=== PATIENT | male | born 1955 | race Caucasian/White ===

== ENCOUNTER 2019-02-21 11:57 | Outpatient (CLI) | payer MEDICARE, SELFPAY ==
[2019-02-21 13:22] LABS: CREATININE 1.15 mg/dL (0.70-1.30); Cholesterol 219 mg/dL (50-200); Glucose 88 mg/dL (70-100); HDL Cholesterol 48 mg/dL (40-60); LDL CHOLESTEROL 152 mg/dL (<100); Potassium 4.5 mmol/L (3.5-5.1); Triglyceride 75 mg/dL (30-150)
== END 2019-02-21 12:17 ==
PROVIDERS: PCP General Practice; Visit Provider General Practice
DX: I10 Essential (primary) hypertension (principal); E78.89 Other lipoprotein metabolism disorders
CPT/HCPCS: 36415; 80061; 82947; 83721; 82565; 84132

== ENCOUNTER 2019-02-27 14:58 | Inpatient (IN) | payer MEDICARE, BC, SELFPAY ==
[2019-02-27] VITALS (101 sets, daily range): BP systolic 107–176; BP diastolic 67–127; PULSE 86–155; RESP 10–45; TEMP 36.8–37.4; O2SAT 90–100
--- NOTE | 2019-02-27 15:04 | DI.RAD_ITS ---
SYMPTOM/DIAGNOSIS: CHEST PAIN, SOB, S/P CHEST TUBE PORTABLE AP CHEST: Comparison is made with 12/05/17. There is a left sided pneumothorax seen laterally at both upper and lower lobes. The amount of collapse is roughly 30%. There is no mediastinal shift. The heart size is normal. The aorta is mildly tortuous. The right lung appears clear. IMPRESSION: Moderate sized left pneumothorax. PORTABLE AP CHEST at 614 pm: Comparison is made with the exam performed earlier the same day at 347 pm. A left sided chest tube has been inserted with the pigtail projecting in the upper lobe. There has been marked improvement of the pneumothorax which is barely visible at the left apex. There are mildly increased densities at the left lung base. The heart size remains normal. The left lung is clear. IMPRESSION: Re-expansion of left lung status post placement of left chest tube without significant residual pneumothorax.
--- NOTE | 2019-02-27 15:04 | ED.GENADUL_ITS ---
Discharge Plan Disposition Patient Disposition: [facility] INPATIENT Condition: Improving Discharge Details Chief Complaint: SOB Clinical Impression: Spontaneous pneumothorax, Acute exacerbation of chronic obstructive pulmonary disease (COPD) Admit Date/Time: 02/27/19 19:43 Admit Provider: Rosette Dodd Attending Provider: Rosette Dodd Primary Care Provider: Alber Garcia ED Provider: Ashley Bergeron Discharge Data Discharge Date/Time-TO BE ENTERED AT DEPARTURE: 02/27/19 21:05 Medical Decision Making 63-year-old male with history of COPD, hypertension, obstructive sleep apnea was transferred shortness of breath and chest pain since last night. Patient in moderate respiratory distress on arrival, speaking in 2-3 word sentences, diminished breath sounds with wheezing and rhonchi throughout. Will give nebs and steroids, place on bipap. EKG notes a rate of 112, sinus, no acute ST depression or elevation, significant movement. Able to obtain CT chest screening for lung cancer from [facility] on 01/17/2019 which noted moderate central lobar emphysema, bilateral lower lung predominant bronchial wall thickening, mild atelectasis primarily in the left lower lung, severe coronary artery atherosclerotic calcification, very small hiatal hernia and incompletely characterized small hypodense lesions in the right and left liver lobe stable compared to prior CT but no report of PE. 1615 --chest x-ray reviewed and notes a moderate-sized left pneumothorax. Discussed with surgery and will help place pigtail chest tube. Patient removed from BiPAP due to concern for barotrauma and placed on nonrebreather. There are no ICU or telemetry beds available here. 1700 --Discussed with [facility] and no bed availability. Discussed with [facility] and no bed availability on floor but if pt does not improve after chest tube, can call back to discuss whether ICU available. 1800 --pigtail chest tube placed with assistance from surgeon Dr. Dodd at bedside. Patient feels much better. Vitals remained stable. Labs reviewed and note a white blood cell count of 11, ABG noted pH 7.3, PCO2 50, PO2 79 on BiPAP, troponin negative. 1940 --post procedure x-ray notes resolution of pneumothorax. Vitals remained stable and patient feels better. There is now a telemetry bed available here. Dr. Dodd accepts pt here for admission. Medical Records Medical records reviewed: Yes I reviewed the patient's medical records. Imaging Data Radiologic Study: Radiologist's impression: XR Chest, 1 View EXAM DATE/TIME: 02/27/2019 3:57 PM CLINICAL HISTORY: 63 years old, male; Signs and symptoms; Other: Cp/sob TECHNIQUE: Imaging protocol: XR of the chest, 1 view. COMPARISON: CR PORTABLE CHEST ONE VIEW 12/05/2017 3:09 PM FINDINGS: Lungs: Emphysematous changes. Pleural space: Left pneumothorax (30%). No sizable pleural effusion. Heart/Mediastinum: No cardiomegaly. Bones/joints: Unremarkable. IMPRESSION: Left pneumothorax (30%). Radiologic Study #2: Radiologist's impression: XR Chest, 1 View EXAM DATE/TIME: 02/27/2019 6:25 PM CLINICAL HISTORY: 63 years old, male; Signs and symptoms; Other: S/P chest tube; Confirm improvement TECHNIQUE: Imaging protocol: XR of the chest, 1 view. COMPARISON: CR XR PORTABLE CHEST AP 02/27/2019 3:47 PM FINDINGS: Tubes, catheters and devices: Interval placement of a left chest tube. Lungs: Emphysematous changes. Pleural space: No appreciable left pneumothorax. No sizable pleural effusion. Heart/Mediastinum: No cardiomegaly. Bones/joints: Unremarkable. IMPRESSION: Interval placement of a left chest tube. No appreciable left pneumothorax. Lab Data Lab results reviewed: Yes I reviewed the patient's lab results. Laboratory Tests Range/Units 02/27/19 02/27/19 02/27/19 15:25 15:25 16:23 WBC (4.4-10.8) k/cumm 11.30 H RBC (4.50-6.00) m/cumm 5.14 Hgb (13.5-17.5) g/dL 15.2 Hct (40.0-50.0) % 46.4 MCV (80-95) fL 90.3 MCH (27.0-33.0) pg 29.6 MCHC (32.0-36.0) g/dL 32.8 RDW (11.8-14.1) % 13.1 Plt Count (130-400) x1000/uL 249 MPV (8.0-11.0) fL 9.3 Immature Gran % 0.4 Neutrophils % 74.0 Lymphocytes % 13.7 Monocytes % 8.3 Eosinophils % 3.0 Basophils % 0.6 Absolute Neutrophils (1.2-6.7) k/cumm 8.36 H Absolute Lymphocytes (1.2-3.4) k/cumm 1.55 Absolute Monocytes (0.11-0.7) k/cumm 0.94 H Absolute Eosinophils (0.0-0.7) k/cumm 0.34 Absolute Basophils (0.0-0.2) k/cumm 0.07 Sample Site Right radial pCO2 (34-47) mmHg 50 H pO2 (83-108) mmHg 79 L O2 Saturation (94-98) % 95 ABG pH (7.35-7.45) 7.30 L ABG HCO3 (22-28) mmol/L 25 ABG Total CO2 (22-29) mmol/L 22 ABG Base Excess (-3-3) mmol/L -2.0 Oxygen Liter Flow L Bipap FiO2 % 28 Sodium (136-145) mmol/L 136 Potassium (3.5-5.1) mmol/L 4.6 Chloride (98-107) mmol/L 100 Carbon Dioxide (21.0-32.0) mmol/L 27.5 Anion Gap (3-11) mmol/L 8.5 BUN (7-18) mg/dL 16 Creatinine (0.70-1.30) mg/dL 1.17 Estimated GFR/1.73 m2 (mL/min/1.73m2) >= 60.00 Glucose (70-100) mg/dL 109 H Calcium (8.5-10.1) mg/dL 8.8 Magnesium (1.8-2.4) mg/dL 2.3 Total Bilirubin (0.2-1.0) mg/dL 0.4 AST (15-37) U/L 31 ALT (12-78) U/L 32 Alkaline Phosphatase (46-116) U/L 69 Troponin I (0.00-0.06) ng/mL < 0.02 NT-Pro-B Natriuret Pep ( - 299) pg/mL 34 Total Protein (6.4-8.2) g/dL 8.2 Albumin (3.4-5.0) g/dL 3.8 ECG Data Attestation: I personally reviewed and interpreted this ECG (s) as follows: Interpretation: Rate of 112, sinus tachycardia, significant movement, no acute ST elevation or depression. QTc 404. QRS 98. HPI General Mode of arrival: ambulatory . Date/Time Provider Initiated Documentation: 02/27/19 15:04 . Limitations to Documentation: no limitations . Information obtained by: patient . HPI Narrative: Patient is a 63-year-old male with a history of COPD, hypertension, obstructive sleep apnea presents with chest pain and shortness of breath since this morning. He admits to heartburn- like pain in his chest throughout the week. Also admits to cough but denies fever. Patient states he was seen at [facility] recently in which she had a CT chest and was told he possibly has a blood clot in his lung. He denies taking any anticoagulation. Related Data Home Medications Medication Instructions Recorded Confirmed aspirin [Aspir-81] 81 mg PO DAILY tab-cap 06/15/16 02/27/19 lisinopril 5 mg PO DAILY tab-cap 06/15/16 02/27/19 albuterol sulfate [ProAir HFA] 2 inh INHALATION Q6H PRN PRN 11/28/17 02/27/19 Fluticasone/Salmeterol [Advair 1 ea INHALATION BID #1 blst.w.dev 12/05/17 250-50 Diskus] albuterol sulfate 2.5 mg INHALATION Q6H PRN #10 vial 12/05/17 02/27/19 nebulizers [AeroEclipse II #1 ea 12/05/17 Nebulizer] Previous Rx's Medication Instructions Recorded Fluticasone/Salmeterol [Advair 1 ea INHALATION BID #1 blst.w.dev 12/05/17 250-50 Diskus] albuterol sulfate 2.5 mg INHALATION Q6H PRN #10 vial 12/05/17 nebulizers [AeroEclipse II #1 ea 12/05/17 Nebulizer] Allergies Allergy/AdvReac Type Severity Reaction Status Date / Time No Known Allergies Allergy Unverified 02/27/19 15:59 Review of Systems Review of Systems All systems reviewed & are unremarkable except as noted in HPI and below Constitutional Reports as per HPI, Denies chills and Denies fever(s) Eyes Denies blurry vision ENT Denies dizziness, Denies sore throat and Denies throat swelling Cardiovascular Reports chest pain and Reports dyspnea Respiratory Denies cough and Reports dyspnea Gastrointestinal Denies abdominal pain, Denies diarrhea and Denies vomiting Genitourinary Denies hematuria and Denies dysuria Musculoskeletal Denies back pain and Denies numbness Integumentary/Breasts Denies lesions and Denies rash Neurologic Denies dizziness, Denies focal weakness and Denies numbness Allergic/Immunologic Denies throat swelling PFSH Medical History COPD (chronic obstructive pulmonary disease) (Chronic) Emphysematous bleb of lung (Acute) Ruptured emphysematous bleb (Acute) COPD (chronic obstructive pulmonary disease) (Chronic) Surgical History Arthroplasty of knee Colonoscopy - MAC (07/07/16) Social History Smoking/Tobacco Use Status: Former Tobacco Use Drug use: Never Substance use type: does not use Do you feel safe in your relationship?: Yes Exam Const General: cooperative, healthy appearing and no acute distress HENMT Head: normal to inspection Face and sinus: normal facial exam Eyes General: appearance normal, both eyes and all related structures Pupils: PERRL EOM: EOM intact bilaterally Neck Neck: normal visual inspection and No submandibular swelling Lymphatic: no lymphadenopathy noted Chest Chest: normal inspection of the chest and no tenderness Resp Effort & Inspection: normal respiratory effort and able to speak in complete sentences (2-3 word sentences) Auscultation: other (Diminished breath sounds throughout with scattered wheezing and rhonchi.) Cardio Rate: regular rate Rhythm: regular rhythm GI Inspection: normal to inspection Palpation: soft, not firm, not rigid and nontender Auscultation: normal bowel sounds Skin General skin exam: no rashes or lesions noted Neuro General: alert, awake and oriented x3 Cognition: normal cognition Speech: speech normal Motor: muscle tone normal throughout Sensory Exam: no sensory deficits noted Extrem General: normal to inspection and full ROM Other: 2+ pitting edema bilateral lower extremities Psych Appearance: grossly normal Mental Status: mental status grossly normal Speech and Movement: speech and movement normal Affect: normal affect Procedures Chest Tube Chest Tube 1: Chest Tube Location: fifth interspace (Left) Size of [place] Tube (mm): 14 Chest Tube Prep: betadine prep, sterile drapes applied and sterile dressing applied Local Anesthetic: Lidocaine 1% and with Epi Amount of anesthesia used (mL): 20 Incision Made With: #11 blade Post Procedure: sutured to skin and sterile dressing applied Post Procedure CXR?: Yes Patient Tolerated Procedure: Yes Critical Care Time Critical Care Time: Yes Total Critical Care Time: 45 Attestation: Total of 45 minutes including on arrival due to respiratory distress requiring bipap and then with placement of chest tube after determining pneumothorax.
[2019-02-27] MEDS: methylPREDNISolone SUCC 125 MG VIAL IVP (15:30)
[2019-02-27 15:45] LABS: Abs Immature Grans 0.04 k/cumm (0.0-0.09); Absolute Basophil Count 0.07 k/cumm (0.0-0.2); Absolute Eosinophil Count 0.34 k/cumm (0.0-0.7); Absolute Lymphocyte Count 1.55 k/cumm (1.2-3.4); Absolute Monocyte Count 0.94 k/cumm (0.11-0.7); Absolute Neutrophil Count 8.36 k/cumm (1.2-6.7); Basophils % 0.6; HCT 46.4 % (40.0-50.0); HGB 15.2 g/dL (13.5-17.5); Immature Grans % 0.4; Lymphocytes % 13.7; Mean Corp. HGB Concentration 32.8 g/dL (32.0-36.0); Mean Corpuscular Hemoglobin 29.6 pg (27.0-33.0); Mean Corpuscular Volume 90.3 fL (80-95); Mean Platelet Volume 9.3 fL (8.0-11.0); Monocytes % 8.3; Platelet Count 249 x1000/uL (130-400); RBC 5.14 m/cumm (4.50-6.00); RBC Distribution Width 13.1 % (11.8-14.1)
[2019-02-27 16:03] LABS: ALT 32 U/L (12-78); AST 31 U/L (15-37); Albumin 3.8 g/dL (3.4-5.0); Alkaline Phosphatase 69 U/L (46-116); Anion Gap 8.5 mmol/L (3-11); BUN 16 mg/dL (7-18); Bilirubin, Total 0.4 mg/dL (0.2-1.0); CO2 27.5 mmol/L (21.0-32.0); CREATININE 1.17 mg/dL (0.70-1.30); Calcium 8.8 mg/dL (8.5-10.1); Chloride 100 mmol/L (98-107); Glucose 109 mg/dL (70-100); Magnesium 2.3 mg/dL (1.8-2.4); NT-proBNP 34 pg/mL; Potassium 4.6 mmol/L (3.5-5.1); Sodium 136 mmol/L (136-145); Total Protein 8.2 g/dL (6.4-8.2)
[2019-02-27 16:04] LABS: Troponin I < 0.02 ng/mL (0.00-0.06)
[2019-02-27] MEDS: Albuterol 2.5 MG/3 ML INH SOLN VIAL (16:13)
[2019-02-27 16:27] LABS: HCO3 25 mmol/L (22-28); pCO2 50 mmHg (34-47); pO2 79 mmHg (83-108); sO2 95 % (94-98); tCO2 22 mmol/L (22-29)
[2019-02-27 16:29] LABS: FIO2 28 %; FIO2L BIPAP L; Site Right Radial
--- NOTE | 2019-02-27 17:03 | DI.VRAD_ITS ---
EXAM: XR Chest, 1 View EXAM DATE/TIME: 02/27/2019 3:57 PM CLINICAL HISTORY: 63 years old, male; Signs and symptoms; Other: Cp/sob TECHNIQUE: Imaging protocol: XR of the chest, 1 view. COMPARISON: CR PORTABLE CHEST ONE VIEW 12/05/2017 3:09 PM FINDINGS: Lungs: Emphysematous changes. Pleural space: Left pneumothorax (30%). No sizable pleural effusion. Heart/Mediastinum: No cardiomegaly. Bones/joints: Unremarkable. IMPRESSION: Left pneumothorax (30%). THIS REPORT CONTAINS FINDINGS THAT MAY BE CRITICAL TO PATIENT CARE. The findings were verbally communicated via telephone conference with Dr. Sneha Bergeron at 5:00 PM EDT on 02/27/2019. The findings were acknowledged and understood. Dictated and Authenticated by: Puneet Galindo MD. Ordering:MAEVE Ramirez MD
[2019-02-27] MEDS: Normal Saline 1,000 ML 50 ML IV (17:45)
[2019-02-27] MEDS: Midazolam 2 MG/2 ML VIAL (17:50)
[2019-02-27] MEDS: fentaNYL 100 MCG/2 ML VIAL ×2 (17:55→20:57)
--- NOTE | 2019-02-27 18:32 | DI.VRAD_ITS ---
EXAM: XR Chest, 1 View EXAM DATE/TIME: 02/27/2019 6:25 PM CLINICAL HISTORY: 63 years old, male; Signs and symptoms; Other: S/P chest tube; Confirm improvement TECHNIQUE: Imaging protocol: XR of the chest, 1 view. COMPARISON: CR XR PORTABLE CHEST AP 02/27/2019 3:47 PM FINDINGS: Tubes, catheters and devices: Interval placement of a left chest tube. Lungs: Emphysematous changes. Pleural space: No appreciable left pneumothorax. No sizable pleural effusion. Heart/Mediastinum: No cardiomegaly. Bones/joints: Unremarkable. IMPRESSION: Interval placement of a left chest tube. No appreciable left pneumothorax. Dictated and Authenticated by: Puneet Galindo MD. Ordering:MAEVE Ramirez MD
--- NOTE | 2019-02-27 19:52 | W.PM.HP.N ---
Date of service: 02/27/19 Time of Service: 19:52 Assessment and Plan (1) Ruptured emphysematous bleb: Current visit: No Status: Acute ptx catheter placed- left cxr show resolution of PTX O2 pulm toilet repeat cxr in am. try to get off suction in am does have pulmonolgists. Had CT of chest x1 month prior. review CT and if lg amount of blebs considerate elective resection/vats he is currently tobacco free. (2) Emphysematous bleb of lung: Current visit: No Status: Acute (3) COPD (chronic obstructive pulmonary disease): Current visit: No Status: Chronic (4) HTN (hypertension): Current visit: No Status: Chronic History of Present Illness Consults Consult date: 02/27/19 Requesting physician: Ashley Bergeron Narrative: pt came inito ED w/ spontaeous TPX. pt has hx of COPD. recently dg. had CT done at [facility] an dwas suppose to be starting pulm rehab [facility]. Got up at 4am and took shower. Started having severe chest pain and sob. Came into ED at noon. Denies trauma or coughing heavily. No prior PTX. no prior chest Sxs. Did smoke 2ppd for 50 yrs. PTX catheter placed left CXR shows complete resolution of PTX. Pt will be admitted to the floor and obs and suction. Will f/u w/ [facility] as outpt. Review of Systems Review of Systems All systems reviewed & are unremarkable except as noted in HPI and below Constitutional Reports as per HPI, Reports system reviewed and no additional complaints, except as docu, Denies anorexia, Denies chills, Denies difficulty sleeping, Denies fatigue, Denies headache(s), Denies lethargy, Denies malaise, Denies poor appetite, Denies weakness, Denies weight gain and Denies weight loss Eyes Reports as per HPI, Reports system reviewed and no additional complaints, except as docu and Denies change in vision ENT Reports system reviewed and no additional complaints, except as docu, Reports as per HPI, Denies change in voice, Denies dental pain, Denies dysphagia, Denies dizziness, Denies facial pain, Denies headache(s) and Denies odynophagia Cardiovascular Reports as per HPI, Reports system reviewed and no additional complaints, except as docu, Denies chest pain, Denies chest pain with activity, Denies syncope, Denies leg edema and Reports dyspnea Respiratory Reports as per HPI, Reports system reviewed and no additional complaints, except as docu, Denies chest congestion, Reports cough, Reports pain with cough and Reports dyspnea Comments: severe SOB and low sats. Has never had PTX before. denies chest trauma. Had CT f chest 1 month ago- does not have results. Gastrointestinal Reports as per HPI, Reports system reviewed and no additional complaints, except as docu, Denies abdominal pain, Denies bloating, Denies change in bowel habits, Denies change in stool character, Denies constipation, Denies cramping, Denies dysphagia, Denies early satiety, Denies heartburn, Denies diarrhea, Denies nausea, Denies odynophagia and Denies vomiting Genitourinary Reports system reviewed and no additional complaints, except as docu Musculoskeletal Reports system reviewed and no additional complaints, except as docu, Reports as per HPI, Denies abnormal gait, Denies arthralgias and Denies muscle weakness Integumentary/Breasts Reports system reviewed and no additional complaints, except as docu, Reports as per HPI, Denies changing lesions, Denies new lesions and Denies jaundice Neurologic Reports system reviewed and no additional complaints, except as docu, Reports as per HPI, Denies abnormal speech, Denies abnormal gait, Denies dizziness, Denies syncope, Denies headache(s), Denies memory loss and Denies weakness Psychiatric Reports system reviewed and no additional complaints, except as docu, Reports as per HPI, Denies change in appetite and Denies memory loss Endocrine Denies fatigue, Denies polydipsia and Denies polyuria Hematologic/Lymphatic Reports system reviewed and no additional complaints, except as docu, Denies easy bleeding and Denies easy bruising Allergic/Immunologic Denies system reviewed and no additional complaints, except as docu, Reports as per HPI and Denies urticaria PFSH Medical History HTN (hypertension) (Chronic) COPD (chronic obstructive pulmonary disease) (Chronic) Emphysematous bleb of lung (Acute) Ruptured emphysematous bleb (Acute) COPD (chronic obstructive pulmonary disease) (Chronic) Surgical History Arthroplasty of knee Colonoscopy - MAC (09/30/16) Social History Smoking/Tobacco Use Status: Former Tobacco Use Drug use: Never Substance use type: does not use Do you feel safe in your relationship?: Yes Meds Allergies Allergy/AdvReac Type Severity Reaction Status Date / Time No Known Allergies Allergy Verified 03/06/19 14:47 Exam Const General: cooperative, healthy appearing, comfortable, no acute distress, well developed and well groomed Nutritional Appearance: average body habitus and well nourished Orientation: alert, awake and oriented x3 HENMT Head: normal to inspection, normocephalic and atraumatic Ears: hearing grossly normal bilaterally and external ears normal General nose exam: external nose normal Face and sinus: normal facial exam and sinuses nontender Mouth: oral mucosae normal, lip normal, tongue normal and moist mucous membranes Teeth and gingiva: dentition normal Eyes General: appearance normal, both eyes and all related structures Conjunctivae: conjunctivae normal Sclera: sclerae normal Pupils: PERRL Neck Neck: normal visual inspection and full ROM Chest Chest: normal inspection of the chest Resp Effort & Inspection: abnormal respiratory pattern, cough, labored, respiratory distress and tachypneic Auscultation: clear to auscultation bilaterally, no rales, no rhonchi and no wheezes Cardio Jugular venous pressure: no JVD Rate: tachycardic Rhythm: regular rhythm and other (sinus tach) GI Inspection: normal to inspection, no edema and non-distended Palpation: soft, no masses, nontender and No ascites Auscultation: normal bowel sounds Skin General skin exam: no rashes or lesions noted Trauma: no lacerations or abrasions Neuro General: alert, oriented x3, oriented, gait normal, moves all extremities, no focal motor deficits and CN's II-XI intact bilaterally Cognition: normal cognition Speech: speech normal Gait: normal gait Motor: muscle tone normal throughout Extrem General: normal to inspection, full ROM and no clubbing, cyanosis or edema Psych Appearance: grossly normal and well kempt Mental Status: mental status grossly normal Speech and Movement: speech and movement normal Affect: normal affect Results Labs : 02/27/19 15:25 02/27/19 15:25 Laboratory Results - last 24 hr 02/27/19 02/27/19 02/27/19 15:25 15:25 16:23 WBC 11.30 H RBC 5.14 Hgb 15.2 Hct 46.4 MCV 90.3 MCH 29.6 MCHC 32.8 RDW 13.1 Plt Count 249 MPV 9.3 Immature Gran % 0.4 Neutrophils % 74.0 Lymphocytes % 13.7 Monocytes % 8.3 Eosinophils % 3.0 Basophils % 0.6 Absolute Neutrophils 8.36 H Absolute Lymphocytes 1.55 Absolute Monocytes 0.94 H Absolute Eosinophils 0.34 Absolute Basophils 0.07 Sample Site Right radial pCO2 50 H pO2 79 L O2 Saturation 95 ABG pH 7.30 L ABG HCO3 25 ABG Total CO2 22 ABG Base Excess -2.0 Oxygen Liter Flow Bipap FiO2 28 Sodium 136 Potassium 4.6 Chloride 100 Carbon Dioxide 27.5 Anion Gap 8.5 BUN 16 Creatinine 1.17 Estimated GFR/1.73 m2 >= 60.00 Glucose 109 H Calcium 8.8 Magnesium 2.3 Total Bilirubin 0.4 AST 31 ALT 32 Alkaline Phosphatase 69 Troponin I < 0.02 NT-Pro-B Natriuret Pep 34 Total Protein 8.2 Albumin 3.8 Last Vital Signs Temp 36.8 C 02/27/19 15:56 Pulse 98 H 02/27/19 18:41 Resp 25 H 02/27/19 18:41 BP 134/85 02/27/19 18:41 Pulse Ox 95 02/27/19 18:41
--- NOTE | 2019-02-27 21:55 | W.PM.OP ---
Date of service: 02/27/19 Time of Service: 21:55 Operative Note DATE OF PROCEDURE: 02/27/19 PRE-OP DIAGNOSIS: spontaneous PTX/epnysematous blebs POST-OP DIAGNOSIS: same PROCEDURE: instertion tpx caatheter SURGEON: Ashley Saravia ASSISTING SURGEON: Rosette Dodd ANESTHESIA: local and other ESTIMATED BLOOD LOSS: 1 PATHOLOGY: none sent COMPLICATIONS: None Patient was transported to: ICU Patient's condition: stable Indications: ptx Procedure Description: dictation per dr. saravia
[2019-02-27] MEDS: Docusate Sodium 100 MG CAP PO (22:14)
[2019-02-27] MEDS: Normal Saline Flush 10 ML SYR IVP (22:14)
[2019-02-27] MEDS: Lactated Ringers 1,000 ML 30 ML IV (22:39)
[2019-02-27] MEDS: Ketorolac 15 MG/ML VIAL IVP (22:44)
[2019-02-28] VITALS (135 sets, daily range): BP systolic 92–140; BP diastolic 61–90; PULSE 85–114; RESP 4–29; TEMP 36.1–37.6; O2SAT 90–100
[2019-02-28] MEDS: Albuterol 2.5 MG/3 ML INH SOLN VIAL UPD ×2 (02:51→11:58)
[2019-02-28] MEDS: Ketorolac 15 MG/ML VIAL IVP ×3 (03:19→15:27)
[2019-02-28] MEDS: Calcium Carbonate *TUMS* 500 MG CHEW PO ×5 (03:25→19:14)
--- NOTE | 2019-02-28 05:50 | DI.RAD_ITS ---
SYMPTOM/DIAGNOSIS: F/U PNEUMOTHORAX PORTABLE AP CHEST: Comparison is made with the previous day's exams. There has been no change in the position of the left sided chest tube. No left pneumothorax is visible. There is no subcutaneous air. The heart size is normal. There has been some interval clearing of the previously noted left basilar densities. IMPRESSION: Stable appearance of chest tube. No visible pneumothorax.
--- NOTE | 2019-02-28 06:20 | DI.VRAD_ITS ---
EXAM: XR Chest, 1 View EXAM DATE/TIME: 02/28/2019 12:00 AM CLINICAL HISTORY: 63 years old, male; Condition or disease; Other: Pneumothorax; Prior surgery; Surgery date: Post-operative (0-2 days); Surgery type: Chest tube TECHNIQUE: Imaging protocol: XR of the chest, 1 view. COMPARISON: SC XR PORTABLE CHEST AP 02/27/2019 6:14 PM FINDINGS: Tubes, catheters and devices: Left chest tube. Lungs: No acute pulmonary infiltrate. Pleural space: Unremarkable. No pleural effusion. No pneumothorax. Heart/Mediastinum: Unremarkable. No cardiomegaly. Bones/joints: Unremarkable. IMPRESSION: No acute finding. Dictated and Authenticated by: Pablo Munson MD. Ordering:MANISHA Dinero MD
--- NOTE | 2019-02-28 07:35 | PDOC.CMIN ---
- If Service Date Differs Date of service: 02/28/19 Time of Service: 07:35 Care Management Initial Assess REASON FOR HOSPITALIZATION:: Ruptured emphysematous bleb PAST MEDICAL HISTORY/PAST SURGICAL HISTORY:: Medical History: COPD (chronic obstructive pulmonary disease) (Chronic). Surgical History: Arthroplasty of knee. Colonoscopy - MAC (07/07/16) PREVIOUS FUNCTIONAL STATUS/SOCIAL/FAMILY SUPPORTS:: Jeremiah lives in a single family home in [facility]. He has a border who pays rent. Jeremiah retired form [employer] last summer. 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 Jimmy has one daughter and an 8 year old grandson that he is very close to. CURRENT FUNCTIONAL STATUS:: Jimmy was sitting up in bed in the ICU when CM visited. He was pleasant and receptive to answering questions. Jimmy says his pain is well controlled with medication. He said it was about a 2 on a scale of 1-10 at that time. He discussed his past history of smoking and his COPD. He says he uses CPAP and alsohas a nebulizer. He relayed that he hopes to be discharged by Sunday. ADVANCE DIRECTIVES:: None on file at [facility], however he has completed Advanced Directives and they are on file with his PCP and his daughter has a copy. He states that he will have a copy brought to [facility]. Has patient been provided with information about the portal?: Yes Did the patient sign up for the portal?: No CODE STATUS:: Full Code INSURANCE COVERAGE / FINANCIAL ISSUES:: Medicare CURRENT HOME/COMMUNITY SERVICES/EQUIPMENT:: None currently PRIMARY CARE PHYSICIAN:: Jonny Garcia MD POTENTIAL DISCHARGE NEEDS:: None identified at this time. PATIENT/FAMILY EDUCATION NEEDS:: DISCHARGE PLAN, LIMITATIONS, FOLLOW UP PLAN OF CARE, ASK ME THREE. ANTICIPATED BARRIERS TO DISCHARGE:: none identified TRANSPORTATION:: Via private automobile with daughter when ready. PLAN:: Jimmy remains ICU level of care. He is receiving IV fluids and his respiratory status is being monitored closely. He will be discharged home when ready, likely with no services in the home. CM will continure to provide support to patient, family, care team and discharge plan of care.
--- NOTE | 2019-02-28 07:43 | INITIAL_ITS ---
- If Service Date Differs Date of service: 02/28/19 Time of Service: 07:35 Care Management Initial Assess REASON FOR HOSPITALIZATION:: Ruptured emphysematous bleb PAST MEDICAL HISTORY/PAST SURGICAL HISTORY:: Medical History: COPD (chronic obstructive pulmonary disease) (Chronic). Surgical History: Arthroplasty of knee. Colonoscopy - MAC (07/07/16) PREVIOUS FUNCTIONAL STATUS/SOCIAL/FAMILY SUPPORTS:: Jeremiah lives in a single [place] home in [facility]. He has a border who pays rent. Jeremiah retired form [employer] last summer. 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 Jimmy has one daughter and an 8 year old grandson that he is very close to. CURRENT FUNCTIONAL STATUS:: Jimmy was sitting up in bed in the ICU when CM visited. He was pleasant and receptive to answering questions. Jimmy says his pain is well controlled with medication. He said it was about a 2 on a scale of 1- 10 at that time. He discussed his past history of smoking and his COPD. He says he uses CPAP and alsohas a nebulizer. He relayed that he hopes to be discharged by Sunday. ADVANCE DIRECTIVES:: None on file at [facility], however he has completed Advanced Directives and they are on file with his PCP and his daughter has a copy. He states that he will have a copy brought to [facility]. Has patient been provided with information about the portal?: Yes Did the patient sign up for the portal?: No CODE STATUS:: Full Code INSURANCE COVERAGE / FINANCIAL ISSUES:: Medicare CURRENT HOME/COMMUNITY SERVICES/EQUIPMENT:: None currently PRIMARY CARE PHYSICIAN:: Jonny Garcia MD POTENTIAL DISCHARGE NEEDS:: None identified at this time. PATIENT/FAMILY EDUCATION NEEDS:: DISCHARGE PLAN, LIMITATIONS, FOLLOW UP PLAN OF CARE, ASK ME THREE. ANTICIPATED BARRIERS TO DISCHARGE:: none identified TRANSPORTATION:: Via private automobile with daughter when ready. PLAN:: Jimmy remains ICU level of care. He is receiving IV fluids and his respiratory status is being monitored closely. He will be discharged home when ready, likely with no services in the home. CM will continure to provide support to patient, family, care team and discharge plan of care.
[2019-02-28] MEDS: Budesonide/Formoterol 160/4.5 6 GM 60 PUFF INH IH (08:07)
[2019-02-28] MEDS: Lisinopril 5 MG TAB PO (09:03)
[2019-02-28] MEDS: Enoxaparin 40 MG/0.4 ML SYR SC (09:03)
[2019-02-28] MEDS: Docusate Sodium 100 MG CAP PO ×3 (09:04→19:13)
[2019-02-28] MEDS: Normal Saline Flush 10 ML SYR IVP ×2 (09:04→15:30)
--- NOTE | 2019-02-28 09:56 | NUR.NOTE ---
Millicent SUERO from surgery was in to see the patient this morning and was updated on status. Patient's pain is well controlled and usually only hurts when he is coughing or laughing. Millicent gave verbal order for CO2 monitoring to stop. An order came through for patient to be put to Water seal by Dr. Ddod. I called and verified with Millicent that Dr. Dodd wanted the suction turned off and that this could be noted in the order. The patient's suction was turned off and he was placed on water seal at 0950 monitor time. His VS have remained within a very close range from the initial starting water seal reading. Lung sounds were assessed several minutes in and remain with good airflow throughout. The patient has not had any difficulty breathing. Nursing Note:
--- NOTE | 2019-02-28 11:30 | DI.RAD_ITS ---
SYMPTOMS/DIAGNOSIS: PTX PA AND LATERAL CHEST AT 11:23 AM: Comparison is made with portable exam performed at 5:46 a.m. There has been no change in the positioning of the left chest tube. A tiny left pneumothorax is visible near the apex. There are minimal residual linear densities at the left lung base.
--- NOTE | 2019-02-28 18:10 | W.PM.PROGNOT ---
Date of Service Date of service: 02/28/19 Time of Service: 18:10 Assessment and Plan (1) COPD (chronic obstructive pulmonary disease): Current visit: Yes Status: Chronic (2) Emphysematous bleb of lung: Current visit: Yes Status: Acute (3) Ruptured emphysematous bleb: Current visit: Yes Status: Acute no PTX on water seal pulled tube and will check CXXR in 2 hrs and is not PTX can d/c. no lifting over 5#'s x 2 wks no strenuous activity no cp or sob no productive cough cont inhalers f/u pulm f/u w/ myself on for repeat CXR if any severe CP or sob or productive cough or temp- return to ED no straining to move bowels (4) HTN (hypertension): Current visit: Yes Status: Chronic Subjective Interval history since last seen: Pt is doing well. no headaches. No CP or SOB. no productive cough. no dysuria. no leg pain or swelling. + cough. ,10cc serous drainage from catheter. O2 stable on RA. doing IS well CXR shows no recorrent PTX on water seal. will pull catheter and repeat film in 2 hrs jordon po's no n/v. no leg pain or swelling. good urine oupt Exam Const General: cooperative, healthy appearing, comfortable, no acute distress, well developed and well groomed Nutritional Appearance: average body habitus and well nourished Orientation: alert, awake and oriented x3 HENMT Head: normal to inspection, normocephalic and atraumatic Ears: hearing grossly normal bilaterally and external ears normal General nose exam: external nose normal Face and sinus: normal facial exam and sinuses nontender Mouth: oral mucosae normal, lip normal, tongue normal and moist mucous membranes Teeth and gingiva: dentition normal Eyes General: appearance normal, both eyes and all related structures Conjunctivae: conjunctivae normal Sclera: sclerae normal Pupils: PERRL Neck Neck: normal visual inspection and full ROM Chest Chest: normal inspection of the chest Resp Effort & Inspection: normal respiratory effort, able to speak in complete sentences, no cough, no nasal flaring, not tachypneic and no use of accessory muscles Auscultation: clear to auscultation bilaterally, no rales, no rhonchi and no wheezes Other: no air leak. min drainage. on seal. tube site c/d/i. puleed tube and placed compression dressing Cardio Jugular venous pressure: no JVD Rate: regular rate Rhythm: regular rhythm GI Inspection: normal to inspection, no edema and non-distended Palpation: soft, no masses, nontender and No ascites Auscultation: normal bowel sounds Skin General skin exam: no rashes or lesions noted Trauma: no lacerations or abrasions Neuro General: alert, oriented x3, oriented, gait normal, moves all extremities, no focal motor deficits and CN's II-XI intact bilaterally Cognition: normal cognition Speech: speech normal Gait: normal gait Motor: muscle tone normal throughout Extrem General: normal to inspection, full ROM and no clubbing, cyanosis or edema Psych Appearance: grossly normal and well kempt Mental Status: mental status grossly normal Speech and Movement: speech and movement normal Affect: normal affect Objective Objective Clinical Data: Vital Signs Temperature 37.6 C H 02/28/19 16:03 Temperature Source Temporal Artery Scan 02/28/19 16:03 Pulse 102 H 02/28/19 15:01 Pulse 102 H 02/28/19 15:50 Respiratory Rate 23 02/28/19 15:50 Respiratory Effort 02/28/19 16:03 Respiratory Depth Normal 02/28/19 16:03 Respiratory Pattern Normal 02/28/19 16:03 Blood Pressure 124/68 02/28/19 15:01 Blood Pressure Mean 82 02/28/19 15:01 Blood Pressure Position Supine 02/28/19 16:03 Pulse Oximetry 93 L 02/28/19 15:50 Respiratory End-tidal CO2 24 02/28/19 08:50 Oxygen Delivery Method Room Air 02/28/19 16:03 Oxygen Flow Rate 0 02/28/19 16:03 Fraction of Inspired Oxygen (FIO2) 28 02/27/19 16:15 Pain Level 5 02/28/19 15:27 Intake & Output 02/27/19 02/28/19 02/28/19 23:59 11:59 23:59 Intake Total 61.667 / 61.667 368 / 848 480 / 848 Output Total 0 / 0 400 / 650 250 / 650 Balance 61.667 / 61.667 -32 / 198 230 / 198 Weight 98.6 kg 97.5 kg Intake: IV 61.667 / 61.667 Oral 368 / 848 480 / 848 Output: Chest Tube Drainage 0 / 0 0 / 0 Urine 400 / 650 250 / 650 Other: Urine Color Light Joleen Yellow Urine Appearance Clear Clear Urine Odor Normal Comment No void at this time. pt has not voided yet this shift. Voiding Methods Bedside Commode Urinal Laboratory Results WBC 11.30 k/cumm (4.4-10.8) H 02/27/19 15:25 RBC 5.14 m/cumm (4.50-6.00) 02/27/19 15:25 Hgb 15.2 g/dL (13.5-17.5) 02/27/19 15:25 Hct 46.4 % (40.0-50.0) 02/27/19 15:25 MCV 90.3 fL (80-95) 02/27/19 15:25 MCH 29.6 pg (27.0-33.0) 02/27/19 15:25 MCHC 32.8 g/dL (32.0-36.0) 02/27/19 15:25 RDW 13.1 % (11.8-14.1) 02/27/19 15:25 Plt Count 249 x1000/uL (130-400) 02/27/19 15:25 MPV 9.3 fL (8.0-11.0) 02/27/19 15:25 Immature Gran % 0.4 02/27/19 15:25 Neutrophils % 74.0 02/27/19 15:25 Lymphocytes % 13.7 02/27/19 15:25 Monocytes % 8.3 02/27/19 15:25 Eosinophils % 3.0 02/27/19 15:25 Basophils % 0.6 02/27/19 15:25 Absolute Neutrophils 8.36 k/cumm (1.2-6.7) H 02/27/19 15:25 Absolute Lymphocytes 1.55 k/cumm (1.2-3.4) 02/27/19 15:25 Absolute Monocytes 0.94 k/cumm (0.11-0.7) H 02/27/19 15:25 Absolute Eosinophils 0.34 k/cumm (0.0-0.7) 02/27/19 15:25 Absolute Basophils 0.07 k/cumm (0.0-0.2) 02/27/19 15:25 Sample Site Right radial 02/27/19 16:23 pCO2 50 mmHg (34-47) H 02/27/19 16:23 pO2 79 mmHg (83-108) L 02/27/19 16:23 O2 Saturation 95 % (94-98) 02/27/19 16:23 ABG pH 7.30 (7.35-7.45) L 02/27/19 16:23 ABG HCO3 25 mmol/L (22-28) 02/27/19 16:23 ABG Total CO2 22 mmol/L (22-29) 02/27/19 16:23 ABG Base Excess -2.0 mmol/L (-3-3) 02/27/19 16:23 Oxygen Liter Flow Bipap L 02/27/19 16:23 FiO2 28 % 02/27/19 16:23 Sodium 136 mmol/L (136-145) 02/27/19 15:25 Potassium 4.6 mmol/L (3.5-5.1) 02/27/19 15:25 Chloride 100 mmol/L (98-107) 02/27/19 15:25 Carbon Dioxide 27.5 mmol/L (21.0-32.0) 02/27/19 15:25 Anion Gap 8.5 mmol/L (3-11) 02/27/19 15:25 BUN 16 mg/dL (7-18) 02/27/19 15:25 Creatinine 1.17 mg/dL (0.70-1.30) 02/27/19 15:25 Estimated GFR/1.73 m2 >= 60.00 (mL/min/1.73m2) 02/27/19 15:25 Glucose 109 mg/dL (70-100) H 02/27/19 15:25 Calcium 8.8 mg/dL (8.5-10.1) 02/27/19 15:25 Magnesium 2.3 mg/dL (1.8-2.4) 02/27/19 15:25 Total Bilirubin 0.4 mg/dL (0.2-1.0) 02/27/19 15:25 AST 31 U/L (15-37) 02/27/19 15:25 ALT 32 U/L (12-78) 02/27/19 15:25 Alkaline Phosphatase 69 U/L (46-116) 02/27/19 15:25 Troponin I < 0.02 ng/mL (0.00-0.06) 02/27/19 15:25 NT-Pro-B Natriuret Pep 34 pg/mL (-299) 02/27/19 15:25 Total Protein 8.2 g/dL (6.4-8.2) 02/27/19 15:25 Albumin 3.8 g/dL (3.4-5.0) 02/27/19 15:25
--- NOTE | 2019-02-28 18:30 | DI.RAD_ITS ---
SYMPTOMS/DIAGNOSIS: PTX, S/P TUBE REMOVAL CHEST AT 6:35 PM: Comparison with examination from earlier in the day. The left chest tube has been removed. No demonstrable pneumothorax is identified. No effusions are present. Atelectatic changes are seen in the left lung base. The nodular opacity in the left lung base laterally likely reflects a nipple shadow. No nodular density is seen on the examination from earlier in the day. The heart size and pulmonary vasculature are within normal limits. IMPRESSION: Removal of left chest tube. No pneumothorax.
--- NOTE | 2019-02-28 18:54 | DI.VRAD_ITS ---
EXAM: XR Chest, 2 Views EXAM DATE/TIME: 02/28/2019 5:13 PM CLINICAL HISTORY: 63 years old, male; Device placement; Chest tube; Additional info: Chest tube removed TECHNIQUE: Imaging protocol: XR of the chest, 2 views. COMPARISON: CR XR CHEST 2V PA LATERAL 02/28/2019 11:23 AM FINDINGS: Tubes, catheters and devices: Left chest tube removed. Lungs: Patchy alveolar density in the peripheral left lung base consistent with mild atelectasis, not significantly changed. 7 mm nodular density in the peripheral right base is felt to represent a nipple shadow based on comparison to previous chest x-ray 11/16/2017. Pleural space: No pleural effusion. No pneumothorax. Heart/Mediastinum: Heart size normal. Moderate aortic tortuosity. Slightly congested central vasculature. No tracheal shift. Bones/joints: No acute osseous abnormalities are identified. IMPRESSION: 1. Left chest tube removed, no pneumothorax. 2. Left basilar atelectasis unchanged. Dictated and Authenticated by: Fazal Piedra MD. Ordering:MANISHA Dinero MD
--- NOTE | 2019-02-28 18:59 | W.PM.DS.N ---
Date of service: 02/28/19 Time of Service: 19:00 DS: Diagnosis Discharge Diagnosis (1) COPD (chronic obstructive pulmonary disease): Status: Chronic (2) Emphysematous bleb of lung: Status: Acute (3) Ruptured emphysematous bleb: Status: Acute (4) HTN (hypertension): Status: Chronic Discharge Plan Disposition Patient Disposition: HOME Condition: Improving Discharge Details Reason For Visit: SPONTANEOUS PNEUMONIA SECONDARY TO BLEB/COPD Admit Date/Time: 02/27/19 19:43 Admit Provider: Rosette Dodd Attending Provider: Rosette Dodd Primary Care Provider: Alber Garcia Home Meds and New Rx's Prescriptions: New ibuprofen 600 mg tablet 600 mg PO TID-QID PRN (Reason: pain) Qty: 60 RF: 3 Continued aspirin [Aspir-81] 81 MG tablet,delayed release (DR/EC) 81 mg PO DAILY RF: 0 lisinopril 2.5 MG tablet 5 mg PO DAILY RF: 0 albuterol sulfate [ProAir HFA] 8.5 GM HFA aerosol inhaler 2 inh Inhalation Q6H PRN PRNRF: 0 Fluticasone/Salmeterol [Advair 250-50 Diskus] 1 EACH Blst.W.Dev 1 ea Inhalation BID Qty: 1 RF: 0 albuterol sulfate 2.5 MG/3 ML solution for nebulization 2.5 mg Inhalation Q6H PRN (Reason: Wheezing) Qty: 10 RF: 0 nebulizers [AeroEclipse II Nebulizer] 1 EACH misc 1 ea Miscellaneous DIRECTED PRNQty: 1 RF: 0 Discharge Instructions Additional Instructions: Keep an ice bag on the incision. 20 minutes on and 20 minutes off. Ice keeps the swelling down and swelling causes pain. Make sure you wrap the ice pack in a towel and don't apply directly to the skin. -No driving x 24 hrs -Follow-up with Dr. Dodd - call for appt on sunday -regular diet -no straining to move bowels - if you do not move your bowels daily take a dose of OTC milk of magnesia -It is ok to shower. No bathe, soaking, swimming or hot tubs. -cover chest dressing to shower -DO NOT removed chest dressing until Sunday -You may find that your appetite is smaller. Eat 3-6 small meals throughout the day. It is important to drink lots of water after surgery, 6-10 glasses a day. -incentive spirometry: continue to do this 10x/hour while awake. -We do want you up walking, at least 5-6 times per day. This is very important to prevent pneumonia and blood clots. You can climb stairs, take them slowly. -No lifting over 5 pounds. This is very important to avoid developing a hernia in your incision. -You may find that you are very tired after surgery- this is normal. -please do not smoke for a minimum of 72 hours after surgery. Activity:: no lifting over 53. no strenuous acitivty x 2 wks Equipment/Supplies:: incentive spirometry 10x/hour while awake Diet:: As Tolerated Discharge Orders Discharge Orders: Discharge Order (Routine); Ordered 02/28/19 Ordered By: Rosette Dodd Discharge Data Discharge Date/Time-TO BE ENTERED AT DEPARTURE: 02/28/19 20:00 Discharge Comment: brother driving him home to stay with him for now. DS: Summary Status at Discharge Functional status at discharge: independent ambulation Time Spent with Patient Less than 30 minutes Quality: AMI Clinical Trial Participant: No Exam Const General: cooperative, healthy appearing, comfortable, no acute distress, well developed and well groomed Nutritional Appearance: average body habitus and well nourished Orientation: alert, awake and oriented x3 HENMT Head: normal to inspection, normocephalic and atraumatic Ears: hearing grossly normal bilaterally and external ears normal General nose exam: external nose normal Face and sinus: normal facial exam and sinuses nontender Mouth: oral mucosae normal, lip normal, tongue normal and moist mucous membranes Teeth and gingiva: dentition normal Eyes General: appearance normal, both eyes and all related structures Conjunctivae: conjunctivae normal Sclera: sclerae normal Pupils: PERRL Neck Neck: normal visual inspection and full ROM Chest Chest: normal inspection of the chest Other: lung is up on CXR. no ptx. no fluid or infilt or masses Resp Effort & Inspection: normal respiratory effort, able to speak in complete sentences, cough (chronic. non productive. catheter removed- site was C/D/I. dressing in p), no nasal flaring, not tachypneic and no use of accessory muscles Auscultation: clear to auscultation bilaterally, no rales, no rhonchi and no wheezes Cardio Jugular venous pressure: no JVD Rate: regular rate Rhythm: regular rhythm GI Inspection: normal to inspection, no edema and non-distended Palpation: soft, no masses, nontender and No ascites Auscultation: normal bowel sounds Skin General skin exam: no rashes or lesions noted Trauma: no lacerations or abrasions Neuro General: alert, oriented x3, oriented, gait normal, moves all extremities, no focal motor deficits and CN's II-XI intact bilaterally Cognition: normal cognition Speech: speech normal Gait: normal gait Motor: muscle tone normal throughout Extrem General: normal to inspection, full ROM and no clubbing, cyanosis or edema Psych Appearance: grossly normal and well kempt Mental Status: mental status grossly normal Speech and Movement: speech and movement normal Affect: normal affect DS: Data Vitals/I&O Vitals and I&O: Vital Signs Temperature 37.6 C H 02/28/19 16:03 Temperature Source Temporal Artery Scan 02/28/19 16:03 Pulse 102 H 02/28/19 15:01 Pulse 102 H 02/28/19 15:50 Respiratory Rate 23 02/28/19 15:50 Respiratory Effort 02/28/19 16:03 Respiratory Depth Normal 02/28/19 16:03 Respiratory Pattern Normal 02/28/19 16:03 Blood Pressure 124/68 02/28/19 15:01 Blood Pressure Mean 82 02/28/19 15:01 Blood Pressure Position Supine 02/28/19 16:03 Pulse Oximetry 93 L 02/28/19 15:50 Respiratory End-tidal CO2 02/28/19 08:50 Oxygen Delivery Method Room Air 02/28/19 16:03 Oxygen Flow Rate 0 02/28/19 16:03 Fraction of Inspired Oxygen (FIO2) 28 02/27/19 16:15 Pain Level 5 02/28/19 15:27 Intake & Output 02/27/19 02/28/19 02/28/19 23:59 11:59 23:59 Intake Total 61.667 / 61.667 368 / 848 480 / 848 Output Total 0 / 0 400 / 650 250 / 650 Balance 61.667 / 61.667 -32 / 198 230 / 198 Weight 98.6 kg 97.5 kg Intake: IV 61.667 / 61.667 Oral 368 / 848 480 / 848 Output: Chest Tube Drainage 0 / 0 0 / 0 Urine 400 / 650 250 / 650 Other: Urine Color Light Joleen Yellow Urine Appearance Clear Clear Urine Odor Normal Comment No void at this time. pt has not voided yet this shift. Voiding Methods Bedside Commode Urinal PFSH Medical History HTN (hypertension) (Chronic) COPD (chronic obstructive pulmonary disease) (Chronic) Emphysematous bleb of lung (Acute) Ruptured emphysematous bleb (Acute) COPD (chronic obstructive pulmonary disease) (Chronic) Surgical History Arthroplasty of knee Colonoscopy - MAC (07/07/16) Social History Smoking/Tobacco Use Status: Former Tobacco Use Drug use: Never Substance use type: does not use Do you feel safe in your relationship?: Yes
[2019-02-28] MEDS: Milk of Magnesia 30 ML CUP PO (19:13)
== END 2019-02-28 20:00 | disposition home or self-care (01) | DRG 191 ==
LOC: ER 19:14 → ICU 21:25
PROVIDERS: Admitting Provider Surgery; Emergency Provider Physician Assistant; PCP General Practice; Visit Provider Surgery
DX: J44.9 Chronic obstructive pulmonary disease, unspecified (principal); J93.83 Other pneumothorax; J43.8 Other emphysema; Z87.891 Personal history of nicotine dependence; I10 Essential (primary) hypertension; G47.33 Obstructive sleep apnea (adult) (pediatric)
CPT/HCPCS: 32552; 36415; 71045; 80053; 82805; 93005; 94640; 96361; 96374; 96375; 99222; 99223; 99238; 99239; 99285; J1650; NC; 36600; 71046; 83735; 83880; 84484; 85025; 93010; J1885; J2250; J2930; J3010; J7613

== ENCOUNTER → 2019-03-06 14:16 | Outpatient (BNVA) | payer MEDICARE, BC, SELFPAY | PROVIDERS: PCP General Practice; Referring Provider General Practice; Visit Provider Surgery | DX: R69 Illness, unspecified (principal) ==

== ENCOUNTER 2019-03-06 15:46 | Outpatient (CLI) | payer MEDICARE, BC, SELFPAY ==
--- NOTE | 2019-03-06 14:37 | DI.RAD_ITS ---
SYMPTOMS/DIAGNOSIS: COPD, EMPHYSEMATOUS BLEB, J44.9, J43.9, S/P PNEUMOTHORAX PA AND LATERAL CHEST: The left lung remains well expanded. There is no infiltrate or pleural effusion. The cardiovascular structures appear intact. SUMMARY: The left lung remains well expanded. There is no evidence of an infiltrate. The heart is not enlarged.
--- NOTE | 2019-03-16 00:24 | DI.VRAD_ITS ---
EXAM: XR Chest, 1 View EXAM DATE/TIME: 03/16/2019 12:15 AM CLINICAL HISTORY: 63 years old, male; Signs and symptoms; Shortness of breath; Patient HX: SOB, recent chest tube removed TECHNIQUE: Imaging protocol: XR of the chest, 1 view. COMPARISON: CR XR CHEST 2V PA LATERAL 03/06/2019 2:35 PM FINDINGS: Lungs: Lungs are hyperinflated. Small amount of probable scar in the left base. Pleural space: Unremarkable. No evidence of pneumothorax. Heart/Mediastinum: Unremarkable. Heart size within normal limits for technique. Bones/joints: Unremarkable. IMPRESSION: COPD. No acute findings. Dictated and Authenticated by: Kang Pradhan MD. Ordering:EMILY Winchester MD
[2019-03-16 00:45] LABS: BE -2.1 mmol/L (-3-3); HCO3 25 mmol/L (22-28); pCO2 60 mmHg (34-47); pH 7.24 (7.35-7.45); pO2 225 mmHg (83-108)
[2019-03-16 00:47] LABS: FIO2L BiPAP L; Site Right Radial
[2019-03-16 00:48] LABS: FIO2 30 %
== END 2019-03-06 16:06 ==
PROVIDERS: Student in an Organized Health Care Education/Training Program; PCP General Practice; Visit Provider Surgery
DX: J44.9 Chronic obstructive pulmonary disease, unspecified; Z09 Encounter for follow-up examination after completed treatment for conditions other than malignant neoplasm; J93.83 Other pneumothorax; J43.9 Emphysema, unspecified
CPT/HCPCS: 99213; 71046

== ENCOUNTER 2019-03-16 00:02 | Inpatient (IN) | payer MEDICARE, BC, SELFPAY ==
[2019-03-16] VITALS (82 sets, daily range): BP systolic 95–158; BP diastolic 65–96; PULSE 69–123; RESP 1–32; TEMP 36.7–37.4; O2SAT 91–100
--- NOTE | 2019-03-16 00:07 | DI.RAD_ITS ---
SYMPTOM/DIAGNOSIS: SOB, RECENT CHEST TUBE REMOVED PORTABLE AP CHEST: Comparison is made with 03/06/19. Heart size and pulmonary vasculature are within normal limits. No findings of a recurrent or residual pneumothorax or pleural effusion is seen. There is scarring seen in the lung bases. No focal consolidating infiltrate is present. IMPRESSION: No acute pulmonary process. No evidence of a recurrent pneumothorax.
[2019-03-16] MEDS: methylPREDNISolone SUCC 125 MG VIAL (00:20)
[2019-03-16] MEDS: MAGNESIUM SULFATE 2 GM/50 ML BAG 100 GM (00:20)
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
[2019-03-16 00:44] LABS: Abs Immature Grans 0.04 k/cumm (0.0-0.09); Absolute Basophil Count 0.09 k/cumm (0.0-0.2); Absolute Eosinophil Count 0.78 k/cumm (0.0-0.7); Absolute Lymphocyte Count 2.02 k/cumm (1.2-3.4); Absolute Neutrophil Count 5.77 k/cumm (1.2-6.7); Basophils % 0.9; Eosinophils % 8.2; HGB 14.2 g/dL (13.5-17.5); Immature Grans % 0.4; Lymphocytes % 21.3; Mean Corpuscular Volume 90.7 fL (80-95); Mean Platelet Volume 8.4 fL (8.0-11.0); Monocytes % 8.4; Neutrophils % 60.8; Platelet Count 353 x1000/uL (130-400); RBC 4.74 m/cumm (4.50-6.00); RBC Distribution Width 12.7 % (11.8-14.1)
[2019-03-16] MEDS: Albuterol/Ipratropium 3 ML UPD VIAL (00:51)
[2019-03-16] MEDS: Albuterol 2.5 MG/3 ML INH SOLN VIAL ×2 (00:55→01:16)
[2019-03-16 01:03] LABS: ALT 32 U/L (12-78); AST 19 U/L (15-37); Albumin 3.6 g/dL (3.4-5.0); Alkaline Phosphatase 73 U/L (46-116); Anion Gap 6.8 mmol/L (3-11); BUN 14 mg/dL (7-18); Bilirubin, Total 0.1 mg/dL (0.2-1.0); CO2 26.2 mmol/L (21.0-32.0); Calcium 8.8 mg/dL (8.5-10.1); Chloride 99 mmol/L (98-107); Glucose 131 mg/dL (70-100); NT-proBNP 49 pg/mL; Potassium 4.1 mmol/L (3.5-5.1); Sodium 132 mmol/L (136-145); Total Protein 7.8 g/dL (6.4-8.2)
[2019-03-16 01:04] LABS: Troponin I < 0.02 ng/mL (0.00-0.06)
--- NOTE | 2019-03-16 01:08 | NUR.NOTE ---
Nursing Note: patient coughing productively of thick white secretions, lung sounds-improved air movement, patient feels breathing is easier, daughter is with patient.
[2019-03-16] MEDS: Normal Saline 1,000 ML 500 ML IV (01:15)
[2019-03-16] MEDS: cefTRIAXone 2 GM/50 ML BAG IVPB (01:28)
[2019-03-16 01:29] LABS: HCO3 24 mmol/L (22-28); pCO2 49 mmHg (34-47); pH 7.29 (7.35-7.45); pO2 112 mmHg (83-108); sO2 98 % (94-98); tCO2 22 mmol/L (22-29)
[2019-03-16 01:30] LABS: FIO2L BiPAP L; Site Right Radial
[2019-03-16 01:31] LABS: FIO2 25 %
[2019-03-16] MEDS: DOXYCYCLINE 100 MG in Normal Saline 100 ML IVPB ×2 (01:57→14:28)
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
[2019-03-16] MEDS: FAMOTIDINE 20 MG/50 ML BAG 200 MG IVPB ×2 (03:06→14:00)
[2019-03-16] MEDS: Albuterol/Ipratropium 3 ML UPD VIAL UPD ×4 (04:07→23:49)
[2019-03-16] MEDS: Enoxaparin 40 MG/0.4 ML SYR SC (04:07)
[2019-03-16 07:04] LABS: Abs Immature Grans 0.03 k/cumm (0.0-0.09); Absolute Basophil Count 0.02 k/cumm (0.0-0.2); Absolute Eosinophil Count 0.01 k/cumm (0.0-0.7); Absolute Lymphocyte Count 0.46 k/cumm (1.2-3.4); Absolute Monocyte Count 0.05 k/cumm (0.11-0.7); Absolute Neutrophil Count 7.42 k/cumm (1.2-6.7); Basophils % 0.3; Eosinophils % 0.1; HCT 39.6 % (40.0-50.0); HGB 12.8 g/dL (13.5-17.5); Immature Grans % 0.4; Lymphocytes % 5.8; Mean Corp. HGB Concentration 32.3 g/dL (32.0-36.0); Mean Corpuscular Hemoglobin 29.4 pg (27.0-33.0); Mean Platelet Volume 8.4 fL (8.0-11.0); Monocytes % 0.6; Neutrophils % 92.8; Platelet Count 307 x1000/uL (130-400); RBC 4.35 m/cumm (4.50-6.00); RBC Distribution Width 12.7 % (11.8-14.1); White Blood Cell Count 7.99 k/cumm (4.4-10.8)
[2019-03-16 07:28] LABS: ALT 28 U/L (12-78); AST 19 U/L (15-37); Albumin 3.2 g/dL (3.4-5.0); Alkaline Phosphatase 68 U/L (46-116); Anion Gap 10.3 mmol/L (3-11); BUN 13 mg/dL (7-18); Bilirubin, Total 0.2 mg/dL (0.2-1.0); CO2 23.7 mmol/L (21.0-32.0); CREATININE 1.27 mg/dL (0.70-1.30); Calcium 8.2 mg/dL (8.5-10.1); Chloride 101 mmol/L (98-107); Estimated GFR 56.92 (mL/min/1.73m2); Glucose 156 mg/dL (70-100); Potassium 4.6 mmol/L (3.5-5.1); Sodium 135 mmol/L (136-145); TSH 0.72 uIU/mL (0.358-3.74); Total Protein 7.1 g/dL (6.4-8.2)
[2019-03-16 07:30] LABS: Troponin I < 0.02 ng/mL (0.00-0.06)
[2019-03-16 07:43] LABS: Procalcitonin < 0.1 ng/mL
[2019-03-16 08:09] LABS: BE -3.6 mmol/L (-3-3); HCO3 22 mmol/L (22-28); pCO2 38 mmHg (34-47); pH 7.36 (7.35-7.45); pO2 73 mmHg (83-108); sO2 95 % (94-98); tCO2 20 mmol/L (22-29)
[2019-03-16 08:10] LABS: FIO2 0.21 %; FIO2L Room Air L; Site Right Radial
[2019-03-16] MEDS: Aspirin E.C. 81 MG TABEC PO (08:10)
[2019-03-16] MEDS: Lisinopril 5 MG TAB PO (08:10)
[2019-03-16] MEDS: methylPREDNISolone SUCC 125 MG VIAL 80 MG IVP ×3 (08:10→23:49)
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
[2019-03-16] MEDS: Albuterol 2.5 MG/3 ML INH SOLN VIAL UPD (09:44)
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
[2019-03-16] MEDS: Normal Saline Flush 10 ML SYR IVP ×3 (14:02→23:50)
[2019-03-16] MEDS: Normal Saline 500 ML 30 ML IVPB (14:14)
--- NOTE | 2019-03-16 14:34 | NUR.NOTE ---
Nursing Note: Pt transferred from ICU TO ROOM 214. A&)x3. HR tachy 120. CC Opal Marcelino notified. LS diminished throughout, increased WOB noted @ rest. SOB w/exertion. HR reg. reports BM today. denies pain. IV in Right AC infiltrated, removed @ this time. Pt oriented to room. Set up w/hygiene supplies in BR.
[2019-03-17 00:04] VITALS: BP 119/76; PULSE 92; RESP 17; TEMP 36.7; O2SAT 93
[2019-03-17] MEDS: FAMOTIDINE 20 MG/50 ML BAG 200 MG IVPB (02:15)
[2019-03-17] MEDS: Normal Saline Flush 10 ML SYR IVP ×2 (02:15→07:36)
[2019-03-17] MEDS: DOXYCYCLINE 100 MG in Normal Saline 100 ML IVPB (02:35)
[2019-03-17] MEDS: Enoxaparin 40 MG/0.4 ML SYR SC (05:56)
[2019-03-17] MEDS: Albuterol/Ipratropium 3 ML UPD VIAL UPD ×2 (05:57→11:31)
[2019-03-17 06:27] VITALS: RESP 1; RESP 8
[2019-03-17 07:05] VITALS: BP 117/81; PULSE 97; RESP 18; TEMP 37.2; O2SAT 92
[2019-03-17] MEDS: methylPREDNISolone SUCC 125 MG VIAL 80 MG IVP (07:35)
[2019-03-17] MEDS: Lisinopril 5 MG TAB PO (07:36)
[2019-03-17] MEDS: Aspirin E.C. 81 MG TABEC PO (07:36)
[2019-03-17] MEDS: Docusate Sodium 100 MG CAP PO (10:23)
[2019-03-17] MEDS: Mometasone 220 MCG 14 DOSE INHALER 1 PUFF IH (11:00)
[2019-03-17 11:31] VITALS: PULSE 102; RESP 20; RESP 4; O2SAT 93
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
--- NOTE | 2019-03-17 12:46 | PDOC.CMDIS ---
- If Service Date Differs Date of service: 03/17/19 Time of Service: 12:46 LACE Index Scoring Tool - Questions: Length of Stay (in days): 1 Acuity (Admit via E.D.?): Yes Comorbidities: Chronic Pulmonary Disease E.D. Visits: 2 - Answers: Total Score: 8 Risk of Readmission: Low Risk Care Management Discharge Reason for Hospitalization: COPD Exacerbation Discharge Plan: Jimmy will be discharged home to his daughter's house without services this afternoon. He will follow up with his PCP and discharge plan of care. He also hopes to attend Pulmonary Rehab. Jimmy's daughter Luciana will transport him home via private automobile. Patient/Family Education Needs: Discharge plan, limitations, follow up plan of care and Ask Me Three.
== END 2019-03-17 12:52 | disposition home or self-care (01) | DRG 192 ==
LOC: ER 01:48 → ICU 02:02 → MS 03-17 09:54 → ICU 03-18 13:39 → MS 03-18 13:39
PROVIDERS: Admitting Provider Internal Medicine; Emergency Provider Student in an Organized Health Care Education/Training Program; PCP General Practice; Visit Provider Family Medicine
DX: J44.0 Chronic obstructive pulmonary disease with (acute) lower respiratory infection (principal); J20.9 Acute bronchitis, unspecified; J44.1 Chronic obstructive pulmonary disease with (acute) exacerbation; I10 Essential (primary) hypertension; K59.00 Constipation, unspecified; G47.33 Obstructive sleep apnea (adult) (pediatric); Z87.891 Personal history of nicotine dependence; Y26.XXXA Exposure to smoke, fire and flames, undetermined intent, initial encounter
CPT/HCPCS: 36415; 80053; 82805; 84145; 93005; 94640; 94644; 96360; 96365; 99223; 99232; 99239; 99285; J1650; 36600; 71045; 83880; 84443; 84484; 85025; 93010; 94660; J2930; J7613; J7620

== ENCOUNTER 2019-03-28 15:05 | Outpatient (RCR) | payer MEDICARE, BC, SELFPAY | END 2019-04-06 23:59 | disposition home or self-care (01) | LOC: PRC 15:05 | PROVIDERS: PCP General Practice; Visit Provider Family Medicine | DX: J44.9 Chronic obstructive pulmonary disease, unspecified (principal); Z51.89 Encounter for other specified aftercare ==

== ENCOUNTER 2019-06-02 07:00 | Outpatient (RCR) | payer MEDICARE, BC, SELFPAY | END 2019-06-07 23:59 | disposition home or self-care (01) | LOC: PRC 07:00 | PROVIDERS: PCP General Practice; Visit Provider Family Medicine | DX: J44.9 Chronic obstructive pulmonary disease, unspecified (principal); Z51.89 Encounter for other specified aftercare | CPT/HCPCS: G0424 ==

== ENCOUNTER 2019-06-23 15:29 | Emergency (ER) | payer MEDICARE, BC, SELFPAY ==
[2019-06-23] VITALS (39 sets, daily range): BP systolic 107–130; BP diastolic 70–95; PULSE 81–110; RESP 8–34; TEMP 36.6; O2SAT 91–98
--- NOTE | 2019-06-23 16:03 | DI.CT_ITS ---
EXAM: CT CHEST PE CTA CLINICAL HISTORY: Tachycardia, sob, lt pain, H/O PNEUMOTHORAX TECHNIQUE: CT angiography was performed with multi slice acquisition and multi planar and 3D reconst ruction. COMPARISON: No exams were available for comparison FINDINGS: CT angiography of the chest is performed with intravenous infusion of 100 cc of Omnipaque 350. Image s obtained through the upper abdomen show indeterminate low-attenuation hepatic lesions, likely cysts but other etiologies not excluded. Ultrasound recommended for further evaluation. Multiple small s plenic granulomata noted. Pancreas unremarkable. Adrenals and kidneys unremarkable. Thoracic aorta is of normal diameter and there is no evidence of dissection. There are numerous bila teral pulmonary emboli involving all pulmonary nodes predominantly and segmental vessels but also in the right upper lobe pulmonary artery. No central pulmonary embolus identified. There is flattening of the interventricular septum suggestive of early right heart strain. Marked pulmonary emphysematous changes bilaterally. No gross mediastinal or hilar adenopathy. Trac heobronchial tree appears intact. No pleural effusion. IMPRESSION: Widespread pulmonary embolic disease with large clot burden. Findings suggesting early right heart s train with flattening of the interventricular septum
--- NOTE | 2019-06-23 16:04 | ED.GENADUL_ITS ---
Discharge Plan Disposition Patient Disposition: [facility] Condition: Improving Discharge Details Chief Complaint: SOB Clinical Impression: Bilateral pulmonary embolism Primary Care Provider: Alber Garcia ED Provider: Fantasma De Santiago Home Meds and New Rx's Prescriptions: No Action pantoprazole [Protonix] 40 mg tablet,delayed release (DR/EC) 40 mg PO DAILY Qty: 30 RF: 12 albuterol sulfate [Ventolin HFA] 90 mcg/actuation HFA aerosol inhaler 2 puff IH Q6H PRNRF: 0 Anoro Ellipta 62.5-25 mcg/actuation blister with device 1 inh IH Q24H RF: 0 aspirin [Aspir-81] 81 MG tablet,delayed release (DR/EC) 81 mg PO DAILY RF: 0 lisinopril 2.5 mg tablet 5 mg PO DAILY RF: 0 ibuprofen 600 mg tablet 600 mg PO TID-QID PRN (Reason: pain) Qty: 60 RF: 3 albuterol sulfate 1.25 mg/3 mL Solution For Nebulization 1.25 mg inhalation PRN PRNRF: 0 polyethylene glycol 3350 17 gram Powder In Packet 17 g PO DAILY PRN PRN (Reason: Constipation) Qty: 1 RF: 2 Flovent HFA 220 mcg/actuation HFA aerosol inhaler 1 puff IH BID Qty: 1 RF: 3 Discharge Data Discharge Date/Time-TO BE ENTERED AT DEPARTURE: 06/23/19 20:22 Medical Decision Making 64-year-old male with known COPD presents with 1 day of worsening shortness of breath. He is mildly tachycardic upon presentation with diminished breath sounds throughout. Does have a history of pneumothorax and describes some aching left-sided discomfort. His vital signs are otherwise stable. His differential diagnosis would include ACS, PE, COPD exacerbation, pneumonitis. He has a history of blebs as well. IV placed, patient given parenteral steroids, inhaled DuoNeb, referred for CT scan of the chest. His EKG does reveal precordial T wave inversions that are new. There is no ST segment elevation. Labs reveal d-dimer of >7000 with slightly elevated troponin of 0.4. CBC shows white count 8.9, hematocrit 45, platelets 300. Sodium 140, potassium 4.2 BUN 17, creatinine 1.18. Unremarkable LFTs. CT scan of the chest with bilateral pulmonary emboli with evidence of right heart strain including engorgement of the right ventricle. Patient placed on heparin bolus and drip. Case discussed with on-call PE team at [facility]. Patient to be accepted by Dr. Portillo. ECG Data Attestation: I personally reviewed and interpreted this ECG (s) as follows: Interpretation: Sinus tachycardia with a rate of 107, the QRS is narrow there is nonspecific T wave changes present in the precordium. There is T wave inversions in leads V2, V3, V4. There is no ST segment elevation present HPI General Mode of arrival: ambulatory . Date/Time Provider Initiated Documentation: 06/23/19 15:37 . Limitations to Documentation: no limitations . Information obtained by: patient . History of Present Illness 64 year old M presents to the emergency department with the chief complaint of History COPD, history pneumothorax, shortness of breath primarily today, described as mo derate, Quality is described as constant, and is localized to the chest. Patient reports no radiation. Patient started experiencing this hour(s) and it has been constant. No relieving factors improve symptom(s), No exacerbating factors reported . Patient notes cough and other (Describes minimal left lower aching discomfort worse with coughing). Related Data Home Medications Medication Instructions Recorded Confirmed aspirin [Aspir-81] 81 mg PO DAILY tab-cap 06/15/16 06/23/19 ibuprofen 600 mg PO TID-QID PRN #60 tab 02/28/19 03/16/19 albuterol sulfate 90 mcg/actuation 2 puff IH Q6H PRN 03/06/19 06/23/19 aerosol inhaler lisinopril 2.5 mg tablet 5 mg PO DAILY tab-cap 03/06/19 06/23/19 pantoprazole 40 mg tablet,delayed 40 mg PO DAILY #30 tab 03/06/19 03/16/19 release umeclidinium 62.5 mcg-vilanterol 1 inh IH Q24H 03/06/19 03/16/19 25 mcg/actuation powdr for inhalation fluticasone propionate [Flovent 1 puff IH BID #1 inh 03/17/19 06/23/19 HFA] polyethylene glycol 3350 17 g PO DAILY PRN PRN #1 ea 03/17/19 albuterol sulfate 1.25 mg INHALATION PRN PRN 06/23/19 06/23/19 Previous Rx's Medication Instructions Recorded ibuprofen 600 mg PO TID-QID PRN #60 tab 02/28/19 pantoprazole 40 mg tablet,delayed 40 mg PO DAILY #30 tab 03/06/19 release fluticasone propionate [Flovent 1 puff IH BID #1 inh 03/17/19 HFA] polyethylene glycol 3350 17 g PO DAILY PRN PRN #1 ea 03/17/19 Allergies Allergy/AdvReac Type Severity Reaction Status Date / Time No Known Allergies Allergy Verified 06/23/19 15:37 General Stated Complaint: SOB JUANA: 2 Review of Systems Review of Systems Narrative: Not smoking. Production of clear sputum. Aching left-sided chest pain with coughing. No recent travel or lower extremity pain or swelling. 8 systems reviewed and otherwise negative. FOR[facility], LAT[facility] Medical History COPD (chronic obstructive pulmonary disease) (Chronic) COPD (chronic obstructive pulmonary disease) (Chronic) Emphysematous bleb of lung (Acute) repeat cxr shows no signs of recurrence of PTX does have spinner tender he follows up with. I did find an old CT chest and reviewed w/ him. Does show signif changes from COPD. signif blebs throughout entire lung. pt is not surgical candidate. cont pulm toilet no restrictions on activity at this time can use oil to remove tape residue. f/u w/ pulm to see if can find a better combo of inhalers to improve breathing HTN (hypertension) (Chronic) Ruptured emphysematous bleb (Acute) on left lung Spontaneous pneumothorax (Resolved) Surgical History Arthroplasty of knee Colonoscopy - MAC (07/07/16) Social History Smoking/Tobacco Use Status: Former Tobacco Use Pack-years: 51 Tobacco: How many years used: 51 Alcohol Intake: current Alcohol Intake frequency: a few times a week Alcohol type: hard liquor Drug use: Never Substance use type: does not use Household members: other Details: has a boarder to whom he rents a room Housing: house Do you feel safe at home: Yes Do you feel safe in your relationship?: Yes Additional Social history: 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 Pleasant, well groomed, interactive. HEAD: Normocephalic, atraumatic ENT: Mucous membranes moist, oropharynx unremarkable, External ear exam unremarkable EYES: PERRL, EOMI NECK: Full ROM, no ELBA, no menigismus CHEST/RESP: Nontender, diminished bilaterally with scant end expiratory wheeze present CARDIOVASCULAR: Regular, tachycardic, no murmur, rub demetria. 2+ Rad pulse bilateral ABDOMEN: Soft, nontender, no mass. +Bowel sounds EXT: Full ROM, no edema, no rash Neuro: Grossly normal neurologic exam, conversant, interactive. Psych: Speech fluent, thoughts congruent, affect normal Course Vital Signs Vital signs: Vital Signs Temperature 36.6 C 06/23/19 15:34 Pulse 110 H 06/23/19 15:34 Respiratory Rate 22 06/23/19 15:34 Blood Pressure 115/78 06/23/19 15:34 Pulse Oximetry 95 06/23/19 15:34 Temperature 36.6 C 06/23/19 15:34 Temperature Source Temporal Artery Scan 06/23/19 15:34 Pulse 110 H 06/23/19 15:34 Respiratory Rate 22 06/23/19 15:34 Respiratory Effort 06/23/19 15:57 Respiratory Depth Normal 06/23/19 15:57 Blood Pressure 115/78 06/23/19 15:34 Blood Pressure Position Sitting 06/23/19 15:34 Pulse Oximetry 95 06/23/19 15:34 Oxygen Delivery Method Room Air 06/23/19 15:34 Oxygen Flow Rate 0 06/23/19 15:34 Pain Level 0 06/23/19 15:34
[2019-06-23 16:18] LABS: Abs Immature Grans 0.02 k/cumm (0.0-0.09); Absolute Basophil Count 0.06 k/cumm (0.0-0.2); Absolute Eosinophil Count 0.13 k/cumm (0.0-0.7); Absolute Lymphocyte Count 1.41 k/cumm (1.2-3.4); Absolute Monocyte Count 0.87 k/cumm (0.11-0.7); Absolute Neutrophil Count 6.43 k/cumm (1.2-6.7); Basophils % 0.7; Eosinophils % 1.5; HGB 14.7 g/dL (13.5-17.5); Immature Grans % 0.2; Lymphocytes % 15.8; Mean Corp. HGB Concentration 32.7 g/dL (32.0-36.0); Mean Corpuscular Hemoglobin 29.1 pg (27.0-33.0); Mean Corpuscular Volume 89.1 fL (80-95); Mean Platelet Volume 8.9 fL (8.0-11.0); Monocytes % 9.8; Platelet Count 300 x1000/uL (130-400); RBC 5.05 m/cumm (4.50-6.00); RBC Distribution Width 13.1 % (11.8-14.1); White Blood Cell Count 8.92 k/cumm (4.4-10.8)
[2019-06-23] MEDS: Albuterol/Ipratropium 3 ML UPD VIAL UPD (16:20)
[2019-06-23] MEDS: methylPREDNISolone SUCC 125 MG VIAL IVP (16:22)
[2019-06-23 16:36] LABS: ALT 32 U/L (16-63); AST 21 U/L (15-37); Albumin 3.7 g/dL (3.4-5.0); Alkaline Phosphatase 65 U/L (46-116); Anion Gap 10.9 mmol/L (3-11); BUN 17 mg/dL (7-18); Bilirubin, Total 0.3 mg/dL (0.2-1.0); CO2 27.1 mmol/L (21.0-32.0); CREATININE 1.18 mg/dL (0.70-1.30); Calcium 9.1 mg/dL (8.5-10.1); Chloride 102 mmol/L (98-107); Glucose 122 mg/dL (70-100); Magnesium 2.3 mg/dL (1.8-2.4); Potassium 4.2 mmol/L (3.5-5.1); Sodium 140 mmol/L (136-145); Total Protein 8.3 g/dL (6.4-8.2)
[2019-06-23 16:37] LABS: Troponin I 0.44 ng/mL (0.00-0.06)
[2019-06-23 16:45] LABS: D-Dimer 7060 ng/mlFEU (<500)
[2019-06-23] MEDS: Omnipaque 350 MG/ML 100 ML BTL IJ (17:19)
--- NOTE | 2019-06-23 17:54 | DI.VRAD_ITS ---
EXAM: CT Angiography Chest With Contrast EXAM DATE/TIME: 06/23/2019 4:04 PM CLINICAL HISTORY: 64 years old, male; Left-sided chest pain; Patient HX: Tachycardia, SOB, L pain; Additional info: HX of ptx TECHNIQUE: Imaging protocol: Computed tomographic angiography of the chest with intravenous contrast. 3D rendering: MIP reconstructed images were created and reviewed. COMPARISON: CT CHEST FOR PULMONARY EMBOLUS 11/28/2017 6:16 PM FINDINGS: Pulmonary arteries: Bilateral extensive pulmonary emboli are appreciated. For example, extensive emboli are seen throughout the proximal and distal segments of the right upper lobe pulmonary arteries, right interlobar artery, right lower lobe proximal and distal segmental arteries, left upper lobe proximal and distal segmental arteries, and left lower lobe proximal and distal segmental arteries. Aorta: Mild ectasia of the mid descending thoracic aorta measuring up to 3.7 cm in greatest diameter. No acute aortic pathology. Lungs: Diffuse centrilobular emphysema is appreciated. Mild scarring and atelectasis is also noted throughout the lungs. There is chronic reticulation noted to the pulmonary periphery, compatible with chronic pulmonary changes. No significant interstitial or airspace disease is appreciated. Pleural space: Unremarkable. No pneumothorax. No pleural effusion. Heart: The heart is not enlarged. There is flattening of the interventricular septum, highly concerning for early changes of right heart strain. No pericardial thickening or effusion. There is mild atherosclerotic calcification of the coronary arteries. Liver: Scattered hypodense liver lesions are nonspecific, however stable and most likely benign her presenting cysts. Spleen: The spleen demonstrates punctate calcifications, consistent with remote granulomatous organism exposure. Lymph nodes: Unremarkable. No enlarged lymph nodes. Bones/joints: No acute abnormality or aggressive osseous lesion. Soft tissues: Unremarkable. Other findings: No acute findings in the visualized upper abdominal organs otherwise appreciated. IMPRESSION: 1. Bilateral diffuse/multifocal pulmonary emboli with high concern for early right heart strain. 2. Chronic sinus incidental findings as detailed above. THIS REPORT CONTAINS FINDINGS THAT MAY BE CRITICAL TO PATIENT CARE. The findings were verbally communicated via telephone conference with ENEDINA LANDAVERDE at 5:53 PM EDT on 06/23/2019. The findings were acknowledged and understood. Dictated and Authenticated by: Stanislav Timmons MD. Ordering:MACARENA Meek MD
[2019-06-23 20:03] LABS: Troponin I 0.38 ng/mL (0.00-0.06)
== END 2019-06-23 20:22 | disposition short-term general hospital (02) ==
PROVIDERS: Emergency Provider Emergency Medicine; PCP General Practice
DX: I26.09 Other pulmonary embolism with acute cor pulmonale (principal); R07.9 Chest pain, unspecified; I10 Essential (primary) hypertension; J44.9 Chronic obstructive pulmonary disease, unspecified; Z87.891 Personal history of nicotine dependence
CPT/HCPCS: 36415; 71275; 80053; 93005; 94640; 96365; 96366; 96375; 96376; 99285; 83735; 84484; 85025; 85379; 93010; J2930; J3490; J7620

== ENCOUNTER 2019-07-04 14:00 | Outpatient (RCR) | payer MEDICARE, BC, SELFPAY | END 2019-07-07 23:59 | disposition home or self-care (01) | LOC: PRC 14:00 | PROVIDERS: PCP General Practice; Visit Provider Family Medicine | DX: J44.9 Chronic obstructive pulmonary disease, unspecified (principal); Z51.89 Encounter for other specified aftercare | CPT/HCPCS: G0424 ==

== ENCOUNTER → 2019-07-30 10:45 | Outpatient (BNVA) | payer MEDICARE, BC, SELFPAY | PROVIDERS: PCP General Practice; Referring Provider General Practice; Visit Provider Orthopaedic Surgery | DX: M72.0 Palmar fascial fibromatosis [Dupuytren] (principal) | CPT/HCPCS: 99201; 99213 ==

== ENCOUNTER 2019-08-06 14:00 | Outpatient (RCR) | payer MEDICARE, BC, SELFPAY | END 2019-08-07 23:59 | disposition home or self-care (01) | LOC: PRC 14:00 | PROVIDERS: PCP General Practice; Visit Provider Family Medicine | DX: J44.9 Chronic obstructive pulmonary disease, unspecified (principal); Z51.89 Encounter for other specified aftercare | CPT/HCPCS: G0424 ==

== ENCOUNTER 2019-09-01 14:00 | Outpatient (RCR) | payer MEDICARE, BC, SELFPAY | END 2019-09-06 23:59 | disposition home or self-care (01) | LOC: PRC 14:00 | PROVIDERS: PCP General Practice; Visit Provider Family Medicine | DX: J44.9 Chronic obstructive pulmonary disease, unspecified (principal); Z51.89 Encounter for other specified aftercare | CPT/HCPCS: G0424 ==

== ENCOUNTER 2019-09-22 14:00 | Outpatient (RCR) | payer MEDICARE, BC, SELFPAY | END 2019-10-07 23:59 | disposition home or self-care (01) | LOC: PRC 14:00 | PROVIDERS: PCP General Practice; Visit Provider Family Medicine | DX: J44.9 Chronic obstructive pulmonary disease, unspecified (principal); Z51.89 Encounter for other specified aftercare | CPT/HCPCS: G0424 ==

== ENCOUNTER 2019-09-23 09:40 | Outpatient (REF) | payer MEDICARE, BC, SELFPAY ==
[2019-09-23 12:10] LABS: HCT 44.1 % (40.0-50.0); HGB 13.8 g/dL (13.5-17.5)
[2019-09-23 12:30] LABS: Anion Gap 9.9 mmol/L (3-11); BUN 16 mg/dL (7-18); CO2 28.1 mmol/L (21.0-32.0); CREATININE 1.23 mg/dL (0.70-1.30); Calcium 9.4 mg/dL (8.5-10.1); Chloride 102 mmol/L (98-107); Estimated GFR 58.87 (mL/min/1.73m2); Glucose 93 mg/dL (74-106); Potassium 4.9 mmol/L (3.5-5.1); Sodium 140 mmol/L (136-145)
== END 2019-09-23 10:00 ==
LOC: NCHCN 09:40
PROVIDERS: PCP General Practice; Visit Provider Specialist/Technologist Athletic Trainer
DX: I10 Essential (primary) hypertension (principal); E78.5 Hyperlipidemia, unspecified; R35.0 Frequency of micturition
CPT/HCPCS: 80048; 87077; 85014; 85018; 87086; 87186

== ENCOUNTER 2020-04-15 00:20 | Outpatient (CLI) | payer MEDICARE, BC, SELFPAY ==
--- NOTE | 2020-04-15 | DI.CT_ITS ---
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 COMPARISON: CT CT CHEST PE CTA from 06/23/2019 FINDINGS: Thyroid: Normal. Heart: Normal size. Coronary artery calcifications. Aorta: Normal diameter. Mild calcification. Lymph nodes: No adenopathy. Lungs: Moderate underlying emphysematous changes. Chronic interstitial changes in the left lower lobe and lingula. No infiltrate or effusion. There is now a mass in the right upper lobe above the major fissure. It is located around vessels and bronchi but no obstruction is seen. It appears new since t he previous exam. It measures 1.7 x 1.4 by 1.7 cm. Bones: No suspicious lesions. Degenerative changes in the spine. Upper abdomen: Stable liver cysts. S mall hiatal hernia. IMPRESSION: 1.7 centimeter mass in the right upper lobe, new since the previous CT. Findings are suspicious for l long carcinoma. No findings to suggest metastatic disease. RADIATION DOSE DELIVERED: 733.02mGy.cm Total DLP DATA REPOSITORY: All CT scans at this facility are submitted to the National Radiology Data Registry (NRDR) Dose Index Registry (DIR) with the [employer] (ACR). RADIATION OPTIMIZATION: All CT scans at this facility use at least one of these dose optimization te chniques: automated exposure control; mA and/or kV adjustment per patient size (includes targeted exa ms where dose is matched to clinical indication); or iterative reconstruction.
[2020-04-15] MEDS: Omnipaque 350 MG/ML 100 ML BTL 85 ML IJ (14:34)
== END 2020-04-15 00:40 ==
PROVIDERS: PCP Family Medicine; Visit Provider Family Medicine
DX: R04.2 Hemoptysis (principal); F17.210 Nicotine dependence, cigarettes, uncomplicated; R91.8 Other nonspecific abnormal finding of lung field; J43.8 Other emphysema
CPT/HCPCS: 71260; 82565; J3490

== ENCOUNTER → 2020-04-28 11:09 | Outpatient (BNVA) | payer MEDICARE, BC, SELFPAY | PROVIDERS: PCP Family Medicine; Referring Provider General Practice; Visit Provider Orthopaedic Surgery | DX: M65.30 Trigger finger, unspecified finger (principal); M72.0 Palmar fascial fibromatosis [Dupuytren]; M72.4 Pseudosarcomatous fibromatosis | CPT/HCPCS: 99213 ==

== ENCOUNTER 2020-05-07 07:21 | Outpatient (CLI) | payer MEDICARE, BC, SELFPAY ==
[2020-05-09 00:16] LABS: COVID-19 RT-PCR Result NEGATIVE (Negative)
== END 2020-05-07 07:41 ==
PROVIDERS: PCP Family Medicine; Visit Provider Orthopaedic Surgery
DX: M72.4 Pseudosarcomatous fibromatosis (principal)
CPT/HCPCS: U0003

== ENCOUNTER 2020-05-20 08:48 | Outpatient (REF) | payer MEDICARE, BC, SELFPAY ==
[2020-05-20 21:08] LABS: ALT 28 U/L (16-63); AST 24 U/L (15-37); Albumin 3.6 g/dL (3.4-5.0); Alkaline Phosphatase 45 U/L (46-116); Anion Gap 11.2 mmol/L (3-11); BUN 15 mg/dL (7-18); Bilirubin, Total 0.4 mg/dL (0.2-1.0); CO2 22.8 mmol/L (21.0-32.0); CREATININE 1.08 mg/dL (0.70-1.30); Calcium 8.4 mg/dL (8.5-10.1); Calculated LDL 122 mg/dL (<100); Chloride 104 mmol/L (98-107); Cholesterol 179 mg/dL (<200); Glucose 100 mg/dL (74-106); HDL Cholesterol 41 mg/dL (40-60); Potassium 4.3 mmol/L (3.5-5.1); Sodium 138 mmol/L (136-145); Total Protein 6.6 g/dL (6.4-8.2); Triglyceride 83 mg/dL (<150)
[2020-05-24 09:07] LABS: PSA, Screening 4.8 ng/mL (0.0-4.5)
== END 2020-05-20 09:08 ==
LOC: NCHCN 08:48
PROVIDERS: PCP Family Medicine; Visit Provider Family Medicine
DX: I10 Essential (primary) hypertension (principal); E78.5 Hyperlipidemia, unspecified; Z12.5 Encounter for screening for malignant neoplasm of prostate
CPT/HCPCS: 80053; 80061; 84153; 85027

== ENCOUNTER 2020-05-21 08:50 | Outpatient (CLI) | payer MEDICARE, BC, SELFPAY ==
[2020-05-22 17:53] LABS: COVID-19 RT-PCR Result NEGATIVE (Negative)
== END 2020-05-21 09:10 ==
PROVIDERS: PCP Family Medicine; Visit Provider Orthopaedic Surgery
DX: M72.0 Palmar fascial fibromatosis [Dupuytren] (principal); M72.4 Pseudosarcomatous fibromatosis
CPT/HCPCS: U0003

== ENCOUNTER 2020-05-24 08:40 | Day surgery (SDC) | payer MEDICARE, BC, SELFPAY ==
[2020-05-24 08:50] VITALS: BP 121/85; PULSE 76; RESP 16; TEMP 36.5; O2SAT 96
[2020-05-24] MEDS: Lactated Ringers 1,000 ML 80 ML IV (10:52)
--- NOTE | 2020-05-24 14:28 | W.PM.DSUDISC ---
Discharge Plan Disposition Patient Disposition: HOME Condition: Good Discharge Details Attending Provider: Fantasma Jason Primary Care Provider: Susannah Malhotra Home Meds and New Rx's Prescriptions: New hydrocodone-acetaminophen 5-325 mg tablet 1 tab PO Q6H PRN (Reason: pain) Qty: 10 RF: 0 Continued albuterol sulfate [Ventolin HFA] 90 mcg/actuation HFA aerosol inhaler 2 puff IH Q6H PRNRF: 0 Anoro Ellipta 62.5-25 mcg/actuation blister with device 1 inh IH Q24H RF: 0 Eliquis 5 mg tablet 5 mg PO BID RF: 0 aspirin [Aspir-81] 81 MG tablet,delayed release (DR/EC) 81 mg PO DAILY RF: 0 lisinopril 2.5 mg tablet 5 mg PO DAILY RF: 0 ibuprofen 600 mg tablet 600 mg PO TID-QID PRN (Reason: pain) Qty: 60 RF: 3 albuterol sulfate 1.25 mg/3 mL Solution For Nebulization 1.25 mg inhalation PRN PRNRF: 0 polyethylene glycol 3350 17 gram Powder In Packet 17 g PO DAILY PRN PRN (Reason: Constipation) Qty: 1 RF: 2 Flovent HFA 220 mcg/actuation HFA aerosol inhaler 1 puff IH BID Qty: 1 RF: 3 Discharge Instructions Additional Instructions: Try to elevate R hand above heart level as much as possible for next 48 hours. You may resume Eliquis tomorrow. Keep dressings AND splint dry and in place until return. Cover splint and dressings with plastic bag sealed with large rubber band below elbow to shower. Follow up with in 2 weeks. Wiggle fingers R hand 10 times/hour, when awake, to decrease swelling. Take ibuprofen or tylenol for mild pain. Take hydrocodone for breakthru pain, if needed. Referrals: Fantasma Jason MD [ [facility] STAFF PHYSICIAN] - (f/u in 2 weeks.) Equipment/Supplies: Splint Activity:: Activity as Tolerated Remove Dressings/Wound Care:: Do Not Remove Shower/Bathe:: Cover Diet:: As Tolerated Discharge Orders Discharge Orders: Discharge Order (Routine); Ordered 05/24/20 Ordered By: Fantasma Jason DS: Diagnosis Discharge Diagnosis (1) Dupuytren's contracture of right hand: Status: Acute
[2020-05-24] MEDS: oxyCODONE-CR 10 MG TABCR PO (15:18)
--- NOTE | 2020-05-24 15:22 | W.PM.OP ---
Date of service: 05/24/20 Time of Service: 13:28 Operative Note Operative Note DATE OF PROCEDURE: 05/24/20 PRE-OP DIAGNOSIS: Dupuytren's contracture right hand POST-OP DIAGNOSIS: same PROCEDURE: Partial palmar fasciectomy extending across the MP joint of the right little finger. Application of short arm splint. SURGEON: Fantasma Jason STATION INSPECTOR: Diana Mackey ANESTHESIA: regional PATHOLOGY: none sent COMPLICATIONS: None Patient was transported to: same day Patient's condition: stable Indications: This is a 65-year-old white male who has noticed a gradual contracture of his right little finger over the last 4 months. 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 Once he developed a contracture of the MP joint he had great difficulty using his right hand because his little finger kept getting in the way. Partial palmar fasciectomy was recommended to correct the flexion contracture of the MP joint and provide better active extension of his little finger. I thought he could get complete extension back at the MP joint. I felt that I could get improvement in extension at the PIP joint with manipulation. I did not feel I could correct the hyperextension of the DIP joint. Mr. Savage felt that if I could get his extension back to where he was 4 months ago he would be satisfied. I also felt her to make it much more difficult to correct if he developed a further flexion contracture of the MP joint. Risk and complication procedure explained patient detail preop. Findings: I was able to correct the flexion contracture of the MP joint of the right little finger completely with a partial palmar fasciectomy. I was able to improve the extension of the PIP joint with manipulation. But the joint was very contracted and I could not to get the last 20 degrees of extension back. The DIP joint was fixed in place in hyperextension and I could not free it up or move it at all. Procedure Description: Patient was taken the operating room on 05/24/2020. Space upon operative table. IV regional anesthetic was administered to the right upper extremity. The right hand wrist and forearm were prepped and draped free in the usual sterile fashion. The aluminum hand and finger retractor was then applied to the right hand. I outlined a Adina type of zigzag incision beginning at the middle flexion crease of the right little finger and extending proximally to the distal edge of the volar carpal ligament sharp dissection was used to free up the skin from the underlying diseased palmar fascia. During dissection a couple of minor perforations of the skin occurred. I then incised the palmar fascia at the distal edge of all carpal ligament and carried dissection from proximal to distal. Preserved and protected the digital nerves and vessels on either side of the little finger. The disease fascia was excised up to the PIP joint. The flexor sheath was preserved. I did incised the proximal wm of the flexor sheath. At this point it was noted that the flexion contracture of the MP joint of the little finger was completely corrected. The PIP joint still has a flexion contracture of some 50 degrees. I manipulated the joint and was able to get extension passively up to -20 degrees. I attempted to manipulate the DIP joint but it was fixed in hyperextension and could not be moved. Wound was irrigated with saline solution. The wound margins were infiltrated with 0.5% Marcaine with epinephrine solution. I performed digital nerve blocks to the right little and ring fingers at the level of the distal volar carpal ligament. The skin edges were loosely approximated with interrupted 4 nylon sutures. Skin perforations during dissection were not close to allow blood to drain. Incision was dressed with Xeroform gauze. Fluff gauze 4 x 4's were placed in the palm and then placed between the fingers. This was wrapped with a 4 inch Kerlix bandage. I then applied a volar fiberglass splint with a 4 inch Greg bandage. The splint was extended up to the DIP joint of the little finger to maintain the finger in as much extension as possible. Patient's IV regional anesthesia was reversed without complications. He was discharged to day surgery unit in good condition. He was discharged home from day surgery unit when fully recovered from his IV regional anesthesia. He is given instructions to try to elevate his right hand above heart level as much as possible over the next 48 hours. He is to keep his dressings and splint dry and intact until he follows up with Dr. Jason on 06/02/2020. He is encouraged to wiggle his fingers 10 times an hour while awake to prevent swelling. He can cover the splint and dressings with a plastic bag sealed with a large rubber band below the elbow he will take Tylenol or ibuprofen for mild pain. He is given a prescription for hydrocodone with APAP 02/07/2025 1 tablet every 6 hours as needed for breakthrough pain. He is instructed to restart his Eliquis tomorrow.
[2020-05-24 15:29] VITALS: BP 98/74; PULSE 74; RESP 16; TEMP 36.2; O2SAT 94
== END 2020-05-24 16:20 | disposition home or self-care (01) ==
PROVIDERS: PCP Family Medicine; Visit Provider Orthopaedic Surgery
PROC: (CPT 26123; principal; 2020-05-24 10:45)
DX: M72.0 Palmar fascial fibromatosis [Dupuytren] (principal)
CPT/HCPCS: 26123; J0690; J2250

== ENCOUNTER → 2020-06-01 11:28 | Outpatient (BNVA) | payer MEDICARE, BC, SELFPAY | PROVIDERS: PCP Family Medicine; Referring Provider Family Medicine; Visit Provider Orthopaedic Surgery | DX: Z47.89 Encounter for other orthopedic aftercare (principal); M72.0 Palmar fascial fibromatosis [Dupuytren]; J44.9 Chronic obstructive pulmonary disease, unspecified; I10 Essential (primary) hypertension; Z87.891 Personal history of nicotine dependence | CPT/HCPCS: 29125 ==

== ENCOUNTER → 2020-06-09 10:06 | Outpatient (BNVA) | payer MEDICARE, BC, SELFPAY | PROVIDERS: PCP Family Medicine; Referring Provider Family Medicine; Visit Provider Orthopaedic Surgery | DX: Z47.89 Encounter for other orthopedic aftercare (principal); M72.0 Palmar fascial fibromatosis [Dupuytren]; J44.9 Chronic obstructive pulmonary disease, unspecified; I10 Essential (primary) hypertension ==

== ENCOUNTER → 2020-06-23 10:01 | Outpatient (BNVA) | payer MEDICARE, BC, SELFPAY | PROVIDERS: PCP Family Medicine; Referring Provider Family Medicine; Visit Provider Orthopaedic Surgery | DX: Z47.89 Encounter for other orthopedic aftercare (principal); M72.0 Palmar fascial fibromatosis [Dupuytren]; J44.9 Chronic obstructive pulmonary disease, unspecified; I10 Essential (primary) hypertension ==

== ENCOUNTER 2020-08-11 01:15 | Outpatient (CLI) | payer MEDICARE, BC, SELFPAY ==
--- NOTE | 2020-08-11 | DI.US_ITS ---
EXAM: US ABDOMEN CLINICAL HISTORY: GB DISEASE, K82.9 TECHNIQUE: Ultrasound abdomen performed using standard protocol. COMPARISON: US ABDOMEN ULTRASOUND (P) from 01/17/[address] CHEST PE CTA from 06/23/2019 FINDINGS: ABDOMINAL AORTA AND IVC: Visualized portions normal caliber. PANCREAS: Normal where visualized. LIVER: Diffuse increased echogenicity consistent with fatty infiltration. Hepatopedal flow in the Po rtal Vein. 1.5 x 2 x 1.3 cm simple cyst. The liver measures 14.3 cm in length. GALLBLADDER: No evidence of cholelithiasis. No evidence of wall thickening. No pericholecystic fluid identified. BILIARY SYSTEM: Common bile duct measures < 7 mm. No intrahepatic biliary ductal dilation. DOWNING'S SIGN: Negative. KIDNEYS: Kidneys are symmetric in size. No evidence of renal calculi. No evidence of hydronephrosis. No renal mass or cyst identified. SPLEEN: Not enlarged. Calcified granuloma are again seen. ASCITES: None seen. IMPRESSION: 1. No evidence of cholelithiasis or biliary ductal dilatation. 2. Hepatic steatosis. DATA REPOSITORY:
== END 2020-08-11 01:35 ==
PROVIDERS: PCP Family Medicine; Visit Provider Family Medicine
DX: K76.0 Fatty (change of) liver, not elsewhere classified (principal); K82.8 Other specified diseases of gallbladder
CPT/HCPCS: 76700

== ENCOUNTER 2020-10-03 04:16 | Inpatient (IN) | payer MEDICARE, BC, SELFPAY ==
[2020-10-03] VITALS (28 sets, daily range): BP systolic 98–159; BP diastolic 60–99; PULSE 85–134; RESP 16–30; TEMP 36–37.7; O2SAT 91–100
--- NOTE | 2020-10-03 04:15 | DI.RAD_ITS ---
EXAM: XR PORTABLE CHEST AP CLINICAL HISTORY: sob, concern for pneumothorax, right? TECHNIQUE: 2D digital imaging was performed. COMPARISON: CR XR PORTABLE CHEST AP from 03/16/[address] CHEST W from 04/15/[address] CHEST W from 04/15/2020 FINDINGS: Heart size is normal. The aorta is mildly tortuous. There are increased interstitial markings bilat erally. Mild superimposed infiltrates are not excluded. No gross consolidation or effusion is seen. Degenerative changes are noted in the spine and shoulders. No pneumothorax is seen. IMPRESSION: Chronic interstitial changes with question of mild bilateral superimposed infiltrates. DATA REPOSITORY: RADIATION DOSE DELIVERED:
--- NOTE | 2020-10-03 04:15 | RT.EKG_ITS ---
APPROVED REPORT Exam: Resting ECG Patient Location: E HR:124 bpm ECG Measurements Heart Rate 124 AXIS ME 167 P 86 QRSd 89 QRS 90 QT 289 T 32 QTc 414 Conclusion Sinus tachycardia...rate> 99 Atrial premature complex...SV complex w/ short R-R interval Nonspecific repol abnormality, lateral leads...ST dep, T neg, I aVL V5 V6 Physician: Rate 124, sinus tachycardia, intervals normal, no significant ST elevations or depression, no large Q waves. No evidence of STEMI.
--- NOTE | 2020-10-03 04:28 | W.ED.GENAD ---
Discharge Plan Disposition Patient Disposition: [facility] INPATIENT Condition: Improving Discharge Details Chief Complaint: SOB Clinical Impression: COPD exacerbation, Pneumonia, Breath shortness Primary Care Provider: Susannah Malhotra ED Provider: Ranulfo Ly Home Meds and New Rx's Prescriptions: No Action albuterol sulfate [Ventolin HFA] 90 mcg/actuation HFA aerosol inhaler 2 puff IH Q6H PRNRF: 0 Anoro Ellipta 62.5-25 mcg/actuation blister with device 1 inh IH Q24H RF: 0 Eliquis 5 mg tablet 5 mg PO BID RF: 0 aspirin [Aspir-81] 81 MG tablet,delayed release (DR/EC) 81 mg PO DAILY RF: 0 lisinopril 2.5 mg tablet 5 mg PO DAILY RF: 0 ibuprofen 600 mg tablet 600 mg PO TID-QID PRN (Reason: pain) Qty: 60 RF: 3 albuterol sulfate 1.25 mg/3 mL Solution For Nebulization 1.25 mg inhalation PRN PRNRF: 0 polyethylene glycol 3350 17 gram Powder In Packet 17 g PO DAILY PRN PRN (Reason: Constipation) Qty: 1 RF: 2 Flovent HFA 220 mcg/actuation HFA aerosol inhaler 1 puff IH BID Qty: 1 RF: 3 hydrocodone-acetaminophen 5-325 mg tablet 1 tab PO Q6H PRN (Reason: pain) Qty: 10 RF: 0 Medical Decision Making 65-year-old male with a past medical history of left-sided pneumothorax, bilateral pulmonary emboli on Eliquis, previous COPD, presents today for evaluation of shortness of breath. Patient states 2 hours prior to arrival in the woke from sleep and was notably short of breath. He states he feels like he cannot get a deep breath at all. He denies any chest pain, he denies any history of cardiac disease. He states the pain feels similar to when he had his previous pneumothorax. He denies any falls traumas or changes in habits. He has not smoked since 2018. No other complaints at this time. No other modifying factors. Physical exam demonstrates diminished breath sounds throughout, bedside ultrasound shows decreased lung movement on the right in comparison to the left however he has a notable history of blebs. Portable chest x-ray was ordered immediately, and I cannot see any evidence of pneumothorax on that. Pending final read. Patient's does appear febrile, oxygenation at 91% on room air. Differential is broad but includes pneumonia, Covid, COPD exacerbation, or return of his pulmonary emboli which I feel less likely. We will give supplemental oxygen, breathing treatments, magnesium for this acute component, Solu-Medrol, and CTA, monitor closely and reassess. 7:24 AM On reassessment the patient is feeling much better, oxygenation has improved to the mid 90s, work of breathing is significantly improved, he is no longer short of breath, heart rates come down to 113. Venous blood gas is notably benign, no evidence of significant retention or acid-base abnormality. Renal function good. Troponin normal, EKG shows no signs of STEMI. Urine negative for evidence of infection, rapid Covid and flu are both negative. CT angiogram demonstrated. There is no evidence of pulmonary embolism, there is severe emphysema with superimposed groundglass densities, concerning for infectious/inflammatory also of concern for COVID-19 picture. At this time will treat for bacterial source with vancomycin, Zosyn and doxycycline. He already got Solu-Medrol. I contacted his daughter as well and discussed the case with the patient as well, they agree with the plan, patient would benefit from admission at this time. His notable improved stability compared to his initial presentation, patient appears stable at this time for admission to [facility] with telemetry. Contacted the hospitalist Dr. Rubio, he agrees with the assessment and plan. I will place bridging orders. I have extensively reviewed the treatment plan with the patient. I have addressed all patient concerns at this time. I have also discussed the plan with the admitting physician and they agree with the current assessment and plan and have agreed to assume responsibility for the patient. All parties demonstrate verbal understanding and agreement with our assessment and plan at this time. EKG 4: 25 Rate 124, sinus tachycardia, intervals normal, no significant ST elevations or depression, no large Q waves. No evidence of STEMI. FINDINGS: Lungs: Minimal nonspecific bilateral interstitial prominence , possibly chronic in nature with acute process not excluded. Pleural space: Unremarkable. No pleural effusion. No pneumothorax. Heart/Mediastinum: Unremarkable. No cardiomegaly. Bones/joints: Unremarkable. IMPRESSION: Minimal nonspecific bilateral interstitial prominence , possibly chronic in nature with acute process not excluded. Thank you for allowing us to participate in the care of your patient. Dictated and Authenticated by: Pablo Munson MD 10/03/2020 4:53 AM Eastern Time ([place] & [place]) FINDINGS: Pulmonary arteries: No pulmonary emboli. Aorta: No aortic aneurysm. No aortic dissection. Lungs: Moderate to severe emphysema with superimposed mild reticular/ground-glass densities bilaterally and mild subsegmental atelectasis Pleural space: No pneumothorax. No pleural effusion. Heart: No cardiomegaly. Coronary calcifications No pericardial effusion. Lymph nodes: Unremarkable. No enlarged lymph nodes. Bones/joints: Unremarkable. No acute fracture. Soft tissues: Unremarkable. Question mild esophageal thickening Fatty infiltration of the liver and simple cysts noted IMPRESSION: No pulmonary emboli observed Moderate to severe emphysema and superimposed mild reticular/ground-glass densities which may be infectious/inflammatory. Correlate for COVID-19 as clinically indicated Coronary artery disease Question mild esophagitis Thank you for allowing us to participate in the care of your patient. Dictated and Authenticated by: Gen Mclean MD 10/03/2020 6:47 AM Eastern Time ([place] & [place]) HPI General Date/Time Provider Initiated Documentation: 10/03/20 04:18. HPI Narrative: 65-year-old male with a past medical history of left-sided pneumothorax, bilateral pulmonary emboli on Eliquis, previous COPD, presents today for evaluation of shortness of breath. Patient states 2 hours prior to arrival in the woke from sleep and was notably short of breath. He states he feels like he cannot get a deep breath at all. He denies any chest pain, he denies any history of cardiac disease. He states the pain feels similar to when he had his previous pneumothorax. He denies any falls traumas or changes in habits. He has not smoked since 2018. No other complaints at this time. No other modifying factors. Related Data Home Medications Medication Instructions Recorded Confirmed aspirin [Aspir-81] 81 mg PO DAILY tab-cap 06/15/16 10/03/20 ibuprofen 600 mg PO TID-QID PRN #60 tab 02/28/19 10/03/20 albuterol sulfate 90 mcg/actuation 2 puff IH Q6H PRN 03/06/19 10/03/20 aerosol inhaler lisinopril 2.5 mg tablet 5 mg PO DAILY tab-cap 03/06/19 10/03/20 umeclidinium 62.5 mcg-vilanterol 1 inh IH Q24H 03/06/19 10/03/20 25 mcg/actuation powdr for inhalation Flovent HFA 1 puff IH BID #1 inh 03/17/19 10/03/20 polyethylene glycol 3350 17 g PO DAILY PRN PRN #1 ea 03/17/19 10/03/20 albuterol sulfate 1.25 mg INHALATION PRN PRN 06/23/19 10/03/20 apixaban 5 mg tablet 5 mg PO BID 07/30/19 10/03/20 hydrocodone-acetaminophen 1 tab PO Q6H PRN #10 tab 05/24/20 10/03/20 Previous Rx's Medication Instructions Recorded ibuprofen 600 mg PO TID-QID PRN #60 tab 02/28/19 Flovent HFA 1 puff IH BID #1 inh 03/17/19 polyethylene glycol 3350 17 g PO DAILY PRN PRN #1 ea 03/17/19 hydrocodone-acetaminophen 1 tab PO Q6H PRN #10 tab 05/24/20 Allergies Allergy/AdvReac Type Severity Reaction Status Date / Time No Known Allergies Allergy Verified 06/23/20 10:05 General JUANA: 2 Review of Systems All systems reviewed & are unremarkable except as noted in HPI and below PFSH Medical History (Updated 10/03/20 @ 07:27 by Ranulfo Ly DO) COPD (chronic obstructive pulmonary disease) COPD (chronic obstructive pulmonary disease) Emphysematous bleb of lung repeat cxr shows no signs of recurrence of PTX does have public safety teacher he follows up with. I did find an old CT chest and reviewed w/ him. Does show signif changes from COPD. signif blebs throughout entire lung. pt is not surgical candidate. cont pulm toilet no restrictions on activity at this time can use oil to remove tape residue. f/u w/ pulm to see if can find a better combo of inhalers to improve breathing HTN (hypertension) Ruptured emphysematous bleb on left lung Spontaneous pneumothorax Surgical History Arthroplasty of knee Colonoscopy - MAC (07/07/16) Social History Smoking/Tobacco Use Status: Former Tobacco Use Pack-years: 51 Tobacco: How many years used: 51 Smoking risk assessment performed?: Yes Alcohol Intake: current Alcohol Intake frequency: a few times a week Alcohol type: beer and hard liquor Drug use: Never Substance use type: does not use Household members: other Details: has a boarder to whom he rents a room Housing: house Current gender identity: male Do you feel safe at home: Yes Do you feel safe in your relationship?: Yes Additional Social history: 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 3.ENT: Atraumatic external nose and ears. Moist MM. Neck: Symmetric, trachea midline, No thyromegaly. 4.CVS: +S1/S2, No murmurs or gallops. Peripheral pulses 2+ and equal in all extremities. Brisk capillary refill in all extremities. 5.RESP: Tachypnea, labored breathing, decreased breath sounds throughout, no wheezes or rhonchi though. Bedside ultrasound demonstrates good lung movement on the left, diminished lung movement on the right, however it is difficult to evaluate for the difference between the lab versus pneumothorax. No clinical evidence of a tension pneumothorax though. No tracheal deviation. 6.GI: Soft, Nontender/Nondistended, No hepatosplenomegaly. No guarding or rebound. 7.MSK: Normocephalic/Atraumatic, Extremities w/o deformity or ttp No cyanosis or clubbing, Normal movement of all extremities 8.Skin: Warm, Dry. No rashes or lesions. 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 Sensation grossly intact, no focal neurologic deficits. 10.Psych: (AAO) x3. Appropriate mood and affect
--- NOTE | 2020-10-03 04:30 | DI.CT_ITS ---
EXAM: CT CHEST PE CTA CLINICAL HISTORY: sob, hx of pneumothorax, PE's, and COPD. TECHNIQUE: Imaging Protocol: Axial CT angiography was performed with multi-slice acquisition and mu lti-planar and/or 3D reconstructions. CONTRAST MATERIAL: Intravenous: Omnipaque 350 Contrast volume:structured data in ml COMPARISON: CT CT CHEST PE CTA from 06/23/2019 FINDINGS: Pulmonary Arteries: No evidence of filling defect to suggest pulmonary emboli. Tracheobronchial tree: Patent where visualized. Mediastinum and Bere: No dominant adenopathy or fluid collection. Pulmonary parenchyma: Underlying emphysematous and fibrotic changes. Superimposed bilateral ground-g lass infiltrates. No consolidation. Pleura: No effusion or pneumothorax. Heart: The heart is not dilated. coronary artery calcifications are seen. Aorta: Thoracic aorta non-dilated. No evidence of dissection. Upper abdomen: The liver is enlarged and shows fatty infiltration. Liver cysts are also seen. Ther e is a question of thickening of the of the wall of the distal esophagus. Bones: Endplate osteophytes in the spine. Compression fracture. IMPRESSION: No evidence of pulmonary embolism. Underlying emphysematous changes. Superimposed bilateral infectio us or inflammatory infiltrates. RADIATION DOSE DELIVERED: 454.04mGy.cm Total DLP DATA REPOSITORY: All CT scans at this facility are submitted to the National Radiology Data Registry (NRDR) Dose Index Registry (DIR) with the [employer] (ACR). RADIATION OPTIMIZATION: All CT scans at this facility use at least one of these dose optimization te chniques: automated exposure control; mA and/or kV adjustment per patient size (includes targeted exa ms where dose is matched to clinical indication); or iterative reconstruction.
[2020-10-03] MEDS: Albuterol/Ipratropium 3 ML UPD VIAL UPD (04:42)
[2020-10-03] MEDS: Albuterol/Ipratropium 3 ML UPD VIAL 6 ML UPD (04:49)
[2020-10-03] MEDS: methylPREDNISolone SUCC 125 MG VIAL IVP (04:50)
[2020-10-03] MEDS: MAGNESIUM SULFATE 2 GM/50 ML BAG IVPB (04:50)
--- NOTE | 2020-10-03 04:53 | DI.VRAD_ITS ---
PROCEDURE INFORMATION: Exam: XR Chest, 1 View Exam date and time: 10/03/2020 4:40 AM Age: 65 years old Clinical indication: Shortness of breath; Patient HX: SOB, concern for pneumothorax, right? TECHNIQUE: Imaging protocol: XR of the chest Views: 1 view. COMPARISON: CT CHEST W LEB 07/29/2020 10:36 AM FINDINGS: Lungs: Minimal nonspecific bilateral interstitial prominence , possibly chronic in nature with acute process not excluded. Pleural space: Unremarkable. No pleural effusion. No pneumothorax. Heart/Mediastinum: Unremarkable. No cardiomegaly. Bones/joints: Unremarkable. IMPRESSION: Minimal nonspecific bilateral interstitial prominence , possibly chronic in nature with acute process not excluded. Dictated and Authenticated by: Pablo Munson MD. Ordering:EMILY Winchester MD
[2020-10-03 04:58] LABS: Abs Immature Grans 0.06 10^3/uL (0.0-0.06); Absolute Basophil Count 0.06 10^3/uL (0.0-0.2); Absolute Lymphocyte Count 1.18 10^3/uL (1.2-3.4); Absolute Monocyte Count 0.87 10^3/uL (0.1-0.8); Absolute Neutrophil Count 11.92 10^3/uL (1.2-6.7); BE (Venous) 1 mmol/L (-2-3); Basophils % 0.4; Eosinophils % 1.1; HCO3 (Venous) 26 mmol/L (23-28); HCT 44.9 % (40.0-50.0); HGB 14.4 g/dL (13.5-17.5); Immature Grans % 0.4; Lymphocytes % 8.3; MCH 28.7 pg (27.0-33.0); MCHC 32.1 % (32.0-36.0); MCV 89.4 fL (80-95); Monocytes % 6.1; Neutrophils % 83.7; Nucleated RBC 0 %; O2 Sat (Venous) 70 %; Platelet Count 286 10^3/uL (130-400); RBC 5.02 10^6/uL (4.36-5.78); RDW 12.5 % (11.8-14.1); RDW-SD 40.8 fL; TCO2 (Venous) 24 mmol/L (24-29); WBC 14.24 10^3/uL (4.4-10.8); pCO2 (Venous) 49 mmHg (41-51); pH (Venous) 7.34 (7.31-7.41); pO2 (Venous) 37 mmHg
[2020-10-03 05:06] LABS: Absolute Eosinophil Count 0.16 10^3/uL (0.0-0.7)
[2020-10-03 05:12] LABS: Source Nasopharynx
[2020-10-03 05:23] LABS: ALT 31 U/L (16-63); AST 20 U/L (15-37); Albumin 3.7 g/dL (3.4-5.0); Alkaline Phosphatase 60 U/L (46-116); Anion Gap 9.9 mmol/L (3-11); BUN 19 mg/dL (7-18); Bilirubin, Total 0.4 mg/dL (0.2-1.0); CO2 26.1 mmol/L (21.0-32.0); Calcium 8.6 mg/dL (8.5-10.1); Chloride 103 mmol/L (98-107); Estimated GFR 55.06 (mL/min/1.73m2); Glucose 118 mg/dL (74-106); NT-proBNP 51 pg/mL (<300); Potassium 4.2 mmol/L (3.5-5.1); Sodium 139 mmol/L (136-145); Total Protein 7.9 g/dL (6.4-8.2); Troponin I < 0.05 ng/mL (<0.06)
[2020-10-03 05:29] LABS: PTT Activated 24.4 sec (21.0-27.5); Prothrombin Time 10.1 sec (9.3-11.0)
[2020-10-03 05:40] LABS: Bilirubin Negative (Negative); Blood Negative (Negative); Clarity Clear (Clear); Glucose Negative (Negative); Ketones Trace mg/dL (Negative); Leukocyte Esterase Negative (Negative); Nitrite Negative (Negative); Specific Gravity >= 1.030 (1.005-1.025); Urobilinogen 0.2 EU/dL (Up TO 0.2); pH 5.5 (5-8)
[2020-10-03 05:53] LABS: Influenza A PCR Negative (Negative); Influenza B PCR Negative (Negative); RSV PCR Negative (Negative)
[2020-10-03 05:59] LABS: COVID-19 PCR Negative (Negative)
[2020-10-03] MEDS: Omnipaque 350 MG/ML 100 ML BTL IJ (06:06)
[2020-10-03] MEDS: Normal Saline - Diluent 50 ML VIAL IV (06:06)
--- NOTE | 2020-10-03 06:47 | DI.VRAD_ITS ---
PROCEDURE INFORMATION: Exam: CT Angiography Chest With Contrast Exam date and time: 10/03/2020 4:46 AM Age: 65 years old Clinical indication: Shortness of breath; Patient HX: SOB, HX of pneumothorax, HX pe's, copd TECHNIQUE: Imaging protocol: Computed tomographic angiography of the chest with intravenous contrast. 3D rendering (Not supervised by radiologist): MIP and/or 3D reconstructed images were created by the technologist. COMPARISON: CT CHEST PE CTA 06/23/2019 4:59 PM FINDINGS: Pulmonary arteries: No pulmonary emboli. Aorta: No aortic aneurysm. No aortic dissection. Lungs: Moderate to severe emphysema with superimposed mild reticular/ground-glass densities bilaterally and mild subsegmental atelectasis Pleural space: No pneumothorax. No pleural effusion. Heart: No cardiomegaly. Coronary calcifications No pericardial effusion. Lymph nodes: Unremarkable. No enlarged lymph nodes. Bones/joints: Unremarkable. No acute fracture. Soft tissues: Unremarkable. Question mild esophageal thickening Fatty infiltration of the liver and simple cysts noted IMPRESSION: No pulmonary emboli observed Moderate to severe emphysema and superimposed mild reticular/ground-glass densities which may be infectious/inflammatory. Correlate for COVID-19 as clinically indicated Coronary artery disease Question mild esophagitis Dictated and Authenticated by: Gen Mclean MD. Ordering:EMILY Winchester MD
[2020-10-03] MEDS: DOXYCYCLINE 100 MG in Normal Saline 100 ML IVPB ×2 (07:10→17:14)
[2020-10-03] MEDS: PIPERACILLIN/TAZO 3.375 GM in Normal Saline 50 ML IVPB (07:15)
[2020-10-03] MEDS: VANCOMYCIN/WATER (PEG) 2 GM/400 ML BAG IVPB (08:00)
--- NOTE | 2020-10-03 08:28 | W.PM.HP.N ---
Date of service: 10/03/20 Time of Service: 08:28 Assessment and Plan Assessment and plan (1) Pneumonia: Status: Acute Assessment and plan: Continue Zosyn and doxycycline. Check urine for strep antigen. Check mycoplasma Legionella studies. Continue ipratropium with albuterol MDIs every 6 hours along with as needed albuterol. Continue IV Solu-Medrol for the next 24 hours then switch to prednisone. Check repeat Covid testing in the morning. Continue supportive care with supplemental oxygenation. Qualifiers: Laterality: bilateral Lung location: lower lobe of lung Pneumonia type: due to unspecified organism Qualified Code(s): J18.9 - Pneumonia, unspecified organism (2) COPD exacerbation: Status: Acute Assessment and plan: Treatment as above History of Present Illness History of Present Illness Chief Complaint: dyspnea, cough, chills Narrative: 65-year-old male former smoker with history of COPD not oxygen dependent who has a history of pulmonary embolus diagnosed couple years ago has been on apixaban ever since then, prior pneumothorax due to a ruptured bleb now presents emergency department with acute onset of fever and rigors and dyspnea. 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 Patient had been feeling fine yesterday but this morning set the alarm at 1:00 got up did not feel too well felt little short of breath but went out to [place] and by 3 AM was having severe rigors and dyspnea. His brother insisted on him presenting to the emergency department where he was evaluated by Dr. Ly including routine labs EKG and CT scan of his chest. CTA of his chest showed no pulmonary emboli but moderate to severe emphysema with superimposed mild reticular groundglass densities bilaterally and subsegmental atelectasis. No pneumothorax no pleural effusion. Laboratory work-up includes CBC demonstrated a leukocytosis of 14,000, CMP was unremarkable. Troponin levels were less than 0.05x2 sets. proBNP was normal at 51. CRP is elevated at 3.4 and procalcitonin level is 0.4, rapid nasopharynx PCR testing for SARS-CoV-2 was negative and his influenza screen and RSV was also negative. Upon arrival to emergency department he was noted to be tachypneic and tachycardic and was given multiple DuoNeb updrafts along with a bolus of magnesium sulfate 2 g and methylprednisolone 125 mg. He was started on broad-spectrum antibiotics including Zosyn doxycycline and vancomycin. After the above treatment his respiratory status improved and after Tylenol his fever defervesced. His tachypnea and tachycardia have settled down and he is oxygenating on 2 L nasal cannula and able to speak in complete paragraphs. Patient is now admitted for treatment of community-acquired pneumonia and COPD exacerbation but is still a person of interest regarding Covid because of the rapidity with which his symptoms initiated. To the best of his knowledge has not been around anybody who is Covid positive although he does visit with his daughter who is a schoolteacher in [place]. He also meets up with his brother once a week on Fridays although he and his brother have not gotten together for about 3 weeks. Patient lives with his [id number] who does not leave the house. No one around him has been ill with fevers or respiratory symptoms. Review of Systems All systems reviewed & are unremarkable except as noted in HPI and below Cardiovascular Cardiovascular: Reports as per HPI Respiratory Respiratory: Reports as per HPI Gastrointestinal Gastrointestinal: Reports system reviewed and no additional complaints, except as documented [facility] Medical History (Updated 10/03/20 @ 11:12 by Jermain Puri) COPD (chronic obstructive pulmonary disease) COPD (chronic obstructive pulmonary disease) Emphysematous bleb of lung repeat cxr shows no signs of recurrence of PTX does have treasury analyst he follows up with. I did find an old CT chest and reviewed w/ him. Does show signif changes from COPD. signif blebs throughout entire lung. pt is not surgical candidate. cont pulm toilet no restrictions on activity at this time can use oil to remove tape residue. f/u w/ pulm to see if can find a better combo of inhalers to improve breathing HTN (hypertension) Ruptured emphysematous bleb on left lung Spontaneous pneumothorax Surgical History Arthroplasty of knee Colonoscopy - MAC (07/07/16) Social History Smoking/Tobacco Use Status: Former Tobacco Use Pack-years: 51 Tobacco: How many years used: 51 Smoking risk assessment performed?: Yes Alcohol Intake: current Alcohol Intake frequency: a few times a week Alcohol type: beer and hard liquor Drug use: Never Substance use type: does not use Household members: other Details: has a boarder to whom he rents a room Housing: house Current gender identity: male Do you feel safe at home: Yes Do you feel safe in your relationship?: Yes Additional Social history: 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 [email or web address]; 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 Meds Home Medications and Allergies Home Medications Medication Instructions Recorded Confirmed Type aspirin [Aspir-81] 81 mg PO DAILY tab-cap 06/15/16 10/03/20 History ibuprofen 600 mg PO TID-QID PRN #60 tab 02/28/19 10/03/20 Rx albuterol sulfate 90 mcg/actuation 2 puff IH Q6H PRN 03/06/19 10/03/20 History aerosol inhaler lisinopril 2.5 mg tablet 5 mg PO DAILY tab-cap 03/06/19 10/03/20 History umeclidinium 62.5 mcg-vilanterol 1 inh IH Q24H 03/06/19 10/03/20 History 25 mcg/actuation powdr for inhalation Flovent HFA 1 puff IH BID #1 inh 03/17/19 10/03/20 Rx polyethylene glycol 3350 17 g PO DAILY PRN PRN #1 ea 03/17/19 10/03/20 Rx albuterol sulfate 1.25 mg INHALATION PRN PRN 06/23/19 10/03/20 History apixaban 5 mg tablet 5 mg PO BID 07/30/19 10/03/20 History Allergies Allergy/AdvReac Type Severity Reaction Status Date / Time No Known Allergies Allergy Verified 06/23/20 10:05 Exam Narrative Exam Narrative: Middle-age male lying in bed in semifowler position in no acute respiratory distress. Patient is able to talk to me in complete sentences. He is not using accessory respiratory muscles. Lungs with diffusely diminished breath sounds without wheezing rhonchi or rales. Heart regular rate and rhythm no appreciable murmur rub or gallop. Abdomen soft nontender no palpable masses no bruits no organomegaly. Extremities without peripheral cyanosis or edema. Neuro exam grossly intact nonfocal. Genitalia rectal exam deferred. Skin without any rashes or bruising Results Labs Result diagrams: 10/03/20 04:45 10/03/20 04:45 Labs: Laboratory Results - last 24 hr 10/03/20 10/03/2010/03/20 04:45 04:45 04:45 WBC 14.24 H RBC 5.02 Hgb 14.4 Hct 44.9 MCV 89.4 MCH 28.7 MCHC 32.1 RDW 12.5 Plt Count 286 MPV 9.0 Immature Gran % 0.4 Neutrophils % 83.7 Lymphocytes % 8.3 Monocytes % 6.1 Eosinophils % 1.1 Basophils % 0.4 Nucleated RBC % 0 Absolute Neutrophils 11.92 H Absolute Lymphocytes 1.18 L Absolute Monocytes 0.87 H Absolute Eosinophils 0.16 Absolute Basophils 0.06 PT INR APTT VBG pH 7.34 VBG pCO2 49 VBG pO2 37 VBG HCO3 26 VBG Total CO2 24 VBG O2 Saturation 70 VBG Base Excess 1 Sodium 139 Potassium 4.2 Chloride 103 Carbon Dioxide 26.1 Anion Gap 9.9 BUN 19 H Creatinine 1.30 Estimated GFR/1.73 m2 55.06 Glucose 118 H Calcium 8.6 Total Bilirubin 0.4 AST 20 ALT 31 Alkaline Phosphatase 60 Troponin I < 0.05 NT-Pro-B Natriuret Pep 51 Total Protein 7.9 Albumin 3.7 Urine Color Urine Clarity Urine pH Ur Specific Carter Urine Protein Urine Ketones Urine Blood Urine Nitrite Urine Bilirubin Urine Urobilinogen Ur Leukocyte Esterase Urine Glucose COVID-19 Source SARS-CoV-2 (PCR) Influenza Type A (PCR) Influenza Type B (PCR) RSV (PCR) 10/03/20 10/03/20 10/03/20 04:45 05:00 05:20 WBC RBC Hgb Hct MCV MCH MCHC RDW Plt Count MPV Immature Gran % Neutrophils % Lymphocytes % Monocytes % Eosinophils % Basophils % Nucleated RBC % Absolute Neutrophils Absolute Lymphocytes Absolute Monocytes Absolute Eosinophils Absolute Basophils PT 10.1 INR 1.0 APTT 24.4 VBG pH VBG pCO2 VBG pO2 VBG HCO3 VBG Total CO2 VBG O2 Saturation VBG Base Excess Sodium Potassium Chloride Carbon Dioxide Anion Gap BUN Creatinine Estimated GFR/1.73 m2 Glucose Calcium Total Bilirubin AST ALT Alkaline Phosphatase Troponin I NT-Pro-B Natriuret Pep Total Protein Albumin Urine Color Yellow Urine Clarity Clear Urine pH 5.5 Ur Specific Carter >= 1.030 H Urine Protein Negative Urine Ketones Trace H Urine Blood Negative Urine Nitrite Negative Urine Bilirubin Negative Urine Urobilinogen 0.2 Ur Leukocyte Esterase Negative Urine Glucose Negative COVID-19 Source Nasopharynx SARS-CoV-2 (PCR) Negative Influenza Type A (PCR) Negative Influenza Type B (PCR) Negative RSV (PCR) Negative Last Vital Signs Temp 37.7 C H 10/03/20 04:22 Pulse 106 H 10/03/20 07:30 Resp 24 10/03/20 07:53 BP 120/78 10/03/20 07:30 Pulse Ox 96 10/03/20 07:53 COVID-19 Screening Have you, or household traveled for leisure in last 14 days?: No Had IN PERSON contact w/suspected or confirmed C-19 person: No
--- NOTE | 2020-10-03 08:34 | INITIAL_ITS ---
- If Service Date Differs Date of service: 10/03/20 Time of Service: 08:34 Care Management Initial Assess REASON FOR HOSPITALIZATION:: SOB PAST MEDICAL HISTORY/PAST SURGICAL HISTORY:: COPD (chronic obstructive pulmonary disease). COPD (chronic obstructive pulmonary disease). Emphysematous bleb of lung. repeat cxr shows no signs of recurrence of PTX. does have video rental clerk he follows up with. I did find an old CT chest and reviewed w/ him. Does show signif changes from COPD. signif blebs throughout entire lung. pt is not surgical candidate. cont pulm toilet. no restrictions on activity at this time. can use oil to remove tape residue. f/u w/ pulm to see if can find a better combo of inhalers to improve breathing. HTN (hypertension). Ruptured emphysematous bleb. on left lung. Spontaneous pneumothorax. Surgical History . Arthroplasty of knee. Colonoscopy - MAC (07/07/16) PREVIOUS FUNCTIONAL STATUS/SOCIAL/FAMILY SUPPORTS:: Jimmy lives in [place], [place] in a single family home owned by his daughter . 's grandmother also lives in the house but they live on separate sides. 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 He is independent at baseline and receives no community services. CURRENT FUNCTIONAL STATUS:: CM was unable to meet with Jimmy in person as he remains a PUI even though his initial Covid test came back negative. A phone conversation was held and Jimmy was pleasant and agreeable, answering all questions readily. CM will continue to follow. ADVANCE DIRECTIVES:: On file at [facility]. Daughter Heidi Rowland [facility] Has patient been provided with info about the portal/API?: Yes Did the patient sign up for the portal?: No CODE STATUS:: Full Code INSURANCE COVERAGE / FINANCIAL ISSUES:: Medicare. BC BS CURRENT HOME/COMMUNITY SERVICES/EQUIPMENT:: none PRIMARY CARE PHYSICIAN:: Susannah Malhotra POTENTIAL DISCHARGE NEEDS:: Follow up with PCP and discharge plan of care PATIENT/FAMILY EDUCATION NEEDS:: Discharge plan, limitations, follow up plan, Ask Me Three ANTICIPATED BARRIERS TO DISCHARGE:: none identified TRANSPORTATION:: via private vehicle with family/friend PLAN:: Jimmy will likely be discharged home with no new services. He will follow u p with his PCP and discharge plan and transport with his daughter. CM will continue to support Jimmy and his family and assess for and coordinate discharge planning needs.
[2020-10-03 08:46] LABS: C-Reactive Protein 3.49 mg/dL (0.0-0.3)
[2020-10-03 08:53] LABS: Troponin I < 0.05 ng/mL (<0.06)
[2020-10-03 09:00] LABS: Procalcitonin 0.4 ng/mL
[2020-10-03] MEDS: Aspirin E.C. 81 MG TABEC PO (09:05)
[2020-10-03] MEDS: Apixaban 5 MG TAB PO ×2 (09:05→19:53)
[2020-10-03 09:08] LABS: D-Dimer 438 ng/mlFEU (<500)
[2020-10-03] MEDS: Lisinopril 5 MG TAB PO (09:14)
[2020-10-03] MEDS: Normal Saline Flush 10 ML SYR IVP ×6 (09:56→20:02)
[2020-10-03] MEDS: Mometasone 220 MCG 14 DOSE INHALER 2 PUFF IH ×2 (11:27→20:01)
[2020-10-03] MEDS: Ipratropium/Albuterol 4 GM 120 PUFF INH IH ×3 (11:27→20:01)
[2020-10-03] MEDS: methylPREDNISolone SUCC 125 MG VIAL 60 MG IVP ×2 (12:10→19:55)
[2020-10-03] MEDS: Pantoprazole 40 MG TABCR PO (12:11)
[2020-10-03 12:41] LABS: Troponin I < 0.05 ng/mL (<0.06)
[2020-10-03] MEDS: PIPERACILLIN/TAZO 4.5 GM in Normal Saline 100 ML IVPB ×2 (15:01→19:57)
[2020-10-03] MEDS: Normal Saline 500 ML 100 ML IV (15:01)
[2020-10-04] VITALS (9 sets, daily range): BP systolic 103–135; BP diastolic 70–85; PULSE 78–107; RESP 16–22; TEMP 36.3–37.3; O2SAT 93–98
[2020-10-04] MEDS: Normal Saline Flush 10 ML SYR IVP ×3 (02:14→20:03)
[2020-10-04] MEDS: PIPERACILLIN/TAZO 4.5 GM in Normal Saline 100 ML IVPB ×4 (02:14→19:59)
[2020-10-04] MEDS: Mylanta Suspension 30 ML CUP PO (02:16)
[2020-10-04] MEDS: DOXYCYCLINE 100 MG in Normal Saline 100 ML IVPB ×2 (06:03→17:19)
[2020-10-04 07:12] LABS: Abs Immature Grans 0.22 10^3/uL (0.0-0.06); Absolute Basophil Count 0.02 10^3/uL (0.0-0.2); Absolute Monocyte Count 0.65 10^3/uL (0.1-0.8); Basophils % 0.1; HCT 38.3 % (40.0-50.0); HGB 12.6 g/dL (13.5-17.5); Immature Grans % 1.2; Lymphocytes % 5.6; MCH 28.6 pg (27.0-33.0); MCHC 32.9 % (32.0-36.0); MPV 9.3 fL (8.0-11.0); Monocytes % 3.5; Neutrophils % 89.6; Nucleated RBC 0 %; Platelet Count 273 10^3/uL (130-400); RDW 12.8 % (11.8-14.1); RDW-SD 40.8 fL; WBC 18.68 10^3/uL (4.4-10.8)
[2020-10-04 07:13] LABS: Absolute Lymphocyte Count 1.05 10^3/uL (1.2-3.4); Absolute Neutrophil Count 16.74 10^3/uL (1.2-6.7)
[2020-10-04 07:24] LABS: C-Reactive Protein 8.83 mg/dL (0.0-0.3); Magnesium 2.2 mg/dL (1.8-2.4)
[2020-10-04 07:26] LABS: ALT 27 U/L (16-63); AST 16 U/L (15-37); Albumin 3.1 g/dL (3.4-5.0); Alkaline Phosphatase 49 U/L (46-116); BUN 22 mg/dL (7-18); Bilirubin, Total 0.4 mg/dL (0.2-1.0); CREATININE 1.43 mg/dL (0.70-1.30); Calcium 8.8 mg/dL (8.5-10.1); Chloride 104 mmol/L (98-107); Estimated GFR 49.33 (mL/min/1.73m2); Glucose 163 mg/dL (74-106); Potassium 4.3 mmol/L (3.5-5.1); Sodium 136 mmol/L (136-145)
[2020-10-04] MEDS: Ipratropium/Albuterol 4 GM 120 PUFF INH IH ×4 (07:46→20:03)
[2020-10-04] MEDS: Mometasone 220 MCG 14 DOSE INHALER 2 PUFF IH ×2 (07:46→20:04)
[2020-10-04] MEDS: Apixaban 5 MG TAB PO ×2 (08:04→20:03)
[2020-10-04] MEDS: Pantoprazole 40 MG TABCR PO (08:05)
[2020-10-04] MEDS: Lisinopril 5 MG TAB PO (08:05)
[2020-10-04] MEDS: predniSONE 20 MG TAB 60 MG PO (08:05)
[2020-10-04] MEDS: Aspirin E.C. 81 MG TABEC PO (08:06)
--- NOTE | 2020-10-04 11:03 | PHA.REVIEW ---
Pharmacy Admission Review - Admission Clinical Review (Last Reviewed 10/03/20 @ 11:08 by Jermain Puri) COPD exacerbation (Acute) Pneumonia (Acute) Breath shortness (Acute) No Known Allergies Allergy (Verified 06/23/20 10:05) Height 5 ft 11 in Weight 102.058 kg - Renal Dosing Renal Dosing: BUN 22 mg/dL (7-18) H 10/04/20 06:35 Creatinine 1.43 mg/dL (0.70-1.30) H 10/04/20 06:35 Medications needing adjustments: Reviewed (Crcl ~61 mL/min using adjusted body weight, current meds okay.) - Anticoagulation Anticoagulation: Hgb 12.6 g/dL (13.5-17.5) L 10/04/20 06:35 Hct 38.3 % (40.0-50.0) L 10/04/20 06:35 Plt Count 273 10^3/uL (130-400) 10/04/20 06:35 INR 1.0 (0.9-1.1) 10/03/20 04:45 Creatinine 1.43 mg/dL (0.70-1.30) H 10/04/20 06:35 DVT Prohphylaxis: N/A Therapeutic Anticoagulation: Reviewed Medications: Apixaban - Opiate Usage Evaluate Pain Scale/Pains Meds: N/A - Relevant Labs Sodium 136 mmol/L (136-145) 10/04/20 06:35 Potassium 4.3 mmol/L (3.5-5.1) 10/04/20 06:35 Chloride 104 mmol/L (98-107) 10/04/20 06:35 Magnesium 2.2 mg/dL (1.8-2.4) 10/04/20 06:35 C-Reactive Protein 8.83 mg/dL (0.0-0.3) H 10/04/20 06:35 Electrolytes, C-Reactive P, ESR: Reviewed - DM Control DM Control: Glucose 163 mg/dL (74-106) H 10/04/20 06:35 Insulin Dosing: Intervened (BG elevated so far this admission, no A1c on file. Will mention to provider) - Heart Failure/AZ Heart Failure/AZ: Troponin I < 0.05 ng/mL (<0.06) 10/03/20 12:05 NT-Pro-B Natriuret Pep 51 pg/mL (<300) 10/03/20 04:45 EF%, DAVID's, B-Blockers, Diuretics: Reviewed - BP Control BP Control: Blood Pressure 120/78 Blood Pressure 103/70 If elevated: N/A - Qtc Review If Elevated: N/A (Qtc 414 on admission) - IV to PO Switch IV Medications: Reviewed - Home Meds Home Med List reviewed: Intervened (Aspirin and ibuprofen may enhance the bleed risk of apixaban. Hydrocodone/APAP on home med list but was one time Rx from a few months ago, made provider aware.) Relevent Home Meds Not ordered & why?: fluticasone (has mometasone subbed for this), ibuprofen (PRN), umeclidinium and vilanterol - Current meds Current Medication Order Review: Intervened (Discontinued DI meds (already given).) - Comments Comments/Follow Ups: Watch VS, BG, labs, for culture results and for med changes (renal dose adjustments, home meds) Antibiotic Activity - Pharmacy Antibiotic Review Pharmacy Antibiotic Activity: C/S review (Blood cultures no growth @24 hours, sputum culture growing normal do.) - Antibiotic Information Antibiotic Review Info: Zosyn and doxycycline continue (day 2). Try to keep admin of these two meds 2+ hours apart.
--- NOTE | 2020-10-04 12:43 | W.NUTRFU ---
Date of service: 10/04/20 Time of Service: 12:44 Nutritional Follow up NOTE: 65 year old male admitted with PNA with COPD. BMI indicates class 1 obesity. Following regular meal plan with excellent intake (>75%). Not at nutritional risk at this time. Will continue to follow. Time Spent in Nutritional Counseling and Treatment: 0
--- NOTE | 2020-10-04 13:09 | W.PM.PROGNOT ---
Date of Service Date of service: 10/04/20 Time of Service: 13:10 Assessment and Plan Assessment and plan (1) Pneumonia: Status: Acute Assessment and plan: Continue Zosyn and doxycycline. Check urine for strep antigen. Check mycoplasma Legionella studies. Continue ipratropium with albuterol MDIs every 6 hours along with as needed albuterol. Solumedrol changed to prednisone. Repeat COVID testing pending and was just sent out this afternoon. At present time he is not needing supplemental oxygen. I anticipate discharge home in the next day. Qualifiers: Pneumonia type: due to unspecified organism Laterality: bilateral Lung location: lower lobe of lung Qualified Code(s): J18.9 - Pneumonia, unspecified organism (2) COPD exacerbation: Status: Acute Assessment and plan: Treatment as above Subjective Subjective Interval history since last seen: Patient states that his breathing is much. Cough has become more productive w/ some blood tinge. He denies dyspnea and he has remained afebrile. He remains on room air w/ good oxygenation. His repeat COVID-19 testing is pending. He remains on Zosyn and corticosteroids along w/ Combivent MDI and prn albuterol. Exam Narrative Exam Narrative: Male who is alert and oriented x 3, sitting up in bed in no respiratory distress. He is tearful and concerned about his COVID-19 test d/t his daughter having to remain at home from her teaching position He is not using any accessory respiratory muscles and is able to converse in paragraphs. No couging during our conversation Lungs are clear but diminished, no rhonchi or wheezing. Heart is regular Abdomen soft and nontender Objective Last Vital Signs Temp 37.3 C 10/04/20 12:04 Pulse 97 H 10/04/20 12:04 Resp 18 10/04/20 12:04 BP 124/85 10/04/20 12:04 Pulse Ox 95 10/04/20 12:04 Laboratory Results - last 24 hr 10/04/20 10/04/20 10/04/20 06:35 06:35 06:35 WBC 18.68 H D RBC 4.40 Hgb 12.6 L Hct 38.3 L MCV 87.0 MCH 28.6 MCHC 32.9 RDW 12.8 Plt Count 273 MPV 9.3 Immature Gran % 1.2 Neutrophils % 89.6 Lymphocytes % 5.6 Monocytes % 3.5 Eosinophils % 0.0 Basophils % 0.1 Nucleated RBC % 0 Absolute Neutrophils 16.74 H Absolute Lymphocytes 1.05 L Absolute Monocytes 0.65 Absolute Eosinophils 0.00 Absolute Basophils 0.02 Sodium 136 Potassium 4.3 Chloride 104 Carbon Dioxide 23.0 Anion Gap 9.0 BUN 22 H Creatinine 1.43 H Estimated GFR/1.73 m2 49.33 Glucose 163 H Calcium 8.8 Magnesium 2.2 Total Bilirubin 0.4 AST 16 ALT 27 Alkaline Phosphatase 49 C-Reactive Protein 8.83 H Total Protein 7.0 Albumin 3.1 L
--- NOTE | 2020-10-04 15:19 | PDOC.CMPRO ---
- If Service Date Differs Date of service: 10/04/20 Time of Service: 15:19 Care Management Progress Note S/O:Jimmy remains a PUI so CM was unable to meet with him in person again. When CM called Jimmy on his phone he was busy and unable to talk for long. He stated that he is feeling better and that he has no concerns or identified needs at this time. A: Jimmy is a 65 year old man admitted on 10/03/20 with COPD Exacerbation P:Jimmy will likely be discharged home with no new services. He will follow up with his PCP and discharge plan and transport with his daughter. CM will continue to support Jimmy and his family and assess for and coordinate discharge planning needs.
[2020-10-04] MEDS: Normal Saline 500 ML 30 ML IV ×2 (17:19→20:04)
[2020-10-04 20:03] LABS: Legionella Ag Detection Urine Negative (Negative)
[2020-10-05] VITALS (8 sets, daily range): BP systolic 109–129; BP diastolic 69–89; PULSE 66–108; RESP 16–20; TEMP 36.3–36.8; O2SAT 92–97
[2020-10-05 00:38] LABS: COVID-19 RT-PCR UVMMC Result Negative (Negative)
[2020-10-05] MEDS: Normal Saline Flush 10 ML SYR IVP ×2 (02:07→13:40)
[2020-10-05] MEDS: PIPERACILLIN/TAZO 4.5 GM in Normal Saline 100 ML IVPB ×3 (02:08→13:40)
[2020-10-05] MEDS: DOXYCYCLINE 100 MG in Normal Saline 100 ML IVPB (06:05)
[2020-10-05 06:52] LABS: Absolute Basophil Count 0.02 10^3/uL (0.0-0.2); Absolute Lymphocyte Count 1.87 10^3/uL (1.2-3.4); Absolute Monocyte Count 1.41 10^3/uL (0.1-0.8); Basophils % 0.1; Eosinophils % 0.1; HCT 36.6 % (40.0-50.0); HGB 12.1 g/dL (13.5-17.5); Immature Grans % 0.6; Lymphocytes % 11.3; MCH 29.2 pg (27.0-33.0); MCHC 33.1 % (32.0-36.0); MCV 88.2 fL (80-95); MPV 9.1 fL (8.0-11.0); Monocytes % 8.5; Neutrophils % 79.4; Nucleated RBC 0 %; Platelet Count 273 10^3/uL (130-400); RBC 4.15 10^6/uL (4.36-5.78); RDW 13.1 % (11.8-14.1); RDW-SD 41.8 fL; WBC 16.58 10^3/uL (4.4-10.8)
[2020-10-05 06:57] LABS: Absolute Eosinophil Count 0.02 10^3/uL (0.0-0.7); Absolute Neutrophil Count 13.16 10^3/uL (1.2-6.7)
[2020-10-05 07:02] LABS: Anion Gap 7.4 mmol/L (3-11); BUN 22 mg/dL (7-18); CO2 24.6 mmol/L (21.0-32.0); CREATININE 1.29 mg/dL (0.70-1.30); Calcium 8.2 mg/dL (8.5-10.1); Chloride 107 mmol/L (98-107); Estimated GFR 55.56 (mL/min/1.73m2); Glucose 143 mg/dL (74-106); Sodium 139 mmol/L (136-145)
[2020-10-05] MEDS: Ipratropium/Albuterol 4 GM 120 PUFF INH IH ×2 (08:34→12:29)
[2020-10-05] MEDS: Mometasone 220 MCG 14 DOSE INHALER 2 PUFF IH (08:34)
[2020-10-05] MEDS: predniSONE 20 MG TAB 60 MG PO (08:39)
[2020-10-05] MEDS: Apixaban 5 MG TAB PO (08:40)
[2020-10-05] MEDS: Lisinopril 5 MG TAB PO (08:40)
[2020-10-05] MEDS: Aspirin E.C. 81 MG TABEC PO (08:40)
[2020-10-05] MEDS: Pantoprazole 40 MG TABCR PO (08:40)
--- NOTE | 2020-10-05 11:54 | W.PM.DS.N ---
Date of service: 10/05/20 Time of Service: 11:54 DS: Diagnosis Discharge Diagnosis (1) Pneumonia: Status: Acute Asessment and Plan: Patient has been clinically improving and has dyspnea has markedly better. He was able to ambulate without significant dyspnea and had no hypoxemia during ambulatory pulse oximetry testing. He has remained afebrile and his leukocytosis is declining. Present time he can be discharged home with continued antibiotic treatment. Patient be placed on Levaquin 750 mg p.o. daily for 5 more days along with prednisone 40 mg daily for 5 days. He should use his albuterol inhaler 2 puffs every 4-6 hours as needed for dyspnea or wheezing. (2) COPD exacerbation: Status: Acute Asessment and Plan: As above Discharge Plan Disposition Patient Disposition: HOME Condition: Improving Discharge Details Reason For Visit: COPD EXACERBATION, PNEUMONIA, SOB Admit Date/Time: 10/03/20 07:20 Admit Provider: Jermain Puri Attending Provider: Jermain Puri Primary Care Provider: Susannah Malhotra Hospital Course Hospital Course: 65-year-old male former smoker with history of COPD not oxygen dependent who has a history of pulmonary embolus diagnosed couple years ago has been on apixaban ever since then, prior pneumothorax due to a ruptured bleb now presents emergency department with acute onset of fever and rigors and dyspnea. Patient was found to have on CTA: No evidence of pulmonary embolism. Underlying emphysematous changes. Superimposed bilateral infectious or inflammatory infiltrates. Patient was given multiple DuoNeb treatments, iv fluids and started on Zosyn and doxycycline. He underwent THERAPEUTIC CASE MANAGER swab for Covid-19 using the rapid in-house PCR which was negative (also negative for influenza and RSV), however, due to concerns from the ER that due to the rapid onset of his symptoms (within a few hours) they requested that he be admitted as a PUI in respiratory isolation. Repeat COVID-19 PCR swab was obtained the next day on 10/04 and was negative. On the day of discharge, he was afebrile and his WBC which had peaked at 18,000 had come down to 16,000 however he had also received iv solumedrol. He had an ambulatory pulse oximetry on room air on the day of discharge and he walked 650 ft in 3 monutes and his resting oxygen saturation of 97% dropped to 92% but quickly recovered to 95% upon rest. Patient is sufficiently improving that he can return home to complete another 5 days of oral antibiotics. He will be discharged on Levaquin 750 mg po daily x 5 days along w/ prednisone 20 mg two tabs daily x 5 days. He received Prevnar 13 at discharge. Patient reportedly previously had his annual influenza vaccine and in prior years had his pneumovax. Home Meds and New Rx's Prescriptions: New levofloxacin 750 mg tablet 750 mg PO DAILY 5 Days Qty: 5 RF: 0 prednisone 20 mg tablet 40 mg PO DAILY Qty: 10 RF: 0 Continued Anoro Ellipta 62.5-25 mcg/actuation blister with device 1 inh IH Q24H RF: 0 Eliquis 5 mg tablet 5 mg PO BID RF: 0 aspirin [Aspir-81] 81 MG tablet,delayed release (DR/EC) 81 mg PO DAILY RF: 0 lisinopril 2.5 mg tablet 5 mg PO DAILY RF: 0 ibuprofen 600 mg tablet 600 mg PO TID-QID PRN (Reason: pain) Qty: 60 RF: 3 albuterol sulfate 1.25 mg/3 mL Solution For Nebulization 1.25 mg inhalation PRN PRNRF: 0 polyethylene glycol 3350 17 gram Powder In Packet 17 g PO DAILY PRN PRN (Reason: Constipation) Qty: 1 RF: 2 Flovent HFA 220 mcg/actuation HFA aerosol inhaler 1 puff IH BID Qty: 1 RF: 3 albuterol sulfate [Ventolin HFA] 90 mcg/actuation HFA aerosol inhaler 2 puff IH Q6H PRNQty: 1 RF: 0 Discharge Instructions Instructions: COPD (Chronic Obstructive Pulmonary Disease) (DC), Bacterial Pneumonia (DC) Additional Instructions: You should plan to be off work for the next week. Be sure to get adequate rest and drink plenty of fluids. You can take Tylenol as needed for aches or pains. Report any fevers or worsening shortness of breath. Stand Alone Forms: Nursing Discharge Form Referrals: Susannah Malhotra [Primary Care Provider] - 10/15/20 9:50 am Activity:: Activity as Tolerated Equipment/Supplies:: No Equipment Needed Diet:: Normal Diet Discharge Orders Discharge Orders: Discharge Order (Routine); Ordered 10/05/20 Ordered By: Jermain Puri Other Ambulatory Orders: XR chest 2V PA & lateral (Routine) Timeframe: 2 Weeks Facility: [facility] - Location: DIAGNOSTIC IMAGING DEPT Ordered By: Jermain Puri DS: Summary Status at Discharge Functional status at discharge: independent ambulation Overall status at discharge: patient is progressing back to baseline Mental Status: mental status grossly normal Speech and Movement: speech and movement normal Mood: congruent mood Affect: normal affect Time Spent with Patient providing and/or coordinating discharge services: Less than 30 minutes Exam Psych Mental Status: mental status grossly normal Speech and Movement: speech and movement normal Mood: congruent mood Affect: normal affect DS: Data Vitals/I&O Vitals and I&O: Vital Signs Temperature 36.5 C 10/05/20 10:56 Temperature Source Temporal Artery Scan 10/05/20 10:56 Pulse 74 10/05/20 10:56 Pulse Rhythm Regular 10/05/20 08:40 Pulse 105 H 10/03/20 07:53 Respiratory Rate 18 10/05/20 10:56 Respiratory Effort Non-Labored 10/05/20 08:40 Respiratory Depth Normal 10/05/20 08:40 Respiratory Pattern Normal 10/05/20 08:40 Blood Pressure 121/89 10/05/20 10:56 Blood Pressure Mean 87 10/03/20 07:30 Blood Pressure Position Sitting 10/03/20 04:22 Pulse Oximetry 95 10/05/20 10:56 Oxygen Delivery Method Room Air 10/05/20 10:56 Oxygen Flow Rate 0 10/05/20 10:56 Fraction of Inspired Oxygen (FIO2) 21 10/04/20 19:40 Pain Level 0 10/05/20 10:56 Comment 10/04/20 14:41 Intake & Output 10/04/20 10/04/20 10/05/20 11:59 23:59 11:59 Intake Total 851.5 / 3012.5 2161.0 / 3012.5 460 / 460 Output Total 1150 / 3750 2600 / 3750 1475 / 1475 Balance -298.5 / -737.5 -439.0 / -737.5 -1015 / -1015 Intake: IV 371.5 / 852.5 481.0 / 852.5 100 / 100 Oral 480 / 2160 1680 / 2160 360 / 360 Output: Urine 1150 / 3750 2600 / 3750 1475 / 1475 Other: Urine Color Pale Pale Yellow Yellow Yellow Urine Appearance Clear Clear Clear Urine Odor Normal None Normal Comment Void x1 in the urinal. Void x1 in the urinal. Stool Size Moderate Stool Characteristics Soft Formed Brown Voiding Methods Urinal Urinal Toilet Data Completed and Pending Labs on day of discharge: Labs from last 24 hours 10/05/20 10/05/20 10/04/20 06:40 06:40 08:15 WBC 16.58 H RBC 4.15 L Hgb 12.1 L Hct 36.6 L MCV 88.2 MCH 29.2 MCHC 33.1 RDW 13.1 Plt Count 273 MPV 9.1 Immature Gran % 0.6 Neutrophils % 79.4 Lymphocytes % 11.3 Monocytes % 8.5 Eosinophils % 0.1 Basophils % 0.1 Nucleated RBC % 0 Absolute Neutrophils 13.16 H Absolute Lymphocytes 1.87 Absolute Monocytes 1.41 H Absolute Eosinophils 0.02 Absolute Basophils 0.02 Sodium 139 Potassium 4.0 Chloride 107 Carbon Dioxide 24.6 Anion Gap 7.4 BUN 22 H Creatinine 1.29 Estimated GFR/1.73 m2 55.56 Glucose 143 H Calcium 8.2 L SARS-CoV-2 (PCR) Negative Nasopharyn COVID-19 PCR Not Applicable Urine Legionella Ag Ref Test Perform Site [facility] 10/03/20 09:15 WBC RBC Hgb Hct MCV MCH MCHC RDW Plt Count MPV Immature Gran % Neutrophils % Lymphocytes % Monocytes % Eosinophils % Basophils % Nucleated RBC % Absolute Neutrophils Absolute Lymphocytes Absolute Monocytes Absolute Eosinophils Absolute Basophils Sodium Potassium Chloride Carbon Dioxide Anion Gap BUN Creatinine Estimated GFR/1.73 m2 Glucose Calcium SARS-CoV-2 (PCR) Nasopharyn COVID-19 PCR Urine Legionella Ag Negative Ref Test Perform Site Preliminary micro results at discharge 10/03/20 12:00 Sputum Culture - Preliminary Sputum Normal Kristie 10/03/20 05:06 Blood Culture - Preliminary Blood NO GROWTH 48 HOURS 10/03/20 04:45 Blood Culture - Preliminary Blood NO GROWTH 48 HOURS [facility] [place] Medical History (Updated 10/03/20 @ 11:12 by Jermain Puri) COPD (chronic obstructive pulmonary disease) COPD (chronic obstructive pulmonary disease) Emphysematous bleb of lung repeat cxr shows no signs of recurrence of PTX does have press assistant and feeder he follows up with. I did find an old CT chest and reviewed w/ him. Does show signif changes from COPD. signif blebs throughout entire lung. pt is not surgical candidate. cont pulm toilet no restrictions on activity at this time can use oil to remove tape residue. f/u w/ pulm to see if can find a better combo of inhalers to improve breathing HTN (hypertension) Ruptured emphysematous bleb on left lung Spontaneous pneumothorax Surgical History Arthroplasty of knee Colonoscopy - MAC (07/07/16) Social History Smoking/Tobacco Use Status: Former Tobacco Use Pack-years: 51 Tobacco: How many years used: 51 Smoking risk assessment performed?: Yes Alcohol Intake: current Alcohol Intake frequency: a few times a week Alcohol type: beer and hard liquor Drug use: Never Substance use type: does not use Household members: other Details: has a boarder to whom he rents a room Housing: house Current gender identity: male Do you feel safe at home: Yes Do you feel safe in your relationship?: Yes Additional Social history: 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
[2020-10-05 12:53] LABS: Streptococcus Pneumoniae Ag, U Negative (Negative)
--- NOTE | 2020-10-05 15:28 | PDOC.CMDIS ---
- If Service Date Differs Date of service: 10/05/20 Time of Service: 15:28 LACE Index Scoring Tool - Questions: Length of Stay (in days): 3 Acuity (Admit via E.D.?): Yes Comorbidities: Chronic Pulmonary Disease E.D. Visits: 1 - Answers: Total Score: 9 Risk of Readmission: Low Risk Care Management Discharge Reason for Hospitalization: SOB Discharge Plan: Jeremiah will return home with no addtional services at this time. He will transport home via private vehicle. He will follow up with his PCP and discharge plan of care. He is happy to be going home, and he is very happy to know that his Covid test result was negative. Patient/Family Education Needs: Review discharge instructions regarding activity levels and medications, discussion of self care needs including ask me three.
[2020-10-06 01:43] LABS: Mycoplasma Pneumoniae PCR Negative; Specimen source NASOPHARYNGEAL
== END 2020-10-05 14:56 | disposition home or self-care (01) | DRG 190 ==
LOC: ER 07:44 → MS 08:17
PROVIDERS: Admitting Provider Internal Medicine; Emergency Provider Student in an Organized Health Care Education/Training Program; PCP Family Medicine; Visit Provider Internal Medicine
DX: J44.0 Chronic obstructive pulmonary disease with (acute) lower respiratory infection (principal); J18.9 Pneumonia, unspecified organism; I10 Essential (primary) hypertension; J44.1 Chronic obstructive pulmonary disease with (acute) exacerbation; Z87.891 Personal history of nicotine dependence; Z86.711 Personal history of pulmonary embolism; Z79.01 Long term (current) use of anticoagulants
CPT/HCPCS: 36415; 71275; 80048; 80053; 82805; 84145; 87040; 87449; 87637; 93005; 94640; 96365; 96367; 96375; 99223; 99232; 99238; 99285; U0003; 71045; 81003; 83735; 83880; 84484; 85025; 85379; 85610; 85730; 86140; 87070; 87205; 87450; 87581; 93010; 94660; J2543; J2930; J3490; J7512; J7620

== ENCOUNTER 2020-10-19 01:18 | Outpatient (CLI) | payer MEDICARE, BC, SELFPAY ==
--- NOTE | 2020-10-19 08:52 | DI.RAD_ITS ---
EXAM: XR CHEST 2V PA LATERAL CLINICAL HISTORY: Follow-up of pneumonia,J18.9,J44.1,COPD TECHNIQUE: 2D digital imaging was performed. COMPARISON: CR,XR XR PORTABLE CHEST AP from 10/03/2020 FINDINGS: Heart size is normal. The lungs show fibrotic changes. No superimposed infiltrate, effusion or pulm onary edema is seen. IMPRESSION: . No acute abnormality.
== END 2020-10-19 01:38 ==
PROVIDERS: PCP Family Medicine; Visit Provider Internal Medicine
DX: J18.9 Pneumonia, unspecified organism (principal); J44.1 Chronic obstructive pulmonary disease with (acute) exacerbation
CPT/HCPCS: 71046

== ENCOUNTER 2020-11-19 14:39 | Outpatient (REF) | payer MEDICARE, BC, SELFPAY ==
[2020-11-21 15:24] LABS: COVID-19 RT-PCR UVMMC Result Negative (Negative)
== END 2020-11-19 14:40 | disposition home or self-care (01) ==
LOC: NCHCN 14:39
PROVIDERS: PCP Family Medicine; Visit Provider Family Medicine
DX: R05 Cough (principal)
CPT/HCPCS: U0003

== ENCOUNTER 2020-11-21 21:19 | Inpatient (IN) | payer MEDICARE, BC, SELFPAY ==
--- NOTE | 2020-11-21 21:00 | RT.EKG_ITS ---
APPROVED REPORT Exam: Resting ECG Patient Location: E HR:106 bpm ECG Measurements Heart Rate 106 AXIS WI 142 P 48 QRSd 97 QRS 90 QT 338 T 30 QTc 448 Conclusion Sinus tachycardia...rate> 99 motion artifact but no apparent st t wave ischemic changes
[2020-11-21 21:20] VITALS: BP 118/83; PULSE 119; RESP 24; TEMP 36.2; O2SAT 85
--- NOTE | 2020-11-21 21:30 | DI.CT_ITS ---
EXAM: CT CHEST PE CTA CLINICAL HISTORY: shortness of breath, hx of PE. TECHNIQUE: Imaging Protocol: CT angiography of the chest was performed using pulmonary embolus robin col. Multi planar reconstructions were performed. CONTRAST MATERIAL: Intravenous: Omnipaque 350 Contrast volume: 85 cc COMPARISON: CT CT CHEST PE CTA from 10/03/2020 FINDINGS: CHEST: PULMONARY ARTERIES: There is subtle pulmonary emboli evident in the right lower lobe segmental branch es and subsegmental branches. Also intraluminal filling defects seen in the left lung lower lobe seg ment. No emboli seen in the main central pulmonary arteries. LUNGS: Severe emphysematous changes again noted but there is now significant infiltrate evident throu ghout most lobes but all lobes of the right lung, both interstitial and confluent and there is small amount of right pleural fluid now evident posteriorly over the right upper lobe which was not evident previously. The left lung is relatively clear and there is no pleural fluid on the left side. MEDIASTINUM: There is no hilar nor mediastinal adenopathy. Small subcarinal lymph nodes are noted. N o axillary adenopathy. Visualized thyroid unremarkable. CARDIAC: Heart size is normal. There is no pericardial effusion.Caliber of the thoracic aorta is wit hin normal limits. There is slight shift of the interventricular septum indicating element of right heart strain. Coronary artery calcification is noted. PARTIALLY VISUALIZED UPPERMOST ABDOMEN: No adrenal masses. Hepatic cysts again noted. Tiny calcific ation in the gallbladder fundus noted. OSSEOUS: No significant osseous lesions.. IMPRESSION: 1. Bilateral segmental and subsegmental pulmonary emboli. No obvious pulmonary infarction.Mild promi nence of the right ventricle indicating an element of right heart strain. 2. Severe COPD-emphysematous changes and there is extensive new infiltrate throughout the right lung with relative sparing of the opposite-left lung. There is a small right pleural effusion. No left p leural effusion. Covid-19 testing recommended. 3. Tiny calcification noted in the gallbladder fundus. Hepatic cysts again noted. RADIATION DOSE DELIVERED: LINK-TO-SR Total DLP DATA REPOSITORY: All CT scans at this facility are submitted to the National Radiology Data Registry (NRDR) Dose Index Registry (DIR) with the [employer] (ACR). RADIATION OPTIMIZATION: All CT scans at this facility use at least one of these dose optimization te chniques: automated exposure control; mA and/or kV adjustment per patient size (includes targeted exa ms where dose is matched to clinical indication); or iterative reconstruction.
--- NOTE | 2020-11-21 21:31 | ED.GENADUL_ITS ---
Discharge Plan Disposition Patient Disposition: [facility] INPATIENT Condition: Improving Discharge Details Chief Complaint: SOB Clinical Impression: COPD exacerbation, Pneumonia, Pulmonary embolism Primary Care Provider: Susannah Malhotra ED Provider: Pablo Cameron Home Meds and New Rx's Prescriptions: No Action Anoro Ellipta 62.5-25 mcg/actuation blister with device 1 inh IH Q24H RF: 0 Eliquis 5 mg tablet 5 mg PO BID RF: 0 aspirin [Aspir-81] 81 MG tablet,delayed release (DR/EC) 81 mg PO DAILY RF: 0 lisinopril 2.5 mg tablet 5 mg PO DAILY RF: 0 ibuprofen 600 mg tablet 600 mg PO TID-QID PRN (Reason: pain) Qty: 60 RF: 3 albuterol sulfate 1.25 mg/3 mL Solution For Nebulization 1.25 mg inhalation PRN PRNRF: 0 polyethylene glycol 3350 17 gram Powder In Packet 17 g PO DAILY PRN PRN (Reason: Constipation) Qty: 1 RF: 2 Flovent HFA 220 mcg/actuation HFA aerosol inhaler 1 puff IH BID Qty: 1 RF: 3 albuterol sulfate [Ventolin HFA] 90 mcg/actuation HFA aerosol inhaler 2 puff IH Q6H PRNQty: 1 RF: 0 Eliquis 5 mg tablet 5 mg PO ONCE RF: 0 amoxicillin-pot clavulanate 875-125 mg tablet 1 tab PO BID RF: 0 Medical Decision Making 65 yo male with hx of copd and is a former smoker who quit over 2 years ago, prior PE, htn, who comes in with chief complaint of worsening shortness of breath over several days. He was admitted for copd exacerbation and pneumonia in September and had been doing well until last week and started to have slowly worsening dyspnea. SAw pcp and on Sunday was started on augmentin for pneumonia per patient and despite this has been having worsening dyspnea and decided to call ems. He denies chest pain/pressure, fevers, chills, abdominal pain, leg swelling. He arrives tachypneic speaking in 3-4 word sentences. Has wheezing throughout both lungs in all reid on exam. No leg tenderness or calf tenderness. He states he has only been taking eliquis 1 time a day instead of 2 since Sunday based on recs from his pcp. I suspect he is having a copd exacerbation and will treat with steroids and duonebs. Given his history will obtain CTA to evaluate for PE and pneumonia. No chest pain or pressure so doubt acs no apparent st t wave changes on ecg, will obtain troponin. pt's labs unremarkable, he does feel improved with treatments remains hemodynamically stable. CTA shows small PE's and also recurrent right sided infiltrate. Discussed with Dr. Garcia and will initiate zosyn and doxycycline for the pneumonia, and Dr. Garcia is going to admit and decide on treatment of the PE with either apixaban (patient had been on once a day dosing) vs lovenox Differential Diagnosis Differential Diagnosis: pe, pna, copd Medical Records Medical records reviewed: Yes I reviewed the patient's medical records. Imaging Data Radiologic Study: Attestation: I personally reviewed and interpreted this imaging study as follows: Imaging: CT Scan Radiologist's impression: IMPRESSION: 1. New segmental and subsegmental basilar lower lobe pulmonary emboli as described above. 2. Findings of right heart strain, which were present on prior study as well. 3. Increased multifocal patchy and nodular airspace opacities within the right lung with surrounding ground-glass opacities suggesting pneumonia. Imaging features can be seen with COVID-19 pneumonia, though are nonspecific and can occur with a variety of infectious and noninfectious processes. (Reference: [place]) 4. New small freely layering right pleural effusion. 5. Moderate emphysema. Lab Data Lab results reviewed: Yes I reviewed the patient's lab results. ECG Data Attestation: I personally reviewed and interpreted this ECG (s) as follows: Prior ECG tracings: available for review Interpretation: sinus tachycardia, rate of 106, pr 142, motion artifact but no apparent acute st t wave ischemic findings HPI General Mode of arrival: EMS . Date/Time Provider Initiated Documentation: 11/21/20 21:29 . Limitations to Documentation: no limitations . Information obtained by: patient . History of Present Illness 65 year old M presents to the emergency department with the chief complaint of shortness of breath, described as moderate, Patient started experiencing this day(s) (4) and it has been constant. Rest improves symptom(s), Movement worsens symptoms . Patient notes denies chest pain and fever/chills. Related Data Home Medications Medication Instructions Recorded Confirmed aspirin [Aspir-81] 81 mg PO DAILY tab-cap 06/15/16 11/21/20 ibuprofen 600 mg PO TID-QID PRN #60 tab 02/28/19 11/21/20 lisinopril 2.5 mg tablet 5 mg PO DAILY tab-cap 03/06/19 11/21/20 umeclidinium 62.5 mcg-vilanterol 1 inh IH Q24H 03/06/19 11/21/20 25 mcg/actuation powdr for inhalation Flovent HFA 1 puff IH BID #1 inh 03/17/19 10/03/20 polyethylene glycol 3350 17 g PO DAILY PRN PRN #1 ea 03/17/19 11/21/20 albuterol sulfate 1.25 mg INHALATION PRN PRN 06/23/19 11/21/20 apixaban 5 mg tablet 5 mg PO BID 07/30/19 11/21/20 albuterol sulfate [Ventolin HFA] 2 puff IH Q6H PRN #1 inh 10/05/20 11/21/20 amoxicillin-pot clavulanate 1 tab PO BID 11/21/20 11/21/20 apixaban [Eliquis] 5 mg PO ONCE 11/21/20 11/21/20 Previous Rx's Medication Instructions Recorded ibuprofen 600 mg PO TID-QID PRN #60 tab 02/28/19 Flovent HFA 1 puff IH BID #1 inh 03/17/19 polyethylene glycol 3350 17 g PO DAILY PRN PRN #1 ea 03/17/19 albuterol sulfate [Ventolin HFA] 2 puff IH Q6H PRN #1 inh 10/05/20 Allergies Allergy/AdvReac Type Severity Reaction Status Date / Time No Known Allergies Allergy Verified 06/23/20 10:05 General Stated Complaint: SOB JUANA: 2 Review of Systems All systems reviewed & are unremarkable except as noted in HPI and below Constitutional Constitutional: Denies chills and Denies fever(s) Cardiovascular Cardiovascular: Denies chest pain Gastrointestinal Gastrointestinal: Denies abdominal pain, Denies nausea and Denies vomiting [facility] Medical History (Updated 11/21/20 @ 22:54 by Pablo Cameron MD) COPD (chronic obstructive pulmonary disease) COPD (chronic obstructive pulmonary disease) Emphysematous bleb of lung repeat cxr shows no signs of recurrence of PTX does have vehicle technician he follows up with. I did find an old CT chest and reviewed w/ him. Does show signif changes from COPD. signif blebs throughout entire lung. pt is not surgical candidate. cont pulm toilet no restrictions on activity at this time can use oil to remove tape residue. f/u w/ pulm to see if can find a better combo of inhalers to improve breathi ng HTN (hypertension) Ruptured emphysematous bleb on left lung Spontaneous pneumothorax Surgical History Arthroplasty of knee Colonoscopy - MAC (07/07/16) Social History Smoking/Tobacco Use Status: Former Tobacco Use Pack-years: 51 Tobacco: How many years used: 51 Smoking risk assessment performed?: Yes Alcohol Intake: current Alcohol Intake frequency: a few times a week Alcohol type: beer and hard liquor Drug use: Never Substance use type: does not use Household members: other Details: has a boarder to whom he rents a room Housing: house Current gender identity: male Do you feel safe at home: Yes Do you feel safe in your relationship?: Yes Additional Social history: 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[employer]; 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 Exam Const General: ill appearing Orientation: alert HENMT Head: normal to inspection Ears: external ears normal General nose exam: external nose normal Mouth: moist mucous membranes Eyes General: appearance normal, both eyes and all related structures Neck Neck: normal visual inspection Resp Effort & Inspection: audible wheezes Cardio Rate: regular rate Skin General skin exam: no rashes or lesions noted Neuro General: patient alert and patient oriented x3 Extrem General: normal to inspection Psych Mental Status: mental status grossly normal Course Vital Signs Vital signs: Vital Signs Temperature 36.2 C L 11/21/20 21:20 Pulse 119 H 11/21/20 21:20 Respiratory Rate 24 11/21/20 21:20 Blood Pressure 118/83 11/21/20 21:20 Pulse Oximetry 85 L 11/21/20 21:20 Temperature 36.2 C L 11/21/20 21:20 Temperature Source Tympanic 11/21/20 21:20 Pulse 119 H 11/21/20 21:20 Respiratory Rate 24 11/21/20 21:20 Respiratory Effort 11/21/20 21:20 Blood Pressure 118/83 11/21/20 21:20 Blood Pressure Position Sitting 11/21/20 21:20 Pulse Oximetry 85 L 11/21/20 21:20 Oxygen Delivery Method Room Air 11/21/20 21:20 Oxygen Flow Rate 0 11/21/20 21:20
[2020-11-21 21:36] LABS: BE (Venous) 0 mmol/L (-2-3); HCO3 (Venous) 24 mmol/L (23-28); O2 Sat (Venous) 92 %; TCO2 (Venous) 21 mmol/L (24-29); pCO2 (Venous) 33 mmHg (41-51); pH (Venous) 7.47 (7.31-7.41); pO2 (Venous) 60 mmHg
[2020-11-21 21:37] LABS: Abs Immature Grans 0.06 10^3/uL (0.0-0.06); Absolute Eosinophil Count 0.46 10^3/uL (0.0-0.7); Basophils % 0.7; Eosinophils % 3.4; HCT 40.4 % (40.0-50.0); HGB 13.4 g/dL (13.5-17.5); Immature Grans % 0.4; Lymphocytes % 13.6; MCH 28.6 pg (27.0-33.0); MCHC 33.2 % (32.0-36.0); MCV 86.1 fL (80-95); MPV 8.5 fL (8.0-11.0); Monocytes % 11.9; Nucleated RBC 0 %; Platelet Count 218 10^3/uL (130-400); RBC 4.69 10^6/uL (4.36-5.78); RDW 12.3 % (11.8-14.1); RDW-SD 38.9 fL; WBC 13.48 10^3/uL (4.4-10.8)
[2020-11-21 21:40] VITALS: O2SAT 94
[2020-11-21 21:41] LABS: Absolute Basophil Count 0.09 10^3/uL (0.0-0.2); Absolute Lymphocyte Count 1.83 10^3/uL (1.2-3.4); Absolute Neutrophil Count 9.44 10^3/uL (1.2-6.7)
[2020-11-21] MEDS: Omnipaque 350 MG/ML 100 ML BTL IJ (21:45)
[2020-11-21] MEDS: methylPREDNISolone SUCC 125 MG VIAL IVP (21:47)
--- NOTE | 2020-11-21 21:48 | NUR.NOTE ---
Nursing Note: pt brought to CT, to give neb treatment when return to ED. pt remains on 1 L NC per MD
[2020-11-21 21:50] LABS: Diff Comment Agrees w/ Instrument; INR 1.5 (0.9-1.1); PTT Activated 28.6 sec (21.0-27.5); Prothrombin Time 14.5 sec (9.3-11.0); RBC Morphology Normal
[2020-11-21 21:54] LABS: ALT 17 U/L (16-63); AST 15 U/L (15-37); Albumin 2.9 g/dL (3.4-5.0); Alkaline Phosphatase 75 U/L (46-116); Anion Gap 12.6 mmol/L (3-11); BUN 13 mg/dL (7-18); Bilirubin, Total 0.6 mg/dL (0.2-1.0); CO2 22.4 mmol/L (21.0-32.0); CREATININE 1.2 mg/dL (0.70-1.30); Calcium 8.8 mg/dL (8.5-10.1); Chloride 99 mmol/L (98-107); Glucose 114 mg/dL (74-106); Magnesium 1.8 mg/dL (1.8-2.4); Potassium 3.7 mmol/L (3.5-5.1); Sodium 134 mmol/L (136-145); Total Protein 7.7 g/dL (6.4-8.2)
[2020-11-21 21:55] LABS: Troponin I < 0.05 ng/mL (<0.06)
[2020-11-21] MEDS: Normal Saline - Diluent 50 ML VIAL IV (21:55)
[2020-11-21] MEDS: Normal Saline Flush 10 ML SYR IVP (22:00)
[2020-11-21 22:03] VITALS: RESP 7
[2020-11-21] MEDS: Albuterol/Ipratropium 3 ML UPD VIAL UPD (22:03)
[2020-11-21 22:05] VITALS: BP 119/81; PULSE 98; O2SAT 94
[2020-11-21 22:17] LABS: Source Nasopharynx
--- NOTE | 2020-11-21 22:39 | DI.VRAD_ITS ---
PROCEDURE INFORMATION: Exam: CT Angiography Chest With Contrast Exam date and time: 11/21/2020 9:53 PM Age: 65 years old Clinical indication: Patient HX: Shortness of breath, HX of pe TECHNIQUE: Imaging protocol: Computed tomographic angiography of the chest with contrast. 3D rendering (Not supervised by radiologist): MIP and/or 3D reconstructed images were created by the technologist. Radiation optimization: All CT scans at this facility use at least one of these dose optimization techniques: automated exposure control; mA and/or kV adjustment per patient size (includes targeted exams where dose is matched to clinical indication); or iterative reconstruction. Contrast material: OMNIPAQUE 350; Contrast volume: 85 ml; Contrast route: INTRAVENOUS (IV); COMPARISON: CT CHEST PE CTA 10/03/2020 5:41 AM FINDINGS: Pulmonary arteries: There is a new segmental pulmonary embolism within the origin of the posterolateral basilar segmental right lower lobe pulmonary arterial branch on image 365, series 5. There is a new subsegmental acute pulmonary embolism within the posteromedial basilar segment of the right lower lobe, as seen on image 377, series 5. There are new subsegmental pulmonary emboli within the anterolateral basilar segment of the left lower lobe around axial image 391, series 5. The pulmonary arteries are not dilated. Aorta: Unremarkable. No aortic aneurysm. No aortic dissection. Lungs: Again noted are changes of moderate centrilobular emphysema. There are increased irregular patchy and nodular branching consolidative opacities within the right lung, most marked within the posterior base of the right lower lobe and along the lateral segment of the right middle lobe, suggesting bronchopneumonia. There is surrounding ground-glass and reticular opacity as well, new since prior study, consistent with pneumonitis. Pleural spaces: There is a small free layering right pleural effusion which is new since prior study. No left pleural effusion is identified. Heart: The right ventricular to left ventricular ratio is 1.30, which is elevated, but is similar to prior study. Heart size is within normal limits. There is no pericardial effusion. Mediastinal space: There is a small sliding hiatal hernia, as on prior study. Lymph nodes: Again noted are scattered prominent subcentimeter mediastinal lymph nodes, likely reactive. Liver: Again noted are a few small liver cysts. Gallbladder and bile ducts: There is focal calcification of the gallbladder fundus, which may be sequela of prior inflammation. Spleen: There are a few tiny splenic calcifications, as on prior study, suggesting old granulomatous disease. Bones/joints: Again noted is multilevel moderate spondylosis of the lower thoracic spine. No acute fractures identified. Soft tissues: Unremarkable. IMPRESSION: 1. New segmental and subsegmental basilar lower lobe pulmonary emboli as described above. 2. Findings of right heart strain, which were present on prior study as well. 3. Increased multifocal patchy and nodular airspace opacities within the right lung with surrounding ground-glass opacities suggesting pneumonia. Imaging features can be seen with COVID-19 pneumonia, though are nonspecific and can occur with a variety of infectious and noninfectious processes. (Reference: Toro) 4. New small freely layering right pleural effusion. 5. Moderate emphysema. COMMENTS: THIS REPORT CONTAINS FINDINGS THAT MAY BE CRITICAL TO PATIENT CARE. The exam findings were verbally communicated by me to Pablo Cameron via telephone conference at 10:36 PM EST on 11/21/2020. The findings were acknowledged and understood. REFERENCES: Toro Dietz, et al., Radiological Society of [place] Expert Consensus Statement on Reporting Chest CT Findings Related to COVID-19. Endorsed by the Society of Thoracic Radiology, the [place] [employer], and RSNA. Published December 31, 2019. Dictated and Authenticated by: Fazal Gallardo MD. Ordering:CARON Shah MD
--- NOTE | 2020-11-21 22:47 | W.PM.HP.N ---
Date of service: 11/21/20 Time of Service: 22:47 Assessment and Plan Assessment and plan (1) Pneumonia: Status: Acute Assessment and plan: Pneumonia. Given recent hospitalization will treat with Zosyn, along with atypical coverage; doubt Staph pneumonia so I don't see that Vanco is required at present. Probably element of COPD as well so will continue bronchodilators and steroids. Will await Covid, but states he uses good precautions. As to new emboli, unclear whether the reduced dose of DOAC is to be considered at fault or if this is to be considered outright treatment failure. In any case given that this would apparently constitute second episode will warrant rodent exterminator prophylaxis.. Given uncertainty around dosing I think for now will simply resume normal full dose (5 bid Eliquis), but probably doesn't call for full re-loading given that there is some drug on board.. History of Present Illness History of Present Illness Chief Complaint: cough, SOB Narrative: 65 male with h/o COPD, here in September with pneumonia. Also has h/o PE in 2018, apparently dose of DOAC was reduced sometime last week. Comes in with 4-5 days of productive cough, blood tinged, and SOB. Started on Augmentin days MOCCASIN SEWER but here with persistent symptoms. In ER findings of note for absence of fever, wheezing, white count of 13 and CTA showing consolidation and ground glass opacities on right, as well as multiple new emboli on right. Has received duoneb, solumedrol and is ordered for Zosyn and Doxy. Covid is pending. Is admitted for further management. Review of Systems All systems reviewed & are unremarkable except as noted in HPI and below PFSH Medical History (Updated 11/21/20 @ 22:56 by Alber Garcia MD) COPD (chronic obstructive pulmonary disease) COPD (chronic obstructive pulmonary disease) Emphysematous bleb of lung repeat cxr shows no signs of recurrence of PTX does have cardiac/vascular sonographer he follows up with. I did find an old CT chest and reviewed w/ him. Does show signif changes from COPD. signif blebs throughout entire lung. pt is not surgical candidate. cont pulm toilet no restrictions on activity at this time can use oil to remove tape residue. f/u w/ pulm to see if can find a better combo of inhalers to improve breathing HTN (hypertension) Ruptured emphysematous bleb on left lung Spontaneous pneumothorax Surgical History Arthroplasty of knee Colonoscopy - MAC (07/07/16) Social History Smoking/Tobacco Use Status: Former Tobacco Use Pack-years: 51 Tobacco: How many years used: 51 Smoking risk assessment performed?: Yes Alcohol Intake: current Alcohol Intake frequency: a few times a week Alcohol type: beer and hard liquor Drug use: Never Substance use type: does not use Household members: other Details: has a boarder to whom he rents a room Housing: house Current gender identity: male Do you feel safe at home: Yes Do you feel safe in your relationship?: Yes 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[employer]; 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 Meds Home Medications and Allergies Home Medications Medication Instructions Recorded Confirmed Type aspirin [Aspir-81] 81 mg PO DAILY tab-cap 06/15/16 11/21/20 History ibuprofen 600 mg PO TID-QID PRN #60 tab 02/28/19 11/21/20 Rx lisinopril 2.5 mg tablet 5 mg PO DAILY tab-cap 03/06/19 11/21/20 History umeclidinium 62.5 mcg-vilanterol 1 inh IH Q24H 03/06/19 11/21/20 History 25 mcg/actuation powdr for inhalation Flovent HFA 1 puff IH BID #1 inh 03/17/19 10/03/20 Rx polyethylene glycol 3350 17 g PO DAILY PRN PRN #1 ea 03/17/19 11/21/20 Rx albuterol sulfate 1.25 mg INHALATION PRN PRN 06/23/19 11/21/20 History apixaban 5 mg tablet 5 mg PO BID 07/30/19 11/21/20 History albuterol sulfate [Ventolin HFA] 2 puff IH Q6H PRN #1 inh 10/05/20 11/21/20 Rx amoxicillin-pot clavulanate 1 tab PO BID 11/21/20 11/21/20 History apixaban [Eliquis] 5 mg PO ONCE 11/21/20 11/21/20 History Allergies Allergy/AdvReac Type Severity Reaction Status Date / Time No Known Allergies Allergy Verified 06/23/20 10:05 Exam Narrative Exam Narrative: 119/81, 98, 36.2, 18, 94%. HEENT atraumatic; neck supple; lungs fine rales right base, with egophany and increased tactile fremitus; heart distant but RRR; abdomen soft and NT; extremities trace pedal edema; neuro Ox3, moves all 4s. Results Labs Result diagrams: 11/21/20 21:30 11/21/20 21:30 Labs: Laboratory Results - last 24 hr 11/21/20 11/21/20 11/21/20 21:30 21:30 21:30 WBC 13.48 H RBC 4.69 Hgb 13.4 L Hct 40.4 MCV 86.1 MCH 28.6 MCHC 33.2 RDW 12.3 Plt Count 218 MPV 8.5 Immature Gran % 0.4 Neutrophils % 70.0 Lymphocytes % 13.6 Monocytes % 11.9 Eosinophils % 3.4 Basophils % 0.7 Nucleated RBC % 0 Absolute Neutrophils 9.44 H Absolute Lymphocytes 1.83 Absolute Monocytes 1.60 H Absolute Eosinophils 0.46 Absolute Basophils 0.09 RBC Morphology Normal PT 14.5 H INR 1.5 H APTT 28.6 H VBG pH VBG pCO2 VBG pO2 VBG HCO3 VBG Total CO2 VBG O2 Saturation VBG Base Excess Sodium 134 L Potassium 3.7 Chloride 99 Carbon Dioxide 22.4 Anion Gap 12.6 H BUN 13 Creatinine 1.2 Estimated GFR/1.73 m2 >= 60.00 Glucose 114 H Calcium 8.8 Magnesium 1.8 Total Bilirubin 0.6 AST 15 ALT 17 Alkaline Phosphatase 75 Troponin I < 0.05 Total Protein 7.7 Albumin 2.9 L 11/21/20 21:30 WBC RBC Hgb Hct MCV MCH MCHC RDW Plt Count MPV Immature Gran % Neutrophils % Lymphocytes % Monocytes % Eosinophils % Basophils % Nucleated RBC % Absolute Neutrophils Absolute Lymphocytes Absolute Monocytes Absolute Eosinophils Absolute Basophils RBC Morphology PT INR APTT VBG pH 7.47 H VBG pCO2 33 L VBG pO2 60 VBG HCO3 24 VBG Total CO2 21 L VBG O2 Saturation 92 VBG Base Excess 0 Sodium Potassium Chloride Carbon Dioxide Anion Gap BUN Creatinine Estimated GFR/1.73 m2 Glucose Calcium Magnesium Total Bilirubin AST ALT Alkaline Phosphatase Troponin I Total Protein Albumin Last Vital Signs Temp 36.2 C L 11/21/20 21:20 Pulse 98 H 11/21/20 22:05 Resp 24 11/21/20 21:20 BP 119/81 11/21/20 22:05 Pulse Ox 94 11/21/20 22:05 COVID-19 Screening Have you, or household traveled for leisure in last 14 days?: No Had IN PERSON contact w/suspected or confirmed C-19 person: No
[2020-11-21 22:54] LABS: COVID-19 PCR Negative (Negative); Influenza A PCR Negative (Negative); Influenza B PCR Negative (Negative); RSV PCR Negative (Negative)
[2020-11-21] MEDS: PIPERACILLIN/TAZO 4.5 GM in Normal Saline 100 ML IVPB (22:55)
[2020-11-21] MEDS: Doxycycline Hyclate 100 MG CAP PO (22:55)
[2020-11-22 00:46] LABS: Troponin I < 0.05 ng/mL (<0.06)
[2020-11-22 00:55] VITALS: BP 130/88; PULSE 95; RESP 18; TEMP 36.6; O2SAT 90
[2020-11-22] MEDS: Apixaban 5 MG TAB PO (01:19)
[2020-11-22] MEDS: Normal Saline Flush 10 ML SYR IVP ×7 (04:01→21:53)
[2020-11-22] MEDS: PIPERACILLIN/TAZO 3.375 GM in Normal Saline 50 ML IVPB ×4 (04:01→21:53)
[2020-11-22] MEDS: methylPREDNISolone SUCC 40 MG VIAL IVP ×3 (06:21→21:53)
[2020-11-22 07:58] VITALS: BP 128/79; PULSE 71; RESP 18; TEMP 35.8; O2SAT 92
[2020-11-22] MEDS: Apixaban 5 MG TAB 10 MG PO ×2 (08:50→20:14)
[2020-11-22] MEDS: Lisinopril 5 MG TAB PO (08:51)
[2020-11-22] MEDS: Aspirin E.C. 81 MG TABEC PO (08:51)
--- NOTE | 2020-11-22 09:49 | W.PM.PROGNOT ---
Date of Service Date of service: 11/22/20 Time of Service: 11:22 Assessment and Plan Assessment and plan (1) Pneumonia: Status: Acute Assessment and plan: CT chest shows: Severe COPD-emphysematous changes and there is extensive new infiltrate throughout the right lung with relative sparing of the opposite-left lung. He has SOB with activity and intermittent SOB at rest. + Productive cough, no wheezing. COVID-19 negative. Leukocytosis to 13.48. He is on Zosyn and Doxy, day #1. Continue IV methylprednisone and PRN nebs. Monitor blood cultures, repeat CBC tomorrow. 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 He has been on Apixiban, recently decreased from 5 mg BID to [address] shows bilateral segmental and subsegmental pulmonary emboli without obvious infarction. Mild prominence of the right ventricle indicating an element of right heart strain. Apixiban dose increased to 10 mg BID x7 days, then resume 5 mg BID. (3) COPD exacerbation: Status: Acute Assessment and plan: As above. (4) HTN (hypertension): Status: Chronic Assessment and plan: Blood pressure well controlled. Continue lisinopril 5 mg daily. Monitor renal function. (5) DVT prophylaxis: Status: Acute Assessment and plan: Continue Apixiban. (6) Discharge planning issues: Status: Acute Assessment and plan: CODE status addressed, he remains a FULL code. His daughter is his health care agent. Subjective Subjective Interval history since last seen: Jeremiah reports feeling fatigued today, he did not sleep well last night. He saw his PCP last Sunday, 3 days ago. He reported to her that he was coughing up blood and having difficulty breathing. At that time, she started him on Augmentin and decreased his Apixiban to once daily. His COVID-19 testing was negative. He reports that his breathing is getting better today. He continues to have SOB with activity, none at rest. Ambulating to the BR fatigues him, this is not his baseline. He reports blood tinged sputum with coughing. He does not have oxygen at home. He denies wheezing. No CP/pressure or palpitations. His appetite is improving, he is eating and drinking and tolerating his diet. He denies nausea, vomiting or diarrhea. His bowels are moving normally. CODE status addressed, he is a FULL code. Exam Narrative Exam Narrative: General: 65 year old man, sitting up in bed, appears fatigued. Pleasant and talkative, answers questions appropriately. HEENT: normocephalic, atraumatic, pupils equal and round, mucous membranes moist. Neck: supple, no JVD. Cardiovascular: heart sounds regular, nontachycardic. Respiratory: wearing oxygen, appears to have mildly increased work of breathing at rest, lung sounds diminished throughout with rales to the right base. No wheezing. GI: round, soft, nontender on palpation, non distended, +BS. Extremities: no edema, moves all extremities freely. Objective Last Vital Signs Temp 35.8 C L 11/22/20 07:58 Pulse 71 11/22/20 07:58 Resp 18 11/22/20 07:58 BP 128/79 11/22/20 07:58 Pulse Ox 92 11/22/20 07:58 Laboratory Results - last 24 hr 11/21/20 11/21/20 11/21/20 21:30 21:30 21:30 WBC 13.48 H RBC 4.69 Hgb 13.4 L Hct 40.4 MCV 86.1 MCH 28.6 MCHC 33.2 RDW 12.3 Plt Count 218 MPV 8.5 Immature Gran % 0.4 Neutrophils % 70.0 Lymphocytes % 13.6 Monocytes % 11.9 Eosinophils % 3.4 Basophils % 0.7 Nucleated RBC % 0 Absolute Neutrophils 9.44 H Absolute Lymphocytes 1.83 Absolute Monocytes 1.60 H Absolute Eosinophils 0.46 Absolute Basophils 0.09 RBC Morphology Normal PT 14.5 H INR 1.5 H APTT 28.6 H VBG pH VBG pCO2 VBG pO2 VBG HCO3 VBG Total CO2 VBG O2 Saturation VBG Base Excess Sodium 134 L Potassium 3.7 Chloride 99 Carbon Dioxide 22.4 Anion Gap 12.6 H BUN 13 Creatinine 1.2 Estimated GFR/1.73 m2 >= 60.00 Glucose 114 H Calcium 8.8 Magnesium 1.8 Total Bilirubin 0.6 AST 15 ALT 17 Alkaline Phosphatase 75 Troponin I < 0.05 Total Protein 7.7 Albumin 2.9 L COVID-19 Source SARS-CoV-2 (PCR) Influenza Type A (PCR) Influenza Type B (PCR) RSV (PCR) 0211/21/20 11/22/20 21:30 21:40 00:25 WBC RBC Hgb Hct MCV MCH MCHC RDW Plt Count MPV Immature Gran % Neutrophils % Lymphocytes % Monocytes % Eosinophils % Basophils % Nucleated RBC % Absolute Neutrophils Absolute Lymphocytes Absolute Monocytes Absolute Eosinophils Absolute Basophils RBC Morphology PT INR APTT VBG pH 7.47 H VBG pCO2 33 L VBG pO2 60 VBG HCO3 24 VBG Total CO2 21 L VBG O2 Saturation 92 VBG Base Excess 0 Sodium Potassium Chloride Carbon Dioxide Anion Gap BUN Creatinine Estimated GFR/1.73 m2 Glucose Calcium Magnesium Total Bilirubin AST ALT Alkaline Phosphatase Troponin I < 0.05 Total Protein Albumin COVID-19 Source Nasopharynx SARS-CoV-2 (PCR) Negative Influenza Type A (PCR) Negative Influenza Type B (PCR) Negative RSV (PCR) Negative
--- NOTE | 2020-11-22 11:12 | RESPIRATORY ---
Pt uses own CPAP machine at home, which he owns out-right and gets supplies through [employer]. Machine is currently not here at the hospital with him. Moni reported that his unit is a Respironics System One, set to Auto-titrate CPAP Min 6 / Max 16 cmH2O, no O2 bleed in, Medium face mask. Pt reported this morning that he has not used his machine for about a week because the tubing needs to be replaced. RT called [employer], the company stated that the patient needs a new prescription for supplies as his is . Moni stated that the prescription can be from either the discharging hospitalist or the patient's primary care provider.
--- NOTE | 2020-11-22 12:58 | W.NUTRFU ---
Date of service: 11/22/20 Time of Service: 12:58 Nutritional Follow up NOTE: 65 year old male admitted with PNA with hx of COPD with elevated BMI. Following Regular diet with excellent intake. Not considered at nutritional risk. Will continue to follow. Time Spent in Nutritional Counseling and Treatment: 0
[2020-11-22] MEDS: DOXYCYCLINE 100 MG in Normal Saline 100 ML IVPB ×2 (13:11→23:27)
[2020-11-22 15:29] VITALS: BP 100/64; PULSE 77; RESP 22; TEMP 36.3; O2SAT 91
--- NOTE | 2020-11-22 19:32 | INITIAL_ITS ---
- If Service Date Differs Date of service: 11/22/20 Time of Service: 19:32 Care Management Initial Assess REASON FOR HOSPITALIZATION:: PNA, PE PAST MEDICAL HISTORY/PAST SURGICAL HISTORY:: Medical History. COPD (chronic obstructive pulmonary disease). COPD (chronic obstructive pulmonary disease). Emphysematous bleb of lung. repeat cxr shows no signs of recurrence of PTX. 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 I did find an old CT chest and revi ewed w/ him. Does show signif changes from COPD. signif blebs throughout entire lung. pt is not surgical candidate. cont pulm toilet. no restrictions on activity at this time. can use oil to remove tape residue. f/u w/ pulm to see if can find a better combo of inhalers to improve breathing. HTN (hypertension). Ruptured emphysematous bleb. on left lung. Spontaneous pneumothorax. Surgical History. Arthroplasty of knee. Colonoscopy - [facility] [place] (07/07/16) PREVIOUS FUNCTIONAL STATUS/SOCIAL/FAMILY SUPPORTS:: Jeremiah is currently living with his daughter, , in [place]. He reported that he has lived with her since shortly after his COPD diagnosis. He is planning on [facility] after this admission. He has already signed the lease and is ready to live on his own again. He has a good relationship with his daughter, who is his only child. 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 He is independent with his ADL's. CURRENT FUNCTIONAL STATUS:: Jeremiah was lying in bed when CM met with him. He reported that he was very tired and not feeling the best. He reported that he was hospitalized in September, and he felt that he rushed his way home. He plans to stay as long as medically necessary this admission. He feels that his functioning has declined since being diagnosed with COPD, but he is still independent. CM will continue to follow. ADVANCE DIRECTIVES:: On file, listed as agent. Has patient been provided with info about the portal/API?: Yes Did the patient sign up for the portal?: No CODE STATUS:: Full Code INSURANCE COVERAGE / FINANCIAL ISSUES:: MCR/ BCBS CURRENT HOME/COMMUNITY SERVICES/EQUIPMENT:: No current services. Will be establishing with [facility] once moved into his new apartment. He has a CPAP, but no other equipment. PRIMARY CARE PHYSICIAN:: Susannah Malhotra POTENTIAL DISCHARGE NEEDS:: Evaluations for further needs, follow up appoint ments. PATIENT/FAMILY EDUCATION NEEDS:: Review discharge instructions regarding activity levels and medications, discussion of self care needs including ask me three. ANTICIPATED BARRIERS TO DISCHARGE:: None identified. TRANSPORTATION:: Private vehicle, by family vs RCT. PLAN:: Anticipate Jimmy will return home when medically cleared by MD. He will be driven home via private vehilce by family when ready. He will follow up with his PCP and discharge plan of care. CM will continue to follow.
[2020-11-22 20:09] VITALS: BP 102/69; PULSE 89; RESP 22; TEMP 37; O2SAT 93
[2020-11-22 23:57] VITALS: BP 106/70; PULSE 85; RESP 18; TEMP 37.1; O2SAT 94
--- NOTE | 2020-11-23 | DI.US_ITS ---
EXAM: US EXTREMITY VENOUS BI CLINICAL HISTORY: PE, low 02 sats, hx of DVT, r/o dvt. TECHNIQUE: Ultrasound performed using standard protocol. COMPARISON: US US ABDOMEN from 08/11/2020 FINDINGS: Duplex venous ultrasound was performed according to the usual protocol. The deep veins are freely com pressible throughout and there is normal flow augmentation with manual calf compression. 2D and Doppl er evaluation are unremarkable. IMPRESSION: No evidence of deep venous thrombosis of the right or left lower extremity. DATA REPOSITORY:
[2020-11-23] MEDS: PIPERACILLIN/TAZO 3.375 GM in Normal Saline 50 ML IVPB ×4 (03:33→21:26)
[2020-11-23] MEDS: methylPREDNISolone SUCC 40 MG VIAL IVP ×3 (06:30→21:26)
[2020-11-23] MEDS: Normal Saline Flush 10 ML SYR IVP ×3 (06:30→20:47)
[2020-11-23 07:22] LABS: HCT 35.7 % (40.0-50.0); HGB 11.6 g/dL (13.5-17.5); MCH 28.4 pg (27.0-33.0); MCHC 32.5 % (32.0-36.0); MCV 87.3 fL (80-95); MPV 8.8 fL (8.0-11.0); Platelet Count 220 10^3/uL (130-400); RBC 4.09 10^6/uL (4.36-5.78); RDW 12.1 % (11.8-14.1); RDW-SD 39.1 fL; WBC 16.55 10^3/uL (4.4-10.8)
[2020-11-23 07:36] LABS: Anion Gap 8.6 mmol/L (3-11); BUN 17 mg/dL (7-18); CO2 25.4 mmol/L (21.0-32.0); CREATININE 1.1 mg/dL (0.70-1.30); Calcium 8.9 mg/dL (8.5-10.1); Chloride 105 mmol/L (98-107); Glucose 149 mg/dL (74-106); Magnesium 2.1 mg/dL (1.8-2.4); Potassium 4.4 mmol/L (3.5-5.1); Sodium 139 mmol/L (136-145)
[2020-11-23 07:40] VITALS: BP 107/68; PULSE 79; RESP 19; TEMP 36.7; O2SAT 92
[2020-11-23] MEDS: Aspirin E.C. 81 MG TABEC PO (09:31)
[2020-11-23] MEDS: Apixaban 5 MG TAB 10 MG PO ×2 (09:31→20:46)
[2020-11-23] MEDS: Lisinopril 5 MG TAB PO (09:31)
[2020-11-23] MEDS: Normal Saline 500 ML 30 ML IV (09:32)
[2020-11-23 09:48] LABS: Iron 54 ug/dL (65-175); Total Iron Binding Capacity 198 ug/dL (250-450); Transferrin Sat 27 % (20-55)
[2020-11-23 10:14] LABS: Ferritin 172 ng/mL (26-388); Folate 5.4 ng/mL (8.6-20.0); Vitamin B12 341 pg/mL (193-986)
[2020-11-23 10:16] LABS: Troponin I < 0.05 ng/mL (<0.06)
[2020-11-23] MEDS: VANCOMYCIN/WATER (PEG) 1.5 GM/300 ML BAG IVPB (10:34)
[2020-11-23] MEDS: Folic Acid 1 MG TAB PO (11:09)
[2020-11-23] MEDS: Tiotropium/Olodaterol 10 PUFF INHALER 2 PUFF IH (11:23)
--- NOTE | 2020-11-23 14:12 | CHAPLAIN ---
Jeremiah was resting in bed when I visited. He was friendly and easily engaged in conversation. He said his pneumonia had really knocked him out, and he's not sure the ever fully recovered from having pneumonia back in September. According to Care Management notes, he lives with his daughter in [place], and is in the process of moving to the [facility]. I explained my role and offered support.
[2020-11-23] MEDS: guaiFENesin 600 MG TABCR PO ×2 (14:17→20:47)
[2020-11-23 14:30] VITALS: RESP 2; O2SAT 92
[2020-11-23] MEDS: Albuterol/Ipratropium 3 ML UPD VIAL UPD ×2 (14:30→20:47)
[2020-11-23 14:37] VITALS: RESP 2
[2020-11-23] MEDS: Acetylcysteine 20% *ORAL/INHALED* 6000 MG/30 ML VIAL 600 MG PO ×2 (14:40→20:47)
[2020-11-23 15:43] VITALS: BP 112/75; PULSE 100; RESP 18; TEMP 36.6; O2SAT 90
--- NOTE | 2020-11-23 15:52 | PGE_ITS ---
Date of Service Date of service: 11/23/20 Time of Service: 15:52 Assessment and Plan Assessment and plan (1) Pneumonia: Start date: 11/23/20 Start time: 15:57 Status: Acute Assessment and plan: CT chest shows: Severe COPD-emphysematous changes and there is extensive new infiltrate throughout the right lung with relative sparing of the opposite-left lung. He has SOB with activity and intermittent SOB at rest. + Productive cough, no wheezing. COVID-19 negative. Leukocytosis to 13.48. He is on Zosyn, day 2, he was recently admitted, will vanco for HCAP, MRSA swap done, will d/c vanco if negative. Continue IV methylprednisone and PRN nebs, will change methylpredinsone to 40 mg q 12 h in am as wheezing improving . Blood culture NGTD repeat CBC tomorrow. Placed on protonix BID for both protection of predinisone and eliquis. Due to hard secretions will add acytelcystine for 24-48 hours to help with secretions along with acapella, IS, humidified oxgyen through CPAP, mucinex. 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 He has been on Apixiban, recently decreased from 5 mg BID to [address] shows bilateral segmental and subsegmental pulmonary emboli without obvious infarction. Mild prominence of the right ventricle indicating an element of right heart strain. Apixiban dose increased to 10 mg BID x7 days, then resume 5 mg BID. U/s of bilateral lower extremities negative for DVT (3) COPD exacerbation: Start date: 11/23/20 Start time: 16:00 Status: Acute Assessment and plan: As above. (4) HTN (hypertension): Start date: 11/23/20 Start time: 16:01 Status: Chronic Assessment and plan: Blood pressure well controlled. Continue lisinopril 5 mg daily. Monitor renal function. (5) DVT prophylaxis: Start date: 11/23/20 Start time: 16:01 Status: Acute Assessment and plan: Continue Apixiban. (6) Discharge planning issues: Start date: 11/23/20 Start time: 16:01 Status: Acute Assessment and plan: CODE status addressed, he remains a FULL code. His daughter is his health care agent. above case discussed with Dr Puri. Subjective Subjective Patient reports: other Interval history since last seen: Patient sitting up in chair. Harsh cough with blood tinged sputum. He states he is having a hard time getting the sputum up as it is hard. He has humdified oxygen through CPAP. Will add acytelcystine for 24- 48 hours and mucinex. No contraindication with PE. Otherwise he states he is doing ok. He denies CP, N/V/D. Exam Narrative Exam Narrative: General: 65 year old man, sitting up in chair, appears older than stated age he does become SOB easily. Pleasant and talkative, answers questions appropriately. HEENT: normocephalic, atraumatic, pupils equal and round, mucous membranes moist. Neck: supple, no JVD. Cardiovascular: heart sounds regular, nontachycardic. Respiratory: wearing oxygen, appears to have mildly increased work of breathing at rest, lung sounds with rales to the right base. wheezing left upper lung, harsh cough with yellow blood tinged sputum. GI: round, soft, nontender on palpation, non distended, +BS. Extremities: no edema, moves all extremities freely. Objective Last Vital Signs Temp 36.6 C 11/23/20 15:43 Pulse 100 H 11/23/20 15:43 Resp 18 11/23/20 15:43 BP 112/75 11/23/20 15:43 Pulse Ox 90 L 11/23/20 15:43 Laboratory Results - last 24 hr 11/23/20 11/23/20 11/23/20 06:28 06:28 06:28 WBC 16.55 H RBC 4.09 L Hgb 11.6 L Hct 35.7 L MCV 87.3 MCH 28.4 MCHC 32.5 RDW 12.1 Plt Count 220 MPV 8.8 Sodium 139 Potassium 4.4 Chloride 105 Carbon Dioxide 25.4 Anion Gap 8.6 BUN 17 Creatinine 1.1 Estimated GFR/1.73 m2 >= 60.00 Glucose 149 H Calcium 8.9 Magnesium 2.1 Iron TIBC Transferrin % Sat Ferritin 172 Troponin I < 0.05 Vitamin B12 341 Folate 5.4 L 11/23/20 06:28 WBC RBC Hgb Hct MCV MCH MCHC RDW Plt Count MPV Sodium Potassium Chloride Carbon Dioxide Anion Gap BUN Creatinine Estimated GFR/1.73 m2 Glucose Calcium Magnesium Iron 54 L TIBC 198 L Transferrin % Sat 27 Ferritin Troponin I Vitamin B12 Folate
--- NOTE | 2020-11-23 17:09 | PHA.REVIEW ---
Pharmacy Admission Review - Admission Clinical Review (Last Reviewed 11/21/20 @ 22:53 by Alber Garcia MD) Discharge planning issues (Acute) DVT prophylaxis (Acute) Pneumonia (Acute) COPD exacerbation (Acute) Pneumonia (Acute) No Known Allergies Allergy (Verified 06/23/20 10:05) Height 5 ft 11 in Weight 99 kg PNEUMONIA, PE - Comments Comments/Follow Ups: Solu-medrol being tapered, watch for switch to oral. Acetylcysteine inhaled is being trialed to help with secretions in addition to Mucinex. Home med Anoro Ellipta substituted with Stoiolto Respimat. Zosyn and Vanco day#2 for HCAP. MRSA swab pending...if negative, february d/c Vanco. Doxycycline was stopped. Eliquis dose increased to 10mg po BID, as he developed a PE on lower dose, does have blood tinged secretions, so follow. Eliquis dose will be reduced again after 7 days. H/H is down 11.6/35.7. Micro blood and sputum no growth, Ultrasound of lower extremity's ruled out, as he also has a DVT history. Does have CPAP at home that needed settings adjusted - Renal Dosing Renal Dosing: BUN 17 mg/dL (7-18) 11/23/20 06:28 Creatinine 1.1 mg/dL (0.70-1.30) 11/23/20 06:28 Medications needing adjustments: Reviewed (CrCl~69ml/min) - Anticoagulation Anticoagulation: Hgb 11.6 g/dL (13.5-17.5) L 11/23/20 06:28 Hct 35.7 % (40.0-50.0) L 11/23/20 06:28 Plt Count 220 10^3/uL (130-400) 11/23/20 06:28 INR 1.5 (0.9-1.1) H 11/21/20 21:30 Creatinine 1.1 mg/dL (0.70-1.30) 11/23/20 06:28 Therapeutic Anticoagulation: Reviewed (Eliquis increased to 10mg po BID....had PE with lower dose) Medications: Apixaban - Relevant Labs Sodium 139 mmol/L (136-145) 11/23/20 06:28 Potassium 4.4 mmol/L (3.5-5.1) 11/23/20 06:28 Chloride 105 mmol/L (98-107) 11/23/20 06:28 Magnesium 2.1 mg/dL (1.8-2.4) 11/23/20 06:28 WBC up 16.55 (0n IV steroids), Iron is low - DM Control DM Control: Glucose 149 mg/dL (74-106) H 11/23/20 06:28 Insulin Dosing: N/A - Heart Failure/DE Heart Failure/DE: Troponin I < 0.05 ng/mL (<0.06) 11/23/20 06:28 EF%, DAVID's, B-Blockers, Diuretics: Reviewed (Lisinopril) - BP Control BP Control: Blood Pressure 112/75 Blood Pressure 107/68 If elevated: Reviewed - Qtc Review If Elevated: Reviewed (QTC 448, Sinus Tachy on admission) - IV to PO Switch IV Medications: Reviewed (IV steroids, IV antibiotics) - Home Meds Home Med List reviewed: Reviewed (Was on Augmentin as outpatient, Eliquis was 5mg po DAILY prior to new PE) Antibiotic Activity - Pharmacy Antibiotic Review Pharmacy Antibiotic Activity: C/S review - Antibiotic Information Antibiotic Review Info: Tieno/Ashley for HCAP
--- NOTE | 2020-11-23 18:21 | CMPROGNOTE_ITS ---
- If Service Date Differs Date of service: 11/23/20 Time of Service: 18:21 Care Management Progress Note S/O: Jeremiah was sitting up in his chair when CM met with him. He stated that he is tired, as he has been kept very busy all day. He asked CM for information regarding his Covid 19 Vaccine, which was scheduled for this , 11/25/20, but he cancelled it due to this admission. He inquired about having the vaccine while he is on abx. CM asked the provider, who reported that he can schedule his vaccine for any time after his discharge from the hospital, and to her knowledge there are no contraindications. CM will contact Broderick Siddiqi [facility], to relay this information. CM will continue to follow. A: Jeremiah is a 65 year old male admitted to [facility] on 11/21/20 with PNA, PE. P: Anticipate Jimmy will return home when medically cleared by . He will have out patient follow up by [facility]. He will be driven home via private vehicle by family when ready. He will follow up with his PCP and discharge plan of care. CM will continue to follow.
[2020-11-23] MEDS: Pantoprazole 40 MG TABCR PO (20:47)
[2020-11-23 20:51] VITALS: BP 93/57; PULSE 81; RESP 18; TEMP 36.8; O2SAT 93
[2020-11-23 21:17] VITALS: RESP 2; RESP 8
[2020-11-23] MEDS: VANCOMYCIN/WATER (PEG) 1.25 GM/250 ML BAG IV (22:43)
[2020-11-24] VITALS (7 sets, daily range): BP systolic 119–131; BP diastolic 72–89; PULSE 71–93; RESP 1–20; TEMP 35.9–36.7; O2SAT 91–94
[2020-11-24] MEDS: PIPERACILLIN/TAZO 3.375 GM in Normal Saline 50 ML IVPB ×4 (03:48→21:31)
[2020-11-24] MEDS: Normal Saline Flush 10 ML SYR IVP ×4 (06:03→20:27)
[2020-11-24] MEDS: methylPREDNISolone SUCC 40 MG VIAL IVP (06:03)
[2020-11-24] MEDS: Albuterol 2.5 MG/3 ML INH SOLN VIAL (08:06)
[2020-11-24] MEDS: Pantoprazole 40 MG TABCR PO ×2 (08:29→20:27)
[2020-11-24] MEDS: guaiFENesin 600 MG TABCR PO ×2 (08:42→20:27)
[2020-11-24] MEDS: Folic Acid 1 MG TAB PO (08:42)
[2020-11-24] MEDS: Aspirin E.C. 81 MG TABEC PO (08:43)
[2020-11-24] MEDS: Apixaban 5 MG TAB 10 MG PO ×2 (08:43→20:27)
[2020-11-24] MEDS: Lisinopril 5 MG TAB PO (08:43)
--- NOTE | 2020-11-24 09:04 | RESPIRATORY ---
Pt told me this AM the neb Muco is making him sick, and he threw up after taking it and he was unable to use his cpap after doing neb. Pt sounds cl and has a good strong productive cough w/out neb. Will talk to MD about DC'ing muco, and continuing albuterol only PRN.
--- NOTE | 2020-11-24 09:24 | RESPIRATORY ---
Prescription for home CPAP unit mask and tubing, along with updated demographics sent to [facility].
[2020-11-24] MEDS: Tiotropium/Olodaterol 10 PUFF INHALER 2 PUFF IH (09:28)
[2020-11-24] MEDS: Normal Saline 500 ML 30 ML IV (10:16)
[2020-11-24] MEDS: VANCOMYCIN/WATER (PEG) 1.25 GM/250 ML BAG IV (11:12)
--- NOTE | 2020-11-24 12:07 | W.PM.PROGNOT ---
Date of Service Date of service: 11/24/20 Time of Service: 12:07 Assessment and Plan Assessment and plan (1) Pneumonia: Status: Acute Assessment and plan: clinically improving, weaning off oxygen CT chest shows: Severe COPD-emphysematous changes and there is extensive new infiltrate throughout the right lung with relative sparing of the opposite-left lung. He has SOB with activity and intermittent SOB at rest which is improving. + Productive cough, no wheezing. COVID-19 negative. Leukocytosis to 16.55 from 13.48 yesterday, no labs today, likely d/t steroids. He is on Zosyn, day 3 and vanco for HCAP, MRSA swap pending wean IV steroids to burst of prednisone. Blood culture NGTD repeat CBC tomorrow. Placed on protonix BID for both protection of prednisone and eliquis. continue acapella, IS, humidified oxygen through CPAP, mucinex. 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 He has been on Apixiban, recently decreased from 5 mg BID to [address] shows bilateral segmental and subsegmental pulmonary emboli without obvious infarction. Mild prominence of the right ventricle indicating an element of right heart strain. Apixiban dose increased to 10 mg BID x7 days, then resume 5 mg BID. U/s of bilateral lower extremities negative for DVT (3) COPD exacerbation: Status: Acute Assessment and plan: As above. (4) HTN (hypertension): Status: Chronic Assessment and plan: Blood pressure well controlled. Continue lisinopril 5 mg daily. Monitor renal function. (5) DVT prophylaxis: Status: Acute Assessment and plan: Continue Apixiban. (6) Discharge planning issues: Status: Acute Assessment and plan: CODE status addressed, he remains a FULL code. His daughter is his health care agent. patient should be stable for discharge to home in 1-2 days, no services anticipated above case discussed with Dr Puri. Subjective Subjective Patient reports: no new complaints, feels better, tolerating liquids well, tolerating a regular diet, voiding w/o difficulty, bowel movement and afebrile Interval history since last seen: weaned off oxygen at rest. productive cough raising thick sputum. Exam Const General: cooperative, comfortable, no acute distress and ill appearing (older appearing than stated age) chronically Nutritional Appearance: overweight Orientation: alert, awake and oriented x3 HENNC Head: normal to inspection, normocephalic and atraumatic Mouth: oral mucosae normal Chest Chest: normal inspection of the chest Resp Effort & Inspection: normal respiratory effort and cough Quality of cough: productive Auscultation: rhonchi left lower (coarse) and right lower (dull) and no wheezes Cardio Rate: regular rate Rhythm: regular rhythm GI Inspection: normal to inspection, distended and obesity Palpation: soft Auscultation: normal bowel sounds Skin General skin exam: no rashes or lesions noted Neuro General: patient alert, patient awake, patient oriented x3 and moves all extremities Extrem General: normal to inspection and full ROM Objective Last Vital Signs Temp 35.9 C L 11/24/20 07:17 Pulse 82 11/24/20 07:17 Resp 18 11/24/20 07:17 BP 129/87 11/24/20 07:17 Pulse Ox 92 11/24/20 10:42
--- NOTE | 2020-11-24 17:12 | CMPROGNOTE_ITS ---
- If Service Date Differs Date of service: 11/24/20 Time of Service: 17:12 Care Management Progress Note S/O: Jimmy was sitting up in bed when CM met with him. He stated that the provider told him he may be ready for discharge tomorrow, and he was hesitant because he doesn't want to leave too early. CM discussed this with him, stating that it is important that people are home as soon as they are medically cleared, especially during Covid, which he was in agreement with. Jimmy called Broderick Siddiqi ([phone]) while DELMAR was in the room to inform her that he would like to wait until after his abx treatment is complete to reschedule his Covid vaccine. CM will call Broderick upon his discharge in order for her to complete his enrollment in [facility]. CM will continue to follow. A: Jeremiah is a 65 year old male admitted to [facility] on 11/21/20 with PNA, PE. P: Anticipate Jimmy will return home when medically cleared by . He will have out patient follow up by [facility]. He will be driven home via private vehicle by family when ready. He will follow up with his PCP and discharge plan of care. CM will continue to follow.
[2020-11-25] VITALS (11 sets, daily range): BP systolic 98–148; BP diastolic 70–89; PULSE 67–82; RESP 16–20; TEMP 35.9–37; O2SAT 87–96
[2020-11-25] MEDS: PIPERACILLIN/TAZO 3.375 GM in Normal Saline 50 ML IVPB ×2 (04:12→10:36)
[2020-11-25] MEDS: Normal Saline Flush 10 ML SYR IVP ×3 (04:13→19:58)
[2020-11-25 06:58] LABS: Abs Immature Grans 0.09 10^3/uL (0.0-0.06); Absolute Eosinophil Count 0.15 10^3/uL (0.0-0.7); Absolute Neutrophil Count 9.52 10^3/uL (1.2-6.7); Basophils % 0.1; Eosinophils % 1.1; HCT 36.2 % (40.0-50.0); HGB 11.6 g/dL (13.5-17.5); Immature Grans % 0.7; Lymphocytes % 20.4; MCH 28.2 pg (27.0-33.0); MCV 88.1 fL (80-95); MPV 9.1 fL (8.0-11.0); Monocytes % 8.4; Neutrophils % 69.3; Nucleated RBC 0 %; Platelet Count 264 10^3/uL (130-400); RBC 4.11 10^6/uL (4.36-5.78); RDW 12.6 % (11.8-14.1); RDW-SD 40.7 fL; WBC 13.74 10^3/uL (4.4-10.8)
[2020-11-25 07:01] LABS: Absolute Basophil Count 0.01 10^3/uL (0.0-0.2); Absolute Monocyte Count 1.15 10^3/uL (0.1-0.8)
[2020-11-25 07:05] LABS: Anion Gap 9.7 mmol/L (3-11); BUN 23 mg/dL (7-18); CO2 25.3 mmol/L (21.0-32.0); CREATININE 1.2 mg/dL (0.70-1.30); Calcium 8.3 mg/dL (8.5-10.1); Chloride 107 mmol/L (98-107); Glucose 91 mg/dL (74-106); Potassium 3.8 mmol/L (3.5-5.1); Sodium 142 mmol/L (136-145)
[2020-11-25] MEDS: Folic Acid 1 MG TAB PO (08:00)
[2020-11-25] MEDS: Apixaban 5 MG TAB 10 MG PO ×2 (08:01→19:30)
[2020-11-25] MEDS: Aspirin E.C. 81 MG TABEC PO (08:01)
[2020-11-25] MEDS: guaiFENesin 600 MG TABCR PO ×2 (08:01→19:30)
[2020-11-25] MEDS: Lisinopril 5 MG TAB PO (08:01)
[2020-11-25] MEDS: predniSONE 20 MG TAB 40 MG PO (08:01)
[2020-11-25] MEDS: Pantoprazole 40 MG TABCR PO ×2 (08:01→19:29)
[2020-11-25] MEDS: Tiotropium/Olodaterol 10 PUFF INHALER 2 PUFF IH (08:17)
--- NOTE | 2020-11-25 14:41 | RESPIRATORY ---
RT spoke with patient concerning bring in his home unit, patient stated at first that he had no one to do so. Later in afternoon, when RT changed setting patient, stated his DME was called and he's able to get his new supplies. He stated his home unit is not longer broken and that he's able to get a new mask and hose. Depending on how long patient is going to be here, RT asked if he may want to have someone bring in his home unit. Pt said he will just use the hospital unit.
--- NOTE | 2020-11-25 15:28 | W.PM.PROGNOT ---
Date of Service Date of service: 11/25/20 Time of Service: 15:28 Assessment and Plan Assessment and plan (1) Pneumonia: Status: Acute Assessment and plan: back on low level oxygen COVID-19 negative. Leukocytosis to 16.55 from 13.48 yesterday, no labs today, likely d/t steroids. He is on Zosyn, day 4 MRSA swab negative complete burst of prednisone. Blood culture NGTD repeat CBC tomorrow. Placed on protonix BID for both protection of prednisone and eliquis. continue acapella, IS, humidified oxygen through CPAP, mucinex. CT chest shows: Severe COPD-emphysematous changes and there is extensive new infiltrate throughout the right lung with relative sparing of the opposite-left lung. 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 He has been on Apixiban, recently decreased from 5 mg BID to [address] shows bilateral segmental and subsegmental pulmonary emboli without obvious infarction. Mild prominence of the right ventricle indicating an element of right heart strain. Apixiban dose increased to 10 mg BID x7 days, then resume 5 mg BID. U/s of bilateral lower extremities negative for DVT (3) COPD exacerbation: Status: Acute Assessment and plan: As above. (4) HTN (hypertension): Status: Chronic Assessment and plan: Blood pressure well controlled. Continue lisinopril 5 mg daily. Monitor renal function. (5) DVT prophylaxis: Status: Acute Assessment and plan: Continue Apixiban. (6) Discharge planning issues: Status: Acute Assessment and plan: CODE status addressed, he remains a FULL code. His daughter is his health care agent. patient should be stable for discharge to home in 1-2 days, no services anticipated above case discussed with Dr Puri. Subjective Subjective Patient reports: no new complaints, feels better, tolerating liquids well, tolerating a regular diet and afebrile Interval history since last seen: having oxygen requirements today. no new c/o, still having productive cough Exam Const General: cooperative, comfortable, no acute distress and ill appearing (older appearing than stated age) chronically Nutritional Appearance: overweight Orientation: alert, awake and oriented x3 HENMT Head: normal to inspection, normocephalic and atraumatic Mouth: oral mucosae normal Chest Chest: normal inspection of the chest Resp Effort & Inspection: normal respiratory effort and cough Quality of cough: productive Auscultation: rhonchi left lower (coarse) and right lower (dull) and no wheezes Cardio Rate: regular rate Rhythm: regular rhythm GI Inspection: normal to inspection, distended and obesity Palpation: soft Auscultation: normal bowel sounds Skin General skin exam: no rashes or lesions noted Neuro General: patient alert, patient awake, patient oriented x3 and moves all extremities Extrem General: normal to inspection and full ROM Objective Last Vital Signs Temp 36.7 C 11/25/20 07:28 Pulse 81 11/25/20 14:36 Resp 20 11/25/20 14:36 BP 148/87 H 11/25/20 07:28 Pulse Ox 96 11/25/20 14:36 Laboratory Results - last 24 hr 11/25/20 11/25/20 11/25/20 06:30 06:30 09:00 WBC 13.74 H RBC 4.11 L Hgb 11.6 L Hct 36.2 L MCV 88.1 MCH 28.2 MCHC 32.0 RDW 12.6 Plt Count 264 MPV 9.1 Immature Gran % 0.7 Neutrophils % 69.3 Lymphocytes % 20.4 Monocytes % 8.4 Eosinophils % 1.1 Basophils % 0.1 Nucleated RBC % 0 Absolute Neutrophils 9.52 H Absolute Lymphocytes 2.80 Absolute Monocytes 1.15 H Absolute Eosinophils 0.15 Absolute Basophils 0.01 Sodium 142 Potassium 3.8 Chloride 107 Carbon Dioxide 25.3 Anion Gap 9.7 BUN 23 H Creatinine 1.2 Estimated GFR/1.73 m2 >= 60.00 Glucose 91 D Calcium 8.3 L Vancomycin Trough Cancelled
--- NOTE | 2020-11-25 18:44 | PDOC.CMPRO ---
- If Service Date Differs Date of service: 11/25/20 Time of Service: 18:44 Care Management Progress Note S/O: Jimmy had a difficult night, stating that he didn't sleep. He reported that it was noisy, and that his CPAP settings here are not correct. He is now requiring oxygen, which he did not yesterday. Per provider, he will be monitored overnight to determine if he will require home O2. He is happy to remain at [facility] as he does not feel he is ready for discharge today. CM will continue to follow. A: Jeremiah is a 65 year old male admitted to [facility] on 11/21/20 with PNA, PE. P: Anticipate Jimmy will return home when medically cleared by . He will have out patient follow up by [facility]. He will be driven home via private vehicle by family when ready. He will follow up with his PCP and discharge plan of care. CM will continue to follow.
[2020-11-25] MEDS: Amoxicillin 875/Clav. 125 TAB PO (19:30)
[2020-11-26] MEDS: Tiotropium/Olodaterol 10 PUFF INHALER 2 PUFF IH (07:37)
[2020-11-26 07:41] VITALS: O2SAT 88
[2020-11-26 07:46] VITALS: BP 111/82; PULSE 83; RESP 17; TEMP 36.5; O2SAT 88
[2020-11-26] MEDS: predniSONE 20 MG TAB 40 MG PO (07:49)
[2020-11-26] MEDS: Apixaban 5 MG TAB 10 MG PO ×2 (07:49→19:51)
[2020-11-26] MEDS: Lisinopril 5 MG TAB PO (07:49)
[2020-11-26] MEDS: Folic Acid 1 MG TAB PO (07:49)
[2020-11-26] MEDS: Aspirin E.C. 81 MG TABEC PO (07:50)
[2020-11-26] MEDS: guaiFENesin 600 MG TABCR PO ×2 (07:50→19:52)
[2020-11-26] MEDS: Amoxicillin 875/Clav. 125 TAB PO ×2 (07:50→19:53)
[2020-11-26] MEDS: Pantoprazole 40 MG TABCR PO ×2 (07:50→19:52)
[2020-11-26 07:55] VITALS: O2SAT 95
--- NOTE | 2020-11-26 09:13 | W.PM.PROGNOT ---
Date of Service Date of service: 11/26/20 Time of Service: 09:13 Assessment and Plan Assessment and plan (1) Pneumonia: Status: Acute Assessment and plan: back on low level oxygen, 1 liter NC with sats in mid 90's so will try to wean today COVID-19 negative. Leukocytosis back down yesterday, no labs today, likely d/t steroids. He was downstepped to augmentin yesterday MRSA swab negative to complete burst of prednisone. Blood culture NGTD Placed on protonix BID for both protection of prednisone and eliquis. continue acapella, IS, humidified oxygen through CPAP, mucinex, wean oxygen CT chest shows: Severe COPD-emphysematous changes and there is extensive new infiltrate throughout the right lung with relative sparing of the opposite-left lung. 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 He has been on Apixiban, recently decreased from 5 mg BID to [address] shows bilateral segmental and subsegmental pulmonary emboli without obvious infarction. Mild prominence of the right ventricle indicating an element of right heart strain. Apixiban dose increased to 10 mg BID x7 days, then resume 5 mg BID. U/s of bilateral lower extremities negative for DVT (3) COPD exacerbation: Status: Acute Assessment and plan: As above. (4) HTN (hypertension): Status: Chronic Assessment and plan: Blood pressure well controlled. Continue lisinopril 5 mg daily. Monitor renal function. (5) DVT prophylaxis: Status: Acute Assessment and plan: Continue Apixiban. (6) Discharge planning issues: Status: Acute Assessment and plan: CODE status addressed, he remains a FULL code. His daughter is his health care agent. patient should be stable for discharge to home in 1-2 days, no services anticipated above case discussed with Dr Puri. Subjective Subjective Patient reports: no new complaints, tolerating liquids well, tolerating a regular diet, voiding w/o difficulty, bowel movement and afebrile Interval history since last seen: white count was trending down yesterday, continues to have a productive cough, oxygenating in mid 90's on 1 liter by nasal cannula. ambulating in the hurley and feeling much better today Exam Const General: cooperative, comfortable, no acute distress and ill appearing (older appearing than stated age) chronically Nutritional Appearance: overweight Orientation: alert, awake and oriented x3 HENMT Head: normal to inspection, normocephalic and atraumatic Mouth: oral mucosae normal Chest Chest: normal inspection of the chest Resp Effort & Inspection: normal respiratory effort and cough Quality of cough: productive Auscultation: rhonchi left lower (coarse) and right lower (dull) and no wheezes Cardio Rate: regular rate Rhythm: regular rhythm GI Inspection: normal to inspection, distended and obesity Palpation: soft Auscultation: normal bowel sounds Skin General skin exam: no rashes or lesions noted Neuro General: patient alert, patient awake, patient oriented x3 and moves all extremities Extrem General: normal to inspection and full ROM Objective Last Vital Signs Temp 36.5 C 11/26/20 07:46 Pulse 83 11/26/20 07:46 Resp 17 11/26/20 07:46 BP 111/82 11/26/20 07:46 Pulse Ox 95 11/26/20 07:55
[2020-11-26] MEDS: Nystatin 500000 UNITS/5 ML SUSP 5ML CUP PO ×3 (09:45→19:53)
[2020-11-26 15:43] VITALS: BP 109/75; PULSE 91; RESP 19; TEMP 36.6; O2SAT 97
--- NOTE | 2020-11-26 15:48 | CHAPLAIN ---
Jimmy said he is felling better today, and maybe discharged tomorrow or the day after. He is using oxygen today. He was very pleased with the care he received from respiratory therapists, and credits them with getting him well. He was scheduled to move last weekend, so his brother has organized a group of friends to help and move all his stuff for him. His nine year old grandson has offered to help him get settled in and Jimmy is looking forward to that.
[2020-11-26 19:10] VITALS: O2SAT 95
--- NOTE | 2020-11-26 19:37 | CMPROGNOTE_ITS ---
- If Service Date Differs Date of service: 11/26/20 Time of Service: 19:37 Care Management Progress Note S/O: Jimmy was sitting up in his chair when CM met with him. He stated that he was doing much better today than yesterday, but he is still on O2. Per report, RT is exploring whether or not he will qualify for home O2, as this is an acute process, but he does have COPD. He is agreeable to having home O2. CM discussed his potential discharge tomorrow, if medically ready. He stated that he has family ready and willing to pick him up. He is excited to move into his new apt at the [facility], soon. He has been connected with [facility] and reported that he will have a administrative supervisor him weekly once he moves into his new apt. CM will continue to follow. A: Jeremiah is a 65 year old male admitted to [facility] on 11/21/20 with PNA, PE. P: Anticipate Jimmy will return home when medically cleared by . He will have out patient follow up by [facility]. He will be driven home via private vehicle by family when ready. He will follow up with his PCP and discharge plan of care. CM will continue to follow.
[2020-11-27 03:46] VITALS: BP 112/75; PULSE 72; RESP 20; TEMP 36.5; O2SAT 95
[2020-11-27 03:48] VITALS: O2SAT 97
[2020-11-27 06:54] LABS: Abs Immature Grans 0.32 10^3/uL (0.0-0.06); Absolute Monocyte Count 1.02 10^3/uL (0.1-0.8); Absolute Neutrophil Count 9.02 10^3/uL (1.2-6.7); Basophils % 0.3; Eosinophils % 4.5; HCT 39.4 % (40.0-50.0); HGB 12.8 g/dL (13.5-17.5); Immature Grans % 2.2; Lymphocytes % 24.2; MCH 28.6 pg (27.0-33.0); MCHC 32.5 % (32.0-36.0); MCV 88.1 fL (80-95); MPV 8.8 fL (8.0-11.0); Neutrophils % 61.8; Nucleated RBC 0 %; Platelet Count 336 10^3/uL (130-400); RBC 4.47 10^6/uL (4.36-5.78); RDW 12.6 % (11.8-14.1); RDW-SD 41.1 fL
[2020-11-27 07:00] LABS: Absolute Basophil Count 0.04 10^3/uL (0.0-0.2); Absolute Eosinophil Count 0.66 10^3/uL (0.0-0.7); Absolute Lymphocyte Count 3.53 10^3/uL (1.2-3.4)
[2020-11-27 07:04] LABS: Anion Gap 9.2 mmol/L (3-11); BUN 24 mg/dL (7-18); CO2 28.8 mmol/L (21.0-32.0); CREATININE 1.2 mg/dL (0.70-1.30); Calcium 8.4 mg/dL (8.5-10.1); Chloride 104 mmol/L (98-107); Glucose 91 mg/dL (74-106); Potassium 4.1 mmol/L (3.5-5.1); Sodium 142 mmol/L (136-145)
[2020-11-27] MEDS: Tiotropium/Olodaterol 10 PUFF INHALER 2 PUFF IH (07:53)
[2020-11-27 07:57] VITALS: BP 134/88; PULSE 75; RESP 19; TEMP 36.7; O2SAT 95
[2020-11-27] MEDS: Nystatin 500000 UNITS/5 ML SUSP 5ML CUP PO (08:04)
[2020-11-27] MEDS: Pantoprazole 40 MG TABCR PO (08:04)
[2020-11-27] MEDS: Aspirin E.C. 81 MG TABEC PO (08:04)
[2020-11-27] MEDS: Amoxicillin 875/Clav. 125 TAB PO (08:04)
[2020-11-27] MEDS: Lisinopril 5 MG TAB PO (08:05)
[2020-11-27] MEDS: Apixaban 5 MG TAB 10 MG PO (08:05)
[2020-11-27] MEDS: Folic Acid 1 MG TAB PO (08:05)
[2020-11-27] MEDS: guaiFENesin 600 MG TABCR PO (08:05)
[2020-11-27] MEDS: predniSONE 20 MG TAB 40 MG PO (08:06)
[2020-11-27 09:57] VITALS: PULSE 105; PULSE 85; PULSE 90; PULSE 98; RESP 18; RESP 20; O2SAT 84; O2SAT 89; O2SAT 91; O2SAT 92
--- NOTE | 2020-11-27 10:03 | DSE_ITS ---
Date of service: 11/27/20 Time of Service: 10:03 DS: Diagnosis Discharge Diagnosis (1) Pneumonia: Start date: 11/27/20 Start time: 10:03 Status: Acute Asessment and Plan: CT chest on admission revealed Severe COPD- emphysematous changes and there is extensive new infiltrate throughout the right lung with relative sparing of the opposite-left lung. He has SOB with activity and intermittent SOB at rest. + Productive cough, no wheezing. He was initiated on zosyn transitioned to augementin for discharge. He will will finish another 5 days of augmentin Steroid taper Leukocytosis on admission 14.24, has not resolved, but in setting of steroids not surprising, however symptoms have improved, lung sounds clear diminished. Blood cultures no growth Sputum cx with millie albicans. Exercise oximetry revealing that he is requiring 2 Liters of oxygen on ambulation. His oxygen saturation level desats to 84% on RA, with with recovery to 91%. lowest saturation was only 89 on 2 L while ambulatory (2) Pulmonary embolism: Start date: 11/27/20 Start time: 10:10 Status: Chronic Asessment and Plan: He has a Hx of PE from lower extremity DVT (2019). He has been on Apixiban, recently decreased from 5 mg BID to [address] shows bilateral segmental and subsegmental pulmonary emboli without obvious infarction. Mild prominence of the right ventricle indicating an element of right heart strain. Apixiban dose increased to 10 mg BID x7 days, then resume 5 mg BID. He will need follow up with Hemetology bilateral u/s negative for DVT. (3) COPD exacerbation: Start date: 11/27/20 Start time: 10:11 Status: Acute Asessment and Plan: as above (4) HTN (hypertension): Start date: 11/27/20 Start time: 10:14 Status: Chronic Asessment and Plan: continue HTN medication Discharge Plan Disposition Patient Disposition: HOME Condition: Good Discharge Details Reason For Visit: PNEUMONIA, PE Admit Date/Time: 11/21/20 23:04 Admit Provider: Alber Garcia Attending Provider: Alber Garcia Primary Care Provider: Susannah Malhotra Hospital Course Hospital Course: 65 male with h/o COPD, here in September with pneumonia. Also has h/o PE in 2018, apparently dose of DOAC was reduced sometime last week. Comes in with 4-5 days of productive cough, blood tinged, and SOB. 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 In ER findings of note for absence of fever, wheezing, white count of 13 and CTA showing consolidation and ground glass opacities on right, as well as multiple new emboli on right. Admitted for further management. Initiated on zosyn and doxy on admission then transitioned to vanco due to HCAP. Producing harsh sputum bloody tinged sputum acetylcystine trialed, with humdified oxygen, acapella, cpap and mucinex. Blood cultures negative, MRSA negative, vanco dcd. Received total 5 days zosyn then down stepped to augmentin. He will complete course of augmentin with steroid burst. Sputum culture with normal do. Exercise oximetry on day of discharge revealing patient requiring 2l oxygen when ambulatory. Non ambulatory does not require however when ambulatory he does desat to 84% without oxygen. He is being discharged home. He will need a total of 7 days fo apixaban 10 mg bid then down grade to 5 mg BID he should follow up with hematology given recurrent PE. Follow up with PCP in 1 week. Repeat CXR/CT in 6 weeks. He is feeling much better, denies CP, SOB, N/V/D Home Meds and New Rx's Prescriptions: New prednisone 20 mg Tablet 40 mg PO DAILY Qty: 6 RF: 0 folic acid 1 mg Tablet 1 mg PO DAILY Qty: 30 RF: 0 amoxicillin-pot clavulanate 875-125 mg Tablet 1 tab PO BID Qty: 16 RF: 0 Continued Anoro Ellipta 62.5-25 mcg/actuation blister with device 1 inh IH Q24H RF: 0 Eliquis 5 mg tablet 5 mg PO BID RF: 0 aspirin [Aspir-81] 81 MG tablet,delayed release (DR/EC) 81 mg PO DAILY RF: 0 lisinopril 2.5 mg tablet 5 mg PO DAILY RF: 0 ibuprofen 600 mg tablet 600 mg PO TID-QID PRN (Reason: pain) Qty: 60 RF: 3 albuterol sulfate 1.25 mg/3 mL Solution For Nebulization 1.25 mg inhalation PRN PRNRF: 0 polyethylene glycol 3350 17 gram Powder In Packet 17 g PO DAILY PRN PRN (Reason: Constipation) Qty: 1 RF: 2 Flovent HFA 220 mcg/actuation HFA aerosol inhaler 1 puff IH BID Qty: 1 RF: 3 albuterol sulfate [Ventolin HFA] 90 mcg/actuation HFA aerosol inhaler 2 puff IH Q6H PRNQty: 1 RF: 0 Discontinued Eliquis 5 mg tablet 5 mg PO ONCE RF: 0 amoxicillin-pot clavulanate 875-125 mg tablet 1 tab PO BID RF: 0 Discharge Instructions Instructions: Pulmonary Embolism (DC), Pneumonia (DC) Additional Instructions: Follow up with Dr. Malhotra in 1 week Follow up with Hematology Repeat CXR/CT in 6 weeks Take 10 mg eliquis twice a day until 11/29 then on 11/30 start taking eliquis 5 mg twice a day Take augmentin twice daily as directed Take prednisone daily for the next 3 days If you start to feel Shortness of breath, have Chest pain, fevers, cough with blood, go to the emergency room right away Stand Alone Forms: Nursing Discharge Form Activity:: Activity as Tolerated Equipment/Supplies:: No Equipment Needed Diet:: As Tolerated Discharge Orders Discharge Orders: Discharge Order (Routine); Ordered 11/27/20 Ordered By: Nini Pelaez DS: Summary Time Spent with Patient providing and/or coordinating discharge services: Greater than 30 minutes (a pprox 45 mins) Status at Discharge Functional status at discharge: independent ambulation Overall status at discharge: patient is back to baseline Mental Status: mental status grossly normal Speech and Movement: speech and movement normal Mood: congruent mood Affect: normal affect Exam Const General: cooperative, comfortable, no acute distress and ill appearing (older appearing than stated age) chronically Nutritional Appearance: overweight Orientation: alert, awake and oriented x3 HENMT Head: normal to inspection, normocephalic and atraumatic Mouth: oral mucosae normal Chest Chest: normal inspection of the chest Resp Effort & Inspection: normal respiratory effort and able to speak in complete sentences Auscultation: clear to auscultation bilaterally and diminished lung sounds bilaterally in the lower lung reid Cardio Rate: regular rate Rhythm: regular rhythm GI Inspection: normal to inspection, distended and obesity Palpation: soft Auscultation: normal bowel sounds Skin General skin exam: no rashes or lesions noted Neuro General: patient alert, patient awake, patient oriented x3 and moves all extremities Extrem General: normal to inspection and full ROM Psych Mental Status: mental status grossly normal Speech and Movement: speech and movement normal Mood: congruent mood Affect: normal affect DS: Data Vitals/I&O Vitals and I&O: Vital Signs Temperature 36.7 C 11/27/20 07:57 Temperature Source Temporal Artery Scan 11/27/20 07:57 Pulse 75 11/27/20 07:57 Pulse Rhythm Regular 11/27/20 03:48 Respiratory Rate 19 11/27/20 07:57 Respiratory Effort Non-Labored 11/27/20 03:48 Respiratory Depth Normal 11/27/20 03:48 Respiratory Pattern Normal 11/27/20 03:48 Blood Pressure 134/88 11/27/20 07:57 Blood Pressure Position Sitting 11/21/20 21:20 Pulse Oximetry 95 11/27/20 07:57 Oxygen Delivery Method Nasal Cannula 11/27/20 07:57 Oxygen Flow Rate 1 11/27/20 07:57 Fraction of Inspired Oxygen (FIO2) 11/25/20 08:26 Pain Level 0 11/27/20 07:57 Comment 11/22/20 00:55 Intake & Output 11/26/20 11/26/20 11/27/20 11:59 23:59 11:59 Intake Total 725 / 1445 720 / 1445 360 / 360 Output Total 200 / 200 Balance 525 / 1245 720 / 1245 360 / 360 Intake: Oral 725 / 1445 720 / 1445 360 / 360 Output: Urine 200 / 200 Other: Urine Color Yellow Yellow Urine Appearance Clear Cloudy Urine Odor Normal Normal Voiding Methods Toilet Toilet Data Completed and Pending Completed studies during hospitalization [Text1]: Exam(s) a US:US extremity venous BI EXAM: US EXTREMITY VENOUS BI CLINICAL HISTORY: PE, low 02 sats, hx of DVT, r/o dvt. TECHNIQUE: Ultrasound performed using standard protocol. COMPARISON: US US ABDOMEN from 08/11/2020 FINDINGS: Duplex venous ultrasound was performed according to the usual protocol. The deep veins are freely compressible throughout and there is normal flow augmentation with manual calf compression. 2D and Doppler evaluation are unremarkable. IMPRESSION: No evidence of deep venous thrombosis of the right or left lower extremity. Exam(s) PROCEDURE INFORMATION: Exam: CT Angiography Chest With Contrast Exam date and time: 11/21/2020 9:53 PM Age: 65 years old Clinical indication: Patient HX: Shortness of breath, HX of pe TECHNIQUE: Imaging protocol: Computed tomographic angiography of the chest with contrast. 3D rendering (Not supervised by radiologist): MIP and/or 3D reconstructed images were created by the technologist. Radiation optimization: All CT scans at this facility use at least one of these dose optimization techniques: automated exposure control; mA and/or kV adjustment per patient size (includes targeted exams where dose is matched to clinical indication); or iterative reconstruction. Contrast material: OMNIPAQUE 350; Contrast volume: 85 ml; Contrast route: INTRAVENOUS (IV); COMPARISON: CT CHEST PE CTA 10/03/2020 5:41 AM FINDINGS: Pulmonary arteries: There is a new segmental pulmonary embolism within the origin of the posterolateral basilar segmental right lower lobe pulmonary arterial branch on image 365, series 5. There is a new subsegmental acute pulmonary embolism within the posteromedial basilar segment of the right lower lobe, as seen on image 377, series 5. There are new subsegmental pulmonary emboli within the anterolateral basilar segment of the left lower lobe around axial image 391, series 5. The pulmonary arteries are not dilated. Aorta: Unremarkable. No aortic aneurysm. No aortic dissection. Lungs: Again noted are changes of moderate centrilobular emphysema. There are increased irregular patchy and nodular branching consolidative opacities within the right lung, most marked within the posterior base of the right lower lobe and along the lateral segment of the right middle lobe, suggesting bronchopneumonia. There is surrounding ground-glass and reticular opacity as well, new since prior study, consistent with pneumonitis. Pleural spaces: There is a small free layering right pleural effusion which is new since prior study. No left pleural effusion is identified. Heart: The right ventricular to left ventricular ratio is 1.30, which is elevated, but is similar to prior study. Heart size is within normal limits. There is no pericardial effusion. Mediastinal space: There is a small sliding hiatal hernia, as on prior study. Lymph nodes: Again noted are scattered prominent subcentimeter mediastinal lymph nodes, likely reactive. Liver: Again noted are a few small liver cysts. Gallbladder and bile ducts: There is focal calcification of the gallbladder fundus, which may be sequela of prior inflammation. Spleen: There are a few tiny splenic calcifications, as on prior study, suggesting old granulomatous disease. Bones/joints: Again noted is multilevel moderate spondylosis of the lower thoracic spine. No acute fractures identified. Soft tissues: Unremarkable. IMPRESSION: 1. New segmental and subsegmental basilar lower lobe pulmonary emboli as described above. 2. Findings of right heart strain, which were present on prior study as well. 3. Increased multifocal patchy and nodular airspace opacities within the right lung with surrounding ground-glass opacities suggesting pneumonia. Imaging features can be seen with COVID-19 pneumonia, though are nonspecific and can occur with a variety of infectious and noninfectious processes. (Reference: [place]) 4. New small freely layering right pleural effusion. 5. Moderate emphysema. CHEST: PULMONARY ARTERIES: There is subtle pulmonary emboli evident in the right lower lobe segmental branches and subsegmental branches. Also intraluminal filling defects seen in the left lung lower lobe segment. No emboli seen in the main central pulmonary arteries. LUNGS: Severe emphysematous changes again noted but there is now significant infiltrate evident throughout most lobes but all lobes of the right lung, both interstitial and confluent and there is small amount of right pleural fluid now evident posteriorly over the right upper lobe which was not evident previously. The left lung is relatively clear and there is no pleural fluid on the left side. MEDIASTINUM: There is no hilar nor mediastinal adenopathy. Small subcarinal lymph nodes are noted. No axillary adenopathy. Visualized thyroid unremarkable. CARDIAC: Heart size is normal. There is no pericardial effusion.Caliber of the thoracic aorta is within normal limits. There is slight shift of the interventricular septum indicating element of right heart strain. Coronary artery calcification is noted. PARTIALLY VISUALIZED UPPERMOST ABDOMEN: No adrenal masses. Hepatic cysts again noted. Tiny calcification in the gallbladder fundus noted. OSSEOUS: No significant osseous lesions.. IMPRESSION: 1. Bilateral segmental and subsegmental pulmonary emboli. No obvious pulmonary infarction.Mild prominence of the right ventricle indicating an element of right heart strain. 2. Severe COPD-emphysematous changes and there is extensive new infiltrate throughout the right lung with relative sparing of the opposite-left lung. There is a small right pleural effusion. No left pleural effusion. Covid-19 testing recommended. 3. Tiny calcification noted in the gallbladder fundus. Hepatic cysts again noted. Labs on day of discharge: Labs from last 24 hours 11/27/20 11/27/20 06:30 06:30 WBC 14.60 H RBC 4.47 Hgb 12.8 L Hct 39.4 L MCV 88.1 MCH 28.6 MCHC 32.5 RDW 12.6 Plt Count 336 MPV 8.8 Immature Gran % 2.2 Neutrophils % 61.8 Lymphocytes % 24.2 Monocytes % 7.0 Eosinophils % 4.5 Basophils % 0.3 Nucleated RBC % 0 Absolute Neutrophils 9.02 H Absolute Lymphocytes 3.53 H Absolute Monocytes 1.02 H Absolute Eosinophils 0.66 Absolute Basophils 0.04 Sodium 142 Potassium 4.1 Chloride 104 Carbon Dioxide 28.8 Anion Gap 9.2 BUN 24 H Creatinine 1.2 Estimated GFR/1.73 m2 >= 60.00 Glucose 91 Calcium 8.4 L [facility] Medical History (Updated 11/22/20 @ 10:04 by Sheryl Palacios NP) COPD (chronic obstructive pulmonary disease) COPD (chronic obstructive pulmonary disease) Emphysematous bleb of lung repeat cxr shows no signs of recurrence of PTX does have associate research scientist he follows up with. I did find an old CT chest and reviewed w/ him. Does show signif changes from COPD. signif blebs throughout entire lung. pt is not surgical candidate. cont pulm toilet no restrictions on activity at this time can use oil to remove tape residue. f/u w/ pulm to see if can find a better combo of inhalers to improve breathing HTN (hypertension) Ruptured emphysematous bleb on left lung Spontaneous pneumothorax Surgical History Arthroplasty of knee Colonoscopy - MAC (07/07/16) Social History Smoking/Tobacco Use Status: Former Tobacco Use Pack-years: 51 Tobacco: How many years used: 51 Smoking risk assessment performed?: Yes Alcohol Intake: current Alcohol Intake frequency: a few times a week Alcohol type: beer and hard liquor Drug use: Never Substance use type: does not use Household members: other Details: has a boarder to whom he rents a room Housing: house Current gender identity: male Do you feel safe at home: Yes Do you feel safe in your relationship?: Yes Additional Social history: 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
--- NOTE | 2020-11-27 13:02 | RESPIRATORY ---
Pt qualified for 2L o2 w/ ambulation and was set up with [facility]. Pt says he owns his Cpap and would prefer that his future Respiratory needs go thru [facility] as he finds [facility] too hard to get a hold of.
--- NOTE | 2020-11-27 19:21 | PDOC.CMDIS ---
- If Service Date Differs Date of service: 11/27/20 Time of Service: 19:21 LACE Index Scoring Tool - Questions: Length of Stay (in days): 4 - 6 Acuity (Admit via E.D.?): Yes Comorbidities: Chronic Pulmonary Disease E.D. Visits: 2 - Answers: Total Score: 11 Risk of Readmission: High Risk Care Management Discharge Reason for Hospitalization: PNA, PE Discharge Plan: Jimmy will return home and will have out patient follow up by [facility]. He will be driven home via private vehicle by family and will follow up with his PCP and discharge plan of care. Patient/Family Education Needs: Review discharge instructions regarding activity levels and medications, discussion of self care needs including ask me three.
== END 2020-11-27 13:45 | disposition home or self-care (01) | DRG 175 ==
LOC: ER 11-22 00:34 → MS 11-22 00:36
PROVIDERS: Nurse Practitioner; Nurse Practitioner Acute Care; Admitting Provider General Practice; Emergency Provider Emergency Medicine; PCP Family Medicine; Visit Provider General Practice
DX: I26.99 Other pulmonary embolism without acute cor pulmonale (principal); J18.9 Pneumonia, unspecified organism; J44.1 Chronic obstructive pulmonary disease with (acute) exacerbation; J44.0 Chronic obstructive pulmonary disease with (acute) lower respiratory infection; I10 Essential (primary) hypertension; Z87.891 Personal history of nicotine dependence; Z86.718 Personal history of other venous thrombosis and embolism
CPT/HCPCS: 36415; 71275; 80048; 80053; 82805; 85027; 87040; 87081; 87637; 93005; 94618; 94640; 96365; 96375; 99222; 99232; 99233; 99239; 99285; 80202; 82607; 82728; 82746; 83540; 83550; 83735; 84484; 85025; 85610; 85730; 87070; 87205; 93010; 93970; 94660; 94667; 94668; J2543; J2930; J3490; J7512; J7608; J7613; J7620

== ENCOUNTER 2021-01-06 14:31 | Outpatient (REF) | payer MEDICARE, BC, SELFPAY ==
[2021-01-06 20:21] LABS: BUN 14 mg/dL (7-18); CREATININE 1.1 mg/dL (0.70-1.30)
== END 2021-01-06 14:32 | disposition home or self-care (01) ==
LOC: NCHCN 14:31
PROVIDERS: PCP Family Medicine; Visit Provider Family Medicine
DX: J18.9 Pneumonia, unspecified organism (principal); I10 Essential (primary) hypertension
CPT/HCPCS: 84520; 82565

== ENCOUNTER 2021-01-10 02:18 | Outpatient (CLI) | payer MEDICARE, BC, SELFPAY ==
--- NOTE | 2021-01-10 12:37 | DI.RAD_ITS ---
EXAM: XR CHEST 2V PA LATERAL CLINICAL HISTORY: PE,I26.99,LT PNEUMOTHORAX,J93.9 TECHNIQUE: 2D digital imaging was performed. COMPARISON: CR XR CHEST 2V PA LATERAL from 10/19/2020 FINDINGS: MEDIASTINUM: Normal. HEART: Normal. PULMONARY VASCULATURE: Normal. LUNGS: There are infiltrates seen in the periphery of the left lung base and the right lower lobe. PLEURAL SPACE: No pleural effusion or pneumothorax. BONE:Within normal limits for the patient's age. OTHER FINDINGS:Normal. IMPRESSION: Bilateral basilar infiltrates. This may represent atelectasis or pneumonia. DATA REPOSITORY: RADIATION DOSE DELIVERED:
--- NOTE | 2021-01-10 13:05 | DI.CT_ITS ---
EXAM: CT CHEST PE CTA CLINICAL HISTORY: F/U PE,126.99,F/U LT PNEUMOTHORAX,J93.9. TECHNIQUE: Imaging Protocol: Axial CT angiography was performed with multi-slice acquisition and mu lti-planar and/or 3D reconstructions. CONTRAST MATERIAL: Intravenous: Omnipaque 350 Contrast volume:100 mL COMPARISON: CT CT CHEST PE CTA from 11/21/2020 FINDINGS: Tracheobronchial tree: Patent where visualized. Pulmonary parenchyma: There is an infiltrate in the right lower lobe with associated ground-glass opa cities. There is pulmonary scarring. Moderate centrilobular and paraseptal emphysema. Pulmonary Arteries: No evidence of filling defect to suggest pulmonary emboli. Mediastinum and Bere: No dominant adenopathy or fluid collection. Small hiatal hernia. Visualized thyroid gland: Unremarkable. Pleura: Small right pleural effusion versus pleural scarring. No pneumothorax. Heart: The heart is not dilated. Mild coronary artery calcification. No pericardial effusion. Aorta: Thoracic aorta non-dilated. Mild atherosclerosis. No dissection. Upper abdomen: Unremarkable. Soft tissues: Unremarkable. Bones: Within normal limits for the patient's age. IMPRESSION: 1. No evidence of pulmonary embolism, thoracic aortic dissection or aneurysm. 2. Centrilobular and paraseptal emphysema. 3. Right lower lobe infiltrate with associated ground-glass opacities. This may represent pneumonia. Please correlate clinically. RADIATION DOSE DELIVERED: 460.26mGy.cm Total DLP DATA REPOSITORY: All CT scans at this facility are submitted to the National Radiology Data Registry (NRDR) Dose Index Registry (DIR) with the [employer] (ACR). RADIATION OPTIMIZATION: All CT scans at this facility use at least one of these dose optimization te chniques: automated exposure control; mA and/or kV adjustment per patient size (includes targeted exa ms where dose is matched to clinical indication); or iterative reconstruction.
[2021-01-10] MEDS: Normal Saline - Diluent 50 ML VIAL IV (13:11)
[2021-01-10] MEDS: Omnipaque 350 MG/ML 100 ML BTL IJ (13:12)
[2021-01-10] MEDS: Normal Saline Flush 10 ML SYR IVP (13:13)
== END 2021-01-10 02:38 ==
PROVIDERS: PCP Family Medicine; Visit Provider Family Medicine
DX: I26.99 Other pulmonary embolism without acute cor pulmonale (principal); J93.83 Other pneumothorax; J43.2 Centrilobular emphysema; J98.4 Other disorders of lung
CPT/HCPCS: 71275; 71046; J3490

== ENCOUNTER 2021-03-24 13:35 | Outpatient (REF) | payer MEDICARE, BC, SELFPAY ==
[2021-03-24 15:32] LABS: HCT 41.2 % (40.0-50.0); HGB 13.3 g/dL (13.5-17.5); MCH 28.2 pg (27.0-33.0); MCHC 32.3 % (32.0-36.0); MCV 87.5 fL (80-95); MPV 9.3 fL (8.0-11.0); Platelet Count 317 10^3/uL (130-400); RBC 4.71 10^6/uL (4.36-5.78); RDW 12.9 % (11.8-14.1); RDW-SD 41.4 fL
[2021-03-24 15:50] LABS: ALT 31 U/L (16-63); AST 27 U/L (15-37); Albumin 3.5 g/dL (3.4-5.0); Alkaline Phosphatase 59 U/L (46-116); Anion Gap 9.5 mmol/L (3-11); BUN 11 mg/dL (7-18); Bilirubin, Total 0.4 mg/dL (0.2-1.0); CO2 26.5 mmol/L (21.0-32.0); CREATININE 1.1 mg/dL (0.70-1.30); Calcium 8.6 mg/dL (8.5-10.1); Calculated LDL 173 mg/dL (<100); Chloride 107 mmol/L (98-107); Cholesterol 227 mg/dL (<200); Glucose 96 mg/dL (74-106); HDL Cholesterol 41 mg/dL (40-60); Potassium 4.2 mmol/L (3.5-5.1); Sodium 143 mmol/L (136-145); Total Protein 6.9 g/dL (6.4-8.2); Triglyceride 67 mg/dL (<150)
== END 2021-03-24 13:36 | disposition home or self-care (01) ==
LOC: NCHCN 13:35
PROVIDERS: PCP Family Medicine; Visit Provider Family Medicine
DX: I26.99 Other pulmonary embolism without acute cor pulmonale (principal); E78.5 Hyperlipidemia, unspecified; I25.10 Atherosclerotic heart disease of native coronary artery without angina pectoris
CPT/HCPCS: 80053; 80061; 85027

== ENCOUNTER 2021-05-19 10:00 | Outpatient (RCR) | payer SELFPAY ==
[2021-05-08 00:15] VITALS: BP 134/88; PULSE 76
[2021-05-12 09:58] VITALS: BP 134/93; PULSE 73
[2021-05-17 10:29] VITALS: BP 158/93; PULSE 61
[2021-05-17 11:09] VITALS: BP 134/91; PULSE 77; O2SAT 94
[2021-05-19 10:15] VITALS: BP 151/90; PULSE 90; O2SAT 91
[2021-05-19 10:59] VITALS: BP 134/85; PULSE 101; O2SAT 94
== END 2021-06-07 23:59 | disposition home or self-care (01) ==
LOC: CR 10:00
PROVIDERS: PCP Family Medicine; Visit Provider Family Medicine

== ENCOUNTER → 2023-01-08 08:25 | Outpatient (BNVA) | payer MEDICARE, BC, SELFPAY | PROVIDERS: PCP Family Medicine; Referring Provider Family Medicine; Visit Provider Student in an Organized Health Care Education/Training Program | DX: M72.0 Palmar fascial fibromatosis [Dupuytren] (principal); M65.351 Trigger finger, right little finger | CPT/HCPCS: 99213 ==

== ENCOUNTER 2023-01-17 14:14 | Outpatient (CLI) | payer MEDICARE, BC, SELFPAY ==
--- NOTE | 2023-01-17 | DI.US_ITS ---
Exam(s) US LOWER EXTREMITY VENOUS RT EXAM: US LOWER EXTREMITY VENOUS RT CLINICAL HISTORY: SWELLING RT LEG, M79.89, REDNESS, WARMTH, SWELLING, ? BLOOD CLOT TECHNIQUE: Grayscale, color, and doppler imaging of the deep venous system of the right lower extrem ity was performed. COMPARISON: US US EXTREMITY VENOUS BI from 11/23/2020 FINDINGS: There is no evidence of intraluminal thrombus and there is normal compression and augmentation demons trated within the common femoral vein, femoral vein, and popliteal vein. In the ipsilateral calf the interrogated veins also exhibit normal compression/ augmentation properti es. The ipsilateral saphenofemoral junction is patent. IMPRESSION: 1. No evidence of DVT in the right lower extremity. DATA REPOSITORY:
== END 2023-01-17 14:34 ==
LOC: DI 14:14
PROVIDERS: PCP Family Medicine; Visit Provider Physician Assistant Medical
DX: M79.89 Other specified soft tissue disorders (principal); L53.8 Other specified erythematous conditions; R22.41 Localized swelling, mass and lump, right lower limb
CPT/HCPCS: 93971

== ENCOUNTER 2023-02-02 10:48 | Outpatient (REF) | payer MEDICARE, BC, SELFPAY ==
[2023-02-02 14:15] LABS: ALT 31 U/L (16-63); AST 21 U/L (15-37); Albumin 3.8 g/dL (3.4-5.0); Alkaline Phosphatase 71 U/L (46-116); Anion Gap 7.8 mmol/L (3-11); BUN 13 mg/dL (7-18); Bilirubin, Total 0.4 mg/dL (0.2-1.0); CO2 30.2 mmol/L (21.0-32.0); CREATININE 1.2 mg/dL (0.70-1.30); Calcium 9.2 mg/dL (8.5-10.1); Calculated LDL 169 mg/dL (<100); Chloride 102 mmol/L (98-107); Cholesterol 225 mg/dL (<200); Estimated GFR 65.46 (mL/min/1.73m2); Glucose 105 mg/dL (74-106); HDL Cholesterol 46 mg/dL (40-60); Potassium 4.5 mmol/L (3.5-5.1); Sodium 140 mmol/L (136-145); Total Protein 7.9 g/dL (6.4-8.2); Triglyceride 52 mg/dL (<150)
[2023-02-02 14:25] LABS: Vitamin D 25 Total 18.3 ng/mL (30-100)
== END 2023-02-02 10:49 | disposition home or self-care (01) ==
LOC: NCHCN 10:48
PROVIDERS: PCP Family Medicine; Visit Provider Family Medicine
DX: I10 Essential (primary) hypertension (principal); E78.5 Hyperlipidemia, unspecified; E55.9 Vitamin D deficiency, unspecified
CPT/HCPCS: 80053; 80061; 82306

== ENCOUNTER 2023-06-04 17:17 | Inpatient (IN) | payer MEDICARE, BC, SELFPAY ==
[2023-06-04] VITALS (7 sets, daily range): BP systolic 111–143; BP diastolic 78–95; PULSE 86–107; RESP 16–26; TEMP 36.9–38.1; O2SAT 89–94
--- NOTE | 2023-06-04 17:30 | RT.EKG_ITS ---
APPROVED REPORT Exam: Resting ECG Reason for Exam: sob Patient Location: E HR:94 bpm ECG Measurements Heart Rate 94 AXIS KS 149 P 72 QRSd 101 QRS 76 QT 350 T -1 QTc 439 Conclusion Sinus rhythm...normal P axis, V-rate 60- 99 sinus rhythm, normal axis, normal intervals, nonischemic
--- NOTE | 2023-06-04 17:44 | W.ED.GENAD ---
Discharge Plan Disposition Patient Disposition: Admit to [facility] Condition: Poor Discharge Details Clinical Impression: Pneumonia, COPD exacerbation Admit Date/Time: 06/04/23 22:46 Admit Provider: Alber Garcia Attending Provider: Alber Garcia Primary Care Provider: Susannah Malhotra ED Provider: Jenna Leblanc Discharge Data Discharge Date/Time-TO BE ENTERED AT DEPARTURE: 06/04/23 23:41 Medical Decision Making Patient is a pleasant 68-year-old male with past medical history significant for PE, COPD, multiple episodes of pneumonia, hypertension, ruptured emphysematous blebs who has not been on this medication secondary to insurance issues x3 weeks, presenting today with chief complaint of shortness of breath and cough. He reports a cough began about 2 weeks ago. Endorses increased sputum production. States that he has had a fever at home Tmax 102. Denies any chest pain. States that symptoms have progressively worsening. He does have a CPAP at home and is able to connect oxygen to this. No known sick contacts. He did have COVID in March or April of this year. Denies any sore throat, congestion, GI upset, rash or other associated symptoms. Had Tylenol just prior to arrival. On exam, patient appears slightly diaphoretic. He is coughing frequently and bringing up large amount of sputum. Does have crackles in the right lower lobe. No lower extremity edema or calf tenderness. He is currently on 2 L nasal cannula. We will begin patient on antibiotics. Presumed pneumonia based on history and exam. We will give nebulizer to help with the shortness of breath. Possible admission given his need for O2. We will also obtain chest x-ray CXR reviewed by radiologist: MEDIASTINUM: Normal.? HEART: Normal. PULMONARY VASCULATURE: Normal. LUNGS: There is bilateral interstitial fibrosis.? There are mild increased lung markings particularly in the right upper lobe in the left lower lobe compared to the prior examination.? A superimposed pneumonia cannot be excluded. PLEURAL SPACE: No pleural effusion or pneumothorax. BONE:Within normal limits for the patient's age.? OTHER FINDINGS:Normal.? IMPRESSION: Question of increased lung markings in the right upper lobe in the left lower lobe since the prior examination from 01/10/2021.? Superimposed pneumonia or interstitial edema cannot be excluded.? Please correlate clinically.? Pneumonia certainly most concerning. However, with him missing his Eliquis x3 weeks as well as elevated dimer, plan to move forward with a CTA as a muscle concern for potential PE. Discussed this plan with the patient who is in agreement. FINDINGS: Pulmonary arteries: The pulmonary arteries are normal in caliber. No evidence of acute pulmonary embolism. Aorta: The aorta is normal without evidence of aneurysmal dilatation, dissection or occlusive disease. Lungs: Chronic honeycombing and scarring present within the lung bases greater on the right than the left. Severe centrilobular emphysematous changes are present. There are diffuse interstitial infiltrates present. This may represent cardiogenic versus noncardiogenic edema. An acute inflammatory process and/or infectious process/pneumonia are not excluded. Pleural spaces: There is no evidence of pneumothorax. There are no pleural effusions present. Left lower lobe pleural based 2.1 x 1.5 cm mass best seen on image 38 series 4. For both low risk and high risk patients, consider CT Chest at 3 months, PET/CT, or biopsy. (Reference: Dorian). Heart: The cardiac structures are normal. The right ventricular to left ventricular ratio is abnormal measuring approximately 1.1. Consider pulmonary hypertension. Coronary arteries: There is mild atherosclerotic calcification of the coronary arteries. Mediastinal space: Thickening of the distal esophageal wall inflammation versus infiltrative process. Lymph nodes: There is mild mediastinal adenopathy present. There is no evidence of lymphadenopathy. Diaphragm: A small hiatal hernia is present. Spleen: Calcifications within the splenic parenchyma consistent with old granulomatous exposure. The spleen is otherwise normal. Bones/joints: The spine, sternum, ribs, and pectoral girdles show no evidence of acute abnormality. Soft tissues: There are no soft tissue masses or fluid collections. Upper abdominal viscera otherwise unremarkable. Other findings: The mediastinal structures are normal. IMPRESSION: 1. ? No evidence of acute pulmonary embolism. 2. ? The right ventricular to left ventricular ratio is abnormal measuring approximately 1.1. Consider pulmonary hypertension. 3. ? Severe centrilobular emphysematous changes are present. There are diffuse interstitial infiltrates present. This may represent cardiogenic versus noncardiogenic edema. An acute inflammatory process and/or infectious process/pneumonia are not excluded. 4. ? Left lower lobe pleural based 2.1 x 1.5 cm mass best seen on image 38 series 4. For both low risk and high risk patients, consider CT Chest at 3 months, PET/CT, or biopsy. (Reference: Dorian). Discussed with patient. He has received IV abx. He feels improved after the nebulizer. His SO obtained his meds and he took his typical anticoagulant. He agrees to admission for pneumonia, COPD exacerbation and O2 demand. Consulted with hopsitalist who agrees to admission. [facility] General Date/Time Provider Initiated Documentation: 06/04/23 17:31. Limitations to Documentation: no limitations. Information obtained by: patient, RN notes reviewed and old records reviewed. History of Present Illness 68 year old M presents to the emergency department with the chief complaint of SOB, cough, sputum production, described as moderate and similar to prior episodes, Quality is described as other (SOB), and is localized to the chest. Patient started experiencing this week(s) (2) and it has been constant. No relieving factors improve symptom(s), No exacerbating factors reported . Patient notes cough, fever/chills, malaise, rash and shortness of breath; denies chest pain, headaches, nausea/vomiting and syncope. Patient did receive the following treatments prior to arrival, none (has been off of medications for the past few weeks associated with insurance issue) Related Data Home Medications Medication Instructions Recorded Confirmed aspirin 81 mg tablet,delayed 81 mg PO UNKNOWN 06/15/16 06/04/23 release (Aspir-) ibuprofen 600 mg tablet 600 mg PO TID-QID PRN pain #60 tabs 02/28/19 06/04/23 lisinopril 2.5 mg tablet 5 mg PO DAILY 03/06/19 06/04/23 umeclidinium 62.5 mcg-vilanterol 1 inh inhalation Q24H 03/06/19 06/10/23 25 mcg/actuation powdr for inhalation (Anoro Ellipta) fluticasone propionate 220 1 puff inhalation BID #1 inh 03/17/19 06/04/23 mcg/actuation HFA aerosol inhaler (Flovent HFA) polyethylene glycol 3350 17 gram 17 g PO DAILY PRN PRN Constipation 03/17/19 01/08/23 oral powder packet #1 ea albuterol sulfate 1.25 mg/3 mL 1.25 mg inhalation PRN PRN 06/23/19 06/04/23 solution for nebulization apixaban 5 mg tablet (Eliquis) 5 mg PO BID 07/30/19 06/04/23 albuterol sulfate 90 mcg/actuation 2 puff inhalation Q6H PRN #1 inh 10/05/20 06/04/23 aerosol inhaler (Ventolin HFA) folic acid 1 mg tablet 1 mg PO DAILY #30 tabs 11/27/20 06/04/23 omeprazole 20 mg capsule,delayed 20 mg PO DAILY 12/11/22 06/04/23 release benzonatate 200 mg capsule 200 mg PO TID #30 caps 06/10/23 codeine 10 mg-guaifenesin 100 mg/5 5 ml PO Q12H PRN PRN #120 mL 06/10/23 mL oral liquid prednisone 20 mg tablet 40 mg PO DAILY #2 tabs 06/10/23 Previous Rx's Medication Instructions Recorded ibuprofen 600 mg tablet 600 mg PO TID-QID PRN pain #60 tabs 02/28/19 fluticasone propionate 220 1 puff inhalation BID #1 inh 03/17/19 mcg/actuation HFA aerosol inhaler (Flovent HFA) polyethylene glycol 3350 17 gram 17 g PO DAILY PRN PRN Constipation 03/17/19 oral powder packet #1 ea albuterol sulfate 90 mcg/actuation 2 puff inhalation Q6H PRN #1 inh 10/05/20 aerosol inhaler (Ventolin HFA) folic acid 1 mg tablet 1 mg PO DAILY #30 tabs 11/27/20 benzonatate 200 mg capsule 200 mg PO TID #30 caps 06/10/23 codeine 10 mg-guaifenesin 100 mg/5 5 ml PO Q12H PRN PRN #120 mL 06/10/23 mL oral liquid prednisone 20 mg tablet 40 mg PO DAILY #2 tabs 06/10/23 Allergies Allergy/AdvReac Type Severity Reaction Status Date / Time No Known Allergies Allergy Verified 06/04/23 18:21 General JUANA: 2 Review of Systems Constitutional Constitutional: Reports as per HPI, Denies chills, Denies headache(s) and Denies poor appetite ENT Ears, Nose, Mouth, and Throat: Denies dizziness and Denies headache(s) Cardiovascular Cardiovascular: Reports as per HPI Respiratory Respiratory: Reports as per HPI, Denies pain on inspiration and Denies pain with cough Gastrointestinal Gastrointestinal: Reports as per HPI, Denies abdominal pain, Denies diarrhea, Denies nausea and Denies vomiting Musculoskeletal Musculoskeletal: Reports as per HPI and Denies back pain Integumentary/Breasts Skin/Breast: Reports as per HPI and Denies rash Neurologic Neurologic: Reports as per HPI, Denies dizziness and Denies headache(s) PFSH All Active Problems (Updated 06/11/23 @ 18:32 by NIMO Rodríguez) Dupuytren's contracture of left hand (Acute) Pulmonary embolism (Chronic) COPD exacerbation (Acute) Pneumonia (Acute) Breath shortness (Acute) Dupuytren's contracture of right hand (Acute) s/p partial release Nodular fasciitis (Acute) At risk for stress ulcer (Acute) DVT prophylaxis (Acute) COPD with exacerbation (Acute) HTN (hypertension) (Chronic) COPD (chronic obstructive pulmonary disease) (Chronic) Emphysematous bleb of lung (Acute) repeat cxr shows no signs of recurrence of PTX does have peer health promoter he follows up with. I did find an old CT chest and reviewed w/ him. Does show signif changes from COPD. signif blebs throughout entire lung. pt is not surgical candidate. cont pulm toilet no restrictions on activity at this time can use oil to remove tape residue. f/u w/ pulm to see if can find a better combo of inhalers to improve breathing Ruptured emphysematous bleb (Acute) on left lung Medical History (Updated 06/11/23 @ 18:32 by NIMO Rodríguez) COPD (chronic obstructive pulmonary disease) Spontaneous pneumothorax Surgical History Arthroplasty of knee Colonoscopy - MAC (07/07/16) Social History Smoking/Tobacco Use Status: Former Tobacco Use Pack-years: 51 Tobacco: How many years used: 51 Smoking risk assessment performed?: Yes Alcohol Intake: current Alcohol Intake frequency: a few times a week Alcohol type: beer and hard liquor Drug use: Never Substance use type: does not use Household members: other Details: has a boarder to whom he rents a room Housing: apartment Current gender identity: male Do you feel safe at home: Yes Do you feel safe in your relationship?: Yes Additional Social history: 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 [employer]; 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 Exam Const General: cooperative, comfortable, no acute distress, well developed and ill appearing acutely and chronically Nutritional Appearance: well nourished and overweight Orientation: alert, awake and oriented x3 [facility] Head: normal to inspection Ears: hearing grossly normal bilaterally Mouth: moist mucous membranes Chest Chest: normal inspection of the chest, normal palpation of entire chest wall and no crepitus Resp Effort & Inspection: normal respiratory effort (on 2L NC), able to speak in complete sentences and no respiratory distress Auscultation: crackles on the right in the lower lung reid, no rales, no rhonchi and wheezes expiratory wheezes (scattered) Cardio Rate: regular rate Rhythm: regular rhythm Heart Sounds: S1 normal and S2 normal GI Inspection: normal to inspection, no edema and non-distended Palpation: soft, no hepatosplenomegaly, not firm, no guarding, not rigid and nontender Auscultation: normal bowel sounds Skin General skin exam: no rashes or lesions noted Trauma: no lacerations or abrasions Neuro General: patient alert, patient awake and patient oriented x3 Cognition: normal cognition Speech: speech normal Gait: normal gait Extrem General: normal to inspection, capillary refill normal, no pedal edema, no calf tenderness and normal gait
--- NOTE | 2023-06-04 18:15 | DI.RAD_ITS ---
Exam(s) XR CHEST 2V PA LATERAL EXAM: XR CHEST 2V PA LATERAL CLINICAL HISTORY: cough TECHNIQUE: 2D digital imaging was performed of the chest. Two images were obtained. PA and lateral views were obtained. COMPARISON: CR XR CHEST 2V PA LATERAL from 01/10/2021 FINDINGS: MEDIASTINUM: Normal. HEART: Normal. PULMONARY VASCULATURE: Normal. LUNGS: There is bilateral interstitial fibrosis. There are mild increased lung markings particularly in the right upper lobe in the left lower lobe compared to the prior examination. A superimposed pn eumonia cannot be excluded. PLEURAL SPACE: No pleural effusion or pneumothorax. BONE:Within normal limits for the patient's age. OTHER FINDINGS:Normal. IMPRESSION: Question of increased lung markings in the right upper lobe in the left lower lobe since the prior ex amination from 01/10/2021. Superimposed pneumonia or interstitial edema cannot be excluded. Please co rrelate clinically. DATA REPOSITORY: RADIATION DOSE DELIVERED:
[2023-06-04 18:26] LABS: Abs Immature Grans 0.05 10^3/uL (0.0-0.06); Absolute Basophil Count 0.08 10^3/uL (0.0-0.2); Absolute Eosinophil Count 0.13 10^3/uL (0.0-0.7); Absolute Neutrophil Count 6.97 10^3/uL (1.2-6.7); Basophils % 0.8; Eosinophils % 1.3; Immature Grans % 0.5; Lymphocytes % 12.3; MCH 29.6 pg (27.0-33.0); MCHC 33.3 % (32.0-36.0); MCV 89 fL (80-95); Monocytes % 13.4; Neutrophils % 71.7; Platelet Count 255 10^3/uL (130-400); RBC 4.06 10^6/uL (4.36-5.78); RDW 12.9 % (11.8-14.1); RDW-SD 42.3 fL; WBC 9.73 10^3/uL (4.4-10.8)
[2023-06-04 18:50] LABS: ALT 26 U/L (16-63); AST 21 U/L (15-37); Alkaline Phosphatase 57 U/L (46-116); Anion Gap 9.9 mmol/L (3-11); BUN 16 mg/dL (7-18); Bilirubin, Total 0.8 mg/dL (0.2-1.0); CO2 26.1 mmol/L (21.0-32.0); CREATININE 1.2 mg/dL (0.70-1.30); Calcium 8.5 mg/dL (8.5-10.1); Chloride 99 mmol/L (98-107); Estimated GFR 65.06 (mL/min/1.73m2); Glucose 127 mg/dL (74-106); Magnesium 1.7 mg/dL (1.8-2.4); Potassium 3.6 mmol/L (3.5-5.1); Sodium 135 mmol/L (136-145); Total Protein 7.7 g/dL (6.4-8.2); Troponin I < 50 ng/L (<or=60)
[2023-06-04] MEDS: Albuterol/Ipratropium 3 ML UPD VIAL UPD (18:56)
[2023-06-04 18:59] LABS: D-Dimer 1994 ng/mlFEU (<500)
[2023-06-04] MEDS: DOXYCYCLINE 100 MG in Normal Saline 100 ML IVPB (19:00)
[2023-06-04] MEDS: cefTRIAXone 1 GM/50 ML BAG IVPB (19:00)
[2023-06-04 19:32] LABS: COVID-19 PCR Negative (Negative); Influenza A PCR Negative (Negative); Influenza B PCR Negative (Negative); RSV PCR Negative (Negative)
[2023-06-04 19:35] LABS: Source Nasopharynx
--- NOTE | 2023-06-04 20:00 | DI.CT_ITS ---
Exam(s) CT CHEST PE CTA EXAM: CT CHEST PE CTA CLINICAL HISTORY: SOB, cough, elevated d-dimer, hx of PE and missed. TECHNIQUE: Imaging Protocol: Axial CT angiography was performed with multi-slice acquisition and mu lti-planar and/or 3D reconstructions. CONTRAST MATERIAL: Intravenous: Omnipaque 350 contrast volume:100 mL COMPARISON: CT CHEST FOR PULMONARY EMBOLUS from 11/28/[address] CHEST PE CTA from 01/10/[address] CHEST WO from 12/28/2021 FINDINGS: Tracheobronchial tree: Patent where visualized. Pulmonary parenchyma: There is diffuse pulmonary fibrosis. Centrilobular emphysematous changes are pr esent. There are diffuse interstitial infiltrates present. Particularly in the posterior aspect of th e right upper lobe and the left lower lobe. There is a nodular area in the posterior aspect of the le ft lower lobe. It measures 2.1 x 1.5 cm. Pulmonary Arteries: No evidence of filling defect to suggest pulmonary emboli. Mediastinum and Bere: Mildly enlarged lymph nodes are seen in the mediastinum. Esophagus is grossly u nremarkable. Visualized thyroid gland: Unremarkable. Pleura: No effusion or pneumothorax. Heart: The heart is not dilated. [id number] coronary artery calcification is present. No peric ardial effusion. The RV to LV ratio is greater than 1. Findings raise a question of pulmonary hypert ension. Aorta: Thoracic aorta non-dilated. No evidence of dissection. Atherosclerosis. Upper abdomen: There again seen hypodensities in the liver. Calcified granuloma are seen in the spl een. Soft tissues: Unremarkable. Bones: Within normal limits for the patient's age. IMPRESSION: 1. No evidence of pulmonary embolism, thoracic aortic dissection or aneurysm. 2. Findings raising question of pulmonary hypertension. 3. Left lower lobe 2.1 x 1.5 cm mass. For both low risk and high-risk patients, CT scan at 3 months o r PET-CT or biopsy is recommended. (Taryn et al, 2017). 4. Diffuse interstitial infiltrates which may be cardiogenic versus noncardiogenic edema. Inflammator y infectious process cannot be excluded. Unexpected findings RADIATION DOSE DELIVERED: 525.07mGy.cm Total DLP DATA REPOSITORY: All CT scans at this facility are submitted to the National Radiology Data Registry (NRDR) Dose Index Registry (DIR) with the [employer] (ACR). RADIATION OPTIMIZATION: All CT scans at this facility use at least one of these dose optimization te chniques: automated exposure control; mA and/or kV adjustment per patient size (includes targeted exa ms where dose is matched to clinical indication); or iterative reconstruction.
[2023-06-04] MEDS: Omnipaque 350 MG/ML 100 ML BTL IJ (20:58)
[2023-06-04] MEDS: Normal Saline - Diluent 50 ML VIAL IV (21:33)
--- NOTE | 2023-06-04 22:08 | DI.VRAD_ITS ---
PROCEDURE INFORMATION: Exam: CTA Chest With Contrast Exam date and time: 06/04/2023 9:27 PM Age: 68 years old Clinical indication: Cough and shortness of breath; Patient HX: SOB, cough, elevated d-dimer, HX of pe and missed TECHNIQUE: Imaging protocol: Computed tomographic angiography of the chest with contrast. Exam focused on the arteries. 3D rendering (Not supervised by radiologist): MIP and/or 3D reconstructed images were created by the technologist. Radiation optimization: All CT scans at this facility use at least one of these dose optimization techniques: automated exposure control; mA and/or kV adjustment per patient size (includes targeted exams where dose is matched to clinical indication); or iterative reconstruction. Contrast material: OMNIPAQUE 350; Contrast volume: 100 ml; Contrast route: INTRAVENOUS (IV); COMPARISON: CT CHEST PE CTA 01/10/2021 12:59 PM FINDINGS: Pulmonary arteries: The pulmonary arteries are normal in caliber. No evidence of acute pulmonary embolism. Aorta: The aorta is normal without evidence of aneurysmal dilatation, dissection or occlusive disease. Lungs: Chronic honeycombing and scarring present within the lung bases greater on the right than the left. Severe centrilobular emphysematous changes are present. There are diffuse interstitial infiltrates present. This may represent cardiogenic versus noncardiogenic edema. An acute inflammatory process and/or infectious process/pneumonia are not excluded. Pleural spaces: There is no evidence of pneumothorax. There are no pleural effusions present. Left lower lobe pleural based 2.1 x 1.5 cm mass best seen on image 38 series 4. For both low risk and high risk patients, consider CT Chest at 3 months, PET/CT, or biopsy. (Reference: Dorian). Heart: The cardiac structures are normal. The right ventricular to left ventricular ratio is abnormal measuring approximately 1.1. Consider pulmonary hypertension. Coronary arteries: There is mild atherosclerotic calcification of the coronary arteries. Mediastinal space: Thickening of the distal esophageal wall inflammation versus infiltrative process. Lymph nodes: There is mild mediastinal adenopathy present. There is no evidence of lymphadenopathy. Diaphragm: A small hiatal hernia is present. Spleen: Calcifications within the splenic parenchyma consistent with old granulomatous exposure. The spleen is otherwise normal. Bones/joints: The spine, sternum, ribs, and pectoral girdles show no evidence of acute abnormality. Soft tissues: There are no soft tissue masses or fluid collections. Upper abdominal viscera otherwise unremarkable. Other findings: The mediastinal structures are normal. IMPRESSION: 1. No evidence of acute pulmonary embolism. 2. The right ventricular to left ventricular ratio is abnormal measuring approximately 1.1. Consider pulmonary hypertension. 3. Severe centrilobular emphysematous changes are present. There are diffuse interstitial infiltrates present. This may represent cardiogenic versus noncardiogenic edema. An acute inflammatory process and/or infectious process/pneumonia are not excluded. 4. Left lower lobe pleural based 2.1 x 1.5 cm mass best seen on image 38 series 4. For both low risk and high risk patients, consider CT Chest at 3 months, PET/CT, or biopsy. (Reference: Dorian). REFERENCES: Luciehocheri H, et al. Guidelines for Management of Incidental Pulmonary Nodules Detected on CT Images: From the Fleischner Society 2017. Radiology. 2017;284(1):228-243. Dictated and Authenticated by: Ambrosio Wallis MD. Ordering:CHAIM West MD
--- NOTE | 2023-06-04 22:33 | W.PM.HP.N ---
Date of service: 06/04/23 Time of Service: 22:33 Assessment and Plan Assessment and plan (1) Pneumonia: Status: Acute Assessment and plan: Pneumonia, perhaps atypical given imaging. Will continue Rocephin, switch out Doxy to Zithro, check Legionella antigen. COPD: scheduled updrafts, hold steroids for now Recurrent PE: resume DOAC (had been out for several weeks) ADs: requests Full Code History of Present Illness History of Present Illness Chief Complaint: cough, SOB Narrative: 68 male with h/o COPD, prior pneumonia, PE -- here with two weeks of increasing cough (green/brown sputum), SOB and febrile at home. No CP. Here in ER findings of note for absence of fever, initial RA sats in 80s and diffuse wheeze. Normal white count, CXR with question RUL infiltrate along with diffuse interstitial pattern, and CT negative for PE with diffuse interstitial infiltrates. Viral swab triple negative. Received Duoneb, and then Rocephin and Doxy and placed on 2L NC with sats to low 90s. I was asked to evaluate for admission. States he feels somewhat better. Review of Systems Narrative: per HPI PFSH All Active Problems Dupuytren's contracture of left hand (Acute) Discharge planning issues (Acute) DVT prophylaxis (Acute) Pneumonia (Acute) Pulmonary embolism (Chronic) COPD exacerbation (Acute) Pneumonia (Acute) Breath shortness (Acute) Dupuytren's contracture of right hand (Acute) s/p partial release Nodular fasciitis (Acute) At risk for stress ulcer (Acute) DVT prophylaxis (Acute) COPD with exacerbation (Acute) HTN (hypertension) (Chronic) COPD (chronic obstructive pulmonary disease) (Chronic) Emphysematous bleb of lung (Acute) repeat cxr shows no signs of recurrence of PTX does have produce team member he follows up with. I did find an old CT chest and reviewed w/ him. Does show signif changes from COPD. signif blebs throughout entire lung. pt is not surgical candidate. cont pulm toilet no restrictions on activity at this time can use oil to remove tape residue. f/u w/ pulm to see if can find a better combo of inhalers to improve breathing Ruptured emphysematous bleb (Acute) on left lung Medical History COPD (chronic obstructive pulmonary disease) Spontaneous pneumothorax Surgical History Arthroplasty of knee Colonoscopy - MAC (07/07/16) Social History Smoking/Tobacco Use Status: Former Tobacco Use Pack-years: 51 Tobacco: How many years used: 51 Smoking risk assessment performed?: Yes Alcohol Intake: current Alcohol Intake frequency: a few times a week Alcohol type: beer and hard liquor Drug use: Never Substance use type: does not use Household members: other Details: has a boarder to whom he rents a room Housing: house Current gender identity: male Do you feel safe at home: Yes Do you feel safe in your relationship?: Yes Additional Social history: 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[employer]; 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 Meds Allergies and Home Medications Allergies Allergy/AdvReac Type Severity Reaction Status Date / Time No Known Allergies Allergy Verified 06/04/23 18:21 Home Medications Medication Instructions Recorded Confirmed Type aspirin 81 mg tablet,delayed 81 mg PO UNKNOWN 06/15/16 06/04/23 History release (Aspir-) ibuprofen 600 mg tablet 600 mg PO TID-QID PRN pain #60 tabs 02/28/19 06/04/23 Rx lisinopril 2.5 mg tablet 5 mg PO DAILY 03/06/19 06/04/23 History umeclidinium 62.5 mcg-vilanterol 1 inh inhalation Q24H 03/06/19 06/04/23 History 25 mcg/actuation powdr for inhalation (Anoro Ellipta) fluticasone propionate 220 1 puff inhalation BID #1 inh 03/17/19 06/04/23 Rx mcg/actuation HFA aerosol inhaler (Flovent HFA) polyethylene glycol 3350 17 gram 17 g PO DAILY PRN PRN Constipation 03/17/19 01/08/23 Rx oral powder packet #1 ea albuterol sulfate 1.25 mg/3 mL 1.25 mg inhalation PRN PRN 06/23/19 06/04/23 History solution for nebulization apixaban 5 mg tablet (Eliquis) 5 mg PO BID 07/30/19 06/04/23 History albuterol sulfate 90 mcg/actuation 2 puff inhalation Q6H PRN #1 inh 10/05/20 06/04/23 Rx aerosol inhaler (Ventolin HFA) folic acid 1 mg tablet 1 mg PO DAILY #30 tabs 11/27/20 06/04/23 Rx metformin 500 mg tablet 500 mg PO BID 12/11/22 06/04/23 History omeprazole 20 mg capsule,delayed 20 mg PO DAILY 12/11/22 06/04/23 History release nirmatrelvir 300 mg (150 mg See Rx Instructions PO .COMPLEX 04/01/23 Rx x2)-ritonavir 100 mg tablet,dose #30 dose pk pack (Paxlovid) Exam Narrative Exam Narrative: 114/78, 90, 36.9, 16, 94% 2L. HEENT atraumatic; neck supple; lungs diminished, heart distant/RRR; abdomen soft and NT; extremities w/o edema; neuro Ox3, lucid, moves all 4s Results Labs 06/04/23 18:11 06/04/23 18:11 Labs: Laboratory Results - last 24 hr 06/04/23 06/04/23 06/04/23 18:11 18:11 18:11 WBC 9.73 RBC 4.06 L Hgb 12.0 L Hct 36.0 L MCV 89 MCH 29.6 MCHC 33.3 RDW 12.9 Plt Count 255 MPV 9.0 Immature Gran % 0.5 Neutrophils % 71.7 Lymphocytes % 12.3 Monocytes % 13.4 Eosinophils % 1.3 Basophils % 0.8 Nucleated RBC % 0.0 Absolute Neutrophils 6.97 H Absolute Lymphocytes 1.20 Absolute Monocytes 1.30 H Absolute Eosinophils 0.13 Absolute Basophils 0.08 D-Dimer 1994 H Sodium 135 L Potassium 3.6 Chloride 99 Carbon Dioxide 26.1 Anion Gap 9.9 BUN 16 Creatinine 1.2 Est GFR (CKD-EPI 2020) 65.06 Glucose 127 H Calcium 8.5 Magnesium 1.7 L Total Bilirubin 0.8 AST 21 ALT 26 Alkaline Phosphatase 57 Troponin I < 50 Total Protein 7.7 Albumin 3.0 L COVID-19 Source SARS-CoV-2 (PCR) Influenza Type A (PCR) Influenza Type B (PCR) RSV (PCR) 06/04/23 18:47 WBC RBC Hgb Hct MCV MCH MCHC RDW Plt Count MPV Immature Gran % Neutrophils % Lymphocytes % Monocytes % Eosinophils % Basophils % Nucleated RBC % Absolute Neutrophils Absolute Lymphocytes Absolute Monocytes Absolute Eosinophils Absolute Basophils D-Dimer Sodium Potassium Chloride Carbon Dioxide Anion Gap BUN Creatinine Est GFR (CKD-EPI 2020) Glucose Calcium Magnesium Total Bilirubin AST ALT Alkaline Phosphatase Troponin I Total Protein Albumin COVID-19 Source Nasopharynx SARS-CoV-2 (PCR) Negative Influenza Type A (PCR) Negative Influenza Type B (PCR) Negative RSV (PCR) Negative Last Vital Signs Temp 36.9 C 06/04/23 17:32 Pulse 90 06/04/23 20:20 Resp 16 06/04/23 20:20 BP 114/78 06/04/23 20:20 Pulse Ox 94 06/04/23 20:20 Time Spent Time spent with Patient: 40-54 minutes Time was spent: preparing to see the patient(eg.review tests), obtaining and/or reviewing separately otained hiistory, ordering medications,tests, procedures, referring, communicating with other health healthcare educator and indepentently interpreting results
[2023-06-05] VITALS (10 sets, daily range): BP systolic 95–122; BP diastolic 68–76; PULSE 63–101; RESP 1–22; TEMP 37–38.3; O2SAT 93–97
[2023-06-05] MEDS: Aspirin E.C. 81 MG TABEC PO (00:10)
[2023-06-05] MEDS: Albuterol 2.5 MG/3 ML INH SOLN VIAL UPD (00:14)
[2023-06-05] MEDS: AZITHROMYCIN 500 MG in Normal Saline 250 ML 250 MG IVPB (00:14)
[2023-06-05] MEDS: Acetaminophen 325 MG TAB 650 MG PO ×4 (00:14→20:42)
[2023-06-05] MEDS: Water,Injection,Sterile 10 ML VIAL (00:49)
[2023-06-05] MEDS: Albuterol/Ipratropium 3 ML UPD VIAL UPD ×3 (07:55→20:44)
[2023-06-05] MEDS: Apixaban 5 MG TAB PO ×2 (08:04→20:43)
[2023-06-05] MEDS: Folic Acid 1 MG TAB PO (08:04)
[2023-06-05] MEDS: Omeprazole 20 MG CAPCR PO (08:04)
[2023-06-05] MEDS: Lisinopril 2.5 MG TAB 5 MG PO (08:04)
[2023-06-05] MEDS: Mometasone 220 MCG 14 DOSE INHALER 1 PUFF IH ×2 (08:52→20:44)
--- NOTE | 2023-06-05 10:57 | RESPIRATORY ---
RT spoke with patient concerning the use of home oxygen. Patient states his baseline is 2L at home PRN, the DME is [facility].
[2023-06-05] MEDS: Normal Saline Flush 10 ML SYR IVP (11:36)
[2023-06-05] MEDS: Furosemide 20 MG/2 ML VIAL IVP (11:37)
[2023-06-05] MEDS: Polyethylene Glycol 3350 17 GM PACKET PO ×2 (11:37→20:42)
--- NOTE | 2023-06-05 15:03 | W.PM.PROGNOT ---
Date of Service Date of service: 06/05/23 Time of Service: 15:03 Assessment and Plan Assessment and plan (1) Pneumonia: Status: Acute Assessment and plan: Continue azithromycin, ceftriaxone Check urine for strep antigen. Check mycoplasma Legionella studies. Continue ipratropium with albuterol MDIs every 6 hours along with as needed albuterol. IS acapella Qualifiers: Laterality: bilateral Lung location: lower lobe of lung Pneumonia type: due to unspecified organism Qualified Code(s): J18.9 - Pneumonia, unspecified organism (2) COPD exacerbation: Status: Acute Assessment and plan: Treatment as above Subjective Subjective Patient reports: no new complaints, tolerating a regular diet, bowel movement and fever; denies diarrhea or vomiting Exam Const General: cooperative, comfortable, no acute distress and ill appearing (older appearing than stated age) chronically Nutritional Appearance: overweight Orientation: alert, awake and oriented x3 HENMT Head: normal to inspection, normocephalic and atraumatic Mouth: oral mucosae normal Chest Chest: normal inspection of the chest Resp Effort & Inspection: normal respiratory effort Auscultation: no wheezes Cardio Rate: regular rate Rhythm: regular rhythm GI Inspection: normal to inspection, distended and obesity Palpation: soft Auscultation: normal bowel sounds Skin General skin exam: no rashes or lesions noted Neuro General: patient alert, patient awake, patient oriented x3 and moves all extremities Extrem General: normal to inspection and full ROM Objective Last Vital Signs Temp 37.0 C 06/05/23 07:01 Pulse 90 06/05/23 13:59 Resp 18 06/05/23 13:59 BP 110/76 06/05/23 07:01 Pulse Ox 96 06/05/23 13:59 Laboratory Results - last 24 hr 06/04/23 06/04/23 06/04/23 18:11 18:11 18:11 WBC 9.73 RBC 4.06 L Hgb 12.0 L Hct 36.0 L MCV 89 MCH 29.6 MCHC 33.3 RDW 12.9 Plt Count 255 MPV 9.0 Immature Gran % 0.5 Neutrophils % 71.7 Lymphocytes % 12.3 Monocytes % 13.4 Eosinophils % 1.3 Basophils % 0.8 Nucleated RBC % 0.0 Absolute Neutrophils 6.97 H Absolute Lymphocytes 1.20 Absolute Monocytes 1.30 H Absolute Eosinophils 0.13 Absolute Basophils 0.08 D-Dimer 1993 H Sodium 135 L Potassium 3.6 Chloride 99 Carbon Dioxide 26.1 Anion Gap 9.9 BUN 16 Creatinine 1.2 Est GFR (CKD-EPI 2020) 65.06 Glucose 127 H Calcium 8.5 Magnesium 1.7 L Total Bilirubin 0.8 AST 21 ALT 26 Alkaline Phosphatase 57 Troponin I < 50 Total Protein 7.7 Albumin 3.0 L COVID-19 Source SARS-CoV-2 (PCR) Influenza Type A (PCR) Influenza Type B (PCR) RSV (PCR) 06/04/23 18:47 WBC RBC Hgb Hct MCV MCH MCHC RDW Plt Count MPV Immature Gran % Neutrophils % Lymphocytes % Monocytes % Eosinophils % Basophils % Nucleated RBC % Absolute Neutrophils Absolute Lymphocytes Absolute Monocytes Absolute Eosinophils Absolute Basophils D-Dimer Sodium Potassium Chloride Carbon Dioxide Anion Gap BUN Creatinine Est GFR (CKD-EPI 2020) Glucose Calcium Magnesium Total Bilirubin AST ALT Alkaline Phosphatase Troponin I Total Protein Albumin COVID-19 Source Nasopharynx SARS-CoV-2 (PCR) Negative Influenza Type A (PCR) Negative Influenza Type B (PCR) Negative RSV (PCR) Negative Time Spent with Patient Time Spent with Patient: 35-49 minutes Time was spent: preparing to see the patient(eg.review tests), ordering medications,tests, procedures, referring, communicating with other health human services care specialist, indepentently interpreting results, counseling the patient and care coordination
--- NOTE | 2023-06-05 15:16 | INITIAL_ITS ---
Date of service: 06/05/23 Time of Service: 15:16 Care Management Initial Assmt Initial Assessment REASON FOR HOSPITALIZATION:: Pneumonia PREVIOUS FUNCTIONAL STATUS/SOCIAL/FAMILY SUPPORTS:: Jeremiah lives in [facility] at the [facility]. He is independent with his ADL's and LILLIAN's at baseline and drives. He has a daughter who lives in [place] and is a teacher. He has a brother that lives locally and will transport him home. 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 CURRENT FUNCTIONAL STATUS:: Jeremiah was lying in bed when CM met with him. He is awake and easily engages in conversation for the purpose of this initial assessment. Jeremiah shares that he has [employer] and rarely has to cook. ADVANCE DIRECTIVES:: On file Has patient been provided with info about the portal/API?: Yes Did the patient sign up for the portal?: No CODE STATUS:: Full Code INSURANCE COVERAGE / FINANCIAL ISSUES:: [place] of [place] Medicare CURRENT HOME/COMMUNITY SERVICES/EQUIPMENT:: Home O2 through [place]: concentrator and portable tank PRIMARY CARE PHYSICIAN:: Susannah Malhotra POTENTIAL DISCHARGE NEEDS:: Evaluations for further needs, follow up appointments. PATIENT/FAMILY EDUCATION NEEDS:: Review discharge instructions, limitations, medications and plan to follow up with community providers. Discuss ask me three. ANTICIPATED BARRIERS TO DISCHARGE:: None identified TRANSPORTATION:: Via private vehicle with brother PLAN:: Anticipate Jimmy will return home when medically cleared by MD. He will be driven home via private vehicle with brother when ready. He will find someone to bring his portable O2, prior to discharge. He will follow up with his PCP and discharge plan of care. CM will continue to follow. PFSH All Active Problems Dupuytren's contracture of left hand (Acute) Discharge planning issues (Acute) DVT prophylaxis (Acute) Pneumonia (Acute) Pulmonary embolism (Chronic) COPD exacerbation (Acute) Pneumonia (Acute) Breath shortness (Acute) Dupuytren's contracture of right hand (Acute) s/p partial release Nodular fasciitis (Acute) At risk for stress ulcer (Acute) DVT prophylaxis (Acute) COPD with exacerbation (Acute) HTN (hypertension) (Chronic) COPD (chronic obstructive pulmonary disease) (Chronic) Emphysematous bleb of lung (Acute) repeat cxr shows no signs of recurrence of PTX does have general manager [employer] he follows up with. I did find an old CT chest and reviewed w/ him. Does show signif changes from COPD. signif blebs throughout entire lung. pt is not surgical candidate. cont pulm toilet no restrictions on activity at this time can use oil to remove tape residue. f/u w/ pulm to see if can find a better combo of inhalers to improve breathing Ruptured emphysematous bleb (Acute) on left lung Medical History COPD (chronic obstructive pulmonary disease) Spontaneous pneumothorax Surgical History Arthroplasty of knee Colonoscopy - MAC (07/07/16) Social History Smoking/Tobacco Use Status: Former Tobacco Use Pack-years: 51 Tobacco: How many years used: 51 Smoking risk assessment performed?: Yes Alcohol Intake: current Alcohol Intake frequency: a few times a week Alcohol type: beer and hard liquor Drug use: Never Substance use type: does not use Household members: other Details: has a boarder to whom he rents a room Housing: apartment Current gender identity: male Do you feel safe at home: Yes Do you feel safe in your relationship?: Yes 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
[2023-06-05] MEDS: guaiFENesin 600 MG TABCR PO (17:01)
[2023-06-05] MEDS: Benzonatate 200 MG CAP PO ×2 (17:02→20:44)
[2023-06-05 17:18] LABS: Source Nasal/Nares
[2023-06-05 17:58] LABS: COVID-19 PCR Negative (Negative)
[2023-06-05] MEDS: cefTRIAXone 1 GM/50 ML BAG IVPB (20:48)
[2023-06-05] MEDS: AZITHROMYCIN 250 MG in Normal Saline 250 ML IVPB (21:37)
[2023-06-05 23:05] LABS: Legionella Ag Detection Urine Negative (Negative)
[2023-06-06] VITALS (7 sets, daily range): BP systolic 107–123; BP diastolic 72–85; PULSE 80–97; RESP 2–24; TEMP 37–37.2; O2SAT 92–95
[2023-06-06] MEDS: Omeprazole 20 MG CAPCR PO (07:53)
[2023-06-06] MEDS: Apixaban 5 MG TAB PO ×2 (07:53→20:54)
[2023-06-06] MEDS: Folic Acid 1 MG TAB PO (07:54)
[2023-06-06] MEDS: Benzonatate 200 MG CAP PO ×3 (07:54→20:55)
[2023-06-06] MEDS: guaiFENesin 600 MG TABCR PO ×2 (07:54→20:55)
[2023-06-06] MEDS: Lisinopril 2.5 MG TAB 5 MG PO (07:54)
[2023-06-06] MEDS: Acetaminophen 325 MG TAB 650 MG PO ×2 (07:59→20:53)
[2023-06-06] MEDS: Albuterol/Ipratropium 3 ML UPD VIAL UPD ×3 (08:31→19:10)
[2023-06-06] MEDS: Mometasone 220 MCG 14 DOSE INHALER 1 PUFF IH ×2 (08:34→21:08)
[2023-06-06 11:47] LABS: Abs Immature Grans 0.06 10^3/uL (0.0-0.06); Absolute Basophil Count 0.09 10^3/uL (0.0-0.2); Absolute Eosinophil Count 0.54 10^3/uL (0.0-0.7); Absolute Monocyte Count 1.24 10^3/uL (0.1-0.8); Absolute Neutrophil Count 7.05 10^3/uL (1.2-6.7); Basophils % 0.9; Eosinophils % 5.1; HCT 37.8 % (40.0-50.0); HGB 12.5 g/dL (13.5-17.5); Immature Grans % 0.6; Lymphocytes % 15.1; MCH 29.3 pg (27.0-33.0); MCHC 33.1 % (32.0-36.0); MCV 89 fL (80-95); MPV 8.8 fL (8.0-11.0); Monocytes % 11.7; Neutrophils % 66.6; Platelet Count 287 10^3/uL (130-400); RBC 4.27 10^6/uL (4.36-5.78); RDW 12.9 % (11.8-14.1); RDW-SD 41.5 fL; WBC 10.58 10^3/uL (4.4-10.8)
[2023-06-06 12:02] LABS: Anion Gap 8.1 mmol/L (3-11); BUN 16 mg/dL (7-18); CO2 27.9 mmol/L (21.0-32.0); CREATININE 1.1 mg/dL (0.70-1.30); Calcium 9.2 mg/dL (8.5-10.1); Chloride 99 mmol/L (98-107); Estimated GFR 72.22 (mL/min/1.73m2); Glucose 133 mg/dL (74-106); Potassium 3.8 mmol/L (3.5-5.1); Sodium 135 mmol/L (136-145)
--- NOTE | 2023-06-06 13:00 | W.PM.PROGNOT ---
Date of Service Date of service: 06/06/23 Time of Service: 13:00 Assessment and Plan Assessment and plan (1) Pneumonia: Status: Acute Assessment and plan: Continue azithromycin, ceftriaxone day 2? pending urine for strep antigen and mycoplasma Legionella studies.? continue acapella and updrafts blood cultures negative so far, wean oxygen as able. Qualifiers: Pneumonia type: due to unspecified organism Laterality: bilateral Lung location: lower lobe of lung Qualified Code(s): J18.9 - Pneumonia, unspecified organism (2) COPD exacerbation: Status: Acute Assessment and plan: Continue nebs, consider steroids Benzonatate and guaifenen PRN Wean oxygen discussed with Dr Blackwell Subjective Subjective Patient reports: no new complaints, tolerating a regular diet, voiding w/o difficulty, bowel movement and afebrile; denies diarrhea, nausea or vomiting Interval history since last seen: Jeremiah is awake and alert, sitting in the chair. He is eating well, had a full breakfast and lunch. He feels like his breathing is better. He is able to speak in full sentences, he denies CP, abd pain. Exam Const General: cooperative, comfortable, no acute distress and ill appearing (older appearing than stated age) chronically Orientation: alert, awake and oriented x3 HENMT Head: normal to inspection and normocephalic Mouth: oral mucosae normal Chest Chest: normal inspection of the chest Resp Effort & Inspection: normal respiratory effort Auscultation: no wheezes Cardio Rate: regular rate Rhythm: regular rhythm GI Inspection: normal to inspection Palpation: soft Auscultation: normal bowel sounds Skin General skin exam: no rashes or lesions noted Neuro General: patient alert, patient awake, patient oriented x3 and moves all extremities Extrem General: normal to inspection and full ROM Objective Last Vital Signs Temp 37 C 06/08/23 15:17 Pulse 98 H 06/08/23 19:29 Resp 20 06/08/23 19:29 BP 111/73 06/08/23 15:17 Pulse Ox 98 06/08/23 19:29 Laboratory Results - last 24 hr 06/08/23 06/08/23 06:02 06:02 WBC 8.52 RBC 4.10 L Hgb 12.1 L Hct 36.5 L MCV 89 MCH 29.5 MCHC 33.2 RDW 13.0 Plt Count 362 MPV 9.0 Immature Gran % 1.3 Neutrophils % 51.9 Lymphocytes % 26.9 Monocytes % 9.7 Eosinophils % 9.0 Basophils % 1.2 Nucleated RBC % 0.0 Absolute Neutrophils 4.42 Absolute Lymphocytes 2.29 Absolute Monocytes 0.83 H Absolute Eosinophils 0.77 H Absolute Basophils 0.10 Sodium 137 Potassium 3.9 Chloride 101 Carbon Dioxide 28.7 Anion Gap 7.3 BUN 15 Creatinine 1.0 Est GFR (CKD-EPI 2020) 80.97 Glucose 104 Calcium 8.7 Time Spent with Patient Time Spent with Patient: 35-49 minutes Time was spent: preparing to see the patient(eg.review tests), ordering medications,tests, procedures, referring, communicating with other health healthcare network pricing consultant, indepentently interpreting results, counseling the patient and care coordination
--- NOTE | 2023-06-06 15:24 | CMPROGNOTE_ITS ---
Date of service: 06/06/23 Time of Service: 15:24 Care Management Progress Note Progress Note Text Progress Note Text: S/O: Jeremiah is awake and sitting in his chair when CM met with him. He states that although he's really not feeling well he is very happy with the care he is receiving. He c/o aches and pains especially in his sides which he relates to coughing frequently and hard. Jeremiah has home O2 through [facility] and will have his brother bring his portable O2 to the hospital prior to discharge. Blood cultures are pending. CM will follow. A: 68 year old male admitted to [facility] on 06/04/23 for pneumonia P:Anticipate Jimmy will return home when medically cleared by . He will be driven home via private vehicle with brother when ready. He will find someone to bring his portable O2, prior to discharge. He will follow up with his PCP and discharge plan of care. CM will continue to follow.
[2023-06-06] MEDS: AZITHROMYCIN 250 MG in Normal Saline 250 ML IVPB (20:54)
[2023-06-06] MEDS: cefTRIAXone 1 GM/50 ML BAG IVPB (20:55)
[2023-06-06] MEDS: metFORMIN 500 MG TAB PO (20:56)
[2023-06-06] MEDS: Aspirin E.C. 81 MG TABEC PO (21:07)
[2023-06-07] VITALS (11 sets, daily range): BP systolic 100–118; BP diastolic 72–82; PULSE 55–100; RESP 4–20; TEMP 36.1–37.3; O2SAT 93–98
[2023-06-07] MEDS: Albuterol/Ipratropium 3 ML UPD VIAL UPD ×4 (01:33→19:11)
[2023-06-07 07:19] LABS: HCT 35.4 % (40.0-50.0); HGB 11.8 g/dL (13.5-17.5); MCH 29.5 pg (27.0-33.0); MCHC 33.3 % (32.0-36.0); MCV 89 fL (80-95); Platelet Count 315 10^3/uL (130-400); RDW-SD 42.2 fL; WBC 8.63 10^3/uL (4.4-10.8)
[2023-06-07] MEDS: Mometasone 220 MCG 14 DOSE INHALER 1 PUFF IH ×2 (07:57→20:29)
[2023-06-07 08:07] LABS: Absolute Eosinophil Count 0.43 10^3/uL (0.0-0.7); Absolute Lymphocyte Count 2.16 10^3/uL (1.2-3.4); Absolute Monocyte Count 1.29 10^3/uL (0.1-0.8); Absolute Neutrophil Count 4.75 10^3/uL (1.2-6.7); Diff Comment Manual Differential; RBC Morphology Normal
[2023-06-07 09:22] LABS: Anion Gap 10.9 mmol/L (3-11); BUN 15 mg/dL (7-18); CO2 26.1 mmol/L (21.0-32.0); CREATININE 1.1 mg/dL (0.70-1.30); Calcium 8.7 mg/dL (8.5-10.1); Chloride 100 mmol/L (98-107); Estimated GFR 72.22 (mL/min/1.73m2); Glucose 112 mg/dL (74-106); Potassium 3.7 mmol/L (3.5-5.1); Sodium 137 mmol/L (136-145)
[2023-06-07] MEDS: metFORMIN 500 MG TAB PO ×2 (09:25→17:41)
[2023-06-07] MEDS: Apixaban 5 MG TAB PO ×2 (09:25→20:36)
[2023-06-07] MEDS: Lisinopril 2.5 MG TAB 5 MG PO (09:26)
[2023-06-07] MEDS: Omeprazole 20 MG CAPCR PO (09:27)
[2023-06-07] MEDS: Benzonatate 200 MG CAP PO ×3 (09:27→20:27)
[2023-06-07] MEDS: Folic Acid 1 MG TAB PO (09:27)
[2023-06-07] MEDS: guaiFENesin 600 MG TABCR PO ×2 (09:27→20:28)
[2023-06-07] MEDS: Normal Saline Flush 10 ML SYR IVP (11:09)
--- NOTE | 2023-06-07 12:00 | CMPROGNOTE_ITS ---
Date of service: 06/07/23 Time of Service: 12:00 Care Management Progress Note Progress Note Text Progress Note Text: S/O: Jimmy is sitting in a chair watching television when CM comes to meet with him. He is pleasant and talkative. He states he is feeling a bit better but continues to cough up blood tinged sputum. He worked with physical therapy this morning and jokes that he scared the physical therapist because his O2 sats dropped with ambulation. He hopes to be able to return home soon. Blood cultures are still pending. CM will continue to follow. A: Jimmy is a 68 year old male admitted to [facility] on 06/04/2023 for pneumonia. P: Plan remains for Jimmy to return home when medically cleared by provider. He will follow up with his PCP, [facility] (Dr. Younger), and plan of care as instructed. He will be transported home by his brother via private vehicle when ready. CM will continue to follow.
--- NOTE | 2023-06-07 13:05 | W.PULMCON ---
General Date Of Service Date of service: 06/07/23 Time of Service: 13:07 Reason for Consult: Pneumonia/COPD exacerbation Assessment and Plan Assessment and plan (1) Hemoptysis: Status: Acute (2) Respiratory failure with hypoxia: Status: Acute (3) Pneumonia: Status: Acute (4) COPD exacerbation: Status: Acute Assessment and plan: This is a 68 yo admitted to the hospital for a COPD exacerbation in the setting of a pneumonia. He was not receiving any prednisone for his exacerbation, so will start a burst. His nebs can be made QID. I will start Stiolto in place of his home Anoro. The mass mentioned in the CT scan is likely infectious and related to his pneumonia. He sees [facility] pulmonary (Dr. Younger) and I will be sure to send along my notes to him for follow up. I do recommend he obtain a repeat chest CT in around 2 months time to ensure resolution of the pneumonia and to be sure the LLL infiltrate is not or malignant potential. He did develop hemoptysis today, which he tells me is not atypical and has occurred previously. The hemoptysis is scant and I suspect this is due to cough irritation as well as his pneumonia. We should keep a close eye on this and if there is worsening his A/C should be held and we should also hold his VibraPEP. COPD Exacerbation - would give prednisone 40mg for 5 days - Stiolto started (in place of home Anoro) - continue Asmanex in place of Flovent - Duonebs from q6h to QID Pneumonia - agree with ceftriaxone and azithromycin - can transition to Keflex and azithro on D/C to complete a 5 day total course - recommend CT scan in 2 months time for resolution of infiltrates - will send my documentation as well as push our images to Dr. Younger at [facility] in order to coordinate follow up/repeat chest CT scan Hemoptysis - scant and likely due to airways inflammation from cough/infection - monitor for worsening - if increasing recommend holding A/C and holding VibraPEP - no current indication for bronchoscopy Acute on Chronic hypoxic respiratory failure - at home he uses 2LPM with exertion and as needed - can work on weaning O2 for sats 88-92% History of Present Illness Narrative: This is a 68 yo admitted on 06/04/23 for a COPD exacerbation in the setting of pneumonia. He had 2 weeks ofproductive cough and dyspnea with fevers. In the ED he was found to be hypoxic to the 80's and was admitted to Med-Surg. He does not have a white count, nor does he have an elevated neutrophil:lymphocyte ratio. He has a negative COVID. Antigens for legionella and mycoplasma were sent. His chest CT is significant for emphysema and multilobar infiltrates consistent with pneumonia as well as some mediastinal LAD. There is concern on the radiology read of the LLL infiltrate being potentially malignant. A chest CT from 12/28/21 does not show any nodules in the LLL. He holds a diagnosis of COPD, although I see now PFT's. As an outpatient he is on Anoro and Flovent. As an inpatient he was been started on ceftriaxone, azithromycin, Duonebs q6h, Asmanex. Today, he is feeling improved. He does cough up a fair amount of mucus with aid from the VibraPEP. He did develop hemoptysis today, which I would classify as scant. He tells me this has occurred in the past and has typically self resolved. He quit smoking in 2018 and has received yearly chest CT's. Review of Systems All systems reviewed & are unremarkable except as noted in HPI and below PFSH All Active Problems (Updated 06/07/23 @ 18:58 by Barb Head MD) Respiratory failure with hypoxia (Acute) Hemoptysis (Acute) Dupuytren's contracture of left hand (Acute) Discharge planning issues (Acute) DVT prophylaxis (Acute) Pneumonia (Acute) Pulmonary embolism (Chronic) COPD exacerbation (Acute) Pneumonia (Acute) Breath shortness (Acute) Dupuytren's contracture of right hand (Acute) s/p partial release Nodular fasciitis (Acute) At risk for stress ulcer (Acute) DVT prophylaxis (Acute) COPD with exacerbation (Acute) HTN (hypertension) (Chronic) COPD (chronic obstructive pulmonary disease) (Chronic) Emphysematous bleb of lung (Acute) repeat cxr shows no signs of recurrence of PTX does have security services specialist he follows up with. I did find an old CT chest and reviewed w/ him. Does show signif changes from COPD. signif blebs throughout entire lung. pt is not surgical candidate. cont pulm toilet no restrictions on activity at this time can use oil to remove tape residue. f/u w/ pulm to see if can find a better combo of inhalers to improve breathing Ruptured emphysematous bleb (Acute) on left lung Medical History (Updated 06/07/23 @ 18:58 by Barb Head MD) COPD (chronic obstructive pulmonary disease) Spontaneous pneumothorax Surgical History Arthroplasty of knee Colonoscopy - MAC (07/07/16) Social History Smoking/Tobacco Use Status: Former Tobacco Use Pack-years: 51 Tobacco: How many years used: 51 Smoking risk assessment performed?: Yes Alcohol Intake: current Alcohol Intake frequency: a few times a week Alcohol type: beer and hard liquor Drug use: Never Substance use type: does not use Household members: other Details: has a boarder to whom he rents a room Housing: apartment Current gender identity: male Do you feel safe at home: Yes Do you feel safe in your relationship?: Yes Additional Social history: 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 [employer]; 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 Visit Medication and Allergies Active Medications Generic Name Dose Route Start Last Admin Trade Name Freq PRN Reason Stop Dose Admin Acetaminophen 650 mg 06/04/23 22:53 06/06/23 20:53 Acetaminophen 325 Mg Tab PO 650 mg Q4H PRN PRN Administration Albuterol Sulfate 2.5 mg 06/04/23 22:46 06/05/23 00:14 Albuterol 2.5 Mg/3 Ml Inh Soln Vial UPD 2.5 mg Q4H PRN PRN Administration Albuterol/Ipratropium 3 ml 06/05/23 02:00 06/07/23 07:53 Albuterol/Ipratropium 3 Ml Upd Vial UPD 3 ml Q6H ROS Administration Apixaban 5 mg 06/05/23 08:30 06/07/23 09:25 Apixaban 5 Mg Tab PO 5 mg BID ROS Administration Aspirin 81 mg 06/06/23 22:00 06/06/23 21:07 Aspirin E.C. 81 Mg Tabec PO 81 mg Q48H ROS Administration Benzonatate 200 mg 06/05/23 17:00 06/07/23 09:27 Benzonatate 200 Mg Cap PO 200 mg TID ROS Administration Folic Acid 1 mg 06/05/23 08:30 06/07/23 09:27 Folic Acid 1 Mg Tab PO 1 mg DAILY ROS Administration Guaifenesin 600 mg 06/05/23 17:00 06/07/23 09:27 Guaifenesin 600 Mg Tabcr PO 600 mg BID ROS Administration Ceftriaxone Sodium/Dextrose 1 gm in 50 mls @ 100 mls/hr 06/05/23 20:00 06/06/23 22:47 Rocephin IVPB Infused Q24H ROS Infusion Azithromycin 250 mg/ Sodium 250 mls @ 250 mls/hr 06/05/23 22:00 06/06/23 22:47 Chloride IVPB Infused Q24H ROS Infusion Sodium Chloride 500 mls @ 0 mls/hr 06/06/23 15:17 Saline 500ml Bag IV PRN PRN As Directed IV Miscellaneous Supplies 1 each 06/06/23 15:30 Iv Access IV DIRECTED [facility] Ibuprofen 600 mg 06/04/23 22:49 Ibuprofen 600 Mg Tab PO QID PRN PRN pain Lisinopril 5 mg 06/05/23 08:30 06/07/23 09:26 Lisinopril 2.5 Mg Tab PO 5 mg DAILY ROS Administration Metformin HCl 500 mg 06/07/23 17:00 Metformin 500 Mg Tab PO BID@0800,1700 ROS Mometasone Furoate 1 puff 06/05/23 08:30 06/07/23 07:57 Mometasone 220 Mcg 14 Dose Inhaler IH 1 puff BID ROS Administration Omeprazole 20 mg 06/05/23 07:30 06/07/23 09:27 Omeprazole 20 Mg Capcr PO 20 mg 0730 [facility] Administration Polyethylene Glycol 17 gm 06/05/23 11:20 06/07/23 09:28 Polyethylene Glycol 3350 17 Gm Packet PO Not Given BID ROS Sodium Chloride 0 ml 06/06/23 15:30 06/07/23 11:09 Normal Saline Flush 10 Ml Syr IVP 10 ml PRN PRN Administration Allergies No Known Allergies Allergy (Verified 06/04/23 18:21) Exam Narrative Exam Narrative: Gen: NAD, normal respiratory effort, well-nourished HENT: PERRL, nasal turbinates normal without erythema or inflammation, moist oral mucosa, Mallampati 2, No LAD or JVD Chest: No respiratory distress, normal appearance of chest, bilateral expiratory wheeze with some scattered coarse crackles Heart: regular rate and rhythym, no murmurs, rubs or gallops Abdomen: Non-distended, soft, non tender Extremities: No clubbing, edema, cyanosis, rashes Neuro: AAOx3 , non focal Psych: cooperative, appropriate mental affect Results Last Vital Signs Temp 36.1 C L 06/07/23 07:50 Pulse 90 06/07/23 08:02 Resp 16 06/07/23 07:53 BP 118/82 06/07/23 07:50 Pulse Ox 94 06/07/23 07:57 Labs 06/07/23 06:46 06/07/23 06:46 Labs: Laboratory Results - last 24 hr 06/07/23 06/07/23 06:46 06:46 WBC 8.63 RBC 4.00 L Hgb 11.8 L Hct 35.4 L MCV 89 MCH 29.5 MCHC 33.3 RDW 13.0 Plt Count 315 MPV 9.0 Immature Gran % 0.0 Neutrophils % 55.0 Lymphocytes % 25.0 Monocytes % 15.0 Eosinophils % 5.0 Basophils % 0.0 Nucleated RBC % 0.0 Absolute Neutrophils 4.75 Absolute Lymphocytes 2.16 Absolute Monocytes 1.29 H Absolute Eosinophils 0.43 Absolute Basophils 0.00 RBC Morphology Normal Sodium 137 Potassium 3.7 Chloride 100 Carbon Dioxide 26.1 Anion Gap 10.9 BUN 15 Creatinine 1.1 Est GFR (CKD-EPI 2020) 72.22 Glucose 112 H Calcium 8.7 Magnesium 2.0
--- NOTE | 2023-06-07 18:13 | W.PM.PROGNOT ---
Date of Service Date of service: 06/07/23 Time of Service: 18:13 Assessment and Plan Assessment and plan (1) Pneumonia: Status: Acute Assessment and plan: Continue azithromycin, ceftriaxone day 3? pending urine for strep antigen and mycoplasma Legionella studies.? continue acapella and updrafts if continues to have hemoptysis, hold off on acapella. blood cultures negative, wean oxygen as able. Qualifiers: Pneumonia type: due to unspecified organism Laterality: bilateral Lung location: lower lobe of lung Qualified Code(s): J18.9 - Pneumonia, unspecified organism (2) COPD exacerbation: Status: Acute Assessment and plan: pulmonary evaluation steroids added, duonebs scheduled, started on stiolto. will follow up outpatient with his [facility] team. discussed with Dr Blackwell Subjective Subjective Patient reports: no new complaints, tolerating liquids well, tolerating a regular diet, no bowel movement and afebrile; denies shortness of breath Exam Const General: cooperative, comfortable, no acute distress and ill appearing (older appearing than stated age) chronically Orientation: alert, awake and oriented x3 HENMT Head: normal to inspection and normocephalic Mouth: oral mucosae normal Chest Chest: normal inspection of the chest Resp Effort & Inspection: normal respiratory effort Auscultation: no wheezes Cardio Rate: regular rate Rhythm: regular rhythm GI Inspection: normal to inspection Palpation: soft Auscultation: normal bowel sounds Skin General skin exam: no rashes or lesions noted Neuro General: patient alert, patient awake, patient oriented x3 and moves all extremities Extrem General: normal to inspection and full ROM Objective Last Vital Signs Temp 37.3 C 06/07/23 15:40 Pulse 100 H 06/07/23 15:40 Resp 20 06/07/23 15:40 BP 100/72 06/07/23 15:40 Pulse Ox 96 06/07/23 15:40 Laboratory Results - last 24 hr 06/07/23 06/07/23 06:46 06:46 WBC 8.63 RBC 4.00 L Hgb 11.8 L Hct 35.4 L MCV 89 MCH 29.5 MCHC 33.3 RDW 13.0 Plt Count 315 MPV 9.0 Immature Gran % 0.0 Neutrophils % 55.0 Lymphocytes % 25.0 Monocytes % 15.0 Eosinophils % 5.0 Basophils % 0.0 Nucleated RBC % 0.0 Absolute Neutrophils 4.75 Absolute Lymphocytes 2.16 Absolute Monocytes 1.29 H Absolute Eosinophils 0.43 Absolute Basophils 0.00 RBC Morphology Normal Sodium 137 Potassium 3.7 Chloride 100 Carbon Dioxide 26.1 Anion Gap 10.9 BUN 15 Creatinine 1.1 Est GFR (CKD-EPI 2020) 72.22 Glucose 112 H Calcium 8.7 Magnesium 2.0 Time Spent with Patient Time Spent with Patient: 25-34 minutes Time was spent: preparing to see the patient(eg.review tests), ordering medications,tests, procedures, referring, communicating with other health team primary care physician and counseling the patient
[2023-06-07] MEDS: cefTRIAXone 1 GM/50 ML BAG IVPB (20:28)
[2023-06-07] MEDS: Acetaminophen 325 MG TAB 650 MG PO (20:36)
[2023-06-07] MEDS: AZITHROMYCIN 250 MG in Normal Saline 250 ML IVPB (22:42)
[2023-06-08] VITALS (12 sets, daily range): BP systolic 111–122; BP diastolic 73–79; PULSE 70–119; RESP 1–25; TEMP 36.5–37.3; O2SAT 86–98
[2023-06-08] MEDS: Ibuprofen 600 MG TAB PO (06:05)
[2023-06-08 06:53] LABS: Abs Immature Grans 0.11 10^3/uL (0.0-0.06); Absolute Eosinophil Count 0.77 10^3/uL (0.0-0.7); Absolute Lymphocyte Count 2.29 10^3/uL (1.2-3.4); Absolute Monocyte Count 0.83 10^3/uL (0.1-0.8); Absolute Neutrophil Count 4.42 10^3/uL (1.2-6.7); Basophils % 1.2; HCT 36.5 % (40.0-50.0); HGB 12.1 g/dL (13.5-17.5); Immature Grans % 1.3; Lymphocytes % 26.9; MCH 29.5 pg (27.0-33.0); MCHC 33.2 % (32.0-36.0); MCV 89 fL (80-95); Monocytes % 9.7; Neutrophils % 51.9; Platelet Count 362 10^3/uL (130-400); RDW-SD 42.4 fL; WBC 8.52 10^3/uL (4.4-10.8)
--- NOTE | 2023-06-08 06:56 | PGE_ITS ---
Assessment and Plan Assessment and plan (1) Hemoptysis: Status: Acute (2) Respiratory failure with hypoxia: Status: Acute (3) Pneumonia: Status: Acute (4) COPD exacerbation: Status: Acute Assessment and plan: This is a 68 yo admitted to the hospital for a COPD exacerbation in the setting of a pneumonia. The mass mentioned in the CT scan is likely infectious and related to his pneumonia. [place] [facility] [place] and I will be sure to send along my notes to him for follow up. I do recommend he obtain a repeat chest CT in around 2 months time to ensure resolution of the pneumonia and to be sure the LLL infiltrate is not or malignant potential. He continues to have scant hemoptysis. I suspect this is due to cough irritation as well as his pneumonia. We should keep a close eye on this and if there is worsening his A/C should be held and we should also hold his VibraPEP. COPD Exacerbation - would give prednisone 40mg for 5 days - continue Stiolto - continue Asmanex in place of Flovent - Duonebs from QID Pneumonia - agree with ceftriaxone and azithromycin - can transition to Keflex and azithro on D/C to complete a 5 day total course - recommend CT scan in 2 months time for resolution of infiltrates - will send my documentation as well as push our images to [place]ounger [place] [facility] [place] to coordinate follow up/repeat chest CT scan Hemoptysis - scant and likely due to airways inflammation from cough/infection - monitor for worsening - if increasing recommend holding A/C and holding VibraPEP - no current indication for bronchoscopy Acute on Chronic hypoxic respiratory failure - at home he uses 2LPM with exertion and as needed - can work on weaning O2 for sats 88-92% General Date Of Service Date of service: 06/08/23 Time of Service: 06:56 Reason for Consult: Pneumonia/COPD exacerbation Subjective Note Note: He is feeltired today. He states he was up all night coughing but was able to clear out a significant amount of sputum. He does still have hemoptysis that is mixed with sputum and scant. Exam Narrative Exam Narrative: Gen:?NAD, normal respiratory effort, well-nourished HENT:?PERRL, nasal turbinates normal without erythema or inflammation, moist oral? mucosa, Mallampati 2, No LAD or JVD Chest:?No respiratory distress, normal appearance of chest, clear to ausc ultation bilaterally Heart:?regular rate and rhythym, no murmurs, rubs or gallops Abdomen:?Non-distended, soft, non tender Extremities:?No clubbing, edema, cyanosis, rashes Neuro:?AAOx3 , non focal Psych:?cooperative, appropriate mental affect Objective Last Vital Signs Temp 37.3 C 06/08/23 01:15 Pulse 93 H 06/08/23 01:15 Resp 22 06/08/23 01:15 BP 122/79 06/08/23 01:15 Pulse Ox 92 06/08/23 01:15 Laboratory Results - last 24 hr 06/07/23 06/07/23 06:46 06:46 WBC 8.63 RBC 4.00 L Hgb 11.8 L Hct 35.4 L MCV 89 MCH 29.5 MCHC 33.3 RDW 13.0 Plt Count 315 MPV 9.0 Immature Gran % 0.0 Neutrophils % 55.0 Lymphocytes % 25.0 Monocytes % 15.0 Eosinophils % 5.0 Basophils % 0.0 Nucleated RBC % 0.0 Absolute Neutrophils 4.75 Absolute Lymphocytes 2.16 Absolute Monocytes 1.29 H Absolute Eosinophils 0.43 Absolute Basophils 0.00 RBC Morphology Normal Sodium 137 Potassium 3.7 Chloride 100 Carbon Dioxide 26.1 Anion Gap 10.9 BUN 15 Creatinine 1.1 Est GFR (CKD-EPI 2020) 72.22 Glucose 112 H Calcium 8.7 Magnesium 2.0 Results Medications Medications: Active Medications Generic Name Dose Route Start Last Admin Trade Name Freq PRN Reason Stop Dose Admin Acetaminophen 650 mg 06/04/23 22:53 06/07/23 20:36 Acetaminophen 325 Mg Tab PO 650 mg Q4H PRN PRN Administration Albuterol Sulfate 2.5 mg 06/04/23 22:46 06/05/23 00:14 Albuterol 2.5 Mg/3 Ml Inh Soln Vial UPD 2.5 mg Q4H PRN PRN Administration Albuterol/Ipratropium 3 ml 06/07/23 20:00 06/07/23 19:11 Albuterol/Ipratropium 3 Ml Upd Vial UPD 3 ml QID ROS Administration Apixaban 5 mg 06/05/23 08:30 06/07/23 20:36 Apixaban 5 Mg Tab PO 5 mg BID ROS Administration Aspirin 81 mg 06/06/23 22:00 06/06/23 21:07 Aspirin E.C. 81 Mg Tabec PO 81 mg Q48H ROS Administration Benzonatate 200 mg 06/05/23 17:00 06/07/23 20:27 Benzonatate 200 Mg Cap PO 200 mg TID ROS Administration Device 1 each 06/07/23 17:00 Inhaler, Assist Device MC DIRECTED ROS Folic Acid 1 mg 06/05/23 08:30 06/07/23 09:27 Folic Acid 1 Mg Tab PO 1 mg DAILY ROS Administration Guaifenesin 600 mg 06/05/23 17:00 06/07/23 20:28 Guaifenesin 600 Mg Tabcr PO 600 mg BID [facility] Administration Ceftriaxone Sodium/Dextrose 1 gm in 50 mls @ 100 mls/hr 06/05/23 20:00 06/08/23 00:10 Rocephin IVPB Infused Q24H ROS Infusion Azithromycin 250 mg/ Sodium 250 mls @ 250 mls/hr 06/05/23 22:00 06/08/23 00:10 Chloride IVPB Infused Q24H [facility] Infusion Sodium Chloride 500 mls @ 0 mls/hr 06/06/23 15:17 Saline 500ml Bag IV PRN PRN As Directed IV Miscellaneous Supplies 1 each 06/06/23 15:30 Iv Access IV DIRECTED [facility] Ibuprofen 600 mg 06/04/23 22:49 06/08/23 06:05 Ibuprofen 600 Mg Tab PO 600 mg QID PRN PRN Administration pain Lisinopril 5 mg 06/05/23 08:30 06/07/23 09:26 Lisinopril 2.5 Mg Tab PO 5 mg DAILY [facility] Administration Metformin HCl 500 mg 06/07/23 17:00 06/07/23 17:41 Metformin 500 Mg Tab PO 500 mg BID@0800,1700 ROS Administration Mometasone Furoate 1 puff 06/05/23 08:30 06/07/23 20:29 Mometasone 220 Mcg 14 Dose Inhaler IH 1 puff BID ROS Administration Omeprazole 20 mg 06/05/23 07:30 06/07/23 09:27 Omeprazole 20 Mg Capcr PO 20 mg 0730 ROS Administration Polyethylene Glycol 17 gm 06/05/23 11:20 06/07/23 20:30 Polyethylene Glycol 3350 17 Gm Packet PO Not Given BID ROS Prednisone 40 mg 06/08/23 08:30 Prednisone 20 Mg Tab PO DAILY ROS Sodium Chloride 0 ml 06/06/23 15:30 06/07/23 11:09 Normal Saline Flush 10 Ml Syr IVP 10 ml PRN PRN Administration Tiotropium [place]/Olodaterol 2 puff 06/08/23 08:30 Tiotropium/Olodaterol 10 Puff Inhaler IH DAILY ROS Allergies No Known Allergies Allergy (Verified 06/04/23 18:21) Labs 06/08/23 06:02 06/08/23 06:02 Labs: 06/05/23 00:15 Sputum Sputum Culture - Preliminary Normal Kristie 06/05/23 00:15 Sputum Gram Stain - Final 06/06/23 11:20 Blood Blood Culture - Preliminary NO GROWTH 24 HOURS 06/06/23 11:30 Blood Blood Culture - Preliminary NO GROWTH 24 HOURS Laboratory Tests Range/Units 06/04/23 06/04/23 06/04/23 18:11 18:11 18:11 WBC (4.4-10.8) 10^3/uL 9.73 RBC (4.36-5.78) 10^6/uL 4.06 L Hgb (13.5-17.5) g/dL 12.0 L Hct (40.0-50.0) % 36.0 L MCV (80-95) fL 89 MCH (27.0-33.0) pg 29.6 MCHC (32.0-36.0) % 33.3 RDW (11.8-14.1) % 12.9 Plt Count (130-400) 10^3/uL 255 MPV (8.0-11.0) fL 9.0 Immature Gran % 0.5 Neutrophils % 71.7 Band Neutrophils % Lymphocytes % 12.3 Atypical Lymphs % Monocytes % 13.4 Eosinophils % 1.3 Basophils % 0.8 Metamyelocytes % Myelocytes % Promyelocytes % Other Cells % Nucleated RBC % (0.0-0.3) % 0.0 Absolute Neutrophils (1.2-6.7) 10^3/uL 6.97 H Absolute Lymphocytes (1.2-3.4) 10^3/uL 1.20 Absolute Monocytes (0.1-0.8) 10^3/uL 1.30 H Absolute Eosinophils (0.0-0.7) 10^3/uL 0.13 Absolute Basophils (0.0-0.2) 10^3/uL 0.08 RBC Morphology Polychromasia Hypochromasia Poikilocytosis Basophilic Stippling Anisocytosis Microcytosis Macrocytosis Spherocytes Tear Drop Cells Ovalocytes Stomatocytes [place] Bodies Jesus Cells/Echinocytes Acanthocytes (Spur) Schistocytes D-Dimer (<500) ng/mlFEU 1994 H Sodium (136-145) mmol/L 135 L Potassium (3.5-5.1) mmol/L 3.6 Chloride (98-107) mmol/L 99 Carbon Dioxide (21.0-32.0) mmol/L 26.1 Anion Gap (3-11) mmol/L 9.9 BUN (7-18) mg/dL 16 Creatinine (0.70-1.30) mg/dL 1.2 Est GFR (CKD-EPI 2020) (mL/min/1.73m2) 65.06 Glucose (74-106) mg/dL 127 H Calcium (8.5-10.1) mg/dL 8.5 Magnesium (1.8-2.4) mg/dL 1.7 L Total Bilirubin (0.2-1.0) mg/dL 0.8 AST (15-37) U/L 21 ALT (16-63) U/L 26 Alkaline Phosphatase (46-116) U/L 57 Troponin I (<or=60) ng/L < 50 Total Protein (6.4-8.2) g/dL 7.7 Albumin (3.4-5.0) g/dL 3.0 L COVID-19 Source SARS-CoV-2 (PCR) (Negative) Influenza Type A (PCR) (Negative) Influenza Type B (PCR) (Negative) Urine Legionella Ag (Negative) RSV (PCR) (Negative) Range/Units 06/04/23 06/05/23 06/05/23 18:47 11:41 16:10 WBC (4.4-10.8) 10^3/uL RBC (4.36-5.78) 10^6/uL Hgb (13.5-17.5) g/dL Hct (40.0-50.0) % MCV (80-95) fL MCH (27.0-33.0) pg MCHC (32.0-36.0) % RDW (11.8-14.1) % Plt Count (130-400) 10^3/uL MPV (8.0-11.0) fL Immature Gran % Neutrophils % Band Neutrophils % Lymphocytes % Atypical Lymphs % Monocytes % Eosinophils % Basophils % Metamyelocytes % Myelocytes % Promyelocytes % Other Cells % Nucleated RBC % (0.0-0.3) % Absolute Neutrophils (1.2-6.7) 10^3/uL Absolute Lymphocytes (1.2-3.4) 10^3/uL Absolute Monocytes (0.1-0.8) 10^3/uL Absolute Eosinophils (0.0-0.7) 10^3/uL Absolute Basophils (0.0-0.2) 10^3/uL RBC Morphology Polychromasia Hypochromasia Poikilocytosis Basophilic Stippling Anisocytosis Microcytosis Macrocytosis Spherocytes Tear Drop Cells Ovalocytes Stomatocytes [place] Bodies Alpine Cells/Echinocytes Acanthocytes (Spur) Schistocytes D-Dimer (<500) ng/mlFEU Sodium (136-145) mmol/L Potassium (3.5-5.1) mmol/L Chloride (98-107) mmol/L Carbon Dioxide (21.0-32.0) mmol/L Anion Gap (3-11) mmol/L BUN (7-18) mg/dL Creatinine (0.70-1.30) mg/dL Est GFR (CKD-EPI 2020) (mL/min/1.73m2) Glucose (74-106) mg/dL Calcium (8.5-10.1) mg/dL Magnesium (1.8-2.4) mg/dL Total Bilirubin (0.2-1.0) mg/dL AST (15-37) U/L ALT (16-63) U/L Alkaline Phosphatase (46-116) U/L Troponin I (<or=60) ng/L Total Protein (6.4-8.2) g/dL Albumin (3.4-5.0) g/dL COVID-19 Source Nasopharynx Nasal/Nares SARS-CoV-2 (PCR) (Negative) Negative Negative Influenza Type A (PCR) (Negative) Negative Influenza Type B (PCR) (Negative) Negative Urine Legionella Ag (Negative) Negative RSV (PCR) (Negative) Negative Range/Units 06/06/23 06/06/23 06/06/23 09:40 09:40 11:30 WBC (4.4-10.8) 10^3/uL Cancelled RBC (4.36-5.78) 10^6/uL Cancelled Hgb (13.5-17.5) g/dL Cancelled Hct (40.0-50.0) % Cancelled MCV (80-95) fL Cancelled MCH (27.0-33.0) pg Cancelled MCHC (32.0-36.0) % Cancelled RDW (11.8-14.1) % Cancelled Plt Count (130-400) 10^3/uL Cancelled MPV (8.0-11.0) fL Cancelled Immature Gran % Cancelled Neutrophils % Cancelled Band Neutrophils % Cancelled Lymphocytes % Cancelled Atypical Lymphs % Cancelled Monocytes % Cancelled Eosinophils % Cancelled Basophils % Cancelled Metamyelocytes % Cancelled Myelocytes % Cancelled Promyelocytes % Cancelled Other Cells % Cancelled Nucleated RBC % (0.0-0.3) % Cancelled Absolute Neutrophils (1.2-6.7) 10^3/uL Cancelled Absolute Lymphocytes (1.2-3.4) 10^3/uL Cancelled Absolute Monocytes (0.1-0.8) 10^3/uL Cancelled Absolute Eosinophils (0.0-0.7) 10^3/uL Cancelled Absolute Basophils (0.0-0.2) 10^3/uL Cancelled RBC Morphology Cancelled Polychromasia Cancelled Hypochromasia Cancelled Poikilocytosis Cancelled Basophilic Stippling Cancelled Anisocytosis Cancelled Microcytosis Cancelled Macrocytosis Cancelled Spherocytes Cancelled Tear Drop Cells Cancelled Ovalocytes Cancelled Stomatocytes Cancelled [place] Bodies Cancelled Alpine Cells/Echinocytes Cancelled Acanthocytes (Spur) Cancelled Schistocytes Cancelled D-Dimer (<500) ng/mlFEU Sodium (136-145) mmol/L Cancelled 135 L Potassium (3.5-5.1) mmol/L Cancelled 3.8 Chloride (98-107) mmol/L Cancelled 99 Carbon Dioxide (21.0-32.0) mmol/L Cancelled 27.9 Anion Gap (3-11) mmol/L Cancelled 8.1 BUN (7-18) mg/dL Cancelled 16 Creatinine (0.70-1.30) mg/dL Cancelled 1.1 Est GFR (CKD-EPI 2020) (mL/min/1.73m2) Cancelled 72.22 Glucose (74-106) mg/dL Cancelled 133 H Calcium (8.5-10.1) mg/dL Cancelled 9.2 Magnesium (1.8-2.4) mg/dL Cancelled 2.0 Total Bilirubin (0.2-1.0) mg/dL AST (15-37) U/L ALT (16-63) U/L Alkaline Phosphatase (46-116) U/L Troponin I (<or=60) ng/L Total Protein (6.4-8.2) g/dL Albumin (3.4-5.0) g/dL COVID-19 Source SARS-CoV-2 (PCR) (Negative) Influenza Type A (PCR) (Negative) Influenza Type B (PCR) (Negative) Urine Legionella Ag (Negative) RSV (PCR) (Negative) Range/Units 06/06/23 06/07/23 06/07/23 11:30 06:46 06:46 WBC (4.4-10.8) 10^3/uL 10.58 8.63 RBC (4.36-5.78) 10^6/uL 4.27 L 4.00 L Hgb (13.5-17.5) g/dL 12.5 L 11.8 L Hct (40.0-50.0) % 37.8 L 35.4 L MCV (80-95) fL 89 89 MCH (27.0-33.0) pg 29.3 29.5 MCHC (32.0-36.0) % 33.1 33.3 RDW (11.8-14.1) % 12.9 13.0 Plt Count (130-400) 10^3/uL 287 315 MPV (8.0-11.0) fL 8.8 9.0 Immature Gran % 0.6 0.0 Neutrophils % 66.6 55.0 Band Neutrophils % Lymphocytes % 15.1 25.0 Atypical Lymphs % Monocytes % 11.7 15.0 Eosinophils % 5.1 5.0 Basophils % 0.9 0.0 Metamyelocytes % Myelocytes % Promyelocytes % Other Cells % Nucleated RBC % (0.0-0.3) % 0.0 0.0 Absolute Neutrophils (1.2-6.7) 10^3/uL 7.05 H 4.75 Absolute Lymphocytes (1.2-3.4) 10^3/uL 1.60 2.16 Absolute Monocytes (0.1-0.8) 10^3/uL 1.24 H 1.29 H Absolute Eosinophils (0.0-0.7) 10^3/uL 0.54 0.43 Absolute Basophils (0.0-0.2) 10^3/uL 0.09 0.00 RBC Morphology Normal Polychromasia Hypochromasia Poikilocytosis Basophilic Stippling Anisocytosis Microcytosis Macrocytosis Spherocytes Tear Drop Cells Ovalocytes Stomatocytes [place] Bodies Jesus Cells/Echinocytes Acanthocytes (Spur) Schistocytes D-Dimer (<500) ng/mlFEU Sodium (136-145) mmol/L 137 Potassium (3.5-5.1) mmol/L 3.7 Chloride (98-107) mmol/L 100 Carbon Dioxide (21.0-32.0) mmol/L 26.1 Anion Gap (3-11) mmol/L 10.9 BUN (7-18) mg/dL 15 Creatinine (0.70-1.30) mg/dL 1.1 Est GFR (CKD-EPI 2020) (mL/min/1.73m2) 72.22 Glucose (74-106) mg/dL 112 H Calcium (8.5-10.1) mg/dL 8.7 Magnesium (1.8-2.4) mg/dL 2.0 Total Bilirubin (0.2-1.0) mg/dL AST (15-37) U/L ALT (16-63) U/L Alkaline Phosphatase (46-116) U/L Troponin I (<or=60) ng/L Total Protein (6.4-8.2) g/dL Albumin (3.4-5.0) g/dL COVID-19 Source SARS-CoV-2 (PCR) (Negative) Influenza Type A (PCR) (Negative) Influenza Type B (PCR) (Negative) Urine Legionella Ag (Negative) RSV (PCR) (Negative)
[2023-06-08 07:15] LABS: Anion Gap 7.3 mmol/L (3-11); BUN 15 mg/dL (7-18); CO2 28.7 mmol/L (21.0-32.0); Calcium 8.7 mg/dL (8.5-10.1); Chloride 101 mmol/L (98-107); Estimated GFR 80.97 (mL/min/1.73m2); Glucose 104 mg/dL (74-106); Potassium 3.9 mmol/L (3.5-5.1); Sodium 137 mmol/L (136-145)
[2023-06-08] MEDS: Omeprazole 20 MG CAPCR PO (07:16)
[2023-06-08] MEDS: Lisinopril 2.5 MG TAB 5 MG PO (08:12)
[2023-06-08] MEDS: metFORMIN 500 MG TAB PO ×2 (08:12→17:01)
[2023-06-08] MEDS: Folic Acid 1 MG TAB PO (08:13)
[2023-06-08] MEDS: Apixaban 5 MG TAB PO ×2 (08:13→20:54)
[2023-06-08] MEDS: Benzonatate 200 MG CAP PO ×3 (08:13→20:54)
[2023-06-08] MEDS: predniSONE 20 MG TAB 40 MG PO (08:14)
[2023-06-08] MEDS: guaiFENesin 600 MG TABCR PO (08:15)
[2023-06-08] MEDS: Tiotropium/Olodaterol 10 PUFF INHALER 2 PUFF IH (08:18)
[2023-06-08] MEDS: Albuterol/Ipratropium 3 ML UPD VIAL UPD ×4 (08:19→19:29)
[2023-06-08] MEDS: Mometasone 220 MCG 14 DOSE INHALER 1 PUFF IH ×2 (08:28→19:31)
[2023-06-08] MEDS: Normal Saline Flush 10 ML SYR IVP (11:53)
--- NOTE | 2023-06-08 14:50 | RESPIRATORY ---
Oxygen revision request submitted through [facility] to update patient's O2 requirement from 2L to 3L with ambulation.
--- NOTE | 2023-06-08 18:08 | CMPROGNOTE_ITS ---
Date of service: 06/08/23 Time of Service: 18:08 Care Management Progress Note Progress Note Text Progress Note Text: S/O:? Jeremiah was lying in bed getting ready to take a nap when CM met with him.? He is pleasant and talkative.? He states he is feeling a bit better, although his sides are still sore from coughing through the night. [facility] pulmonology is following and provided recommendations. He hopes to be able to return home soon. CM will continue to follow. A:? Jimmy is a 68 year old male admitted to [facility] on 06/04/2023 for pneumonia. P:? Plan remains for Jimmy to return home when medically cleared by provider.? He will follow up with his PCP, [facility] Technician (Dr. Younger), and plan of care as instructed.? He will be transported home by his brother via private vehicle when ready.? CM will continue to follow.
[2023-06-08] MEDS: guaiFENesin/CODEINE PHOSPHATE 10 ML CUP 5 ML PO (20:53)
[2023-06-08] MEDS: Acetaminophen 325 MG TAB 650 MG PO (20:53)
[2023-06-08] MEDS: cefTRIAXone 1 GM/50 ML BAG IVPB (20:54)
--- NOTE | 2023-06-08 21:40 | W.PM.PROGNOT ---
Date of Service Date of service: 06/08/23 Time of Service: 21:41 Assessment and Plan Assessment and plan (1) Pneumonia: Status: Acute Assessment and plan: Present on admission. Improving. Continue azithromycin, ceftriaxone Await pneumonia studies. I have added guaifenesin + codeine to help the patient sleep. Continue systemic and inhaled corticosteroids, nebs. Qualifiers: Pneumonia type: due to unspecified organism Laterality: bilateral Lung location: lower lobe of lung Qualified Code(s): J18.9 - Pneumonia, unspecified organism (2) COPD exacerbation: Status: Acute Assessment and plan: As above (3) Respiratory failure with hypoxia: Status: Acute Assessment and plan: The patient required 3L on ambulation this am. He is on room air at the time of my visit with him. I am awaiting paperwork for new oxygen orders. (4) Hemoptysis: Status: Acute Assessment and plan: I have discontinued ibuprofen. The patient is on aspirin and apixaban still. D/c vibrapep. (5) DVT prophylaxis: Status: Acute Assessment and plan: On therapeutic apixaban (6) Discharge planning issues: Status: Acute Assessment and plan: Full code Continues to require hospitalization. Discussed with Dr Head. Subjective Subjective Interval history since last seen: Mr Savage states he is feeling better. He is on RA right now and is not short of breath. He denies dizziness, CP, SOB, n/v. His cough is still productive of blood-tinged sputum and it has made it really hard for him to sleep. Exam Narrative Exam Narrative: General: Pleasant male who is coughing quite a bit with me in the room; sputum mildly blood-tinged, A&Ox3, NAD HEENT: EOMI, MMM Heart: RRR, no m/r/g Lungs: wheezing on expiration B (triggering coughing) Abdomen: soft, nontender, nondistended Extremities: no edema BLEs Objective Last Vital Signs Temp 37 C 06/08/23 15:17 Pulse 98 H 06/08/23 19:29 Resp 20 06/08/23 19:29 BP 111/73 06/08/23 15:17 Pulse Ox 98 06/08/23 19:29 Laboratory Results - last 24 hr 06/08/23 06/08/23 06:02 06:02 WBC 8.52 RBC 4.10 L Hgb 12.1 L Hct 36.5 L MCV 89 MCH 29.5 MCHC 33.2 RDW 13.0 Plt Count 362 MPV 9.0 Immature Gran % 1.3 Neutrophils % 51.9 Lymphocytes % 26.9 Monocytes % 9.7 Eosinophils % 9.0 Basophils % 1.2 Nucleated RBC % 0.0 Absolute Neutrophils 4.42 Absolute Lymphocytes 2.29 Absolute Monocytes 0.83 H Absolute Eosinophils 0.77 H Absolute Basophils 0.10 Sodium 137 Potassium 3.9 Chloride 101 Carbon Dioxide 28.7 Anion Gap 7.3 BUN 15 Creatinine 1.0 Est GFR (CKD-EPI 2020) 80.97 Glucose 104 Calcium 8.7 Time Spent with Patient Time Spent with Patient: 25-34 minutes Time was spent: preparing to see the patient(eg.review tests), obtaining and/or reviewing separately otained hiistory, ordering medications,tests, procedures, referring, communicating with other health respiratory care instructor, indepentently interpreting results, counseling the patient and care coordination
[2023-06-08] MEDS: AZITHROMYCIN 250 MG in Normal Saline 250 ML IVPB (22:25)
[2023-06-08] MEDS: Aspirin E.C. 81 MG TABEC PO (22:27)
[2023-06-09] VITALS (9 sets, daily range): BP systolic 110–123; BP diastolic 70–81; PULSE 87–106; RESP 1–20; TEMP 36.5–37; O2SAT 89–97
[2023-06-09] MEDS: Albuterol/Ipratropium 3 ML UPD VIAL UPD ×4 (07:41→20:24)
[2023-06-09] MEDS: Tiotropium/Olodaterol 10 PUFF INHALER 2 PUFF IH (07:41)
[2023-06-09] MEDS: Mometasone 220 MCG 14 DOSE INHALER 1 PUFF IH ×2 (07:41→20:25)
[2023-06-09 07:58] LABS: Abs Immature Grans 0.22 10^3/uL (0.0-0.06); Absolute Basophil Count 0.08 10^3/uL (0.0-0.2); Absolute Lymphocyte Count 2.45 10^3/uL (1.2-3.4); Absolute Monocyte Count 0.92 10^3/uL (0.1-0.8); Absolute Neutrophil Count 8.07 10^3/uL (1.2-6.7); Basophils % 0.7; Eosinophils % 1.7; HCT 35.8 % (40.0-50.0); HGB 11.8 g/dL (13.5-17.5); Immature Grans % 1.8; Lymphocytes % 20.5; MCH 29.1 pg (27.0-33.0); MCV 88 fL (80-95); MPV 8.6 fL (8.0-11.0); Monocytes % 7.7; Neutrophils % 67.6; Platelet Count 382 10^3/uL (130-400); RBC 4.05 10^6/uL (4.36-5.78); RDW 12.9 % (11.8-14.1); RDW-SD 41.7 fL; WBC 11.94 10^3/uL (4.4-10.8)
[2023-06-09 08:15] LABS: Anion Gap 9.1 mmol/L (3-11); BUN 20 mg/dL (7-18); CO2 26.9 mmol/L (21.0-32.0); CREATININE 1.1 mg/dL (0.70-1.30); Calcium 9.2 mg/dL (8.5-10.1); Chloride 101 mmol/L (98-107); Estimated GFR 72.22 (mL/min/1.73m2); Glucose 101 mg/dL (74-106); Magnesium 1.8 mg/dL (1.8-2.4); Potassium 3.8 mmol/L (3.5-5.1); Sodium 137 mmol/L (136-145)
[2023-06-09 08:35] LABS: Procalcitonin < 0.1 ng/mL
[2023-06-09] MEDS: guaiFENesin 600 MG TABCR 1200 MG PO ×2 (08:53→20:25)
[2023-06-09] MEDS: Omeprazole 20 MG CAPCR PO (08:53)
[2023-06-09] MEDS: Lisinopril 2.5 MG TAB 5 MG PO (08:54)
[2023-06-09] MEDS: metFORMIN 500 MG TAB PO ×2 (08:54→16:35)
[2023-06-09] MEDS: Benzonatate 200 MG CAP PO ×3 (08:55→20:24)
[2023-06-09] MEDS: predniSONE 20 MG TAB 40 MG PO (08:55)
[2023-06-09] MEDS: Normal Saline Flush 10 ML SYR IVP ×3 (08:56→22:06)
[2023-06-09] MEDS: Apixaban 5 MG TAB PO ×2 (09:00→20:25)
[2023-06-09] MEDS: Folic Acid 1 MG TAB PO (09:00)
[2023-06-09] MEDS: guaiFENesin/CODEINE PHOSPHATE 10 ML CUP 5 ML PO (13:56)
--- NOTE | 2023-06-09 14:35 | W.PM.PROGNOT ---
Date of Service Date of service: 06/09/23 Time of Service: 14:36 Assessment and Plan Assessment and plan (1) Pneumonia: Status: Acute Assessment and plan: Present on admission. Improving. Continue azithromycin, ceftriaxone Await pneumonia studies. Continue systemic and inhaled corticosteroids, nebs. Continue cough med w codeine, helped him sleep, he stated he slept for 8h! Qualifiers: Pneumonia type: due to unspecified organism Laterality: bilateral Lung location: lower lobe of lung Qualified Code(s): J18.9 - Pneumonia, unspecified organism (2) COPD exacerbation: Status: Acute Assessment and plan: As above (3) Respiratory failure with hypoxia: Status: Acute Assessment and plan: Home oxygen updated orders signed (4) Hemoptysis: Status: Acute Assessment and plan: The patient is on aspirin and apixaban Patient has been using vibrapep - advised he should stop using it per recommendations of pulmonology. It was removed from the room. (5) DVT prophylaxis: Status: Acute Assessment and plan: On therapeutic apixaban (6) Discharge planning issues: Status: Acute Assessment and plan: Full code Continues to require hospitalization. Discussed with Dr Blackwell Subjective Subjective Patient reports: no new complaints, pain is less, tolerating a regular diet, voiding w/o difficulty, bowel movement and afebrile; denies diarrhea or vomiting Interval history since last seen: Continues to complain of cough, however states it is much better today after having cough med w codeine at HS yesterday, pleasant, conversant, able to speak in full sentences Exam Narrative Exam Narrative: General: Pleasant male, conversant, no coughing while I was present about 40 min total HEENT: EOMI, MMM Heart: RRR, no m/r/g Lungs: distant bilat, otherwise remarkably clear at time of exam Abdomen: soft, nontender, nondistended Extremities: no edema BLEs Objective Last Vital Signs Temp 36.6 C 06/09/23 08:34 Pulse 98 H 06/09/23 08:34 Resp 20 06/09/23 08:34 BP 123/81 06/09/23 08:34 Pulse Ox 94 06/09/23 12:51 Laboratory Results - last 24 hr 06/09/23 06/09/23 06/09/23 07:40 07:40 07:40 WBC 11.94 H RBC 4.05 L Hgb 11.8 L Hct 35.8 L MCV 88 MCH 29.1 MCHC 33.0 RDW 12.9 Plt Count 382 MPV 8.6 Immature Gran % 1.8 Neutrophils % 67.6 Lymphocytes % 20.5 Monocytes % 7.7 Eosinophils % 1.7 Basophils % 0.7 Nucleated RBC % 0.0 Absolute Neutrophils 8.07 H Absolute Lymphocytes 2.45 Absolute Monocytes 0.92 H Absolute Eosinophils 0.20 Absolute Basophils 0.08 Sodium 137 Potassium 3.8 Chloride 101 Carbon Dioxide 26.9 Anion Gap 9.1 BUN 20 H Creatinine 1.1 Est GFR (CKD-EPI 2020) 72.22 Glucose 101 Calcium 9.2 Magnesium 1.8 Procalcitonin < 0.1 Time Spent with Patient Time Spent with Patient: 35-49 minutes Time was spent: preparing to see the patient(eg.review tests), ordering medications,tests, procedures, referring, communicating with other health long term care social worker, indepentently interpreting results, counseling the patient and care coordination
[2023-06-09 15:42] LABS: Mycoplasma Pneumoniae PCR Negative; Specimen source NASAL
[2023-06-09] MEDS: cefTRIAXone 1 GM/50 ML BAG IVPB (20:22)
[2023-06-09] MEDS: AZITHROMYCIN 250 MG in Normal Saline 250 ML IVPB (22:07)
[2023-06-10 00:03] VITALS: BP 108/74; PULSE 94; RESP 18; TEMP 36.3; O2SAT 94
[2023-06-10 07:16] LABS: Abs Immature Grans 0.23 10^3/uL (0.0-0.06); Absolute Basophil Count 0.12 10^3/uL (0.0-0.2); Absolute Eosinophil Count 0.17 10^3/uL (0.0-0.7); Absolute Lymphocyte Count 2.83 10^3/uL (1.2-3.4); Absolute Monocyte Count 0.76 10^3/uL (0.1-0.8); Basophils % 1.1; Eosinophils % 1.5; HCT 36.7 % (40.0-50.0); HGB 12.2 g/dL (13.5-17.5); Immature Grans % 2.1; Lymphocytes % 25.3; MCH 29.4 pg (27.0-33.0); MCHC 33.2 % (32.0-36.0); MCV 88 fL (80-95); MPV 8.5 fL (8.0-11.0); Monocytes % 6.8; Neutrophils % 63.2; Platelet Count 441 10^3/uL (130-400); RBC 4.15 10^6/uL (4.36-5.78); RDW 13.1 % (11.8-14.1); RDW-SD 42.5 fL; WBC 11.19 10^3/uL (4.4-10.8)
[2023-06-10 07:20] LABS: Absolute Neutrophil Count 7.07 10^3/uL (1.2-6.7)
[2023-06-10 07:28] LABS: Anion Gap 7.1 mmol/L (3-11); BUN 20 mg/dL (7-18); C-Reactive Protein 2.71 mg/dL (0.0-0.3); CO2 29.9 mmol/L (21.0-32.0); CREATININE 1.2 mg/dL (0.70-1.30); Chloride 102 mmol/L (98-107); Estimated GFR 65.06 (mL/min/1.73m2); Glucose 103 mg/dL (74-106); Potassium 3.7 mmol/L (3.5-5.1); Sodium 139 mmol/L (136-145)
[2023-06-10 07:29] VITALS: O2SAT 93
[2023-06-10] MEDS: Tiotropium/Olodaterol 10 PUFF INHALER 2 PUFF IH (07:37)
[2023-06-10] MEDS: Mometasone 220 MCG 14 DOSE INHALER 1 PUFF IH (07:37)
[2023-06-10 07:38] VITALS: PULSE 69; RESP 5; O2SAT 92
[2023-06-10] MEDS: Albuterol/Ipratropium 3 ML UPD VIAL UPD ×2 (07:38→12:37)
[2023-06-10 07:41] VITALS: O2SAT 92
[2023-06-10 07:43] LABS: Lab Add On Test COMPLETED
[2023-06-10 07:57] LABS: Hemoglobin A1C 6.2 % (<5.7)
[2023-06-10] MEDS: guaiFENesin 600 MG TABCR 1200 MG PO (08:07)
[2023-06-10] MEDS: Lisinopril 2.5 MG TAB 5 MG PO (08:08)
[2023-06-10] MEDS: Apixaban 5 MG TAB PO (08:08)
[2023-06-10] MEDS: Omeprazole 20 MG CAPCR PO (08:08)
[2023-06-10] MEDS: Benzonatate 200 MG CAP PO ×2 (08:09→14:26)
[2023-06-10] MEDS: Folic Acid 1 MG TAB PO (08:09)
[2023-06-10] MEDS: predniSONE 20 MG TAB 40 MG PO (08:09)
[2023-06-10] MEDS: Normal Saline Flush 10 ML SYR IVP (08:10)
[2023-06-10 08:33] VITALS: BP 127/88; PULSE 79; RESP 22; TEMP 36.3; O2SAT 92
[2023-06-10 12:37] VITALS: RESP 8
--- NOTE | 2023-06-10 13:41 | W.PM.DS.N ---
Date of service: 06/10/23 Time of Service: 19:15 DS: Diagnosis Discharge Diagnosis (1) Pneumonia: Status: Acute (2) COPD exacerbation: Status: Acute (3) Respiratory failure with hypoxia: Status: Acute (4) Hemoptysis: Status: Acute (5) DVT prophylaxis: Status: Acute (6) Discharge planning issues: Status: Acute Discharge Plan Disposition Patient Disposition: Home Condition: Improving Discharge Details Reason For Visit: Pneumonia Admit Date/Time: 06/04/23 22:46 Admit Provider: Alber Garcia Attending Provider: Alber Garcia Primary Care Provider: Susannah Malhotra Hospital Course Hospital Course: This is a 68 year old male patient with past medical history of COPD, prior pneumonia, PE, who presented to the [facility] ED for evaluation of increased productive cough with shortness of breath and fever ~ 39c at home. He denied CP. He is on 2 LPM oxygen at home, in ED he arrived with oxygen saturations in the 80's with diffuse wheezes. His chest xray showed RUL infiltrate with diffuse interstitial pattern and CTA negative for PE. Viral swab negative x 3. Labs in the ED WBC 9.73, hemoglobin and hematocrit 12/36, procalcitonin negative. Patient was started on IV antibiotics and duonebs, and admitted to the hospital for further testing and treatment. Blood cultures negative. He was seen by pulmonology and started on prednisone 40 mg for 5 days, stiolto, asmanex in place of flovent and duonebs. He had a full course of azithromycin and ceftriaxone. He should follow up with his general technician, Dr Younger, at [facility] in 2 months and have a repeat CT scan to check for resolution of infiltrates. He should continue his home care regime and oxygen as needed. Home Meds and New Rx's Prescriptions: New benzonatate 200 mg Capsule 200 mg PO TID Qty: 30 0RF codeine-guaifenesin 10-100 mg/5 mL Liquid 5 ml PO Q12H PRN PRNQty: 120 0RF prednisone 20 mg Tablet 40 mg PO DAILY Qty: 2 0RF Continued Anoro Ellipta 62.5-25 mcg/actuation blister with device 1 inh IH Q24H Hold Instructions: Pt weaned himself off; Pulm aware Eliquis 5 mg tablet 5 mg PO BID aspirin [Aspir-81] 81 MG tablet,delayed release (DR/EC) 81 mg PO UNKNOWN Rx Instructions: Takes it every other day- last taken 06/02/23 CT lisinopril 2.5 mg tablet 5 mg PO DAILY omeprazole 20 mg capsule,delayed release(DR/EC) 20 mg PO DAILY ibuprofen 600 mg tablet 600 mg PO TID-QID PRN (Reason: pain) Qty: 60 3RF Rx Instructions: take w/ food albuterol sulfate 1.25 mg/3 mL Solution For Nebulization 1.25 mg inhalation PRN PRN polyethylene glycol 3350 17 gram Powder In Packet 17 g PO DAILY PRN PRN (Reason: Constipation) Qty: 1 2RF Patient Comments: no longer takes 06/04/23 CT fluticasone propionate [Flovent HFA] 220 mcg/actuation HFA aerosol inhaler 1 puff IH BID Qty: 1 3RF Hold Instructions: Pt weaned himself off; Pulm aware Rx Instructions: administer with spacer, use with Annora. May substitute 250mcg Diskus inhaled one puff BID if better covered. albuterol sulfate [Ventolin HFA] 90 mcg/actuation HFA aerosol inhaler 2 puff IH Q6H PRNQty: 1 0RF folic acid 1 mg Tablet 1 mg PO DAILY Qty: 30 0RF Discontinued metformin 500 mg tablet 500 mg PO BID Paxlovid 300 mg (150 mg x 2)-100 mg tablets,dose pack See Rx Instructions PO .COMPLEX Qty: 30 0RF Patient Comments: RX complete 06/04/23 CT Rx Instructions: REDUCE ELIQUIS BY 1/2 - take TWO 150 mg tablets of nirmatrelvir with ONE 100 mg tablet of ritonavir twice daily for 5 days PO Discharge Instructions Instructions: Prednisone (By mouth), COPD (Chronic Obstructive Pulmonary Disease) (DC), Pneumonia (DC) Additional Instructions: Patient has been prescribed Metformin, never filled it and is not and does not want to, take it. It has been discontinued in his home med list. Stand Alone Forms: Nursing Discharge Form Referrals: Russel Younger MD [ NON-[facility] STAFF PHYSICIAN] - (Please call Sunday for Appointment in 2-4 weeks Recommend he obtain a repeat chest CT in around 2 months time to ensure resolution of the pneumonia and to be sure the LLL infiltrate is not or malignant potential.) Susannah Malhotra [Primary Care Provider] - (Please call Sunday to make appointment for 1-2 weeks. Patient has been prescribed Metformin, never filled it and is not and does not want to, take it. It has been discontinued from his home med list. ) Activity:: Activity as Tolerated Equipment/Supplies:: Oxygen (L/min Below) Diet:: As Tolerated Discharge Orders Discharge Orders: Discharge Order (Routine); Ordered 06/10/23 Ordered By: Brooklynn Jordan Discharge Data Discharge Date/Time-TO BE ENTERED AT DEPARTURE: 06/10/23 15:06 DS: Summary Time Spent with Patient providing and/or coordinating discharge services: Greater than 30 minutes Status at Discharge Functional status at discharge: independent ambulation Overall status at discharge: patient is back to baseline Mental Status: mental status grossly normal Speech and Movement: speech and movement normal Mood: congruent mood Affect: normal affect Exam Narrative Exam Narrative: General: Pleasant male, conversant, no coughing while I was present about 40 min total HEENT: EOMI, MMM Heart: RRR, no m/r/g Lungs: distant bilat, otherwise remarkably clear at time of exam Abdomen: soft, nontender, nondistended Extremities: no edema BLEs Psych Mental Status: mental status grossly normal Speech and Movement: speech and movement normal Mood: congruent mood Affect: normal affect DS: Data Vitals/I&O Vitals and I&O: Vital Signs Temperature 36.3 C L 06/10/23 08:33 Temperature Source Tympanic 06/10/23 08:33 Pulse 79 06/10/23 08:33 Pulse Rhythm Irregular 06/10/23 08:13 Respiratory Rate 22 06/10/23 08:33 Respiratory Effort Normal 06/10/23 08:21 Respiratory Depth Normal 06/10/23 08:13 Respiratory Pattern Irregular 06/10/23 08:21 Blood Pressure 127/88 06/10/23 08:33 Blood Pressure Position Sitting 06/04/23 17:32 Pulse Oximetry 92 06/10/23 08:33 Oxygen Delivery Method Room Air 06/10/23 12:37 Oxygen Flow Rate 0 06/10/23 12:37 Pain Level 0 06/10/23 08:33 Comment pt is copd and o2 sat base is in 80s 06/09/23 06:38 Intake & Output 0906/10/23 06/10/23 23:59 11:59 23:59 Intake Total 310 / 310 Output Total 925 / 925 200 / 200 Balance -615 / -615 -200 / -200 Intake: IV 310 / 310 Output: Urine 925 / 925 200 / 200 Other: Urine Color Yellow Pale Yellow Urine Appearance Clear Clear Urine Odor Normal Comment pt stated that he has urinated brp x4 Stool Size Large Stool Characteristics Soft Voiding Methods Toilet Urinal Urinal Data Completed and Pending Labs on day of discharge: Labs from last 24 hours 06/10/23 06/10/23 06/10/23 07:41 07:00 07:00 WBC 11.19 H RBC 4.15 L Hgb 12.2 L Hct 36.7 L MCV 88 MCH 29.4 MCHC 33.2 RDW 13.1 Plt Count 441 H MPV 8.5 Immature Gran % 2.1 Neutrophils % 63.2 Lymphocytes % 25.3 Monocytes % 6.8 Eosinophils % 1.5 Basophils % 1.1 Nucleated RBC % 0.0 Absolute Neutrophils 7.07 H Absolute Lymphocytes 2.83 Absolute Monocytes 0.76 Absolute Eosinophils 0.17 Absolute Basophils 0.12 Sodium Potassium Chloride Carbon Dioxide Anion Gap BUN Creatinine Est GFR (CKD-EPI 2020) Glucose Hemoglobin A1c 6.2 H Calcium Magnesium C-Reactive Protein Add-On Test Request COMPLETED 06/10/23 07:00 WBC RBC Hgb Hct MCV MCH MCHC RDW Plt Count MPV Immature Gran % Neutrophils % Lymphocytes % Monocytes % Eosinophils % Basophils % Nucleated RBC % Absolute Neutrophils Absolute Lymphocytes Absolute Monocytes Absolute Eosinophils Absolute Basophils Sodium 139 Potassium 3.7 Chloride 102 Carbon Dioxide 29.9 Anion Gap 7.1 BUN 20 H Creatinine 1.2 Est GFR (CKD-EPI 2020) 65.06 Glucose 103 Hemoglobin A1c Calcium 9.0 Magnesium 2.0 C-Reactive Protein 2.71 H Add-On Test Request Preliminary micro results at discharge 06/06/23 11:30 Blood Culture - Preliminary Blood NO GROWTH 72 HOURS 06/06/23 11:20 Blood Culture - Preliminary Blood NO GROWTH 72 HOURS PFSH All Active Problems (Updated 06/07/23 @ 18:58 by Barb Head MD) Respiratory failure with hypoxia (Acute) Hemoptysis (Acute) Dupuytren's contracture of left hand (Acute) Discharge planning issues (Acute) DVT prophylaxis (Acute) Pneumonia (Acute) Pulmonary embolism (Chronic) COPD exacerbation (Acute) Pneumonia (Acute) Breath shortness (Acute) Dupuytren's contracture of right hand (Acute) s/p partial release Nodular fasciitis (Acute) At risk for stress ulcer (Acute) DVT prophylaxis (Acute) COPD with exacerbation (Acute) HTN (hypertension) (Chronic) COPD (chronic obstructive pulmonary disease) (Chronic) Emphysematous bleb of lung (Acute) repeat cxr shows no signs of recurrence of PTX does have general technician he follows up with. I did find an old CT chest and reviewed w/ him. Does show signif changes from COPD. signif blebs throughout entire lung. pt is not surgical candidate. cont pulm toilet no restrictions on activity at this time can use oil to remove tape residue. f/u w/ pulm to see if can find a better combo of inhalers to improve breathing Ruptured emphysematous bleb (Acute) on left lung Medical History (Updated 06/07/23 @ 18:58 by Barb Head MD) COPD (chronic obstructive pulmonary disease) Spontaneous pneumothorax Surgical History Arthroplasty of knee Colonoscopy - MAC (07/07/16) Social History Smoking/Tobacco Use Status: Former Tobacco Use Pack-years: 51 Tobacco: How many years used: 51 Smoking risk assessment performed?: Yes Alcohol Intake: current Alcohol Intake frequency: a few times a week Alcohol type: beer and hard liquor Drug use: Never Substance use type: does not use Household members: other Details: has a boarder to whom he rents a room Housing: apartment Current gender identity: male Do you feel safe at home: Yes Do you feel safe in your relationship?: Yes Additional Social history: 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
--- NOTE | 2023-06-10 14:24 | PDOC.CMDIS ---
Date of service: 06/10/23 Time of Service: 14:26 LACE Index Scoring Tool Questions: Length of Stay (in days): 4 - 6 Was the patient admitted via the E.D.?: Yes Comorbidities: Chronic Pulmonary Disease E.D. Visits: 0 Answers: Total Score: 9 Risk of Readmission: Low Risk Care Management Discharge Plan Reason for Hospitalization: Pneumonia Discharge Plan: Jimmy will return home with no additional services when medically cleared by provider. He will follow up with his PCP, [facility] (Dr. Younger), and plan of care as instructed. He will be transport home via private vehicle with his brother. Patient/Family Education Needs: Review discharge instructions, discuss Ask Me Three.
[2023-06-12 15:11] LABS: Streptococcus Pneumoniae Ag, U Negative (Negative)
== END 2023-06-10 15:06 | disposition home or self-care (01) | DRG 193 ==
LOC: ER 22:52 → MS 23:41
PROVIDERS: Internal Medicine; Nurse Practitioner Acute Care; Nurse Practitioner Family; Admitting Provider General Practice; Emergency Provider Physician Assistant; PCP Family Medicine; Visit Provider General Practice
DX: J18.9 Pneumonia, unspecified organism (principal); J96.21 Acute and chronic respiratory failure with hypoxia; J44.0 Chronic obstructive pulmonary disease with (acute) lower respiratory infection; J44.1 Chronic obstructive pulmonary disease with (acute) exacerbation; R04.2 Hemoptysis; M72.4 Pseudosarcomatous fibromatosis; I10 Essential (primary) hypertension; Z87.891 Personal history of nicotine dependence; Z86.711 Personal history of pulmonary embolism; Z86.16 Personal history of COVID-19
CPT/HCPCS: 36415; 71275; 80048; 80053; 84145; 87040; 87449; 87635; 87637; 93005; 94618; 94640; 96365; 96368; 99285; 71046; 83036; 83735; 84484; 85025; 85379; 86140; 87070; 87205; 87581; 87899; 93010; 94664; 94667; 94668; 94760; 99222; 99232; 99233; 99239; J0456; J0696; J1941; J3490; J7512; J7613; J7620

== ENCOUNTER 2024-04-21 15:13 | Outpatient (REF) | payer MEDICARE, BC, SELFPAY ==
[2024-04-21 15:04] LABS: HCT 46.5 % (40.0-50.0); HGB 15.3 g/dL (13.5-17.5); MCH 29.6 pg (27.0-33.0); MCHC 32.9 % (32.0-36.0); MCV 90 fL (80-95); MPV 9.5 fL (8.0-11.0); Platelet Count 280 10^3/uL (130-400); RBC 5.17 10^6/uL (4.36-5.78); RDW 12.4 % (11.8-14.1); RDW-SD 40.5 fL; WBC 7.33 10^3/uL (4.4-10.8)
--- OUTSIDE RECORDS SUMMARY | 2024-04-21 15:15 | XMS_ITS | Encounter Summary ---
Author Organization [facility] [place] [address] Care Team Providers Care Scrap Bunch Maker Name Role Phone Susannah Malhotra MD Primary Care Provider [phone] Encounter Details Date Type Department Care Team (Latest Contact Info) Description 11/26/2023 Travel Social History Tobacco Use Types Packs/Day Years Used Date Smoking Tobacco: Former Cigarettes 1.5 40 0 11/17/1977 - 11/17/2017 Smokeless Tobacco: Never Alcohol Use Standard Drinks/Week Comments Yes 4 (1 standard drink = 0.6 oz pur e alcohol) occ. Sex and Gender Information Value Date Recorded Sex Assigned at Not on file Gender Identity Not on file Sexual Orientation Not on file documented as of this encounter Plan of Treatment Upcoming Encounters Date Type Department Care Team (Late st Contact Info) Description 05/02/2024 11:00 AM EDT Office [place] [address] Cristian Carolina Jr., MD [facility] [place] [address] documented as of this encounter Visit Diagnoses Not on filedocumented in this encounter Care Teams Scrap Bunch Maker Relationship Specialty Start Date End Date Susannah Malhotra MD [address] [place] [address] PCP - General Family Medicine 04/22/20 documented as of this encounter
--- OUTSIDE RECORDS SUMMARY | 2024-04-21 15:15 | XMS_ITS | Encounter Summary ---
Author Organization [facility] [address] Care Team Providers Care Bunch Breaker Machine Operator Name Role Phone Susannah Malhotra MD Primary Care Provider [phone] Encounter Details Date Type Department Care Team (Late st Contact Info) Description 07/17/2023 Telephone [place] [phone] Risa Garcia Social History Tobacco Use Types Packs/Day Years Used Date Smoking Tobacco: Former Cigarettes 1.5 40 0 11/17/1977 - 11/17/2017 Smokeless Tobacco: Never Alcohol Use Standard Drinks/Week Comments Not Currently 4 (1 standard drink = 0.6 oz pur e alcohol) Sex and Gender Information Value Date Recorded Sex Assigned at Not on file Gender Identity Not on file Sexual Orientation Not on file documented as of this encounter Miscellaneous Notes * Telephone Encounter - Risa Garcia - 07/17/2023 4:20 PM EDT Copied from CRM #[id number]. Topic: Specialty Dept CRMs - Appointment Needed >> Jan 23, 2023 10:39 AM Beena Llanos wrote: Appt Needed Specialist Dr Younger Relationship (if other than patient-full name): none Appt. Type Needed: FUV Reason for Visit: pt would like a FUV appt but not at 8:00 am. This agent could not find an openingfor him Please call to schedule documented in this encounter Plan of Treatment Upcoming Encounters Date Type Department Care Team (Late st Contact Info) Description 05/02/2024 11:00 AM EDT Office [place] [address] Cristian Carolina Jr., MD [facility] [place] [address] documented as of this encounter Visit Diagnoses Not on filedocumented in this encounter Care Teams Bunch Breaker Machine Operator Relationship Specialty Start Date End Date Susannah Malhotra MD [address] [place] [id number] PCP - General Family Medicine 04/22/20 documented as of this encounter
--- OUTSIDE RECORDS SUMMARY | 2024-04-21 15:15 | XMS_ITS | Encounter Summary ---
Author Organization [facility] Address [address] [place] [address] Care Team Providers Care Shoe Puller Name Role Phone Alber Garcia MD Primary Care Provider [phone] Encounter Details Date Type Department Care Team (Late st Contact Info) Description 05/21/2020 Lab Requisition [facility] Pathology & Laboratory Medicine - [address] [address] Outr Resulting Lab, Provider Social History Tobacco Use Types Packs/Day Years Used Date Smoking Tobacco: Never Assessed Sex and Gender Information Value Date Recorded Sex Assigned at Not on file Gender Identity Not on file Sexual Orientation Not on file documented as of this encounter Plan of Treatment Not on file documented as of this encounter Procedures Procedure Name Priority Date/Time Associated Diagnosis Comments PSA TOTAL, DIAGNOSTIC Routine 05/20/2020 8:40 EDT documented in this encounter Results * (ABNORMAL) PSA TOTAL, DIAGNOSTIC (05/20/2020 8:40 EDT) PSA 4.8(H) 0.0 - 4.5 ng/mL 05/24/2020 9:03 EDT [facility] Blood VENOUS BLOOD / Unknown 05/20/2020 8:40 EDT 05/21/2020 16:08 EDT Narrative [facility] - 05/24/2020 9:03 EDT NOTE: Serum PSA concentration should not be interpreted as absolute evidence for the presence or absence of malignant disease. Assayed on Siemens ADVIA InspireMDaur XPT using chemiluminescent technology.??Values obtained by using different assay methods cannot be used interchangeably. Provider Outr Resulting Lab CHEMISTRY & BLOOD GAS ORDERABLES [facility] [address] [place] [address] documented in this encounter Visit Diagnoses Not on filedocumented in this encounter Care Teams Shoe Puller Relationship Specialty Start Date End Date Alber Garcia MD PCP - General 07/11/16 documented as of this encounter
--- OUTSIDE RECORDS SUMMARY | 2024-04-21 15:15 | XMS_ITS | Encounter Summary ---
Author Organization [facility] Address [address] [place] [address] Care Team Providers Care Grout Machine Operator Name Role Phone Alber Garcia MD Primary Care Provider [phone] Encounter Details Date Type Department Care Team (Late st Contact Info) Description 05/07/2020 Lab Requisition [facility] Pathology & Laboratory Medicine - [facility] [address] [place] [address] Outr Resulting Lab, Provider Social History Tobacco [...] Procedure Name Priority Date/Time Associated Diagnosis Comments DO NOT ORDER STANDALONE - BROAD COVID TEST Today 05/07/2020 9:56 EDT COVID-19 TESTING Routine 05/07/2020 9:56 EDT documented in this encounter Results * DO NOT ORDER STANDALONE - BROAD COVID TEST (05/07/2020 9:56 EDT) COVID-19 rt-PCR Result NEGATIVE Negative 05/08/2020 22:09 EDT [facility] Comment: 2019-novel Coronavirus (2019-nCoV) not detected by the qRT-PCR assay. Consider testing for other respiratory viruses or re-collecting for 2019-nCoV testing. Note: Optimum timing for peak viral levels during infections caused by 2019-nCoV have not been determined. Collection of multiple specimens from the same patient may be necessary to detect the virus. Limitations Positive results are indicative of active infection with SARS-CoV-2 but do not rule out bacterial infection or co-infection with other viruses. The agent detected may not be the definite cause of disease. In addition, detection of viral RNA may not indicate the presence of infectious virus or that SARS-CoV-2 is the causative agent for clinical symptoms. Negative results do not preclude SARS-CoV-2 infection and should not be used as the sole basis for patient management decisions. Negative results must be combined with clinical observations, patient history, and epidemiological information. False negative results may also occur if amplification inhibitors are present in the specimen or if inadequate numbers of organisms are present in the specimen. Optimum specimen types and timing for peak viral levels during infections caused by SARS-CoV-2 have not been fully determined. Collection of multiple specimens (types and time points) from the same patient may be necessary to detect the virus. The test was validated for use with upper respiratory specimens obtained via nasopharyngeal or oropharyngeal swabs in VTM, UTM, M4, M5, M6, saline, and MTM media. The performance of this test has not been established for other specimens. Specimens collected using other FDA recommended Specimen Collection Materials listed in the FDA COVID-19 [employer] communication (January 01, 2020) are processed with the caveat that they were not all validated for use with this test and the result must be interpreted in this context. Furthermore, a false negative results may occur if a specimen is improperly collected, transported or handled. If the virus mutates in the RT-PCR target region, SARS-CoV-2 may not be detected or may be detected less predictably. Inhibitors or other types of interference may produce a false negative result. An interference study evaluating the effect of common cold medications was not performed. This test is not FDA-cleared but its performance characteristics were established by our CLIA-certified, CAP-accredited, high complexity laboratory in accordance with CLIA regulations, [employer] (CAP) guidelines (Dec 25, 2019), and FDA guidance (Dec 06, 2019). This test is only for use under the Food and Drug Administration's Emergency Use Authorization. Swab ENTIRE NASOPHARYNX / Unknown 05/07/2020 9:56 EDT 05/07/2020 15:55 EDT Provider Outr Resulting Lab MICROBIOLOGY - GENERAL ORDERABLES [facility] [place], [place] * COVID-19 TESTING (05/07/2020 9:56 EDT) COVID-19 rt-PCR Result NEGATIVE Negative 05/09/2020 0:11 EDT [facility] Comment: 2019-novel Coronavirus (2019-nCoV) not detected by the qRT-PCR assay. Consider testing for other respiratory viruses or re-collecting for 2019-nCoV testing. Note: Optimum timing for peak viral levels during infections caused by 2019-nCoV have not been determined. Collection of multiple specimens from the same patient may be necessary to detect the virus. Limitations Positive results are indicative of active infection with SARS-CoV-2 but do not rule out bacterial infection or co-infection with other viruses. The agent detected may not be the definite cause of disease. In addition, detection of viral RNA may not indicate the presence of infectious virus or that SARS-CoV-2 is the causative agent for clinical symptoms. Negative results do not preclude SARS-CoV-2 infection and should not be used as the sole basis for patient management decisions. Negative results must be combined with clinical observations, patient history, and epidemiological information. False negative results may also occur if amplification inhibitors are present in the specimen or if inadequate numbers of organisms are present in the specimen. Optimum specimen types and timing for peak viral levels during infections caused by SARS-CoV-2 have not been fully determined. Collection of multiple specimens (types and time points) from the same patient may be necessary to detect the virus. The test was validated for use with upper respiratory specimens obtained via nasopharyngeal or oropharyngeal swabs in VTM, UTM, M4, M5, M6, saline, and MTM media. The performance of this test has not been established for other specimens. Specimens collected using other FDA recommended Specimen Collection Materials listed in the FDA COVID-19 [employer] communication (January 01, 2020) are processed with the caveat that they were not all validated for use with this test and the result must be interpreted in this context. Furthermore, a false negative results may occur if a specimen is improperly collected, transported or handled. If the virus mutates in the RT-PCR target region, SARS-CoV-2 may not be detected or may be detected less predictably. Inhibitors or other types of interference may produce a false negative result. An interference study evaluating the effect of common cold medications was not performed. This test is not FDA-cleared but its performance characteristics were established by our CLIA-certified, CAP-accredited, high complexity laboratory in accordance with CLIA regulations, [employer] (CAP) guidelines (Dec 25, 2019), and FDA guidance (Dec 06, 2019). This test is only for use under the Food and Drug Administration's Emergency Use Authorization. Performing Lab [facility] 05/09/2020 0:11 EDT [facility] Swab 05/07/2020 9:56 EDT 05/07/2020 15:55 EDT Provider Outr Resulting Lab MICROBIOLOGY - GENERAL ORDERABLES [facility] [address] [place], [place] [id number] [place] [address] LABORATORY [place], [place] documented in this encounter Visit Diagnoses Not on filedocumented in this encounter Care Teams Grout Machine Operator Relationship Specialty Start Date End Date Alber Garcia MD PCP - General 07/11/16 documented as of this encounter
--- OUTSIDE RECORDS SUMMARY | 2024-04-21 15:15 | XMS_ITS | Clinical Summary ---
Author Organization [facility] Address [facility] [place] [address] Care Team Providers Care Professional Bass Fisherman Name Role Phone Susannah Malhotra MD Primary Care Provider [phone] Allergies No known active allergies Medications Medication Sig Dispensed Refills Start Date End Date Status lisinopril (PRINIVIL;ZESTRIL) 5 mg Tablet Take 5 mg by mouth daily. 3 06/26/2018 Active folic acid (Folvite) 1 mg Tablet Take 1 mg by mouth daily. 11/27/2020 Active omeprazole (PriLOSEC) 20 mg Capsule, Delayed Release(E.C.) Take 20 mg by mouth daily. 03/09/2021 Active albuteroL 90 mcg/actuation HFA Aerosol Inhaler Inhale 2 puffs into the lungs every 6 hours as needed. 10/05/2020 Active apixaban (Eliquis) 5 mg Tablet Take 5 mg by mouth 2 times daily. Active Flovent HFA 220 mcg/actuation HFA Aerosol Inhaler Inhale 1 puff into the lungs 2 times daily. 01/16/2022 Active sildenafiL (Viagra) 100 mg tablet TAKE ONE TABLET BY MOUTH 1/2 HOUR PRIOR TO INTERCOURSE 02/03/2023 Active triamcinolone (Kenalog) 0.1 % Cream APPLY A SMALL AMOUNT TO AFFECTED AREA(S) ONCE DAILY 02/03/2023 Active Anoro Ellipta 62.5-25 mcg/actuation Disk with Device Inhale 1 puff into the lungs daily. 10/25/2023 Active Pulmicort Flexhaler 90 mcg/actuation Aerosol Powdr Breath Activated Inhale 2 puffs into the lungs 2 times daily. 11/09/2023 Active ibuprofen (Advil) 200 mg tablet Take 600 mg by mouth every 6 hours as needed for Pain. Active Active Problems Problem Noted Date Diagnosed Date Dupuytren's contracture of left small finger Dupuytren's contracture of both hands 06/13/2023 Shortness of breath 04/09/2022 Stage 2 moderate COPD by GOLD classification Exercise hypoxemia 02/18/2021 Panlobular emphysema 04/30/2020 Right upper lobe pulmonary nodule 04/30/2020 Pulmonary embolism 06/23/2019 Encounters Date Type Department Care Team Description 02/18/2024 [place] [phone] Carlos Casillas RN Oxygen Dependence (SWO form) 01/31/2024 [place] [phone] Risa Garcia 01/30/2024 [place] [phone] Carlos Casillas, RN from Last 3 Months Immunizations Name Administration Dates Next Due Influenza Quadrivalent, Preservative Free 2018 Pneumococcal Polysaccharide (Pneumovax 23) 12/12 Family History Medical History Relation Comments Heart Disease Father Hypertension Father Aneurysm Mother Chronic Obstructive Pulmonary Disease Mother Cancer Paternal Uncle Leukemia Paternal Uncle Relation Status Comments Father Mother Paternal Uncle lung Social History Tobacco Use Types Packs/Day Years Used Date Smoking Tobacco: Former Cigarettes 1.5 40 0 11/17/1977 - 11/17/2017 Smokeless Tobacco: Never Alcohol Use Standard Drinks/Week Comments Not Currently 4 (1 standard drink = 0.6 oz pur e alcohol) occ. Sex and Gender Information Value Date Recorded Sex Assigned at Not on file Gender Identity Not on file Sexual Orientation Not on file Last Filed Vital Signs Vital Sign Reading Time Taken Comments Blood Pressure 123/81 04/26/2023 10:50 AM EDT Pulse 74 04/26/2023 10:50 AM EDT Temperature 36.3 ??C (97.4 ??F) 04/26/2023 10:50 AM E DT Respiratory Rate 20 04/26/2023 10:50 AM EDT Oxygen Saturation 97% 04/26/2023 10:50 AM EDT Inhaled Oxygen Concentration - - Weight 103.4 kg (228 lb) 11/28/2023 11:00 AM EST Height 180.3 cm (5' 11) 11/28/2023 11:00 AM EST Body Mass Index 31.8 11/28/2023 11:00 AM EST Plan of Treatment Upcoming Encounters Date Type Department Care Team (Late st Contact Info) Description 05/02/2024 11:00 AM EDT Office [place] [address] Cristian Carolina Jr., MD [facility] [place] [address] Health Maintenance Due Date Last Done Comments CT Colonography 1955 Colonoscopy 1953 Colorectal Cancer Screening 1953 FIT DNA 1953 FIT 1953 Sigmoidoscopy (10 year) with FIT yearly 1955 Sigmoidoscopy 1955 Hepatitis C Screening 1971 Tdap adult 1972 Tetanus vaccine 1972 Zoster vaccine (1 of 2) 2003 Advance Directive 2008 AAA Screen 2018 Pneumoccocal Vaccine: 65+ (2 of 2 - PCV) 12/13/2019 12/12/2018 Covid-19 Vaccine (1 - 2022-2 4 season) 2023 Influenza (Flu) vaccine (1 o f 1 - Influenza standard series) 06/08/2024 12/12/2018 Lipid Screening 06/24/2024 06/24/2019 Diabetes Screening (HgbA1C o r Glucose) Discontinued 2022, 04/13/2022, 04/12/2022, Additional history exists Procedures Procedure Name Priority Date/Time Associated Diagnosis Comments BASIC METABOLIC PANEL (NON-FASTING) Routine 2022 5:14 AM EDT LIPID PANEL (REFLEX DIRECT LDL) Routine 06/24/2019 6:05 AM EDT from Last 3 Months or Most Recently Relevant to Health Maintenance Results * (ABNORMAL) Basic Metabolic Panel (non-fasting) (2022 5:14 AM EDT) Glucose Lvl 106 65 - 199 mg/dL [facility] Comment:Diabetes: >=200 mg/d L plus symptoms BUN 22(H) 10 - 20 mg/dL [facility] Creatinine 1.00 0.80 - 1.50 mg/dL [facility] Sodium 137 135 - 145 mmol/L [facility] Potassium 4.4 3.5 - 5.0 mmol/L [facility] Comment: Please note: ??Patients with WBC >100,000 may have falsely elevated Potassium levels. ??For accurate Potassium quantification in these patients send serum separator tube (gold top) for subsequent determinations. ??Contact the Clinical Chemistry Laboratory if there are any questions. Chloride 102 98 - 107 mmol/L [facility] CO2 23 22 - 31 mmol/L [facility] Anion Gap 12 5 - 15 mmol/L [facility] Calcium 8.6 8.5 - 10.5 mg/dL [facility] Estimated GFR 81 >=60 mL/min/1. 73 m?? [facility] Comment: This patient's estimated GFR was calculated using the 2020 CKD-EPI equation. The estimated GFR can vary from the measured GFR by up to 30% in the absence of rapidly changing kidney function. Assessment of the estimated GFR is not appropriate when creatinine concentrations are rapidly changing. For clinical situations in which a more precise estimate of GFR is necessary, consider alternative methods of GFR estimation such as a 24-hour urine creatinine clearance. Assignment of CKD stage 1-5 for patients with an eGFR near the transition point between stages may be based on clinical assessment of muscle mass and symptoms in addition to eGFR. Blood 2022 5:14 AM EDT 2022 5:26 AM EDT Narrative Resulting Agency Comment Spec In Lab Attila Daniel MD CHEMISTRY ORDERABLES [facility] [place] [address] * Lipid Panel (Reflex Direct LDL) (06/24/2019 6:05 AM EDT) Chol, Total 173 mg/dL [facility] Comment: Lower Risk: <200 mg/dL Average Risk: 200-239 mg/dL Higher Risk: >ct=011 mg/dL Triglycerides 56 mg/dL [facility] Comment: Average Risk/Lower Risk: <150 mg/dL Borderline High Risk: 150-199 mg/dL High Risk: 200-499 mg/dL Very High Risk: >ak=735 mg/dL HDL 40 mg/dL [facility] Comment: Males: ?? Higher Risk: <40 mg/dL Females: ?? HIgher Risk: <50 mg/dL LDL Cholesterol 122 mg/dL [facility] Comment: Lowest Risk: <100 mg/dL Lower Risk: 100-129 mg/dL Borderline High Risk: 130-159 mg/dL High Risk: 160-189 mg/dL Very High Risk: >gl=482 mg/dL Chol/HDL Ratio 4.3 ratio [facility] Lipid Interpretation See Note [facility] Comment: Lipid management should be guided by a patient? s ASCVD risk, goals and preferences. ACC/AHA Guidelines recommend high intensity statin if clinical ASCVD or LDL greater than or equal to 190 mg/dL. http://[email or web address] [email or web address]/S.com/JQT-KJU-Kfukkxolx Adults aged 40-75 with LDL 70-189 mg/dL should have their 10 year ASCVD risk estimated with the ACC/AHA ASCVD risk upholstery estimator http://tools.acc.org/GBFPY-Sdsu-Njjurlcza/ Statin should be discussed if risk greater than or equal to 7.5% in non-diabetics. With diabetes, moderate intensity statin is recommended if risk less than 7.5%, high intensity if risk greater than or equal to 7.5%. Annual lipid monitoring on statins is not necessary. Evaluate secondary causes of Triglycerides greater than 500 mg/dL or LDL greater than 190 mg/dL: See table 6 of ACC/AHA Guideline. Lifestyle modification is a critical component of ASCVD risk reduction. Blood specimen (specimen) 06/24/2019 6:05 AM EDT 06/24/2019 6:26 AM EDT Narrative Resulting Agency Comment Spec In Lab Elkin Dixon MD CHEMISTRY ORDERABLES [facility] [place] [address] from Last 3 Months or Most Recently Relevant to Health Maintenance Advance Directives * Attempt Cardiopulmonary Resuscitation - Inpatient (Latest Code Status on File) Date Activated Date Inactivated Comments 04/09/2022 3:07 PM 2022 6:24 PM Question Answer Comments Code Status decision made by: Patient * Full Code Date Activated Date Inactivated Comments 06/23/2019 10:52 PM 06/25/2019 4:22 PM Question Answer Comments Does patient have capacity to make decision: Yes Care Teams Professional Bass Fisherman Relationship Specialty Start Date End Date Susannah Malhotra MD [address] [place] [address] PCP - General Family Medicine 04/22/20
--- OUTSIDE RECORDS SUMMARY | 2024-04-21 15:15 | XMS_ITS | Encounter Summary ---
Author Organization [facility] Address [address] [place] [address] Care Team Providers Care Erp Manager Name Role Phone Unavailable Primary Care Provider Unavailabl e Encounter Details Date Type Department Care Team (Latest Contact Info) Description 07/07/2016 7:52 EDT - 07/07/2016 23:59 EDT Hospital Encounter [address] [address] Unknown, Provider, Discharge Disposition: Home or Self Care Social History Tobacco Use Types Packs/Day Years Used Date Smoking Tobacco: Never Assessed Sex and Gender Information Value Date Recorded Sex Assigned at Not on file Gender Identity Not on file Sexual Orientation Not on file documented as of this encounter Discharge Disposition Disposition Code Departure Means Destination Home or Self Intermediate documented in this encounter Plan of Treatment Not on file documented as of this encounter Visit Diagnoses Not on filedocumented in this encounter
--- OUTSIDE RECORDS SUMMARY | 2024-04-21 15:15 | XMS_ITS | Encounter Summary ---
[place] [address] Care Team Providers Care Metaphysics Teacher Name Role Phone Susannah Malhotra MD Primary Care Provider [phone] Encounter Details Date Type Department Care Team (Late st Contact Info) Description 01/30/2024 Telephone [place] [phone] Carlos Casillas RN Social History Tobacco Use Types Packs/Day Years [...] encounter Miscellaneous Notes * Telephone Encounter - Carlos Casillas RN - 01/30/2024 1:21 PM EDT RN called back to patient, and was able to speak to Jeremiah. He identified himself with two identifiers. Jeremiah explained that he is having difficulty at times when walking from his car to stores, and would like to have paperwork filled out for a parking placard. Per [place] Medical Evaluation forms, patient must have had appointment within 6 months for provider to complete paperwork. RN called back and updated patient, whom is okay waiting until his appointment on 05/02/2024. * Telephone Encounter - Carlos Casillas RN - 01/30/2024 1:20 PM EDT Copied from [facility] #[id number]. Topic: Specialty Dept CRMs - Form Request >> Jan 29, 2024 3:05 PM Barb Dietz wrote: Patient is requesting to have form completed Specialist Russel Younger Relationship (if other than patient-full name): patient Type of paperwork: handicap placard Provider: Russel Younger-SHARONA with Cristian Carolina scheduled in April Dropped off at the office on: Faxed to (what number): Mailed to the office on: When does patient need to have form completed by: For letter request, what is the letter for and what does the letter need to say: Patient looking tostart process on getting a handicap placard or window tag as sometimes he gets winded walking long distances when his lungs are acting up After completion please: Mail to: Fax to: Send to [facility]: Call for fiber picker: Who [Patient] Phone [] Patient informed that completion of this request can take 5-7 business days. documented in this encounter Plan of Treatment Upcoming Encounters Date Type Department Care Team (Late st Contact Info) Description 05/02/2024 11:00 AM EDT Office [place] [address] Cristian Carolina Jr., MD [facility] [place] [address] documented as of this encounter Visit Diagnoses Not on filedocumented in this encounter Care Teams Metaphysics Teacher Relationship Specialty Start Date End Date Susannah Malhotra MD [address] [place] [address] PCP - General Family Medicine 04/22/20 documented as of this encounter
--- OUTSIDE RECORDS SUMMARY | 2024-04-21 15:15 | XMS_ITS | Encounter Summary ---
[place] [address] Care Team Providers Care Program Director/Air Personality Name Role Phone Susannah Malhotra MD Primary Care Provider Reason for Visit * Reason Onset Date Comments Oxygen Dependence 02/18/2024 SWO form Encounter Details Date Type Department Care Team (Late st Contact Info) Description 02/18/2024 Telephone [place] [phone] Carlos Casillas RN Oxygen Dependence (SWO form) Social History Tobacco Use Types Packs/Day Years [...] Telephone Encounter - Carlos Casillas RN - 03/25/2024 2:23 PM EDT Faxed completed Standard Written Order form, signed by Dr. Younger, to [facility] Attn: Artemio Logan. This covered the following items: E1392 - Portable Oxygen Concentrator E1390 - Oxygen Concentrator E0443 - Portable O2 Contents, Gas Fax submission confirmation time stamped for 02/18/2024 @ 8568. 3 pages with cover sheet. Copy of Standard Written Order form sent to scanning for inclusion to patient records. documented in this encounter Plan of Treatment Upcoming Encounters Date Type Department Care Team (Late st Contact Info) Description 05/02/2024 11:00 AM EDT Office [place] [address] Cristian Carolina Jr., MD [facility] [place] [address] documented as of this encounter Visit Diagnoses Not on filedocumented in this encounter Care Teams Program Director/Air Personality Relationship Specialty Start Date End Date Susannah Malhotra MD [address] [place] [address] PCP - General Family Medicine 04/22/20 documented as of this encounter
--- OUTSIDE RECORDS SUMMARY | 2024-04-21 15:15 | XMS_ITS | Clinical Summary ---
Author Organization [facility] Address [address] [place] [address] Care Team Providers Care Act Tutor Name Role Phone Alber Garcia MD Primary Care Provider [phone] Social History Tobacco Use Types Packs/Day Years Used Date Smoking Tobacco: Never Assessed Sex and Gender Information Value Date Recorded Sex Assigned at Not on file Gender Identity Not on file Sexual Orientation Not on file Plan of Treatment Health Maintenance Due Date Last Done Comments Hepatitis C Screen 1955 RSV Immunization ( o r 60+ Years) (1 - 1-dose 60+ series) 2013 Fall Risk Screening 2018 COVID-19 Vaccine (2022-24 season) 2023 Care Teams Act Tutor Relationship Specialty Start Date End Date Alber Garcia MD PCP - General 07/11/16
--- OUTSIDE RECORDS SUMMARY | 2024-04-21 15:15 | XMS_ITS | Encounter Summary ---
Author Organization [facility] Address [address] [place] [address] Care Team Providers Care Carton Liner Name Role Phone Alber Garcia MD Primary Care Provider [phone] Encounter Details Date Type Department Care Team (Late st Contact Info) Description 11/19/2020 Lab Requisition [facility] Pathology & Laboratory Medicine - [address] [address] Outr Resulting Lab, Provider Social History Tobacco [...] Procedure Name Priority Date/Time Associated Diagnosis Comments ZZCOVID-19 TEST [facility] PCR Today 11/19/2020 10:43 EST COVID-19 TESTING Routine 11/19/2020 10:4 3 EST documented in this encounter Results * COVID-19 TEST [facility] PCR (11/19/2020 10:43 EST) Swab ENTIRE NASOPHARYNX / Unknown 11/19/2020 10:43 EST 11/19/2020 21:00 EST Provider Outr Resulting Lab MICROBIOLOGY - GENERAL ORDERABLES [facility] [address] [place] [address] * COVID-19 TESTING (11/19/2020 10:43 EST) COVID-19 rt-PCR Result Negative Negative 11/21/2020 15:19 EST [facility] Comment: This test has not been FDA cleared or approved. This test has been authorized by FDA under an EUA for use by authorized laboratories. This test has been authorized only for detection of nucleic acid from 2019-nCoV, not for any other viruses or pathogens. This test is only authorized for the duration of the declaration that circumstances exist justifying the authorization of emergency use of in vitro diagnostic tests for detection and/or diagnosis of 2019-nCoV under section 564(b)(1) of Act, 21 U.S.C ?? 360bbb-3(b) (1), unless the authorization is terminated or revoked sooner. Negative results do not preclude 2019-nCoV infection and should not be used as the sole basis for treatment or other patient management decisions. Negative results must be combined with clinical observations, patient history, and epidemiological information. This test was developed and its performance characteristics determined by [facility]. It has not been cleared or approved by the US Food and Drug Administration. FDA does not require this test to go through premarket FDA review. This test is used for clinical purposes. It should not be regarded as investigational or for research. This laboratory is certified under the Clinical Laboratory Improvement Amendments (CLIA) as qualified to perform high complexity clinical laboratory testing. This test is based on the [facility] COVID-19 Emergency Use Authorization (EUA) assay, with minor modification as defined by the FDA Performed on the [employer] 7 Flex RT-PCR System. Performing Lab [facility] 11/21/2020 15:19 EST [facility] Swab 11/19/2020 10:4 3 EST 11/19/2020 21:00 EST Provider Outr Resulting Lab MICROBIOLOGY - GENERAL ORDERABLES [facility] [address] [place] [address] documented in this encounter Visit Diagnoses Not on filedocumented in this encounter Care Teams Carton Liner Relationship Specialty Start Date End Date Alber Garcia MD PCP - General 07/11/16 documented as of this encounter
--- OUTSIDE RECORDS SUMMARY | 2024-04-21 15:15 | XMS_ITS | Encounter Summary ---
Author Organization [facility] Address [address] [place] [address] Care Team Providers Care Office Assistant Receptionist Name Role Phone Unknown, Provider Primary Care Provider [phone] Encounter Details Date Type Department Care Team (Late st Contact Info) Description 07/07/2016 Results Only [facility] [phone] Fito Medeiros, DO [address] [place] [address] Social History Tobacco Use Types Packs/Day Years Used Date Smoking Tobacco: Never Assessed Sex and Gender Information Value Date Recorded Sex Assigned at Not on file Gender Identity Not on file Sexual Orientation Not on file documented as of this encounter Plan of Treatment Not on file documented as of this encounter Procedures Procedure Name Priority Date/Time Associated Diagnosis Comments SURGICAL PATHOLOGY Routine 07/07/2016 6:59 EDT documented in this encounter Results * SURGICAL PATHOLOGY (07/07/2016 6:59 EDT) Pathology Report: SURGICAL PATHOLOGY REPORT Reports generated via electronic interface contain original data; however they are lacking the format of the original report. Caution should be taken when reading/interpreting unformatted reports. Name: ? MARILYN JACQUES ? Accession #: ? [id number] ? : ? 1955 (Age: 61) ??M ? Collect Date: ? 07/07/2016 ? Location: ? [facility] ? Receive Date: ? 07/08/2016 ? Provider: FITO MEDEIROS DO Copy to: ANASTASIA AMIN MD ? 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 - Negative for high-grade dysplasia. Comment: This case is reviewed at intradepartmental consultation conference. Dr. Amezquita 07/11/2016 8:10 AM Document reviewed and electronically signed by: Nirali Amezquita MD Report ??Date: 07/11/2016 15:54 By the signature above, the attending physician certifies that he/she has personally conducted a gross and/or microscopic examination of the described specimens and rendered or confirmed the above diagnosis. Specimen(s) Received: Transverse colon polyp Clinical History: Colorectal Ca screen; clinical diagnosis code: ??Z12.11 Gross Description: ? Received in formalin labelled with proper patient identification (initials J, R) and transverse colon polyp is a single pink-andrade polypoid tissue (0.7 x 0.5 x 0.2 cm). The margin is inked black. The specimen is trisected and entirely submitted in block 1. NIMO Olivas (ASCP) 07/10/2016 8:16 AM End of Report [facility] 07/07/2016 6:59 EDT 07/08/2016 6:59 EDT Fito Medeiros DO PATHOLOGY ORDERABLES [facility] [address] [place] [address] documented in this encounter Visit Diagnoses Not on filedocumented in this encounter Care Teams Office Assistant Receptionist Relationship Specialty Start Date End Date Unknown, Provider, PCP - General 07/08/16 07/10/16 documented as of this encounter
--- OUTSIDE RECORDS SUMMARY | 2024-04-21 15:15 | XMS_ITS | Encounter Summary ---
Author Organization [facility] [place] [address] Care Team Providers Care Full Stack Software Engineer Name Role Phone Susannah Malhotra MD Primary Care Provider Encounter Details Date Type Department Care Team (Late st Contact Info) Description 01/31/2024 Telephone [place] [phone] Risa Garcia Social History Tobacco Use Types [...] * Telephone Encounter - Risa Garcia - 01/31/2024 4:58 PM EDT Copied from CRM #[id number]. Topic: Specialty Dept CRMs - Appointment Needed >> Jan 01, 2024 12:14 PM Marie Dietz wrote: Appt Needed Specialist Carisa Relationship (if other than patient-full name): patient Appt. Type Needed: FUV Reason for Visit: Patient would like to speak to someone in office before SHARONA from [facility] because he wants make sure he has someone that will treat him decently has he does . Please call to advise documented in this encounter Plan of Treatment Upcoming Encounters Date Type Department Care Team (Late st Contact Info) Description 05/02/2024 11:00 AM EDT Office [place] [address] Cristian Carolina Jr., MD [facility] [address] [place] [address] documented as of this encounter Visit Diagnoses Not on filedocumented in this encounter Care Teams Full Stack Software Engineer Relationship Specialty Start Date End Date Susannah Malhotra MD [address] [place] [address] PCP - General Family Medicine 04/22/20 documented as of this encounter
--- OUTSIDE RECORDS SUMMARY | 2024-04-21 15:15 | XMS_ITS | Encounter Summary ---
Author Organization [facility] [place] [address] Care Team Providers Care Whipped Topping Mixer Name Role Phone Susannah Malhotra MD Primary Care Provider [phone] Encounter Details Date Type Department Care Team (Latest Contact Info) Description 11/28/2023 Travel Social History Tobacco Use Types Packs/Day [...] 11:00 AM EDT Office [place] [address] Cristian Carolina Jr., MD [facility] [place] [address] documented as of this encounter Visit Diagnoses Not on filedocumented in this encounter Care Teams Whipped Topping Mixer Relationship Specialty Start Date End Date Susannah Malhotra MD [address] [place] [address] PCP - General Family Medicine 04/22/20 documented as of this encounter
--- OUTSIDE RECORDS SUMMARY | 2024-04-21 15:15 | XMS_ITS | Encounter Summary ---
Author Organization [facility] Address [address] [place] [address] Care Team Providers Care Clerical Assigner Name Role Phone Alber Garcia MD Primary Care Provider [phone] Encounter Details Date Type Department Care Team (Late st Contact Info) Description 02/28/2019 Results Only Imaging [facility] [phone] Unknown, Provider, Social History Tobacco Use Types Packs/Day Years Used Date Smoking Tobacco: Never Assessed Sex and Gender Information Value Date Recorded Sex Assigned at Not on file Gender Identity Not on file Sexual Orientation Not on file documented as of this encounter Plan of Treatment Pending Results Name Type Priority Associated Diagnoses Date /Time OUTSIDE IMAGES - OTHER CHEST Imaging 02/28/2019 9:20 EDT OUTSIDE IMAGES - OTHER CHEST Imaging 02/28/2019 9:20 EDT OUTSIDE IMAGES - OTHER CHEST Imaging 02/28/2019 11:03 EDT documented as of this encounter Visit Diagnoses Not on filedocumented in this encounter Care Teams Clerical Assigner Relationship Specialty Start Date End Date Alber Garcia MD PCP - General 07/11/16 documented as of this encounter
--- OUTSIDE RECORDS SUMMARY | 2024-04-21 15:15 | XMS_ITS | Encounter Summary ---
Author Organization [facility] Address [address] [place] [address] Care Team Providers Care Fixture Designer Name Role Phone Alber Garcia MD Primary Care Provider [phone] Encounter Details Date Type Department Care Team (Late st Contact Info) Description 10/04/2020 Lab Requisition [facility] Pathology & Laboratory Medicine - [address] [address] Outr Resulting Lab, Provider Social History Tobacco [...] Procedure Name Priority Date/Time Associated Diagnosis Comments LEGIONELLA ANTIGEN DETECTION, URINE Routine 10/03/2020 9:15 EST documented in this encounter Results * LEGIONELLA ANTIGEN DETECTION, URINE (10/03/2020 9:15 EST) Legionella Antigen Detection Negative Negative 10/04/2020 19:58 EST [facility] Urine URINE / Unknown 10/03/2020 9 :15 EST 10/04/2020 16:47 EST Provider Outr Resulting Lab MICROBIOLOGY - GENERAL ORDERABLES [facility] [address] [place] [address] documented in this encounter Visit Diagnoses Not on filedocumented in this encounter Care Teams Fixture Designer Relationship Specialty Start Date End Date Alber Garcia MD PCP - General 07/11/16 documented as of this encounter
--- OUTSIDE RECORDS SUMMARY | 2024-04-21 15:15 | XMS_ITS | Referral Summary ---
Author Organization [facility] Address [address] [place] [address] Care Team Providers Care Mica Machine Operator Name Role Phone Alber Garcia MD Primary Care Provider [phone] Social History Tobacco Use Types Packs/Day Years Used Date Smoking Tobacco: Never Assessed Sex and Gender Information Value Date Recorded Sex Assigned at Not on file Gender Identity Not on file Sexual Orientation Not on file Plan of Treatment Not on file Care Teams Mica Machine Operator Relationship Specialty Start Date End Date Alber Garcia MD PCP - General 07/11/16
--- OUTSIDE RECORDS SUMMARY | 2024-04-21 15:15 | XMS_ITS | Encounter Summary ---
Author Organization [facility] [place] [address] Care Team Providers Care Automotive Glass Mechanic Name Role Phone Susannah Malhotra MD Primary Care Provider [phone] Reason for Referral * Occupational Therapy (Routine) - Authorized Specialty Diagnoses / Procedures Referred By Contac t Referred To Contact Occupational Therapy Diagnoses Dupuytren contracture Navi Quintero MD [facility] [place] [address] [facility] [address] [place] [address] Referral ID Status Reason Start Date Expiration Date Visits Requested Visits Authorized [id number] Authorized Evaluate and Treat 11/28/2023 11/27/2024 12 12 Reason for Visit * Reason Comments Follow-up nxr xiafelx left sma ll finger * High Dollar Medication (Routine) - Authorized Specialty Diagnoses / Procedures Referred By Contac t Referred To Contact Orthopaedics Diagnoses Dupuytren contracture Procedures Xiaflex Authorization Request (IN CLINIC) TC COLLAGENASE CLOSTRIDIUM HISTOLYTICUM, 0.01MG, INJECTION Navi Quintero MD [facility] [place] [address] Navi Quintero MD [facility] [place] [address] Referral ID Status Reason Start Date Expiration Date Visits Requested Visits Authorized [id number] Authorized Consult, Test & Treat 06/13/2023 06/12/2024 1 99 Encounter Details Date Type Department Care Team (Late st Contact Info) Description 11/28/2023 11:00 AM EST Office [place] [address] Navi Quinteor MD [facility] [place] [address] Dupuytren contracture; Dupuytren's contracture of left small finger Social History Tobacco Use Types Packs/Day Years [...] on file documented as of this encounter Last Filed Vital Signs Vital Sign Reading Time Taken Comments Blood Pressure - - Pulse - - Temperature - - Respiratory Rate - - Oxygen Saturation - - Inhaled Oxygen Concentration - - Weight 103.4 kg (228 lb) 11/28/2023 11:00 AM EST Height 180.3 cm (5' 11) 11/28/2023 11:00 AM EST Body Mass Index 31.8 11/28/2023 11:00 AM EST documented in this encounter Progress Notes * Navi Quintero MD - 11/28/2023 11:00 AM EST Jeremiah Savage underwent Xiaflex injection for his left small finger 2 days ago. He developed axillary lymphadenopathy which has improved. His flexion and sensation remain intact. He does have somemild blistering in the palm. Today a preinjection timeout was done. Under sterile conditions I then infiltrated 10 cc of 2% lidocaine into the small finger ray. After allowing his finger to become numb I extended his small finger and ruptured his cords. He was able to fully extend the small finger and flexion remained intact. There were no skin tears. Today he has been referred to hand therapy for splint and a stretching program. He will see me in the future as needed. documented in this encounter Plan of Treatment Upcoming Encounters Date Type Department Care Team (Late st Contact Info) Description 05/02/2024 11:00 AM EDT [place] [address] Cristian Carolina Jr., MD [facility] [place] [address] Scheduled Referrals Name Type Priority Associated Diagnoses Orde r Schedule Referral to Occupational Therapy Outpatient Referral Routine Dupuytren contracture Ordered: 11/28/2023 documented as of this encounter Visit Diagnoses Diagnosis Dupuytren contracture Contracture of palmar fascia Dupuytren's contracture of left small finger Contracture of palmar fascia documented in this encounter Care Teams Automotive Glass Mechanic Relationship Specialty Start Date End Date Susannah Malhotra MD [address] [place] [address] PCP - General Family Medicine 04/22/20 documented as of this encounter
--- OUTSIDE RECORDS SUMMARY | 2024-04-21 15:15 | XMS_ITS | Encounter Summary ---
Author Organization [facility] Address [address] [place] [address] Care Team Providers Care Sales Agent Pest Control Service Name Role Phone Alber Garcia MD Primary Care Provider [phone] Encounter Details Date Type Department Care Team (Late st Contact Info) Description 06/05/2023 Lab Requisition [facility] Pathology & Laboratory Medicine - [address] [address] Outr Resulting Lab, Provider Social History Tobacco [...] Diagnosis Comments LEGIONELLA ANTIGEN DETECTION, URINE Routine 06/05/2023 11:41 EDT documented in this encounter Results * LEGIONELLA ANTIGEN DETECTION, URINE (06/05/2023 11:41 EDT) Legionella Antigen Detection Negative Negative 06/05/2023 23:00 EDT [facility] Urine URINE / Unknown 06/05/2023 1 1:41 EDT 06/05/2023 22:19 EDT Provider Outr Resulting Lab MICROBIOLOGY - GENERAL ORDERABLES [facility] [address] [place] [address] documented in this encounter Visit Diagnoses Not on filedocumented in this encounter Care Teams Sales Agent Pest Control Service Relationship Specialty Start Date End Date Alber Garcia MD PCP - General 07/11/16 documented as of this encounter
--- OUTSIDE RECORDS SUMMARY | 2024-04-21 15:15 | XMS_ITS | Encounter Summary ---
Author Organization [facility] [place] [address] Care Team Providers Care Operations Accountant Name Role Phone Susannah Malhotra MD Primary Care Provider [phone] Reason for Visit * Occupational Therapy (Routine) - Authorized Specialty Diagnoses / Procedures Referred By Cari lester Referred To Contact Occupational Therapy Diagnoses Dupuytren contracture Navi Quintero MD [facility] [place] [address] [facility] [address] [place] [address] Referral ID Status Reason Start Date Expiration Date Visits Requested Visits Authorized [id number] Authorized Evaluate and Treat 11/28/2023 11/27/2024 12 12 Encounter Details Date Type Department Care Team (Late st Contact Info) Description 11/28/2023 11:30 AM EST Office [place] [address] Adriana Beaulieu, OT Dupuytren's contracture of left small finger Social [...] as of this encounter Miscellaneous Notes * Initial Evaluation - Adriana Beaulieu, OT - 11/28/2023 11:30 AM EST OCCUPATIONAL THERAPY ORTHOTIC EVALUATION-XIAFLEX ORTHO CLINIC Referral Source: Dr. Quintero Total Treatment time: 20 Minutes Timed Code Treatment Time: 0 minutes OCCUPATIONAL PROFILE: Jeremiah Savage is a 68 y.o. year old Right hand dominant person who underwent Xiaflex injection on 11/26/23, now seen following manipulation of LEFT small finger. Jeremiah Savage is referred to Occupational Therapy for fabrication of a custom orthosis. Patient presents todayaccompanied by partner. Date of injection: 11/26/23 Date of manipulation: 11/28/23 Pertinent History and/or Co-morbidities: 1. 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 Vocational status: retired Avocational Activities: Gardening, time with partner, social activities Pain: (Assessed using the Visual Analog Pain Scale) At Rest: 11/17 With Activity: 11/17 Treatment Today: Orthosis - Hand Finger Orthotic, W/O Jts, Custom, Fit & Adj ([id number]) Educated patient in etiology and biomechanics as related to patient's symptoms Fabricated hand-based extension orthosis for digits 3-5 Instructed in orthosis wear and care: Wear splint continuously until 12/01/23, removing 3-5x.day for 10 reps to complete hook fist, and PRN for hygiene or application of ice and/or dressing changes On 12/01/23, Jeremiah Savage should wear splint solely at night and may begin use as tolerated, unless otherwise instructed. Hook fist exercises are continued, with the addition of composite fist/abduction, and PROM stretching of the contracted/effected joints. CLINICAL DECISION MAKING: Jeremiah Savage has a well fitting orthosis post therapy. Jeremiah Savage is able to independently verbalize and demonstrate the recommended home program following instructions today. Jeremiah Savage has good potential for gains with therapy/home program use. Patient knows to call with any questions or concerns. Plan for ongoing therapy is PRN Short Term Goals (to be met by end of the visit today): Date Goal Met: Today 1. Jeremiah Savage will demonstrate independence with donning and doffing of his orthosis and verbalization of purpose. Goal Status: Meets. Today 2. Jeremiah Savage will be independent with home exercises as evident with demonstration in therapy. Goal Status: Meets PLAN: follow up PRN (X) Jeremiah Savage participated in the evaluation, collaborated on treatment goals, and agrees tothe treatment plan. documented in this encounter Plan of Treatment Upcoming Encounters Date Type Department Care Team (Late st Contact Info) Description 05/02/2024 11:00 AM EDT Office [place] [address] Cristian Carolina Jr., MD [facility] [place] [address] documented as of this encounter Procedures Procedure Name Priority Date/Time Associated Diagnosis Comments OT PLAN OF CARE CERT/RE-CERT Routine 11/29/2023 9:25 AM EST Dupuytren's contracture of left small finger documented in this encounter Visit Diagnoses Diagnosis Dupuytren's contracture of left small finger Contracture of palmar fascia documented in this encounter Care Teams Operations Accountant Relationship Specialty Start Date End Date Susannah Malhotra MD [address] [place] [address] PCP - General Family Medicine 04/22/20 documented as of this encounter
--- OUTSIDE RECORDS SUMMARY | 2024-04-21 15:15 | XMS_ITS | Encounter Summary ---
Author Organization [facility] Address [address] [place] [address] Care Team Providers Care Plastics Design Engineer Name Role Phone Alber Garcia MD Primary Care Provider [phone] Encounter Details Date Type Department Care Team (Late st Contact Info) Description 05/21/2020 Lab Requisition [facility] Pathology & Laboratory Medicine - [facility] [address] [place] [address] Outr Resulting Lab, Provider Social History Tobacco [...] ORDER STANDALONE - BROAD COVID TEST Today 05/21/2020 10:18 EDT COVID-19 TESTING Routine 05/21/2020 10:1 8 EDT documented in this encounter Results * DO NOT ORDER STANDALONE - BROAD COVID TEST (05/21/2020 10:18 EDT) COVID-19 rt-PCR Result NEGATIVE Negative 05/22/2020 16:18 EDT [facility] Comment: 2019-novel Coronavirus (2019-nCoV) [...] in accordance with CLIA regulations, College [employer] (CAP) guidelines (Dec 25, 2019), and FDA guidance (Dec 06, 2019). This test is only for use under the Food and Drug Administration's Emergency Use Authorization. Swab ENTIRE NASOPHARYNX / Unknown 05/21/2020 10:18 EDT 05/21/2020 15:55 EDT Provider Outr Resulting Lab MICROBIOLOGY - GENERAL ORDERABLES [facility] [place], [place] * COVID-19 TESTING (05/21/2020 10:18 EDT) COVID-19 rt-PCR Result NEGATIVE Negative 05/22/2020 17:49 EDT [facility] Comment: 2019-novel Coronavirus (2019-nCoV) not detected [...] in accordance with CLIA regulations, College of [employer] (CAP) guidelines (Dec 25, 2019), and FDA guidance (Dec 06, 2019). This test is only for use under the Food and Drug Administration's Emergency Use Authorization. Performing Lab [facility] 05/22/2020 17:[address] [facility] Swab 05/21/2020 10:1 8 EDT 05/21/2020 15:55 EDT Provider Outr Resulting Lab MICROBIOLOGY - GENERAL ORDERABLES [facility] [address] [place], [place] [id number] [place] [address] LABORATORY [place] documented in this encounter Visit Diagnoses Not on filedocumented in this encounter Care Teams Plastics Design Engineer Relationship Specialty Start Date End Date Alber Garcia MD PCP - General 07/11/16 documented as of this encounter
--- OUTSIDE RECORDS SUMMARY | 2024-04-21 15:15 | XMS_ITS | Encounter Summary ---
Author Organization [facility] [place] [address] Care Team Providers Care Insurance Marketing Specialist Name Role Phone Susannah Malhotra MD Primary Care Provider [phone] Reason for Visit * Reason Comments Follow-up nxr xiafelx left sma ll finger * High Dollar Medication (Routine) - Authorized Specialty Diagnoses / Procedures Referred By Cari lester Referred To Contact Orthopaedics Diagnoses Dupuytren contracture Procedures Xiaflex Authorization Request (IN CLINIC) TC COLLAGENASE CLOSTRIDIUM HISTOLYTICUM, 0.01MG, INJECTION Navi Quintero MD [facility] [place] [address] Navi Quintero MD [facility] [place] [address] Referral ID Status Reason Start Date Expiration Date Visits Requested Visits Authorized [id number] Authorized Consult, Test & Treat 06/13/2023 06/12/2024 1 99 Encounter Details Date Type Department Care Team (Late st Contact Info) Description 11/26/2023 11:00 AM EST Office [place] [address] Navi Quintero MD [facility] [place] [address] Dupuytren's contracture of left small finger Social [...] - - Weight 103.4 kg (228 lb) 11/26/2023 10:05 AM EST Height 180.3 cm (5' 11) 11/26/2023 10:05 AM EST Body Mass Index 31.8 11/26/2023 10:05 AM EST documented in this encounter Progress Notes * Navi Quintero MD - 11/26/2023 11:00 AM EST Jeremiah Savage presents for Xiaflex therapy for a Dupuytren's contracture of his left small finger. He has both a pretendinous and spiral cord. I reviewed the Xiaflex procedure with him and he opted to proceed. A preinjection timeout was done. Today under sterile conditions I then injected 4 cc of 2% lidocaine into his left small finger. After allowing his finger to become numb I then injected 0.9 mg of Xiaflex into his pretendinous and spiral cords. He tolerated this well. He will return in 2 days for cord rupture. documented in this encounter Plan of Treatment Upcoming Encounters Date Type Department Care Team (Late st Contact Info) Description 05/02/2024 11:00 AM EDT Office [place] [address] Cristian Carolina Jr., MD [facility] [place] [address] documented as of this encounter Visit Diagnoses Diagnosis Dupuytren's contracture of left small finger Contracture of palmar fascia documented in this encounter Administered Medications Inactive Administered Medications - up to 3 most recent administrations Medication Order MAR Action Action Date Dose Rate Site collagenase clostridium histolyticum (Xiaflex) solution for injection 0.9 mg 0.9 mg, INTRALESIONAL, ONCE, 1 dose, On Sun11/26/23 at 1100, Routine, Is this medication being prescribed for treatment of Peyronie? s disease? No Given 11/26/2023 10:35 AM EST 0.9 mg documented in this encounter Care Teams Insurance Marketing Specialist Relationship Specialty Start Date End Date Susannah Malhotra MD [address] [place] [address] PCP - General Family Medicine 04/22/20 documented as of this encounter
--- OUTSIDE RECORDS SUMMARY | 2024-04-21 15:15 | XMS_ITS | Encounter Summary ---
Author Organization [facility] [place] [address] Care Team Providers Care Senior System Operator Name Role Phone Susannah Malhotra MD Primary Care Provider [phone] Encounter Details Date Type Department Care Team (Latest Contact Info) Description 06/13/2023 Travel Social History Tobacco Use Types Packs/Day [...] 11:00 AM EDT Office [place] [address] Cristian Carolina Jr., MD [facility] [place] [address] documented as of this encounter Visit Diagnoses Not on filedocumented in this encounter Care Teams Senior System Operator Relationship Specialty Start Date End Date Susannah Malhotra MD [address] [place] [address] PCP - General Family Medicine 04/22/20 documented as of this encounter
--- OUTSIDE RECORDS SUMMARY | 2024-04-21 15:15 | XMS_ITS | Encounter Summary ---
Author Organization [facility] Address [facility] [place] [address] Care Team Providers Care Air Quality Consultant Name Role Phone Susannah Malhotra MD Primary Care Provider [phone] Reason for Referral * High Dollar Medication (Routine) - Authorized Specialty Diagnoses / Procedures Referred By Contac t Referred To Contact Orthopaedics Diagnoses Dupuytren contracture Procedures Xiaflex Authorization Request (IN CLINIC) TC COLLAGENASE CLOSTRIDIUM HISTOLYTICUM, 0.01MG, INJECTION Elpidio Quintero MD [facility] [place] [address] Elpidio Quintero MD [facility] [place] [address] Referral ID Status Reason Start Date Expiration Date Visits Requested Visits Authorized [id number] Authorized Consult, Test & Treat 06/13/2023 06/12/2024 1 99 Reason for Visit * Reason Comments Establish Care NXR PALMAR FASCII TIS & DUPUYTREN'S BILAT PINKY FINGER DOS: 05/24/20 (SHON) NO KNOWN INJURY 2ND OPINION * Consultation (Routine) - Closed Specialty Diagnoses / Procedures Referred By Contac t Referred To Contact Orthopaedics Diagnoses Palmar fasciitis Dupuytren's contracture 2ND OPINION Rafiq Bourne MD [address] [place] [address] Elpidio Quintero MD [facility] [place] [address] Referral ID Status Reason Start Date Expiration Date V isits Requested Visits Authorized [id number] Closed Consult, Test & Treat PCP Updated and/or Approved 01/18/2023 01/18/2024 6 6 Encounter Details Date Type Department Care Team (Late st Contact Info) Description 06/13/2023 1:15 PM EDT Office [place] [address] Elpidio Quintero MD [facility] [place] [address] Dupuytren's contracture of both hands; Dupuytren contracture Social History Tobacco Use Types Packs/Day Years [...] - Inhaled Oxygen Concentration - - Weight 99.8 kg (220 lb) 06/13/2023 1:18 PM EDT Height 180.3 cm (5' 11) 06/13/2023 1:18 PM EDT Body Mass Index 30.68 06/13/2023 1:18 PM EDT documented in this encounter Progress Notes * Elpidio Quintero MD - 06/13/2023 1:15 PM EDT I examined Jeremiah Savage and I agree with Dr. Seo's note. He has a Dupuytren's contracture of his left small finger of 30 degrees at the MCP joint due to a palpable pretendinous cord. He also has a radial spiral cord and nodule over the base of the middle phalanx without contracture. We discussed the options of palmar fasciectomy versus Xiaflex therapy and he wishes to treat these with Xiaflex. I had a comprehensive discussion with him about the nature of Xiaflex therapy as well as potential risks. His questions were solicited and answered and he wishes to schedule this to be done. Consent for the procedure was obtained today. ELPIDIO QUINTERO MD * Cristian Seo MD - 06/13/2023 1:15 PM EDT Jeremiah Savage 1955 [id number] 06/13/2023 HPI: Jeremiah is 68 y.o. 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 The onset of symptoms was progressive over the past several months. Previously he underwent surgical resection of the right small finger Dupuytren's contracture over 1 year ago. He states at thattime his right small finger was contracted into his palm, with contractures of both the MCP and PIPjoint. Following this surgery, he has been able to extend the MCP joint, however he did not undergocorrection of the PIPJ. The right PIP contracture is not overly bothersome and does not get in his way. He is concerned about his left small finger contraction progressing and eventually reaching a point comparable in severity to his right. He denies any numbness or tingling in his digits, he is not having pain associated with the contracture. He is unable to place his hand flat on a tabletop. Specific treatment and/or therapy to date include Right small finger fasciectomy > 1 year ago. No related injury. Past Medical History: Diagnosis Date COPD (chronic obstructive pulmonary disease) Emphysema of lung Fractures right ankle fractureas child GERD (gastroesophageal reflux disease) Hypertension Lung disease Sleep apnea Past Surgical History: Procedure Laterality Date JOINT REPLACEMENT Right 1989 Family History Problem Relation Age of Onset Chronic Obstructive Pulmonary Disease Mother Aneurysm Mother Heart Disease Father Hypertension Father Cancer Paternal Uncle Leukemia Paternal Uncle Social History Socioeconomic History Marital status: Single Spouse name: Not on file Number of children: Not on file Years of education: Not on file Highest education level: Not on file Occupational History Not on file Tobacco Use Smoking status: Former Packs/day: 1.50 Years: 40.00 Pack years: 60.00 Types: Cigarettes Quit date: 11/17/2017 Years since quittin.5 Smokeless tobacco: Never Vaping Use Vaping Use: Never used Substance and Sexual Activity Alcohol use: Not Currently Alcohol/week: 4.0 standard drinks Types: 4 Cans of beer per week Drug use: Never Sexual activity: Not Currently Partners: Female Other Topics Concern 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, 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, Have you ever: - Been exposed to asbestos: Yes - Worked in a mine or a quarry: No - Worked in the [place]: No - Worked with automotive brakes: Yes - Worked in plumbing or heating: No - Worked with vapors, dusts, gas or fumes: Yes If yes to any then details are: Residence In what state were you born: [place] In what other states have you lived: [place] Home is approximately > 20 years old Evidence of vermin (mice / cockroaches) in the home: No Evidence of mold in the home: No Any smokers in the home: No Fuel type: propane, kitchen stove is gas - not a lot of cooking Exposures and Home Help Pets: none Any TB exposure: No Any assistance in the home: independently at home Social Determinants of Health Financial Resource Strain: Not on file Food Insecurity: Not on file Transportation Needs: Not on file Physical Activity: Not on file Housing Stability: Not on file Review of Systems General: Negative Skin: Negative Eyes: Negative Cardiac: Negative Respiratory: Negative GI: Negative : Negative Musculoskeletal: Negative other than related to the chief complaint. Neurological: Negative Meds: Current Outpatient Medications on File Prior to Visit Medication Sig Dispense Refill sildenafiL (Viagra) 100 mg tablet TAKE ONE TABLET BY MOUTH 1/2 HOUR PRIOR TO INTERCOURSE triamcinolone (Kenalog) 0.1 % Cream APPLY A SMALL AMOUNT TO AFFECTED AREA(S) ONCE DAILY Flovent HFA 220 mcg/actuation HFA Aerosol Inhaler Inhale 1 puff into the lungs 2 times daily. apixaban (Eliquis) 5 mg Tablet Take 5 mg by mouth 2 times daily. folic acid (Folvite) 1 mg Tablet Take 1 mg by mouth daily. omeprazole (PriLOSEC) 20 mg Capsule, Delayed Release(E.C.) Take 20 mg by mouth daily. albuteroL 90 mcg/actuation HFA Aerosol Inhaler Inhale 2 puffs into the lungs every 6 hours as needed. lisinopril (PRINIVIL;ZESTRIL) 5 mg Tablet Take 5 mg by mouth daily. 3 [DISCONTINUED] metFORMIN (FORTAMET) 500 mg Tablet Extended Rel 24 hr Take 1 tablet by mouth 2 timesdaily (with meals). (Patient not taking: Reported on 04/26/2023) 60 tablet 0 [DISCONTINUED] umeclidinium-vilanterol (ANORO ELLIPTA) 62.5-25 mcg/actuation Disk with Device Inhale 1 Inhalation into the lungs daily. (Patient not taking: Reported on 04/26/2023) 60 each 5 No current facility-administered medications on file prior to visit. Physical Exam: Height 180.3 cm (5' 11), weight 99.8 kg (220 lb). Patient is well-appearing, alert and oriented, accompanied by no one. Breathing is non-labored at rest. Ambulates with normal gait. Uses no cane. Appearance noted and with bilateral contractures features characteristic of Dupuytren's disease. Right hand with well-healed palmar incision over the fifth metacarpal. Small finger MCP joint without contracture. There is a boutonniere deformity of the small finger. No palpable cord. PIP joint with 90 degree flexion contracture, hyperextension of DIPJ. Left hand small finger with palpable radial pretendinous and spiral cord and nodule over base of the middle phalanx. 30 degree contracture of MCP joint. No contracture of the PIPJ. Positive tabletop test with inability to place hand flat on surface of table. No TTP along cord Motor strength 5/5 bilateral to manual resistance testing. Deep tendon reflexes 2+, symmetrical bilateral. Sensation normal bilateral to light touch at rest. no skin lesions or stasis dermatitis. Imaging: None Active Problem List: Patient Active Problem List Diagnosis Code Pulmonary embolism I26.99 Panlobular emphysema J43.1 Right upper lobe pulmonary nodule R91.1 Stage 2 moderate COPD by GOLD classification J44.9 Exercise hypoxemia R09.02 Shortness of breath R06.02 Dupuytren's contracture of both hands M72.0 Assessment: Jeremiah Savage is 68 y.o. male with Dupuytren's disease and left small finger contracture. Plan: We discussed his bilateral contractures. There is no palpable cord along the right small finger PIPJ and upon clinical examination, it appears that the middle phalanx may be subluxed palmarly relatively to the proximal phalanx. This finger is not a source of discomfort for him and does not impede him in his daily activities. For the RIGHT small finger contracture we recommended continued observation. For the LEFT small finger contracture, there is a 30 degree contracture of the MCPJ, with a palpable radial pretendinous and spiral cord. Xiaflex injection was discussed to address this, and the patient is interested in proceeding. The procedure was described in detail, including the risks and benefits associated with the procedure. Consent was obtained at this time. We will arrange for him to undergo Xiaflex injection of the LEFT small finger. Cristian Seo MD Orthopaedic Surgery - PGY3 Patient was seen in conjunction with Dr. Quintero documented in this encounter Plan of Treatment Upcoming Encounters Date Type Department Care Team (Late st Contact Info) Description 05/02/2024 11:00 AM EDT Office [place] [address] Cristian Carolina Jr., MD [facility] [place] [address] documented as of this encounter Visit Diagnoses Diagnosis Dupuytren's contracture of both hands Contracture of palmar fascia Dupuytren contracture Contracture of palmar fascia documented in this encounter Care Teams Air Quality Consultant Relationship Specialty Start Date End Date Susannah Malhotra MD [address] [place] [address] PCP - General Family Medicine 04/22/20 documented as of this encounter
--- OUTSIDE RECORDS SUMMARY | 2024-04-21 15:15 | XMS_ITS | Encounter Summary ---
Author Organization [facility] Address [address] [place] [address] Care Team Providers Care Floor Sweeper Name Role Phone Alber Garcia MD Primary Care Provider [phone] Encounter Details Date Type Department Care Team (Late st Contact Info) Description 10/04/2020 Lab Requisition [facility] Pathology & Laboratory Medicine - [address] [address] Outr Resulting Lab, Provider Social History Tobacco [...] Priority Date/Time Associated Diagnosis Comments ZZCOVID-19 TEST [facility] PCR Today 10/04/2020 8:15 EST COVID-19 TESTING Routine 10/04/2020 8:15 EST documented in this encounter Results * COVID-19 TEST [facility] PCR (10/04/2020 8:15 EST) Swab ENTIRE NASOPHARYNX / Unknown 10/04/2020 8:15 EST 10/04/2020 15:28 EST Provider Outr Resulting Lab MICROBIOLOGY - GENERAL ORDERABLES [facility] [address] [place] [address] * COVID-19 TESTING (10/04/2020 8:15 EST) COVID-19 rt-PCR Result Negative Negative 10/05/2020 0:33 EST [facility] Comment: This test has not [...] clinical observations, patient history, and epidemiological information. Performed on the Amanda Huff DBA [employer]her Fusion instrument Performing Lab [facility] 10/05/2020 0:33 EST [facility] Swab 10/04/2020 8:15 EST 10/04/2020 15:28 EST Provider Outr Resulting Lab MICROBIOLOGY - GENERAL ORDERABLES [facility] [address] [place] [address] documented in this encounter Visit Diagnoses Not on filedocumented in this encounter Care Teams Floor Sweeper Relationship Specialty Start Date End Date Alber Garcia MD PCP - General 07/11/16 documented as of this encounter
--- OUTSIDE RECORDS SUMMARY | 2024-04-21 15:16 | XMS_ITS | Encounter Summary ---
Author Organization [facility] [place] [address] Care Team Providers Care Fuel Agent Name Role Phone Susannah Malhotra MD Primary Care Provider [phone] Encounter Details Date Type Department Care Team (Late st Contact Info) Description 12/28/2021 9:05 PM EDT Ancillary Procedure [place] [address] Russel Younger MD [facility] [place] [address] Social History Tobacco Use Types Packs/Day Years Used Date Smoking Tobacco: Former Cigarettes 1.5 40 0 11/17/1977 - 11/17/2017 Smokeless Tobacco: Never Sex and Gender Information Value Date Recorded Sex Assigned at Not on file Gender Identity Not on file Sexual Orientation Not on file documented as of this encounter Plan of Treatment Upcoming Encounters Date Type Department Care Team (Late st Contact Info) Description 05/02/2024 11:00 AM EDT Office [place] [id number] Cristian Carolina Jr., MD [facility] [place] [address] documented as of this encounter Procedures Procedure Name Priority Date/Time Associated Diagnosis Comments FILM LIBRARY STORAGE ONLY CT CHEST Routine 12/28/2021 9:02 PM EDT documented in this encounter Results * Film Library- Storage Only CT Chest (12/28/2021 9:02 PM EDT) Narrative AMILCAR - 12/28/2021 9:02 PM EDT This exam is auto-finalizing. It's purpose is for storage only. Russel Younger MD IMG FILM LIBRARY ORD ERABLES Performing Organization Address City/State/[facility] Co de Phone Number [place], [place] documented in this encounter Visit Diagnoses Not on filedocumented in this encounter Care Teams Fuel Agent Relationship Specialty Start Date End Date Susannah Malhotra MD [address] [place] [address] PCP - General Family Medicine 04/22/20 documented as of this encounter
--- OUTSIDE RECORDS SUMMARY | 2024-04-21 15:16 | XMS_ITS | Encounter Summary ---
[place] [address] Care Team Providers Care Portfolio Administrator Name Role Phone Susannah Perez MD Primary Care Provider [phone] Reason for Visit * Reason Comments Shortness of Breath * Auth/Cert Specialty Diagnoses / Procedures Referred By Contac t Referred To Contact Diagnoses Shortness of breath [place] [address] [facility] Referral ID Status Reason Start Date Expiration Date Visits Re quested Visits Authorized [id number] 1 1 Encounter Details Date Type Department Care Team (Late st Contact Info) Description 04/09/2022 8:33 AM EDT - 2022 4:24 PM EDT Hospital Encounter 1 [place] [id number] Juan Campbell DO [facility] [place] [address] [place] [address] Christina Victor MD [facility] [place] [address] Shortness of breath (Primary Dx) Discharge Disposition: Home Social History Tobacco Use Types Packs/Day Years [...] Sign Reading Time Taken Comments Blood Pressure 120/83 2022 6:03 AM EDT Pulse 84 04/10/2022 4:00 AM EDT Temperature 36.6 ??C (97.9 ??F) 2022 6:03 AM ED T Respiratory Rate 18 2022 6:03 AM EDT Oxygen Saturation 93% 2022 6:03 AM EDT Inhaled Oxygen Concentration - - Weight 102.9 kg (226 lb 14.4 oz) 04/13/2022 5:18 AM EDT Height 180.3 cm (5' 11) 04/09/2022 5:36 PM EDT Body Mass Index 31.65 04/09/2022 5:36 PM EDT documented in this encounter Discharge Summaries * Fadi Chambers MD - 2022 12:00 PM EDT Discharge Summary Patient Name: Jeremiah Savage Patient Age: 67 y.o. Admit date: 04/09/2022 Discharge date and time: 2022 Attending Physician: Christina Victor MD Discharge Physician: Fadi Chambers MD PCP: Susannah Perez MD ID: [id number] y.o. M; Gold II COPD with emphysema (not on home O2 per recent pulm notes); prior L pneumothorax due to ruptured bleb in 2019 treated with chest tube; hx PE in 2019 (on apixaban), known RUL nodule, and hypertension here pneumonia and mild COPD exacerbation. Recommendations for Providers: Follow-ups/Management recommendations: #Pneumonia: Continuing Levaquin and doxycycline for 14 day course per Pulmonology recs, end date 04/22/22. #T2DM: A1C 6.0%. Started on metformin 500mg BID. PCP follow-up 04/28/22. History of Presentation (per 04/09/2022 Admission H&P): Mr. Savage was in his usual state of health yesterday, out for [employer] with friends to celebrate his birthday. He returned to his apartment for the evening and overnight awoke shivering, feeling cold and sweaty. He describes his shivers as severe and violent, causing pain in his muscles. Hedenies any known sick contacts or recent travel. He denies any nasal congestion, headaches, nausea,or vomiting. He does report an episode of diarrhea this morning. Mr. Savage endorses a productive cough, shortness of breath, and difficulty catching his breath. He does not report any pain with inhalation. The patient endorses an episode of dark bloody sputum this morning. ?? This morning, he felt as though he could not catch his breath and the cough was causing him pain inthe lower left back, so he called EMS. ?? When EMS arrived, EMS noted Temp 39C +SpO2 in 70s% on their arrival, they started 3L/min O2 via LFNC. ?? Mr. Savage is followed by Dr. Russel Younger in the outpatient setting, last seen on 03/28/2022. ?? ED Course: Temp Afebrile, HR initially 140s --> subsequently 110s, BP 110s/70s, RR 20s-30s, SpO2 93% on 3L/min --> placed on 6L/min O2 LFNC --> subsequently decreased back to 3L/min after treatments (see below). Labs: CBC with Leukocytosis to 12.2; BMP wnl; VBG with normal pH, PCO2 40, lactate 3.2; troponin undectable; Blood cultures were drawn (after ceftriaxone was given). Imaging: CXR with evidence of small R-sided apical pneumothorax and chronic emphysema (no mention of pneumonia in report) Treatments/Interventions: Got 3 duobenbs and ceftriaxone. After receiving ceftriaxone, given concern for sepsis criteria he was given Vancomycin and, Zosyn, Methylprenisolone 125mg IV. Per ED provider, he clinically appeared improved/more comfortable after receiving these treatments He also had a CT scan without contrast which showed there is no pneumothorax. Extensive centrilobular emphysematous changes are demonstrated. Left-sided airspace disease and increased interstitial markings are noted particularly at the left base. This is new compared with prior chest CT and may represent infectious etiology. There is no adenopathy identified at this time. Hospital Course: Jeremiah Savage was admitted to the Hospital Medicine Service on 04/09/2022. The following issues wereaddressed and he was discharged on 2022. #Pneumonia, resolving #Mild COPD exacerbation #GOLD II COPD with Emphysema Patient arrived to the ED meeting sepsis criteria which improved after initial management. 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 Infectious work-up was rigoberto ko unremarkable. Patient continued supportive management and pulm toilet. Patient continued IV Zosyn for total of 5 days and later transitioned to p.o. Levaquin to finish a total antibiotic course of 14 days per pulmonology recommendations. In addition, patient continued p.o. Doxy to complete a course of 14 days. End date for both antibiotics on 04/22. #Hemoptysis? #Hx of PE 2019 #Chronic DVT right leg Patient did report some hemoptysis on admission likely secondary to??persistent cough from infx/mild copd exacerbation in setting of AC. He has a history of PE and is on apixaban. ??He did note that occasionally he skipped a dose of apixaban, but thinks he has not missed a dose in the past few days. ??His EKG does have an S1Q3T3 which was also present on his EKG in 2019 during his acute PE. ??Unclear if this conduction change has resolved in the interim given lack of EKG during the interval. However, he was normotensive, without signs or symptoms of right heart failure, and troponin was negative. ??We continued his apixaban, checked an apixaban level, and continued to monitor. ??We held on CTA. ? #T2DM Given his obesity, we added on a hemoglobin A1c which returned elevated at 6.0. ??We started metformin 500mg BID. Discharge Diagnoses (Hospital Problems) and Secondary Diagnoses (Chronic Problems): Active Hospital Problems Diagnosis ??? Shortness of breath Resolved Hospital Problems No resolved problems to display. Active Non-Hospital Problems Diagnosis ??? Stage 2 moderate COPD by GOLD classification ??? Exercise hypoxemia ??? Panlobular emphysema ??? Right upper lobe pulmonary nodule ??? Pulmonary embolism Procedures: Operations: * No surgery found * Important Studies and Lab Data: Recent Labs 04/14/22 0504/13/22 0357 04/12/22 0611 WBC 12.1* 11.1* 14.5* HGB 13.1* 12.3* 12.5* HCT 39.0* 37.5* 38.0* PLATELET 284 263 264 Recent Labs 04/14/22 0514 04/13/22 0357 04/12/22 0611 04/11/22 0605 04/10/22 0509 NA 137 137 133* < > 138 K 4.4 4.4 4.6 < > 4.7 CL 102 102 100 < > 106 CO2 23 28 24 < > 23 BUN 22* 18 17 < > 15 CREATININE 1.00 1.07 1.00 < > 0.93 MAGNESIUM -- -- -- -- 0.80 PHOS 4.1 4.1 3.9 < > 1.1* < > = values in this interval not displayed. Recent Labs 04/09/22 0855 BILITOT 0.5 AST 25 ALT 30 ALKPHOS 59 No results for input(s): INR, PTT in the last 168 hours. Recent Labs 04/09/22 0855 HA1C 6.0* No results for input(s): TSH in the last 168 hours. No results for input(s): HDL, LDLCHOL, CHOLHDL, TRIG, CHLPL in the last 168 hours. Microbiology Results (Last 30 days) Procedure Component Value Units Date/Time Lower Respiratory Culture Sputum Expectorated [[id number]] Collected: 04/09/22 1902 Lab Status: Final result Specimen: Sputum Expectorated Updated: 04/11/22 1144 Lower Respiratory Culture -- Moderate mixed bacterial morphotypes suggestive of normal upper respiratory do Gram Stain -- Few squamous epithelial cells seen Few Neutrophils seen Rare mixed bacterial morphotypes suggestive of normal upper respiratory do seen Legionella Urinary Antigen [[id number]] Collected: 04/09/22 1510 Lab Status: Final result Specimen: Urine Updated: 04/09/22 1656 Legionella Urinary Antigen Negative Comment: A negative Legionella Urinary Antigen by EIA suggests no recent or current infection with L. pneumophila Serogroup 1. Antigen may not be present in urine in early infection, and the level of antigen present in the urine may be below the detection limit of the test. Sensitivity: 95% Specificity 95%. Respiratory Panel PCR [[id number]] Collected: 04/09/22 1323 Lab Status: Final result Specimen: Nasopharyngeal Swab Updated: 04/09/22 1535 Resp Panel Source VISUAL MERCHANDISING ASSISTANT Swab Resp Panel PCR Negative Comment: Respiratory Panels are performed on the [employer], using multiplexed PCR nucleic acid detection. Negative results do not preclude respiratory infection and should not be used as the sole basis for diagnosis, treatment or other management decisions. Adenovirus Not Detected Coronavirus HKU1 Not Detected Coronavirus NL63 Not Detected Coronavirus 229E Not Detected Coronavirus OC43 Not Detected SARS-CoV-2 Not Detected Comment: Testing for SARS-CoV-2 (Severe acute respiratory syndrome coronavirus 2) to aid in the diagnosis of COVID-19 is performed using the [employer] Respiratory Panel 2.1 ([employer]) as authorized by the FDA issued Emergency Use Authorization (EUA). This panel also tests for multiple other viral and bacterial pathogens. This assay is intended for In-vitro Diagnostic (IVD) use with nasopharyngeal swabs in viral transport media. The assay is performed based on the instructions for use and additional guidance provided by the FDA. Testing is performed in laboratories within the [facility], each of which is certified under the Clinical Laboratory Improvement Amendments of 1988 (CLIA), 42 U.S.C. section 263a, to perform high-complexity tests. Assay performance has been verified according to clinical laboratory regulatory requirements. The test result for SARS-CoV-2 provided above should be interpreted in combination with the clinical observation, patient history and epidemiological information. For testing of asymptomatic individuals, assay performance characteristics and clinical utility have not been evaluated. A result of Not Detected indicates that the viral RNA target is not present but does not preclude SARS-CoV-2 infection. False negative results may occur if a specimen is improperly collected, transported or handled; if amplification inhibitors are present; or if inadequate numbers of viral particles are present in the specimen. When a diagnostic test is negative, the possibility of a false negative result should be considered in the context of a patient's recent exposures and the presence of clinical signs and symptoms consistent with COVID-19. A result of Detected suggests a current or recent infection. Positive and negative predictive values for this test are dependent on disease prevalence. A result of Invalid indicates the inability to conclusively determine the presence or absence of SARS-CoV-2 RNA in the sample which can be due to a variety of factors. Collection of a new sample for repeat testing is recommended in the case of an invalid result. CDC COVID-19 criteria for testing on human specimens and clinical management guidance information are available at the CDC Coronavirus Disease 2019 (COVID-19) webpage under Information for Healthcare Professionals (https://www.cdc.gov/coronavirus/2019-ncov/hcp/index.html). Additional information about this and other EUA tests can be found in provider and patient fact sheets at the following FDA website: https://www.fda.gov/medical-devices/ugyuuhwbyrr-ahrtffb-2884-ychtr-80-mhxnacgeo- nmb-omltrwtytdfwvl-flpyhff-devices/xfjih-felqkvsdgyi-qpxy Human Metapneumovirus Not Detected Human Rhino/Enterovirus Not Detected Influenza A Not Detected Influenza B Not Detected Parainfluenza 1 Not Detected Parainfluenza 2 Not Detected Parainfluenza 3 Not Detected Parainfluenza 4 Not Detected Respiratory Syncytial Virus Not Detected Chlamydophila pneumoniae Not Detected Mycoplasma pneumoniae Not Detected Respiratory Panel PCR [[id number]] Lab Status: No result Specimen: Nasopharyngeal Swab MRSA PCR [[id number]] Lab Status: No result Specimen: Nasopharyngeal Swab Blood culture [[id number]] Collected: 04/09/22 0950 Lab Status: Preliminary result Specimen: Blood Updated: 04/13/22 1502 Blood Culture No growth at 4 days. Blood culture [[id number]] Collected: 04/09/22 0925 Lab Status: Preliminary result Specimen: Blood Updated: 04/13/22 1502 Blood Culture No growth at 4 days. COVID-19 PCR [[id number]] Collected: 04/09/22 0925 Lab Status: Final result Specimen: Tracheal Aspirate Updated: 04/09/22 1746 SARS-CoV-2 RNA Not Detected Comment: This result should be interpreted in combination with the clinical observations, patient history and epidemiological information in making a final diagnosis. For testing of asymptomatic individuals, assay performance characteristics and clinical utility have not been evaluated. Testing for SARS-CoV-2 (Severe acute respiratory syndrome coronavirus 2, formerly known as 2019 novel coronavirus or 2019-nCoV) to aid in the diagnosis of COVID-19 is performed using the [employer] SARS-CoV-2 Assay as authorized by the FDA Emergency Use Authorization (EUA). This EUA assay is intended for In-vitro Diagnostic (IVD) use with respiratory specimens such as nasopharyngeal swabs collected from individuals during the acute phase of infection. This assay is performed based on the instructions for use provided by [employer] and additional guidance provided by CDC and FDA. Testing is performed in the [facility] within the Department of Pathology and Laboratory Medicine at [facility], certified under the Clinical Laboratory Improvement Amendments of 1988 (CLIA), 42 U.S.C. 263a, to perform high complexity tests. Assay performance has been verified according to clinical laboratory regulatory requirements for use with specimens collected from individuals suspected of COVID-19. Test results are provided above. A result of Not Detected indicates that the viral RNA target is not present above the limit of detection, but does not preclude SARS-CoV-2 infection. False negative results may occur if a specimen is improperly collected, transported or handled; if amplification inhibitors are present; or if inadequate numbers of viral particles are present in the specimen. When a diagnostic test is negative, the possibility of a false negative result should be considered in the context of a patient's recent exposures and the presence of clinical signs and symptoms consistent with COVID-19. A result of Detected indicates that RNA from SARS-CoV-2 was detected and the patient is infected. As required or requested by public health authorities, positive specimens may be sent for additional testing. Positive and negative predictive values for this test are highly dependent on disease prevalence. A result of Invalid indicates that neither the viral RNA targets nor the internal control target was detected. An invalid result suggests the presence of inhibitors. Recollection and re-testing is recommended in the case of an invalid result. CDC COVID-19 criteria for testing on human specimens and clinical management guidance information are available at the CDC Coronavirus Disease 2019 (COVID-19) webpage under Information for Healthcare Professionals (https://www.cdc.gov/coronavirus/2019-ncov/hcp/index.html) Additional information about this and other EUA tests can be found in provider and patient fact sheets at the following FDA website: https://www.fda.gov/medical-devices/iawazyjcway-rmtrbbg-2054-paxvj-36-butfpennk- vxo-shvudsgfwjtoeb-anwgcux-devices/qdogu-hzmudscjpnp-dlbh SARS-Cov-2 RNA Source Trach Asp Imaging/Diagnostics: Results for orders placed or performed during the hospital encounter of 04/09/22 XR Chest One View (Exam End: 04/09/2022 9:35 AM) Impression Small left apical pneumothorax, estimated to be up to 15%. No midline shift. Left base airspace disease. Thank you for letting us participate in the care of this patient. If you are a health care provider and have any questions regarding this report, please contact the number below. For patients who have questions please contact the health personal care assistant that requested your imaging first. Chest wo Contrast (Generic) (Exam End: 04/09/2022 12:43 PM) Impression There is no pneumothorax. Extensive centrilobular emphysematous changes are demonstrated. Left-sided airspace disease and increased interstitial markings are noted particularly at the left base. This is new compared with prior chest CT and may represent infectious etiology. There is no adenopathy identified at this time. Thank you for letting us participate in the care of this patient. If you are a health care provider and have any questions regarding this report, please contact the number below. For patients who have questions please contact the health personal care assistant that requested your imaging first. Discharge Conditions/Prognosis: Upon discharge the patientis hemodynamically stable, afebrile, fully ambulatory with requiring supplemental oxygen (patient has at home), holding down food/drink, and pain free controlled with stable oral regimen. Discharge to: home Discharge Medications: Your Medications New Medications Dose Details doxycycline monohydrate 100 mg Cap Commonly known as: Monodox Take 1 capsule by mouth 2 times daily for 8 days. 100 mg Quantity: 16 capsule Refills: 0 levoFLOXacin 750 mg Tab Commonly known as: Levaquin Take 1 tablet by mouth every morning for 7 days. Start taking on: April 15, 2022 750 mg Quantity: 7 tablet Refills: 0 metFORMIN 500 mg Tr24 Commonly known as: FORTAMET Take 1 tablet by mouth 2 times daily (with meals). 500 mg Quantity: 60 tablet Refills: 0 Continued medications, unchanged Dose Details albuteroL 90 mcg/actuation Hfaa Inhale 2 puffs into the lungs every 6 hours as needed. 2 puff Refills: 0 apixaban 5 mg Tab Commonly known as: Eliquis Take 5 mg by mouth 2 times daily. 5 mg Refills: 0 Flovent HFA 220 mcg/actuation Hfaa Inhale 1 puff into the lungs 2 times daily. Generic drug: fluticasone propionate 1 puff Refills: 0 folic acid 1 mg Tab Commonly known as: Folvite Take 1 mg by mouth daily. 1 mg Refills: 0 lisinopriL 5 mg Tab Commonly known as: Zestril Take 5 mg by mouth daily. 5 mg Refills: 3 omeprazole 20 mg Cpdr Commonly known as: PriLOSEC Take 20 mg by mouth daily. 20 mg Refills: 0 umeclidinium-vilanteroL 62.5-25 mcg/actuation Dsdv Commonly known as: Anoro Ellipta Inhale 1 Inhalation into the lungs daily. 1 Inhalation Quantity: 60 each Refills: 5 STOPPED Medications amoxicillin-clavulanate 875-125 mg Tab Commonly known as: Augmentin ibuprofen 200 mg Tab Commonly known as: Advil predniSONE 10 mg Tab Commonly known as: Deltasone Instructions Given to Patient at Discharge: Patient Instructions Instructions on Discharge to Home Why you were hospitalized - for presumed pneumonia complicated by mild COPD exacerbation. Call your doctor or seek medical attention if you develop the following - chest pain, shortness of breath, fever, cough, weakness in an arm or leg Activity level - no restrictions Diet - no change in previous diet Driving - as before hospitalization Shower/Bath - permitted Wound Care - none Home Oxygen therapy - as needed Changes in Your Medications: New Medications: -You were started on 2 antibiotics which she will take until the last day of 04/22/2022 -You were started on metformin for your diabetes. You have PCP follow-up 04/28/22. Your Medications New Medications Dose Details doxycycline monohydrate 100 mg Cap Commonly known as: Monodox Take 1 capsule by mouth 2 times daily for 8 days. 100 mg Quantity: 16 capsule Refills: 0 levoFLOXacin 750 mg Tab Commonly known as: Levaquin Take 1 tablet by mouth every morning for 7 days. Start taking on: April 15, 2022 750 mg Quantity: 7 tablet Refills: 0 Continued medications, unchanged Dose Details albuteroL 90 mcg/actuation Hfaa Inhale 2 puffs into the lungs every 6 hours as needed. 2 puff Refills: 0 apixaban 5 mg Tab Commonly known as: Eliquis Take 5 mg by mouth 2 times daily. 5 mg Refills: 0 Flovent HFA 220 mcg/actuation Hfaa Inhale 1 puff into the lungs 2 times daily. Generic drug: fluticasone propionate 1 puff Refills: 0 folic acid 1 mg Tab Commonly known as: Folvite Take 1 mg by mouth daily. 1 mg Refills: 0 lisinopriL 5 mg Tab Commonly known as: Zestril Take 5 mg by mouth daily. 5 mg Refills: 3 omeprazole 20 mg Cpdr Commonly known as: PriLOSEC Take 20 mg by mouth daily. 20 mg Refills: 0 umeclidinium-vilanteroL 62.5-25 mcg/actuation Dsdv Commonly known as: Anoro Ellipta Inhale 1 Inhalation into the lungs daily. 1 Inhalation Quantity: 60 each Refills: 5 STOPPED Medications amoxicillin-clavulanate 875-125 mg Tab Commonly known as: Augmentin ibuprofen 200 mg Tab Commonly known as: Advil predniSONE 10 mg Tab Commonly known as: Deltasone Your Inpatient Doctor: MD Attila Paris MD Girish Pathangey, MD Your Primary Care Provider: Susannah Perez MD [phone] For questions regarding this document or issues relating to this hospitalization on the Medical Service, please contact your inpatient physician through the [facility] Art Handler . Issues afterhours and on weekends will be handled by the Hospitalist staff on-call. General Instructions YOU ARE SCHEDULED FOR A FOLLOW UP APPOINTMENT WITH YOUR PRIMARY CARE PROVIDER, DR SUSANNAH PEREZ, ON 04/28/2022 AT 11:20AM, AT THE OFFICE IN [facility], AT [address] [place] [address] Inpatient Provider Contact Information: Fadi Chambers MD PGY-1 Internal Medicine [facility] Discharge References/Attachments: Discharge References/Attachments None documented in this encounter Discharge Instructions * Discharge Instructions* Ally Suarez CMA - 2022 9:37 AM EDT YOU ARE SCHEDULED FOR A FOLLOW UP APPOINTMENT WITH YOUR PRIMARY CARE PROVIDER, DR SUSANNAH PEREZ, ON 04/28/2022 AT 11:20AM, AT THE OFFICE IN [facility] AT [address] [place] [address] * Patient Instructions* Fadi Chambers MD - 2022 8:41 AM EDT Instructions on Discharge to Home Why you were hospitalized - for presumed pneumonia complicated by mild COPD exacerbation. Call your doctor or seek medical attention if you develop the following - chest pain, shortness of breath, fever, cough, weakness in an arm or leg Activity level - no restrictions Diet - no change in previous diet Driving - as before hospitalization Shower/Bath - permitted Wound Care - none Home Oxygen therapy - as needed Changes in Your Medications: New Medications: -You were started on 2 antibiotics which she will take until the last day of 04/22/2022 -You were started on metformin for your diabetes. You have PCP follow-up 04/28/22. Your Medications New Medications Dose Details doxycycline monohydrate 100 mg Cap Commonly known as: Monodox Take 1 capsule by mouth 2 times daily for 8 days. 100 mg Quantity: 16 capsule Refills: 0 levoFLOXacin 750 mg Tab Commonly known as: Levaquin Take 1 tablet by mouth every morning for 7 days. Start taking on: April 15, 2022 750 mg Quantity: 7 tablet Refills: 0 Continued medications, unchanged Dose Details albuteroL 90 mcg/actuation Hfaa Inhale 2 puffs into the lungs every 6 hours as needed. 2 puff Refills: 0 apixaban 5 mg Tab Commonly known as: Eliquis Take 5 mg by mouth 2 times daily. 5 mg Refills: 0 Flovent HFA 220 mcg/actuation Hfaa Inhale 1 puff into the lungs 2 times daily. Generic drug: fluticasone propionate 1 puff Refills: 0 folic acid 1 mg Tab Commonly known as: Folvite Take 1 mg by mouth daily. 1 mg Refills: 0 lisinopriL 5 mg Tab Commonly known as: Zestril Take 5 mg by mouth daily. 5 mg Refills: 3 omeprazole 20 mg Cpdr Commonly known as: PriLOSEC Take 20 mg by mouth daily. 20 mg Refills: 0 umeclidinium-vilanteroL 62.5-25 mcg/actuation Dsdv Commonly known as: Anoro Ellipta Inhale 1 Inhalation into the lungs daily. 1 Inhalation Quantity: 60 each Refills: 5 STOPPED Medications amoxicillin-clavulanate 875-125 mg Tab Commonly known as: Augmentin ibuprofen 200 mg Tab Commonly known as: Advil predniSONE 10 mg Tab Commonly known as: Deltasone Your Inpatient Doctor: MD Attila Paris MD Girish Pathangey, MD Your Primary Care Provider: Susannah Perez MD [phone] For questions regarding this document or issues relating to this hospitalization on the Medical Service, please contact your inpatient physician through the [facility] . Issues afterhours and on weekends will be handled by the Hospitalist staff on-call. documented in this encounter Medications at Time of Discharge Medication Sig Dispensed Refills Start Date End Date Flovent HFA 220 mcg/actuation HFA Aerosol Inhaler Inhale 1 puff into the lungs 2 times daily. 01/16/2022 apixaban (Eliquis) 5 mg Tablet Take 5 mg by mouth 2 times daily. folic acid (Folvite) 1 mg Tablet Take 1 mg by mouth daily. 11/27/2020 omeprazole (PriLOSEC) 20 mg Capsule, Delayed Release(E.C.) Take 20 mg by mouth daily. 03/09/2021 albuteroL 90 mcg/actuation HFA Aerosol Inhaler Inhale 2 puffs into the lungs every 6 hours as needed. 10/05/2020 lisinopril (PRINIVIL;ZESTRIL) 5 mg Tablet Take 5 mg by mouth daily. 3 06/26/2018 doxycycline monohydrate (Monodox) 100 mg Capsule Take 1 capsule by mouth 2 times daily for 8 days. 16 capsule 2022 04/22/2022 levoFLOXacin (Levaquin) 750 mg Tablet Take 1 tablet by mouth every morning for 7 days. 7 tablet 04/15/2022 04/22/2022 metFORMIN (FORTAMET) 500 mg Tablet Extended Rel 24 hr Take 1 tablet by mouth 2 times daily (with meals). 60 tablet 2022 06/13/2023 umeclidinium-vilantero l (ANORO ELLIPTA) 62.5-25 mcg/actuation Disk with DeviceIndications:Senior Contracts Manager ben obstructive pulmonary disease, unspecified COPD type Inhale 1 Inhalation into the lungs daily. 60 each 5 01/07/2019 06/13/2023 documented as of this encounter Progress Notes * Christina Victor MD - 2022 12:57 PM EDT Hospital Medicine - Attending Day of Discharge Documentation Discharge diagnosis Active Hospital Problems Diagnosis ??? Shortness of breath Resolved Hospital Problems No resolved problems to display. Secondary Issues Active Non-Hospital Problems Diagnosis ??? Stage 2 moderate COPD by GOLD classification ??? Exercise hypoxemia ??? Panlobular emphysema ??? Right upper lobe pulmonary nodule ??? Pulmonary embolism I have personally seen and examined the patient and they are ready for discharge. I spent >30 minutes (Day of Discharge Code 24497) involved in the final examination of the patient, discussion of the hospital stay, instructions for continuing care to all relevant caregivers, and preparation of discharge records, prescriptions and referral forms. Plans ? Discharge to home with 02 ? Follow-up scheduled with PCP ? Please see the Discharge Summary for complete details of any medication changes and additional plans. * Yumi Byrd MD - 04/13/2022 6:00 AM EDT Inpatient Medicine Progress Note Hospital Day 4 days Active Hospital Problems Diagnosis ??? Shortness of breath Resolved Hospital Problems No resolved problems to display. ID: 66-year-old male with history of COPD and emphysematous disease, prior left pneumothorax treated with chest tube, and DVT/PE on apixaban here with acute onset dyspnea and rigors, found to have left-sided pneumonia and sepsis now clinically stable and improving from COPD exacerbation. 24 Hour Events: -JOMAR, VSS ROS: Denies fevers/chills, chest pain, shortness of breath, diarrhea/vomiting/abdominal pain/constipation, muscle aches or weakness. 4 Inpatient Medications: Scheduled Meds: ??? apixaban 5 mg Oral BID ??? sodium chloride 0.9 % (flush) 5 mL Intravenous BID ??? senna-docusate 2 tablet Oral Nightly ??? piperacillin-tazobactam 3.375 g Intravenous Q8H ??? doxycycline monohydrate 100 mg Oral BID ??? ipratropium-albuteroL 3 mL Nebulization Q6H ??? predniSONE 40 mg Oral Daily PRN Meds: polyethylene glycoL (MIRALAX) oral powder, senna-docusate, acetaminophen, sodium chloride 0.9 % (flush), lidocaine, melatonin, albuteroL Vitals: Last value Range last 24 hrs Temperature Temp: 36.3 ??C (97.3 ??F) Temp: [36.3 ??C (97.3 ??F)-36.8 ??C (98.2 ??F)] Heart Rate Heart Rate: 84 Heart Rate: -- Blood Pressure BP: 128/75 BP: (103-138)/(75-95) Respiratory Rate Resp: 24 Resp: [20-24] SpO2 SpO2: 96 % SpO2: [92 %-96 %] Patient Vitals for the past 168 hrs: Weight 04/13/22 0518 102.9 kg (226 lb 14.4 oz) 04/12/22 1638 103.2 kg (227 lb 8 oz) 04/11/22 0534 103.7 kg (228 lb 9.6 oz) Ins/Outs: Intake/Output Summary (Last 24 hours) at 04/13/2022 0825 Last data filed at 04/13/2022 0518 Gross per 24 hour Intake 240 ml Output 1350 ml Net -1110 ml Physical Exam: Gen: NAD, A&Ox3, breathing comfortably on RA HEENT: PERRLA, EOMI, sclera anicteric, OP clear, MMM Neck: Supple with fROM, no appreciable LAD, no bruits, no thyromegaly CVS: RRR with normal S1/S2, no appreciable m/r/g; JVD to ~7cm, peripheral pulses full and equal Pulm: CTA b/l, breathing non-labored with good air movement, no crackles/rhonchi or wheeze Abd: NABS, soft, NT, ND, no abnormal masses or pulsations Ext: WWP, no edema, no clubbing, no cyanosis. Chest/Back: no spinal tenderness, no CVAT Skin: Intact with no rashes, petechiae, or ecchymoses Laboratory: CBC: Recent Labs 04/13/22 03504/12/22 0611 04/11/22 0605 WBC 11.1* 14.5* 17.0* HGB 12.3* 12.5* 12.6* PLATELET 263 264 264 Chemistry: Recent Labs 04/13/22 03504/12/22 0611 04/11/22 0605 NA 137 133* 141 K 4.4 4.6 4.2 CL 102 100 105 CO2 28 24 26 BUN 18 17 15 CREATININE 1.07 1.00 0.95 GLUCOSE 153 107 128 Recent Labs 04/13/22 0357 04/12/22 0611 04/11/22 0605 04/10/22 0509 CALCIUM 8.5 8.8 8.8 9.2 MAGNESIUM -- -- -- 0.80 PHOS 4.1 3.9 3.3 1.1* LFT's: Recent Labs 04/09/22 0855 BILITOT 0.5 ALBUMIN 4.3 ALKPHOS 59 ALT 30 AST 25 Coags: No results for input(s): PT, INR, PTT, FIBRINOGEN, DDIMER in the last 168 hours. Invalid input(s): THROMBIN TIME Cardiac enzymes: Recent Labs 04/09/22 0855 TROPONINT <0.01 PROBNP 60 Endocrine: No results for input(s): TSH, CORTISOL in the last 7068 hours. Invalid input(s): [id number] Heme: No results for input(s): LDH, HAPTOGLOBIN, URICACID in the last 168 hours. Microbiology: No new results today. Imaging: No new imaging today Assessment: 66-year-old male with history of COPD and emphysematous disease, prior left pneumothorax treated with chest tube, and DVT/PE on apixaban here with acute onset dyspnea and rigors, found to have left-sided pneumonia and sepsis Patient generally clinically stable and subjectively improved after initial treatments in the emergency department. Meets sepsis criteria for heart rate and respiratory rate. 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 We will check sputum culture and respiratory pathogen panel. Given some GI distress earlier this morning, will also check urinary Legionella. Given severe structural lung disease, will continueZosyn and add doxycycline due to history of COPD and for atypical coverage. We will continue steroids, scheduled duo nebs, incentive spirometry, and flutter. Pulmonology is aware of the patient's admission. Patient does report some hemoptysis. He has a history of PE and is on apixaban. He does note that occasionally he skips a dose of apixaban here and there, but thinks he has not missed a dose in the past few days. His EKG does have an S1Q3T3 which was also present on his EKG in 2019 during his acutePE. Unclear if this conduction change has resolved in the interim given lack of EKG during the interval. However, he is normotensive, without signs or symptoms of right heart failure, and troponin isnegative. We will continue his apixaban, check an apixaban level, and continue to monitor. We will hold on CTA at this time. Lastly, given his obesity, I added on a hemoglobin A1c which returned elevated at 6.0. Would consider discharge on metformin. Plan 04/13/22 -Will transition from Zosyn (04/09-04/13) to PO levaquin (04/14-04/22) - continue doxy (04/09-04/22) -Curbside consult to Pulm regarding transition to PO Levaquin; total 10-14 days (could transition today); can keep at 3L PRN at home -Continue steroids, scheduled duo nebs, incentive spirometry, and flutter -Replete lytes #GOLD II COPD with emphysema #Worsening shortness of breath, coughing productive of dark sputum # pneumonia, clinically resolving -Antibiotic coverage: Zosyn (04/09-04/14), doxycycline (04/09 - 04/22) -PO levaquin (04/14-04/22) 500mg daily - sputum culture consistent with normal do -Blood culture pending -Pulmonology consult -COVID swab negative, resp viral pcr panel negative, legionella negative, MRSA nares pending -Steroid--prednisone start tomorrow -Nebulizer -Incentive spirometer -Acapella pickle #Hx of PE #Hx of pneumothorax #Chronic DVT right leg -Continue Apixaban home dose -S1Q3T3 on EKG, unchanged from last EKG which was admission for PE, so unknown if this is his baseline -D-dimer, if its positive doesn't tell you much -Ordered Apixaban level #Hypertension -Hold home lisinopril for now -Daily BMP and CBC #General: Diet: No diet orders on file GI PPx: PPI DVT PPx: Apixaban Bowel PPx: Senna Dispo Code Status: Full code Yumi Byrd MD Internal Medicine, PGY - 1 Team Pager # [phone] 04/13/2022 Associated attestation - Christina Victor MD - 04/13/2022 8:23 PM EDT Attending Attestation Please see Yumi Byrd's note for details of the patient history of presentation and data. I havediscussed, reviewed and agree with the documented History, Physical findings, Assessment and Plan of care. Patient with COPD exacerbation. Pulm following. Improving, but still on 2-3 L NC. I have examined the patient myself and personally reviewed all studies. In addition, I certify thatI am a D-H credentialed attending provider with admitting privileges and that the patient meets or has met medical necessity to require an inpatient IPI level of care meeting a minimum of two midnights or is on the [facility] inpatient only procedure list (status C) due to: acute respiratory compromise and/or hypoxia requiring assessment every 4 hours and the ability to respond immediately to the patient's need * Gen Salazar MD - 04/12/2022 6:52 AM EDT Inpatient Medicine Progress Note Hospital Day 3 days Active Hospital Problems Diagnosis ??? Shortness of breath Resolved Hospital Problems No resolved problems to display. ID: 66-year-old male with history of COPD and emphysematous disease, prior left pneumothorax treated with chest tube, and DVT/PE on apixaban here with acute onset dyspnea and rigors, found to have left-sided pneumonia and sepsis 24 Hour Events: OVN: 0300 heartburn. Ordered pepjori -HENRRY HADLEYS ROS: Denies fevers/chills, chest pain, shortness of breath, diarrhea/vomiting/abdominal pain/constipation, muscle aches or weakness. 3 Inpatient Medications: Scheduled Meds: ??? apixaban 5 mg Oral BID ??? sodium chloride 0.9 % (flush) 5 mL Intravenous BID ??? senna-docusate 2 tablet Oral Nightly ??? piperacillin-tazobactam 3.375 g Intravenous Q8H ??? doxycycline monohydrate 100 mg Oral BID ??? ipratropium-albuteroL 3 mL Nebulization Q6H ??? predniSONE 40 mg Oral Daily PRN Meds: polyethylene glycoL (MIRALAX) oral powder, senna-docusate, acetaminophen, sodium chloride 0.9 % (flush), lidocaine, melatonin, albuteroL Vitals: Last value Range last 24 hrs Temperature Temp: 36.4 ??C (97.5 ??F) Temp: [36.4 ??C (97.5 ??F)-37 ??C (98.6 ??F)] Heart Rate Heart Rate: 84 Heart Rate: -- Blood Pressure BP: 124/87 BP: (124-129)/(87-91) Respiratory Rate Resp: 22 Resp: [18-22] SpO2 SpO2: 94 % SpO2: [94 %-96 %] Patient Vitals for the past 168 hrs: Weight 04/11/22 0534 103.7 kg (228 lb 9.6 oz) Ins/Outs: Intake/Output Summary (Last 24 hours) at 04/12/2022 1113 Last data filed at 04/12/2022 0840 Gross per 24 hour Intake 240 ml Output 1850 ml Net -1610 ml Physical Exam: Gen: NAD, A&Ox3, breathing comfortably on RA HEENT: PERRLA, EOMI, sclera anicteric, OP clear, MMM Neck: Supple with fROM, no appreciable LAD, no bruits, no thyromegaly CVS: RRR with normal S1/S2, no appreciable m/r/g; JVD to ~7cm, peripheral pulses full and equal Pulm: CTA b/l, breathing non-labored with good air movement, no crackles/rhonchi or wheeze Abd: NABS, soft, NT, ND, no abnormal masses or pulsations Ext: WWP, no edema, no clubbing, no cyanosis. Chest/Back: no spinal tenderness, no CVAT Skin: Intact with no rashes, petechiae, or ecchymoses Laboratory: CBC: Recent Labs 04/12/22 0611 04/11/22 0605 04/10/22 0509 WBC 14.5* 17.0* 15.3* HGB 12.5* 12.6* 12.9* PLATELET 264 264 200 Chemistry: Recent Labs 04/12/22 0611 04/11/22 0605 04/10/22 0509 NA 133* 141 138 K 4.6 4.2 4.7 CL 100 105 106 CO2 24 26 23 BUN 17 15 15 CREATININE 1.00 0.95 0.93 GLUCOSE 107 128 166 Recent Labs 04/12/22 0611 04/11/22 0605 04/10/22 0509 CALCIUM 8.8 8.8 9.2 MAGNESIUM -- -- 0.80 PHOS 3.9 3.3 1.1* LFT's: Recent Labs 04/09/22 0855 BILITOT 0.5 ALBUMIN 4.3 ALKPHOS 59 ALT 30 AST 25 Coags: No results for input(s): PT, INR, PTT, FIBRINOGEN, DDIMER in the last 168 hours. Invalid input(s): THROMBIN TIME Cardiac enzymes: Recent Labs 04/09/22 0855 TROPONINT <0.01 PROBNP 60 Endocrine: No results for input(s): TSH, CORTISOL in the last 7068 hours. Invalid input(s): [id number] Heme: No results for input(s): LDH, HAPTOGLOBIN, URICACID in the last 168 hours. Microbiology: No new results today. Imaging: No new imaging today Assessment: 66-year-old male with history of COPD and emphysematous disease, prior left pneumothorax treated with chest tube, and DVT/PE on apixaban here with acute onset dyspnea and rigors, found to have left-sided pneumonia and sepsis Patient generally clinically stable and subjectively improved after initial treatments in the emergency department. Meets sepsis criteria for heart rate and respiratory rate. 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 We will check sputum culture and respiratory pathogen panel. Given some GI distress earlier this morning, will also check urinary Legionella. Given severe structural lung disease, will continueZosyn and add doxycycline due to history of COPD and for atypical coverage. We will continue steroids, scheduled duo nebs, incentive spirometry, and flutter. Pulmonology is aware of the patient's admission. Patient does report some hemoptysis. He has a history of PE and is on apixaban. He does note that occasionally he skips a dose of apixaban here and there, but thinks he has not missed a dose in the past few days. His EKG does have an S1Q3T3 which was also present on his EKG in 2019 during his acutePE. Unclear if this conduction change has resolved in the interim given lack of EKG during the interval. However, he is normotensive, without signs or symptoms of right heart failure, and troponin isnegative. We will continue his apixaban, check an apixaban level, and continue to monitor. We will hold on CTA at this time. Lastly, given his obesity, I added on a hemoglobin A1c which returned elevated at 6.0. Would consider discharge on metformin. Plan 04/11: -Continue Zosyn and doxy -Curbside consult to Pulm regarding transition to PO Levaquin? -Continue steroids, scheduled duo nebs, incentive spirometry, and flutter -Follow pulm recs -Replete lytes #GOLD II COPD with emphysema #Worsening shortness of breath, coughing productive of dark sputum -Antibiotic coverage: Zosyn, doxycycline -Sputum culture pending -Blood culture pending -Pulmonology consult -COVID swab negative, resp viral pcr panel negative, legionella negative, MRSA nares pending -Steroid--prednisone start tomorrow -Nebulizer -Incentive spirometer -Hawk mahajan #Hx of PE #Hx of pneumothorax #Chronic DVT right leg -Continue Apixaban home dose -S1Q3T3 on EKG, unchanged from last EKG which was admission for PE, so unknown if this is his baseline -D-dimer, if its positive doesn't tell you much -Ordered Apixaban level #Hypertension -Hold home lisinopril for now -Daily BMP and CBC #General: Diet: No diet orders on file GI PPx: PPI DVT PPx: Apixaban Bowel PPx: Senna Dispo Code Status: Full code Gen Salazar MD Internal Medicine, PGY - 1 Team Pager # [phone] 04/12/2022 Associated attestation - Christina Victor MD - 04/12/2022 6:24 PM EDT Attending Attestation Please see Gen Salazar's note for details of the patient history of presentation and data. I have discussed, reviewed and agree with the documented History, Physical findings, Assessment and Plan ofcare. Patient with COPD exacerbation. Pulm following. Improving, but still on 2-3 L NC. I have examined the patient myself and personally reviewed all studies. In addition, I certify thatI am a D-H credentialed attending provider with admitting privileges and that the patient meets or has met medical necessity to require an inpatient IPI level of care meeting a minimum of two midnights or is on the [facility] inpatient only procedure list (status C) due to: acute respiratory compromise and/or hypoxia requiring assessment every 4 hours and the ability to respond immediately to the patient's need * Tete Sebastian OT - 04/11/2022 3:14 PM EDT 04/11/22 1512 Evaluation & Treatment Document Type contact Total Minutes, Occupational Therapy 0 Comment, Session Not Performed OT consult received and pt's chart was reviewed. Spoke with PT who reports pt is fully independent and does not have any needs at this time. Will continue to monitor pt's status while hospitalized and intervene if appropriate. * Maxwell Man, PT - 04/11/2022 11:28 AM EDT Physical Therapy Evaluation Patient profile: Jeremiah Savage is a 66 y.o. male with a PMH of COPD with emphysema, prior L pneumothorax, known RUL nodule, and HTN. He was admitted on 04/09/[address] Christina Victor MD for worsening SOB and a productive cough with dark sputum. Patient with the following active problems: Past Medical History: Diagnosis Date ??? COPD (chronic obstructive pulmonary disease) ??? Emphysema of lung ??? Fractures right ankle fractureas child ??? GERD (gastroesophageal reflux disease) ??? Hypertension ??? Lung disease ??? Sleep apnea Past Surgical History: Procedure Laterality Date ??? JOINT REPLACEMENT Right 1990 Active Non-Hospital Problems Diagnosis ??? Stage 2 moderate COPD by GOLD classification ??? Exercise hypoxemia ??? Panlobular emphysema ??? Right upper lobe pulmonary nodule ??? Pulmonary embolism Social History: Home set-up: Pt lives alone in a senior care apartment complex. His apartment is on the 5th floor; there is an elevator, however he reports sometimes taking the stairs (it takes me about 30 minutes, but I keep moving and I can do it) Baseline Mobility: Independent, no AD, uses O2 at baseline. 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 Does ronald chi twice/weekly, walks regularly. Denies any mobility concerns Equipment at home: Oxygen Fall history: denies Precautions/Special Considerations: At risk to fall, Full Code Lines: 2L O2 via NC Activity Orders: activity as tolerated Diet: Regular adult diet Mobility and Positioning Recommendations: ?? Pt. to utilize no AD to ambulate independently, with assist for line management. ?? Please encourage up to chair for meal times as able. ?? Pt encouraged to ambulate frequently with staff, getting into the bathroom for toileting and walking out in the [place] >/= 3 times daily as able. Subjective: ???They have ronald chi that I've been doing twice a week?? Objective: Pt seen for evaluation today. Pain: denies Vital Signs: At Rest With Activity SpO2 (2L NC) 95-97% Drop to 84% w/o O2 while using restroom, maintaining >90% during ambulation w/ 2L HR 89 bpm 100-110 bpm Mental Status: alert, oriented to person, place, and time and affect appropriate to mood Vision: no noted deficits Skin: no noted deficits Musculoskeletal: ROM: WFL BUE&BLE Strength: WFL BUE&BLE Sensation: denies numbness/tingling/paresthesias Bed Mobility: Supine to Sit: independent Sit to Supine: independent Transfers: Sit to Stand: independent using no assistive device Stand to Sit: independent using no assistive device Bed to Chair: independent using no assistive device Gait: Distance: 150' Device used: no assistive device Level of assist: independent, set-up required for O2 management Gait mechanics: Pt ambulating without AD or significant gait deviation. Able to pull O2 tank and manage within room. Taking rest breaks as needed to maintain SpO2 >88%. Stairs: N/a, anticipate no concerns Balance: Sitting Static: independent Sitting Dynamic: independent Standing Static: independent Standing Dynamic / Gait: independent Therex: N/a Education: patient has been educated on Breathing exercises, Activity pacing/Energy conservation, Role of therapy and Discharge planning and verbalizes and demonstrates understanding. Patient status, treatment, and mobility recommendations discussed with nursing. Assessment: Jeremiah Savage was seen today for physical therapy evaluation. Patient presents with increasing oxygen demands limitations in endurance and activity tolerance. Despite these deficits, thepatient was able to demonstrate safe mobility in an environment similar to that of their home, including ambulation of household distances while managing oxygen. Encouraged pt to continue to ambulateregularly with staff, and continue ronald chi and regular ambulation once home. Plan for discharge home when medically appropriate. At this time, the patient has no acute care physical therapy needs. Will continue to monitor patient while they are in the inpatient setting and be available for follow up as needed. Discharge Recommendations: Based on the current findings, Anticipated Discharge Disposition (PT): home when medically ready for hospital discharge. Discharge recommendation is based on the patient's current physical impairments, prior functional status, potential to return to prior level of function, patient motivation, reported home support, potential for functional gains, current level of endurance, reported home environment and anticipated trajectory of progress and may change based on patient progress during this hospitalization. Consult Recommendations: No other consults recommended at this time. Equipment needs: Anticipated Equipment Needs at Discharge (PT): None Physical Therapy Goals: All physical therapy goals met during initial evaluation Plan: Therapy Frequency (PT): Monitor 2017 PT Evaluation Code Rationale: ?? Diagnosis & Pertinent Co-Morbidities, personal factors, and present illness affecting Plan of Care: (see above); Additional personal factors or co- morbidities that impact plan: ?? Total # of Factors: 0 1-2 3+ x ?? Examination of body system impairments, functional limitations and behaviors, and/or participation restrictions. Addressing 1-2 elements Addressing 3 + elements x Addressing 4 + elements ?? Clinical presentation: See assessment above. Stable/Uncomplicated Evolving/Fluctuating Symptoms Unstable/Unpredictable x ?? Clinical decision making of low complexity based on pt's functional performance as outlined in this evaluation. Time IN / OUT: 0563-3071 Total Minutes, Physical Therapy: 31 Billing Code: Eval, low complexity Maxwell Man PT, DPT Pager: [phone] Physical Therapy Inpatient Rehabilitation Department * Gen Salazar MD - 04/11/2022 6:49 AM EDT Inpatient Medicine Progress Note Hospital Day 2 days Active Hospital Problems Diagnosis ??? Shortness of breath Resolved Hospital Problems No resolved problems to display. ID: 66-year-old male with history of COPD and emphysematous disease, prior left pneumothorax treated with chest tube, and DVT/PE on apixaban here with acute onset dyspnea and rigors, found to have left-sided pneumonia and sepsis 24 Hour Events: -JOMAR, VSS, phos of 1.1, replete and now Phos of 3.3 ROS: Denies fevers/chills, chest pain, shortness of breath, diarrhea/vomiting/abdominal pain/constipation, muscle aches or weakness. 2 Inpatient Medications: Scheduled Meds: ??? apixaban 5 mg Oral BID ??? pantoprazole EC 40 mg Oral Daily ??? sodium chloride 0.9 % (flush) 5 mL Intravenous BID ??? senna-docusate 2 tablet Oral Nightly ??? piperacillin-tazobactam 3.375 g Intravenous Q8H ??? doxycycline monohydrate 100 mg Oral BID ??? ipratropium-albuteroL 3 mL Nebulization Q6H ??? predniSONE 40 mg Oral Daily PRN Meds: polyethylene glycoL (MIRALAX) oral powder, senna-docusate, acetaminophen, sodium chloride 0.9 % (flush), lidocaine, melatonin, albuteroL Vitals: Last value Range last 24 hrs Temperature Temp: 36.7 ??C (98.1 ??F) Temp: [36.7 ??C (98 ??F)-37 ??C (98.6 ??F)] Heart Rate Heart Rate: 84 Heart Rate: -- Blood Pressure BP: 122/86 BP: (114-137)/(72-93) Respiratory Rate Resp: 19 Resp: [16-20] SpO2 SpO2: 94 % SpO2: [89 %-96 %] Patient Vitals for the past 168 hrs: Weight 04/11/22 0534 103.7 kg (228 lb 9.6 oz) Ins/Outs: Intake/Output Summary (Last 24 hours) at 04/11/2022 0941 Last data filed at 04/11/2022 0800 Gross per 24 hour Intake 1251.9 ml Output 3400 ml Net -2148.1 ml Physical Exam: Gen: NAD, A&Ox3, breathing comfortably on RA HEENT: PERRLA, EOMI, sclera anicteric, OP clear, MMM Neck: Supple with fROM, no appreciable LAD, no bruits, no thyromegaly CVS: RRR with normal S1/S2, no appreciable m/r/g; JVD to ~7cm, peripheral pulses full and equal Pulm: CTA b/l, breathing non-labored with good air movement, no crackles/rhonchi or wheeze Abd: NABS, soft, NT, ND, no abnormal masses or pulsations Ext: WWP, no edema, no clubbing, no cyanosis. Chest/Back: no spinal tenderness, no CVAT Skin: Intact with no rashes, petechiae, or ecchymoses Laboratory: CBC: Recent Labs 04/11/22 0605 04/10/22 0509 04/09/22 0855 WBC 17.0* 15.3* 12.2* HGB 12.6* 12.9* 14.6 PLATELET 264 200 289 Chemistry: Recent Labs 04/11/22 0605 04/10/22 0509 04/09/22 0855 NA 141 138 137 K 4.2 4.7 4.1 CL 105 106 103 CO2 26 23 21* BUN 15 15 16 CREATININE 0.95 0.93 0.99 GLUCOSE 128 166 144 Recent Labs 04/11/22 0605 04/10/22 0509 04/09/22 0855 CALCIUM 8.8 9.2 9.2 MAGNESIUM -- 0.80 -- PHOS 3.3 1.1* -- LFT's: Recent Labs 04/09/22 0855 BILITOT 0.5 ALBUMIN 4.3 ALKPHOS 59 ALT 30 AST 25 Coags: No results for input(s): PT, INR, PTT, FIBRINOGEN, DDIMER in the last 168 hours. Invalid input(s): THROMBIN TIME Cardiac enzymes: Recent Labs 04/09/22 0855 TROPONINT <0.01 PROBNP 60 Endocrine: No results for input(s): TSH, CORTISOL in the last 7068 hours. Invalid input(s): [id number] Heme: No results for input(s): LDH, HAPTOGLOBIN, URICACID in the last 168 hours. Microbiology: No new results today. Imaging: No new imaging today Assessment: 66-year-old male with history of COPD and emphysematous disease, prior left pneumothorax treated with chest tube, and DVT/PE on apixaban here with acute onset dyspnea and rigors, found to have left-sided pneumonia and sepsis Patient generally clinically stable and subjectively improved after initial treatments in the emergency department. Meets sepsis criteria for heart rate and respiratory rate. 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 We will check sputum culture and respiratory pathogen panel. Given some GI distress earlier this morning, will also check urinary Legionella. Given severe structural lung disease, will continueZosyn and add doxycycline due to history of COPD and for atypical coverage. We will continue steroids, scheduled duo nebs, incentive spirometry, and flutter. Pulmonology is aware of the patient's admission. Patient does report some hemoptysis. He has a history of PE and is on apixaban. He does note that occasionally he skips a dose of apixaban here and there, but thinks he has not missed a dose in the past few days. His EKG does have an S1Q3T3 which was also present on his EKG in 2019 during his acutePE. Unclear if this conduction change has resolved in the interim given lack of EKG during the interval. However, he is normotensive, without signs or symptoms of right heart failure, and troponin isnegative. We will continue his apixaban, check an apixaban level, and continue to monitor. We will hold on CTA at this time. Lastly, given his obesity, I added on a hemoglobin A1c which returned elevated at 6.0. Would consider discharge on metformin. Plan 04/11: -Continue Zosyn and doxy -Follow up blood cultures, sputum cultures -Follow up resp pathogen panel -Check urinary legionella -Continue steroids, scheduled duo nebs, incentive spirometry, and flutter -Follow pulm recs -Replete lytes #GOLD II COPD with emphysema #Worsening shortness of breath, coughing productive of dark sputum -Antibiotic coverage: Zosyn, doxycycline -Sputum culture pending -Blood culture pending -Pulmonology consult -COVID swab negative, resp viral pcr panel negative, legionella negative, MRSA nares pending -Steroid--prednisone start tomorrow -Nebulizer -Incentive spirometer -Acapella pickle #Hx of PE #Hx of pneumothorax #Chronic DVT right leg -Continue Apixaban home dose -S1Q3T3 on EKG, unchanged from last EKG which was admission for PE, so unknown if this is his baseline -D-dimer, if its positive doesn't tell you much -Ordered Apixaban level #Hypertension -Hold home lisinopril for now -Daily BMP and CBC #General: Diet: No diet orders on file GI PPx: PPI DVT PPx: Apixaban Bowel PPx: Senna Dispo Code Status: Full code Gen Salazar MD Internal Medicine, PGY - 1 Team Pager # [phone] 04/11/2022 Associated attestation - Christina Victor MD - 04/11/2022 1:46 PM EDT Attending Attestation Please see Gen Salazar's note for details of the patient history of presentation and data. I have discussed, reviewed and agree with the documented History, Physical findings, Assessment and Plan ofcare. Patient with COPD exacerbation. Pulm following. Improving, but still on 2-3 L NC. I have examined the patient myself and personally reviewed all studies. In addition, I certify thatI am a [facility] credentialed attending provider with admitting privileges and that the patient meets or has met medical necessity to require an inpatient IPI level of care meeting a minimum of two midnights or is on the [facility] inpatient only procedure list (status C) due to: acute respiratory compromise and/or hypoxia requiring assessment every 4 hours and the ability to respond immediately to the patient's need * Gen Salazar MD - 04/10/2022 6:48 AM EDT Inpatient Medicine Progress Note Hospital Day 1 day Active Hospital Problems Diagnosis Shortness of breath Resolved Hospital Problems No resolved problems to display. ID: 66-year-old male with history of COPD and emphysematous disease, prior left pneumothorax treated with chest tube, and DVT/PE on apixaban here with acute onset dyspnea and rigors, found to have left-sided pneumonia and sepsis 24 Hour Events: -JOMAR, VSS, phos of 1.1 this morning, repleted ROS: Denies fevers/chills, chest pain, shortness of breath, diarrhea/vomiting/abdominal pain/constipation, muscle aches or weakness. Inpatient Medications: Scheduled Meds: potassium, sodium phosphates 3 g Oral 4 Times Daily apixaban 5 mg Oral BID pantoprazole EC 40 mg Oral Daily sodium chloride 0.9 % (flush) 5 mL Intravenous BID senna-docusate 2 tablet Oral Nightly piperacillin-tazobactam 3.375 g Intravenous Q8H doxycycline monohydrate 100 mg Oral BID ipratropium-albuteroL 3 mL Nebulization Q6H predniSONE 40 mg Oral Daily PRN Meds: polyethylene glycoL (MIRALAX) oral powder, senna-docusate, acetaminophen, sodium chloride 0.9 % (flush), lidocaine, melatonin, albuteroL Vitals: Last value Range last 24 hrs Temperature Temp: 36.8 ??C (98.3 ??F) Temp: [36.5 ??C (97.7 ??F)-37 ??C (98.6 ??F)] Heart Rate Heart Rate: 84 Heart Rate: [84-108] Blood Pressure BP: 114/72 BP: (98-152)/(62-96) Respiratory Rate Resp: 18 Resp: [18-29] SpO2 SpO2: 90 % SpO2: [90 %-95 %] No data found. Ins/Outs: Intake/Output Summary (Last 24 hours) at 04/10/2022 1227 Last data filed at 04/10/2022 1218 Gross per 24 hour Intake 3344.8 ml Output 3950 ml Net -605.2 ml Physical Exam: Gen: NAD, A&Ox3, breathing comfortably on RA HEENT: PERRLA, EOMI, sclera anicteric, OP clear, MMM Neck: Supple with fROM, no appreciable LAD, no bruits, no thyromegaly CVS: RRR with normal S1/S2, no appreciable m/r/g; JVD to ~7cm, peripheral pulses full and equal Pulm: CTA b/l, breathing non-labored with good air movement, no crackles/rhonchi or wheeze Abd: NABS, soft, NT, ND, no abnormal masses or pulsations Ext: WWP, no edema, no clubbing, no cyanosis. Chest/Back: no spinal tenderness, no CVAT Skin: Intact with no rashes, petechiae, or ecchymoses Laboratory: CBC: Recent Labs 04/10/22 0509 04/09/22 0855 WBC 15.3* 12.2* HGB 12.9* 14.6 PLATELET 200 289 Chemistry: Recent Labs 04/10/22 0509 04/09/22 0855 NA 138 137 K 4.7 4.1 CL 106 103 CO2 23 21* BUN 15 16 CREATININE 0.93 0.99 GLUCOSE 166 144 Recent Labs 04/10/22 0509 04/09/22 0855 CALCIUM 9.2 9.2 MAGNESIUM 0.80 -- PHOS 1.1* -- LFT's: Recent Labs 04/09/22 0855 BILITOT 0.5 ALBUMIN 4.3 ALKPHOS 59 ALT 30 AST 25 Coags: No results for input(s): PT, INR, PTT, FIBRINOGEN, DDIMER in the last 168 hours. Invalid input(s): THROMBIN TIME Cardiac enzymes: Recent Labs 04/09/22 0855 TROPONINT <0.01 PROBNP 60 Endocrine: No results for input(s): TSH, CORTISOL in the last 7068 hours. Invalid input(s): [id number] Heme: No results for input(s): LDH, HAPTOGLOBIN, URICACID in the last 168 hours. Microbiology: Microbiology Results (last 7 days) Procedure Component Value - Date/Time Lower Respiratory Culture Sputum Expectorated [[id number]] Collected: 04/09/22 1902 Lab Status: Preliminary result Specimen: Sputum Expectorated Updated: 04/09/222023 Gram Stain -- Few squamous epithelial cells seen Few Neutrophils seen Rare mixed bacterial morphotypes suggestive of normal upper respiratory do seen COVID-19 PCR [[id number]] Collected: 04/09/22924 Lab Status: Final result Specimen: Tracheal Aspirate Updated: 04/09/22 174 SARS-CoV-2 RNA Not Detected Comment: This result should be interpreted in combination with the clinical observations, patient history and epidemiological information in making a final diagnosis. For testing of asymptomatic individuals, assay performance characteristics and clinical utility have not been evaluated. Testing for SARS-CoV-2 (Severe acute respiratory syndrome coronavirus 2, formerly known as 2019 novel coronavirus or 2019-nCoV) to aid in the diagnosis of COVID-19 is performed using the [employer] m SARS-CoV-2 Assay as authorized by the FDA Emergency Use Authorization (EUA). This EUA assay is intended for In-vitro Diagnostic (IVD) use with respiratory specimens such as nasopharyngeal swabs collected from individuals during the acute phase of infection. This assay is performed based on the instructions for use provided by [employer] and additional guidance provided by CDC and FDA. Testing is performed in the [facility] within the Department of Pathology and Laboratory Medicine at [facility], certified under the Clinical Laboratory Improvement Amendments of 1988 (CLIA), 42 U.S.C. 263a, to perform high complexity tests. Assay performance has been verified according to clinical laboratory regulatory requirements for use with specimens collected from individuals suspected of COVID-19. Test results are provided above. A result of Not Detected indicates that the viral RNA target is not present above the limit of detection, but does not preclude SARS-CoV-2 infection. False negative results may occur if a specimen is improperly collected, transported or handled; if amplification inhibitors are present; or if inadequate numbers of viral particles are present in the specimen. When a diagnostic test is negative, the possibility of a false negative result should be considered in the context of a patient's recent exposures and the presence of clinical signs and symptoms consistent with COVID-19. A result of Detected indicates that RNA from SARS-CoV-2 was detected and the patient is infected. As required or requested by public health authorities, positive specimens may be sent for additional testing. Positive and negative predictive values for this test are highly dependent on disease prevalence. A result of Invalid indicates that neither the viral RNA targets nor the internal control target was detected. An invalid result suggests the presence of inhibitors. Recollection and re-testing is recommended in the case of an invalid result. CDC COVID-19 criteria for testing on human specimens and clinical management guidance information are available at the CDC Coronavirus Disease 2019 (COVID-19) webpage under Information for Healthcare Professionals (https://www.cdc.gov/coronavirus/2019-ncov/hcp/index.html) Additional information about this and other EUA tests can be found in provider and patient fact sheets at the following FDA website: https://www.fda.gov/medical-devices/kxohdjftvbn-tisvyhk-3750-riypr-69-pffeznulj- qsq-hraqvzbuliqluw-unrhoaw-devices/fcnhc-cibyiakrpgd-oopv SARS-Cov-2 RNA Source Trach Asp Legionella Urinary Antigen [[id number]] Collected: 04/09/22 1510 Lab Status: Final result Specimen: Urine Updated: 04/09/22 1656 Legionella Urinary Antigen Negative Comment: A negative Legionella Urinary Antigen by EIA suggests no recent or current infection with L. pneumophila Serogroup 1. Antigen may not be present in urine in early infection, and the level of antigen present in the urine may be below the detection limit of the test. Sensitivity: 95% Specificity 95%. Respiratory Panel PCR [[id number]] Collected: 04/09/22 1323 Lab Status: Final result Specimen: Nasopharyngeal Swab Updated: 04/09/22 1535 Resp Panel Source [employer] ASSIST[employer] Swab Resp Panel PCR Negative Comment: Respiratory Panels are performed on the [employer], using multiplexed PCR nucleic acid detection. Negative results do not preclude respiratory infection and should not be used as the sole basis for diagnosis, treatment or other management decisions. Adenovirus Not Detected Coronavirus HKU1 Not Detected Coronavirus NL63 Not Detected Coronavirus 229E Not Detected Coronavirus OC43 Not Detected SARS-CoV-2 Not Detected Comment: Testing for SARS-CoV-2 (Severe acute respiratory syndrome coronavirus 2) to aid in the diagnosis of COVID-19 is performed using the [employer] Respiratory Panel 2.1 ([employer]) as authorized by the FDA issued Emergency Use Authorization (EUA). This panel also tests for multiple other viral and bacterial pathogens. This assay is intended for In-vitro Diagnostic (IVD) use with nasopharyngeal swabs in viral transport media. The assay is performed based on the instructions for use and additional guidance provided by the FDA. Testing is performed in laboratories within the [facility], each of which is certified under the Clinical Laboratory Improvement Amendments of 1988 (CLIA), 42 U.S.C. section 263a, to perform high-complexity tests. Assay performance has been verified according to clinical laboratory regulatory requirements. The test result for SARS-CoV-2 provided above should be interpreted in combination with the clinical observation, patient history and epidemiological information. For testing of asymptomatic individuals, assay performance characteristics and clinical utility have not been evaluated. A result of Not Detected indicates that the viral RNA target is not present but does not preclude SARS-CoV-2 infection. False negative results may occur if a specimen is improperly collected, transported or handled; if amplification inhibitors are present; or if inadequate numbers of viral particles are present in the specimen. When a diagnostic test is negative, the possibility of a false negative result should be considered in the context of a patient's recent exposures and the presence of clinical signs and symptoms consistent with COVID-19. A result of Detected suggests a current or recent infection. Positive and negative predictive values for this test are dependent on disease prevalence. A result of Invalid indicates the inability to conclusively determine the presence or absence of SARS-CoV-2 RNA in the sample which can be due to a variety of factors. Collection of a new sample for repeat testing is recommended in the case of an invalid result. CDC COVID-19 criteria for testing on human specimens and clinical management guidance information are available at the CDC Coronavirus Disease 2019 (COVID-19) webpage under Information for Healthcare Professionals (https://www.cdc.gov/coronavirus/2019-ncov/hcp/index.html). Additional information about this and other EUA tests can be found in provider and patient fact sheets at the following FDA website: https://www.fda.gov/medical-devices/fcdpajjjpwm-vcqxogn-7374-ivfjt-34-xlpjbjlzt- tpv-cxshhiqfjkxlwz-nyivrvx-devices/tpgac-eiyjmmmuhtc-xqaa Human Metapneumovirus Not Detected Human Rhino/Enterovirus Not Detected Influenza A Not Detected Influenza B Not Detected Parainfluenza 1 Not Detected Parainfluenza 2 Not Detected Parainfluenza 3 Not Detected Parainfluenza 4 Not Detected Respiratory Syncytial Virus Not Detected Chlamydophila pneumoniae Not Detected Mycoplasma pneumoniae Not Detected Microbiology Results (last 6 months) Procedure Component Value - Date/Time Lower Respiratory Culture Sputum Expectorated [[id number]] Collected: 04/09/22 1902 Lab Status: Preliminary result Specimen: Sputum Expectorated Updated: 04/09/222023 Gram Stain -- Few squamous epithelial cells seen Few Neutrophils seen Rare mixed bacterial morphotypes suggestive of normal upper respiratory do seen Legionella Urinary Antigen [[id number]] Collected: 04/09/22 1510 Lab Status: Final result Specimen: Urine Updated: 04/09/22 1656 Legionella Urinary Antigen Negative Comment: A negative Legionella Urinary Antigen by EIA suggests no recent or current infection with L. pneumophila Serogroup 1. Antigen may not be present in urine in early infection, and the level of antigen present in the urine may be below the detection limit of the test. Sensitivity: 95% Specificity 95%. Respiratory Panel PCR [[id number]] Collected: 04/09/22 1323 Lab Status: Final result Specimen: Nasopharyngeal Swab Updated: 04/09/22 1535 Resp Panel Source [employer]CHANDISING ASSISTANT Swab Resp Panel PCR Negative Comment: Respiratory Panels are performed on the [employer], using multiplexed PCR nucleic acid detection. Negative results do not preclude respiratory infection and should not be used as the sole basis for diagnosis, treatment or other management decisions. Adenovirus Not Detected Coronavirus HKU1 Not Detected Coronavirus NL63 Not Detected Coronavirus 229E Not Detected Coronavirus OC43 Not Detected SARS-CoV-2 Not Detected Comment: Testing for SARS-CoV-2 (Severe acute respiratory syndrome coronavirus 2) to aid in the diagnosis of COVID-19 is performed using the [employer] Respiratory Panel 2.1 ([employer]) as authorized by the FDA issued Emergency Use Authorization (EUA). This panel also tests for multiple other viral and bacterial pathogens. This assay is intended for In-vitro Diagnostic (IVD) use with nasopharyngeal swabs in viral transport media. The assay is performed based on the instructions for use and additional guidance provided by the FDA. Testing is performed in laboratories within the [facility], each of which is certified under the Clinical Laboratory Improvement Amendments of 1988 (CLIA), 42 U.S.C. section 263a, to perform high-complexity tests. Assay performance has been verified according to clinical laboratory regulatory requirements. The test result for SARS-CoV-2 provided above should be interpreted in combination with the clinical observation, patient history and epidemiological information. For testing of asymptomatic individuals, assay performance characteristics and clinical utility have not been evaluated. A result of Not Detected indicates that the viral RNA target is not present but does not preclude SARS-CoV-2 infection. False negative results may occur if a specimen is improperly collected, transported or handled; if amplification inhibitors are present; or if inadequate numbers of viral particles are present in the specimen. When a diagnostic test is negative, the possibility of a false negative result should be considered in the context of a patient's recent exposures and the presence of clinical signs and symptoms consistent with COVID-19. A result of Detected suggests a current or recent infection. Positive and negative predictive values for this test are dependent on disease prevalence. A result of Invalid indicates the inability to conclusively determine the presence or absence of SARS-CoV-2 RNA in the sample which can be due to a variety of factors. Collection of a new sample for repeat testing is recommended in the case of an invalid result. CDC COVID-19 criteria for testing on human specimens and clinical management guidance information are available at the CDC Coronavirus Disease 2019 (COVID-19) webpage under Information for Healthcare Professionals (https://www.cdc.gov/coronavirus/2019-ncov/hcp/index.html). Additional information about this and other EUA tests can be found in provider and patient fact sheets at the following FDA website: https://www.fda.gov/medical-devices/igxpullpojx-qqohxvv-9805-bwlvr-55-iaskmworc- iwb-pmvsrlrrjtmjoi-cgiaepk-devices/dpvzk-rmadukdtnpm-gouj Human Metapneumovirus Not Detected Human Rhino/Enterovirus Not Detected Influenza A Not Detected Influenza B Not Detected Parainfluenza 1 Not Detected Parainfluenza 2 Not Detected Parainfluenza 3 Not Detected Parainfluenza 4 Not Detected Respiratory Syncytial Virus Not Detected Chlamydophila pneumoniae Not Detected Mycoplasma pneumoniae Not Detected COVID-19 PCR [[id number]] Collected: 04/09/22 0925 Lab Status: Final result Specimen: Tracheal Aspirate Updated: 04/09/22 1746 SARS-CoV-2 RNA Not Detected Comment: This result should be interpreted in combination with the clinical observations, patient history and epidemiological information in making a final diagnosis. For testing of asymptomatic individuals, assay performance characteristics and clinical utility have not been evaluated. Testing for SARS-CoV-2 (Severe acute respiratory syndrome coronavirus 2, formerly known as 2019 novel coronavirus or 2019-nCoV) to aid in the diagnosis of COVID-19 is performed using the [employer] m SARS-CoV-2 Assay as authorized by the FDA Emergency Use Authorization (EUA). This EUA assay is intended for In-vitro Diagnostic (IVD) use with respiratory specimens such as nasopharyngeal swabs collected from individuals during the acute phase of infection. This assay is performed based on the instructions for use provided by [employer] and additional guidance provided by CDC and FDA. Testing is performed in the [facility] within the Department of Pathology and Laboratory Medicine at [facility], certified under the Clinical Laboratory Improvement Amendments of 1988 (CLIA), 42 U.S.C. 263a, to perform high complexity tests. Assay performance has been verified according to clinical laboratory regulatory requirements for use with specimens collected from individuals suspected of COVID-19. Test results are provided above. A result of Not Detected indicates that the viral RNA target is not present above the limit of detection, but does not preclude SARS-CoV-2 infection. False negative results may occur if a specimen is improperly collected, transported or handled; if amplification inhibitors are present; or if inadequate numbers of viral particles are present in the specimen. When a diagnostic test is negative, the possibility of a false negative result should be considered in the context of a patient's recent exposures and the presence of clinical signs and symptoms consistent with COVID-19. A result of Detected indicates that RNA from SARS-CoV-2 was detected and the patient is infected. As required or requested by public health authorities, positive specimens may be sent for additional testing. Positive and negative predictive values for this test are highly dependent on disease prevalence. A result of Invalid indicates that neither the viral RNA targets nor the internal control target was detected. An invalid result suggests the presence of inhibitors. Recollection and re-testing is recommended in the case of an invalid result. CDC COVID-19 criteria for testing on human specimens and clinical management guidance information are available at the CDC Coronavirus Disease 2019 (COVID-19) webpage under Information for Healthcare Professionals (https://www.cdc.gov/coronavirus/2019-ncov/hcp/index.html) Additional information about this and other EUA tests can be found in provider and patient fact sheets at the following FDA website: https://www.fda.gov/medical-devices/dbyeohldqes-bubiwql-2678-uggsz-59-pzjwxfssc- kan-vbfbnncwkejuhj-cfazfep-devices/miyau-aoqxvvvewbh-tcif SARS-Cov-2 RNA Source Trach Asp Imaging / Diagnostic Studies: Results for orders placed or performed during the hospital encounter of 04/09/22 XR Chest One View (Exam End: 04/09/2022 9:35 AM) Narrative EXAMINATION: XR CHEST ONE VIEW CLINICAL HISTORY: Shortness of breath TECHNIQUE: One view, AP portable chest COMPARISON: 12/28/2021 CT chest without contrast and 11/27/2017 frontal chest-both studies from [facility]. FINDINGS: There are bilateral emphysematous changes and bullous changes demonstrated. Small left apical pneumothorax. Left sided lower lung airspace disease and increased interstitial markings. The cardiomediastinal silhouette is normal. There is no midline shift. The pulmonary vasculature is normal. There are no pleural effusions. No acute displaced rib fractures. No suspicious skeletal lesions demonstrated. Impression Small left apical pneumothorax, estimated to be up to 15%. No midline shift. Left base airspace disease. Thank you for letting us participate in the care of this patient. If you are a health care provider and have any questions regarding this report, please contact the number below. For patients who have questions please contact the health personal care assistant that requested your imaging first. Chest wo Contrast (Generic) (Exam End: 04/09/2022 12:43 PM) Narrative EXAMINATION: CT CHEST WO CONTRAST (GENERIC) CLINICAL HISTORY: Pneumothorax; ptx on xray TECHNIQUE: 3.75 mm thick axial contiguous sections were obtained through the chest via helical acquisition without intravenous contrast administration. Thin-section reconstructions as well as coronal and sagittal reformatted images were generated. COMPARISON: 04/09/2022 frontal chest and 12/27/2021 CT chest FINDINGS: Pulmonary parenchyma: Diffuse centrilobular emphysematous changes are again demonstrated particularly at the apices. There are bullous changes within the lungs as well 2 cm focus is noted at the right base. There is increased interstitial markings and patchy opacities peripherally throughout the left lung though greatest at the left base. Airways: No significant findings. Pleura: No pleural effusions. No pneumothorax. Lymph nodes: No lymphadenopathy Heart, pericardium, and great vessels: Moderate atherosclerotic coronary artery calcifications. No pericardial effusion. Other mediastinal structures: No significant findings. Lower neck: No significant findings. Upper abdomen: 15 mm cyst in the right lobe of the liver noted. Other subcentimeter hypodensities in the liver are too small to characterize though statistically likely benign. Punctate calcified granulomas in the spleen incidentally noted. Body wall soft tissues: No significant findings. Skeletal structures: No significant findings. Impression There is no pneumothorax. Extensive centrilobular emphysematous changes are demonstrated. Left-sided airspace disease and increased interstitial markings are noted particularly at the left base. This is new compared with prior chest CT and may represent infectious etiology. There is no adenopathy identified at this time. Thank you for letting us participate in the care of this patient. If you are a health care provider and have any questions regarding this report, please contact the number below. For patients who have questions please contact the health personal care assistant that requested your imaging first. Assessment: 66-year-old male with history of COPD and emphysematous disease, prior left pneumothorax treated with chest tube, and DVT/PE on apixaban here with acute onset dyspnea and rigors, found to have left-sided pneumonia and sepsis Patient generally clinically stable and subjectively improved after initial treatments in the emergency department. Meets sepsis criteria for heart rate and respiratory rate. 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 We will check sputum culture and respiratory pathogen panel. Given some GI distress earlier this morning, will also check urinary Legionella. Given severe structural lung disease, will continueZosyn and add doxycycline due to history of COPD and for atypical coverage. We will continue steroids, scheduled duo nebs, incentive spirometry, and flutter. Pulmonology is aware of the patient's admission. Patient does report some hemoptysis. He has a history of PE and is on apixaban. He does note that occasionally he skips a dose of apixaban here and there, but thinks he has not missed a dose in the past few days. His EKG does have an S1Q3T3 which was also present on his EKG in 2019 during his acutePE. Unclear if this conduction change has resolved in the interim given lack of EKG during the interval. However, he is normotensive, without signs or symptoms of right heart failure, and troponin isnegative. We will continue his apixaban, check an apixaban level, and continue to monitor. We will hold on CTA at this time. Lastly, given his obesity, I added on a hemoglobin A1c which returned elevated at 6.0. Would consider discharge on metformin. Plan 04/10: -Continue Zosyn and doxy -Follow up blood cultures, sputum cultures -Follow up resp pathogen panel -Check urinary legionella -Continue steroids, scheduled duo nebs, incentive spirometry, and flutter -Follow pulm recs #GOLD II COPD with emphysema #Worsening shortness of breath, coughing productive of dark sputum -Antibiotic coverage: Zosyn, doxycycline -Sputum culture pending -Blood culture pending -Pulmonology consult -COVID swab negative, resp viral pcr panel negative, legionella negative, MRSA nares pending -Steroid--prednisone start tomorrow -Nebulizer -Incentive spirometer -Acapella pickle #Hx of PE #Hx of pneumothorax #Chronic DVT right leg -Continue Apixaban home dose -S1Q3T3 on EKG, unchanged from last EKG which was admission for PE, so unknown if this is his baseline -D-dimer, if its positive doesn't tell you much -Ordered Apixaban level #Hypertension -Hold home lisinopril for now -Daily BMP and CBC #General: Diet: No diet orders on file GI PPx: PPI DVT PPx: Apixaban Bowel PPx: Senna Dispo Code Status: Full code Gen Salazar MD Internal Medicine, PGY - 1 Team Pager # [phone] 04/10/2022 Associated attestation - Christina Victor MD - 04/10/2022 2:35 PM EDT Attending Attestation Please see Gen Salazar's note for details of the patient history of presentation and data. I have discussed, reviewed and agree with the documented History, Physical findings, Assessment and Plan ofcare. I have examined the patient myself and personally reviewed all studies. In addition, I certify thatI am a D-H credentialed attending provider with admitting privileges and that the patient meets or has met medical necessity to require an inpatient IPI level of care meeting a minimum of two midnights or is on the [facility] inpatient only procedure list (status C) due to: acute respiratory compromise and/or hypoxia requiring assessment every 4 hours and the ability to respond immediately to the patient's need * Britt Navas RN - 04/09/2022 5:44 PM EDT Pt arrived from ED on at 1700. Pt A&Ox4. Pt tachypneic in the 20s w/ labored breathing but >92% in 3 L NC and endorses improved SOB. Pt tachycardic in the low 100s. Pt denies pain and numbness/tingling. Bed alarm set. Call gao within reach. Safety maintained. Will continue to monitor. documented in this encounter H&P Notes * Gen Salazar MD - 04/09/2022 12:02 PM EDT Images from the original note were not included. [facility] Inpatient History and Physical Date: 04/09/22 Patient Information: Jeremiah Savage [id number] PCP: Susannah Perez MD PCP Admit Date: 04/09/2022 8:33 AM Hospital Day 0 days Patient ID: 66 y.o. M; Gold II COPD with emphysema (not on home O2 per recent pulm notes); prior L pneumothoraxdue to ruptured bleb in 2019 treated with chest tube; hx PE in 2019 (on apixaban), known RUL nodule, and hypertension. Patient Active Problem List Diagnosis Code ??? Pulmonary embolism I26.99 ??? Panlobular emphysema J43.1 ??? Right upper lobe pulmonary nodule R91.1 ??? Stage 2 moderate COPD by GOLD classification J44.9 ??? Exercise hypoxemia R09.02 ??? Shortness of breath R06.02 HPI Mr. Savage was in his usual state of health yesterday, out for [employer] [place] [employer] [place] with friends to celebrate his birthday. He returned to his apartment for the evening and overnight awoke shivering, feeling cold and sweaty. He describes his shivers as severe and violent, causing pain in his muscles. Hedenies any known sick contacts or recent travel. He denies any nasal congestion, headaches, nausea,or vomiting. He does report an episode of diarrhea this morning. Mr. Savage endorses a productive cough, shortness of breath, and difficulty catching his breath. He does not report any pain with inhalation. The patient endorses an episode of dark bloody sputum this morning. This morning, he felt as though he could not catch his breath and the cough was causing him pain inthe lower left back, so he called EMS. When EMS arrived, EMS noted Temp 39C +SpO2 in 70s% on their arrival, they started 3L/min O2 via LFNC. Mr. Savage is followed by Dr. Russel Younger in the outpatient setting, last seen on 03/28/2022. ED Course: Temp Afebrile, HR initially 140s --> subsequently 110s, BP 110s/70s, RR 20s-30s, SpO2 93% on 3L/min --> placed on 6L/min O2 LFNC --> subsequently decreased back to 3L/min after treatments (see below). Labs: CBC with Leukocytosis to 12.2; BMP wnl; VBG with normal pH, PCO2 40, lactate 3.2; troponin undectable; Blood cultures were drawn (after ceftriaxone was given). Imaging: CXR with evidence of small R-sided apical pneumothorax and chronic emphysema (no mention of pneumonia in report) Treatments/Interventions: Got 3 duobenbs and ceftriaxone. After receiving ceftriaxone, given concern for sepsis criteria he was given Vancomycin and, Zosyn, Methylprenisolone 125mg IV. Per ED provider, he clinically appeared improved/more comfortable after receiving these treatments He also had a CT scan without contrast which showed there is no pneumothorax. Extensive centrilobular emphysematous changes are demonstrated. Left-sided airspace disease and increased interstitial markings are noted particularly at the left base. This is new compared with prior chest CT and may represent infectious etiology. There is no adenopathy identified at this time. Medical History Past Medical History: Diagnosis Date ??? COPD (chronic obstructive pulmonary disease) ??? Emphysema of lung ??? Fractures right ankle fractureas child ??? GERD (gastroesophageal reflux disease) ??? Hypertension ??? Lung disease ??? Sleep apnea Surgical History Past Surgical History: Procedure Laterality Date ??? JOINT REPLACEMENT Right 1989 Social History Social History Socioeconomic History ??? Marital status: Single Spouse name: Not on file ??? Number of children: Not on file ??? Years of education: Not on file ??? Highest education level: Not on file Occupational History ??? Not on file Tobacco Use ??? Smoking status: Former Smoker Packs/day: 1.50 Years: 40.00 Pack years: 60.00 Types: Cigarettes Quit date: 11/17/2017 Years since quittin.3 ??? Smokeless tobacco: Never Used Vaping Use ??? Vaping Use: Never used Substance and Sexual Activity ??? Alcohol use: Not on file ??? Drug use: Not on file ??? Sexual activity: Not on file Other Topics Concern ??? 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 Negative for activity change, appetite change and unexpected weight change. HENT: Negative. Eyes: Negative. Respiratory: Positive for cough and shortness of breath. Cardiovascular: Negative. Gastrointestinal: Negative. Endocrine: Negative. Genitourinary: Negative. Musculoskeletal: Negative. Allergic/Immunologic: Negative. Neurological: Positive for headaches. Negative for dizziness, tremors, seizures, syncope, facial asymmetry, speech difficulty, weakness, light-headedness and numbness. Hematological: Negative. Psychiatric/Behavioral: Negative. Physical Exam: Vitals: Latest Value 24 Hour Range Temperature Temp: 37.4 ??C (99.3 ??F) Temp: [37.4 ??C (99.3 ??F)] Blood Pressure BP: 122/87 BP: (99-138)/(71-100) Heart Rate Heart Rate: 99 Heart Rate: [99-146] Respiration Rate Resp: 19 Resp: [17-33] O2 Saturation SpO2: 92 % SpO2: [89 %-97 %] Ins and Outs: No intake or output data in the 24 hours ending 04/09/22 1541 Physical Exam Constitutional: Appearance: He is not diaphoretic. Comments: On O2 supplementation, nasal canula HENT: Head: Normocephalic. Eyes: Pupils: Pupils are equal, round, and reactive to light. Cardiovascular: Rate and Rhythm: Normal rate and regular rhythm. Heart sounds: Normal heart sounds. Pulmonary: Breath sounds: Wheezing present. Abdominal: General: Bowel sounds are normal. Palpations: Abdomen is soft. Musculoskeletal: General: Normal range of motion. Cervical back: Neck supple. Neurological: Mental Status: He is alert and oriented to person, place, and time. Labs: 14.6 137 103 16 4.3 6.9 9.2 12.2 H/H 289 4.1 21 .99 -- .5 -- 44.2 25 30 -- 59 88.6N (.2B) / 7.2L / 3.3M / .2E / .5B Recent Labs 04/09/22 0855 HA1C 6.0* Micro: No new results Imaging: CT Chest wo Contrast (Generic) Final Result There is no pneumothorax. Extensive centrilobular emphysematous changes are demonstrated. Left-sided airspace disease and increased interstitial markings are noted particularly at the left base. This is new compared with prior chest CT and may represent infectious etiology. There is no adenopathy identified at this time. Thank you for letting us participate in the care of this patient. If you are a health care provider and have any questions regarding this report, please contact the number below. For patients who have questions please contact the health personal care assistant that requested your imaging first. Chest One View Final Result Small left apical pneumothorax, estimated to be up to 15%. No midline shift. Left base airspace disease. Thank you for letting us participate in the care of this patient. If you are a health care provider and have any questions regarding this report, please contact the number below. For patients who have questions please contact the health personal care assistant that requested your imaging first. Assessment and Plan 66 y.o. M; Gold II COPD with emphysema (not on home O2 per recent pulm notes); prior L pneumothoraxdue to ruptured bleb in 2019 treated with chest tube; hx PE in 2019 (on apixaban), known RUL nodule, hypertension. Given the patient's chronic insterstitial lung disease, and compromised immunity (A1C of 6.0), he is prone to community acquired bacterial pneumonia. Given the CT imaging findings showing significantinterstitial inflammation and damage, the differential includes atypical bugs, MRSA infection, pseudomonas, and legionella (given the patient's history of diarrhea this morning). Given the history of bronchiectasis, he is predisposed to infection with pseudomonas, so we have placed him on Zosyn. This will also cover for common community acquired bugs like H. Flu, or strep pneumo (Ceftriaxone has significant overlap for bacterial coverage, but Zosyn provides the added benefit of pseudomonal coverage). For atypical coverage, we'll start the patient on doxycycline (this alsocovers for legionella). Although the patient has some risk factors for MRSA infection, the absence of lobar consolidation on imaging suggest alternative etiologies. Given this, we have discontinued the Vancomycin coverage. If patient is hypotensive or shows signs of right heart strain or troponin leaks, consider PE. #GOLD II COPD with emphysema #Worsening shortness of breath, coughing productive of dark sputum -Antibiotic coverage: Zosyn, doxycycline -Sputum culture pending -Blood culture pending -Pulmonology consult -COVID swab pending, resp viral pcr panel pending, MRSA nares pending -Steroid--prednisone start tomorrow -Nebulizer -Incentive spirometer -Acapella pickle #Hx of PE #Hx of pneumothorax #Chronic DVT right leg -Continue Apixaban home dose -S1Q3T3 on EKG, unchanged from last EKG which was admission for PE, so unknown if this is his baseline -D-dimer, if its positive doesn't tell you much -Ordered Apixaban level #Hypertension -Hold home lisinopril for now -Daily BMP and CBC #General: Diet: No diet orders on file GI PPx: PPI DVT PPx: Apixaban Bowel PPx: Senna Dispo Code Status: Full code Gen Salazar MD 04/09/22 3:41 PM Internal Medicine, PGY-1 Team Pager: [phone] Associated attestation - Attila Daniel MD - 04/09/2022 4:00 PM EDT Attending Staff Admission Documentation I certify that the patient requires: [X] inpatient care status due to: Acute hypoxemic respiratory failure and respiratory compromise requiring evaluation and monitoring every 4 hours I have examined the patient myself on 04/09/2022 and reviewed all labs and studies personally. Please see Dr. Salazar's documentation for details of the patient history of presentation and data. I have discussed, reviewed and agree with the documented history with ROS, physical findings, labs/studies, assessment and plan of care. 66-year-old male with history of COPD and emphysematous disease, prior left pneumothorax treated with chest tube, and DVT/PE on apixaban here with acute onset dyspnea and rigors, found to have left-sided pneumonia and sepsis Patient generally clinically stable and subjectively improved after initial treatments in the emergency department. Meets sepsis criteria for heart rate and respiratory rate. 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 We will check sputum culture and respiratory pathogen panel. Given some GI distress earlier this morning, will also check urinary Legionella. Given severe structural lung disease, will continueZosyn and add doxycycline due to history of COPD and for atypical coverage. We will continue steroids, scheduled duo nebs, incentive spirometry, and flutter. Pulmonology is aware of the patient's admission. Patient does report some hemoptysis. He has a history of PE and is on apixaban. He does note that occasionally he skips a dose of apixaban here and there, but thinks he has not missed a dose in the past few days. His EKG does have an S1Q3T3 which was also present on his EKG in 2019 during his acutePE. Unclear if this conduction change has resolved in the interim given lack of EKG during the interval. However, he is normotensive, without signs or symptoms of right heart failure, and troponin isnegative. We will continue his apixaban, check an apixaban level, and continue to monitor. We will hold on CTA at this time. Lastly, given his obesity, I added on a hemoglobin A1c which returned elevated at 6.0. Would consider discharge on metformin. Attila Daniel MD documented in this encounter ED Notes * Megan Martinez RN - 04/09/2022 5:01 PM EDT Transfer via stretcher to [facility]. * Megan Martinez RN - 04/09/2022 4:46 PM EDT Meal provided. * Megan Martinez RN - 04/09/2022 4:28 PM EDT Report to Christa PRECIADO. * Megan Martinez RN - 04/09/2022 1:[address] Daniel at bedside to assess pt for admission. * Megan Martinez RN - 04/09/2022 1:[address] Campbell at bedside to review CT results. * Megan Martinez RN - 04/09/2022 1:00 PM EDT Hospital Medicine at bedside to assess pt for admission. * Megan Martinez RN - 04/09/2022 12:[address] via stretcher. * Megan Martinez RN - 04/09/2022 11:[address] Campbell at bedside to reassess pt. * Megan Martinez RN - 04/09/2022 11:[address] Giordano a bedside to reassess pt. * Megan Martinez RN - 04/09/2022 9:30 AM EDT CXR at bedside. * Megan Martinez RN - 04/09/2022 9:[address] Campbell at bedside to assess pt. * Rosendo Giordano MD - 04/09/2022 8:48 AM EDT ED Resident Note HPI: Jeremiah Savage is a 66 y.o. male who presents to the Emergency Department with shortness of breath since this morning. Patient states he was in his usual state of health yesterday evening. He woke upthis morning around 0200 and was feeling very sweaty. He started coughing more several hours later,productive of phlegm with traces of blood. He then developed pain to his bilateral chest he says fee ls worse with breathing and feels similar to prior bouts of pneumonia. He called EMS secondary to this shortness of breath and pain with breathing and was found to have an oxygen saturation in the high 70% range. He was then transported to the ED. On initial assessment he endorses shortness of breath as well as this bilateral chest tightness. Pt was seen under the supervision of an attending physician. Review of Systems Pertinent positives and negatives are included in the HPI, otherwise at least ten systems were reviewed and negative. Past Medical and Surgical Histories, Social History, Medications, Allergies were reviewed in the chart. Physical Exam General: Alert, oriented, speaking in full sentences although tachypneic HEENT: Normocephalic/atraumatic Neck: Trachea midline Cardiovascular: Tachycardia Pulmonary: Diffuse wheeze bilaterally. Abdomen: Soft, nondistended, no TTP, no rebound/guarding Skin: [place], warm, dry Extremities: No deformities. Neuro: CN II-XII grossly intact bilaterally. Psych: Normal mood and thought pattern. ED Course: I have reviewed labs and imaging, images and available reports, and they are significant for: XR Chest One View (Results Pending) ED Course as of 04/09/22 1122 [place] Apr 09, 2022 1122 paged [phone] Re-assessed patient. Is speaking in full sentences on 3L NC, appears improved from prior, still with mild wheeze Assessment and Plan: 66 y.o. male presents to the emergency department with shortness of breath since this morning. My initial assessment is notable for a male patient with a significant increase in work of breathing whohas an oxygen saturation in the high 80s to low 90s on 6 L by nasal cannula. His physical exam is pertinent for diffuse wheezing bilaterally. Patient was given duo nebs, steroids, and ceftriaxone forCOPD exacerbation with likely purulent sputum production initially. Chest imaging notable for left lower lung airspace disease. Believe there may be a component of pneumonia superimposed on COPD. Antibiotics were broadened to treat the patient for sepsis. On reevaluation his work of breathing had improved and he was able to have his supplemental oxygen decreased to 3 L. He was still wheezy so additional duo nebs were given. Hospital medicine was consulted for admission and the patient will be admitted to their service for further evaluation and management. Rosendo Giordano MD Resident 04/09/22 [id number] Associated attestation - Juan Campbell DO - 04/09/2022 11:48 PM EDT ED ATTENDING ATTESTATION NOTE The patient was seen in conjunction with the resident physician. I have independently performed thekey portions of the history and physical exam. I have reviewed the nursing notes, vital signs, and all diagnostic studies personally including labs, imaging studies and EKGs. I have discussed the details of the case with the resident and agree with the assessment and plan as described in the resident note unless noted otherwise. Brief Summary: Patient is a 66-year-old male with history of COPD and prior pneumothorax presentingto the emergency department with acute hypoxic respiratory failure and respiratory distress. Patient states that he was feeling fine yesterday and went out to [place] with friends. He woke this morninggasping for air and complaining of rigors. Symptoms did not improve throughout the morning and patient states that he did not know if he was going to make it to the hospital. In transport patient wasfebrile to 39.4 and hypoxic on 4 L nasal cannula into the mid 80s. On arrival the patient was critically ill requiring multiple nebulizer treatments, IV fluid resuscitation, antibiotics, magnesium, corticosteroids for hypoxic respiratory failure. Over approximately 60 minutes the patient had significant improvement. X-ray showed left-sided interstitial process which we believed to be pneumonia. There was mention of a pneumothorax. I did not see the pneumothorax on the x-ray and performed a bedside ultrasound which revealed good lung sliding bilaterally even atthe apex and anterior chest while lying supine. Given the patient's probability of going on BiPAP which could cause complications if a pneumothorax was present I ordered a CT scan which did not reveal pneumothorax. Patient continued to improve throughout his several hours in the emergency department. He is being admitted ISCU status to hospital medicine. Patient states that he feels much better than when he came in. Patient signed out to Dr. Xie pending bed availability. CRITICAL CARE ADDENDUM: I spent a total of 60 minutes of critical care time managing the patient's presentation with hypoxic respiratory failure with respiratory distress. There is potential end-organ injury including respiratory collapse, cardiovascular collapse, and . The patient's illness has required my direct bedside presence for the time noted above. This time includes management of hypoxia, severe tachycardia, increased respiratory effort, discussion with consultants, review of the patient's prior studies and medical record, interpretation of electronic data, serial bedside clinical reassessments to ensure response to treatment, but excludes any procedures as noted above. Juan Campbell DO [employer] [facility] Emergency Medicine Final Assessment: Hypoxia Pneumonia Respiratory distress with tachypnea History of COPD documented in this encounter Miscellaneous Notes * Care Management Discharge - Hina Hogue RN - 2022 11:57 AM EDT CARE MANAGEMENT FINAL DISCHARGE NOTE Chart reviewed, care reviewed with primary team and at interdisciplinary rounds. Patient is medically ready for discharge to Home. Needs for Transition of Care: Plan for discharge is: Home w/o Services Outpatient Agency/Support Group Needs: None Agency Referrals & Follow-up Care: PCP after discharge. Recommendations and follow-up appointments are noted in After Visit Summary. Transportation: family or friend will provide *Brother Wheelchair van/Ambulance? No Functional status prior to admission: Independent Home Environment: Others in the home: child(blanca), adult (Daughter Heidi Rowland [phone]). Current Living Arrangements: home/apartment/condo. Accessibility Concerns: . Current Functional Ability: Independent DME used at home: Walker if needed, does not use currently DME Needed at Discharge: None Patient is insured through: Primary Insurance: MEDICARE Payor: MEDICARE / Plan: MEDICARE PART A & B / Product Type: *No Product type* / Secondary Insurance: [employer] Prescription Coverage: Yes This plan was formulated with input from patient and team. All are in agreement with plan. I have verbally reviewed Medicare Discharge Rights with patient. Patient verbalizes understanding of right to appeal this discharge if feeling not medically ready. Offered a copy of this letter. Hina Hogue RN, BSN [employer] - Medicine Office of Care Management Office: Pager: [phone] * Plan of Care - Christina Cuevas RN - 2022 7:59 AM EDT OUTCOME EVALUATION NOTE: OUTCOME SUMMARY: Pt A+Ox4 VSS on 2L NC OOB independently Meds per MAR Assessment as filed. PLAN MOVING FORWARD: Reviewed d/c instructions with patient and family. No further questions at this time. INDIVIDUALIZED FALL PREVENTION INTERVENTIONS: Patient-specific fall risk factors per assessment: [current deficits]: Independent Assistance [level of assistance required for transfers and ambulation]: Independent Supervision [direct monitoring required during toileting and ADLs]: Independent Surveillance [continuous indirect monitoring]: Masimo, call gao, hourly room near unit station, hourly rounding with needs addressed. Patient-specific fall prevention interventions for sensory deficits provided, if applicable: [X] N/A CARE PLAN GOAL OUTCOME EVALUATION: * Plan of Care - Katy Klein RN - 2022 3:58 AM EDT OUTCOME EVALUATION NOTE: OUTCOME SUMMARY: Patient A&O x4. VSS on 1L NC. Meds given as ordered. Denies pain this shift. Patient resting comfortably with eyes closed, respirations even and unlabored. Bed low, wheels locked. Call gao within reach. No needs or concerns at this time. PLAN MOVING FORWARD: Transitioned to PO Abx. Anticipated discharge today INDIVIDUALIZED FALL PREVENTION INTERVENTIONS: Patient-specific fall risk factors per assessment: [current deficits]: iv site Assistance [level of assistance required for transfers and ambulation]: independent Supervision [direct monitoring required during toileting and ADLs]: independent Surveillance [continuous indirect monitoring]: rounding, renata, bed near nurses station * Plan of Care - Christina Cuevas RN - 04/13/2022 10:21 AM EDT OUTCOME EVALUATION NOTE: OUTCOME SUMMARY: Pt A+Ox4 VSS on 2L NC OOB independently BP 154/103, MD notified. BP improved to 134/97 at recheck. Meds per DEC Assessment as filed. PLAN MOVING FORWARD: Convert to PO ABX, d/c planning. INDIVIDUALIZED FALL PREVENTION INTERVENTIONS: Patient-specific fall risk factors per assessment: [current deficits]: Independent Assistance [level of assistance required for transfers and ambulation]: Independent Supervision [direct monitoring required during toileting and ADLs]: Independent Surveillance [continuous indirect monitoring]: Masimo, call gao, hourly room near unit station, hourly rounding with needs addressed. Patient-specific fall prevention interventions for sensory deficits provided, if applicable: [X] N/A CARE PLAN GOAL OUTCOME EVALUATION: * Plan of Care - Kyra Wong RN - 04/13/2022 3:00 AM EDT OUTCOME EVALUATION NOTE: OUTCOME SUMMARY: [id number] A&O x4. VSS on 2L NC. No complaints of pain. Takes pills whole. Pt is continent of B&B, urinal within reach. Indep OOB. Call gao within reach. Purposeful rounding. PLAN MOVING FORWARD: IV & PO ABX Duonebs and Prednisone INDIVIDUALIZED FALL PREVENTION INTERVENTIONS: Patient-specific fall risk factors per assessment: [current deficits]: Indep Assistance [level of assistance required for transfers and ambulation]: Indep Supervision [direct monitoring required during toileting and ADLs]: Indep Surveillance [continuous indirect monitoring]: Masimo, purposeful rounding Patient-specific fall prevention interventions for sensory deficits provided, if applicable: [X] N/A * Plan of Care - Thania Lepe RN - 04/12/2022 4:52 PM EDT OUTCOME EVALUATION NOTE: OUTCOME SUMMARY: Pt AOx4 , VSS and the pt is on 2L NC , ambulating independently PLAN MOVING FORWARD: Cont abx , possibly transitioning to PO abx , cont duonebs , O2 supplementation INDIVIDUALIZED FALL PREVENTION INTERVENTIONS: Patient-specific fall risk factors per assessment: [current deficits]: Medical Equipment Assistance [level of assistance required for transfers and ambulation]: Independent Supervision [direct monitoring required during toileting and ADLs]: Eyes on Surveillance [continuous indirect monitoring]: Masimo, call light and personal items are within reach , purposeful hourly rounding Patient-specific fall prevention interventions for sensory deficits provided, if applicable: [X] N/A CARE PLAN GOAL OUTCOME EVALUATION: * Plan of Care - Kyra Wong RN - 04/12/2022 2:05 AM EDT OUTCOME EVALUATION NOTE: OUTCOME SUMMARY: [id number] A&O x4. VSS on 2L NC. No complaints of pain. Takes pills whole. Pt is continent of B&B, urinal within reach. Indep OOB. Call gao within reach. Purposeful rounding. ADDM pt complained of heartburn during shift, provider notified, PRN Protonix given with therapeutic effect. PLAN MOVING FORWARD: IV & PO ABX Duonebs and Prednisone INDIVIDUALIZED FALL PREVENTION INTERVENTIONS: Patient-specific fall risk factors per assessment: [current deficits]: Indep Assistance [level of assistance required for transfers and ambulation]: Indep Supervision [direct monitoring required during toileting and ADLs]: Indep Surveillance [continuous indirect monitoring]: Masimo, purposeful rounding Patient-specific fall prevention interventions for sensory deficits provided, if applicable: [X] N/A * Plan of Care - Thania Lepe RN - 04/11/2022 7:41 PM EDT OUTCOME EVALUATION NOTE: OUTCOME SUMMARY: Pt AOX4, pt has a cough with brownish red sputum, vitals stable PLAN MOVING FORWARD: Continue duonebs, abx INDIVIDUALIZED FALL PREVENTION INTERVENTIONS: Patient-specific fall risk factors per assessment: [current deficits]: medical equipment Assistance [level of assistance required for transfers and ambulation]: pt ambulates independently Supervision [direct monitoring required during toileting and ADLs]: eyes on Surveillance [continuous indirect monitoring]: masimo, call light and personal items within reach Patient-specific fall prevention interventions for sensory deficits provided, if applicable: [X] N/A CARE PLAN GOAL OUTCOME EVALUATION: * Care Management - Hina Hogue RN - 04/11/2022 4:04 PM EDT OFFICE OF CARE MANAGEMENT PROGRESS NOTE LOS: Hospital Day 2 days Chart reviewed, care reviewed with primary team and at interdisciplinary rounds. Patient continues to meet inpatient level of care related to: acute respiratory compromise and/or hypoxia requiring assessment every 4 hours and the ability to respond immediately to the patient's need. Functional status prior to admission: Independent Home Environment: Others in the home: child(blanca), adult (Daughter Heidi Rowland [phone]). Current Living Arrangements: home/apartment/condo. Accessibility Concerns: . Current Functional Ability: Independent DME used at home: None DME Needed at Discharge: TBD Patient is insured through: Primary Insurance: MEDICARE Payor: MEDICARE / Plan: MEDICARE PART A & B / Product Type: *No Product type* / Secondary Insurance: [employer] [place] Last Physical Therapy Recommendation: home with None Last Occupational Therapy Recommendation: with Plan for discharge is: Home w/o Services Outpatient Agency/Support Group Needs: None Agency Referrals: Not Applicable Transportation: family or friend will provide Barriers to discharge: Discharge planning Plan going forward: Patient continues on IV ABX for PNA/Sepsis. Pulmonology recommendations pendingat this time. Current oxygen requirement of 2-3L NC. Unable to determine at this time if oxygen or OPAT will be needed at discharge. Care Management will continue to follow and assist with discharge planning and coordination of care as indicated. Anticipated Date of Discharge: 04/13/2022 Hina Hogue RN, BSN [employer] - Medicine Office of Care Management Office: Pager: [phone] * Consult Note - Nini Ivy RPH - 04/10/2022 11:16 AM EDT TelePharmacy Home Medication List Update for Medication Reconciliation 04/10/22 11:16 AM Jeremiah Savage 1955 No Known Allergies ??? Person Interviewed: patient ??? Quality of Interview/accuracy of medication list: good ??? Sources used to compile medication list: [x] Epic medication list [x] SureScripts [] PCP/Specialist list [] Retail pharmacy [] Patient list [] MAR [] Other ??? Changes made to home medication list: o Additions: - Flovent 220 1 puff BID - Ibuprofen 200mg PO daily o Deletions: - Augmentin - Prednisone o Changes: - none ??? Additional Notes: none ??? Recommended changes: none The home medication list is now updated to the best of my knowledge and is ready to be reconciled by the provider. Please contact the TelePharmacy Medication Reconciliation Pharmacist at for any questions. Nini Ivy RPH * Plan of Care - Britt Navas RN - 04/10/2022 7:42 AM EDT OUTCOME EVALUATION NOTE: OUTCOME SUMMARY: Pt A&Ox4. VSS on RA. Pt denies pain. PO and IV abx given. Phosphorus critically low at 1.1. MD notified and phosphorus powder ordered. IV Magnesium sulfate administered. VAP therapy performed by pt. Pt has productive cough with brown/red sputum. Assessment as filed. Safety maintained. Will continue to monitor. PLAN MOVING FORWARD: Abx Duonebs VAP therapy VS q4h INDIVIDUALIZED FALL PREVENTION INTERVENTIONS: Bed alarm set, wheels locked and bed in lowest position, side rails up x2, call gao/personal itemswithin reach, non-skid socks when OOB, purposeful hourly rounding, room near nurse's station Patient-specific fall risk factors per assessment: [current deficits]: IV site, oxyge tubing, generalized weakness Assistance [level of assistance required for transfers and ambulation]: SBA Supervision [direct monitoring required during toileting and ADLs]: Eyes on Surveillance [continuous indirect monitoring]: Masimo on Patient-specific fall prevention interventions for sensory deficits provided, if applicable: [X] N/A CPG GOAL OUTCOME EVALUATION: * Plan of Care - Fazal Juarez RN - 04/10/2022 4:27 AM EDT OUTCOME EVALUATION NOTE: OUTCOME SUMMARY: Patient remains on IV and PO antibiotics. Tolerating 2LNC while resting, down from 6LNC. Patient sputum sample sent to lab at start of shift. Patient otherwise stable and VS within acceptable limits. PLAN MOVING FORWARD: Continue current treatment regiment, wean O2 as tolerated. Discharge when medically ready. INDIVIDUALIZED FALL PREVENTION INTERVENTIONS: Patient-specific fall risk factors per assessment: [current deficits]: Weakness, increased oxygen needs. Assistance [level of assistance required for transfers and ambulation]: Standby assist. Supervision [direct monitoring required during toileting and ADLs]: Patient may be left unsupervised and requires very little assistance with ADLs. Surveillance [continuous indirect monitoring]: Purposeful rounding and continuous pulse oximetry (Masimo). Patient-specific fall prevention interventions for sensory deficits provided, if applicable: [X] N/A CARE PLAN GOAL OUTCOME EVALUATION: * Consult Note - Cristian Carolina Jr., MD - 04/09/2022 8:56 PM EDT Pulmonary Inpatient Consultation Reason for Consult: I was asked by Dr. Daniel to evaluate this patient for acute hypoxemia, probablepneumonia. I have personally interviewed and examined the patient, and reviewed his radiographic studies and laboratory data. HPI: Mr. Savage is a 66 y.o. male currently hospitalized for pneumonia (organism not specified) with acute hypoxemia requiring increased oxygen supplementation. He has a known history of COPD (emphysema subtype) with history of L pneumothorax from a ruptured bleb in 2019. He had pulmonary embolismin 2019, treated with anticoagulation. He presents with acute onset dyspnea today (awake feeling ill, with fevers, shaking chills. Productive cough with shortness of breath. Presented to the ED, admitted to Hospital Medicine for further evaluation, management, and treatment. Patient Active Problem List Diagnosis Code ??? Pulmonary embolism I26.99 ??? Panlobular emphysema J43.1 ??? Right upper lobe pulmonary nodule R91.1 ??? Stage 2 moderate COPD by GOLD classification J44.9 ??? Exercise hypoxemia R09.02 ??? Shortness of breath R06.02 Allergies Patient has no known allergies. Medications ??? apixaban (Eliquis) tablet 5 mg ??? [START ON 04/10/2022] pantoprazole EC (Protonix) tablet 40 mg ??? sodium chloride 0.9 % (flush) (BD PosiFlush Normal Saline 0.9) flush 5 mL ??? sodium chloride 0.9 % (flush) (BD PosiFlush Normal Saline 0.9) flush 5-20 mL ??? lidocaine (Xylocaine) 1% (10 mg/mL) injection 3 mg ??? bisacodyL (Dulcolax) suppository 10 mg ??? senna-docusate (Pericolace) 8.6-50 mg per tablet 2 tablet ??? acetaminophen (Tylenol) tablet 650 mg ??? ondansetron (Zofran) tablet 4-8 mg OR ondansetron (pf) (Zofran) (2 mg/mL) injection 4-8 mg ??? melatonin tablet 3 mg ??? piperacillin-tazobactam (Zosyn) 3.375 g vial attach to sodium chloride 0.9% 50 mL Mini-Bag Plus ??? doxycycline monohydrate (Monodox) capsule 100 mg ??? ipratropium-albuteroL (Duoneb) 0.5 mg-3 mg(2.5 mg base)/3 mL nebulizer solution 3 mL ??? albuteroL (Proventil) nebulizer solution 2.5 mg ??? [START ON 04/10/2022] predniSONE (Deltasone) tablet 40 mg Social History Tobacco Use ??? Smoking status: Former Smoker Packs/day: 1.50 Years: 40.00 Pack years: 60.00 Types: Cigarettes Quit date: 11/17/2017 Years since quittin.3 ??? Smokeless tobacco: Never Used Vaping Use ??? Vaping Use: Never used Substance Use Topics ??? Alcohol use: Not Currently Alcohol/week: 4.0 standard drinks Types: 4 Cans of beer per week ??? Drug use: Never Family History Problem Relation Age of Onset ??? Chronic Obstructive Pulmonary Disease Mother ??? Aneurysm Mother ??? Heart Disease Father ??? Hypertension Father ??? Cancer Paternal Uncle ??? Leukemia Paternal Uncle Review of Systems A complete review of systems was obtained. Positives are noted in the HPI. All remaining systems are negative. Physical Exam General Mild acute respiratory distress Vitals 37.0 95 22 109/82 93% on 3L NC HEENT PER, EOMI Lungs Tachypneic, diminished airflow, expiratory delay Cardiac RR Abdomen Soft, BS(+) Extremities No C/C/E Neuro Non-focal Current Respiratory Support 3L NC Objective Data Laboratory Lab Results Component Value Date WBC 12.2 (H) 04/09/2022 Hemoglobin 14.6 04/09/2022 Hematocrit 44.2 04/09/2022 Platelets 289 04/09/2022 Lab Results Component Value Date Sodium 137 04/09/2022 Potassium 4.1 04/09/2022 Chloride 103 04/09/2022 CO2 21 (L) 04/09/2022 BUN 16 04/09/2022 Creatinine 0.99 04/09/2022 Radiography 04/09/2022 CXR/CCT showing centrilobular emphysema with increased interstitial abnormalities in the left base, consistent with pneumonia Cardiac Studies 11/2019 ECHO normal LV size and function. LVEF 65%. No wall motion abnormalities. Pulmonary Function Testing 04/29/2020 FEV1 1.98L (61%), FVC 3.84L (90%), FEV1/FVC 0.52; DLCO 33% Assessment / Recommendations Acute respiratory process, suspect pneumonia, superimposed upon COPD (FEV1 61%) and severe gas diffusion impairment (out of proportion of degree of COPD.) Currently treating with empiric antibiotics (doxycycline, pip/tazo) Sputum sample to help identify dominant organism and narrow antibiotic spectrum. Agree with corticosteroids for now, can wean as airflow improves. Continue bronchodilators as is being done. Thanks for consulting! Will follow. Cristian Carolina MD Pulmonary/Critical Care Medicine * Initial Assessments - Betty Andrea RN - 04/09/2022 12:29 PM EDT Office of Care Management Initial Assessment Betty Andrea RN reviewed record. Source of Information: Chart Review Reason for Hospitalization: Shortness of breath Covid Vaccination Status: Needs assessment Last COVID test: -In Process Past medical History: Past Medical History: Diagnosis Date ??? COPD (chronic obstructive pulmonary disease) ??? Emphysema of lung ??? Fractures right ankle fractureas child ??? GERD (gastroesophageal reflux disease) ??? Hypertension ??? Lung disease ??? Sleep apnea Hospitalizations Within the Past 30 Days: no previous admission in last 30 days Current Decision-Making Capacity: Self Advance Care Planning: -Advanced Directive: No, need to discuss If AD's have not been completed rodger Rowland [phone] would be surrogate decision maker per [place] surrogate decision making law. (Only good for 180 days) Any patient receiving care at [facility] must abide by [place] law. The hierarchy for surrogate decision making is: (a) Patient???s spouse, or civil union partner or common law spouse unless there is a divorce proceeding, separation agreement, or restraining order limiting that person???s relationship with the patient. (b) Any adult son or daughter of the patient. (c) Either parent of the patient. (d) Any adult brother or sister of the patient. (e) Any adult grandchild of the patient. (f) Any grandparent of the patient. (g) Any adult aunt, uncle, niece, or nephew of the patient. (h) A close friend of the patient. (i) The agent with financial power of contracts attorney or a conservator appointed in accordance with RSA 464-A. (j) The guardian of the patient???s estate. Current Coping/Education/Information Needs: Needs assessment Current Functional Ability: Independent Functional Status Prior to Admission: Independent Prior ADLs & IADLs: Independent with all ADLs & IADLs Home Environment: Others in the home: child(blanca), adult (Daughter Heidi Rowland [phone]). Current Living Arrangements: home/apartment/condo. Accessibility Concerns: None Resource / Environmental Concerns: Needs assessment Current DME: Has used [facility] for respiratory needs in the past. Home Address listed as: [phone] [place] [id number] Social & Family Supports: Extended Emergency Contact Information Primary Emergency Contact: HEIDI ROWLAND Address: [phone] [place] [address] [place] Relation: Child Current Care Provided by: self Provides Primary Care For: no one Caregiver if needed: none Quality of Family relationships: Needs assessment Community Resources being provided currently: none Behavioral Health History: None Substance Use/Abuse listed: Social History Tobacco Use Smoking Status Former Smoker ??? Packs/day: 1.50 ??? Years: 40.00 ??? Pack years: 60.00 ??? Types: Cigarettes ??? Quit date: 11/17/2017 ??? Years since quittin.3 Smokeless Tobacco Never Used Other Pertinent/Service Specific Information: None Health/Prescription Coverage: Primary Insurance: MEDICARE Payor: MEDICARE / Plan: MEDICARE PART A & B / Product Type: *No Product type* / Secondary Insurance: [facility] [place] Prescription Coverage: Yes Preferred Pharmacy: [id number] - [facility], [place] - [id number] [facility] [facility] [address] [facility] [address] [place] Status: Patient is a : Needs assessment Primary Care Provider: Susannah Perez MD [phone] Patient/Caregiver Goals of Treatment: Improve ease of breathing Potential Needs for Transition of Care: none Agency Referrals: N/A Transportation: Daughter ? Transportation Anticipated: family or friend will provide Concerns to be Addressed: Needs assessment Assessment: Patient is admitted to Hospital Medicine service for shortness of breath. Plan: A member of the Care Management team will continue to monitor progress, follow for continuityof care and assist with transition of care planning. * ED Triage - Megan Martinez RN - 04/09/2022 8:38 AM EDT Pt rec'd via EMS to ED23 d/t sob. Per EMS, was saturating in the 70's on their arrival. He rec'd a Duoneb and O2 via NC was initiated. Temp en route was reported 39.4c. Upon arrival, the pt was w/ a saturation of 87% and FiO2 increased from 3L to 6L. Duonebs x3 to be administered. Dr Giordano at bedside to assess pt. CCM applied. Tachycardic; a&ox3; w/p/d. EKG at bedside. documented in this encounter Plan of Treatment Upcoming Encounters Date Type Department Care Team (Late st Contact Info) Description 05/02/2024 11:00 AM EDT Office [place] [address] Cristian Carolina Jr., MD [facility] [place] [address] documented as of this encounter Procedures Procedure Name Priority Date/Time Associated Diagnosis Comments HEMOGRAM Routine 2022 5:14 AM EDT DIFFERENTIAL, AUTOMATED Routine 2022 5:14 AM EDT HC VENIPUNCTURE Routine 2022 5:14 AM EDT HC PHOSPHORUS, SERUM Routine 2022 5:14 AM EDT BASIC METABOLIC PANEL (NON-FASTING) Routine 2022 5:14 AM EDT HEMOGRAM Routine 04/13/2022 3:57 AM EDT DIFFERENTIAL, AUTOMATED Routine 04/13/2022 3:57 AM EDT HC VENIPUNCTURE Routine 04/13/2022 3:57 AM EDT HC PHOSPHORUS, SERUM Routine 04/13/2022 3:57 AM EDT BASIC METABOLIC PANEL (NON-FASTING) Routine 04/13/2022 3:57 AM EDT HEMOGRAM Routine 04/12/2022 6:11 AM EDT DIFFERENTIAL, AUTOMATED Routine 04/12/2022 6:11 AM EDT HC CBC,PLT & AUTO DIFF Routine 6:11 AM EDT HC PHOSPHORUS, SERUM Routine 04/12/2022 6:11 AM EDT BASIC METABOLIC PANEL (NON-FASTING) Routine 04/12/2022 6:11 AM EDT HEMOGRAM Routine 04/11/2022 6:05 AM EDT DIFFERENTIAL, AUTOMATED Routine 04/11/2022 6:05 AM EDT HC VENIPUNCTURE Routine 04/11/2022 6:05 AM EDT PHOSPHORUS Routine 04/11/2022 6:05 AM EDT BASIC METABOLIC PANEL (NON-FASTING) Routine 04/11/2022 6:05 AM EDT HEMOGRAM Routine 04/10/2022 5:09 AM EDT DIFFERENTIAL, AUTOMATED Routine 04/10/2022 5:09 AM EDT HC VENIPUNCTURE Routine 04/10/2022 5:09 AM EDT PHOSPHORUS Routine 04/10/2022 5:09 AM EDT MAGNESIUM Routine 04/10/2022 5:09 AM EDT BASIC METABOLIC PANEL (NON-FASTING) Routine 04/10/2022 5:09 AM EDT HC SPUTUM CULTURE Routine 04/09/2022 7:0 2 PM EDT HC APIXABAN LEVEL Routine 04/09/2022 3:3 0 PM EDT HC LEGIONELLA URINARY ANTIGEN Routine 04/09/2022 3:10 PM EDT URINALYSIS WITH REFLEX CULTURE STAT 04/09/2022 3:10 PM EDT RESPIRATORY PANEL PCR Routine 04/09/2022 1:[address] CHEST WO CONTRAST (GENERIC) STAT 04/09/2022 12:43 PM EDT US THORACIC (SYNC) Routine 04/09/2022 11 :23 AM EDT HC BLOOD CULTURE- STAT 04/09/2022 9:5 0 AM EDT XR CHEST ONE VIEW STAT 04/09/2022 9:3 5 AM EDT COVID-19 PCR STAT 04/09/2022 9:25 AM EDT HC BLOOD CULTURE- STAT 04/09/2022 9:2 5 AM EDT BLOOD GAS 2 VENOUS Routine 04/09/2022 9: 01 AM EDT HEMOGRAM STAT 04/09/2022 8:55 AM EDT DIFFERENTIAL, AUTOMATED STAT 04/09/2022 8:55 AM EDT HC CBC,PLT & AUTO DIFF STAT 8:55 AM EDT HC TROPONIN T STAT 04/09/2022 8:55 AM EDT PRO-BRAIN NATRIURETIC PEPTIDE STAT 04/09/2022 8:55 AM EDT HEMOGLOBIN A1C STAT 04/09/2022 8:55 AM EDT COMPREHENSIVE METABOLIC PANEL (NON-FASTING) STAT 04/09/2022 8:55 AM EDT EKG 12-LEAD STAT 04/09/2022 8:41 AM EDT documented in this encounter Results * (ABNORMAL) Differential, Automated (2022 5:14 AM EDT) Neutrophils % 59.9 % [facility] Neutr Abs (ANC) 7.25(H) 1.70 - 6.10 x10(3)/mc L [facility] Lymphocytes % 24.4 % [facility] Lymphocytes Abs 3.0 0.9 - 3.2 x10(3)/mc L [facility] Monocytes % 8.0 % [facility] Monocyte Abs 1.0(H) 0.3 - 0.9 x10(3)/mc L [facility] Eosinophils % 3.1 % [facility] Eosinophils Abs 0.4 0.0 - 0.4 x10(3)/mc L [facility] Basophils % 0.6 % [facility] Basophils Abs 0.1 0.0 - 0.1 x10(3)/mc L [facility] Immature Gran % 4.00 % [facility] Comment: Immature granulocytes(IG's)percentage and absolute count will include metamyelocytes, myelocytes, and promyelocytes. Blood smears from CBCs yielding IG's will be scanned manually for concordance. If this scan disagrees with the automated IG or if promyelocytes are noted, a manual differential will be performed. Nohemi Gran Abs 0.48(H) 0.00 - 0.04 x10(3)/ L [facility] Blood 2022 5:14 AM EDT 2022 5:26 AM EDT Narrative Resulting Agency Comment Spec In Lab Gen Salazar MD HEMATOLOGY ORDERABLE S Performing Organization Address City/State/[facility] Co de Phone Number [facility] [place] [address] * (ABNORMAL) Hemogram (2022 5:14 AM EDT) WBC 12.1(H) 4.0 - 9.5 x10(3)/[facility] RBC 4.46(L) 4.58 - 5.54 x10(6)/[facility] Hemoglobin 13.1(L) 13.7 - 16.5 g/dL [facility] Hematocrit 39.0(L) 40.5 - 48.5 % [facility] MCV 87.4 82.9 - 93.1 fL [facility] MCH 29.4 27.5 - 32.1 pg [facility] MCHC 33.6 32.0 - 35.7 g/dL [facility] Platelets 284 145 - 357 x10(3)/[facility] RDWSD 40.5 36.0 - 45.0 fL [facility] RDWCV 12.7 11.4 - 13.8 % [facility] MPV 8.6 7.6 - 12.9 fL [facility] nRBC % Auto 0.0 % [facility] nRBC Abs Auto 0.000 0.000 - 0.000 x10(3)/mcL [facility] Blood 2022 5:14 AM EDT 2022 5:26 AM EDT Narrative Resulting Agency Comment Spec In Lab Gen Salazar MD HEMATOLOGY ORDERABLE S Performing Organization Address City/[facility]/ZIP Co de Phone Number [facility] [place] [address] * Phosphorus (2022 5:14 AM EDT) Phosphorus 4.1 2.5 - 4.5 mg/dL [facility] Blood 2022 5:14 AM EDT 2022 5:26 AM EDT Narrative Resulting Agency Comment Spec In Lab Christina Victor MD CHEMISTRY ORDERAB LES Performing Organization Address City/[facility]/ZIP Co de Phone Number [facility] [place] [address] * (ABNORMAL) Basic Metabolic Panel (non-fasting) (2022 5:14 AM EDT) Glucose Lvl 106 65 - 199 mg/dL [facility] Comment:Diabetes: >=200 mg/d L plus symptoms BUN 22(H) 10 - 20 mg/dL [facility] Creatinine 1.00 0.80 - 1.50 mg/dL [facility] Sodium 137 135 - 145 mmol/L [facility] Potassium 4.4 3.5 - 5.0 mmol/L [facility] Comment: Please note: ??Patients with WBC >100,000 may have falsely elevated Potassium levels. ??For accurate Potassium quantification in these patients send serum separator tube (gold top) for subsequent determinations. ??Contact the Clinical Chemistry Laboratory if there are any questions. Chloride 102 98 - 107 mmol/L [facility] CO2 23 22 - 31 mmol/L [facility] Anion Gap 12 5 - 15 mmol/L [facility] Calcium 8.6 8.5 - 10.5 mg/dL [facility] Estimated GFR 81 >=60 mL/min/1. 73 m?? [facility] Comment: This patient's estimated GFR [...] In Lab Attila Daniel MD CHEMISTRY ORDERABLES [facility] [place] [address] * (ABNORMAL) Differential, Automated (04/13/2022 3:57 AM EDT) Neutrophils % 68.8 % [facility] Neutr Abs (ANC) 7.65(H) 1.70 - 6.10 x10(3)/mc L [facility] Lymphocytes % 19.6 % [facility] Lymphocytes Abs 2.2 0.9 - 3.2 x10(3)/mc L [facility] Monocytes % 6.6 % [facility] Monocyte Abs 0.7 0.3 - 0.9 x10(3)/mc L [facility] Eosinophils % 1.6 % [facility] Eosinophils Abs 0.2 0.0 - 0.4 x10(3)/[facility] Basophils % 0.4 % [facility] Basophils Abs 0.0 0.0 - 0.1 x10(3)/[facility] Immature Gran % 3.00 % [facility] Comment: Immature granulocytes(IG's)percentage and absolute count will include metamyelocytes, myelocytes, and promyelocytes. Blood smears from CBCs yielding IG's will be scanned manually for concordance. If this scan disagrees with the automated IG or if promyelocytes are noted, a manual differential will be performed. Nohemi Gran Abs 0.33(H) 0.00 - 0.04 x10(3)/[facility] Blood 04/13/2022 3:57 AM EDT 04/13/2022 4:19 AM EDT Narrative Resulting Agency Comment Spec In Lab Gen Salazar MD HEMATOLOGY ORDERABLE S [facility] [place] [address] * (ABNORMAL) Hemogram (04/13/2022 3:57 AM EDT) WBC 11.1(H) 4.0 - 9.5 x10(3)/[facility] RBC 4.11(L) 4.58 - 5.54 x10(6)/[facility] Hemoglobin 12.3(L) 13.7 - 16.5 g/dL [facility] Hematocrit 37.5(L) 40.5 - 48.5 % [facility] MCV 91.2 82.9 - 93.1 fL [facility] MCH 29.9 27.5 - 32.1 pg [facility] MCHC 32.8 32.0 - 35.7 g/dL [facility] Platelets 263 145 - 357 x10(3)/[facility] RDWSD 42.0 36.0 - 45.0 [facility] RDWCV 12.6 11.4 - 13.8 % [facility] MPV 8.8 7.6 - 12.9 [facility] nRBC % Auto 0.0 % [facility] nRBC Abs Auto 0.000 0.000 - 0.000 x10(3)/[facility] Blood 04/13/2022 3:57 AM EDT 04/13/2022 4:19 AM EDT Narrative Resulting Agency Comment Spec In Lab Gen Salazar MD HEMATOLOGY ORDERABLE S Performing Organization Address City/[facility]/ZIP Co de Phone Number [facility] [place] [address] * Phosphorus (04/13/2022 3:57 AM EDT) Phosphorus 4.1 2.5 - 4.5 mg/dL [facility] Blood 04/13/2022 3:57 AM EDT 04/13/2022 4:19 AM EDT Narrative Resulting Agency Comment Spec In Lab Christina Victor MD CHEMISTRY ORDERAB LES Performing Organization Address City/[facility]/ZIP Co de Phone Number [facility] [place] [address] * Basic Metabolic Panel (non-fasting) (04/13/2022 3:57 AM EDT) Glucose Lvl 153 65 - 199 mg/dL [facility] Comment:Diabetes: >=200 mg/d L plus symptoms BUN 18 10 - 20 mg/dL [facility] Creatinine 1.07 0.80 - 1.50 mg/dL [facility] Sodium 137 135 - 145 mmol/L [facility] Potassium 4.4 3.5 - 5.0 mmol/L [facility] Comment: Please note: ??Patients with WBC >100,000 may have falsely elevated Potassium levels. ??For accurate Potassium quantification in these patients send serum separator tube (gold top) for subsequent determinations. ??Contact the Clinical Chemistry Laboratory if there are any questions. Chloride 102 98 - 107 mmol/L [facility] CO2 28 22 - 31 mmol/L [facility] Anion Gap 7 5 - 15 mmol/L [facility] Calcium 8.5 8.5 - 10.5 mg/dL [facility] Estimated GFR 76 >=60 mL/min/1. 73 m?? [facility] Comment: This patient's estimated GFR [...] and symptoms in addition to eGFR. Blood 04/13/2022 3:57 AM EDT 04/13/2022 4:19 AM EDT Narrative Resulting Agency Comment Spec In Lab Attila Daniel MD CHEMISTRY ORDERABLES Performing Organization Address City/State/[facility] Co de Phone Number [facility] [place] [address] * (ABNORMAL) Differential, Automated (04/12/2022 6:11 AM EDT) Neutrophils % 73.1 % [facility] Neutr Abs (ANC) 10.58(H) 1.70 - 6.10 x10(3)/mc L [facility] Lymphocytes % 17.5 % [facility] Lymphocytes Abs 2.5 0.9 - 3.2 x10(3)/mc L [facility] Monocytes % 7.0 % [facility] Monocyte Abs 1.0(H) 0.3 - 0.9 x10(3)/[facility] Eosinophils % 1.2 % [facility] Eosinophils Abs 0.2 0.0 - 0.4 x10(3)/[facility] Basophils % 0.3 % [facility] Basophils Abs 0.0 0.0 - 0.1 x10(3)/[facility] Immature Gran % 0.90 % [facility] Comment: Immature granulocytes(IG's)percentage and absolute count will include metamyelocytes, myelocytes, and promyelocytes. Blood smears from CBCs yielding IG's will be scanned manually for concordance. If this scan disagrees with the automated IG or if promyelocytes are noted, a manual differential will be performed. Nohemi Gran Abs 0.13(H) 0.00 - 0.04 x10(3)/[facility] Blood 04/12/2022 6:11 AM EDT 04/12/2022 6:22 AM EDT Narrative Resulting Agency Comment Spec In Lab Gen Salazar MD HEMATOLOGY ORDERABLE S [facility] [place] [address] * (ABNORMAL) Hemogram (04/12/2022 6:11 AM EDT) WBC 14.5(H) 4.0 - 9.5 x10(3)/[facility] RBC 4.31(L) 4.58 - 5.54 x10(6)/[facility] Hemoglobin 12.5(L) 13.7 - 16.5 g/dL [facility] Hematocrit 38.0(L) 40.5 - 48.5 % [facility] MCV 88.2 82.9 - 93.1 fL [facility] MCH 29.0 27.5 - 32.1 pg [facility] MCHC 32.9 32.0 - 35.7 g/dL [facility] Platelets 264 145 - 357 x10(3)/[facility] RDWSD 41.4 36.0 - 45.0 [facility] RDWCV 12.7 11.4 - 13.8 % [facility] MPV 9.1 7.6 - 12.9 [facility] nRBC % Auto 0.0 % [facility] nRBC Abs Auto 0.000 0.000 - 0.000 x10(3)/[facility] Blood 04/12/2022 6:11 AM EDT 04/12/2022 6:22 AM EDT Narrative Resulting Agency Comment Spec In Lab Gen Salazar MD HEMATOLOGY ORDERABLE S Performing Organization Address [facility]/ZIP Co de Phone Number [facility] [place] [address] * Phosphorus (04/12/2022 6:11 AM EDT) Phosphorus 3.9 2.5 - 4.5 mg/dL [facility] Blood 04/12/2022 6:11 AM EDT 04/12/2022 6:22 AM EDT Narrative Resulting Agency Comment Spec In Lab Christina Victor MD CHEMISTRY ORDERAB LES Performing Organization Address City/[facility]/ZIP Co de Phone Number [facility] [place] [address] * (ABNORMAL) Basic Metabolic Panel (non-fasting) (04/12/2022 6:11 AM EDT) Glucose Lvl 107 65 - 199 mg/dL [facility] Comment:Diabetes: >=200 mg/d L plus symptoms BUN 17 10 - 20 mg/dL [facility] Creatinine 1.00 0.80 - 1.50 mg/dL [facility] Sodium 133(L) 135 - 145 mmol/L [facility] Potassium 4.6 3.5 - 5.0 mmol/L [facility] Comment: Please note: ??Patients with WBC >100,000 may have falsely elevated Potassium levels. ??For accurate Potassium quantification in these patients send serum separator tube (gold top) for subsequent determinations. ??Contact the Clinical Chemistry Laboratory if there are any questions. Chloride 100 98 - 107 mmol/L [facility] CO2 24 22 - 31 mmol/L [facility] Anion Gap 9 5 - 15 mmol/L [facility] Calcium 8.8 8.5 - 10.5 mg/dL [facility] Estimated GFR 82 >=60 mL/min/1. 73 m?? [facility] Comment: This patient's estimated GFR [...] and symptoms in addition to eGFR. Blood 04/12/2022 6:11 AM EDT 04/12/2022 6:22 AM EDT Narrative Resulting Agency Comment Spec In Lab Attila Daniel MD CHEMISTRY ORDERABLES [facility] [place] [address] * Phosphorus (04/11/2022 6:05 AM EDT) Phosphorus 3.3 2.5 - 4.5 mg/dL [facility] Comment:result rechecked-red Blood Venous Draw / Unknown 04/11/2022 6:05 AM EDT 04/11/2022 7:23 AM EDT Narrative Resulting Agency Comment Spec In Lab Fadi Chambers MD CHEMISTRY ORDERABLES [facility] [place] [address] * (ABNORMAL) Differential, Automated (04/11/2022 6:05 AM EDT) Neutrophils % 81.2 % [facility] Neutr Abs (ANC) 13.84(H) 1.70 - 6.10 x10(3)/[facility] Lymphocytes % 10.9 % [facility] Lymphocytes Abs 1.9 0.9 - 3.2 x10(3)/[facility] Monocytes % 6.7 % [facility] Monocyte Abs 1.1(H) 0.3 - 0.9 x10(3)/[facility] Eosinophils % 0.1 % [facility] Eosinophils Abs 0.0 0.0 - 0.4 x10(3)/[facility] Basophils % 0.2 % [facility] Basophils Abs 0.0 0.0 - 0.1 x10(3)/[facility] Immature Gran % 0.90 % [facility] Comment: Immature granulocytes(IG's)percentage and absolute count will include metamyelocytes, myelocytes, and promyelocytes. Blood smears from CBCs yielding IG's will be scanned manually for concordance. If this scan disagrees with the automated IG or if promyelocytes are noted, a manual differential will be performed. Nohemi Gran Abs 0.15(H) 0.00 - 0.04 x10(3)/[facility] Blood 04/11/2022 6:05 AM EDT 04/11/2022 6:29 AM EDT Narrative Resulting Agency Comment Spec In Lab Gen Salazar MD HEMATOLOGY ORDERABLE S [facility] [place] [address] * (ABNORMAL) Hemogram (04/11/2022 6:05 AM EDT) Pathologist [facility] WBC 17.0(H) 4.0 - 9.5 x10(3)/[facility] RBC 4.31(L) 4.58 - 5.54 x10(6)/[facility] Hemoglobin 12.6(L) 13.7 - 16.5 g/dL [facility] Hematocrit 38.2(L) 40.5 - 48.5 % [facility] MCV 88.6 82.9 - 93.1 [facility] MCH 29.2 27.5 - 32.1 pg [facility] MCHC 33.0 32.0 - 35.7 g/dL [facility] Platelets 264 145 - 357 x10(3)/[facility] RDWSD 41.2 36.0 - 45.0 [facility] RDWCV 12.7 11.4 - 13.8 % [facility] MPV 9.1 7.6 - 12.9 [facility] nRBC % Auto 0.0 % [facility] nRBC Abs Auto 0.000 0.000 - 0.000 x10(3)/[facility] Blood 04/11/2022 6:05 AM EDT 04/11/2022 6:29 AM EDT Narrative Resulting Agency Comment Spec In Lab Gen Salazar MD HEMATOLOGY ORDERABLE S [facility] [place] [address] * Basic Metabolic Panel (non-fasting) (04/11/2022 6:05 AM EDT) Pathologist [facility] Glucose Lvl 128 65 - 199 mg/dL [facility] Comment:Diabetes: >=200 mg/d L plus symptoms BUN 15 10 - 20 mg/dL [facility] Creatinine 0.95 0.80 - 1.50 mg/dL [facility] Sodium 141 135 - 145 mmol/L [facility] Potassium 4.2 3.5 - 5.0 mmol/L [facility] Comment: Please note: ??Patients with WBC >100,000 may have falsely elevated Potassium levels. ??For accurate Potassium quantification in these patients send serum separator tube (gold top) for subsequent determinations. ??Contact the Clinical Chemistry Laboratory if there are any questions. Chloride 105 98 - 107 mmol/L [facility] CO2 26 22 - 31 mmol/L [facility] Anion Gap 10 5 - 15 mmol/L [facility] Calcium 8.8 8.5 - 10.5 mg/dL [facility] Estimated GFR 87 >=60 mL/min/1. 73 m?? [facility] Comment: This patient's estimated GFR [...] and symptoms in addition to eGFR. Blood 04/11/2022 6:05 AM EDT 04/11/2022 6:29 AM EDT Narrative Resulting Agency Comment Spec In Lab Attila Daniel MD CHEMISTRY ORDERABLES [facility] [place] [address] * Magnesium (04/10/2022 5:09 AM EDT) Magnesium 0.80 0.69 - 1.07 mmol/L [facility] Blood Venous Draw / Unknown 04/10/2022 5:09 AM EDT 04/10/2022 6:03 AM EDT Narrative Resulting Agency Comment Spec In Lab Fadi Chambers MD CHEMISTRY ORDERABLES Performing Organization Address [facility]/ZIP Co de Phone Number [facility] [place] [address] * (ABNORMAL) Phosphorus (04/10/2022 5:09 AM EDT) Pathologist [facility] Phosphorus 1.1(Critic al) 2.5 - 4.5 mg/dL [facility] Comment:Called by: CARLOS, Read back by: Adelaida Velazquez, Date/Time: 04/10/22 08:25. Blood Venous Draw / Unknown 04/10/2022 5:09 AM EDT 04/10/2022 6:03 AM EDT Narrative Resulting Agency Comment Spec In Lab Fadi Chambers MD CHEMISTRY ORDERABLES [facility] [place] [address] * (ABNORMAL) Differential, Automated (04/10/2022 5:09 AM EDT) [facility] Neutrophils % 88.4 % [facility] Neutr Abs (ANC) 13.49(H) 1.70 - 6.10 x10(3)/mc L [facility] Lymphocytes % 4.5 % [facility] Lymphocytes Abs 0.7(L) 0.9 - 3.2 x10(3)/mc L [facility] Monocytes % 5.9 % [facility] Monocyte Abs 0.9 0.3 - 0.9 x10(3)/mc L [facility] Eosinophils % 0.0 % [facility] Eosinophils Abs 0.0 0.0 - 0.4 x10(3)/mc L [facility] Basophils % 0.1 % [facility] Basophils Abs 0.0 0.0 - 0.1 x10(3)/mc L [facility] Immature Gran % 1.10 % [facility] Comment: Immature granulocytes(IG's)percentage and absolute count will include metamyelocytes, myelocytes, and promyelocytes. Blood smears from CBCs yielding IG's will be scanned manually for concordance. If this scan disagrees with the automated IG or if promyelocytes are noted, a manual differential will be performed. Nohemi Gran Abs 0.17(H) 0.00 - 0.04 x10(3)/mc L [facility] Blood 04/10/2022 5:09 AM EDT 04/10/2022 5:59 AM EDT Narrative Resulting Agency Comment Spec In Lab Gen Salazar MD HEMATOLOGY ORDERABLE S [facility] [place] [address] * (ABNORMAL) Hemogram (04/10/2022 5:09 AM EDT) WBC 15.3(H) 4.0 - 9.5 x10(3)/[facility] RBC 4.36(L) 4.58 - 5.54 x10(6)/[facility] Hemoglobin 12.9(L) 13.7 - 16.5 g/dL [facility] Hematocrit 39.7(L) 40.5 - 48.5 % [facility] MCV 91.1 82.9 - 93.1 fL [facility] MCH 29.6 27.5 - 32.1 pg [facility] MCHC 32.5 32.0 - 35.7 g/dL [facility] Platelets 200 145 - 357 x10(3)/[facility] RDWSD 41.2 36.0 - 45.0 fL [facility] RDWCV 12.4 11.4 - 13.8 % [facility] MPV 10.4 7.6 - 12.9 fL [facility] nRBC % Auto 0.0 % [facility] nRBC Abs Auto 0.000 0.000 - 0.000 x10(3)/mcL [facility] Blood 04/10/2022 5:09 AM EDT 04/10/2022 5:59 AM EDT Narrative Resulting Agency Comment Spec In Lab Gen Salazar MD HEMATOLOGY ORDERABLE S [facility] [place] [address] * Basic Metabolic Panel (non-fasting) (04/10/2022 5:09 AM EDT) Glucose Lvl 166 65 - 199 mg/dL [facility] Comment:Diabetes: >=200 mg/d L plus symptoms BUN 15 10 - 20 mg/dL [facility] Creatinine 0.93 0.80 - 1.50 mg/dL [facility] Sodium 138 135 - 145 mmol/L [facility] Potassium 4.7 3.5 - 5.0 mmol/L [facility] Comment: Please note: ??Patients with WBC >100,000 may have falsely elevated Potassium levels. ??For accurate Potassium quantification in these patients send serum separator tube (gold top) for subsequent determinations. ??Contact the Clinical Chemistry Laboratory if there are any questions. Chloride 106 98 - 107 mmol/L [facility] CO2 23 22 - 31 mmol/L [facility] Anion Gap 9 5 - 15 mmol/L [facility] Calcium 9.2 8.5 - 10.5 mg/dL [facility] Estimated GFR 89 >=60 mL/min/1. 73 m?? [facility] Comment: This patient's estimated GFR [...] and symptoms in addition to eGFR. Blood 04/10/2022 5:09 AM EDT 04/10/2022 5:59 AM EDT Narrative Resulting Agency Comment Spec In Lab Attila Daniel MD CHEMISTRY ORDERABLES Performing Organization Address [facility] Co de Phone Number [facility] [place] [address] * Lower Respiratory Culture Sputum Expectorated (04/09/2022 7:02 PM EDT) Lower Respiratory Culture Moderate mixed bacterial morphotypes suggestive of normal upper respiratory do [facility] Gram Stain Few squamous epithelial cells seen Few Neutrophils seen Rare mixed bacterial morphotypes suggestive of normal upper respiratory do seen [facility] Sputum Expectorated 04/09/20 7:02 PM EDT 04/09/2022 8:04 PM EDT Narrative Resulting Agency Comment Spec In Lab Attila Daniel MD MICROBIOLOGY - GENER AL ORDERABLES Performing Organization Address [facility] Co de Phone Number [facility] [place] [address] * Apixaban Level (04/09/2022 3:30 PM EDT) Apixaban Level 98 ng/mL [facility] Comment: No ? therapeutic range? for Apixaban has been defined. ? On therapy? ranges for various indications are derived from the medical literature and pharmacokinetic modeling and listed below ([employer]. Hematology Am Soc Hematol Educ Program 2015 and the product monograph (see full references below)): INDICATION ?DOSE ? PEAK (ng/mL) ?? TROUGH (ng/mL) VTE prevention, major ?? orthopedic surgery ? 2.5 mg bid ? 41 ? 146 ?23 ? 109 VTE treatment ?10 mg bid ?111 ? 572 ?41 ? 335 ?5 mg bid ? 59 ? 302 ?22 ? 177 ?2.5 mg bid ? 30 ? 153 ?11 ? 90 Stroke prevention in atrial ?? fibrillation ? 5 mg bid ? 91 ? 321 ?41 ? 230 ?2.5 mg bid ? 69 ? 221 ?34 ? 162 Peak and trough values are estimates for steady state Peak is determined 3 ? 4 hours after a dose Trough is determined 12 hours after a dose Methodology: Chromogenic This test was developed and its performance characteristics determined by [facility]. It has not been cleared or approved by the FDA. The laboratory is regulated under CLIA as qualified to perform high complexity testing. This test is used for clinical purposes. It should not be regarded as investigational or for research. Blood 04/09/2022 3:30 PM EDT 04/09/2022 3:49 PM EDT Narrative Resulting Agency Comment Spec In Lab Attila Daniel MD HEMATOLOGY ORDERABLE S [facility] [place] [address] * Urinalysis with reflex Culture (04/09/2022 3:10 PM EDT) Glucose UA Negative Negative mg/dL [facility] Protein UA Negative Negative mg/dL [facility] Bilirubin UA Negative Negative mg/dL [facility] Comment: Clinical correlation required for positive Urine Bilirubin results as false positive may occur with some drugs and drug related products. If a false positive is suspected a serum total bilirubin should be considered if clinically indicated. Urobilinogen UA Normal Normal mg/dL M [facility] pH UA 5.0 5.0 - 8.0 [facility] Blood UA Negative Negative mg/dL [facility] Ketones UA Negative Negative mg/dL [facility] Nitrite UA Negative Negative [facility] Leukocytes UA Negative Negative [facility] Appearance UA Clear Clear [facility] Spec Mckenna UA 1.014 1.005 - 1.030 [facility] Color UA Yellow Yellow [facility] Culture Reflexed No [facility] Clean Catch Urine 04/09/2022 3:10 PM EDT 04/09/2022 3:50 PM EDT Narrative Resulting Agency Comment Spec In Lab Attila Daniel MD URINE ORDERABLES Performing Organization Address City/State/[facility] Co de Phone Number [facility] [place] [address] * Legionella Urinary Antigen (04/09/2022 3:10 PM EDT) Legionella Urinary Antigen Negative Negative [facility] Comment: A negative Legionella Urinary Antigen by EIA suggests no recent or current infection with L. pneumophila Serogroup 1. Antigen may not be present in urine in early infection, and the level of antigen present in the urine may be below the detection limit of the test. Sensitivity: 95% Specificity 95%. Urine 04/09/2022 3:10 PM EDT 04/09/2022 4:39 PM EDT Narrative Resulting Agency Comment Spec In Lab Attila Daniel MD MICROBIOLOGY - GENER AL ORDERABLES [facility] [place] [address] * Respiratory Panel PCR (04/09/2022 1:23 PM EDT) Resp Panel Source [employer] [facility] Resp Panel PCR Negative Negative [facility] Comment: Respiratory Panels are performed on the [employer], using multiplexed PCR nucleic acid detection. ??Negative results do not preclude respiratory infection and should not be used as the sole basis for diagnosis, treatment or other management decisions. Adenovirus Not Detected Not Detected [facility] Coronavirus HKU1 Not Detected Not Detected [facility] Coronavirus NL63 Not Detected Not Detected [facility] Coronavirus 229E Not Detected Not Detected [facility] Coronavirus OC43 Not Detected Not Detected [facility] SARS-CoV-2 Not Detected Not Detected [facility] Comment: Testing for SARS-CoV-2 (Severe acute respiratory syndrome coronavirus 2) to aid in the diagnosis of COVID-19 is performed using the [employer] Respiratory Panel 2.1 ([employer]) as authorized by the FDA issued Emergency Use Authorization (EUA). This panel also tests for multiple other viral and bacterial pathogens. This assay is intended for In-vitro Diagnostic (IVD) use with nasopharyngeal swabs in viral transport media. The assay is performed based on the instructions for use and additional guidance provided by the FDA. Testing is performed in laboratories within the [facility], each of which is certified under the Clinical Laboratory Improvement Amendments of 1988 (CLIA), 42 U.S.C. section 263a, to perform high-complexity tests. Assay performance has been verified according to clinical laboratory regulatory requirements. The test result for SARS-CoV-2 provided above should be interpreted in combination with the clinical observation, patient history and epidemiological information. For testing of asymptomatic individuals, assay performance characteristics and clinical utility have not been evaluated. ??A result of Not Detected indicates that the viral RNA target is not present but does not preclude SARS-CoV-2 infection. False negative results may occur if a specimen is improperly collected, transported or handled; if amplification inhibitors are present; or if inadequate numbers of viral particles are present in the specimen. When a diagnostic test is negative, the possibility of a false negative result should be considered in the context of a patient's recent exposures and the presence of clinical signs and symptoms consistent with COVID-19. A result of Detected suggests a current or recent infection. Positive and negative predictive values for this test are dependent on disease prevalence. A result of Invalid indicates the inability to conclusively determine the presence or absence of SARS-CoV-2 RNA in the sample which can be due to a variety of factors. ??Collection of a new sample for repeat testing is recommended in the case of an invalid result. CDC COVID-19 criteria for testing on human specimens and clinical management guidance information are available at the CDC Coronavirus Disease 2019 (COVID-19) webpage under Information for Healthcare Professionals (https://www.cdc.gov/coronavirus/2019-ncov/hcp/index.html). Additional information about this and other EUA tests can be found in provider and patient fact sheets at the following FDA website: https://www.fda.gov/medical-devices/edvdocrflvn-mxrfkrx-9877-bnbnq-41-gapeshnkv- use-a vslkznljglxym-hoxtdje-vqgtsac/abbds-gzaanyyhnsc-bpik Human Metapneumovirus Not Detected Not Detected [facility] Human Rhino/Enterovirus Not Detected Not Detected [facility] Influenza A Not Detected Not Detected [facility] Influenza B Not Detected Not Detected [facility] Parainfluenza 1 Not Detected Not Detected [facility] Parainfluenza 2 Not Detected Not Detected [facility] Parainfluenza 3 Not Detected Not Detected [facility] Parainfluenza 4 Not Detected Not Detected [facility] Respiratory Syncytial Virus Not Detected Not Detected [facility] Chlamydophila pneumoniae Not Detected Not Detected [facility] Mycoplasma pneumoniae Not Detected Not Detected [facility] Nasopharyngeal Swab Other / Unknown 04/09 1:23 PM EDT 04/09/2022 1:23 PM EDT Narrative Resulting Agency Comment Spec In Lab Gen Salazar MD MICROBIOLOGY - GENER AL ORDERABLES [facility] [place] [place] [address] * CT Chest wo Contrast (Generic) (04/09/2022 12:43 PM EDT) Anatomical Region Laterality Modality Chest Computed Tomogra phy 04/09/2022 12:5 5 PM EDT Impressions 04/09/2022 1:13 PM EDT There is no pneumothorax. Extensive centrilobular emphysematous changes are demonstrated. Left-sided airspace disease and increased interstitial markings are noted particularly at the left base. This is new compared with prior chest CT and may represent infectious etiology. There is no adenopathy identified at this time. Thank you for letting us participate in the care of this patient. ??If you are a health care provider and have any questions regarding this report, please contact the number below. ??For patients who have questions please contact the health personal care assistant that requested your imaging first. ? Narrative 04/09/2022 1:13 PM EDT EXAMINATION: CT CHEST WO CONTRAST (GENERIC) CLINICAL HISTORY: Pneumothorax; ptx on xray TECHNIQUE: 3.75 mm thick axial contiguous sections were obtained through the chest via helical acquisition without intravenous contrast administration. Thin-section reconstructions as well as coronal and sagittal reformatted images were generated. COMPARISON: 04/09/2022 frontal chest and 12/27/2021 CT chest FINDINGS: Pulmonary parenchyma: Diffuse centrilobular emphysematous changes are again demonstrated particularly at the apices. There are bullous changes within the lungs as well 2 cm focus is noted at the right base. There is increased interstitial markings and patchy opacities peripherally throughout the left lung though greatest at the left base. Airways: No significant findings. Pleura: No pleural effusions. No pneumothorax. Lymph nodes: No lymphadenopathy Heart, pericardium, and great vessels: Moderate atherosclerotic coronary artery calcifications. No pericardial effusion. Other mediastinal structures: No significant findings. Lower neck: No significant findings. Upper abdomen: 15 mm cyst in the right lobe of the liver noted. Other subcentimeter hypodensities in the liver are too small to characterize though statistically likely benign. Punctate calcified granulomas in the spleen incidentally noted. Body wall soft tissues: No significant findings. Skeletal structures: No significant findings. Procedure Note Saud Granger MD - 04/09/2022 EXAMINATION: CT CHEST WO CONTRAST (GENERIC) CLINICAL HISTORY: Pneumothorax; ptx on xray TECHNIQUE: 3.75 mm thick axial contiguous sections were obtained throughthe chest via helical acquisition without intravenous contrastadministration. Thin-section reconstructions as well as coronal and sagittal reformattedimages were generated. COMPARISON: 04/09/2022 frontal chest and 12/27/2021 CT chest FINDINGS: Pulmonary parenchyma: Diffuse centrilobular emphysematous changes areagain demonstrated particularly at the apices. There are bullous changes withinthe lungs as well 2 cm focus is noted at the right base. There is increased interstitial markings and patchy opacities peripherally throughout theleft lung though greatest at the left base. Airways: No significant findings. Pleura: No pleural effusions. No pneumothorax. Lymph nodes: No lymphadenopathy Heart, pericardium, and great vessels: Moderate atherosclerotic coronaryartery calcifications. No pericardial effusion. Other mediastinal structures: No significant findings. Lower neck: No significant findings. Upper abdomen: 15 mm cyst in the right lobe of the liver noted. Other subcentimeter hypodensities in the liver are too small to characterizethough statistically likely benign. Punctate calcified granulomas in the spleen incidentally noted. Body wall soft tissues: No significant findings. Skeletal structures: No significant findings. IMPRESSION There is no pneumothorax. Extensive centrilobular emphysematous changesare demonstrated. Left-sided airspace disease and increased interstitial markings arenoted particularly at the left base. This is new compared with prior chest CTand may represent infectious etiology. There is no adenopathy identified at thistime. Thank you for letting us participate in the care of this patient. If youare a health care provider and have any questions regarding this report,please contact the number below. For patients who have questions please contactthe health personal care assistant that requested your imaging first. Juanjulianna Campbell DO IMG CT ORDERABLES * US Thoracic (POCUS) (04/09/2022 11:23 AM EDT) Anatomical Region Laterality Modality Other 04/09/2022 11:2 3 AM EDT Narrative 04/13/2022 6:34 PM EDT Exam Information A focused ultrasound exam of the pleural spaces was performed to evaluate for pneumothorax, interstitial syndrome, and pleural effusion. : Indications The ultrasound was performed with the following indication(s): : Dyspnea,Hypoxia,Other indications as noted in H&P Identified Structures The following structures were identified: : Zone 1: Right thorax apex midclavicular line ,Zone 3: Right thorax superior posterior axillary line ,Zone 5: Left thorax apex midclavicular line ,Zone 6: Left thorax base midclavicular line,Zone 7: Left thorax superior posterior axillary line ,Zone 8: Left thorax inferior posterior axillary line Findings Exam of the above structure(s) revealed the following findings:: Right thorax lung sliding:: Present Right thorax B-lines (> 3 B-lines):: Right thorax pleural effusion:: Present Right thorax subpleural consolidation:: Absent Left thorax lung sliding:: Present Left thorax B-lines (> 3 B-lines):: Present Left thorax pleural effusion:: Absent Left thorax subpleural consolidation:: Absent Other findings:: Impression: Right lung:: Normal limited thoracic ultrasound Left lung:: Diffuse interstitial syndrome Other:: xray noting ptx, not see on this ??US, ct ordered Confirmatory Study What confirmatory study was done:: CT Results:: no ptx, left pna CPT Code 00836:Limited Thoracic Ultrasound- Lung/Soft Tissue (95359) Electronically Signed by the following Performing: ?on 18:34 Attending: Juan Campbell ??on 18:34 PDF Procedure Note Juan Campbell, DO - 04/13/2022 Exam Information A focused ultrasound exam of the pleural spaces was performed to evaluatefor pneumothorax, interstitial syndrome, and pleural effusion. : Indications The ultrasound was performed with the following indication(s): :Dyspnea,Hypoxia,Other indications as noted in H&P Identified Structures The following structures were identified: : Zone 1: Right thorax apexmidclavicular line ,Zone 3: Right thorax superior posterior axillary line ,Zone 5: Left thorax apexmidclavicular line ,Zone 6: Left thorax base midclavicular line,Zone 7: Left thorax superiorposterior axillary line ,Zone 8: Left thorax inferior posterior axillary line Findings Exam of the above structure(s) revealed the following findings:: Right thorax lung sliding:: Present Right thorax B-lines (> 3 B-lines):: Right thorax pleural effusion:: Present Right thorax subpleural consolidation:: Absent Left thorax lung sliding:: Present Left thorax B-lines (> 3 B-lines):: Present Left thorax pleural effusion:: Absent Left thorax subpleural consolidation:: Absent Other findings:: Impression: Right lung:: Normal limited thoracic ultrasound Left lung:: Diffuse interstitial syndrome Other:: xray noting ptx, not see on this US, ct ordered Confirmatory Study What confirmatory study was done:: CT Results:: no ptx, left pna CPT Code 79952:Limited Thoracic Ultrasound- Lung/Soft Tissue (79947) Electronically Signed by the following Performing: on 18:34Attending: Juan Campbell on 18:34 PDF Juan Campbell DO [facility] IMAGES * Blood culture (04/09/2022 9:50 AM EDT) Blood Culture No growth at 5 days. [facility] Blood 04/09/2022 9:50 AM EDT 04/09/2022 12:17 PM EDT Comment:l ac Narrative Resulting Agency Comment Spec In Lab Juan Christo Adrian MICROBIOLOGY - BLOOD ORDERABLES [facility] [place] [address] * XR Chest One View (04/09/2022 9:35 AM EDT) Anatomical Region Laterality Modality Chest N/A Digital Radiogra phy Impressions 04/09/2022 9:53 AM EDT Small left apical pneumothorax, estimated to be up to 15%. No midline shift. Left base airspace disease. Thank you for letting us participate in the care of this patient. ??If you are a health care provider and have any questions regarding this report, please contact the number below. ??For patients who have questions please contact the health personal care assistant that requested your imaging first. ? Narrative 04/09/2022 9:53 AM EDT EXAMINATION: XR CHEST ONE VIEW CLINICAL HISTORY: Shortness of breath TECHNIQUE: One view, AP portable chest COMPARISON: 12/28/2021 CT chest without contrast and 11/27/2017 frontal chest-both studies from [facility]. FINDINGS: There are bilateral emphysematous changes and bullous changes demonstrated. Small left apical pneumothorax. Left sided lower lung airspace disease and increased interstitial markings. The cardiomediastinal silhouette is normal. There is no midline shift. The pulmonary vasculature is normal. There are no pleural effusions. ??No acute displaced rib fractures. No suspicious skeletal lesions demonstrated. Procedure Note Saud Granger MD - 04/09/2022 EXAMINATION: XR CHEST ONE VIEW CLINICAL HISTORY: Shortness of breath TECHNIQUE: One view, AP portable chest COMPARISON: 12/28/2021 CT chest without contrast and 11/27/2017 frontal chest-bothstudies from [facility]. FINDINGS: There are bilateral emphysematous changes and bullous changesdemonstrated. Small left apical pneumothorax. Left sided lower lung airspace diseaseand increased interstitial markings. The cardiomediastinal silhouette isnormal. There is no midline shift. The pulmonary vasculature is normal. There areno pleural effusions. No acute displaced rib fractures. No suspiciousskeletal lesions demonstrated. IMPRESSION Small left apical pneumothorax, estimated to be up to 15%. No midlineshift. Left base airspace disease. Thank you for letting us participate in the care of this patient. If youare a health care provider and have any questions regarding this report,please contact the number below. For patients who have questions please contactthe health personal care assistant that requested your imaging first. Juan Campbell DO IMG DX ORDERABLES * COVID-19 PCR (04/09/2022 9:25 AM EDT) SARS-CoV-2 RNA Not Detected Not Detected [facility] Comment: This result should be interpreted in combination with the clinical observations, patient history and epidemiological information in making a final diagnosis. For testing of asymptomatic individuals, assay performance characteristics and clinical utility have not been evaluated. Testing for SARS-CoV-2 (Severe acute respiratory syndrome coronavirus 2, formerly known as 2019 novel coronavirus or 2019-nCoV) to aid in the diagnosis of COVID-19 is performed using the [employer] m SARS-CoV-2 Assay as authorized by the FDA Emergency Use Authorization (EUA). This EUA assay is intended for In-vitro Diagnostic (IVD) use with respiratory specimens such as nasopharyngeal swabs collected from individuals during the acute phase of infection. This assay is performed based on the instructions for use provided by [employer] and additional guidance provided by CDC and FDA. Testing is performed in the [facility] within the Department of Pathology and Laboratory Medicine at [facility], certified under the Clinical Laboratory Improvement Amendments of 1988 (CLIA), 42 U.S.C. 263a, to perform high complexity tests. Assay performance has been verified according to clinical laboratory regulatory requirements for use with specimens collected from individuals suspected of COVID-19. Test results are provided above. A result of Not Detected indicates that the viral RNA target is not present above the limit of detection, but does not preclude SARS-CoV-2 infection. False negative results may occur if a specimen is improperly collected, transported or handled; if amplification inhibitors are present; or if inadequate numbers of viral particles are present in the specimen. When a diagnostic test is negative, the possibility of a false negative result should be considered in the context of a patient's recent exposures and the presence of clinical signs and symptoms consistent with COVID-19. A result of Detected indicates that RNA from SARS-CoV-2 was detected and the patient is infected. As required or requested by public health authorities, positive specimens may be sent for additional testing. Positive and negative predictive values for this test are highly dependent on disease prevalence. A result of Invalid indicates that neither the viral RNA targets nor the internal control target was detected. An invalid result suggests the presence of inhibitors. Recollection and re-testing is recommended in the case of an invalid result. CDC COVID-19 criteria for testing on human specimens and clinical management guidance information are available at the CDC Coronavirus Disease 2019 (COVID-19) webpage under Information for Healthcare Professionals (https://www.cdc.gov/coronavirus/2019-ncov/hcp/index.html) Additional information about this and other EUA tests can be found in provider and patient fact sheets at the following FDA website: https://www.fda.gov/medical-devices/jdghwlgwhel-uvhrjxz-5341-lhckq-75-nnzkvbsrq- use-a oitwcjofjlphb-cetswod-drvshzz/rmslq-wqejdshdjqz-wgdy SARS-Cov-2 RNA Source [facility] Tracheal Aspirate 04/09/2022 9:25 AM EDT 04/09/2022 12:42 PM EDT Comment:Symptoms->COVID-19 S uspected Narrative Resulting Agency Comment Spec In Lab Juan Campbell DO MICROBIOLOGY - GENER AL ORDERABLES Performing Organization Address City/[facility]/ZIP Co de Phone Number [facility] [place] [address] * Blood culture (04/09/2022 9:25 AM EDT) Blood Culture No growth at 5 days. [facility] Blood 04/09/2022 9:25 AM EDT 04/09/2022 12:16 PM EDT Comment:R ac Narrative Resulting Agency Comment Spec In Lab Juan Campbell DO MICROBIOLOGY - BLOOD ORDERABLES Performing Organization Address [facility] Co de Phone Number [facility] [place] [address] * (ABNORMAL) BLOOD GAS 2 VENOUS (04/09/2022 9:01 AM EDT) pH Shun 7.38 7.32 - 7.42 [facility] pCO2 Shun 40(L) 41 - 51 mmHg [facility] pO2 Shun 50(H) 25 - 40 mmHg [facility] HCO3 Shun 23.1 mmol/L [facility] BE Shun -2.1 mmol/L [facility] Hgb Blood Gas 15.0 13.7 - 16.5 g/dL [facility] O2HB Shun 83.4 % [facility] COHB Shun 0.6 % [facility] Comment: Nonsmokers: 0.5-1.5% COHB Smokers: Variable, but usually less than 10% Toxic: 20-30% COHB Lethal: Greater than 60% COHB METHB Shun 0.6 <=1.5 % [facility] Na Whole Blood 137 135 - 145 mmol/L [facility] K Whole Blood 4.1 3.5 - 5.0 mmol/L [facility] Comment: Please note: Patients with WBC >100,000 may have falsely elevated Potassium levels. Contact the Clinical Chemistry Laboratory if there are any questions. ICa Whole Blood 1.21 1.15 - 1.33 mmol/L [facility] Comment: Note: ??Total bilirubin higher than 20 mg/dL may lead to falsely low ionized calcium. CL Whole Blood 102 98 - 107 mmol/L [facility] Gluc Whole Bld 134 65 - 199 mg/dL [facility] Comment:Diabetes: >=200 mg/d L plus symptoms Lactate WB 3.3(H) 0.5 - 2.2 mmol/L [facility] BGas Source Venous [facility] Blood 04/09/2022 9:01 AM EDT 04/09/2022 9:01 AM EDT Emergency Dept CHEMISTRY ORDERABLE S [facility] [place] [address] * (ABNORMAL) Hemoglobin A1c (04/09/2022 8:55 AM EDT) Hemoglobin A1C 6.0(H) 4.3 - 5.6 % [facility] Comment: Reference Range: 4.3 - 5.6% 5.7 - 6.4% - Increased Risk of Developing Diabetes Mellitus >= 6.5% - Consistent with diagnosis of Diabetes Mellitus In the absence of hyperglycemia (i.e. plasma glucose > 200 mg/dL) or classic symptoms of hyperglycemia a repeat measurement of HbA1c should be performed on a separate sample to confirm the diagnosis. Diagnosis and Classification of Diabetes Mellitus, Diabetes Care 2013; 36: Suppl. 1, S67-74 Est Avg Gluc 124 mg/dL [facility] Comment: eAG equivalents for HbA1c percentages: HbA1c(%) ?eAG(mg/dL) 6.0 ?126 6.5 ?140 7.0 ?154 7.5 ?169 8.0 ?183 8.5 ?197 9.0 ?212 9.5 ?226 10.0 ? 240 Limitations: The eAG calculation has not been validated on women, individuals below 18 years old and above 70 years old, and individuals with hemoglobinopathies. Additional resources are available on the ADA website. Scooter GONZALES, Suzi J, Luz R, et al. ??Translating the A1C assay into estimated average glucose values. ??Diabetes Care 2008:31(8):9462-3919. Blood Venous Draw / Unknown 04/09/2022 8:55 AM EDT 04/09/2022 2:18 PM EDT Narrative Resulting Agency Comment Spec In Lab Attila Daniel MD CHEMISTRY ORDERABLES Performing Organization Address [facility] Co de Phone Number [facility] [place] [address] * pro-Brain Natriuretic Peptide (04/09/2022 8:55 AM EDT) ProBNP 60 <=124 pg/mL [facility] Blood Venous Draw / Unknown 04/09/2022 8:55 AM EDT 04/09/2022 9:04 AM EDT Narrative Resulting Agency Comment Spec In Lab Attila Daniel MD CHEMISTRY ORDERABLES Performing Organization Address [facility] Co de Phone Number [facility] [place] [address] * (ABNORMAL) Differential, Automated (04/09/2022 8:55 AM EDT) Neutrophils % 88.6 % [facility] Neutr Abs (ANC) 10.80(H) 1.70 - 6.10 x10(3)/[facility] Lymphocytes % 7.2 % [facility] Lymphocytes Abs 0.9 0.9 - 3.2 x10(3)/[facility] Monocytes % 3.3 % [facility] Monocyte Abs 0.4 0.3 - 0.9 x10(3)/[facility] Eosinophils % 0.2 % [facility] Eosinophils Abs 0.0 0.0 - 0.4 x10(3)/[facility] Basophils % 0.5 % [facility] Basophils Abs 0.1 0.0 - 0.1 x10(3)/[facility] Immature Gran % 0.20 % [facility] Comment: Immature granulocytes(IG's)percentage and absolute count will include metamyelocytes, myelocytes, and promyelocytes. Blood smears from CBCs yielding IG's will be scanned manually for concordance. If this scan disagrees with the automated IG or if promyelocytes are noted, a manual differential will be performed. Nohemi Gran Abs 0.02 0.00 - 0.04 x10(3)/[facility] Blood 04/09/2022 8:55 AM EDT 04/09/2022 9:02 AM EDT Narrative Resulting Agency Comment Spec In Lab Rosendo Giordano MD HEMATOLOGY ORDERABLE S [facility] [place] [address] * (ABNORMAL) Hemogram (04/09/2022 8:55 AM EDT) WBC 12.2(H) 4.0 - 9.5 x10(3)/[facility] RBC 5.01 4.58 - 5.54 x10(6)/[facility] Hemoglobin 14.6 13.7 - 16.5 g/dL [facility] Hematocrit 44.2 40.5 - 48.5 % [facility] MCV 88.2 82.9 - 93.1 fL [facility] MCH 29.1 27.5 - 32.1 pg [facility] MCHC 33.0 32.0 - 35.7 g/dL [facility] Platelets 289 145 - 357 x10(3)/[facility] RDWSD 39.8 36.0 - 45.0 [facility] RDWCV 12.3 11.4 - 13.8 % [facility] MPV 8.4 7.6 - 12.9 [facility] nRBC % Auto 0.0 % [facility] nRBC Abs Auto 0.000 0.000 - 0.000 x10(3)/[facility] Blood 04/09/2022 8:55 AM EDT 04/09/2022 9:02 AM EDT Narrative Resulting Agency Comment Spec In Lab Rosendo Giordano MD HEMATOLOGY ORDERABLE S [facility] [place] [address] * Troponin (04/09/2022 8:55 AM EDT) Troponin-T <0.01 0.00 - 0.00 ng/mL [facility] Comment: The 99th percentile for Troponin T is less than 0.01 ng/mL, any detectable cTnT concentration using this assay should be considered elevated. According to the third universal definition of myocardial infarction the following criteria with a clinical presentation consistent with acute myocardial ischemia meets the diagnosis for a myocardial infarction ([place]). Detection of a rise and/or fall of cTnT, with at least one value greater than the 99th percentile (> or = 0.01) and with at least one of the following ?? Symptoms of ischemia ?? New or presumed new significant [id number] wave (ST-T) changes or new left bundle branch block (LBBB) ?? Development of pathologic Q waves in the ECG ?? Imaging evidence of new loss of viable myocardium or new regional wall motion abnormality ?? Identification of an intracoronary thrombus by angiography or autopsy Samples for cTnT testing should be obtained serially upon first assessment and again 3 to 6 hours later. If the clinical suspicion is high and previous samples have been negative an additional sample may be indicated. Reference: Third [place] Definition of Myocardial Infarction. Journal of [employer] [place] [employer] 2012;60:1581-98 Blood 04/09/2022 8:55 AM EDT 04/09/2022 9:02 AM EDT Narrative Resulting Agency Comment Spec In Lab Juan Campbell DO CHEMISTRY ORDERABLES [facility] [place] [address] * (ABNORMAL) Comprehensive metabolic panel (non-fasting) (04/09/2022 8:55 AM EDT) Glucose Lvl 144 65 - 199 mg/dL [facility] Comment:Diabetes: >=200 mg/d L plus symptoms BUN 16 10 - 20 mg/dL [facility] Creatinine 0.99 0.80 - 1.50 mg/dL [facility] Sodium 137 135 - 145 mmol/L [facility] Potassium 4.1 3.5 - 5.0 mmol/L [facility] Comment: Please note: ??Patients with WBC >100,000 may have falsely elevated Potassium levels. ??For accurate Potassium quantification in these patients send serum separator tube (gold top) for subsequent determinations. ??Contact the Clinical Chemistry Laboratory if there are any questions. Chloride 103 98 - 107 mmol/L [facility] CO2 21(L) 22 - 31 mmol/L [facility] Anion Gap 13 5 - 15 mmol/L [facility] Calcium 9.2 8.5 - 10.5 mg/dL [facility] Total Protein 6.9 6.1 - 8.0 g/dL [facility] Albumin 4.3 3.2 - 5.2 g/dL [facility] AST 25 0 - 39 unit/L [facility] ALT 30 0 - 55 unit/L [facility] Alk Phos 59 40 - 130 unit/L [facility] Total Bilirubin 0.5 0.2 - 1.3 mg/dL [facility] Estimated GFR 83 >=60 mL/min/1. 73 m?? [facility] Comment: This patient's estimated GFR [...] and symptoms in addition to eGFR. Blood 04/09/2022 8:55 AM EDT 04/09/2022 9:02 AM EDT Narrative Resulting Agency Comment Spec In Lab Juan Campbell DO CHEMISTRY ORDERABLES [facility] [place] [address] * EKG 12 Lead (04/09/2022 8:41 AM EDT) Ventricular rate 137 BPM MUSE SYSTEM Atrial Rate 137 BPM MUSE SYSTEM P-R Interval 134 ms MUSE SYSTEM QRS Duration 88 ms MUSE SYSTEM Q-T Interval 292 ms MUSE SYSTEM QTC Calculated (Bezet) 440 ms MUSE SYSTEM Calculated P [place] 68 degrees MUSE SYSTEM Calculated R [place] 94 degrees MUSE SYSTEM Calculated T [place] 14 degrees MUSE SYSTEM INTERPRETATION Sinus tachycardia Rightward axis Possible Inferior infarct , age undetermined Abnormal ECG When compared with ECG of 23-JUN-2019 23:50, Vent. rate has increased BY ??47 BPM Inverted T waves have replaced nonspecific T wave abnormality in Inferior leads T wave inversion no longer evident in Anterior leads Confirmed by MD ADEN, MIKE ([id number]) on 04/09/2022 1:48:20 PM MUSE SYSTEM 04/09/2022 8:41 AM EDT 04/09/2022 1:48 PM EDT Juan Campbell DO ECG ORDERABLES MUSE SYSTEM documented in this encounter Visit Diagnoses Diagnosis Shortness of breath- Primary Shortness of breath documented in this encounter Admitting Diagnoses Diagnosis Shortness of breath documented in this encounter Administered Medications Inactive Administered Medications - up to 3 most recent administrations Medication Order MAR Action Action Date Dose Rate Site acetaminophen (Tylenol) tablet 650 mg 650 mg, Oral, EVERY 6 HOURS PRN, Starting on Sun04/09/22 at 1813, Until 04/10/22 at 1143, Pain, Fever, Administer for temperature greater than or equal to 38.2 degrees celsius. Maximum daily dose of acetaminophen from all sources not to exceed 4,000 mg. When ordered for pain, acetaminophen should be given even when other ordered pain medications are indicated., Routine Given 04/09/2022 8:04 PM EDT 650 mg acetaminophen (Tylenol) tablet 975 mg 975 mg, Oral, EVERY 6 HOURS PRN, Starting on 04/10/22 at 1143, Until Sun04/14/22 at 1824, Pain, Fever, Administer for temperature greater than or equal to 38.2 degrees celsius. Maximum daily dose of acetaminophen from all sources not to exceed 4,000 mg. When ordered for pain, acetaminophen should be given even when other ordered pain medications are indicated., Routine albuteroL (Proventil) nebulizer solution 2.5 mg 2.5 mg, Nebulization, EVERY 2 HOURS PRN, Starting on Sun04/09/22 at 1813, Until Sun04/14/22 at 1824, Wheezing, Routine Given 04/12/2022 9:59 PM EDT 2.5 mg apixaban (Eliquis) tablet 5 mg 5 mg, Oral, 2 TIMES DAILY, First dose on Sun04/09/22 at 2100, Until Discontinued, Anticoagulant, Routine, Restricted anticoagulant, choose the most appropriate response: Continuation of ongoing therapy Given 2022 8:25 AM EDT 5 mg Given 04/13/2022 9:20 PM EDT 5 mg Given 04/13/2022 8:54 AM EDT 5 mg cefTRIAXone (Rocephin) 2 g vial attach to sodium chloride 0.9% 50 mL Mini-Bag Plus 2 g, Intravenous, ONCE, 1 dose, On [place] 04/09/22 at 0852, Administer over 30 Minutes, Indication for (Active or Suspected): Pneumonia (Community) New Bag 04/09/2022 9:06 AM EDT 2 g 100 mL/hr doxycycline monohydrate (Monodox) capsule 100 mg 100 mg, Oral, 2 TIMES DAILY, First dose on [place] 04/09/22 at 2100, Until Discontinued, Routine, Indication for (Active or Suspected): Pneumonia (Community) Given 04/13/2022 8:54 AM EDT 100 mg Given 04/12/2022 8:31 PM EDT 100 mg Given 04/12/2022 8:52 AM EDT 100 mg doxycycline monohydrate (Monodox) capsule 100 mg 100 mg, Oral, 2 TIMES DAILY, 18 doses, First dose (after last modification) on [facility] 04/13/22 at 2100, Last dose on [facility] 04/22/22 at 0900, Routine, Indication for (Active or Suspected): Pneumonia (Community) Given 2022 8:26 AM EDT 100 mg Given 04/13/2022 9:20 PM EDT 100 mg ipratropium-albuteroL (Duoneb) 0.5 mg-3 mg(2.5 mg base)/3 mL nebulizer solution 3 mL 3 mL, Nebulization, EVERY 15 MIN, 3 doses, First dose on [place] 04/09/22 at 0849, Last dose on [place] 04/09/22 at 0919, STAT Given 04/09/2022 9:19 AM EDT 3 mLs Given 04/09/2022 9:05 AM EDT 3 mLs Given 04/09/2022 8:51 AM EDT 3 mLs ipratropium-albuteroL (Duoneb) 0.5 mg-3 mg(2.5 mg base)/3 mL nebulizer solution 3 mL 3 mL, Nebulization, EVERY 15 MIN, 3 doses, First dose (after last reorder) on [place] 04/09/22 at 1123, Last dose on [place] 04/09/22 at 1153, STAT Given 04/09/2022 11:38 AM EDT 3 mLs ipratropium-albuteroL (Duoneb) 0.5 mg-3 mg(2.5 mg base)/3 mL nebulizer solution 3 mL 3 mL, Nebulization, EVERY 6 HOURS, First dose on Sun04/09/22 at 1900, Until Discontinued, Routine Given 2022 6:04 AM EDT 3 mLs Given 04/13/2022 6:42 PM EDT 3 mLs Given 04/13/2022 12:53 PM EDT 3 mLs levoFLOXacin (Levaquin) tablet 750 mg 750 mg, Oral, EVERY MORNING, 9 doses, First dose (after last modification) on Sun04/14/22 at 0700, Last dose on Sun04/22/22 at 0700, Routine, Indication for (Active or Suspected): Pneumonia (Community), Restricted Antibiotic: Please indicate the most appropriate choice: ID Approval by Regulo Rayo Given 2022 6:04 AM EDT 750 mg magnesium sulfate 1 g in dextrose 5% 100 mL infusion 1 g, Intravenous, ONCE, 1 dose, On Sun04/09/22 at 0925, Administer over 60 Minutes New Bag 04/09/2022 10:33 AM EDT 1 g 100 mL/hr magnesium sulfate 2 g in sterile water 50 mL infusion 2 g, Intravenous, ONCE, 1 dose, On Sun04/10/22 at 0930, Administer over 120 Minutes New Bag 04/10/2022 8:50 AM EDT 2 g 25 mL/hr melatonin tablet 3 mg 3 mg, Oral, NIGHTLY PRN, Starting on Sun04/09/22 at 1813, Until Sun04/14/22 at 1824, Sleep, Routine Given 04/10/2022 9:17 PM EDT 3 mg Given 04/09/2022 8:04 PM EDT 3 mg metFORMIN (Glucophage) tablet 500 mg 500 mg, Oral, 2 TIMES DAILY WITH MEALS, First dose on Sun04/14/22 at 1700, Until Discontinued, Routine methylPREDNISolone sod succ (pf) (SOLU-Medrol) (125 mg/2 mL) injection 125 mg 125 mg, Intravenous, ONCE, 1 dose, On Sun04/09/22 at 0849 Given 04/09/2022 9:06 AM EDT 125 mg pantoprazole EC (Protonix) tablet 40 mg 40 mg, Oral, DAILY, First dose on Sun04/10/22 at 0900, Until Discontinued Given 04/11/2022 8:40 AM EDT 40 mg Given 04/10/2022 8:04 AM EDT 40 mg pantoprazole EC (Protonix) tablet 40 mg 40 mg, Oral, ONCE, On Sun04/12/22 at 0415, 1 dose Given 04/12/2022 3:25 AM EDT 40 mg pantoprazole EC (Protonix) tablet 40 mg 40 mg, Oral, DAILY, First dose on Sun04/14/22 at 0945, Until Discontinued, DO NOT CRUSH OR OPEN Given 2022 9:05 AM EDT 40 mg piperacillin-tazobactam (Zosyn) 3.375 g vial attach to sodium chloride 0.9% 50 mL Mini-Bag Plus 3.375 g, Intravenous, EVERY 8 HOURS, 13 doses, First dose on Sun04/09/22 at 1900, Last dose on Sun04/13/22 at 2100, Administer over 4 Hours, Warning Vesicant/Irritant Medication Do not administer or Y-site with lactated ringers., Indication for (Active or Suspected): Pneumonia (Community) New Bag 04/13/2022 12:53 PM EDT 3.375 g 12.5 mL/ hr New Bag 04/13/2022 5:19 AM EDT 3.375 g 12.5 mL/hr New Bag 04/12/2022 8:32 PM EDT 3.375 g 12.5 mL/hr piperacillin-tazobactam (Zosyn) 3.375 g vial attach to sodium chloride 0.9% 50 mL Mini-Bag Plus 3.375 g, Intravenous, ONCE, 1 dose, On Sun04/13/22 at 2215, Administer over 4 Hours, Warning Vesicant/Irritant Medication Do not administer or Y-site with lactated ringers., Indication for (Active or Suspected): Pneumonia (Community) New Bag 04/13/2022 9:37 PM EDT 3.375 g 12.5 mL/hr piperacillin-tazobactam (Zosyn) 4.5 g vial attach to sodium chloride 0.9% 100 mL Mini-Bag Plus 4.5 g, Intravenous, ONCE, 1 dose, On Sun04/09/22 at 0925, Administer over 0.5 Hours, Warning Vesicant/Irritant Medication Do not administer or Y-site with lactated ringers., Indication for (Active or Suspected): Bacteremia/Sepsis New Bag 04/09/2022 9:42 AM EDT 4.5 g 200 mL/hr polyethylene glycoL (Miralax) packet 17 g 17 g, Oral, DAILY PRN, Starting on Sun04/10/22 at 0751, Until Sun04/14/22 at 1824, Constipation, If senna ineffective, Routine potassium, sodium phosphates (Neutra-Phos) 280-160-250 mg oral packet 3 g 3 g, Oral, 4 TIMES DAILY, 4 doses, First dose on Sun04/10/22 at 0930, Last dose on Sun04/10/22 at 2100, Take with full glass of water, Routine Given 04/10/2022 8:55 PM EDT 3 g Given 04/10/2022 5:00 PM EDT 3 g Given 04/10/2022 12:17 PM EDT 3 g predniSONE (Deltasone) tablet 40 mg 40 mg, Oral, DAILY, 4 doses, First dose on Sun04/10/22 at 0900, Last dose on Sun04/13/22 at 0900, Routine Given 04/13/2022 8:54 AM EDT 40 mg Given 04/12/2022 8:52 AM EDT 40 mg Given 04/11/2022 8:40 AM EDT 40 mg senna-docusate (Pericolace) 8.6-50 mg per tablet 2 tablet 2 tablet, Oral, DAILY PRN, Starting on Sun04/10/22 at 0751, Until Sun04/14/22 at 1824, Constipation, Routine sodium chloride 0.9 % (flush) (BD PosiFlush Normal Saline 0.9) flush 5 mL 5 mL, Intravenous, 2 TIMES DAILY, First dose on Sun04/09/22 at 2100, Until Discontinued, Routine Given 2022 8:26 AM EDT 5 mLs Given 04/13/2022 9:20 PM EDT 5 mLs Given 04/13/2022 8:55 AM EDT 5 mLs sodium chloride 0.9% 1,000 mL IV bolus at 2,000 mL/hr, Intravenous, ONCE, 1 dose, On 04/09/22 at 0855 New Bag 04/09/2022 9:06 AM EDT 2000 mL/hr sodium chloride 0.9% 1,000 mL IV bolus at 2,000 mL/hr, Intravenous, ONCE, 1 dose, On 04/09/22 at 0925 New Bag 04/09/2022 10:32 AM EDT 2000 mL/hr vancomycin (Vancocin) 1.5 gram in sodium chloride 0.9% 500 mL infusion 1.5 g, Intravenous, at 333.3 mL/hr, ONCE, 1 dose, On 04/09/22 at 0925, Maximum infusion rate is 1 gram/hour. If flushing of the face, neck, upper body, arms, and/or back occurs decrease infusion rate by 50% to reduce the severity of symptoms. This medication may have an associated drug lab level. Please see MAR for scheduled level. Warning Vesicant/Irritant Medication , STAT New Bag 04/09/2022 10:32 AM EDT 1.5 g 333.3 mL/hr documented in this encounter Active and Recently Administered Medications Times are shown in EDT. Scheduled Medication Order 04/12/2022 04/13/2022 2022 apixaban (Eliquis) tablet 5 mg 5 mg, Oral, 2 TIMES DAILY, First dose on 04/09/22 at 2100, Until Discontinued, Anticoagulant, Routine, Restricted anticoagulant, choose the most appropriate response: Continuation of ongoing therapy 0852 (Given - Provider: Sharmila Ceja LPN)2030 (Given - Provider: Kyra Wong RN) 0854 (Given - Provider: Olivia Stern RN)2119 (Given - Provider: Katy Klein RN) 824 (Given - Provider: Christina Cuevas RN) doxycycline monohydrate (Monodox) capsule 100 mg (CANCELED) 100 mg, Oral, 2 TIMES DAILY, First dose on 04/09/22 at 2100, Until Discontinued, Routine, Indication for (Active or Suspected): Pneumonia (Community) 0852 (Given - Provider: Sharmila Ceja LPN)2031 (Given - Provider: Kyra Wong RN) 0854 (Given - Provider: Olivia Stern, ILANA) doxycycline monohydrate (Monodox) capsule 100 mg 100 mg, Oral, 2 TIMES DAILY, 18 doses, First dose (after last modification) on [place] 04/13/22 at 2100, Last dose on 04/22/22 at 0900, Routine, Indication for (Active or Suspected): Pneumonia (Community) 2120 (Given - Provider: Katy Klein RN) 0826 (Given - Provider: Christina Cuevas, RN) ipratropium-albuteroL (Duoneb) 0.5 mg-3 mg(2.5 mg base)/3 mL nebulizer solution 3 mL 3 mL, Nebulization, EVERY 6 HOURS, First dose on Sun04/09/22 at 1900, Until Discontinued, Routine 0100 (Not Given - Provider: Kyra Wong RN - Reason: Patient/family refused)0613 (Given - Provider: Kyra Wong RN)1318 (Given - Provider: Thania Lepe RN)1910 (Given - Provider: Sharmila Ceja LPN) 0100 (Not Given - Provider: Kyra Wong RN - Reason: Patient/family refused)0649 (Given - Provider: Kyra Wong RN)1253 (Given - Provider: Carmen Biswas LPN)1842 (Given - Provider: Carmen Biswas LPN) 0221 (Not Given - Provider: Katy Klein RN - Reason: Patient/family refused)0604 (Given - Provider: Katy Klein RN)1300 (Not Given - Provider: Christina Cuevas RN - Reason: Patient/family refused) levoFLOXacin (Levaquin) tablet 750 mg 750 mg, Oral, EVERY MORNING, 9 doses, First dose (after last modification) on Sun04/14/22 at 0700, Last dose on 04/22/22 at 0700, Routine, Indication for (Active or Suspected): Pneumonia (Community), Restricted Antibiotic: Please indicate the most appropriate choice: ID Approval by Regulo Rayo [id number] (Given - Provider: Katy Klein, ILANA) metFORMIN (Glucophage) tablet 500 mg 500 mg, Oral, 2 TIMES DAILY WITH MEALS, First dose on Sun04/14/22 at 1700, Until Discontinued, Routine pantoprazole EC (Protonix) tablet 40 mg (COMPLETED) 40 mg, Oral, ONCE, On Sun04/12/22 at 0415, 1 dose 0325 (Given - Provider: Kyra Wong, ILANA) pantoprazole EC (Protonix) tablet 40 mg 40 mg, Oral, DAILY, First dose on Sun04/14/22 at 0945, Until Discontinued, DO NOT CRUSH OR OPEN 0905 (Given - Provider: Christina Cuevas, ILANA) piperacillin-tazobactam (Zosyn) 3.375 g vial attach to sodium chloride 0.9% 50 mL Mini-Bag Plus () 3.375 g, Intravenous, EVERY 8 HOURS, 13 doses, First dose on Sun04/09/22 at 1900, Last dose on Sun04/13/22 at 2100, Administer over 4 Hours, Warning Vesicant/Irritant Medication Do not administer or Y-site with lactated ringers., Indication for (Active or Suspected): Pneumonia (Community) 0225 (Stopped - Provider: Kyra Wong RN)0613 (New Bag - Provider: Kyra Wong RN)1013 (Stopped - Provider: Thania Lepe RN)1318 (New Bag - Provider: Thania Lepe RN)1718 (Stopped - Provider: Thania Lepe RN)2032 (New Bag - Provider: Kyra Wong RN) 0032 (Stopped - Provider: Kyra Wong RN)0519 (New Bag - Provider: Kyra Wong RN)0919 (Stopped - Provider: Christina Cuevas RN)1253 (New Bag - Provider: Carmen Biswas LPN)1653 (Stopped - Provider: Christina Cuevas RN)2100 (Not Given - Provider: Katy Klein, RN - Reason: See comment - Comment: order discontinued) piperacillin-tazobactam (Zosyn) 3.375 g vial attach to sodium chloride 0.9% 50 mL Mini-Bag Plus (COMPLETED) 3.375 g, Intravenous, ONCE, 1 dose, On Sun04/13/22 at 2215, Administer over 4 Hours, Warning Vesicant/Irritant Medication Do not administer or Y-site with lactated ringers., Indication for (Active or Suspected): Pneumonia (Community) 2136 (New Bag - Provider: Katy Klein RN) 136 (Stopped - Provider: Katy Klein RN) predniSONE (Deltasone) tablet 40 mg (COMPLETED) 40 mg, Oral, DAILY, 4 doses, First dose on Sun04/10/22 at 0900, Last dose on Sun04/13/22 at 0900, Routine 0852 (Given - Provider: Sharmila Ceja LPN) 0854 (Given - Provider: Olivia Stern RN) senna-docusate (Pericolace) 8.6-50 mg per tablet 2 tablet 2 tablet, Oral, NIGHTLY, First dose on 04/09/22 at 2100, Until Discontinued, Routine 2100 (Not Given - Provider: Kyra Wong RN - Reason: Patient/family refused) 2119 (Not Given - Provider: Katy Klein RN - Reason: Patient/family refused) sodium chloride 0.9 % (flush) (BD PosiFlush Normal Saline 0.9) flush 5 mL 5 mL, Intravenous, 2 TIMES DAILY, First dose on Sun04/09/22 at 2100, Until Discontinued, Routine 1032 (Given - Provider: Thania Lepe RN)2030 (Given - Provider: Kyra Wong RN) 0855 (Given - Provider: Olivia Stern RN)2119 (Given - Provider: Katy Klein RN) 0826 (Given - Provider: Christina Cuevas RN) PRN Medication Order 04/12/2022 04/13/2022 2022 acetaminophen (Tylenol) tablet 975 mg 975 mg, Oral, EVERY 6 HOURS PRN, Starting on Sun04/10/22 at 1143, Until Sun04/14/22 at 1824, Pain, Fever, Administer for temperature greater than or equal to 38.2 degrees celsius. Maximum daily dose of acetaminophen from all sources not to exceed 4,000 mg. When ordered for pain, acetaminophen should be given even when other ordered pain medications are indicated., Routine albuteroL (Proventil) nebulizer solution 2.5 mg 2.5 mg, Nebulization, EVERY 2 HOURS PRN, Starting on Sun04/09/22 at 1813, Until Sun04/14/22 at 1824, Wheezing, Routine 2158 (Given - Provider: Kyra Wong RN) lidocaine (Xylocaine) 1% (10 mg/mL) injection 3 mg 3 mg (0.3 mL), Subcutaneous, ONCE PRN, 1 dose, Starting on Sun04/09/22 at 1813, Until Sun04/14/22 at 1824, for discomfort with PIV insertion, Routine melatonin tablet 3 mg 3 mg, Oral, NIGHTLY PRN, Starting on Sun04/09/22 at 1813, Until Sun04/14/22 at 1824, Sleep, Routine polyethylene glycoL (Miralax) packet 17 g 17 g, Oral, DAILY PRN, Starting on Sun04/10/22 at 0751, Until Sun04/14/22 at 1824, Constipation, If senna ineffective, Routine senna-docusate (Pericolace) 8.6-50 mg per tablet 2 tablet 2 tablet, Oral, DAILY PRN, Starting on Sun04/10/22 at 0751, Until Sun04/14/22 at 1824, Constipation, Routine sodium chloride 0.9 % (flush) (BD PosiFlush Normal Saline 0.9) flush 5-20 mL 5-20 mL, Intravenous, EVERY 1 MIN PRN, Starting on Sun04/09/22 at 1813, Until Sun04/14/22 at 1824, flush, Flush pertains to all indwelling lines. Flush per protocol found in the job aid using the link provided on this medication record., Routine documented in this encounter Additional Health Concerns Infection Onset Date Last Indicated Resolved Time Rule Out COVID-19 04/09/2022 04/09/2022 04/09/2022 3:35 PM EDT Rule Out Respiratory 04/09/2022 04/09/2022 022 3:35 PM EDT documented as of this encounter Care Teams Portfolio Administrator Relationship Specialty Start Date End Date Susannah Perez MD [address] [place] [address] PCP - General Family Medicine 04/22/20 documented as of this encounter
--- OUTSIDE RECORDS SUMMARY | 2024-04-21 15:16 | XMS_ITS | Encounter Summary ---
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 Phone Susannah Malhotra MD Primary Care Provider Reason for Visit * Reason Onset Date Comments Other 05/25/2021 LVM, notified Pt prednisone Rx was ready at pharamcy, left call back for any questions Encounter Details Date Type Department Care Team (Late st Contact Info) Description 05/25/2021 [place] [phone] Nini Quiroz RN Other (LVM, notified Pt prednisone Rx was ready at pharamcy, left call back for any questions) Social History Tobacco Use Types Packs/Day Years [...] 11:00 AM EDT [place] [phone] Cristian Carolina Jr., MD [facility] [place] [address] documented as of this encounter Visit Diagnoses Not on filedocumented in this encounter 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
--- OUTSIDE RECORDS SUMMARY | 2024-04-21 15:16 | XMS_ITS | Encounter Summary ---
Author Organization [facility] [place] [address] Care Team Providers Care Clip Bolter And Wrapper Name Role Phone Susannah Malhotra MD Primary Care Provider [phone] Encounter Details Date Type Department Care Team (Latest Contact Info) Description 05/01/2022 8:00 AM EDT TH Visit (TeleHealth) [place] [address] Elkin Dixon MD [facility] [place] [address] Other acute pulmonary embolism with acute cor pulmonale Social History Tobacco Use Types Packs/Day Years [...] on file documented as of this encounter Progress Notes * Elkin Dixon MD - 05/01/2022 8:00 AM EDT CARDIOLOGY/VASCULAR MEDICINE TELE VISIT NOTE Jeremiah Gottliebkins 04/28/22 The patient consented to this being a virtual visit. HPI: Mr. Savage is a very pleasant 67 year old man with history of COPD and HTN whom I met when I was on hospital service and he presented with submassive PE. He presented with exertional fatigue, pleuritic chest pain, and dyspnea on exertion to outside hospital. On presentation, he was tachycardic with stable BP, ECG with S1Q3T3; CTA showed bilateral PE with RV strain. He was transferred to [facility] cardiology where he had mildly elevated Troponin 0.02 and proBNP ~2600. TTE showed moderate RV dilationwith moderately reduced function and PASP 48 mm Hg. DVT duplex showed acute femoral vein DVT and chronic popliteal DVT. He felt significantly better on AC alone and thus advanced therapies not pursued. He was discharged on apixaban. Prior to presentation for VTE, he was hospitalized for pneumothorax for ruptured pulmonary bleb requiring chest tube placement about 3 months prior. He also had rightpopliteal DVT after knee surgery many years ago. No family history of VTE. Up to date on cancer screening including colonoscopy and prostate.?? I last saw him on July 2020. At that time, we switched to apixaban 2.5 mg BID for secondary prevention (although it appears that he's on 5 mg twice daily). He was admitted 04/09-04/14/2022 for COPD exacerbation and PNA. He is now able to walk a flight of stairs before getting short of breath, and longer distances on flat surface. He is not back to baseline yet after having pneumonia and COPD exacer bation. He has no angina. He has mild chronic lower extremity edema where he had his knee surgery and prior popliteal DVT he denies PND, orthopnea, palpitations, presyncope or syncope. He has been tolerating anticoagulation without issues. No evidence of bleeding. Brief ROS: Activity level: Independent with ADLs No new orthopnea, PND, LE edema. No lightheadedness, dizziness, syncope/pre- syncope. No new CP. Medications: Current Outpatient Medications Medication Sig Dispense Refill ??? metFORMIN (FORTAMET) 500 mg Tablet Extended Rel 24 hr Take 1 tablet by mouth 2 times daily (with meals). 60 tablet 0 ??? Flovent HFA 220 mcg/actuation HFA Aerosol Inhaler Inhale 1 puff into the lungs 2 times daily. ??? apixaban (Eliquis) 5 mg Tablet Take 5 mg by mouth 2 times daily. ??? folic acid (Folvite) 1 mg Tablet Take 1 mg by mouth daily. ??? omeprazole (PriLOSEC) 20 mg Capsule, Delayed Release(E.C.) Take 20 mg by mouth daily. ??? albuteroL 90 mcg/actuation HFA Aerosol Inhaler Inhale 2 puffs into the lungs every 6 hours as needed. ??? umeclidinium-vilanterol (ANORO ELLIPTA) 62.5-25 mcg/actuation Disk with Device Inhale 1 Inhalation into the lungs daily. 60 each 5 ??? lisinopril (PRINIVIL;ZESTRIL) 5 mg Tablet Take 5 mg by mouth daily. 3 Medications were reviewed with patient. Objective Data: VS at home: SBP 120s Labs: Lab Results Component Value Date WBC 12.1 (H) 2022 HGB 13.1 (L) 2022 HCT 39.0 (L) 2022 MCV 87.4 2022 PLATELET 284 2022 No results for input(s): NA, K, CL, CO2, BUN, CREATININE, GLUCOSE in the last 168 hours. Lab Results Component Value Date INR 1.2 06/23/2019 Lab Results Component Value Date CHLPL 173 06/24/2019 HDL 40 06/24/2019 CHOLHDL 4.3 06/24/2019 TRIG 56 06/24/2019 LDLCHOL 122 06/24/2019 EKG??06/23/19:??NSR 90 bpm, S1Q3T3, anterior TWA? TTE 11/11/19: 1. The left ventricular chamber size is normal. ??There is normal global left ventricular systolic function. ??Ejection fraction is estimated to be 65%. ??There are no left ventricular segmental wall motion abnormalities. 2. The right ventricle is mildly dilated. ??Right ventricular global systolic function is mildly reduced. 3. No significant valvular abnormalities. 4. There is mild dilatation of the aortic root (4.1 cm). 5. There is mild dilatation of the ascending aorta (3.8 cm). 6. Other details as noted below. 7. IMPRESSION: As compared to the prior echo report from 06/24/2019, the findings are similar. ??RV is probably borderline low normal at this point.? TTE??07/15/19: 1. ??The left ventricular chamber size is normal. ??Left ventricular wall thickness is normal. ??The visually estimated left ventricular ejection fraction is 55%. ??There are no left ventricular segmental wall motion abnormalities. 2. The right ventricle is mildly dilated. ??Right ventricular global systolic function is mildly reduced. ??The estimated pulmonary artery systolic pressure is 32 mmHg. 3. There is no hemodynamically significant valve disease. 4. See remainder of report for additional findings. ??Compared to the TTE performed 06/24/19, RV enlargement and dysfunction appear less pronounced and the estimated PASP is lower. ?? TTE 06/24/19: 1. Patient with known pulmonary embolism. ??Prior study last night by the on-call fellow. 2. The right ventricle is moderately dilated. Right ventricular global systolic function is moderately reduced. Septal motion is consistent with RV volume overload. The estimated pulmonary artery systolic pressure is 48 mmHg. 3. The left ventricular chamber size is normal. Basal septal hypertrophy is observed. There is no evidence of LVOT obstruction. There is normal global left ventricular systolic function. The quantitative left ventricular ejection fraction by biplane Engel's method is 60%. There are no left ventricular segmental wall motion abnormalities. 4. There is normal bi-atrial size. 5. There is no hemodynamically significant valvular disease. 6. Please see remainder of report for additional findings.? DVT duplex 06/24/19: Interpretation: ?? RIGHT: Acute (femoral vein very distal thigh) and chronic (popliteal) non-occlusive DVT. Cannot entirely exclude additional small, focal non-occlusive DVT in the upper calf due to suboptimal visualization. ? LEFT: ??No evidence of lower extremity deep venous thrombosis.?? Assessment: #1 Submassive (intermediate-high risk) PE #2 RLE DVT, recurrent ?? Mr. Savage is a very pleasant 67 year old man with history of hypertension, COPD who presents for follow-up of submassive (intermediate-high risk) PE June 2019 and RLE DVT, conservatively managed. He continues on anticoagulation without issues. We previously switched him to low-dose apixaban in July 2020 but he reports that he has continued on apixaban 5 mg twice daily and has done well on this. Thus, it is resulted continue this dose of apixaban. If he has any issues with bleeding in the future, can switch to apixaban 2.5 mg twice daily for secondary prevention continue long-term. Ap ixaban 2.5 mg twice daily has similar efficacy and better safety for secondary VTE when compared toapixaban 5 mg twice daily. Plan 1. Continue apixaban 5 mg twice daily. 2. Return as needed. I spent a total of 10 minutes associated with this encounter including chart review, the patient encounter, and documentation, of which more than 50% was with direct patient contact. Elkin Dixon MD, MPH, RPVI, FACC, FS Cardiovascular Demographic AnalystRvda Master Certified Rv Technicianinbound [place] [address] documented in this encounter Plan of Treatment Upcoming Encounters Date Type Department Care Team (Late st Contact Info) Description 05/02/2024 11:00 AM EDT Office [place] [address] Cristian Carolina Jr., MD [facility] [address] [place] [address] documented as of this encounter Visit Diagnoses Diagnosis Other acute pulmonary embolism with acute cor pulmonale documented in this encounter Care Teams Clip Bolter And Wrapper Relationship Specialty Start Date End Date Susannah Malhotra MD [address] [place] [address] PCP - General Family Medicine 04/22/20 documented as of this encounter
--- OUTSIDE RECORDS SUMMARY | 2024-04-21 15:16 | XMS_ITS | Encounter Summary ---
[place] [address] Care Team Providers Care Photo Journalist Name Role Phone Susannah Malhotra MD Primary Care Provider [phone] Reason for Visit * Reason Onset Date Comments Abnormal X-ray 09/13/2021 CT order requisi tion Encounter Details Date Type Department Care Team (Late st Contact Info) Description 09/13/2021 [place] [phone] Carlos Casillas RN Abnormal X-ray (CT order requisition) Social History Tobacco Use Types Packs/Day Years Used Date Smoking Tobacco: Former Cigarettes 1.5 40 0 11/17/1977 - 11/17/2017 Smokeless Tobacco: Never Sex and Gender Information Value Date Recorded Sex Assigned at Not on file Gender Identity Not on file Sexual Orientation Not on file documented as of this encounter Miscellaneous Notes * Telephone Encounter - Carlos Casillas RN - 09/13/2021 12:06 PM [place] [id number] [place] withOUT contrast, signed by Dr. Younger, to [facility]. Attached to this was the following items: Patient demographics Fax submission confirmation time stamped for 09/13/2021 @ 1222. 5 pages with cover sheet. documented in this encounter Plan of Treatment Upcoming Encounters Date Type Department Care Team (Late st Contact Info) Description 05/02/2024 11:00 AM EDT Office [place] [address] Cristian Carolina Jr., MD [facility] [place] [address] documented as of this encounter Visit Diagnoses Not on filedocumented in this encounter Care Teams Photo Journalist Relationship Specialty Start Date End Date Susannah Malhotra MD [address] [place] [address] PCP - General Family Medicine 04/22/20 documented as of this encounter
--- OUTSIDE RECORDS SUMMARY | 2024-04-21 15:16 | XMS_ITS | Encounter Summary ---
Author Organization [facility] [place] [address] Care Team Providers Care Avionics Electronics Technician Name Role Phone Susannah Malhotra MD Primary Care Provider [phone] Encounter Details Date Type Department Care Team (Latest Contact Info) Description 04/26/2023 Travel Social History Tobacco Use Types Packs/Day [...] 11:00 AM EDT Office [place] [address] Cristian Carolina Jr., MD [facility] [place] [address] documented as of this encounter Visit Diagnoses Not on filedocumented in this encounter Care Teams Avionics Electronics Technician Relationship Specialty Start Date End Date Susannah Malhotra MD [address] [place] [address] PCP - General Family Medicine 04/22/20 documented as of this encounter
--- OUTSIDE RECORDS SUMMARY | 2024-04-21 15:16 | XMS_ITS | Encounter Summary ---
Author Organization [facility] [place] [address] [place] [address] Care Team Providers Care Surgical Instrument Mechanic Name Role Phone Susannah Malhotra MD Primary Care Provider [phone] Encounter Details Date Type Department Care Team (Late st Contact Info) Description 09/29/2021 [place] [phone] Russel Younger MD [facility] [place] [address] Lung nodule Social History Tobacco Use Types Packs/Day Years [...] 11:00 AM EDT [place] [address] Cristian Carolina Jr., MD [facility] [place] [address] documented as of this encounter Visit Diagnoses Diagnosis Lung nodule Solitary pulmonary nodule documented in this encounter Care Teams Surgical Instrument Mechanic Relationship Specialty Start Date End Date Susannah Malhotra MD [address] [place] [address] PCP - General Family Medicine 04/22/20 documented as of this encounter
--- OUTSIDE RECORDS SUMMARY | 2024-04-21 15:16 | XMS_ITS | Encounter Summary ---
Author Organization [facility] [place] [place] [address] Care Team Providers Care Perfume Maker Name Role Phone Susannah Malhotra MD Primary Care Provider [phone] Encounter Details Date Type Department Care Team (Late st Contact Info) Description 03/28/2022 11:30 AM EDT Office [place] [address] Russel Younger MD [facility] [place] [address] Stage 2 moderate COPD by GOLD classification; Acute exacerbation of chronic obstructive pulmonary disease Social History Tobacco Use Types Packs/Day Years Used Date Smoking Tobacco: Former Cigarettes 1.5 40 0 11/17/1977 - 11/17/2017 Smokeless Tobacco: Never Sex and Gender Information Value Date Recorded Sex Assigned at Not on file Gender Identity Not on file Sexual Orientation Not on file documented as of this encounter Last Filed Vital Signs Vital Sign Reading Time Taken Comments Blood Pressure 135/95 03/28/2022 11:39 AM EDT Pulse 70 03/28/2022 11:39 AM EDT Temperature 35.8 ??C (96.4 ??F) 03/28/2022 11:39 AM E DT Respiratory Rate 16 03/28/2022 11:39 AM EDT Oxygen Saturation 99% 03/28/2022 11:39 AM EDT Inhaled Oxygen Concentration - - Weight 104 kg (229 lb 3.2 oz) 03/28/2022 11:39 A M EDT Height 180.3 cm (5' 11) 03/28/2022 11:39 AM EDT Body Mass Index 31.97 03/28/2022 11:39 AM EDT documented in this encounter Progress Notes * Russel Younger MD - 03/28/2022 11:30 AM EDT Pulmonary Follow-Up Visit Date of Encounter: 03/28/22 PCP: Susannah Malhotra MD [address] [place] [address] Pulmonary Background: ?? GOLD stage II COPD, FEV1 51% predicted in 2019, completed pulmonary rehab December 2019 [place], [place] ?? Ex-smoker, quit 2017 ?? Prior left pneumothorax treated with chest tube only, no recurrence ?? Remote history of pulmonary embolism, on apixaban ?? 1.7 cm right upper lobe nodule - improved on follow up imaging ?? Recurrent pneumonia Subjective: I saw Jeremiah back in the pulmonary clinic today. Overall he is really doing well with stable exertional dyspnea but not much in the way of cough or sputum. He has been exercising is actually been able to climb 3 flights of stairs without supplemental oxygen over the last few months. This is a huge improvement over 1 flight with supplemental oxygen about a year ago. He is using the Anoro every dayand has been experimenting to see if his pulmonary symptoms are any different when he takes the Flovent and when he does not take the Flovent. Overall he does not think the Flovent is doing all that much. We reviewed his most recent CT scan which shows no signs of suspicious pulmonary nodules Current Outpatient Medications Medication Sig Dispense Refill ??? apixaban (Eliquis) 5 mg Tablet Take 5 mg by mouth 2 times daily. ??? predniSONE (Deltasone) 10 mg Tablet TAKE 4 TABLETS DAILY FOR 3 DAYS; 3 TABLETS DAILY FOR 3 DAYS; 2 TABLETS DAILY FOR 2 DAYS; THEN 1 TABLET DAILY FOR 2 DAYS 27 tablet 0 ??? folic acid (Folvite) 1 mg Tablet [...] the lungs daily. 60 each 5 ??? PROAIR HFA 90 mcg/actuation HFA Aerosol Inhaler INHALE TWO PUFFS BY MOUTH EVERY 6 HOURS NEEDED 98 ??? lisinopril (PRINIVIL;ZESTRIL) 5 mg Tablet TAKE ONE TABLET BY MOUTH EVERY DAY 3 ??? predniSONE (Deltasone) 10 mg Tablet Take 1 tablet by mouth daily for 10 days. Take by mouth. 40mg daily for 3 days, then 30 mg daily for 3 days, then 20 mg daily for 2 days, then 10 mg daily for2 days, then STOP. 27 tablet 1 ??? albuteroL 90 mcg/actuation HFA Aerosol Inhaler Inhale 2 puffs into the lungs every 4 hours as needed for Wheezing. Use with spacer 1 each 1 ??? amoxicillin-clavulanate (Augmentin) 875-125 mg Tablet Take 1 tablet by mouth 2 times daily. 20 tablet 1 No current facility-administered medications for this visit. Examination: BP (!) 135/95 Pulse 70 Temp 35.8 ??C (96.4 ??F) (Temporal) Resp 16 Ht 180.3 cm (5' 11) Wt 104 kg (229 lb 3.2 oz) SpO2 99% BMI 31.97 kg/m?? Looks well, talking in full sentences No cyanosis, no clubbing, no peripheral edema Chest clear to auscultation with no crackles no wheeze Data Review: ?? CT Chest December 2021 showed resolution of the previously seen pulmonary opacities and persistent significant emphysema Decision Making/Plan: 1. Stage 2 moderate COPD by GOLD classification 2. Acute exacerbation of chronic obstructive pulmonary disease Jeremiah is really doing well with his COPD. Continue Anoro and I think okay to reserve Flovent for allergy season and exacerbations. Prednisone and Augmentin remain his sick plan medications and I renewed prescriptions for these today. I renewed his albuterol inhaler and we reviewed appropriate inhaler technique. I will plan to see him again in about a years time and we can discuss ongoing need for CT imaging at that visit. He may be a candidate for lung cancer screening in due course but for now I would reserve CT imaging for a change in pulmonary symptoms that does not improve with antibiotics and prednisone. I encouraged him to keep up the great work with regular exercise. Medication ordered or changed during this encounter, will not show discontinued medications Medications ??? predniSONE (Deltasone) 10 mg Tablet Sig: Take 1 tablet by mouth daily for 10 days. Take by mouth. 40 mg daily for 3 days, then 30 mg daily for 3 days, then 20 mg daily for 2 days, then 10 mg daily for 2 days, then STOP. Dispense: 27 tablet Refill: 1 Only fill if patient calls ??? albuteroL 90 mcg/actuation HFA Aerosol Inhaler Sig: Inhale 2 puffs into the lungs every 4 hours as needed for Wheezing. Use with spacer Dispense: 1 each Refill: 1 OK to sub brand if insurance mandates. Preference is most cost-effective covered MDI first. ??? amoxicillin-clavulanate (Augmentin) 875-125 mg Tablet Sig: Take 1 tablet by mouth 2 times daily. Dispense: 20 tablet Refill: 1 Only fill if patient calls Outpatient Established Visits Time MDM 38324 10-19 Straightforward 75759 20-29 Low 30291 30-39 Moderate X 75492 40-54 High 49117 + 15 mins Russel Younger MD documented in this encounter Plan of Treatment Upcoming Encounters Date Type Department Care Team (Late st Contact Info) Description 05/02/2024 11:00 AM EDT Office [place] [address] Cristian Carolina Jr., MD [facility] [place] [address] documented as of this encounter Visit Diagnoses Diagnosis Stage 2 moderate COPD by GOLD classification Acute exacerbation of chronic obstructive pulmonary disease Obstructive chronic bronchitis with exacerbation documented in this encounter Care Teams Perfume Maker Relationship Specialty Start Date End Date Susannah Malhotra MD [address] [place] [address] PCP - General Family Medicine 04/22/20 documented as of this encounter
--- OUTSIDE RECORDS SUMMARY | 2024-04-21 15:16 | XMS_ITS | Encounter Summary ---
Author Organization [facility] [place] [address] [place] [address] Care Team Providers Care Interior Painter Name Role Phone Susannah Malhotra MD Primary Care Provider [phone] Encounter Details Date Type Department Care Team (Late st Contact Info) Description 08/22/2021 Telephone [place] [phone] Risa Garcia Social History Tobacco Use Types [...] 11:00 AM EDT Office [place] [address] Cristian Carolina Jr., MD [facility] [address] [place] [address] documented as of this encounter Visit Diagnoses Not on filedocumented in this encounter Care Teams Interior Painter Relationship Specialty Start Date End Date Susannah Malhotra MD [address] [place] [address] PCP - General Family Medicine 04/22/20 documented as of this encounter
--- OUTSIDE RECORDS SUMMARY | 2024-04-21 15:16 | XMS_ITS | Encounter Summary ---
[facility] Organization [facility] Address [facility] [place] [place] [address] Care Team Providers Care Hairspring Studder Name Role Phone Susannah Malhotra MD Primary Care Provider [phone] Encounter Details Date Type Department Care Team (Latest Contact Info) Description 02/17/2021 12:30 PM EDT TH Visit (TeleHealth) [place] [address] Russel Younger MD [facility] [place] [address] Acute exacerbation of chronic obstructive pulmonary disease; Stage 2 moderate COPD by GOLD classification; GARRISON (dyspnea on exertion); Exercise hypoxemia; Ex-smoker Social History Tobacco Use Types Packs/Day Years Used Date Smoking Tobacco: Former Cigarettes 1.5 40 0 11/17/1977 - 11/17/2017 Smokeless Tobacco: Never Sex and Gender Information Value Date Recorded Sex Assigned at Not on file Gender Identity Not on file Sexual Orientation Not on file documented as of this encounter Progress Notes * Russel Younger MD - 02/17/2021 12:30 PM EDT Pulmonary Telehealth Follow-Up Visit This visit replaces an in person visit due to the COVID-19 pandemic. Patient verbally consents to this visit and understands that this visit may be billed, similar to a clinic office visit. Date of Encounter: 02/18/21 PCP: Susannah Malhotra MD [address] [place] [address] Pulmonary Background: ?? GOLD stage II COPD, FEV1 51% predicted in 2019, completed pulmonary rehab December 2019 [place], [place] ?? Ex-smoker, quit 2017 ?? Prior left pneumothorax treated with chest tube only, no recurrence ?? Remote history of pulmonary embolism, on apixaban ?? 1.7 cm right upper lobe nodule - follow up imaging 2020 ?? Recurrent pneumonia Subjective: I last saw Jimmy about 10 days ago and started a course of prednisone and Augmentin to treat possiblerecurrent pneumonia. At that time I also ordered a portable oxygen concentrator and plan to review the CT scan of the chest that he had during his last hospital admission at [place], January 2021. Please to say that the prednisone and antibiotics worked well and improved the cough, sputum production and dyspnea Jimmy had been experiencing. He has 2 more days of antibiotic therapy left but feels he is essentially back to his baseline. He has received a portable oxygen concentrator and is planning to start using it this coming weekend. I reviewed his CT scan as below Data Review: ?? I personally reviewed Jimmy's latest CT scan of the chest performed January 2021 -significant emphysema and some right lower lobe atelectasis/scarring but no suspicious nodules I can see. ?? Sputum culture from early February 2021 is negative for AFB+ organisms so far but did grow mixed normal upper respiratory do without a predominant species Decision Making/Plan: ??? Overall doing okay from the COPD perspective and the use of a portable oxygen concentrator should improve his exercise tolerance. I have encouraged him to use it during his daily exercise (walk in the apartment building including up and down stairs) ??? Not totally clear what is driving his recurrent pneumonia overall I think some aspiration mightbe possible given the distribution of the opacities on CT, normal upper respiratory do on sputumculture. I do not see major pulmonary structural abnormality and nothing obvious to suggest an immunodeficiency ??? We agreed I would provide him with prednisone and Augmentin that he could use as an outpatient if pneumonic symptoms return. ??? I will see him again in 3 months and if he is needing antibiotics and prednisone on a frequent basis will arrange a swallow study at that time. If he is hospitalized again for pneumonia I think an inpatient swallow study would be important Medication ordered or changed during this encounter, [...] days, then STOP. Dispense: 27 tablet Refill: 2 Only fill if patient calls ??? amoxicillin-clavulanate (Augmentin) 875-125 mg Tablet Sig: Take 1 tablet by mouth 2 times daily for 7 days. Dispense: 14 tablet Refill: 2 Only fill if patient calls Outpatient Established Visits Time MDM 14410 10-19 Straightforward 91380 20-29 Low X 74666 30-39 Moderate 50316 40-54 High 92222 + 15 mins Russel Younger MD documented in this encounter Plan of Treatment Upcoming Encounters Date Type Department Care Team (Late st Contact Info) Description 05/02/2024 11:00 AM EDT Office [place] [address] Cristian Carolina Jr., MD [facility] [place] [address] documented as of this encounter Visit Diagnoses Diagnosis Acute exacerbation of chronic obstructive pulmonary disease Obstructive chronic bronchitis with exacerbation Stage 2 moderate COPD by GOLD classification GARRISON (dyspnea on exertion) Other dyspnea and respiratory abnormality Exercise hypoxemia Hypoxemia Ex-smoker Personal history of tobacco use, presenting hazards to health documented in this encounter Care Teams Hairspring Studder Relationship Specialty Start Date End Date Susannah Malhotra MD [address] [place] [address] PCP - General Family Medicine 04/22/20 documented as of this encounter
--- OUTSIDE RECORDS SUMMARY | 2024-04-21 15:16 | XMS_ITS | Encounter Summary ---
Author Organization [facility] [place] [place] [address] Care Team Providers Care Crack Off Person Name Role Phone Susannah Malhotra MD Primary Care Provider [phone] Encounter Details Date Type Department Care Team (Late st Contact Info) Description 02/08/2021 [place]phone [place] [address] Heidi Bo RT Social History Tobacco Use Types Packs/Day Years Used Date Smoking Tobacco: Former Cigarettes 1.5 40 0 11/17/1977 - 11/17/2017 Smokeless Tobacco: Never Sex and Gender Information Value Date Recorded Sex Assigned at Not on file Gender Identity Not on file Sexual Orientation Not on file documented as of this encounter Miscellaneous Notes * Telephone Encounter - Heidi Bo RT - 02/08/2021 1:07 PM EDT provided demographics, oxygen orders and clinical documentation to Gissell from [facility] documented in this encounter Plan of Treatment Upcoming Encounters Date Type Department Care Team (Late st Contact Info) Description 05/02/2024 11:00 AM EDT Office [place] [phone] Cristian Carolina Jr., MD [facility] [address] PULMONARY MEDICINE [place], [place] [id number] documented as of this encounter Visit Diagnoses Not on filedocumented in this encounter Care Teams Crack Off Person Relationship Specialty Start Date End Date Susannah Malhotra MD [address] [place] [address] PCP - General Family Medicine 04/22/20 documented as of this encounter
--- OUTSIDE RECORDS SUMMARY | 2024-04-21 15:16 | XMS_ITS | Encounter Summary ---
[place] [address] Care Team Providers Care [employer] Special [employer] Teacher Name Role Phone Susannah Malhotra MD Primary Care Provider [phone] Reason for Visit * Reason Onset Date Comments Oxygen Dependence 04/26/2023 Home Oxygen Or ders Encounter Details Date Type Department Care Team (Late st Contact Info) Description 04/26/2023 [place] [phone] Carlos Casillas RN Oxygen Dependence (Home Oxygen Orders) Social History Tobacco Use Types Packs/Day Years [...] Telephone Encounter - Carlos Casillas RN - 04/27/2023 8:04 AM EDT Faxed completed Home Oxygen Orders, signed by Dr. Younger, to [facility]. Attached to this was the following items: Patient Demographics, Home O2 Eval documentation Fax submission confirmation time stamped for 04/26/2023 @ 7962. 5 pages with cover sheet. documented in this encounter Plan of Treatment Upcoming Encounters Date Type Department Care Team (Late st Contact Info) Description 05/02/2024 11:00 AM EDT [place] [address] Cristian Carolina Jr., MD [facility] [place] [address] documented as of this encounter Visit Diagnoses Not on filedocumented in this encounter Care Teams [employer] Special [employer] Teacher Relationship Specialty Start Date End Date Susannah Malhotra MD [address] [place] [address] PCP - General Family Medicine 04/22/20 documented as of this encounter
--- OUTSIDE RECORDS SUMMARY | 2024-04-21 15:16 | XMS_ITS | Encounter Summary ---
Author Organization [facility] [place] [address] Care Team Providers Care Extrusion Press Operator Name Role Phone Susannah Malhotra MD Primary Care Provider [phone] Reason for Visit * Reason Comments Medication Refill Encounter Details Date Type Department Care Team (Late st Contact Info) Description 06/09/2021 [place] [address] Russel Younger MD [facility] [place] [address] Acute exacerbation of chronic obstructive pulmonary disease [...] Telephone Encounter - Carlos Casillas RN - 06/17/2021 1:55 PM EDT RN called and discussed patient need. He notes that he was requesting a refill to have sick plan medication on-file for next potential exacerbation. Patient denied any other needs at this time, and will contact office if any arise. documented in this encounter Plan of Treatment Upcoming Encounters Date Type Department Care Team (Late st Contact Info) Description 05/02/2024 11:00 AM EDT Office [place] [address] Cristian Carolina Jr., MD [facility] [place] [address] documented as of this encounter Visit Diagnoses Diagnosis Acute exacerbation of chronic obstructive pulmonary disease Obstructive chronic bronchitis with exacerbation documented in this encounter Care Teams Extrusion Press Operator Relationship Specialty Start Date End Date Susannah Malhotra MD [address] [place] [address] PCP - General Family Medicine 04/22/20 documented as of this encounter
--- OUTSIDE RECORDS SUMMARY | 2024-04-21 15:16 | XMS_ITS | Encounter Summary ---
Author Organization [facility] Address [facility] [place] [address] Care Team Providers Care Sterile Preparation Technician Name Role Phone Susannah Malhotra MD Primary Care Provider [phone] Reason for Referral * Diagnostic Test (Routine) - Authorized Specialty Diagnoses / Procedures Referred By Cari lester Referred To Contact Radiology Diagnoses Ex-smoker Procedures CT Chest Screening Lung Cancer Russel Younger MD [facility] [place] [address] Referral ID Status Reason Start Date Expiration Date Visits Requested Visits Authorized [id number] Authorized Specialty Service Requested 04/26/2023 10/27/2024 1 1 Encounter Details Date Type Department Care Team (Late st Contact Info) Description 04/26/2023 11:00 AM EDT Office [place] [address] Russel Younger MD [facility] [place] [address] Stage 3 severe COPD by GOLD classification; GARRISON (dyspnea on exertion); Ex-smoker Social History Tobacco Use Types Packs/Day [...] EDT Temperature 36.3 ??C (97.4 ??F) 04/26/2023 1 0:50 AM EDT Respiratory Rate 20 04/26/2023 10:5 0 AM EDT Oxygen Saturation 97% 04/26/2023 10: 50 AM EDT Inhaled Oxygen Concentration - - Weight 100.1 kg (220 lb 9.6 oz) 023 10:50 AM EDT Height 179.1 cm (5' 10.5) 04/26/2023 1 0:50 AM EDT Body Mass Index 31.21 04/26/2023 10:50 AM EDT documented in this encounter Progress Notes * Russel Younger MD - 04/26/2023 11:00 AM EDT Pulmonary Follow-Up Visit Date of Encounter: 04/26/23 PCP: Susannah Malhotra MD [address] [place] [address] Pulmonary Background: GOLD stage II COPD, FEV1 51% predicted in 2018, completed pulmonary rehab December 2019 [place], [place] Ex-smoker, quit 2017 Prior left pneumothorax treated with chest tube only, no recurrence Remote history of pulmonary embolism, on apixaban 1.7 cm right upper lobe nodule - improved on follow up imaging Recurrent pneumonia 2019 onwards- last in April 2022 Subjective: Pneumonia April 2022 - made a good recovery. Able to climb 5 flights of stairs Iover the winter and feeling so good he stopped Anoro and Flovent in December. No deterioration in symptoms off inhaled therapy in January, February, March but did still use Pro Air prn. 3 weeks ago had COVID and took Paxlovid with significant improvement. Feels much better but not quite back to normal yet. Still a touch more dyspneic than usual and coughing up small amounts of clear / white sticky sputum - steadily improving. Confirmed remains smoke free. Last CT imaging April 2022. Current Outpatient Medications Medication Sig Dispense Refill sildenafiL (Viagra) 100 mg tablet TAKE ONE TABLET BY MOUTH 1/2 HOUR PRIOR TO INTERCOURSE triamcinolone (Kenalog) 0.1 % Cream APPLY A SMALL AMOUNT TO AFFECTED AREA(S) ONCE DAILY apixaban (Eliquis) 5 mg Tablet Take 5 [...] Take 5 mg by mouth daily. 3 metFORMIN (FORTAMET) 500 mg Tablet Extended Rel 24 hr Take 1 tablet by mouth 2 times daily (with meals). (Patient not taking: Reported on 04/26/2023) 60 tablet 0 Flovent HFA 220 mcg/actuation HFA Aerosol Inhaler Inhale 1 puff into the lungs 2 times daily. umeclidinium-vilanterol (ANORO ELLIPTA) 62.5-25 mcg/actuation Disk with Device Inhale 1 Inhalation into the lungs daily. (Patient not taking: Reported on 04/26/2023) 60 each 5 No current facility-administered medications for this visit. Examination: BP 123/81 (BP Location (NBP): Left arm, Patient Position: Sitting, BP Cuff Sizes: Large Adult (32-43 cm)) Pulse 74 Temp 36.3 ??C (97.4 ??F) (Temporal) Resp 20 Ht 179.1 cm (5' 10.5) Wt 100.1 kg (220 lb 9.6 oz) SpO2 97% BMI 31.21 kg/m?? Looks well, talking in full sentences No cyanosis, no clubbing, no peripheral edema Chest clear to auscultation with no crackles no wheeze Exertional oximetry shows significant ambulatory desaturation - 84% on room air with short walk. See respiratory therapy note from RT Jacob for full details. Data Review: Recent Data None Chu Prior Data CT April 2022: IMPRESSION: There is no pneumothorax. Extensive centrilobular emphysematous changes are demonstrated. Left-sided airspace disease and increased interstitial markings are noted particularly at the left base. This is new compared with prior chest CT and may represent infectious etiology. There is no adenopathy identified at this time. CT Chest December 2021 showed resolution of the previously seen pulmonary opacities and persistent significant emphysema Decision Making/Plan: 1. Stage 3 severe COPD by GOLD classification 2. GARRISON (dyspnea on exertion) 3. Ex-smoker Desiree Marquez has been doing well in the last year apart from an episode of COVID a few weeks ago. He's made a good recovery and still qualifies for oxygen therapy and will send a new prescription for this. Advised to consider restarting LABA / LAMA inhaled therapy (Anoro) as some data to suggest thisslows disease progression. CT lung cancer screening in May 2023 at [facility]. Follow up 1 year. Orders Placed This Encounter Procedures CT Chest Screening Lung Cancer Standing Status: Future Standing Expiration Date: 10/27/2024 Scheduling Instructions: To be done at [facility]. Please fax results to Dr Younger [phone] and send images to [facility] PACS system Order Specific Question: Where will study be performed? Answer: External [125] Order Specific Question: Clinical information / chu questions for radiologist: Answer: Asymptomatic but at high risk for lung cancer Order Specific Question: Smoking status: Answer: Former Order Specific Question: How many years ago did patient quit? Answer: 5 Order Specific Question: Pack Years: Answer: 40 Order Specific Question: Shared decision required for first billed scan - see link above for decision aid. Use the [employer] for documentation. Answer: This is not the first screen. Order Specific Question: Does the patient show any signs or symptoms of lung cancer? Answer: No Order Specific Question: Is this the first (baseline) CT or an annual exam? Answer: Annual [2] Order Specific Question: Is this a low dose CT or a routine CT? Answer: Low Dose CT [1] Home Oxygen Please provide lightest portable oxygen concentrator to go up to 4 pulse dose. Order Specific Question: Vendor Name/Contact information: Answer: [facility] Order Specific Question: Rate (LPM) Answer: 3 Order Specific Question: Route Answer: Nasal Order Specific Question: Hours per day of useage Answer: 16 Order Specific Question: # months service is needed (99= lifetime) Answer: 99 Order Specific Question: Portable needed: Answer: Yes Order Specific Question: SPO2 performed on Room Air? Answer: Yes Order Specific Question: Resting Date (Room Air) Answer: 04/26/2023 Order Specific Question: Resting SPO2% (Room Air) Answer: 94 Order Specific Question: Exercise Date (Room Air) Answer: 04/26/2023 Order Specific Question: Exercise SPO2% (Room Air) Answer: 88 Order Specific Question: SPO2 performed with Supplemental Oxygen? Answer: Yes Order Specific Question: Resting Date (Supplemental Oxygen) Answer: 04/26/2023 Order Specific Question: Resting SPO2% (Supplemental Oxygen) Answer: 97 Order Specific Question: Resting Rate - LPM (Supplemental Oxygen) Answer: 3 Order Specific Question: Exercise Date (Supplemental Oxygen) Answer: 04/26/2023 Order Specific Question: Exercise SPO2% (Supplemental Oxygen) Answer: 94 Order Specific Question: Exercise Rate - LPM (Supplemental Oxygen) Answer: 3 Order Specific Question: Nocturnal testing performed? Answer: No Order Specific Question: Oxygen Conserving Device (OCD) needed? Answer: Yes Order Specific Question: OC Device setting Answer: 4 Outpatient Established Visits Time MDM 05921 10-19 Straightforward 46340 20-29 Low 73250 30-39 Moderate X 35045 40-54 High 08708 + 15 mins Russel Younger MD * Heidi Bo, RT - 04/26/2023 11:00 AM EDT Home Oxygen Evaluation for Jeremiah Savage Resting SpO2 on room air: 94 % HR: 75 bpm Walked 500 feet on room air, SpO2: 88 % HR: 95 bpm, stopped and continued to desaturate to 84%, with severe dyspnea noted. Placed on O2 at 3 lpm O2: Resting SpO2 on 3 lpm O2: 97 % HR: 93 bpm Walked 400 feet on 3 lpm O2, SpO2: 94 % HR: 92 bpm Stopped and continued to desaturate to 91%, noted slight dyspnea Pulse Dose Oxygen Evaluation for Jeremiah Savage Placed on 4 pulse dose O2: Resting SpO2 on 4 pulse dose O2: 97 % HR: 94 bpm Walked 300 feet on 4 pulse dose O2, SpO2: 94 % HR: 100 bpm Jeremiah Savage tolerated pulse dose O2. Oxygen DME: [facility] Home system: low flow concentrator Portable system: portable oxygen concentrator - currently utilizing 4 pulse dose Jimmy noted that he is currently utilizing O2 at 4 lpm in his home with activity and sleep and 4 pulse dose on his portable oxygen concentrator documented in this encounter Plan of Treatment Upcoming Encounters Date Type Department Care Team (Late st Contact Info) Description 05/02/2024 11:00 AM EDT Office [place] [address] Cristian Carolina Jr., MD [facility] [place] [address] Scheduled Orders Name Type Priority Associated Diagnoses Orde r Schedule CT Chest Screening Lung Cancer Imaging Routine Ex-smoker Expected: 05/10/2023 (Approximate), Expires: 10/27/2024 documented as of this encounter Visit Diagnoses Diagnosis Stage 3 severe COPD by GOLD classification GARRISON (dyspnea on exertion) Other dyspnea and respiratory abnormality Ex-smoker Personal history of tobacco use, presenting hazards to health documented in this encounter Care Teams Sterile Preparation Technician Relationship Specialty Start Date End Date Susannah Malhotra MD [address] [place] [address] PCP - General Family Medicine 04/22/20 documented as of this encounter
--- OUTSIDE RECORDS SUMMARY | 2024-04-21 15:16 | XMS_ITS | Encounter Summary ---
Author Organization [facility] [place] [address] Care Team Providers Care Process Improvement Engineer Name Role Phone Susannah Malhotra MD Primary Care Provider [phone] Reason for Visit * Consultation (Routine) - Closed Specialty Diagnoses / Procedures Referred By Cari lester Referred To Contact Pulmonology Diagnoses Pneumonia, unspecified organism Susannah Malhotra MD [address] [place] [address] [facility] [address] [place] [id number] Referral ID Status Reason Start Date Expiration Date V isits Requested Visits Authorized [id number] Closed Consult, Test & Treat Connection [facility] PCP Updated and/or Approved 12/09/2020 12/09/2021 6 6 Encounter Details Date Type Department Care Team (Late st Contact Info) Description 02/07/2021 10:05 AM EDT [place] [address] Russel Younger MD [facility] [place] [address] Community acquired pneumonia, unspecified laterality; Cough with hemoptysis; Stage 2 moderate COPD by GOLD classification; GARRISON (dyspnea on exertion); Exercise hypoxemia; Pulmonary embolism without acute cor pulmonale, unspecified chronicity, unspecified pulmonary embolism type Social History Tobacco Use Types Packs/Day Years Used Date Smoking Tobacco: Former Cigarettes 1.5 40 0 11/17/1977 - 11/17/2017 Smokeless Tobacco: Never Sex and Gender Information Value Date Recorded Sex Assigned at Not on file Gender Identity Not on file Sexual Orientation Not on file documented as of this encounter Last Filed Vital Signs Vital Sign Reading Time Taken Comments Blood Pressure 127/81 02/07/2021 9:36 AM EDT Pulse 77 02/07/2021 9:36 AM EDT Temperature 36.2 ??C (97.2 ??F) 02/07/2021 9:36 AM ED T Respiratory Rate 16 02/07/2021 9:36 AM EDT Oxygen Saturation 93% 02/07/2021 9:36 AM EDT Inhaled Oxygen Concentration - - Weight 99.3 kg (219 lb) 02/07/2021 9:36 AM EDT Height 180.3 cm (5' 11) 02/07/2021 9:36 AM EDT Body Mass Index 30.54 02/07/2021 9:36 AM EDT documented in this encounter Progress Notes * Russel Younger MD - 02/07/2021 10:05 AM EDT Images from the original note were not included. [facility] Section of Pulmonary Medicine COPD Clinic Consultation Date of Encounter: 02/07/2021 PCP: Susannah Malhotra MD [address] [place] [id number] Background: ?? GOLD stage II COPD, FEV1 51% predicted in 2018, completed pulmonary rehab December 2019 [place], [place] ?? Ex-smoker, quit 2017 ?? Prior left pneumothorax treated with chest tube only, no recurrence ?? Remote history of pulmonary embolism, on apixaban ?? New 1.7 cm right upper lobe nodule - now resolved on follow up imaging 2020 HPI: I saw Jimmy back in the pulmonary clinic today. I last saw him in 2019 at which point we identified anew 1.7 right upper lobe nodule. This had a spiculated appearance and I was concerned about lung cancer but fortunately this nodule resolved after treatment with antibiotics and steroids. No biopsy was performed. He did well for a while but in early 2020 struggled with recurrent pneumonia requiringhospitalization. I do not have the CT images yet but a written report suggests he also had bilateral pulmonary emboli. Think he was in hospital for several days and available records suggest he completed a course of Augmentin as an outpatient. He describes a period of a couple of months where he did really well but in the last week or so he is experienced increased cough and dyspnea. He is bringing up sputum that is yellow-green in color but also streaked with blood. No fevers or chest pain. When he was sent home from the hospital he was actually sent home from oxygen but apparently this was not initially covered by insurance and so he sent the equipment back. While his resting oxygen saturation is in the 90s with us today he quickly desaturates with ambulation. With regard to recurrent pneumonia he is not known to have any immunodeficiency and describes no exposures to Unusual bacteria or mycobacteria. No choking or coughing when he eats, no recent dental infections,no significant alcohol intake and uses CPAP nightly but with cleaning supplies Review of Systems: Weight stable, no headache, ROS otherwise negative Past Medical History: Past Medical History: Diagnosis Date ??? COPD (chronic obstructive pulmonary disease) ??? Emphysema of lung ??? Fractures right ankle fractureas child ??? GERD (gastroesophageal reflux disease) ??? Hypertension ??? Lung disease ??? Sleep apnea Patient Active Problem List Diagnosis Code ??? Pulmonary embolism I26.99 ??? Panlobular emphysema J43.1 ??? Right upper lobe pulmonary nodule R91.1 Past Surgical History: Past Surgical History: Procedure Laterality Date ??? JOINT REPLACEMENT Right 1989 Medications: Current Outpatient Medications Medication Sig Dispense Refill ??? Flovent HFA 220 mcg/actuation HFA Aerosol Inhaler ??? apixaban (ELIQUIS) 5 mg Tablet Take 2 tablets by mouth 2 times daily for 6 days, THEN 1 tablet 2 times daily. 90 tablet 3 ??? umeclidinium-vilanterol (ANORO ELLIPTA) 62.5-25 mcg/actuation Disk with Device Inhale 1 Inhalation into the lungs daily. 60 each 5 ??? PROAIR HFA 90 mcg/actuation HFA Aerosol Inhaler INHALE TWO PUFFS BY MOUTH EVERY 6 HOURS NEEDED 98 ??? lisinopril (PRINIVIL;ZESTRIL) 5 mg Tablet TAKE ONE TABLET BY MOUTH EVERY DAY 3 No current facility-administered medications for this visit. Allergies: Patient has no known allergies. Social History: Social History Socioeconomic History ??? Marital status: Single Spouse name: Not on file ??? Number of children: Not on file ??? Years of education: Not on file ??? Highest education level: Not on file Occupational History ??? Not on file Tobacco Use ??? Smoking status: Former Smoker Packs/day: 1.50 Years: 40.00 Pack years: 60.00 Quit date: 11/17/2017 Years since quittin.2 ??? Smokeless tobacco: Never Used Substance and Sexual Activity ??? Alcohol use: Not on file ??? Drug use: Not on file ??? Sexual activity: Not on file Other Topics Concern ??? 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 Difficulty of Paying Living Expenses: Food Insecurity: ??? Worried About Running Out of Food in the Last Year: ??? Ran Out of Food in the Last Year: Transportation Needs: ??? Lack of Transportation (Medical): ??? Lack of Transportation (Non-Medical): Physical Activity: ??? Days of Exercise per Week: ??? Minutes of Exercise per Session: Stress: ??? Feeling of Stress : Social Connections: ??? Frequency of Communication with Friends and Family: ??? Frequency of Social Gatherings with Friends and Family: ??? Attends Catholic Services: ??? Active Member of Clubs or Organizations: ??? Attends Club or Organization Meetings: ??? Marital Status: Intimate Partner Violence: ??? Fear of Current or Ex-Partner: ??? Emotionally Abused: ??? Physically Abused: ??? Sexually Abused: Family History: Family History Problem Relation Age of Onset ??? Chronic Obstructive Pulmonary Disease Mother ??? Aneurysm Mother ??? Heart Disease Father ??? Hypertension Father ??? Cancer Paternal Uncle ??? Leukemia Paternal Uncle Immunizations: No recent flu or pneumonia immunizations Examination: BP 127/81 Pulse 77 Temp 36.2 ??C (97.2 ??F) Resp 16 Ht 180.3 cm (5' 11) Wt 99.3 kg (219 lb) SpO2 93% BMI 30.54 kg/m?? General: Comfortable at rest HEENT: No cervical lymphadenopathy, no oral thrush Resp: Hyperinflated, chest expansion equal Resonant to percussion with vesicular breath sounds throughout No crackles or wheeze Skin: No rash Extremities: No clubbing, no cyanosis, no edema, calves soft and non tender Neurologic: No obvious cranial nerve palsy or limb weakness, normal gait Psych: Normal mood and affect Labs: Normal CBC 2018 A1AT gentoype: MM Imaging: Available CXR and CT Chest images were viewed personally and reports were reviewed. I agree with the radiology reads. ?? CT Lung Cancer Screening 2018 - no nodules ?? CT Chest April 2020 - new 1.7cm RUL nodule, no obvious adenopathy or metastatic disease CT chest November 2020 reported to share right lower lobe segmental pulmonary embolism, small rightpleural effusion and patchy right lower lobe infiltrates compatible with pneumonia Pulmonary Function Tests 2019: PFT Results Office Visit from 12/12/2018 in Pulmonology at [facility] PFT Results FEV1 (L) 1.55 liters FEV1 (%) 45 FVC (L) 3.6 liters FVC (%) 79 FEF 25-75 (L) 0.58 FEF 25-75 (%) 21 FEV1/FVC (absolute) 0.43 FEV1/FVC (%) 43.1 % Additional PFT Data (if needed) Post bronchodilator spirometry showed an FVC of 4.07 L (89% predicted), FEV1 1.76 L (51% predicted). This is a 13% improvement and is deemed a significant bronchodilator response by the [place] [employer]. Diffusing capacity is 46% predicted Significant ambulatory hypoxemia today required supplemental oxygen at 4 L/min to keep sats greaterthan 88% during a 500 feet walk today. Assessment: 1. History of recurrent pneumonia, currently has productive cough with streaky hemoptysis 2. 1.7 cm right upper lobe nodule - resolved 2020 3. COPD: GOLD stage 2 category B. This is moderate disease. 4. Ambulatory hypoxemia 5. Former smoker, quit 2017 Jeremiah Savage has had a tough winter with recurrent episodes of pneumonia. I need to get hold of his recent chest imaging but I am a little worried his current symptoms reflect a another episode of pneumonia and opted to treat accordingly. Send sputum for culture and decide to treat with Augmentinand prednisone. Once I have a CT scan images we can talk again in about 10 days to decide on next steps. I do wonder if he will need some immunology testing and perhaps a swallow study. Despite hemoptysis I think it makes sense to stay on Eliquis for now. Would only stop if he has massive hemoptysis. He has significant ambulatory hypoxemia, will order a portable oxygen concentrator for him which I think will provide significant symptomatic benefit Orders Placed This Encounter Procedures ??? AFB culture Sputum Expectorated Order Specific Question: Specimen Type Answer: Sputum Expectorated ??? Lower Respiratory Culture Sputum Expectorated Order Specific Question: Specimen Type Answer: Sputum Expectorated ??? Home Oxygen Please provide lightest portable oxygen concentrator to go up to 4 pulse dose. Order Specific Question: Vendor Name/Contact information: Answer: [facility] Order Specific Question: Rate (LPM) Answer: 3 Order Specific Question: Route Answer: Nasal Order Specific Question: Hours per day of useage Answer: 16 Order Specific Question: # months service is needed (99= lifetime) Answer: 99 Order Specific Question: Portable needed: Answer: Yes Order Specific Question: SPO2 performed on Room Air? Answer: Yes Order Specific Question: Resting Date (Room Air) Answer: 02/07/2021 Order Specific Question: Resting SPO2% (Room Air) Answer: 90 Order Specific Question: Exercise Date (Room Air) Answer: 02/07/2021 Order Specific Question: Exercise SPO2% (Room Air) Answer: 87 Order Specific Question: SPO2 performed with Supplemental Oxygen? Answer: Yes Order Specific Question: Resting Date (Supplemental Oxygen) Answer: 02/07/2021 Order Specific Question: Resting SPO2% (Supplemental Oxygen) Answer: 94 Order Specific Question: Resting Rate - LPM (Supplemental Oxygen) Answer: 2 Order Specific Question: Exercise Date (Supplemental Oxygen) Answer: 02/07/2021 Order Specific Question: Exercise SPO2% (Supplemental Oxygen) Answer: 90 Order Specific Question: Exercise Rate - LPM (Supplemental Oxygen) Answer: 3 Order Specific Question: Nocturnal testing performed? Answer: No Order Specific Question: Oxygen Conserving Device (OCD) needed? Answer: Yes Order Specific Question: OC Device setting Answer: 4 Medication ordered or changed during this encounter, will not show discontinued medications Medications ??? predniSONE (Deltasone) 20 mg Tablet Sig: Take 2 tablets by mouth daily for 5 days. Take in the morning with food Dispense: 10 tablet Refill: 1 ??? amoxicillin-clavulanate (Augmentin) 875-125 mg Tablet Sig: Take 1 tablet by mouth 2 times daily for 7 days. Dispense: 14 tablet Refill: 0 COPD Plan: 1. Medications Daily: Anoro 1 puff daily Flovent twice daily As needed: Albuterol (Pro Air) 2 puffs before activity 2. Exacerbation prevention Avoid sick contacts, wash hands, wear mask as needed 3. Sick plan Prednisone 40mg for 5 days Azithromycin for 5 days Call our office for medications as needed 4. Sleep evaluation 5. Advanced directives 6. Smoking cessation Quit 2018 7. Pulmonary rehabilitation Referred to [facility] 8. Oxygen Evaluation today 9. Immunizations Up to date 10. Lung cancer screening 11. LVRS / Transplant 12. Palliative care 13. A1AT Testing MM genotype (normal) 14. Other Follow up: 10 days by phone Russel Younger MD * Heidi Bo RT - 02/07/2021 10:05 AM EDT Home Oxygen Evaluation for Jeremiah Savage Resting SpO2 on room air: 90 % HR: 87 bpm Walked 80 feet on room air, SpO2: 87 % HR: 100 bpm Placed on O2 at 2 lpm: Resting SpO2 on 2 lpm O2: 94 % HR: 84 bpm Walked 400 feet on 2 lpm O2, SpO2: 88 % HR: 105 bpm Increased to 3 lpm O2: Resting SpO2 on 3 lpm O2: 97 % HR: 83 bpm Walked 400 feet on 3 lpm O2, SpO2: 90 % HR: 98 bpm Changed to Pulse Dose O2: Resting SpO2 on 3 pulse dose O2: 95% HR= 78 Walked 400 feet on 3 pulse dose, SpO2= 88% HR= 107 Increased 4 pulse dose O2: Resting SpO2 on 4 pulse dose O2: 95 % HR: 86 bpm Walked 400 feet on 4 Pulse dose O2, SpO2: 92 down to 90% HR: 105 bpm Jeremiah Savage tolerated pulse dose oxygen and is interested in the lightest portable oxygen concentrator to utilize outside the house. Reviewed potential O2 DME vendors: Plan: refer to [facility] for home and portable oxygen. documented in this encounter Plan of Treatment Upcoming Encounters Date Type Department Care Team (Late st Contact Info) Description 05/02/2024 11:00 AM EDT [place] [address] Cristian Carolina Jr., MD [facility] [place] [address] documented as of this encounter Procedures Procedure Name Priority Date/Time Associated Diagnosis Comments HC MYCOBACTERIA CULTURE Routine 02/07/2021 11:10 AM EDT Cough with hemoptysis HC GRAM STAIN FOR BACTERIA Routine 02/07/2021 11:10 AM EDT Cough with hemoptysis documented in this encounter Results * (ABNORMAL) Lower Respiratory Culture Sputum Expectorated (02/07/2021 11:10 AM EDT) Lower Respiratory Culture Many mixed bacterial morphotypes suggestive of normal upper respiratory do(A) [facility] Gram Stain Many Neutrophils seen Moderate squamous epithelial cells seen Moderate mixed bacterial morphotypes suggestive of normal upper respiratory do Moderate Gram Positive lancet-shaped Diplococci seen (A) [facility] Organism Gram Positive lancet-shaped Diplococci(A) [facility] Sputum specimen (specimen) 02/07/2021 11:10 AM EDT 02/07/2021 12:24 PM EDT Narrative Resulting Agency Comment Spec In Lab Russel Younger MD MICROBIOLOGY - GENER AL ORDERABLES Performing Organization Address City/[facility]/[place] [address] * AFB culture Sputum Expectorated (02/07/2021 11:10 AM EDT) Acid Fast Bacilli Culture No Acid Fast Bacilli isolated If active tuberculosis is suspected, the patient should be on AIRBORNE PRECAUTIONS. Call Infection Prevention for assistance if needed. [facility] Acid Fast Stain No Acid Fast Bacilli seen [facility] Sputum Expectorated 02/08/20 11:10 AM EDT 02/07/2021 12:24 PM EDT Narrative Resulting Agency Comment Spec In Lab Russel Younger MD MICROBIOLOGY - GENER AL ORDERABLES [facility] [place] [address] documented in this encounter Visit Diagnoses Diagnosis Community acquired pneumonia, unspecified laterality Cough with hemoptysis Other hemoptysis Stage 2 moderate COPD by GOLD classification GARRISON (dyspnea on exertion) Other dyspnea and respiratory abnormality Exercise hypoxemia Hypoxemia Pulmonary embolism without acute cor pulmonale, unspecified chronicity, unspecified pulmonary embolism type documented in this encounter Care Teams Process Improvement Engineer Relationship Specialty Start Date End Date Susannah Malhotra MD [address] [place] [id number] PCP - General Family Medicine 04/22/20 documented as of this encounter
--- OUTSIDE RECORDS SUMMARY | 2024-04-21 15:16 | XMS_ITS | Encounter Summary ---
[place] [address] Care Team Providers Care Telecommunications Cable Jointer Name Role Phone Susannah Malhotra MD Primary Care Provider [phone] Encounter Details Date Type Department Care Team (Late st Contact Info) Description 05/04/2023 [place] [address] Hina Silver RN Social History Tobacco Use Types Packs/Day [...] encounter Miscellaneous Notes * Telephone Encounter - Hina Silver RN - 05/04/2023 9:39 AM EDT [facility] is requesting office note be sent in support of home oxygen orders. Dr. Arteaga's note from 04/26/23 faxed to [phone]. documented in this encounter Plan of Treatment Upcoming Encounters Date Type Department Care Team (Late st Contact Info) Description 05/02/2024 11:00 AM EDT Office [place] [address] Cristian Carolina Jr., MD [facility] [place] [address] documented as of this encounter Visit Diagnoses Not on filedocumented in this encounter Care Teams Telecommunications Cable Jointer Relationship Specialty Start Date End Date Susannah Malhotra MD [address] [place] [address] PCP - General Family Medicine 04/22/20 documented as of this encounter
--- OUTSIDE RECORDS SUMMARY | 2024-04-21 15:16 | XMS_ITS | Encounter Summary ---
Author Organization [facility] [place] [place] [address] Care Team Providers Care Retort Firer Name Role Phone Susannah Malhotra MD Primary Care Provider [phone] Encounter Details Date Type Department Care Team (Late st Contact Info) Description 03/22/2021 [place] [address] Nini Joseph Social History Tobacco Use Types Packs/Day Years [...] 11:00 AM EDT Office [place] [address] Cristian Carolina Jr., MD [facility] [place] [address] documented as of this encounter Visit Diagnoses Not on filedocumented in this encounter Care Teams Retort Firer Relationship Specialty Start Date End Date Susannah Malhotra MD [address] [place] [address] PCP - General Family Medicine 04/22/20 documented as of this encounter
--- OUTSIDE RECORDS SUMMARY | 2024-04-21 15:16 | XMS_ITS | Encounter Summary ---
Author Organization [facility] [place] [address] Care Team Providers Care Filter Changing Technician Name Role Phone Susannah Malhotra MD Primary Care Provider [phone] Encounter Details Date Type Department Care Team (Late st Contact Info) Description 09/01/2022 [place] [id number] Russel Younger MD [facility] [place] [address] Stage 2 moderate COPD by GOLD classification Social History Tobacco Use Types Packs/Day Years [...] encounter Miscellaneous Notes * Telephone Encounter - Farzad Panda RN - 09/01/2022 10:19 AM EST Copied from CRM #[id number]. Topic: Specialty Dept CRMs - Generic Call >> Sep 01, 2022 9:56 AM Beena Llanos wrote: Specialist: Dr Younger Relationship (if other than patient-full name): none Reason for Call: Jimmy called to say that he is coughing up blood this morning and wants an antibiotic before it turns into pneumonia. Please call to discuss documented in this encounter Plan of Treatment Upcoming Encounters Date Type Department Care Team (Late st Contact Info) Description 05/02/2024 11:00 AM EDT Office [place] [address] Cristian Carolina Jr., MD [facility] [place] [address] documented as of this encounter Visit Diagnoses Diagnosis Stage 2 moderate COPD by GOLD classification documented in this encounter Care Teams Filter Changing Technician Relationship Specialty Start Date End Date Susannah Malhotra MD [address] [place] [address] PCP - General Family Medicine 04/22/20 documented as of this encounter
--- OUTSIDE RECORDS SUMMARY | 2024-04-21 15:16 | XMS_ITS | Encounter Summary ---
[place] [address] Care Team Providers Care Concrete Wall Grinder Operator Name Role Phone Susannah Malhotra MD Primary Care Provider [phone] Reason for Visit * Reason Onset Date Comments Shortness of Breath 05/24/2021 Encounter Details Date Type Department Care Team (Late st Contact Info) Description 05/24/2021 Telephone [place] [phone] Nery Schulte RN Shortness of Breath Social History Tobacco Use Types Packs/Day Years Used Date Smoking Tobacco: Former Cigarettes 1.5 40 0 11/17/1977 - 11/17/2017 Smokeless Tobacco: Never Sex and Gender Information Value Date Recorded Sex Assigned at Not on file Gender Identity Not on file Sexual Orientation Not on file documented as of this encounter Miscellaneous Notes * Telephone Encounter - Nery Schulte RN - 05/24/2021 4:53 PM EDT Jeremiah left a voicemail, he coughed up blood at [address] Younger yesterday. He plans to call his PCP. Returned Jeremiah's call. He awoke this morning, he felt cold,forehead was hot, and he was coughing up blood He eyes were achy and he slept all day. He is taking anoro ellipta and another inhaler, not his rescue, at night. He will have pamela stevensx his drug list to . Attempted calling Cristóbal for a medication list, could not get through to the pharmacy at this time. He now feels better, he has not coughed up any blood. He called his pharmacy to start Augmentin today prescribed by Dr. Younger.He also requested prednisone. I had it last time I had pneumonia He has not had a covid test. He has been walking the stairs and [facility] He will get a covid test if he does not feel better after taking augmentin and prednisone. Jeremiah understands to seek medical attention if symptoms worsen, do not improve or as needed. documented in this encounter Plan of Treatment Upcoming Encounters Date Type Department Care Team (Late st Contact Info) Description 05/02/2024 11:00 AM EDT Office [place] [address] Cristian Carolina Jr., MD [facility] [place] [address] documented as of this encounter Visit Diagnoses Diagnosis Acute exacerbation of chronic obstructive pulmonary disease Obstructive chronic bronchitis with exacerbation documented in this encounter Care Teams Concrete Wall Grinder Operator Relationship Specialty Start Date End Date Susannah Malhotra MD [address] [place] [address] PCP - General Family Medicine 04/22/20 documented as of this encounter
--- OUTSIDE RECORDS SUMMARY | 2024-04-21 15:16 | XMS_ITS | Encounter Summary ---
Author Organization [facility] [place] [address] Care Team Providers Care Transit Operations Supervisor Name Role Phone Susannah Malhotra MD Primary Care Provider [phone] Encounter Details Date Type Department Care Team (Late st Contact Info) Description 04/20/2022 Telephone [place] [phone] Susannah Reeves Social History Tobacco Use Types Packs/Day Years [...] encounter Miscellaneous Notes * Telephone Encounter - Susannah Reeves - 04/20/2022 12:14 PM EDT RECALL: HENKIN Pulmonary Embolism 1 yr f/up LMX1 Can be a Telehealth appt if patient wants. documented in this encounter Plan of Treatment Upcoming Encounters Date Type Department Care Team (Late st Contact Info) Description 05/02/2024 11:00 AM EDT Office [place] [phone] Cristian Carolina Jr., MD [facility] [place] [address] documented as of this encounter Visit Diagnoses Not on filedocumented in this encounter Care Teams Transit Operations Supervisor Relationship Specialty Start Date End Date Susannah Malhotra MD [address] [place] [address] PCP - General Family Medicine 04/22/20 documented as of this encounter
--- OUTSIDE RECORDS SUMMARY | 2024-04-21 15:16 | XMS_ITS | Encounter Summary ---
Author Organization [facility] Address [facility] [place] [address] Care Team Providers Care Associate Professor Of Theatre Name Role Phone Susannah Malhotra MD Primary Care Provider Encounter Details Date Type Department Care Team (Latest Contact Info) Description 09/09/2021 10:30 AM EST TH Visit (TeleHealth) [place] [address] Russel Younger MD [facility] [place] [address] Cough with hemoptysis; Stage 2 moderate COPD by GOLD classification [...] Progress Notes * Russel Younger MD - 09/09/2021 10:30 AM EST Pulmonary Telehealth Follow-Up Visit This visit replaces an in person visit due to the COVID-19 pandemic. Patient verbally consents to this visit and understands that this visit may be billed, similar to a clinic office visit. Date of Encounter: 09/13/21 PCP: Susannah Malhotra MD [address] [place] [address] Pulmonary Background: ?? GOLD stage II COPD, FEV1 51% predicted in 2019, completed pulmonary rehab December 2019 [place], [place] ?? Ex-smoker, quit 2018 ?? Prior left pneumothorax treated with chest tube only, no recurrence ?? Remote history of pulmonary embolism, on apixaban ?? 1.7 cm right upper lobe nodule - improved on follow up imaging January 2021 ?? Recurrent pneumonia Subjective: I spoke with Jimmy today. Very reasonably he had reservations about traveling given increasing COVID-19 numbers in our area. Please to say overall he is done very well in the last few months with his breathing. Most of the time his cough, sputum and dyspnea are well controlled with the use of Anoro daily and albuterol as needed. He is exercising his apartment complex climbing multiple flights of stairs daily. Using his portable oxygen concentrator occasionally with benefit. He is using prednisoneantibiotics a couple of times per year on average for symptoms of an exacerbation Recently he was dog sitting for a family member and found the adequacy of at home to be suboptimal,very dry and slightly smoky. He did cough a trace of blood for the a couple of days in a row when staying there but had no other pulmonary symptoms and the small amount of hemoptysis is now resolved completely. Last hemoptysis several weeks ago Current Outpatient Medications Medication Sig Dispense Refill ??? predniSONE (Deltasone) 10 mg Tablet TAKE [...] lungs every 6 hours as needed. ??? apixaban (ELIQUIS) 5 mg Tablet Take [...] No current facility-administered medications for this visit. No physical examination as this was a telephone visit Data Review: No new data - prior data as below: ?? Jimmy's latest CT scan of the chest performed January 2021 -significant emphysema and some right lower lobe atelectasis/scarring but no suspicious nodules I can see. ?? Sputum culture from early February 2021 is negative for AFB+ organisms so far but did grow mixed normal upper respiratory do without a predominant species Decision Making/Plan: 1. Cough with hemoptysis 2. Stage 2 moderate COPD by GOLD classification Jimmy is doing very well from the COPD perspective and use of antibiotics and prednisone as needed has certainly decreased his hospitalization frequency. He has had a number of chest imaging studies over the last year and none have shown changes suspicious for malignancy. I suspect his most recent episode of hemoptysis is due to vigorous coughing in a patient on anticoagulation but I think it is worth repeating his CT scan to be sure. I will contact him with the CT results when available. He has antibiotics and prednisone on hand in the event of an exacerbation. He is up-to-date with COVID-19 vaccination. Orders Placed This Encounter Procedures ??? CT Chest wo Contrast (Generic) Standing Status: Future Standing Expiration Date: 03/18/2022 Order Specific Question: Where will study be performed? Answer: External [125] Order Specific Question: Clinical information / aguirre questions for radiologist: Answer: To be done at [facility]. Intermittent episode low volume hemoptysis in patient in patient with severe COPD and migratory pulmonary opacities (possible aspiration) assess for interval change - last CT 01/2021 Outpatient Established Visits Time MDM 16360 10-19 Straightforward 93568 20-29 Low 95954 30-39 Moderate X 87459 40-54 High 19270 + 15 mins Russel Younger MD documented in this encounter Plan of Treatment Upcoming Encounters Date Type Department Care Team (Late st Contact Info) Description 05/02/2024 11:00 AM EDT [place] [address] Cristian Carolina Jr., MD [facility] [address] [place] [address] documented as of this encounter Visit Diagnoses Diagnosis Cough with hemoptysis Other hemoptysis Stage 2 moderate COPD by GOLD classification documented in this encounter Care Teams Associate Professor Of Theatre Relationship Specialty Start Date End Date Susannah Malhotra MD [address] [place] [address] PCP - General Family Medicine 04/22/20 documented as of this encounter
--- OUTSIDE RECORDS SUMMARY | 2024-04-21 15:16 | XMS_ITS | Encounter Summary ---
Author Organization [facility] [place] [address] Care Team Providers Care Service Vehicle Operator Name Role Phone Susannah Malhotra MD Primary Care Provider [phone] Encounter Details Date Type Department Care Team (Late st Contact Info) Description 01/10/2021 Ancillary Procedure [place] [address] Russel Younger MD [facility] [place] [address] Social History Tobacco Use Types Packs/Day Years [...] 11:00 AM EDT Office [place] [address] Cristian Carolina Jr., MD [facility] [place] [address] documented as of this encounter Procedures Procedure Name Priority Date/Time Associated Diagnosis Comments FILM LIBRARY STORAGE ONLY CT CHEST Routine 01/10/2021 12:00 AM EDT documented in this encounter Results * Film Library- Storage Only CT Chest (01/10/2021 12:00 AM EDT) Narrative AMILCAR - 02/07/2021 2:17 PM EDT This exam is auto-finalizing. It's purpose is for storage only. Russel Younger MD IMG FILM LIBRARY ORD ERABLES Performing Organization Address City/State/[facility] Co de Phone Number [place], [place] documented in this encounter Visit Diagnoses Not on filedocumented in this encounter Care Teams Service Vehicle Operator Relationship Specialty Start Date End Date Susannah Malhotra MD [address] [place] [address] PCP - General Family Medicine 04/22/20 documented as of this encounter
--- OUTSIDE RECORDS SUMMARY | 2024-04-21 15:16 | XMS_ITS | Encounter Summary ---
Author Organization [facility] Address [facility] [place] [address] Care Team Providers Care Brick And Tile Making Machine Operator Name Role Phone Susannah Malhotra MD Primary Care Provider [phone] Reason for Referral * Consultation (Routine) - Closed Specialty Diagnoses / Procedures Referred By Contac t Referred To Contact Orthopaedics Diagnoses Palmar fasciitis Dupuytren's contracture 2ND OPINION Rafiq Bourne MD [address] [place] [address] Navi Quintero MD [facility] [place] [address] Referral ID Status Reason Start Date Expiration Date V isits Requested Visits Authorized [id number] Closed Consult, Test & Treat PCP Updated and/or Approved 01/18/2023 01/18/2024 6 6 Encounter Details Date Type Department Care Team (Latest Contact Info) Description 01/18/2023 Transcribe Orders eDH Incoming Referrals [phone] Rafiq Bourne MD [address] [place], [place] [id number] Palmar fasciitis; Dupuytren's contracture Social History Tobacco Use Types Packs/Day [...] 11:00 AM EDT Office [place] [address] Cristian Carolina Jr., MD [facility] [place] [address] Scheduled Referrals Name Type Priority Associated Diagnoses Orde r Schedule Referral to Orthopaedics Outpatient Referral Routine Palmar fasciitis Dupuytren's contracture Ordered: 01/18/2023 documented as of this encounter Visit Diagnoses Diagnosis Palmar fasciitis Contracture of palmar fascia Dupuytren's contracture Contracture of palmar fascia documented in this encounter Care Teams Brick And Tile Making Machine Operator Relationship Specialty Start Date End Date Susannah Malhotra MD [address] [place] [id number] PCP - General Family Medicine 04/22/20 documented as of this encounter
--- OUTSIDE RECORDS SUMMARY | 2024-04-21 15:16 | XMS_ITS | Encounter Summary ---
Author Organization [facility] [place] [address] Care Team Providers Care Shovel Engineer Name Role Phone Susannah Malhotra MD Primary Care Provider Encounter Details Date Type Department Care Team (Late st Contact Info) Description 09/13/2021 Ancillary Procedure [place] [address] Susannah Malhotra MD [address] [place] [address] Social History Tobacco Use Types Packs/Day Years [...] 11:00 AM EDT Office [place] [phone] Cristian Carolina Jr., MD [facility] [place] [address] documented as of this encounter Procedures Procedure Name Priority Date/Time Associated Diagnosis Comments FILM LIBRARY STORAGE ONLY CT CHEST Routine 09/13/2021 12:00 AM EST documented in this encounter Results * Film Library- Storage Only CT Chest (09/13/2021 12:00 AM EST) Narrative AMILCAR - 09/14/2021 8:35 AM EST This exam is auto-finalizing. It's purpose is for storage only. Susannah Malhotra MD IMG FILM LIBRARY ORD ERABLES Performing Organization Address City/State/[facility] Co de Phone Number [place], [place] documented in this encounter Visit Diagnoses Not on filedocumented in this encounter Care Teams Shovel Engineer Relationship Specialty Start Date End Date Susannah Malhotra MD [address] [place] [address] PCP - General Family Medicine 04/22/20 documented as of this encounter
--- OUTSIDE RECORDS SUMMARY | 2024-04-21 15:16 | XMS_ITS | Encounter Summary ---
Author Organization [facility] [place] [address] Care Team Providers Care City Carrier Name Role Phone Susannah Malhotra MD Primary Care Provider [phone] Encounter Details Date Type Department Care Team (Late st Contact Info) Description 05/07/2023 Telephone [place] [address] Carmen Gibbons Social History Tobacco Use Types Packs/Day Years [...] 11:00 AM EDT Office [place] [address] Cristian Carolina Jr., MD [facility] [place] [address] documented as of this encounter Visit Diagnoses Not on filedocumented in this encounter Care Teams City Carrier Relationship Specialty Start Date End Date Susannah Malhotra MD [address] [place] [address] PCP - General Family Medicine 04/22/20 documented as of this encounter
--- OUTSIDE RECORDS SUMMARY | 2024-04-21 15:16 | XMS_ITS | Encounter Summary ---
[place] [address] Care Team Providers Care Fire And Explosion Investigator Name Role Phone Susannah Malhotra MD Primary Care Provider [phone] Encounter Details Date Type Department Care Team (Late st Contact Info) Description 04/15/2022 Telephone [place] [address] Milagros Jaquez Social History Tobacco Use Types Packs/Day Years [...] encounter Miscellaneous Notes * Telephone Encounter - Milagros Espino - 04/15/2022 2:31 PM EDT RECALL: HENKIN Pulmonary Embolism 1yr f/up Sent lost to follow up letter. Recall closed documented in this encounter Plan of Treatment Upcoming Encounters Date Type Department Care Team (Late st Contact Info) Description 05/02/2024 11:00 AM EDT Office [place] [address] Cristian Carolina Jr., MD [facility] [place] [address] documented as of this encounter Visit Diagnoses Not on filedocumented in this encounter Care Teams Fire And Explosion Investigator Relationship Specialty Start Date End Date Susannah Malhotra MD [address] [place] [address] PCP - General Family Medicine 04/22/20 documented as of this encounter
--- OUTSIDE RECORDS SUMMARY | 2024-04-21 15:16 | XMS_ITS | Encounter Summary ---
Author Organization [facility] [place] [address] Care Team Providers Care Dentures Lab Technician Name Role Phone Susannah Malhotra MD Primary Care Provider [phone] Encounter Details Date Type Department Care Team (Late st Contact Info) Description 05/23/2021 11:00 AM EDT Office [place] [address] Russel Younger MD [facility] [place] [address] Stage 2 moderate COPD by GOLD classification; [...] Sign Reading Time Taken Comments Blood Pressure 128/82 05/23/2021 10:44 AM EDT Pulse 68 05/23/2021 10:44 AM EDT Temperature 36.1 ??C (97 ??F) 05/23/2021 10:44 AM EDT Respiratory Rate 16 05/23/2021 10:44 AM EDT Oxygen Saturation 97% 05/23/2021 10:44 AM EDT Inhaled Oxygen Concentration - - Weight 101.2 kg (223 lb) 05/23/2021 10:44 AM EDT Height 180.3 cm (5' 10.98) 05/23/2021 10:44 AM EDT Body Mass Index 31.12 05/23/2021 10:44 AM EDT documented in this encounter Progress Notes * Russel Younger MD - 05/23/2021 11:00 AM EDT Pulmonary Follow-Up Visit Date of Encounter: 05/23/21 PCP: Susannah Malhotra MD [address] [place] [address] Pulmonary Background: ?? GOLD stage II COPD, FEV1 51% predicted in 2018, completed pulmonary rehab December 2019 [place], [place] ?? Ex-smoker, quit 2017 ?? Prior left pneumothorax treated with chest tube only, no recurrence ?? Remote history of pulmonary embolism, on apixaban ?? 1.7 cm right upper lobe nodule - improved on follow up imaging January 2021 ?? Recurrent pneumonia Subjective: I saw Jimmy back in the pulmonary clinic today. I am pleased to say he is doing really well from the pulmonary perspective with no exacerbations requiring prednisone or antibiotics in the last 4 monthsand a steady improvement in his pulmonary symptoms. He is participating in the pulmonary rehab program at [facility] in [facility] and really enjoying it. He steadily increased his exercise time as well as the speed on the treadmill and the incline. Occasionally he will desaturate if he goes particularly fast but overall has not required supplementaloxygen. He is also been exercising at home and climbing multiple flights of stairs in his [place]. No significant cough or sputum production. Using his regular inhaled medication without difficulty (Anoro and ProAir). CAT Responses 05/23/2021 Cough 1 Phleg/Mucus in chest 2 Tightness in chest 1 Breathlessness 1 Limited doing activities 1 Confident leaving home 2 Sleep 1 Lots of energy 1 CAT Scores 10 (Medium) Examination: BP 128/82 Pulse 68 Temp 36.1 ??C (97 ??F) (Temporal) Resp 16 Ht 180.3 cm (5' 10.98) Wt 101.2 kg (223 lb) SpO2 97% BMI 31.12 kg/m?? No clubbing, cyanosis or significant peripheral edema Chest clear without crackles or wheeze Data Review: ?? Jimmy's latest CT scan of the chest performed January 2021 -significant emphysema and some right lower lobe atelectasis/scarring but no suspicious nodules I can see. ?? Sputum culture from early February 2021 is negative for AFB+ organisms so far but did grow mixed normal upper respiratory do without a predominant species Decision Making/Plan: ??? Jimmy continues to do really well from a pulmonary perspective, largely due to his own hard work with smoking cessation and now regular participation in pulmonary rehabilitation. I encouraged him to use oxygen for prolonged deterioration in symptoms or sustained hypoxemia when using his home pulse oximeter. ??? I do not think any repeat chest imaging is needed at present but will probably do this in the spring of next year. We agreed I would see him back in about 3 to 4 months time before the worst of the winter weather ??? Jimmy has antibiotics and prednisone on hand in the event of an exacerbation Outpatient Established Visits Time MDM 08793 10-19 Straightforward 25458 20-29 Low X 90686 30-39 Moderate 13078 40-54 High 37325 + 15 mins Russel Younger MD documented in this encounter Plan of Treatment Upcoming Encounters Date Type Department Care Team (Late st Contact Info) Description 05/02/2024 11:00 AM EDT Office [place] [address] Cristian Carolina Jr., MD [facility] [place] [address] documented as of this encounter Visit Diagnoses Diagnosis Stage 2 moderate COPD by GOLD classification GARRISON (dyspnea on exertion) Other dyspnea and respiratory abnormality Ex-smoker Personal history of tobacco use, presenting hazards to health documented in this encounter Care Teams Dentures Lab Technician Relationship Specialty Start Date End Date Susannah Malhotra MD [address] [place] [address] PCP - General Family Medicine 04/22/20 documented as of this encounter
--- OUTSIDE RECORDS SUMMARY | 2024-04-21 15:17 | XMS_ITS | Encounter Summary ---
[place] [address] Care Team Providers Care It Application Development Manager Name Role Phone Alber Garcia MD Primary Care Provider [phone] Reason for Referral * Diagnostic Test (Routine) - Closed Specialty Diagnoses / Procedures Referred By Contac t Referred To Contact Cardiology Diagnoses Acute septic pulmonary embolism with acute cor pulmonale Procedures Echocardiogram Transthoracic([facility]) Lani Caldwell MD [facility] [place] [address] [facility] [place] [address] Referral ID Status Reason Start Date Expiration Date V isits Requested Visits Authorized [id number] Closed Specialty Service Requested 06/25/2019 06/24/2020 1 1 * Consultation (Routine) - Closed Specialty Diagnoses / Procedures Referred By Contac t Referred To Contact Vascular Surgery Diagnoses Acute pulmonary embolism with acute cor pulmonale, unspecified pulmonary embolism type Lani Caldwell MD [facility] [place] [address] [facility] [place] [address] [place] [address] Referral ID Status Reason Start Date Expiration Date V isits Requested Visits Authorized [id number] Closed Consult, Test & Treat 06/25/2019 06/24/2020 2 2 Reason for Visit * Auth/Cert Specialty Diagnoses / Procedures Referred By Cari lester Referred To Contact Diagnoses Pulmonary embolism PE / right heart strain Referral ID Status Reason Start Date Expiration Date Visits Re quested Visits Authorized [id number] 1 1 Encounter Details Date Type Department Care Team (Latest Contact Info) Description 06/23/2019 9:54 PM EDT - 06/25/2019 2:00 PM EDT Hospital [place] [address] Scott Dixon MD [facility] [place] [address] Type 2 myocardial infarction; Acute saddle pulmonary embolism with acute cor pulmonale; Acute pulmonary embolism with acute cor pulmonale, unspecified pulmonary embolism type; Acute septic pulmonary embolism with acute cor pulmonale Discharge Disposition: Home Social History Tobacco Use [...] Sign Reading Time Taken Comments Blood Pressure 126/96 06/25/2019 8:00 AM EDT Pulse 90 06/25/2019 12:00 PM EDT Temperature 36.4 ??C (97.5 ??F) 06/25/2019 8:00 AM ED T Respiratory Rate 24 06/25/2019 12:00 PM EDT Oxygen Saturation 95% 06/25/2019 12:00 PM EDT Inhaled Oxygen Concentration - - Weight 93.5 kg (206 lb 2.1 oz) 06/25/2019 6:00 A M EDT Height 180.3 cm (5' 11) 06/23/2019 9:45 PM EDT Body Mass Index 28.75 06/23/2019 9:45 PM EDT documented in this encounter Discharge Summaries * Lani Caldwell MD - 06/25/2019 10:33 AM EDT Images from the original note were not included. .. Cardiology - Discharge Summary Patient Name: Marilyn Savage Patient Age: 64 y.o. Birthdate: 1955 Admit date: 06/23/2019 Discharge date and time: 06/25/2019 Attending Physician: Scott Dixon MD Follow-up Recommendations for Providers: - Patient was admitted for an intermediate risk pulmonary embolism with high risk features. He was discharged on apixaban. - Patient will be contacted by vascular medicine to schedule a follow-up with Dr. Dixon and Ian in one month. - Patient was noted to have a hemoglobin a1c of 5.7 - please provide counseling on lifestyle modifications Discharge Diagnoses (Hospital Problems) and Secondary Diagnoses (Chronic Problems): Active Hospital Problems Diagnosis ??? Pulmonary embolism Resolved Hospital Problems No resolved problems to display. Procedures/Cardiac Studies: TTE: 1. Patient with known pulmonary embolism. Prior study last night by the on-call fellow. [...] Please see remainder of report for additional findings. History of Presentation: Marilyn Savage is a 64 y.o. male with a history of COPD and HTN presenting in transfer from [facility] for bilateral submassive PE. ?? Patient was in his usual state of health until this past Sunday when he began to feel tired after engaging in heavy physical activity (helping clean out storage unit, lifting furniture, etc.). The feelings of fatigue were not accompanied by chest pain, shortness of breath, respirophasic chest pain, palpitations, lightheadedness, or dizziness. He does, however, get chronically lightheaded whenhe goes into coughing fits as a result of his COPD. ?? This morning, he woke up chest pain free but then developed L-sided chest pain at the mid-clavicular line. The pain was sharp like being stabbed with a pencil and was 8/10 in intensity and worsenedby taking deep breaths. This was accompanied by worsening shortness of breath. These feelings prompted him to present to [facility] ED. ?? Upon presentation his vitals were 36.6C, 110bpm, 115/78, RR 22, SpO2 95% EKG demonstrated S1Q3T3 pattern, sinus tachycardia, and TWIs in V1-V4. His d- dimer was elevated to 7060 and his CTA was positive for bilateral diffuse/multifocal pulmonary emboli with high concern for early right heart strain. His troponins were elevated to 0.44 (ULN 0.06). He was started on a hep maddie gtt, but was initially treated with Methylprednisolone 125mg and Duonebs for presumed COPD exacerbation. Upon discovery of the PE, transfer to [facility] was requested for consideration of EKOS. ?? Of note, he had a pneumothorax 2/2 ruptured pulmonary bleb ~3 months ago that required chest tube placement. He states that he had remained physically active after this and did not suffer from prolonged immobility. 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 Hospital Course: On arrival patient was mildly tachycardic however maintaining adequate blood pressures and saturating well on room air. No clear provoking factor could be identified from the patient's history. Initial troponin was mildly elevated to a peak of 0.02. TTE showed EF 60%, moderately reduced RV function, PASP 48 mmHg, and no significant valvular disease. Duplex lower extremities showed right acute distal femoral non-occlusive DVT and chronic popliteal non-occlusive DVT. Patient was transitioned froma unfractionated heparin to apixaban. He will be contacted by vascular medicine to scheduled a follow-up with Dr. Dixon and repeat TTE in one month. Important Studies and Lab Data: Discharge Labs: Recent Labs 06/25/19 0400 06/24/19 0605 06/23/19 2145 WBC 11.3* 7.9 9.5 HGB 12.3* 13.1* 14.2 PLATELET 255 262 297 Recent Labs 06/25/19 0400 06/24/19 0605 06/23/19 2145 NA 138 138 136 K 4.7 4.6 4.7 CL 103 102 99 CO2 24 23 20* BUN 23* 17 14 CREATININE 1.10 1.03 1.09 GLUCOSE -- -- 183 Recent Labs 06/25/19 0400 06/24/19 0605 06/23/19 2145 CALCIUM 8.6 9.3 9.4 MAGNESIUM 0.94 0.94 0.89 PHOS -- -- 2.7 Recent Labs 06/25/19 0400 06/24/19 1435 06/23/19 2145 TROPONINT <0.01 <0.01 0.02* Recent Labs 06/23/19 2145 AST 20 ALT 20 ALKPHOS 61 BILITOT 0.3 BILIDIR <0.1 Recent Labs 06/23/19 2145 INR 1.2 Lab Results Component Value Date CHLPL 173 06/24/2019 HDL 40 06/24/2019 CHOLHDL 4.3 06/24/2019 TRIG 56 06/24/2019 LDLCHOL 122 06/24/2019 Recent Labs 06/23/19 2305 HA1C 5.7* Studies: Duplex Lower Extremities: ?? RIGHT: Acute (femoral vein very distal thigh) and chronic (popliteal) non-occlusive DVT. Cannot entirely exclude additional small, focal non-occlusive DVT in the upper calf due to suboptimal visualization. ?? LEFT: ??No evidence of lower extremity deep venous thrombosis. Pending Studies and Lab Data: None Discharge Conditions/Prognosis: Stable Discharge to: Home Discharge Medications: Your Medications New Medications Dose Details apixaban 5 mg Tab Commonly known as: ELIQUIS Take 2 tablets by mouth 2 times daily for 6 days, THEN 1 tablet 2 times daily. Start taking on: June 25, 2019 Quantity: 90 tablet Refills: 3 Continued medications, unchanged Dose Details ADVAIR DISKUS 250-50 mcg/dose Dsdv INHALE ONE PUFF BY MOUTH TWICE A DAY Generic drug: fluticasone propion-salmeterol Refills: 3 lisinopril 5 mg Tab Commonly known as: PRINIVIL;ZESTRIL TAKE ONE TABLET BY MOUTH EVERY DAY Refills: 3 * albuterol 2 mg Tab Commonly known as: PROVENTIL Take 2 mg by mouth 3 times daily. 2 mg Refills: 0 * PROAIR HFA 90 mcg/actuation Hfaa INHALE TWO PUFFS BY MOUTH EVERY 6 HOURS NEEDED Generic drug: albuterol Refills: 98 tiotropium-olodaterol 2.5-2.5 mcg/actuation Mist Commonly known as: STIOLTO RESPIMAT Inhale 2 puffs into the lungs daily. 2 puff Quantity: 4 g Refills: 11 umeclidinium-vilanterol 62.5-25 mcg/actuation Dsdv Commonly known as: ANORO ELLIPTA Inhale 1 Inhalation into the lungs daily. 1 Inhalation Quantity: 60 each Refills: 5 * This list has 2 medication(s) that are the same as other medications prescribed for you. Read thedirections carefully, and ask your doctor or other care provider to review them with you. Updated Allergies/ADRs: No Known Allergies Future Appointments and Orders Future Orders Complete By Expires Echocardiogram Transthoracic([facility]) [50028 CPT(R)] 07/25/2019 01/24/2020 Process Instructions: Scheduling Instructions: Questions: Is a Bubble Study requested?: Does the patient have Congenital Heart Disease?: Does patient require sedation?: GA rationale: Referral to Vascular Surgery [PNU413 Custom] As directed Process Instructions: If no progress note charted, please enter Clinical details in comments. Scheduling Instructions: Questions: My question or request is: Follow-up with vascular medicine for pulmonary embolism, patient will require a TTE General Instructions None Patient Instructions Instructions on Discharge to Home Why you were hospitalized - You were admitted for a blood clot in your lungs. You were additionallyfound to have blood clots in your legs. You were continued on a blood thinner given through an IV and discharged on an oral blood thinner. You will be scheduled for follow-up with vascular medicine in 4 weeks for a repeat ultrasound of your heart. Call your doctor or seek medical attention if you develop the following - chest pain, shortness of breath, fever, cough, weakness in an arm or leg Activity level - as tolerated Diet - no change in previous diet Driving - as before hospitalization Shower/Bath - permitted Wound Care - none Home Oxygen therapy - none Changes in Your Medications: Please see medication summary attached Follow-up: You will be call by the [facility] Vascular Medicine department to schedule a follow-up appointment with Dr. Dixon in one month. You will also be scheduled for a repeat echocardiogram (heart ultrasound) in one month as well. Your Inpatient Doctor: MD Rima Heard MD Shantum Misra, MD Chaofan Yuan, MD Your Primary Care Provider: Alber Garcia MD [phone] For questions regarding this document or issues relating to this hospitalization on the Medical Service, please contact your inpatient physician through the [facility] Senior Application Software Engineer . Issues afterhours and on weekends will be handled by the Hospitalist staff on-call. For questions regarding this document or issues relating to this hospitalization on the Medical Service, please contact your inpatient physician through the [facility] Senior Application Software Engineer . Issues afterhours and on weekends will be handled by the English Drawer staff on-call. Signed: Lani Caldwell MD Cardiovascular Medicine Pager [phone] documented in this encounter Discharge Instructions * Patient Instructions* Lani Caldwell MD - 06/25/2019 10:15 AM EDT Instructions on Discharge to Home Why you were hospitalized - You were admitted for a blood clot in your lungs. You were additionallyfound to have blood clots in your legs. You were continued on a blood thinner given through an IV and discharged on an oral blood thinner. You will be scheduled for follow-up with vascular medicine in 4 weeks for a repeat ultrasound of your heart. Call your doctor or seek medical attention if you develop the following - chest pain, shortness of breath, fever, cough, weakness in an arm or leg Activity level - as tolerated Diet - no change in previous diet Driving - as before hospitalization Shower/Bath - permitted Wound Care - none Home Oxygen therapy - none Changes in Your Medications: Please see medication summary attached Follow-up: You will be call by the [facility] Vascular Medicine department to schedule a follow-up appointment with Dr. Dixon in one month. You will also be scheduled for a repeat echocardiogram (heart ultrasound) in one month as well. Your Inpatient Doctor: MD Rima Heard MD Shantum Misra, MD Chaofan Yuan, MD Your Primary Care Provider: Alber Garcia MD [phone] For questions regarding this document or issues relating to this hospitalization on the Medical Service, please contact your inpatient physician through the [facility] Senior Application Software Engineer . Issues afterhours and on weekends will be handled by the Hospitalist staff on-call. * Attachments The following attachments cannot be sent through Care Everywhere. * DVT (Deep Vein Thrombosis): Prevention: General Info (Tanzanian) * Pulmonary Embolism (Tanzanian) documented in this encounter Medications at Time of Discharge Medication Sig Dispensed Refills Start Date End Date lisinopril (PRINIVIL;ZESTRIL) 5 mg Tablet Take 5 mg by mouth daily. 3 06/26/2018 apixaban (ELIQUIS) 5 mg Tablet Take 2 tablets by mouth 2 times daily for 6 days, THEN 1 tablet 2 times daily. 90 tablet 3 06/25/2019 03/26/2022 umeclidinium-vilanterol (ANORO ELLIPTA) 62.5-25 mcg/actuation Disk with DeviceIndications:Chroni c obstructive pulmonary disease, unspecified COPD type Inhale 1 Inhalation into the lungs daily. 60 each 5 01/07/2019 06/13/2023 tiotropium-olodaterol (STIOLTO RESPIMAT) 2.5-2.5 mcg/actuation MistIndications:Stage 2 moderate COPD by GOLD classification Inhale 2 puffs into the lungs daily. 4 g 11 12/12/2018 12/12/2019 PROAIR HFA 90 mcg/actuation HFA Aerosol Inhaler INHALE TWO PUFFS BY MOUTH EVERY 6 HOURS NEEDED 98 08/01/2018 04/10/2022 ADVAIR DISKUS 250-50 mcg/dose Disk with Device INHALE ONE PUFF BY MOUTH TWICE A DAY 3 09/02/2018 11/11/2019 albuterol (PROVENTIL) 2 mg Tablet Take 2 mg by mouth 3 times daily. 11/11/2019 documented as of this encounter Progress Notes * Yumi Rashid RN - 06/25/2019 2:03 PM EDT Pt discharged from unit/hospital. Discharge instructions reviewed, questions answered, verbalized instructions. Pt left w/ cellphone, anesthesiology technologist, clothing, and shoes. No c/o pain, SOB, etc. Daughter [id number] wheeled pt in wheelchair off unit. * Scott Dixon MD - 06/25/2019 5:51 AM EDT Inpatient Cardiology Progress Note Patient Name: Marilyn Savage Date of Admission: 06/23/2019 ( Hospital Day 2 days ) Service: S1 ID: Marilyn Savage??is a 64 y.o.??male??with a history of COPD and HTN??[facility] bilateral [facility]ive PE.?? Active Problems: Active Hospital Problems Diagnosis ??? Pulmonary embolism Resolved Hospital Problems No resolved problems to display. 24 hr events/Subjective: - No acute events overnight - Denies CP, SOB, palpitations, PND, Orthopnea, dizziness/LH, LE swelling or pain, n/v, abd pain Telemetry: Scheduled Meds: ??? apixaban 10 mg Oral BID ??? budesonide-formoterol 2 Inhalation Inhalation BID ??? sodium chloride 0.9 % (flush) 5 mL Intravenous BID ??? sodium chloride 0.9 % (flush) 5 mL Intravenous BID ??? aspirin 81 mg Oral Daily ??? tiotropium bromide 2 puff Inhalation Daily Continuous Infusions: PRN Meds:.ipratropium-albuterol, sodium chloride 0.9 % (flush), nitroGLYcerin, sodium chloride 0.9 % (flush), lidocaine, acetaminophen, calcium carbonate Physical Exam: Last value Range last 24 hrs Temperature Temp: 36.8 ??C (98.2 ??F) Temp: [36.5 ??C (97.7 ??F)-36.8 ??C (98.2 ??F)] Heart Rate Heart Rate: 73 Heart Rate: [73-109] Blood Pressure BP: 111/73 BP: (96-120)/(69-92) Respiratory Rate Resp: 27 Resp: [17-31] SpO2 SpO2: 96 % SpO2: [91 %-96 %] Intake/Output Summary (Last 24 hours) at 06/25/2019 0551 Last data filed at 06/25/2019 0400 Gross per 24 hour Intake 935.1 ml Output 1350 ml Net -414.9 ml cumulative I/O's since admission: Patient Vitals for the past 168 hrs: Weight 06/23/192144 92.7 kg (204 lb 6.4 oz) Admit wt: 92.72 kg Gen: Pleasant male in NAD HEENT: MMM CV: RRR, s1/s2 of nl character and amplitude, no m/r/g, No Resp: CTAB, normal WOB on room air Abd: Nondistended, soft, NT, NABS Ext: WWP, 2+ dp/pt pulses, no edema Neuro: Alert and responsive without focal deficit Labs Recent Labs 06/25/1939906/24/19 0606/23/192144 WBC 11.3* 7.9 9.5 HGB 12.3* 13.1* 14.2 HCT 38.6* 39.6* 43.3 PLATELET 255 262 297 Recent Labs 06/25/1939906/24/19 0606/23/192144 NA 138 138 136 K 4.7 4.6 4.7 CL 103 102 99 CO2 24 23 20* BUN 23* 17 14 CREATININE 1.10 1.03 1.09 Recent Labs 06/23/192144 AST 20 ALT 20 ALKPHOS 61 BILITOT 0.3 BILIDIR <0.1 Recent Labs 06/25/19 0400 06/24/19 0605 06/23/192144 CALCIUM 8.6 9.3 9.4 MAGNESIUM 0.94 0.94 0.89 PHOS -- -- 2.7 Recent Labs 06/23/192144 INR 1.2 PT 13.8* PTT 157* Recent Labs 06/25/19 0400 06/24/19 1435 06/23/192144 TROPONINT <0.01 <0.01 0.02* 06/24/19 TTE: SUMMARY: ?? 1. Patient with known pulmonary embolism. Prior study last night by the on-call fellow. [...] Please see remainder of report for additional findings. Assessment: Marilyn Savage??is a 64 y.o.??male??with a history of COPD and HTN??presenting in transfer from [facility] for LE DVT and bilateral submassive PE.?? Pt switched yesterday from heparin ggt to apixaban 10mg BID twice a day. Will need to be down-titrated to 5mg BID on 07/02/19. Pt is asymptomatic and satting well, with no findings on exam. He is stable for discharge and will need a follow-up with cardiology in 4 weeks. His apixaban will need to be down-titrated after 7 days (07/02), see below. Plan: Discharge to home #Submassive Pulmonary Embolism??(PESI Class IV, 4.0 - 11.4% 30-day mortality) - Continue Apixaban 10 mg BID x 7 days then 5mg afterwards - Future cardiology follow-up w/ Dr. Dixon ?? #COPD??(GOLD II B) - Continue Spiriva - Continue Symbicort - Continue duonebs - Consider pulmonology consult in AM? #BROWN - Continue Home CPAP ?? Routine Diet:??NPO DVT:??apixaban GI:??None indicated Code Status:??Full Code Lennie Parrish MD, PGY-1 Cardiology M1-S1, Team Pager [phone] 06/25/19 CARDIOLOGY ATTENDING NOTE Patient: Marilyn Savage Date of Service: 06/25/2019 Date of Admission: 06/23/2019 Length of Stay Hospital Day 2 days Please see the above note by Dr. Linares for details. I have interviewed and examined the patient independently and I concur with the assessment and plan. The case was discussed on cardiology roundsand we reviewed the plan of care with the team and patient. In addition, I certify that I am a [facility] credentialed attending provider with admitting privileges and that the patient meets or has met medical necessity to require an inpatient IPI level of care meeting a minimum of two midnights. Mr. Savage is a 64 year old man with history of hypertension and COPD who was transferred to [facility] with submassive (intermediate-high risk) PE. He was hospitalized ~3 months ago at local hospital forpneumothorax requiring chest tube (3 days). He was transferred to [facility] for consideration of advanced therapies. . TTE with moderately dilated RV with moderately reduced function, PASP 48 mm Hg. DVT duplex with right acute femoral DVTand chronic popliteal DVT. He was started on AC with IV heparin and felt much better; switched to apixaban loading dose yesterday. He continues to feel well this morning. Plan is to discharge today without outpatient follow-up with me in 4 weeks with TTE prior to visit. This VTE may have provoked given recent hospitalization within last 3 months; but he also has history of provoked right DVT after knee surgery. Thus, consider long-term AC (can use apixaban 2.5 mg BID after primary treatment). Will discuss further with patient as outpatient. Scott Dixon MD, MPH Cardiovascular Medicine * Christina Parks RT - 06/25/2019 4:59 AM EDT Respiratory Therapy NIV Note NIV Settings: NIV Mode: Auto Titrating NIV Measurements: Resp: 20 Mve: 13 Leak (L/min): 45 L/min Vte: 996 SpO2: 96 % Current Medications:symbicort BID, Duoneb Q4 PRN, Spiriva respimat daily. , Skin Assessment: NIV Skin Assessment WDL: WDL Mepilex Applied: No Nares Assessment WDL: WDL Assessment: Pt compliant overnight with CPAP. RT Araceli * Scott Dixon MD - 06/24/2019 8:21 AM EDT Inpatient Cardiology Progress Note Patient Name: Marilyn Savage Date of Admission: 06/23/2019 ( Hospital Day 1 day ) Service: S1 ID: Marilyn Savage is a 64 y.o. male with a history of COPD and HTN presenting in transfer from [facility] for bilateral submassive PE. Active Problems: Active Hospital Problems Diagnosis ??? Pulmonary embolism Resolved Hospital Problems No resolved problems to display. 24 hr events/Subjective: - No acute events overnight - Denies CP, SOB, palpitations, PND, Orthopnea, dizziness/LH, LE swelling or pain, n/v, abd pain Telemetry: Scheduled Meds: ??? budesonide-formoterol 2 Inhalation Inhalation BID ??? sodium chloride 0.9 % (flush) 5 mL Intravenous BID ??? sodium chloride 0.9 % (flush) 5 mL Intravenous BID ??? aspirin 81 mg Oral Daily ??? tiotropium bromide 2 puff Inhalation Daily Continuous Infusions: ??? heparin (porcine) 900 Units/hr (06/24/19 0715) PRN Meds:.ipratropium-albuterol, sodium chloride 0.9 % (flush), nitroGLYcerin, sodium chloride 0.9 % (flush), lidocaine, acetaminophen, heparin (porcine) AND heparin (porcine), calcium carbonate Physical Exam: Last value Range last 24 hrs Temperature Temp: 36.5 ??C (97.7 ??F) Temp: [36.5 ??C (97.7 ??F)-36.6 ??C (97.9 ??F)] Heart Rate Heart Rate: 91 Heart Rate: [83-106] Blood Pressure BP: 112/83 BP: (88-126)/(57-94) Respiratory Rate Resp: 17 Resp: [16-30] SpO2 SpO2: 94 % SpO2: [92 %-97 %] Intake/Output Summary (Last 24 hours) at 06/24/2019 0822 Last data filed at 06/24/2019 0800 Gross per 24 hour Intake 437.42 ml Output 875 ml Net -437.58 ml cumulative I/O's since admission: Patient Vitals for the past 168 hrs: Weight 06/23/192144 92.7 kg (204 lb 6.4 oz) Admit wt: 92.72 kg Gen: Pleasant male in NAD HEENT: MMM CV: RRR, s1/s2 of nl character and amplitude, no m/r/g, no JVD Resp: CTAB, normal WOB on room air Abd: Nondistended, soft, NT, NABS Ext: WWP, 2+ dp/pt pulses, no peripheral edema. RLE appears larger in diameter than LLE (chronic) Neuro: Alert and responsive without focal deficit Labs Recent Labs 06/24/1960406/23/192144 WBC 7.9 9.5 HGB 13.1* 14.2 HCT 39.6* 43.3 PLATELET 262 297 Recent Labs 06/24/1960406/23/192144 NA 138 136 K 4.6 4.7 CL 102 99 CO2 23 20* BUN 17 14 CREATININE 1.03 1.09 Recent Labs 06/23/192144 AST 20 ALT 20 ALKPHOS 61 BILITOT 0.3 BILIDIR <0.1 Recent Labs 06/24/1960406/23/192144 CALCIUM 9.3 9.4 MAGNESIUM 0.94 0.89 PHOS -- 2.7 Recent Labs 06/23/192144 INR 1.2 PT 13.8* PTT 157* Recent Labs 06/23/192144 TROPONINT 0.02* Imaging/Studies: No orders to display Assessment: Marilyn Savage is a 64 y.o. male with a history of COPD and HTN presenting in transfer from [facility] for bilateral submassive PE. Pt started on heparin ggt overnight. He is moderate risk and his PE can be managed with be managed with DOAC, as opposed to warfarin. No clear cause for why he has PE. Pt recently hospitalized x [address] effusion requiring chest tube. Otherwise no immobilization or other recent surgeries. Pt is not morbidly obese. Plan: ?? #Submassive Pulmonary Embolism (PESI Class IV, 4.0 - 11.4% 30-day mortality) - Switch from heparin ggt to apixaban today at 5pm - Duplex Doppler to assess for DVT in LE. - TTE for baseline echo - Apixaban 10 mg BID x 7 days then 5mg afterwards - Future cardiology follow-up w/ Dr. Dixon ?? #COPD (GOLD II B) - Continue Spiriva - Continue Symbicort - Continue duonebs - Consider pulmonology consult in AM ?? #BROWN - Continue Home CPAP ?? Routine Diet: NPO DVT: Heparin gtt to apixaban GI: None indicated Code Status: Full Code Lennie Parrish MD, PGY-1 Cardiology M1-S1, Team Pager [phone] 06/24/19 ATTENDING ADDENDUM Please see my addendum in the H&P note dated 06/23/19. * Christina Parks RT - 06/24/2019 3:19 AM EDT Respiratory Therapy NIV Note NIV Settings: NIV Mode: Auto Titrating NIV Measurements: Resp: 23 Mve: 14.5 Leak (L/min): 45 L/min Vte: 585 SpO2: 93 % Laboratory Skin Assessment: NIV Skin Assessment WDL: WDL Mepilex Applied: No Nares Assessment WDL: WDL Breath Sounds: clear Assessment: Pt placed on V30 auto titrating CPAP. Compliant overnight. RT Araceli documented in this encounter H&P Notes * Scott Dixon MD - 06/23/2019 10:11 PM EDT Admission History and Physical Cardiology Patient Name: Marilyn Savage Responsible Attending: Scott Dixon MD PCP: Alber Garcia MD PCP phone #: [phone] ID/Chief Complaint: Bilateral Submassive Pulmonary Embolism History of Present Illness: Marilyn Savage is a 64 y.o. male with a history of COPD and HTN presenting in transfer from [facility] for bilateral submassive PE. Patient was in his usual state of health until this past Sunday when he began to feel tired after engaging in heavy physical activity (helping clean out storage unit, lifting furniture, etc.). The feelings of fatigue were not accompanied by chest pain, shortness of breath, respirophasic chest pain, palpitations, lightheadedness, or dizziness. He does, however, get chronically lightheaded whenhe goes into coughing fits as a result of his COPD. This morning, he woke up chest pain free but then developed L-sided chest pain at the mid-clavicular line. The pain was sharp like being stabbed with a pencil and was 8/10 in intensity and worsenedby taking deep breaths. This was accompanied by worsening shortness of breath. These feelings prompted him to present to [facility] ED. Upon presentation his vitals were 36.6C, 110bpm, 115/78, RR 22, SpO2 95% EKG demonstrated S1Q3T3 pattern, sinus tachycardia, and TWIs in V1-V4. His d- dimer was elevated to 7060 and his CTA was positive for bilateral diffuse/multifocal pulmonary emboli with high concern for early right heart strain. His troponins were elevated to 0.44 (ULN 0.06). He was started on a hep maddie gtt, but was initially treated with Methylprednisolone 125mg and Duonebs for presumed COPD exacerbation. Upon discovery of the PE, transfer to [facility] was requested for consideration of EKOS. Of note, he had a pneumothorax 2/2 ruptured pulmonary bleb ~3 months ago that required chest tube placement. He states that he had remained physically active after this and did not suffer from prolonged immobility. 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 OSH labs prior to transfer: 14.7 8.9 H/H 300 45.0 140 102 17 Glc Ca 9.1 4.2 27.1 1.18 122 Mg 2.3 Phos D-dimer: 7060 Review of Systems: Positives in bold, otherwise negative. Constitutional - Weight loss, Fevers, Chills, Night Sweats, Fatigue HEENT - Headache, Vision change Cardiovascular - See HPI Pulmonary - See HPI GI - Melena, Hematochezia, Abdominal pain, Constipation, Diarrhea Urinary - Dysuria, Frequency, Urgency, Hematuria Problem List/Past Medical History Patient Active Problem List Diagnosis ??? Pulmonary embolism Meds: No current facility-administered medications on file prior to encounter. Current Outpatient Medications on File Prior to Encounter Medication Sig Dispense Refill ??? umeclidinium-vilanterol (ANORO ELLIPTA) 62.5-25 mcg/actuation Disk with Device Inhale 1 Inhalation into the lungs daily. 60 each 5 ??? PROAIR HFA 90 mcg/actuation HFA Aerosol Inhaler INHALE TWO PUFFS BY MOUTH EVERY 6 HOURS NEEDED 98 ??? lisinopril (PRINIVIL;ZESTRIL) 5 mg Tablet TAKE ONE TABLET BY MOUTH EVERY DAY 3 ??? albuterol (PROVENTIL) 2 mg Tablet Take 2 mg by mouth 3 times daily. ??? tiotropium-olodaterol (STIOLTO RESPIMAT) 2.5-2.5 mcg/actuation Mist Inhale 2 puffs into the lungs daily. 4 g 11 ??? ADVAIR DISKUS 250-50 mcg/dose Disk with Device INHALE ONE PUFF BY MOUTH TWICE A DAY 3 Allergies: No Known Allergies Family History: Family History Problem Relation Age of Onset ??? Chronic Obstructive Pulmonary Disease Mother ??? Heart Disease Father ??? Cancer Paternal Uncle Social History: Social History Tobacco Use ??? Smoking status: Former Smoker Packs/day: 1.50 Years: 40.00 Pack years: 60.00 Last attempt to quit: 11/17/2017 Years since quittin.6 ??? Smokeless tobacco: Never Used Substance Use Topics ??? Alcohol use: Not on file ??? Drug use: Not on file Tobacco: [id number] history. Quit 11/17/17 EtOH: Socially Drugs: Denies Occupation: Retired [place], [place]. With daughter. Vitals: Last value Range last 24 hrs Temperature Temp: 36.6 ??C (97.9 ??F) Temp: [36.6 ??C (97.9 ??F)] Heart Rate Heart Rate: 87 Heart Rate: [87-106] Blood Pressure BP: 100/71 BP: (95-126)/(57-94) Respiratory Rate Resp: 23 Resp: [16-30] SpO2 SpO2: 93 % SpO2: [92 %-97 %] No intake/output data recorded. Examination: General: AAOx3. Mildly anxious, but NAD. Speaking comfortably in full sentences. HEENT: EOMI, PERRL, anicteric sclera. Oropharynx clear w/o lesions. Moist mucous membranes. JVD notappreciated. Lymph: No obvious cervical, axillary, epitrochlear or inguinal LAD Cardiac: Regular rhythm, tachycardic rate. S1/S2. No murmurs, rubs or gallops. Respiratory: Nonlabored. Clear to auscultation bilaterally. Good air movement. No wheezes, rhonchi,rales. Abd: + BS; soft, non-tender, non-distended, no obvious masses. Ext: No peripheral edema. Peripheral pulses 2+. RLE chronically larger in diameter than LLE Neuro: II-XII grossly intact.No focal deficits, sensation intact to crude touch Skin: No obvious rashs, lesions or petechiae Laboratory: Recent Labs 06/23/19 214 WBC 9.5 HGB 14.2 HCT 43.3 PLATELET 297 NEUTROABS 8.73* Recent Labs 06/23/19 214 NA 136 K 4.7 CL 99 CO2 20* BUN 14 CREATININE 1.09 Recent Labs 06/23/19 214 AST 20 ALT 20 ALKPHOS 61 BILITOT 0.3 BILIDIR <0.1 Recent Labs 06/23/19 2145 CALCIUM 9.4 MAGNESIUM 0.89 PHOS 2.7 Recent Labs 06/23/19 214 PT 13.8* PTT 157* No results for input(s): LDH, URICACID in the last 168 hours. Other Labs: None Microbiology: None Relevant Diagnostic Studies: PFTs (12/12/18) FEV1: 45% FVC: 79% FEV1/FVC: 43.1% CT Angiography Chest with Contrast Bilateral diffuse/multifocal pulmonary emboli with high concern for early R heart strain Bedside TTE Normal LV function with moderate-severely dilated RV with moderately reduced RV function Assessment/Plan: Marilyn Savage is a 64 y.o. male with a history of COPD and HTN presenting in transfer from [facility] for bilateral submassive PE. There do not appear to be any provoking factors behind the patient's PE. 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 His R leg is chronically larger than his L leg after a arthroplasty ~20 years ago, so this may have masked some unilateral leg swelling. A Duplex study should help clarify if DVT is present. Regardless, we will continue treatment with heparin gtt and discuss EKOS with him in the morning. We will continue to treat his COPD with his home medications (or close formulary alternatives). Given his COPD GOLD IIB, and his unique home medication regimen, a consult to pulmonology for management may be advisable. #Submassive Pulmonary Embolism (PESI Class IV, 4.0 - 11.4% 30-day mortality) - Heparin gtt - NPO at midnight - Consideration for EKOS therapy in AM #COPD (GOLD II B) - Continue Spiriva - Continue Symbicort - Continue duonebs - Consider pulmonology consult in AM #BROWN - Continue Home CPAP Routine Diet: NPO DVT: Heparin gtt GI: None indicated Code Status: Full Code London Linares MD Internal Medicine, PGY-2 06/24/19 4:01 AM CARDIOLOGY ATTENDING ADMISSION NOTE Patient: Marilyn Savage Date of Service: 06/24/2019 Date of Admission: 06/23/2019 Length of Stay Hospital Day 1 day Please see the above note by Dr. Linares for details. I have interviewed and examined the patient independently and I concur with the assessment and plan. The case was discussed on cardiology roundsand we reviewed the plan of care with the team and patient. In addition, I certify that I am a D-H credentialed attending provider with admitting privileges and that the patient meets or has met medical necessity to require an inpatient IPI level of care meeting a minimum of two midnights Mr. Savage is a 64 year old man with history of hypertension and COPD who was transferred to [facility] with submassive (intermediate-high risk) PE. He was hospitalized ~3 months ago at local hospital forpneumothorax requiring chest tube (3 days). He has felt well until yesterday when he developed leftsided chest pain. Outside CTA-PE demonstrated bilateral segmental PE with RV strain. Troponin mildly elevated 0.02 and proBNP ~2700. TTE with moderately dilated RV with moderately reduced function, PASP 48 mm Hg. DVT duplex with right acute femoral DVTand chronic popliteal DVT. He has been hemodynamically stable w/o tachycardia or hypotension. He feels much better this morning; he is on AC with IV heparin. Given improvement in symptoms and stable vital signs, will continue conservative measures with anticoagulation without advanced therapies. Continue anticoagulation with IV heparin for now and switch to apixaban tonight (10 mg BID x 7 days, 5 mg BID thereafter). Probable discharge tomorrow if he feels well, with follow up with me and TTE in 4 weeks. This VTE may have provoked given recent hospitalization within last 3 months; but he also has history of provoked right DVT after knee surgery. Thus, consider long-term AC (can use apixaban 2.5 mg BID after primary treatment). Will discuss further with patient as outpatient. Scott Dixon MD, MPH Cardiovascular Medicine documented in this encounter Miscellaneous Notes * Plan of Care - Amelia Guerrero, PT - 06/24/2019 7:18 PM EDT Physical Therapy Evaluation Patient profile: Marilyn Savage??is a 64 y.o.??male??with a history of COPD and HTN??presenting in transfer from [facility] for bilateral submassive PE. Patient with the following active problems: Past Medical History: Diagnosis Date ??? COPD (chronic obstructive pulmonary disease) ??? Emphysema of lung ??? Fractures right ankle fractureas child ??? GERD (gastroesophageal reflux disease) ??? Hypertension ??? Lung disease Past Surgical History: Procedure Laterality Date ??? JOINT REPLACEMENT Right 1989 Social History: Pt lives with his dtr. Home is 1 level without stairs to enter. 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 Does not use device. Had been going to Pulmonary rehab x 3 weeks [employer]. Precautions/Special Considerations: Heparin drip Mobility and Positioning Recommendations: ?? Pt to ambulate 3-4x/daily with nursing, no device; supervision ?? Please encourage up to chair for meal times as able. Subjective: ???I feel good. I was getting really winded the day before I came in.?? Objective: Pt seen for evaluation today in the CVCC. Pain: none reported Vital Signs: At Rest With Activity SpO2 (RA) 94% 89% BP 104/73mmHg 107/77 mmHg HR 112 bpm 128 bpm Mental Status: alert, oriented to person, place, and time Bed Mobility: Supine to Sit: indep Transfers: Sit to Stand: indep Stand to Sit: indep Gait: Distance: 160 ft; 3 standing rest breaks for PLB and decrease HR. HR 128 with ambulation. ToleratedRA. Device used: none Level of assist: supervision Balance: good Education: patient has been educated on Transfers, Breathing exercises, Precautions/protocol and Activity pacing/Energy conservation and verbalizes understanding. Patient status, treatment, and mobility recommendations discussed with nursing. Assessment: Marilyn Savage was seen today for physical therapy evaluation. Pt presents today with impaired breathing breathing mechanics, impaired activity tolerance. Pt requires close hemodynamic monitoring. Pt tolerated ambulation today around the unit. 3 standing rest breaks and cues for breathing techniques. Pt is close to his baseline from a mobility standpoint. Pt is safe for home d/c with his dtr. Plan to resume Pulmonary rehab when cleared by MD. Discharge Recommendations: Based on the current findings, Anticipated Discharge Disposition: (P) home with assist when medically ready for hospital discharge. Equipment needs: No equipment necessary Plan: Home when medically ready. 2017 PT Evaluation Code Rationale: ?? Diagnosis [...] Unstable/Unpredictable x ?? Clinical decision making of high complexity based on pt's functional performance as outlined in this evaluation. Total Evaluation Minutes, Physical Therapy: (P) 20(eval) Time IN/OUT:[id number] AMELIA GUERRERO, PT Pager: [phone] Physical Therapy Inpatient Rehabilitation Department * Initial Assessments - Susannah Angel RN - 06/24/2019 2:23 PM EDT Office of Care Management Initial Assessment SUSANNAH ANGEL RN reviewed record and discussed patient with Care Team. Source of Information: Patient interview Introduced self/reviewed role; services accepted. Reason for Hospitalization: Pulmonary Embolism Past Medical History: Diagnosis Date ??? COPD (chronic obstructive pulmonary disease) ??? Emphysema of lung ??? Fractures right ankle fractureas child ??? GERD (gastroesophageal reflux disease) ??? Hypertension ??? Lung disease Hospitalizations Within the Past 30 Days: none (did have admission a few months ago for pneumothorax related to ruptured pulmonary bleb) Anticipated Length Of Stay (If known): anticipate to floor today and home tomorrow (per primary team) Current Decision-Making Capacity: Patient is alert and oriented and able to make decisions. Advance Care Planning: Patient states that s/he has advanced directives. We do not have a copy in the medical record and have asked patient to have a copy brought in. He states his daughter, Heidi Rowland is DPOA HC and his friend, Perez Conley (?Sp) is alternate. Current Coping/Education/Information Needs: Coping well with hospital stay and feels updated on issues and plan. Current Functional Ability: at functional baseline. Currently in CVCC with plan to floor when bed is available. 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 There are no stairs toenter. Social & Family Supports/Community Resources: supportive daughter is present. She works as teacher during day. Behavioral Health History: Denies any history of mental illness, depression or anxiety Substance Use/Abuse: Quit smoking in 2018; has 2 beers and pizza every Sunday with his friend, Doesnot use any non prescribed drugs or marijuana. Other Pertinent/Service Specific Information: n/a Health/Prescription Coverage: Primary Insurance: MEDICARE Secondary Insurance: [employer] [place] Prescription Coverage: yes Preferred Pharmacy: [facility] Other: n/a Primary Care Provider: Alber Garcia MD [phone] Patient/Caregiver Goals of Treatment: home without any needs when medically ready Potential Needs for Transition of Care: Rehab/SNF: n/a Home Health: n/a DME: n/a Dialysis: n/a Community Resources: n/a Transportation: daughter can drive after school tomorrow Other: n/a Anticipated Barriers to Discharge/Special Considerations: none Assessment: Independent gentleman admitted with PE. He is living with his daughter and her family on first level of home. He is insured with Medicare and [employer] with prescription coverage. He hasadvanced directives-we do not have a copy and he will have daughter bring one in. Do not anticipateany needs on discharge. Plan: A member of the Care Management team will continue to monitor progress, follow for continuity of care and assist with transition of care planning. SUSANNAH ANGEL RN Pager: [phone] * Consult Note - Juan Zamudio DO - 06/24/2019 1:42 AM EDT Images from the original note were not included. DAVID-PE Consult Note Reason for Consultation: Requesting Provider: Fantasma Landaverde MD [address] [place] [address] [place] [address] Patient Location: HPI: Marilyn Savage is a 64 y.o. male with a hx of moderate COPD (Gold stage 2b) presenting with acute onset SOB and pleuritic chest pain starting morning of 06/23. He has a hx of pneumothorax due to bobbed emphysematous bleb which is what he initially attributed this to. [facility]where he was found to be tachycardic with b/l breath sounds and clear lungs. D-dimer was elevated and CTA PE showed b/l pulmonary embolism and evidence of right heart strain. Pt was started on heparin gtt and transferred for consideration of advanced therapies. On arrival here pt was resting comfortably on room air w/ HR in 90s and SBP in 115-120s. Pt denies any recent surgery or prolonged travel. 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 No prior hx of VTE. Past Medical History: Past Medical History: Diagnosis Date ??? COPD (chronic obstructive pulmonary disease) ??? Emphysema of lung ??? Fractures right ankle fractureas child ??? GERD (gastroesophageal reflux disease) ??? Hypertension ??? Lung disease Past Surgical History: Past Surgical History: Procedure Laterality Date ??? 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, Have you ever: - Been exposed to asbestos: Yes - Worked in a mine or a quarry: No - Worked in the [employer]: No - Worked with automotive brakes: Yes - Worked in plumbing or heating: No - Worked with vapors, dusts, gas or fumes: Yes If yes to any then details are: Residence In what state were you born: [place] In what other states have you lived: [place] Home is approximately > 20 years old Evidence of vermin (mice / cockroaches) in the home: No Evidence of mold in the home: No Any smokers in the home: No Fuel type: propane, kitchen stove is gas - not a lot of cooking Exposures and Home Help Pets: none Any TB exposure: No Any assistance in the home: independently at home Family History: Family History Problem Relation Age of Onset ??? Chronic Obstructive Pulmonary Disease Mother ??? Heart Disease Father ??? Cancer Paternal Uncle ALLERGIES: No Known Allergies MEDICATIONS: Current Facility-Administered Medications: ??? budesonide-formoterol (SYMBICORT) 160-4.5 mcg/actuation inhaler 2 Inhalation, 2 Inhalation, Inhalation, BID, London Linares MD, 2 Inhalation at 06/24/19 0018 ??? ipratropium-albuterol (DUONEB) 0.5 mg-3 mg(2.5 mg base)/3 mL nebulizer solution 3 mL, 3 mL, Nebulization, Q4H PRN, London Linares MD ??? sodium chloride 0.9 % (flush) flush 5 mL, 5 mL, Intravenous, BID, London Linares MD ??? sodium chloride 0.9 % (flush) flush 5-20 mL, 5-20 mL, Intravenous, Q1 Min PRN, London Linares MD ??? nitroGLYcerin (NITROSTAT) SL tablet 0.4 mg, 0.4 mg, Sublingual, Q5 Min PRN, London Linares MD ??? sodium chloride 0.9 % (flush) flush 5 mL, 5 mL, Intravenous, BID, London Linares MD ??? sodium chloride 0.9 % (flush) flush 5-20 mL, 5-20 mL, Intravenous, Q1 Min PRN, London Linares MD ??? lidocaine (XYLOCAINE) 10 mg/mL (1 %) injection 3 mg, 0.3 mL, Subcutaneous, Once PRN, London Linares MD ??? acetaminophen (TYLENOL) tablet 650 mg, 650 mg, Oral, Q4H PRN, London Linares MD ??? heparin (porcine) injection 0-4,000 Units, 0-4,000 Units, Intravenous, BOLUS HEPARIN PP ANDheparin 25,000 units in dextrose 5% 500 mL infusion, 0-5,000 Units/hr, Intravenous, Continuous, London Linares MD, Last Rate: 20 mL/hr at 06/24/19 010, 1,000 Units/hr at 06/24/19 010 ??? aspirin chewable tablet 81 mg, 81 mg, Oral, Daily, London Linares MD ??? calcium carbonate (Tums) chewable tablet 500-1,000 mg, 500-1,000 mg, Oral, Q4H PRN, London Linares MD ??? tiotropium bromide (SPIRIVA RESPIMAT) 2.5 mcg/actuation actuation mist for inhalation 2 puff, 2puff, Inhalation, Daily, London Linares MD ROS: 10 point ROS negative other than state in HPI . PHYSICAL EXAM: Constitutional: In general, alert and oriented X 3 Vitals Admission (Current) from 06/23/2019 in Cardiovascular [facility] Weight 92.7 kg (204 lb 6.4 oz) Height 180.3 cm (5' 11) BSA (Calculated - sq m) 2.15 sq meters BMI (Calculated) 28.5 Temp 36.6 ??C (97.9 ??F) Temp src Oral Heart Rate (!) 101 Heart Rate from SpO2 98 bpm Heart Rate Source Monitor Resp 16 BP 97/57 Patient Position Sitting SpO2 93 % Gen: NAD, A&Ox3 HEENT: sclera non-icteric, PERRL, MMM CV: RRR, no m/r/g, nl s1, s2 Pulm: CTA b/l, breathing non-labored Abd: soft, NT, ND, +nabs Ext: no edema, no clubbing, no cyanosis. DP pulses equal and full b/l Chest/Back - no spinal tenderness, n Neuro: no focal deficits grossly noted. Orientation - person, place and time. Cranial nerves intact, Strength - 5/5 upper and lower extremities, Sensation - light touch intact, Extremity: RLE:No LE edema LLE: No LE edema RUE: 2+ radial pulse LUE: 2+ radial pulse DIAGNOSTIC TESTS: ECG: EKG: sinus tachycardia w/ borderline right axis deviated and T wave inversion in V3-V4 ?? CTA: Per my read b/l pulmonary emboli with segmental in the right PA and subsegmental in left PA Echo: Bedside echo done by myself showing normal LV function with moderate- severely dilated RV withmoderately reduced RV function. Unable to assess PA pressures 5: Biomarkers: Trop: 0.02 BNP: 2675 sPESI (age > 80, history of CP disease, history of Ca, HR> 110 bpm; BP < 100 mm hg, O2 sat< 90%): 2 A/P: Marilyn Savage is a 64 y.o. male presents with high risk acute PE. Pt currently hemodynamically stable and on room air. Will continue heparin gtt and discuss with PE team in am for considerationfor EKOS. Juan Zamudio DO [employer] PGY-4 06/24/2019 * Consult Note - Christina Parks RT - 06/24/2019 12:09 AM EDT Respiratory Care Department Consult / Referral Note History: Marilyn Savage is a 64 y.o. male with a PMHx significant for BROWN who was admitted to the hospital for pulmonary embolism. Admission Date/Time 06/23/2019 9:54 PM Hospital Day 1 day Vital Signs: Patient Vitals for the past 8 hrs: Temp Pulse Resp BP SpO2 O2 Device 06/23/192134 -- (!) 106 20 119/88 95 % -- 06/23/19 2145 36.6 ??C (97.9 ??F) 99 30 105/90 95 % RA 06/23/192199 -- (!) 103 23 124/85 97 % -- 06/23/195 -- 96 16 (!) 124/93 94 % -- 06/23/192229 -- 97 19 (!) 119/93 93 % -- 06/23/19 2300 -- 89 21 117/90 92 % -- 06/23/19 2330 -- 90 21 (!) 126/94 92 % -- 06/24/19 0008 -- -- 16 -- -- -- Oxygen Delivery: Interface: None (Room air) Flow: FiO2: Intake/Output Summary (Last 24 hours) at 06/24/2019 0009 Last data filed at 06/23/2019 2200 Gross per 24 hour Intake -- Output 175 ml Net -175 ml Plan / Recommendation: Non Invasive Ventilation: Provide CPAP to treat BROWN. RT Araceli documented in this encounter Plan of Treatment Upcoming Encounters Date Type Department Care Team (Late st Contact Info) Description 05/02/2024 11:00 AM EDT [place] [address] Cristian Carolina Jr., MD [facility] [place] [address] Scheduled Referrals Name Type Priority Associated Diagnoses Orde r Schedule Referral to Vascular Surgery Outpatient Referral Routine Acute pulmonary embolism with acute cor pulmonale, unspecified pulmonary embolism type Ordered: 06/25/2019 documented as of this encounter Procedures Procedure Name Priority Date/Time Associated Diagnosis Comments BMP W/FASTING GLUCOSE Routine 06/25/2019 4:00 AM EDT HEMOGRAM Routine 06/25/2019 4:00 AM EDT DIFFERENTIAL, AUTOMATED Routine 06/25/20 19 4:00 AM EDT BLUE TUBE HOLD Routine 06/25/2019 4:00 AM EDT HC CBC,PLT & AUTO DIFF Routine 9 4:00 AM EDT HC TROPONIN T STAT 06/25/2019 4:00 AM EDT HC MAGNESIUM, SERUM Routine 06/25/2019 4 :00 AM EDT HC UNFRACTIONATED HEPARIN (HEP UFH) STAT 06/24/2019 2:35 PM EDT HC TROPONIN T STAT 06/24/2019 2:35 PM EDT ECHO COMPLETE W CONTRAST Routine 06/24/2019 10:58 AM EDT Type 2 myocardial infarction DUPLEX FOR DVT BILAT LEGS Routine 06/24/2019 7:04 AM EDT Acute saddle pulmonary embolism with acute cor pulmonale HC UNFRACTIONATED HEPARIN (HEP UFH) STAT 06/24/2019 6:05 AM EDT BMP W/FASTING GLUCOSE Routine 06/24/2019 6:05 AM EDT HEMOGRAM Routine 06/24/2019 6:05 AM EDT DIFFERENTIAL, AUTOMATED Routine 06/24/20 19 6:05 AM EDT HC CBC,PLT & AUTO DIFF Routine 9 6:05 AM EDT HC MAGNESIUM, SERUM Routine 06/24/2019 6 :05 AM EDT LIPID PANEL (REFLEX DIRECT LDL) Routine 06/24/2019 6:05 AM EDT EKG 12-LEAD Routine 06/23/2019 11:50 PM EDT Type 2 myocardial infarction HC HEMOGLOBIN A1C Routine 06/23/2019 11: 05 PM EDT HEPARIN (UNFRACTIONATED) LEVEL Routine 06/23/2019 9:45 PM EDT SCAN, PERIPHERAL BLOOD Routine 9 9:45 PM EDT HEMOGRAM Routine 06/23/2019 9:45 PM EDT DIFFERENTIAL, AUTOMATED Routine 06/23/20 19 9:45 PM EDT BLUE TUBE HOLD Routine 06/23/2019 9:45 PM EDT GREEN TUBE HOLD Routine 06/23/2019 9:45 PM EDT LAVENDER TUBE HOLD Routine 06/23/2019 9: 45 PM EDT APTT Routine 06/23/2019 9:45 PM EDT PROTHROMBIN TIME Routine 06/23/2019 9:45 PM EDT TROPONIN Routine 06/23/2019 9:45 PM EDT TSH Routine 06/23/2019 9:45 PM EDT PHOSPHORUS Routine 06/23/2019 9:45 PM EDT PRO-BRAIN NATRIURETIC PEPTIDE Routine 06/23/2019 9:45 PM EDT MAGNESIUM Routine 06/23/2019 9:45 PM EDT HEPATIC FUNCTION PANEL Routine 9 9:45 PM EDT BASIC METABOLIC PANEL (NON-FASTING) Routine 06/23/2019 9:45 PM EDT documented in this encounter Results * ECHO COMPLETE W CONTRAST (07/15/2019 10:15 AM EDT) EF 65 HEARTLAB SYSTEM Anatomical Region Laterality Modality Other 07/15/2019 Narrative 07/15/2019 10:37 AM EDT Procedure: ?Transthoracic Echocardiogram Patient: ?SAWYER SANDERS ?(Age): 1955(64y) Med Rec#: ? [id number] ?Sex: ?M ? Site Loc: ? Ht / Wt: ??180(cm)/95.26(k Pt. Loc: ?Echo Lab ?BSA: ?2.15 Study Date: ?? 07/15/2019 ?Pt. Type: Inpatient Tape: ? Referring: FRED Reading: Doe Yip ([id number]) Hiv Cts Specialist: Fantasma Eaton MS, RUST Diagnosis: *Other pulmonary embolism with acute cor pulmonale (I26.09) BP: ? 127/85 SUMMARY: 1. ??The left ventricular chamber size is [...] pronounced and the estimated PASP is lower. Findings ? : Left Ventricle: ? The left ventricular chamber size is normal. ?Left ventricular wall thickness is normal. ?There is no evidence of LVOT obstruction. ?The visually estimated left ventricular ejection fraction is 55%. ?There are no left ventricular segmental wall motion abnormalities. ?Doppler assessment is consistent with normal left sided filling pressure. Left Atrium: ? The left atrium is normal in size. (11ml/m2) Right Ventricle: ? The right ventricle is mildly dilated. ?Right ventricular global systolic function is mildly reduced. ?No pulmonary hypertension is noted. ?The estimated pulmonary artery systolic pressure is 32 mmHg. ?The estimated right atrial pressure is 3 mmHg. Right Atrium: ? The right atrium appears normal. Aortic Valve: ? The aortic valve is tricuspid. ?The aortic valve leaflets are mildly thickened. ?Systolic excursion of the aortic valve is normal. ?There is aortic annular calcification. ?There is no evidence of aortic valve stenosis. ?There is no evidence of aortic regurgitation. Mitral Valve: ? The mitral valve appears normal in structure and function. ?There is trace mitral regurgitation present. Tricuspid Valve: ? The tricuspid valve appears normal in structure and function. ?There is trace tricuspid regurgitation present. Pulmonic Valve: ? The pulmonic valve is not well visualized. ?The pulmonic valve is probably normal. Pericardium: ? There is no pericardial effusion. Venous: ? The inferior vena cava appears normal in size. ?There is a greater than 50% respiratory change in the inferior vena cava dimension. Misc: ? There is no hemodynamically significant valve disease. ?See remainder of report for additional findings. ?Two-dimensional echo, spectral Doppler and color Doppler performed. ?Definity contrast (one 1.5 ml vial)was used to enhance endocardial definition. Excess contrast was discarded. Chambers 2D ?Value ?Units (Range) ? IVSd (2D) ? 0.8 ?cm ? LVPWd (2D) ?0.9 ?cm ? IVS:LVPW ratio (2D) 0.9 ?ratio ? RWT (2D) ?0.3 ?ratio ? RWT PW (2D) ? 0.4 ?ratio ? LVIDd (2D) ?5.2 ?cm ? LVIDs (2D) ?3.2 ?cm ? LVIDd (2D) index ?2.4 ?cm/m2 ? LVIDs (2D) index ?1.5 ?cm/m2 ? LV FS (2D) ?39 ? % ? EF Teichholz (2D) ?? 69 ? % ? Volumes/Mass ?Value ?Units (Range) ? LA Area 4 CH ?11.6 ? cm2 (<21) ? RA AREA 4CH ? 14 ? cm2 ? LA ESV BP (MOD) inde11 ? ml/m2 ? LV ESV SP 4CH (MOD) 39.9 ? ml ? LV ESV SP 2CH (MOD) 50.6 ? ml ? LV EDV BP ? 132 ?ml ? LV ESV BP ? 46 ? ml ? LV EDV BP index ? 61.4 ? ml/m2 ? LV ESV BP index ? 21.4 ? ml/m2 ? BP EF (MOD) ? 65 ? % ? LV mass (2D) ?165.2 ?g ? LV mass (2D) index ??76.8 ? g/m2 ? Diastolic/Systolic Function ?Value ?Units (Range) ? MV E-wave Vmax ?0.6 ?m/sec ? MV deceleration [id number] ?msec ? MV A-wave Vmax ?0.5 ?m/sec ? MV E:A ratio ?1.1 ?ratio ? LV E:e' septal ratio11.7 ? ratio ? LV E:e' lateral rati6.3 ?ratio ? Tricuspid Valve ?Value ?Units (Range) ? TAPSE ? 3.1 ?cm ? RV lateral s' Vmax ??0.1 ?m/sec ? TR Vmax ? 2.7 ?m/sec ? TR peak gradient ?29.2 ? mmHg ? RAP ? 3 ?mmHg ? RVSP ?32 ? mmHg ? Wall Motion: Segment Name ?Rest ? Base-Anteroseptal ?? Normal ? Base-Anterior ? Normal ? Base-Anterolateral ??Normal ? Base-Posterolateral Normal ? Base-Inferior ? Normal ? Base-Inferoseptal ?? Normal ? Mid-Anteroseptal ?Normal ? Mid-Anterior ?Normal ? Mid-Anterolateral ?? Normal ? Mid-Posterolateral ??Normal ? Mid-Inferior ?Normal ? Mid-Inferoseptal ?Normal ? [facility]-Septal ? Normal ? [facility]-Anterior ? Normal ? [facility]-Lateral ?Normal ? [facility]-Inferior ? Normal ? [facility]-Tip ?Normal ? This report has been electronically signed by: Doe Yip MD ? 07/15/2019 10:37:13 Images reviewed and interpretation verified [facility] Cardiac Ultrasound Laboratory Procedure Note Doe Yip MD - 07/15/2019 Procedure: Transthoracic Echocardiogram Patient: SAWYER WHITAKER(Age): 1955(64y) Med Rec#: [id number] Sex: M Site Loc: Ht / Wt: 180(cm)/95.26(k Pt. Loc: Echo Lab BSA: 2.15 Study Date: 07/15/2019 Pt. Type: Inpatient Tape: [facility] Reading: Doe Yip ([id number]) Hiv Cts Specialist: Fantasma Eaton MS, RUST Diagnosis: *Other pulmonary embolism with acute cor pulmonale (I26.09) BP: 127/85 SUMMARY: 1. The left ventricular chamber size is normal. Left ventricular wall thickness is normal. The visually estimated left ventricular ejection fraction is 55%. There are no left ventricular segmental wall motion abnormalities. 2. The right ventricle is mildly dilated. Right ventricular global systolic function is mildly reduced. The estimated pulmonary artery systolic pressure is 32 mmHg. 3. There is no hemodynamically significant valve disease. 4. See remainder of report for additional findings. Compared to the TTE performed 06/24/19, RV enlargement and dysfunction appear less pronounced and the estimated PASP is lower. Findings : Left Ventricle: The left ventricular chamber size is normal. Left ventricular wall thickness is normal. There is no evidence of LVOT obstruction. The visually estimated left ventricular ejection fraction is 55%. There are no left ventricular segmental wall motion abnormalities. Doppler assessment is consistent with normal left sided filling pressure. Left Atrium: The left atrium is normal in size. (11ml/m2) Right Ventricle: The right ventricle is mildly dilated. Right ventricular global systolic function is mildly reduced. No pulmonary hypertension is noted. The estimated pulmonary artery systolic pressure is 32 mmHg. The estimated right atrial pressure is 3 mmHg. Right Atrium: The right atrium appears normal. Aortic Valve: The aortic valve is tricuspid. The aortic valve leaflets are mildly thickened. Systolic excursion of the aortic valve is normal. There is aortic annular calcification. There is no evidence of aortic valve stenosis. There is no evidence of aortic regurgitation. Mitral Valve: The mitral valve appears normal in structure and function. There is trace mitral regurgitation present. Tricuspid Valve: The tricuspid valve appears normal in structure and function. There is trace tricuspid regurgitation present. Pulmonic Valve: The pulmonic valve is not well visualized. The pulmonic valve is probably normal. Pericardium: There is no pericardial effusion. Venous: The inferior vena cava appears normal in size. There is a greater than 50% respiratory change in the inferior vena cava dimension. Misc: There is no hemodynamically significant valve disease. See remainder of report for additional findings. Two-dimensional echo, spectral Doppler and color Doppler performed. Definity contrast (one 1.5 ml vial)was used to enhance endocardial definition. Excess contrast was discarded. Chambers 2D Value Units (Range) IVSd (2D) 0.8 cm LVPWd (2D) 0.9 cm IVS:LVPW ratio (2D) 0.9 ratio RWT (2D) 0.3 ratio RWT PW (2D) 0.4 ratio LVIDd (2D) 5.2 cm LVIDs (2D) 3.2 cm LVIDd (2D) index 2.4 cm/m2 LVIDs (2D) index 1.5 cm/m2 LV FS (2D) 39 % EF Teichholz (2D) 69 % Volumes/Mass Value Units (Range) LA Area 4 CH 11.6 cm2 (<21) RA AREA 4CH 14 cm2 LA ESV BP (MOD) inde11 ml/m2 LV ESV SP 4CH (MOD) 39.9 ml LV ESV SP 2CH (MOD) 50.6 ml LV EDV BP 132 ml LV ESV BP 46 ml LV EDV BP index 61.4 ml/m2 LV ESV BP index 21.4 ml/m2 BP EF (MOD) 65 % LV mass (2D) 165.2 g LV mass (2D) index 76.8 g/m2 Diastolic/Systolic Function Value Units (Range) MV E-wave Vmax 0.6 m/sec MV deceleration [id number] msec MV A-wave Vmax 0.5 m/sec MV E:A ratio 1.1 ratio LV E:e' septal ratio11.7 ratio LV E:e' lateral rati6.3 ratio Tricuspid Valve Value Units (Range) TAPSE 3.1 cm RV lateral s' Vmax 0.1 m/sec TR Vmax 2.7 m/sec TR peak gradient 29.2 mmHg RAP 3 mmHg RVSP 32 mmHg Wall Motion: Segment Name Rest Base-Anteroseptal Normal Base-Anterior Normal Base-Anterolateral Normal Base-Posterolateral Normal Base-Inferior Normal Base-Inferoseptal Normal Mid-Anteroseptal Normal Mid-Anterior Normal Mid-Anterolateral Normal Mid-Posterolateral Normal Mid-Inferior Normal Mid-Inferoseptal Normal [facility]-Septal Normal [facility]-Anterior Normal [facility]-Lateral Normal [facility]-Inferior Normal [facility]-Tip Normal This report has been electronically signed by: Doe Yip MD 07/15/2019 10:37:13 Images reviewed and interpretation verified [facility] Cardiac Ultrasound Laboratory Scott Dixon MD ECHO ORDERABLES * Blue Tube HOLD (06/25/2019 4:00 AM EDT) Pathologist [facility] Blue Hold Sample in lab. [facility] Blood specimen (specimen) Venous Draw / Unknown 06/25/2019 4:00 AM EDT 06/25/2019 4:16 AM EDT Lani Caldwell MD HEMATOLOGY ORDERABLE S [facility] [place] [address] * (ABNORMAL) Differential, Automated (06/25/2019 4:00 AM EDT) Pathologist [facility] Neutrophils % 66.8 % [facility] Neutr Abs (ANC) 7.55(H) 1.70 - 6.10 x10(3)/mc L [facility] Lymphocytes % 21.9 % [facility] Lymphocytes Abs 2.5 0.9 - 3.2 x10(3)/mc L [facility] Monocytes % 9.1 % [facility] Monocyte Abs 1.0(H) 0.3 - 0.9 x10(3)/mc L [facility] Eosinophils % 1.1 % [facility] Eosinophils Abs 0.1 0.0 - 0.4 x10(3)/mc L [facility] Basophils % 0.5 % [facility] Basophils Abs 0.1 0.0 - 0.1 x10(3)/ L [facility] Immature Gran % 0.60 % [facility] Comment: Immature granulocytes(IG's)percentage and absolute count will include metamyelocytes, myelocytes, and promyelocytes. Blood smears from CBCs yielding IG's will be scanned manually for concordance. If this scan disagrees with the automated IG or if promyelocytes are noted, a manual differential will be performed. Nohemi Gran Abs 0.07(H) 0.00 - 0.04 x10(3)/ L [facility] Blood specimen (specimen) 06/25/2019 4:00 AM EDT 06/25/2019 4:15 AM EDT Narrative Resulting Agency Comment Spec In Lab Lani Caldwell MD HEMATOLOGY ORDERABLE S Performing Organization Address City/State/[facility] Co de Phone Number [facility] [place] [address] * (ABNORMAL) Hemogram (06/25/2019 4:00 AM EDT) WBC 11.3(H) 4.0 - 9.5 x10(3)/[facility] RBC 4.27(L) 4.58 - 5.54 x10(6)/[facility] Hemoglobin 12.3(L) 13.7 - 16.5 gm/dL [facility] Hematocrit 38.6(L) 40.5 - 48.5 % [facility] MCV 90.4 82.9 - 93.1 fL [facility] MCH 28.8 27.5 - 32.1 pg [facility] MCHC 31.9(L) 32.0 - 35.7 gm/dL [facility] Platelets 255 145 - 357 x10(3)/[facility] RDWSD 42.5 36.0 - 45.0 fL [facility] RDWCV 12.9 11.4 - 13.8 % [facility] MPV 8.8 7.6 - 12.9 fL [facility] nRBC % Auto 0.0 % [facility] nRBC Abs Auto 0.000 0.000 - 0.000 x10(3)/mcL [facility] Blood specimen (specimen) 06/25/2019 4:00 AM EDT 06/25/2019 4:15 AM EDT Narrative Resulting Agency Comment Spec In Lab Lani Caldwell MD HEMATOLOGY ORDERABLE S Performing Organization Address [facility] Co de Phone Number [facility] [place] [address] * Magnesium (06/25/2019 4:00 AM EDT) Magnesium 0.94 0.69 - 1.07 mmol/L [facility] Blood specimen (specimen) 06/25/2019 4:00 AM EDT 06/25/2019 4:15 AM EDT Narrative Resulting Agency Comment Spec In Lab Scott Dixon MD CHEMISTRY ORDERABLES Performing Organization Address [facility] de Phone Number [facility] [place] [address] * (ABNORMAL) BMP w/fasting Glucose (06/25/2019 4:00 AM EDT) Glucose Fasting 111(H) 65 - 99 mg/dL [facility] Comment: ?Fasting* Glucose Interpretive Criteria Normal ?65-99 mg/dL Impaired Fasting glucose ?100-125 mg/dL Consistent with Diabetes Mellitus ? >or= 126 mg/dL *Fasting is defined as no caloric intake for at least 8 hours In the absence of unequivocal hyperglycemia a plasma glucose value of >or= 126 mg/dL should be repeated on a subsequent day. Diagnosis and Classification of Diabetes Mellitus, Position Statement from the [place] [employer]. ??Diabetes Care, Volume 33, Supplement 1, Oct 2009 BUN 23(H) 10 - 20 mg/dL [facility] Creatinine 1.10 0.80 - 1.50 mg/dL [facility] Sodium 138 135 - 145 mmol/L [facility] Potassium 4.7 3.5 - 5.0 mmol/L [facility] Comment: Please note: ??Patients with WBC >100,000 may have falsely elevated Potassium levels. ??For accurate Potassium quantification in these patients send serum separator tube (gold top) for subsequent determinations. ??Contact the Clinical Chemistry Laboratory if there are any questions. Chloride 103 98 - 107 mmol/L [facility] CO2 24 22 - 31 mmol/L [facility] Anion Gap 11 5 - 15 mmol/L [facility] Calcium 8.6 8.5 - 10.5 mg/dL [facility] Estimated GFR 70 >=60 mL/min/1. 73 m?? [facility] Comment: The eGFR was calculated using the CKD-EPI equation. As with all creatinine based estimates of kidney function, eGFR values calculated with the CKD-EPI equation are not accurate in patients with acute kidney failure, extremes of body mass or the acutely ill. [email or web address] eGFR 81 >=60 mL/min/1. 73 m?? [facility] Comment: The eGFR was calculated using the CKD-EPI equation. As with all creatinine based estimates of kidney function, eGFR values calculated with the CKD-EPI equation are not accurate in patients with acute kidney failure, extremes of body mass or the acutely ill. [email or web address] Blood specimen (specimen) 06/25/2019 4:00 AM EDT 06/25/2019 4:15 AM EDT Narrative Resulting Agency Comment Spec In Lab Scott Dixon MD CHEMISTRY ORDERABLES [facility] [place] [address] * Troponin (06/25/2019 4:00 AM EDT) Pathologist [facility] Troponin-T <0.01 0.00 - 0.00 ng/mL [facility] Comment: The 99th percentile for Troponin T is less than 0.01 ng/mL, any detectable cTnT concentration using this assay should be considered elevated. According to the third universal definition of myocardial infarction the following criteria with a clinical presentation consistent with acute myocardial ischemia meets the diagnosis for a myocardial infarction ([place]). Detection of a rise and/or fall of cTnT, with at least one value greater than the 99th percentile (> or = 0.01) and with at least one of the following ?? Symptoms of ischemia ?? New or presumed new significant JH-pfcybrm-H wave (ST-T) changes or new left bundle [...] additional sample may be indicated. Reference: Third [place] [facility] Definition of Myocardial Infarction. Journal of the [place] [employer] 2012;60:1581-98 Blood specimen (specimen) 06/25/2019 4:00 AM EDT 06/25/2019 4:15 AM EDT Narrative Resulting Agency Comment Spec In Lab Scott Dixon MD CHEMISTRY ORDERABLES [facility] [place] [address] * Heparin (unfractionated) Level (06/24/2019 2:35 PM EDT) Pathologist [facility] Heparin UFH Level 0.14 IU/mL [facility] Comment: Guidelines for therapeutic unfractionated heparin levels are summarized below. Heparin (Anti-Xa) levels should be determined in a plasma sample that has been drawn 6 hours after a dose change i.e., steady-state has been reached. DRUG ?Dosing Schedule ? Target Peak Steady-State ?Heparin (Anti-Xa) Levels (Units/mL) Unfractionated ?Continuous infusion ?0.3-0.7 Heparin ?0.3-0.6 for some neurology indications Blood specimen (specimen) 06/24/2019 2:35 PM EDT 06/24/2019 2:57 PM EDT Narrative Resulting Agency Comment Spec In Lab Scott Dixon MD HEMATOLOGY ORDERABLE S Performing Organization Address City/State/[facility] Co de Phone Number [facility] [place] [address] * Troponin (06/24/2019 2:35 PM EDT) Troponin-T <0.01 0.00 - 0.00 ng/mL [facility] Comment: The 99th percentile for Troponin T is less than 0.01 ng/mL, any detectable cTnT concentration using this assay should be considered elevated. According to the third universal definition of myocardial infarction the following criteria with a clinical presentation consistent with acute myocardial ischemia meets the diagnosis for a myocardial infarction ([place]). Detection of a rise and/or fall of cTnT, with at least one value greater than the 99th percentile (> or = 0.01) and with at least one of the following ?? Symptoms of ischemia ?? New or presumed new significant FA-xcfevxx-U wave (ST-T) changes or new left bundle [...] additional sample may be indicated. Reference: Third [place] [facility] Definition of Myocardial Infarction. Journal of the [place] [employer] 2012;60:1581-98 Blood specimen (specimen) 06/24/2019 2:35 PM EDT 06/24/2019 2:57 PM EDT Narrative Resulting Agency Comment Spec In Lab Scott Dixon MD CHEMISTRY ORDERABLES Performing Organization Address City/State/[facility] Co de Phone Number [facility] [place] [address] * ECHO COMPLETE W CONTRAST (06/24/2019 10:58 AM EDT) EF 60 HEARTLAB SYSTEM Anatomical Region Laterality Modality Other 06/24/2019 Narrative 06/24/2019 11:24 AM EDT Procedure: ?Transthoracic Echocardiogram Patient: ?SAWYER SANDERS ?(Age): 1955(64y) Med Rec#: ? [id number] ?Sex: ?M ? Site Loc: ? Ht / Wt: ??180(cm)/93(kg) Pt. Loc: ?CCU ? BSA: ?2.13 Study Date: ?? 06/24/2019 ?Pt. Type: Inpatient Tape: ? Referring: FANTASMA LANDAVERDE Reading: Jose De Jesus Nava ([id number]) Hiv Cts Specialist: Tony Martienz RUST Hiv Cts Specialist: Tony De Oliveira ([id number]) Interpreting Fellow: Tony De Oliveira ([id number]) Diagnosis: *Other pulmonary embolism without acute cor pulmonale (I26.99) BP: ? 116/90 SUMMARY: 1. Patient with known pulmonary embolism. ??Prior [...] Please see remainder of report for additional findings. Findings ? : Study Quality: ? Technically limited Left Ventricle: ? The left ventricular chamber size is normal. ?Basal septal hypertrophy is observed. ?There is no evidence of LVOT obstruction. ?No ventricular septal defect is visualized. ?There is normal global left ventricular systolic function. ?The quantitative left ventricular ejection fraction by biplane Engel's method is 60%. ?There are no left ventricular segmental wall motion abnormalities. ?Left ventricular diastolic function is normal. ?Doppler assessment is consistent with normal left sided filling pressure. Left Atrium: ? The left atrium is normal in size. Right Ventricle: ? The right ventricle is moderately dilated. ?Right ventricular global systolic function is moderately reduced. ?Septal motion is consistent with RV volume overload. ?The estimated pulmonary artery systolic pressure is 48.2 mmHg. ?The estimated right atrial pressure is 8 mmHg. Right Atrium: ? The right atrium appears normal. Aortic Valve: ? The aortic valve is tricuspid. ?The aortic valve leaflets are mildly thickened. ?Systolic excursion of the aortic valve is normal. ?There is aortic annular calcification. ?There is no evidence of aortic valve stenosis. ?There is no evidence of aortic regurgitation. Mitral Valve: ? The mitral valve appears normal in structure and function. ?There is trace mitral regurgitation present. Tricuspid Valve: ? The tricuspid valve appears normal in structure and function. ?There is trace tricuspid regurgitation present. Pulmonic Valve: ? The pulmonic valve is not well visualized. ?The pulmonic valve is probably normal. Pericardium: ? There is no pericardial effusion. ?A pericardial fat pad is visualized. Aorta: ? There is moderate dilatation of the aortic root. ?There is mild dilatation of the ascending aorta. Pulmonary Artery: ? The main pulmonary artery is not well visualized. Venous: ? The inferior vena cava appears normal in size. ?There is less than 50% respiratory change in the inferior vena cava dimension consistent with elevated right atrial pressure. Misc: ? Two-dimensional echo, spectral Doppler and color Doppler performed. ?Optison contrast (one 3 ml vial) was used to enhance endocardial definition. Excess contrast was discarded. Chambers 2D ?Value ?Units (Range) ? IVSd (2D) ? 1.7 ?cm ? LVPWd (2D) ?1.2 ?cm ? IVS:LVPW ratio (2D) 1.5 ?ratio ? RWT (2D) ?0.7 ?ratio ? RWT PW (2D) ? 0.6 ?ratio ? LVIDd (2D) ?4.1 ?cm ? LVIDs (2D) ?3.4 ?cm ? LVIDd (2D) index ?1.9 ?cm/m2 ? LVIDs (2D) index ?1.6 ?cm/m2 ? LV FS (2D) ?17 ? % ? EF Teichholz (2D) ?? 35 ? % ? Ao root diameter (2D4.4 ?cm (2.1 - 3.6) ? Ascending Ao ?3.7 ?cm (2 - 3.5) ? Volumes/Mass ?Value ?Units (Range) ? LA Area 4 CH ?11 ? cm2 (<21) ? RA AREA 4CH ? 14 ? cm2 ? LA ESV BP (MOD) inde15.9 ? ml/m2 ? LV ESV SP 4CH (MOD) 35.5 ? ml ? LV ESV SP 2CH (MOD) 37.8 ? ml ? LV EDV BP ? 94.6 ? ml ? LV ESV BP ? 37.5 ? ml ? LV EDV BP index ? 44.4 ? ml/m2 ? LV ESV BP index ? 17.6 ? ml/m2 ? BP EF (MOD) ? 60 ? % ? LV mass (2D) ?230.7 ?g ? LV mass (2D) index ??108.3 ?g/m2 ? Diastolic/Systolic Function ?Value ?Units (Range) ? MV E-wave Vmax ?0.5 ?m/sec ? MV deceleration [id number] ?msec ? MV A-wave Vmax ?0.5 ?m/sec ? MV E:A ratio ?0.9 ?ratio ? LV septal e' Vmax ?? 0 ?m/sec ? LV lateral e' Vmax ??0.1 ?m/sec ? LV average e' Vmax ??0.1 ?m/sec ? LV E:e' septal ratio12.1 ? ratio ? LV E:e' lateral rati4.8 ?ratio ? LV average E:e' rati6.9 ?ratio ? Aortic Valve ?Value ?Units (Range) ? LVOT diameter ? 2 ?cm ? Tricuspid Valve ?Value ?Units (Range) ? TR Vmax ? 3.2 ?m/sec ? TR peak gradient ?40.2 ? mmHg ? RAP ? 8 ?mmHg ? RVSP ?48.2 ? mmHg ? Wall Motion: Segment Name ?Rest ? Base-Anteroseptal ?? Normal ? Base-Anterior ? Normal ? Base-Anterolateral ??Normal ? Base-Posterolateral Normal ? Base-Inferior ? Normal ? Base-Inferoseptal ?? Normal ? Mid-Anteroseptal ?Normal ? Mid-Anterior ?Normal ? Mid-Anterolateral ?? Normal ? Mid-Posterolateral ??Normal ? Mid-Inferior ?Normal ? Mid-Inferoseptal ?Normal ? [facility]-Septal ? Normal ? [facility]-Anterior ? Normal ? [facility]-Lateral ?Normal ? [facility]-Inferior ? Normal ? [facility]-Tip ?Normal ? This report has been electronically signed by: Jose De Jesus Nava MD ? 06/24/2019 11:24:13 Images reviewed and interpretation verified [facility] Cardiac Ultrasound Laboratory Procedure Note Jose De Jesus Nava MD - 06/24/2019 Procedure: Transthoracic Echocardiogram Patient: SAWYER WHITAKER(Age): 1955(64y) Med Rec#: [id number] Sex: M Site Loc: Ht / Wt: 180(cm)/93(kg) Pt. Loc: CCU BSA: 2.13 Study Date: 06/24/2019 Pt. Type: Inpatient Tape: Referring: FANTASMA LANDAVERDE Reading: Jose De Jesus Nava ([id number]) Hiv Cts Specialist: Tony Martinez, RUST Hiv Cts Specialist: Tony De Oliveira ([id number]) Interpreting Fellow: Tony De Oliveira ([id number]) Diagnosis: *Other pulmonary embolism without acute cor pulmonale (I26.99) BP: 116/90 SUMMARY: 1. Patient with known pulmonary embolism. Prior study last night by the on-call fellow. [...] Please see remainder of report for additional findings. Findings : Study Quality: Technically limited Left Ventricle: The left ventricular chamber size is normal. Basal septal hypertrophy is observed. There is no evidence of LVOT obstruction. No ventricular septal defect is visualized. There is normal global left ventricular systolic function. The quantitative left ventricular ejection fraction by biplane Engel's method is 60%. There are no left ventricular segmental wall motion abnormalities. Left ventricular diastolic function is normal. Doppler assessment is consistent with normal left sided filling pressure. Left Atrium: The left atrium is normal in size. Right Ventricle: The right ventricle is moderately dilated. Right ventricular global systolic function is moderately reduced. Septal motion is consistent with RV volume overload. The estimated pulmonary artery systolic pressure is 48.2 mmHg. The estimated right atrial pressure is 8 mmHg. Right Atrium: The right atrium appears normal. Aortic Valve: The aortic valve is tricuspid. The aortic valve leaflets are mildly thickened. Systolic excursion of the aortic valve is normal. There is aortic annular calcification. There is no evidence of aortic valve stenosis. There is no evidence of aortic regurgitation. Mitral Valve: The mitral valve appears normal in structure and function. There is trace mitral regurgitation present. Tricuspid Valve: The tricuspid valve appears normal in structure and function. There is trace tricuspid regurgitation present. Pulmonic Valve: The pulmonic valve is not well visualized. The pulmonic valve is probably normal. Pericardium: There is no pericardial effusion. A pericardial fat pad is visualized. Aorta: There is moderate dilatation of the aortic root. There is mild dilatation of the ascending aorta. Pulmonary Artery: The main pulmonary artery is not well visualized. Venous: The inferior vena cava appears normal in size. There is less than 50% respiratory change in the inferior vena cava dimension consistent with elevated right atrial pressure. Misc: Two-dimensional echo, spectral Doppler and color Doppler performed. Optison contrast (one 3 ml vial) was used to enhance endocardial definition. Excess contrast was discarded. Chambers 2D Value Units (Range) IVSd (2D) 1.7 cm LVPWd (2D) 1.2 cm IVS:LVPW ratio (2D) 1.5 ratio RWT (2D) 0.7 ratio RWT PW (2D) 0.6 ratio LVIDd (2D) 4.1 cm LVIDs (2D) 3.4 cm LVIDd (2D) index 1.9 cm/m2 LVIDs (2D) index 1.6 cm/m2 LV FS (2D) 17 % EF Teichholz (2D) 35 % Ao root diameter (2D4.4 cm (2.1 - 3.6) Ascending Ao 3.7 cm (2 - 3.5) Volumes/Mass Value Units (Range) LA Area 4 CH 11 cm2 (<21) RA AREA 4CH 14 cm2 LA ESV BP (MOD) inde15.9 ml/m2 LV ESV SP 4CH (MOD) 35.5 ml LV ESV SP 2CH (MOD) 37.8 ml LV EDV BP 94.6 ml LV ESV BP 37.5 ml LV EDV BP index 44.4 ml/m2 LV ESV BP index 17.6 ml/m2 BP EF (MOD) 60 % LV mass (2D) 230.7 g LV mass (2D) index 108.3 g/m2 Diastolic/Systolic Function Value Units (Range) MV E-wave Vmax 0.5 m/sec MV deceleration [id number] msec MV A-wave Vmax 0.5 m/sec MV E:A ratio 0.9 ratio LV septal e' Vmax 0 m/sec LV lateral e' Vmax 0.1 m/sec LV average e' Vmax 0.1 m/sec LV E:e' septal ratio12.1 ratio LV E:e' lateral rati4.8 ratio LV average E:e' rati6.9 ratio Aortic Valve Value Units (Range) LVOT diameter 2 cm Tricuspid Valve Value Units (Range) TR Vmax 3.2 m/sec TR peak gradient 40.2 mmHg RAP 8 mmHg RVSP 48.2 mmHg Wall Motion: Segment Name Rest Base-Anteroseptal Normal Base-Anterior Normal Base-Anterolateral Normal Base-Posterolateral Normal Base-Inferior Normal Base-Inferoseptal Normal Mid-Anteroseptal Normal Mid-Anterior Normal Mid-Anterolateral Normal Mid-Posterolateral Normal Mid-Inferior Normal Mid-Inferoseptal Normal [facility]-Septal Normal [facility]-Anterior Normal [facility]-Lateral Normal [facility]-Inferior Normal [facility]-Tip Normal This report has been electronically signed by: Jose De Jesus Nava MD 06/24/2019 11:24:13 Images reviewed and interpretation verified [facility] Cardiac Ultrasound Laboratory Scott Dixon MD ECHO ORDERABLES * Duplex Study for DVT, Bilat legs (06/24/2019 7:04 AM EDT) VB Text Report Department: Vascular Surgery Lab Patient: [id number] (MARILYN SAVAGE) CPT: 81007 ICD10: I26.02;I82.411 Referring Physician: SCOTT DIXON ?? Phone: Indications: ?? PE, ? lower extremity DVT. ??History RIGHT lower extremity DVT (popliteal vein) per patient report. ICD10 Diagnosis Code: I26.02 Findings: RIGHT: There is very focal non-occlusive thrombus in the femoral vein in the very distal thigh; suspect acute DVT based on B-mode imaging. There is also a very small amount of echogenic, chronic-appearing non-occlusive thrombus in the mid to below knee popliteal vein. Otherwise, patent common femoral vein and popliteal vein with spontaneous, respirophasic Doppler waveforms that respond normally to augmentation maneuvers. The common femoral vein, saphenofemoral junction, and femoral vein proximal through mid thigh are fully compressible. Posterior tibial and peroneal veins are widely patent but were not adequately visualized to exclude small non-occlusive thrombus in the upper calf. LEFT: Patent common femoral vein and popliteal vein with spontaneous, respirophasic Doppler waveforms that respond normally to augmentation maneuvers. The common femoral vein, saphenofemoral junction, femoral vein through the thigh and popliteal vein are fully compressible. Patent posterior tibial and peroneal veins with no evidence of thrombus. Interpretation: RIGHT: Acute (femoral vein very distal thigh) and chronic (popliteal) non-occlusive DVT. Cannot entirely exclude additional small, focal non-occlusive DVT in the upper calf due to suboptimal visualization. LEFT: ??No evidence of lower extremity deep venous thrombosis. Comparison: ?? No previous study in our vascular lab database for comparison. Comment: ??Dr. Lani Caldwell was notified of the preliminary findings. Electronically Signed by: VESNA RENTERIA on 2019-06-25 10:30:44 AM [facility] VB Text Report End of Report [facility] 06/24/2019 7:04 AM EDT Scott Dixon MD VASCULAR ORDERABLES [facility] * (ABNORMAL) Differential, Automated (06/24/2019 6:05 AM EDT) Neutrophils % 84.0 % [facility] Neutr Abs (ANC) 6.62(H) 1.70 - 6.10 x10(3)/[facility] Lymphocytes % 12.2 % [facility] Lymphocytes Abs 1.0 0.9 - 3.2 x10(3)/[facility] Monocytes % 3.3 % [facility] Monocyte Abs 0.3 0.3 - 0.9 x10(3)/[facility] Eosinophils % 0.1 % [facility] Eosinophils Abs 0.0 0.0 - 0.4 x10(3)/[facility] Basophils % 0.0 % [facility] Basophils Abs 0.0 0.0 - 0.1 x10(3)/[facility] Immature Gran % 0.40 % [facility] Comment: Immature granulocytes(IG's)percentage and absolute count will include metamyelocytes, myelocytes, and promyelocytes. Blood smears from CBCs yielding IG's will be scanned manually for concordance. If this scan disagrees with the automated IG or if promyelocytes are noted, a manual differential will be performed. Nohemi Gran Abs 0.03 0.00 - 0.04 x10(3)/[facility] Blood specimen (specimen) 06/24/2019 6:05 AM EDT 06/24/2019 6:26 AM EDT Narrative Resulting Agency Comment Spec In Lab London Linares MD HEMATOLOGY ORDERABLE S Performing Organization Address City/[facility]/ZIP Co de Phone Number [facility] [place] [address] * (ABNORMAL) Hemogram (06/24/2019 6:05 AM EDT) Pathologist [facility] WBC 7.9 4.0 - 9.5 x10(3)/[facility] LABORATORY RBC 4.60 4.58 - 5.54 x10(6)/[facility] Hemoglobin 13.1(L) 13.7 - 16.5 gm/dL [facility] Hematocrit 39.6(L) 40.5 - 48.5 % [facility] MCV 86.1 82.9 - 93.1 [facility] MCH 28.5 27.5 - 32.1 pg [facility] MCHC 33.1 32.0 - 35.7 gm/dL [facility] Platelets 262 145 - 357 x10(3)/[facility] LAB[facility] RDWSD 39.8 36.0 - 45.0 [facility] RDWCV 12.7 11.4 - 13.8 % [facility] MPV 8.9 7.6 - 12.9 [facility] nRBC % Auto 0.0 % [facility] nRBC Abs Auto 0.000 0.000 - 0.000 x10(3)/[facility] Blood specimen (specimen) 06/24/2019 6:05 AM EDT 06/24/2019 6:26 AM EDT Narrative Resulting Agency Comment Spec In Lab London Linares MD HEMATOLOGY ORDERABLE S [facility] [place] [address] * Heparin (unfractionated) Level (06/24/2019 6:05 AM EDT) Pathologist [facility] Heparin UFH Level 0.71 IU/mL [facility] Comment: Guidelines for therapeutic unfractionated heparin levels are summarized below. Heparin (Anti-Xa) levels should be determined in a plasma sample that has been drawn 6 hours after a dose change i.e., steady-state has been reached. DRUG ?Dosing Schedule ? Target Peak Steady-State ?Heparin (Anti-Xa) Levels (Units/mL) Unfractionated ?Continuous infusion ?0.3-0.7 Heparin ?0.3-0.6 for some neurology indications Blood specimen (specimen) 06/24/2019 6:05 AM EDT 06/24/2019 6:26 AM EDT Narrative Resulting Agency Comment Spec In Lab Scott Dixon MD HEMATOLOGY ORDERABLE S Performing Organization Address [facility] de Phone Number [facility] [place] [address] * Magnesium (06/24/2019 6:05 AM EDT) Magnesium 0.94 0.69 - 1.07 mmol/L [facility] Blood specimen (specimen) 06/24/2019 6:05 AM EDT 06/24/2019 6:26 AM EDT Narrative Resulting Agency Comment Spec In Lab Scott Dixon MD CHEMISTRY ORDERABLES Performing Organization Address [facility] de Phone Number [facility] [place] [address] * (ABNORMAL) BMP w/fasting Glucose (06/24/2019 6:05 AM EDT) Glucose Fasting 154(H) 65 - 99 mg/dL [facility] Comment: ?Fasting* Glucose Interpretive Criteria Normal ?65-99 mg/dL Impaired Fasting glucose ?100-125 mg/dL Consistent with Diabetes Mellitus ? >or= 126 mg/dL *Fasting is defined as no caloric intake for at least 8 hours In the absence of unequivocal hyperglycemia a plasma glucose value of >or= 126 mg/dL should be repeated on a subsequent day. Diagnosis and Classification of Diabetes Mellitus, Position Statement from the [place] [employer]. ??Diabetes Care, Volume 33, Supplement 1, Oct 2009 BUN 17 10 - 20 mg/dL [facility] Creatinine 1.03 0.80 - 1.50 mg/dL [facility] Sodium 138 135 - 145 mmol/L [facility] Potassium 4.6 3.5 - 5.0 mmol/L [facility] Comment: Please note: ??Patients with WBC >100,000 may have falsely elevated Potassium levels. ??For accurate Potassium quantification in these patients send serum separator tube (gold top) for subsequent determinations. ??Contact the Clinical Chemistry Laboratory if there are any questions. Chloride 102 98 - 107 mmol/L [facility] CO2 23 22 - 31 mmol/L [facility] Anion Gap 13 5 - 15 mmol/L [facility] Calcium 9.3 8.5 - 10.5 mg/dL [facility] Estimated GFR 75 >=60 mL/min/1. 73 m?? [facility] Comment: The eGFR was calculated using the CKD-EPI equation. As with all creatinine based estimates of kidney function, eGFR values calculated with the CKD-EPI equation are not accurate in patients with acute kidney failure, extremes of body mass or the acutely ill. [email or web address] eGFR 87 >=60 mL/min/1. 73 m?? [facility] Comment: The eGFR was calculated using the CKD-EPI equation. As with all creatinine based estimates of kidney function, eGFR values calculated with the CKD-EPI equation are not accurate in patients with acute kidney failure, extremes of body mass or the acutely ill. [email or web address] Blood specimen (specimen) 06/24/2019 6:05 AM EDT 06/24/2019 6:26 AM EDT Narrative Resulting Agency Comment Spec In Lab Scott Dixon MD CHEMISTRY ORDERABLES [facility] [place] [address] * Lipid Panel (Reflex Direct LDL) (06/24/2019 6:05 AM EDT) Chol, Total 173 mg/dL [facility] Comment: Lower Risk: <200 mg/dL Average Risk: 200-239 mg/dL Higher Risk: >sr=322 mg/dL Triglycerides 56 mg/dL [facility] Comment: Average Risk/Lower Risk: <150 mg/dL Borderline High Risk: 150-199 mg/dL High Risk: 200-499 mg/dL Very High Risk: >lo=162 mg/dL HDL 40 mg/dL [facility] Comment: Males: ?? Higher Risk: <40 mg/dL Females: ?? HIgher Risk: <50 mg/dL LDL Cholesterol 122 mg/dL [facility] Comment: Lowest Risk: <100 mg/dL Lower Risk: 100-129 mg/dL Borderline High Risk: 130-159 mg/dL High Risk: 160-189 mg/dL Very High Risk: >ww=358 mg/dL Chol/HDL Ratio 4.3 ratio [facility] Lipid Interpretation See Note [facility] Comment: Lipid management should be guided by a patient? s ASCVD risk, goals and preferences. ACC/AHA Guidelines recommend high intensity statin if clinical ASCVD or LDL greater than or equal to 190 mg/dL. http://tinyurl.com/UTN-OSU-Fnuqcdnmx Adults aged 40-75 with LDL 70-189 mg/dL should have their 10 year ASCVD risk estimated with the ACC/AHA ASCVD risk estimator project manager http://tools.acc.org/CORZT-Wouo-Bmorndqnw/ Statin should be discussed if risk greater [...] Narrative Resulting Agency Comment Spec In Lab Scott Dixon MD CHEMISTRY ORDERABLES Performing Organization Address [facility] Co de Phone Number [facility] [place] [address] * EKG 12 Lead (06/23/2019 11:50 PM EDT) Ventricular rate 90 BPM MUSE SYSTEM Atrial Rate 90 BPM MUSE SYSTEM P-R Interval 146 ms MUSE SYSTEM QRS Duration 88 ms MUSE SYSTEM Q-T Interval 360 ms MUSE SYSTEM QTC Calculated (Bezet) 440 ms MUSE SYSTEM Calculated P [place] 74 degrees MUSE SYSTEM Calculated R [place] 89 degrees MUSE SYSTEM Calculated T [place] 56 degrees MUSE SYSTEM INTERPRETATION Normal sinus rhythm T wave abnormality, consider anterior ischemia Abnormal ECG No previous ECGs available Confirmed by MD SAMANIEGO ARMIN ([id number]) on 06/24/2019 9:14:56 AM MUSE SYSTEM 06/23/2019 11:5 0 PM EDT 06/24/2019 9:14 AM EDT Scott Dixon MD ECG ORDERABLES Performing Organization Address [facility] Co de Phone Number MUSE SYSTEM * (ABNORMAL) Hemoglobin A1c (06/23/2019 11:05 PM EDT) Hemoglobin A1C 5.7(H) 4.3 - 5.6 % [facility] Comment: Reference Range: 4.3 - [...] Mellitus, Diabetes Care 2013; 36: Suppl. 1, S67-21 Est Avg Gluc 118 mg/dL [facility] Comment: eAG equivalents for HbA1c [...] into estimated average glucose values. ??Diabetes Care 2008:31(8):5085-2154. Blood specimen (specimen) 06/23/2019 11:05 PM EDT 06/23/2019 11:19 PM EDT Narrative Resulting Agency Comment Spec In Lab Scott Dixon MD CHEMISTRY ORDERABLES [facility] [place] [address] * Scan, Peripheral Blood (06/23/2019 9:45 PM EDT) Plat Estimate Normal [facility] RBC Morphology Normal [facility] Blood specimen (specimen) No Charge / Unknown 06/23/2019 9:45 PM EDT 06/23/2019 10:00 PM EDT Narrative Resulting Agency Comment Spec In Lab London Linares MD HEMATOLOGY ORDERABLE S Performing Organization Address [facility] Co de Phone Number [facility] [place] [address] * (ABNORMAL) Heparin (unfractionated) Level (06/23/2019 9:45 PM EDT) Heparin UFH Level 1.36(Crit ical) IU/mL [facility] Comment: Called by: SHERWIN, Read back by: HEIDI DAS, Date/Time:06/23/19 23:47. Guidelines for therapeutic unfractionated heparin levels are summarized below. Heparin (Anti-Xa) levels should be determined in a plasma sample that has been drawn 6 hours after a dose change i.e., steady-state has been reached. DRUG ?Dosing Schedule ? Target Peak Steady-State ?Heparin (Anti-Xa) Levels (Units/mL) Unfractionated ?Continuous infusion ?0.3-0.7 Heparin ?0.3-0.6 for some neurology indications Blood specimen (specimen) No Charge / Unknown 06/23/2019 9:45 PM EDT 06/23/2019 10:00 PM EDT Narrative Resulting Agency Comment Spec In Lab London Linares MD HEMATOLOGY ORDERABLE S Performing Organization Address [facility] Co de Phone Number [facility] [place] [address] * (ABNORMAL) APTT (06/23/2019 9:45 PM EDT) PTT 157(Criti helen) 25 - 37 sec [facility] Comment: Called by: SHERWIN, Read back by: HEIDI DAS, Date/Time:06/23/19 23:47. The PTT is NOT appropriate for heparin monitoring. Use the Anti-Xa level for heparin monitoring (HEP UFH) or LMWH monitoring (HEP LMW). A PTT less than 37 seconds generally indicates adequate hemostasis. Blood specimen (specimen) No Charge / Unknown 06/23/2019 9:45 PM EDT 06/23/2019 10:00 PM EDT Narrative Resulting Agency Comment Spec In Lab London Linares MD HEMATOLOGY ORDERABLE S Performing Organization Address [facility] de Phone Number [facility] [place] [address] * (ABNORMAL) Prothrombin Time (06/23/2019 9:45 PM EDT) PT 13.8(H) 9.4 - 12.5 sec [facility] INR 1.2 [facility] Comment: An INR <2.0 indicates adequate procoagulant activity for hemostasis in most patients without underlying bleeding disorders, though the INR may not adequately reflect hemostatic capacity in patients with liver disease and synthetic impairment. The recommended target INR range for therapeutic anticoagulation is 2.0 ? 3.0 for most applications, though lower and higher ranges may be appropriate depending on clinical circumstances. Blood specimen (specimen) No Charge / Unknown 06/23/2019 9:45 PM EDT 06/23/2019 10:00 PM EDT Narrative Resulting Agency Comment Spec In Lab London Linares MD HEMATOLOGY ORDERABLE S Performing Organization Address [facility] Co de Phone Number [facility] [place] [address] * (ABNORMAL) Troponin (06/23/2019 9:45 PM EDT) Troponin-T 0.02(H) 0.00 - 0.00 ng/mL [facility] Comment: The 99th percentile for Troponin T is less than 0.01 ng/mL, any detectable cTnT concentration using this assay should be considered elevated. According to the third universal definition of myocardial infarction the following criteria with a clinical presentation consistent with acute myocardial ischemia meets the diagnosis for a myocardial infarction ([place]). Detection of a rise and/or fall of cTnT, with at least one value greater than the 99th percentile (> or = 0.01) and with at least one of the following ?? Symptoms of ischemia ?? New or presumed new significant BG-vxveicx-A wave (ST-T) changes or new left bundle [...] additional sample may be indicated. Reference: Third [place] Definition of Myocardial Infarction. Journal of the [place] [employer] 2012;60:1581-98 Blood specimen (specimen) No Charge / Unknown 06/23/2019 9:45 PM EDT 06/23/2019 10:07 PM EDT Narrative Resulting Agency Comment Spec In Lab London Linares MD CHEMISTRY ORDERABLES Performing Organization Address [facility]/ZIP Co de Phone Number [facility] [place] [address] * (ABNORMAL) pro-Brain Natriuretic Peptide (06/23/2019 9:45 PM EDT) ProBNP 2,675(H) <=125 pg/mL [facility] Blood specimen (specimen) No Charge / Unknown 06/23/2019 9:45 PM EDT 06/23/2019 10:07 PM EDT Narrative Resulting Agency Comment Spec In Lab London Linares MD CHEMISTRY ORDERABLES Performing Organization Address City/[facility]/ZIP Co de Phone Number [facility] [place] [address] * TSH (06/23/2019 9:45 PM EDT) TSH 0.85 0.27 - 4.20 mcIU/mL [facility] Blood specimen (specimen) No Charge / Unknown 06/23/2019 9:45 PM EDT 06/23/2019 10:07 PM EDT Narrative Resulting Agency Comment Spec In Lab London Linares MD CHEMISTRY ORDERABLES [facility] [place] [address] * Phosphorus (06/23/2019 9:45 PM EDT) Phosphorus 2.7 2.5 - 4.5 mg/dL [facility] Blood specimen (specimen) No Charge / Unknown 06/23/2019 9:45 PM EDT 06/23/2019 10:07 PM EDT Narrative Resulting Agency Comment Spec In Lab London Linares MD CHEMISTRY ORDERABLES Performing Organization Address City/[facility]/ZIP Co de Phone Number [facility] [place] [address] * Magnesium (06/23/2019 9:45 PM EDT) Magnesium 0.89 0.69 - 1.07 mmol/L [facility] Blood specimen (specimen) No Charge / Unknown 06/23/2019 9:45 PM EDT 06/23/2019 10:07 PM EDT Narrative Resulting Agency Comment Spec In Lab London Linares MD CHEMISTRY ORDERABLES Performing Organization Address City/[facility]/ZIP Co de Phone Number [facility] [place] [address] * Hepatic Function Panel (06/23/2019 9:45 PM EDT) Total Protein 7.8 6.1 - 8.0 gm/dL [facility] Albumin 4.1 3.2 - 5.2 gm/dL [facility] AST 20 0 - 39 unit/L [facility] ALT 20 0 - 55 unit/L [facility] Alk Phos 61 40 - 130 unit/L [facility] Total Bilirubin 0.3 0.2 - 1.3 mg/dL [facility] Bili, Direct <0.1 0.0 - 0.3 mg/dL [facility] Blood specimen (specimen) No Charge / Unknown 06/23/2019 9:45 PM EDT 06/23/2019 10:07 PM EDT Narrative Resulting Agency Comment Spec In Lab London Linares MD CHEMISTRY ORDERABLES [facility] [place] [address] * (ABNORMAL) Basic Metabolic Panel (non-fasting) (06/23/2019 9:45 PM EDT) Glucose Lvl 183 65 - 199 mg/dL [facility] Comment:Diabetes: >=200 mg/d L plus symptoms BUN 14 10 - 20 mg/dL [facility] Creatinine 1.09 0.80 - 1.50 mg/dL [facility] Sodium 136 135 - 145 mmol/L [facility] Potassium 4.7 3.5 - 5.0 mmol/L [facility] Comment: Please note: ??Patients with WBC >100,000 may have falsely elevated Potassium levels. ??For accurate Potassium quantification in these patients send serum separator tube (gold top) for subsequent determinations. ??Contact the Clinical Chemistry Laboratory if there are any questions. Chloride 99 98 - 107 mmol/L [facility] CO2 20(L) 22 - 31 mmol/L [facility] Anion Gap 17(H) 5 - 15 mmol/L [facility] Calcium 9.4 8.5 - 10.5 mg/dL [facility] Estimated GFR 70 >=60 mL/min/1. 73 m?? [facility] Comment: The eGFR was calculated using the CKD-EPI equation. As with all creatinine based estimates of kidney function, eGFR values calculated with the CKD-EPI equation are not accurate in patients with acute kidney failure, extremes of body mass or the acutely ill. [email or web address] eGFR 82 >=60 mL/min/1. 73 m?? [facility] Comment: The eGFR was calculated using the CKD-EPI equation. As with all creatinine based estimates of kidney function, eGFR values calculated with the CKD-EPI equation are not accurate in patients with acute kidney failure, extremes of body mass or the acutely ill. [email or web address] Blood specimen (specimen) No Charge / Unknown 06/23/2019 9:45 PM EDT 06/23/2019 10:07 PM EDT Narrative Resulting Agency Comment Spec In Lab London Linares MD CHEMISTRY ORDERABLES [facility] [place] [address] * (ABNORMAL) Differential, Automated (06/23/2019 9:45 PM EDT) Neutrophils % 92.3 % [facility] Neutr Abs (ANC) 8.73(H) 1.70 - 6.10 x10(3)/mc L [facility] Lymphocytes % 6.5 % [facility] Lymphocytes Abs 0.6(L) 0.9 - 3.2 x10(3)/mc L [facility] Monocytes % 0.7 % [facility] Monocyte Abs 0.1(L) 0.3 - 0.9 x10(3)/mc L [facility] Eosinophils % 0.0 % [facility] Eosinophils Abs 0.0 0.0 - 0.4 x10(3)/mc L [facility] Basophils % 0.2 % [facility] Basophils Abs 0.0 0.0 - 0.1 x10(3)/mc L [facility] Immature Gran % 0.30 % [facility] Comment: Immature granulocytes(IG's)percentage and absolute count will include metamyelocytes, myelocytes, and promyelocytes. Blood smears from CBCs yielding IG's will be scanned manually for concordance. If this scan disagrees with the automated IG or if promyelocytes are noted, a manual differential will be performed. Nohemi Gran Abs 0.03 0.00 - 0.04 x10(3)/ L [facility] Blood specimen (specimen) No Charge / Unknown 06/23/2019 9:45 PM EDT 06/23/2019 10:00 PM EDT Narrative Resulting Agency Comment Spec In Lab London Linares MD HEMATOLOGY ORDERABLE S Performing Organization Address City/State/[facility] Co de Phone Number [facility] [place] [address] * Hemogram (06/23/2019 9:45 PM EDT) WBC 9.5 4.0 - 9.5 x10(3)/[facility] RBC 4.93 4.58 - 5.54 x10(6)/[facility] Hemoglobin 14.2 13.7 - 16.5 gm/dL [facility] Hematocrit 43.3 40.5 - 48.5 % [facility] MCV 87.8 82.9 - 93.1 fL [facility] MCH 28.8 27.5 - 32.1 pg [facility] MCHC 32.8 32.0 - 35.7 gm/dL [facility] Platelets 297 145 - 357 x10(3)/[facility] RDWSD 41.0 36.0 - 45.0 fL [facility] RDWCV 12.7 11.4 - 13.8 % [facility] MPV 9.2 7.6 - 12.9 fL [facility] nRBC % Auto 0.0 % [facility] nRBC Abs Auto 0.000 0.000 - 0.000 x10(3)/mcL [facility] Blood specimen (specimen) No Charge / Unknown 06/23/2019 9:45 PM EDT 06/23/2019 10:00 PM EDT Narrative Resulting Agency Comment Spec In Lab London Linares MD HEMATOLOGY ORDERABLE S [facility] [place] [address] * Lavender Tube HOLD (06/23/2019 9:45 PM EDT) Lavender Hold Sample in lab. [facility] Blood specimen (specimen) No Charge / Unknown 06/23/2019 9:45 PM EDT 06/23/2019 10:00 PM EDT Scott Dixon MD HEMATOLOGY ORDERABLE S [facility] [place] [address] * Green Tube HOLD (06/23/2019 9:45 PM EDT) Green Hold Sample in lab. [facility] Blood specimen (specimen) No Charge / Unknown 06/23/2019 9:45 PM EDT 06/23/2019 9:59 PM EDT Scott Dixon MD CHEMISTRY ORDERABLES [facility] [place] [address] * Blue Tube HOLD (06/23/2019 9:45 PM EDT) Blue Hold Sample in lab. [facility] Blood specimen (specimen) No Charge / Unknown 06/23/2019 9:45 PM EDT 06/23/2019 10:00 PM EDT Scott Dixon MD HEMATOLOGY ORDERABLE S [facility] [place] [address] documented in this encounter Visit Diagnoses Diagnosis Type 2 myocardial infarction Acute saddle pulmonary embolism with acute cor pulmonale Acute pulmonary embolism with acute cor pulmonale, unspecified pulmonary embolism type Acute septic pulmonary embolism with acute cor pulmonale Pulmonary embolism Other pulmonary embolism and infarction Acute septic pulmonary embolism with acute cor pulmonale documented in this encounter Admitting Diagnoses Diagnosis Pulmonary embolism Other pulmonary embolism and infarction documented in this encounter Administered Medications Inactive Administered Medications - up to 3 most recent administrations Medication Order MAR Action Action Date Dose Rate Site apixaban (ELIQUIS) tablet 10 mg 10 mg, Oral, 2 TIMES DAILY, 14 doses, First dose on Sun06/24/19 at 1900, Last dose on Sun07/01/19 at 0600, Anticoagulant, Routine, Restricted anticoagulant, choose the most appropriate response: Appoved indication of DVT and/or PE Given 06/25/2019 6:01 AM EDT 10 mg Given 06/24/2019 6:54 PM EDT 10 mg aspirin chewable tablet 81 mg 81 mg, Oral, DAILY, First dose on Sun06/24/19 at 0900, Until Discontinued, Routine Given 06/25/2019 8:55 AM EDT 81 mg Given 06/24/2019 9:09 AM EDT 81 mg budesonide-formoterol (SYMBICORT) 160-4.5 mcg/actuation inhaler 2 Inhalation 2 Inhalation , Inhalation, 2 TIMES DAILY, First dose on Sun06/23/19 at 2315, Until Discontinued Given 06/25/2019 8:03 AM EDT 2 Inhalation Given 06/24/2019 8:30 PM EDT 2 Inhalation Given 06/24/2019 11:31 AM EDT 2 Inhalation calcium carbonate (Tums) chewable tablet 500-1,000 mg 500-1,000 mg, Oral, EVERY 4 HOURS PRN, Starting on Sun06/23/19 at 2303, Until Sun06/25/19 at 1617, Heartburn, Give 500 mg (1 tablet) for mild to moderate heartburn. Give 1,000 mg (2 tablets) for severe heartburn., Routine heparin (porcine) injection 0-4,000 Units 0-4,000 Units, Intravenous, BOLUS PER HEPARIN PROTOCOL, Starting on Sun06/23/19 at 2258, Until Sun06/24/19 at 1708, Per Protocol, START ADJUSTMENT SCHEDULE 6 HOURS AFTER STARTING INFUSION Heparin UFH Level between 0.1 - 0.29 IU/mL: Bolus 2,000 units Heparin UFH Level less than 0.1 IU/mL: Bolus 4,000 units, Routine Given 06/24/2019 4:23 PM EDT 2,000 Units heparin 25,000 units in dextrose 5% 500 mL infusion 0-5,000 Units/hr (0-100 mL/hr), Intravenous, CONTINUOUS, Starting on Sun06/23/19 at 2315, Until Sun06/24/19 at 1708, BEGIN infusion at 1,000 units per hr (12 units/kg/hr). MAX INITIAL infusion rate is 1,000 units/hr. Target Heparin UFH Level (anti-Xa activity) = 0.3 - 0.7 IU/mL Start adjustment schedule 6 hours after starting infusion. If Heparin UFH Level is: - less than 0.1 IU/mL, administer PRN bolus and increase rate by 350 units per hr (4 units/kg/hr) - 0.1 - 0.29 IU/mL, administer PRN bolus and increase rate by 200 units per hr (2 units/kg/hr) - 0.3 - 0.7 IU/mL, No Change - 0.71 - 0.85 IU/mL, decrease rate by 100 units per hr (1 units/kg/hr) - 0.86 - 1.05 IU/mL, stop infusion for 30 minutes, then decrease rate by 200 units per hr (2 units/kg/hr) - Greater than 1.05 IU/mL, stop infusion for 60 minutes, then decrease rate by 300 units per hour (3 units/kg/hr) Repeat Heparin UFH Level 6 hours after initiating heparin. Then 6 hours after each dose adjustment. When 2 consecutive Heparin UFH Level within target range of 0.3 - 0.7 IU/mL, change Heparin UFH Level to once every 24 hours with A.M. labs while on heparin. RN to order required Heparin UFH Level - Per Protocol, Routine, Indication: Pulmonary Embolism Rate/Dose Change 06/24/2019 4:21 PM EDT 1,100 Units/hr 22 mL/hr Rate/Dose Change 06/24/2019 7:15 AM EDT 900 Units/hr 18 mL /hr Rate/Dose Verify 06/24/2019 6:00 AM EDT 1,000 Units/hr 20 mL/hr magnesium sulfate 1g in dextrose 5% 100mL 1 g, Intravenous, ONCE, 1 dose, On Sun06/24/19 at 0545, Administer over 60 Minutes New Bag 06/24/2019 6:32 AM EDT 1 g 100 mL/hr perflutren protein-A microspheres (OPTISON) 0.22 mg/mL injection 0.5 mL 0.5 mL, Intravenous, ONCE PRN, 1 dose, Starting on Sun06/24/19 at 1058, Until Sun06/24/19 at 1058, for enhancement of sub-optimal echo images, Echo Lab (Intra-Procedure), Routine Given 06/24/2019 10:58 AM EDT 2.5 mLs sodium chloride 0.9 % (flush) flush 5 mL 5 mL, Intravenous, 2 TIMES DAILY, First dose on Sun06/23/19 at 2315, Until Discontinued, Routine Given 06/25/2019 8:56 AM EDT 5 mLs sodium chloride 0.9 % (flush) flush 5 mL 5 mL, Intravenous, 2 TIMES DAILY, First dose on Sun06/23/19 at 2315, Until Discontinued, Routine Given 06/24/2019 8:30 PM EDT 5 mLs Given 06/24/2019 9:00 AM EDT 5 mLs tiotropium bromide (SPIRIVA RESPIMAT) 2.5 mcg/actuation actuation mist for inhalation 2 puff 2 puff, Inhalation, DAILY, First dose on Sun06/24/19 at 0900, Until Discontinued, Must be primed prior to first administration, Routine Given 06/25/2019 8:03 AM EDT 2 puffs Given 06/24/2019 11:32 AM EDT 2 puffs documented in this encounter Active and Recently Administered Medications Times are shown in EDT. Scheduled Medication Order 06/23/2019 06/24/2019 06/25/2019 apixaban (ELIQUIS) tablet 10 mg 10 mg, Oral, 2 TIMES DAILY, 14 doses, First dose on Sun06/24/19 at 1900, Last dose on Sun07/01/19 at 0600, Anticoagulant, Routine, Restricted anticoagulant, choose the most appropriate response: Appoved indication of DVT and/or PE 1854 (Given - Provider: Sharmila Roblero) 0601 (Given - Provider: Sharlene Guzman, ILANA) aspirin chewable tablet 81 mg 81 mg, Oral, DAILY, First dose on Sun06/24/19 at 0900, Until Discontinued, Routine 0909 (Given - Provider: Sharmila Roblero) 0855 (Given - Provider: Yumi Rashid, ILANA) budesonide-formoterol (SYMBICORT) 160-4.5 mcg/actuation inhaler 2 Inhalation 2 Inhalation , Inhalation, 2 TIMES DAILY, First dose on Sun06/23/19 at 2315, Until Discontinued 0018 (Given - Provider: Heidi Das RN - Comment: med not availible from pharmacy)1131 (Given - Provider: Sharmila Roblero)2030 (Given - Provider: Sharlene Guzman RN) 0803 (Given - Provider: Aliza Haas RCP) magnesium sulfate 1g in dextrose 5% 100mL (COMPLETED) 1 g, Intravenous, ONCE, 1 dose, On Sun06/24/19 at 0545, Administer over 60 Minutes 0632 (New Bag - Provider: Heidi Das RN)0732 (Stopped - Provider: Sharmila Roblero) sodium chloride 0.9 % (flush) flush 5 mL 5 mL, Intravenous, 2 TIMES DAILY, First dose on Sun06/23/19 at 2315, Until Discontinued, Routine 2315 (Not Given - Provider: Heidi Das RN - Reason: Order parameters not met) 0900 (Not Given - Provider: Sharmila Roblero - Reason: Order parameters not met)2100 (Not Given - Provider: Sharlene Guzman RN - Reason: See comment - Comment: 1 IV, flushed) 0856 (Given - Provider: Yumi Rashid RN) sodium chloride 0.9 % (flush) flush 5 mL 5 mL, Intravenous, 2 TIMES DAILY, First dose on Sun06/23/19 at 2315, Until Discontinued, Routine 2315 (Not Given - Provider: Heidi Das RN - Reason: Order parameters not met) 0900 (Given - Provider: Sharmila Roblero)2030 (Given - Provider: Sharlene Guzman, ILANA) 0900 (Not Given - Provider: Yumi Rashid RN - Reason: Order parameters not met) tiotropium bromide (SPIRIVA RESPIMAT) 2.5 mcg/actuation actuation mist for inhalation 2 puff 2 puff, Inhalation, DAILY, First dose on Sun06/24/19 at 0900, Until Discontinued, Must be primed prior to first administration, Routine 1132 (Given - Provider: Sharmila Roblero) 0803 (Given - Provider: Aliza Haas RCP) Continuous Medication Order 06/23/2019 06/24/2019 06/25/2019 heparin 25,000 units in dextrose 5% 500 mL infusion (CANCELED)(Linked Group 1) 0-5,000 Units/hr (0-100 mL/hr), Intravenous, CONTINUOUS, Starting on Sun06/23/19 at 2315, Until Sun06/24/19 at 1708, BEGIN infusion at 1,000 units per hr (12 units/kg/hr). MAX INITIAL infusion rate is 1,000 units/hr. Target Heparin UFH Level (anti-Xa activity) = 0.3 - 0.7 IU/mL Start adjustment schedule 6 hours after starting infusion. If Heparin UFH Level is: - less than 0.1 IU/mL, administer PRN bolus and increase rate by 350 units per hr (4 units/kg/hr) - 0.1 - 0.29 IU/mL, administer PRN bolus and increase rate by 200 units per hr (2 units/kg/hr) - 0.3 - 0.7 IU/mL, No Change - 0.71 - 0.85 IU/mL, decrease rate by 100 units per hr (1 units/kg/hr) - 0.86 - 1.05 IU/mL, stop infusion for 30 minutes, then decrease rate by 200 units per hr (2 units/kg/hr) - Greater than 1.05 IU/mL, stop infusion for 60 minutes, then decrease rate by 300 units per hour (3 units/kg/hr) Repeat Heparin UFH Level 6 hours after initiating heparin. Then 6 hours after each dose adjustment. When 2 consecutive Heparin UFH Level within target range of 0.3 - 0.7 IU/mL, change Heparin UFH Level to once every 24 hours with A.M. labs while on heparin. RN to order required Heparin UFH Level - Per Protocol, Routine, Indication: Pulmonary Embolism 2200 (New Bag - Provider: Heidi Das RN)2345 (Stopped - Provider: Heidi Das RN) 0107 (Restarted - Provider: Heidi Das RN)0400 (Rate/Dose Verify - Provider: Heidi Das RN)0600 (Rate/Dose Verify - Provider: Heidi Das RN)0715 (Rate/Dose Change - Provider: Heidi Das RN)1621 (Rate/Dose Change - Provider: Sharmila Roblero) PRN Medication Order 06/23/2019 06/24/2019 06/25/2019 acetaminophen (TYLENOL) tablet 650 mg 650 mg, Oral, EVERY 4 HOURS PRN, Starting on Sun06/23/19 at 2258, Until Sun06/25/19 at 1617, Pain, Headaches, Maximum dose of acetaminophen is 4000 mg from all sources in 24 hours., Routine calcium carbonate (Tums) chewable tablet 500-1,000 mg 500-1,000 mg, Oral, EVERY 4 HOURS PRN, Starting on Sun06/23/19 at 2303, Until Sun06/25/19 at 1617, Heartburn, Give 500 mg (1 tablet) for mild to moderate heartburn. Give 1,000 mg (2 tablets) for severe heartburn., Routine heparin (porcine) injection 0-4,000 Units (CANCELED)(Linked Group 1) 0-4,000 Units, Intravenous, BOLUS PER HEPARIN PROTOCOL, Starting on Sun06/23/19 at 2258, Until Sun06/24/19 at 1708, Per Protocol, START ADJUSTMENT SCHEDULE 6 HOURS AFTER STARTING INFUSION Heparin UFH Level between 0.1 - 0.29 IU/mL: Bolus 2,000 units Heparin UFH Level less than 0.1 IU/mL: Bolus 4,000 units, Routine 1623 (Given - Provider: Sharmila Roblero) ipratropium-albuterol (DUONEB) 0.5 mg-3 mg(2.5 mg base)/3 mL nebulizer solution 3 mL 3 mL, Nebulization, EVERY 4 HOURS PRN, Starting on Sun06/23/19 at 2258, Until Sun06/25/19 at 1617, Wheezing, Routine lidocaine (XYLOCAINE) 10 mg/mL (1 %) injection 3 mg 3 mg (0.3 mL), Subcutaneous, ONCE PRN, 1 dose, Starting on Sun06/23/19 at 2258, Until Sun06/25/19 at 1617, for discomfort with PIV insertion, Routine nitroGLYcerin (NITROSTAT) SL tablet 0.4 mg 0.4 mg, Sublingual, EVERY 5 MIN PRN, Starting on Sun06/23/19 at 2258, Until Sun06/25/19 at 1617, Chest pain, May repeat every 5 minutes for a total of three doses. Notify provider if chest pain not relieved with nitroglycerin. Do not administer nitroglycerin if the patient has received or taken phosphodiesterase (PDE-5) inhibitors such as sildenafil, tadalafil or vardenafil within the last 24 to 72 hours., Routine perflutren protein-A microspheres (OPTISON) 0.22 mg/mL injection 0.5 mL (COMPLETED) 0.5 mL, Intravenous, ONCE PRN, 1 dose, Starting on Sun06/24/19 at 1058, Until Sun06/24/19 at 1058, for enhancement of sub-optimal echo images, Echo Lab (Intra-Procedure), Routine 1058 (Given - Provider: Tony Martinez) sodium chloride 0.9 % (flush) flush 5-20 mL 5-20 mL, Intravenous, EVERY 1 MIN PRN, Starting on Sun06/23/19 at 2258, Until Sun06/25/19 at 1617, flush, Flush pertains to all indwelling lines. Flush per protocol found in the job aid using the link provided on this medication record., Routine sodium chloride 0.9 % (flush) flush 5-20 mL 5-20 mL, Intravenous, EVERY 1 MIN PRN, Starting on Sun06/23/19 at 2258, Until Sun06/25/19 at 1617, flush, Flush pertains to all indwelling lines. Flush per protocol found in the job aid using the link provided on this medication record., Routine Linked Groups Order Group 1: heparin (porcine) injection 0-4,000 Units (CANCELED)Jump to med 0-4,000 Units, Intravenous, BOLUS PER HEPARIN PROTOCOL, Starting on Sun06/23/19 at 2258, Until Sun06/24/19 at 1708, Per Protocol, START ADJUSTMENT SCHEDULE 6 HOURS AFTER STARTING INFUSION Heparin UFH Level between 0.1 - 0.29 IU/mL: Bolus 2,000 units Heparin UFH Level less than 0.1 IU/mL: Bolus 4,000 units, Routine And heparin 25,000 units in dextrose 5% 500 mL infusion (CANCELED)Jump to med 0-5,000 Units/hr (0-100 mL/hr), Intravenous, CONTINUOUS, Starting on Sun06/23/19 at 2315, Until Sun06/24/19 at 1708, BEGIN infusion at 1,000 units per hr (12 units/kg/hr). MAX INITIAL infusion rate is 1,000 units/hr. Target Heparin UFH Level (anti-Xa activity) = 0.3 - 0.7 IU/mL Start adjustment schedule 6 hours after starting infusion. If Heparin UFH Level is: - less than 0.1 IU/mL, administer PRN bolus and increase rate by 350 units per hr (4 units/kg/hr) - 0.1 - 0.29 IU/mL, administer PRN bolus and increase rate by 200 units per hr (2 units/kg/hr) - 0.3 - 0.7 IU/mL, No Change - 0.71 - 0.85 IU/mL, decrease rate by 100 units per hr (1 units/kg/hr) - 0.86 - 1.05 IU/mL, stop infusion for 30 minutes, then decrease rate by 200 units per hr (2 units/kg/hr) - Greater than 1.05 IU/mL, stop infusion for 60 minutes, then decrease rate by 300 units per hour (3 units/kg/hr) Repeat Heparin UFH Level 6 hours after initiating heparin. Then 6 hours after each dose adjustment. When 2 consecutive Heparin UFH Level within target range of 0.3 - 0.7 IU/mL, change Heparin UFH Level to once every 24 hours with A.M. labs while on heparin. RN to order required Heparin UFH Level - Per Protocol, Routine, Indication: Pulmonary Embolism documented in this encounter Care Teams It Application Development Manager Relationship Specialty Start Date End Date Alber Garcia MD PCP - General General Internal Medicine 12/12/18 documented as of this encounter
--- OUTSIDE RECORDS SUMMARY | 2024-04-21 15:17 | XMS_ITS | Encounter Summary ---
Author Organization [facility] [place] [address] Care Team Providers Care Air Cargo Specialist Name Role Phone Alber Garcia MD Primary Care Provider [phone] Encounter Details Date Type Department Care Team (Late st Contact Info) Description 06/23/2019 External Results [place] [address] Social History Tobacco Use Types Packs/Day Years [...] 11:00 AM EDT [place] [address] Cristian Carolina Jr., MD [facility] [place] [address] documented as of this encounter Procedures Procedure Name Priority Date/Time Associated Diagnosis Comments ECG SCAN Routine 06/23/2019 documented in this encounter Results * Scan Doc: ECG (06/23/2019) Historical Provider MD ZAMAN MGR SCAN EX T ORDR/RSLT documented in this encounter Visit Diagnoses Not on filedocumented in this encounter Care Teams Air Cargo Specialist Relationship Specialty Start Date End Date Alber Garcia MD PCP - General General Internal Medicine 12/12/18 documented as of this encounter
--- OUTSIDE RECORDS SUMMARY | 2024-04-21 15:17 | XMS_ITS | Encounter Summary ---
[place] [address] Care Team Providers Care Laser Beam Color Scanner Operator Name Role Phone Alber Garcia MD Primary Care Provider [phone] Encounter Details Date Type Department Care Team (Late st Contact Info) Description 01/22/2019 Telephone [place] [phone] Heidi Bo RT Social History Tobacco Use Types Packs/Day Years Used Date Smoking Tobacco: Former Cigarettes Q uit: 11/17/2017 Smokeless Tobacco: Never Sex and Gender Information Value Date Recorded Sex Assigned at Not on file Gender Identity Not on file Sexual Orientation Not on file documented as of this encounter Miscellaneous Notes * Telephone Encounter - Heidi Bo RT - 01/22/2019 10:24 AM EDT Called Jeremiah Savage at home and LM to call regarding pulmonary rehabilitation programs near his home as potential option to [facility] pulmonary rehab due to scheduling in of March. Potential other programs: [facility] in [place], [place], [facility] in [place], [place] documented in this encounter Plan of Treatment Upcoming Encounters Date Type Department Care Team (Late st Contact Info) Description 05/02/2024 11:00 AM EDT Office [place] [phone] Cristian Carolina Jr., MD [facility] [place] [address] documented as of this encounter Visit Diagnoses Not on filedocumented in this encounter Care Teams Laser Beam Color Scanner Operator Relationship Specialty Start Date End Date Alber Garcia MD PCP - General General Internal Medicine 12/12/18 documented as of this encounter
--- OUTSIDE RECORDS SUMMARY | 2024-04-21 15:17 | XMS_ITS | Encounter Summary ---
Author Organization [facility] [place] [address] Care Team Providers Care Observer [employer] Name Role Phone Susannah Malhotra MD Primary Care Provider [phone] Encounter Details Date Type Department Care Team (Late st Contact Info) Description 12/31/2020 [place] [address] Risa Garcia Social History Tobacco Use Types [...] 11:00 AM EDT [place] [address] Cristian Carolina Jr., MD [facility] [place] [address] documented as of this encounter Visit Diagnoses Not on filedocumented in this encounter Care Teams Observer [employer] Relationship Specialty Start Date End Date Susannah Malhotra MD [address] [place] [address] PCP - General Family Medicine 04/22/20 documented as of this encounter
--- OUTSIDE RECORDS SUMMARY | 2024-04-21 15:17 | XMS_ITS | Encounter Summary ---
Author Organization [facility] [place] [address] Care Team Providers Care Explosives Truck Driver Name Role Phone Susannah Malhotra MD Primary Care Provider [phone] Reason for Referral * Consultation (Urgent) - Specialty Diagnoses / Procedures Referred By Cari lester Referred To Contact Thoracic Surgery Diagnoses Lung nodule Ex-smoker Russel Younger MD [facility] [place] [address] Kang Connor MD [facility] [place] [address] Referral ID Status Reason Start Date Expiration Date V isits Requested Visits Authorized [id number] Consult, Test & Treat 04/22/2020 04/22/2021 1 1 * Diagnostic Test (Routine) - Closed Specialty Diagnoses / Procedures Referred By Cari lester Referred To Contact Radiology Diagnoses Lung nodule Ex-smoker Procedures NM PET CT Skull Base to Mid-thigh Russel Younger MD [facility] [place] [address] [place] [address] Referral ID Status Reason Start Date Expiration Date V isits Requested Visits Authorized [id number] Closed Specialty Service Requested 04/22/2020 10/23/2021 1 1 Encounter Details Date Type Department Care Team (Late st Contact Info) Description 04/22/2020 8:00 AM EDT Office Visit Pulmonology at [facility] [place] [address] Russel Younger MD [facility] [place] [address] Lung nodule; Stage 2 moderate COPD by GOLD classification; Ex-smoker Social History Tobacco Use Types Packs/Day Years Used Date Smoking Tobacco: Former Cigarettes 1.5 40 0 11/17/1977 - 11/17/2017 Smokeless Tobacco: Never Sex and Gender Information Value Date Recorded Sex Assigned at Not on file Gender Identity Not on file Sexual Orientation Not on file documented as of this encounter Last Filed Vital Signs Vital Sign Reading Time Taken Comments Blood Pressure 126/84 04/22/2020 7:39 AM EDT Pulse 71 04/22/2020 7:39 AM EDT Temperature 36.1 ??C (97 ??F) 04/22/2020 7:39 AM EDT Respiratory Rate 18 04/22/2020 7:39 AM EDT Oxygen Saturation 96% 04/22/2020 7:39 AM EDT Inhaled Oxygen Concentration - - Weight 99.8 kg (220 lb) 04/22/2020 7:39 AM EDT Height 180.3 cm (5' 11) 04/22/2020 7:39 AM EDT Body Mass Index 30.68 04/22/2020 7:39 AM EDT documented in this encounter Progress Notes * Russel Younger MD - 04/22/2020 8:00 AM EDT Images from the original note were not included. [facility] Section of Pulmonary Medicine COPD Clinic Consultation Date of Encounter: 04/22/2020 PCP: Susannah Malhotra MD [address] [place] [address] Background: ?? GOLD stage II COPD, FEV1 51% predicted in 2018, completed pulmonary rehab December 2019 [place], [place] ?? Ex-smoker, quit 2018 ?? Prior left pneumothorax treated with chest tube only, no recurrence ?? Remote history of pulmonary embolism, on apixaban ?? NEW 1.7 cm right upper lobe nodule HPI: I saw Jeremiah Savage in the COPD clinic today. Jeremiah is a 65-year-old man with GOLD stage II COPD.I have not seen him for just over a year. At our last visit a CT lung cancer screening showed only emphysema, we optimize some inhalers and I recommended pulmonary rehab. From a pulmonary symptom point of view he is really done fairly well. He describes stable dyspnea on exertion that really improved after the course of pulmonary rehab in the spring. By the end of it he could climb 2 flights of stairs with only mild dyspnea. He never required oxygen during his pulmonary rehab activities. He is using Anoro and Flovent and has had no exacerbations requiring antibiotics or prednisone in 12 months. He describes a brief episode of hemoptysis about a year ago but nothing for the last 12 months until 2 weeks ago when he coughed up a small amount of black sputum. His primary care team obtain some chest imaging and a CT scan shows a new 1.7 cm right upper lobe nodule, suspicious for malignancy we reviewed his scans together today and discussed next steps. Review of Systems: Weight stable, no headache, ROS otherwise negative Past Medical History: Past Medical History: Diagnosis Date ??? COPD (chronic obstructive pulmonary disease) ??? Emphysema of lung ??? Fractures right ankle fractureas child ??? GERD (gastroesophageal reflux disease) ??? Hypertension ??? Lung disease Patient Active Problem List Diagnosis Code ??? Pulmonary embolism I26.99 No problem Past Surgical History: Past Surgical History: Procedure [...] file Occupational History ??? Not on file Social Needs ??? Financial resource strain: Not on file ??? Food insecurity Worry: Not on file Inability: Not on file ??? Transportation needs Medical: Not on file Non-medical: Not on file Tobacco Use ??? Smoking status: Former Smoker Packs/day: 1.50 Years: 40.00 Pack years: 60.00 Last attempt to quit: 11/17/2017 Years since quittin.4 ??? Smokeless tobacco: Never Used Substance and Sexual Activity ??? Alcohol use: Not on file ??? Drug use: Not on file ??? Sexual activity: Not on file Lifestyle ??? Physical activity Days per week: Not on file Minutes per session: Not on file ??? Stress: Not on file Relationships ??? Social connections Talks on phone: Not on file Gets together: Not on file Attends adventism service: Not on file Active member of club or organization: Not on file Attends meetings of clubs or organizations: Not on file Relationship status: Not on file ??? Intimate partner violence Fear of current or ex partner: Not on file Emotionally abused: Not on file Physically abused: Not on file Forced sexual activity: Not on file Other Topics Concern ??? 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 Cancer Paternal Uncle Immunizations: No recent flu or pneumonia immunizations Examination: BP 126/84 Pulse 71 Temp 36.1 ??C (97 ??F) (Temporal) Resp 18 Ht 180.3 cm (5' 11) Wt 99.8kg (220 lb) SpO2 96% BMI 30.68 kg/m?? General: Comfortable at rest HEENT: No [...] nodule, no obvious adenopathy or metastatic disease Pulmonary Function Tests 2019: PFT Results Office Visit from 12/12/2018 in Pulmonology at [facility] PFT Results FEV1 (L) 1.55 liters FEV1 [...] deemed a significant bronchodilator response by the [place] [employer]. Diffusing capacity is 46% predicted Oxygen saturation 95% on RA at rest and fell to a stacy of 90% on room air during a 600 feet walk. Peak inspiratory flow rate testing revealed patient had adequate minimum inspiratory flow rates to effectively use all inhaler types Assessment: 1. New 1.7 cm right upper lobe nodule suspicious for early stage non-small cell lung cancer 2. COPD: GOLD stage 2 category B. This is moderate disease. 3. Former smoker, quit 2018 Jeremiah Savage is doing well with his COPD and the major problem is a new right upper lobe pulmonary nodule suspicious for malignancy. Imaging today suggest this is an early stage lung cancer and if that is confirmed by PET scan and biopsy I think he be a good candidate for either (A) right upper lobectomy (despite his low FEV1 he has significant emphysema or might actually tolerate this well) or(B) SBRT. I encouraged him to work on home exercise, the pulmonary rehab program in the spring was really helpful for him and I think we could improve his functional capacity. Other details of the plan as below Pulmonary nodule plan: ?? PET scan ?? Repeat PFTs ?? I will refer to thoracic surgery to request navigational bronchoscopy COPD Plan: 1. Medications Daily: Anoro 1 [...] Quit 2018 7. Pulmonary rehabilitation Referred to [facility] 8. Oxygen Not needed currently 9. Immunizations Up to date 10. Lung cancer screening Enrolled in our program 11. LVRS / Transplant 12. Palliative care 13. A1AT Testing MM genotype (normal) 14. Other Follow up: 2 months Russel Younger MD documented in this encounter Plan of Treatment Upcoming Encounters Date Type Department Care Team (Late st Contact Info) Description 05/02/2024 11:00 AM EDT Office [place] [address] Cristian Carolina Jr., MD [facility] [place] [address] Scheduled Referrals Name Type Priority Associated Diagnoses Orde r Schedule Referral to Thoracic Surgery Outpatient Referral Routine Lung nodule Ex-smoker Ordered: 04/22/2020 documented as of this encounter Results * NM PET CT Skull Base to Mid-thigh (04/29/2020 9:51 AM EDT) Anatomical Region Laterality Modality Positron Emissio n Tomography (PET) Impressions 04/29/2020 10:57 AM EDT 1. ??An approximately 15 mm FDG avid ill-defined semisolid opacity in the inferior right upper lobe, not present on prior CT of 06/23/2019 and with an appearance more suggestive of an interval inflammatory lesion. A neoplastic etiology is not excluded. 2. ??No evidence of regional tenisha or distant sites of metastasis. 3. ??Incidental finding of a 13 mm mildly FDG avid lymph node in the right external iliac region, which is of questionable significance and may represent a benign reactive node. Consider follow-up CT pelvis in 3-6 months to ensure stability of this node. Also consider workup of for possible prostatic neoplasm. 4. ??Diffuse esophageal activity, likely an esophagitis. Thank you for letting us participate in the care of this patient. For questions regarding this report, please contact the number below. ? Narrative 04/29/2020 10:57 AM EDT EXAMINATION: NM PET CT SKULL BASE TO MID-THIGH ? CLINICAL HISTORY: Metastatic disease evaluation 1.7 cm right upper lobe nodule suspicious for malignancy -assess for distant disease to inform biopsy decision TECHNIQUE: Following IV injection of 51-cihqns-5-deoxyglucose (FDG) a standard uptake of approximately 60 minutes, a noncontrast CT scan followed by a PET scan were acquired from the base of the skull to mid thighs. The noncontrast CT was used for anatomic localization and photon attenuation correction of the PET scan. Blood glucose level: 95 (mg/dL) FDG dose: 17.9 mCi COMPARISON: None FINDINGS: HEAD/NECK: Normal activity in all soft tissue regions of the neck and visualized lower head. No significant adenopathy. CHEST: An approximately 15 mm FDG avid ill-defined semisolid opacity in the inferior right upper lobe abutting the major fissure (centered on axial image 88). This was not evident on prior CT chest of 06/23/2019.Normal activity in all other regions of the lungs and in the bilateral hilar/mediastinal regions. Diffusely increased activity along the length of the esophagus, likely a diffuse esophagitis. ??Small focus of ill-defined moderately FDG avid subcutaneous soft tissue stranding in the midline upper back (axial image 62), consistent with a benign inflammatory process. Coronary and aortic calcifications are present. Diffuse emphysematous changes. ABDOMEN/PELVIS: A 13 mm mildly FDG avid lymph node in the right external iliac region (axial image 220) is of questionable significance. Normal activity in all other soft tissue regions. No significant adenopathy. Several small simple appearing hepatic cysts. Scattered small calcifications in the spleen, consistent with granulomata. SKELETON/EXTREMITIES: Normal activity in all regions of the axial and visualized appendicular skeleton. Diffusely increased FDG uptake in the soft tissues adjacent to the left femoral head is consistent with enthesopathy. Procedure Note Miguel Menjivar MD - 04/29/2020 EXAMINATION: NM PET CT SKULL BASE TO MID-THIGH CLINICAL HISTORY: Metastatic disease evaluation 1.7 cm right upper lobe nodule suspicious for malignancy -assess fordistant disease to inform biopsy decision TECHNIQUE: Following IV injection of 26-edshkx-8-deoxyglucose (FDG) astandard uptake of approximately 60 minutes, a noncontrast CT scan followed by aPET scan were acquired from the base of the skull to mid thighs. The noncontrast CTwas used for anatomic localization and photon attenuation correction of thePET scan. Blood glucose level: 95 (mg/dL) FDG dose: 17.9 mCi COMPARISON: None FINDINGS: HEAD/NECK: Normal activity in all soft tissue regions of the neck and visualizedlower head. No significant adenopathy. CHEST: An approximately 15 mm FDG avid ill-defined semisolid opacity in theinferior right upper lobe abutting the major fissure (centered on axial image 88).This was not evident on prior CT chest of 06/23/2019.Normal activity in allother regions of the lungs and in the bilateral hilar/mediastinal regions.Diffusely increased activity along the length of the esophagus, likely a diffuse esophagitis. Small focus of ill-defined moderately FDG avid subcutaneoussoft tissue stranding in the midline upper back (axial image 62), consistentwith a benign inflammatory process. Coronary and aortic calcifications arepresent. Diffuse emphysematous changes. ABDOMEN/PELVIS: A 13 mm mildly FDG avid lymph node in the right external iliac region(axial image 220) is of questionable significance. Normal activity in all othersoft tissue regions. No significant adenopathy. Several small simpleappearing hepatic cysts. Scattered small calcifications in the spleen, consistentwith granulomata. SKELETON/EXTREMITIES: Normal activity in all regions of the axial and visualized appendicular skeleton. Diffusely increased FDG uptake in the soft tissues adjacent tothe left femoral head is consistent with enthesopathy. IMPRESSION 1. An approximately 15 mm FDG avid ill-defined semisolid opacity in the inferior right upper lobe, not present on prior CT of 06/23/2019 and withan appearance more suggestive of an interval inflammatory lesion. Aneoplastic etiology is not excluded. 2. No evidence of regional tenisha or distant sites of metastasis. 3. Incidental finding of a 13 mm mildly FDG avid lymph node in theright external iliac region, which is of questionable significance and mayrepresent a benign reactive node. Consider follow-up CT pelvis in 3-6 months toensure stability of this node. Also consider workup of for possible prostaticneoplasm. 4. Diffuse esophageal activity, likely an esophagitis. Thank you for letting us participate in the care of this patient. Forquestions regarding this report, please contact the number below. Russel Younger MD IMG PET ORDERABLES * Pulmonary Function Testing (04/29/2020 7:41 AM EDT) Narrative Fantasma Mcmullen MD - 04/29/2020 7:41 AM EDT Fantasma Mcmullen MD ? 05/05/2020 ??2:10 PM FVC within normal limits. FEV1, FEV1/FVC are low. Diffusing capacity low. IMPRESSION: Obstructive lung disease. Russel Younger MD PFT ORDERABLES documented in this encounter Visit Diagnoses Diagnosis Lung nodule Solitary pulmonary nodule Stage 2 moderate COPD by GOLD classification Ex-smoker Personal history of tobacco use, presenting hazards to health Lung nodule Solitary pulmonary nodule Ex-smoker Personal history of tobacco use, presenting hazards to health Lung nodule Solitary pulmonary nodule Stage 2 moderate COPD by GOLD classification documented in this encounter Care Teams Explosives Truck Driver Relationship Specialty Start Date End Date Susannah Malhotra MD [address] [place] [address] PCP - General Family Medicine 04/22/20 documented as of this encounter
--- OUTSIDE RECORDS SUMMARY | 2024-04-21 15:17 | XMS_ITS | Encounter Summary ---
Author Organization [facility] [place] [address] Care Team Providers Care Advertising Writer Name Role Phone Susannah Malhotra MD Primary Care Provider [phone] Reason for Visit * Reason Comments Follow-up Encounter Details Date Type Department Care Team (Late st Contact Info) Description 07/29/2020 11:15 AM EDT Office Visit [place] [address] Donal Wilkins MD [facility] [place] [address] Right upper lobe pulmonary nodule; Panlobular emphysema; History of pulmonary embolus (PE) Social History Tobacco Use Types Packs/Day Years Used Date Smoking Tobacco: Former Cigarettes 1.5 40 0 11/17/1977 - 11/17/2017 Smokeless Tobacco: Never Sex and Gender Information Value Date Recorded Sex Assigned at Not on file Gender Identity Not on file Sexual Orientation Not on file documented as of this encounter Last Filed Vital Signs Vital Sign Reading Time Taken Comments Blood Pressure 118/90 07/29/2020 11:11 AM EDT Pulse 93 07/29/2020 11:11 AM EDT Temperature 36.5 ??C (97.7 ??F) 07/29/2020 11:11 AM E DT Respiratory Rate 22 07/29/2020 11:11 AM EDT Oxygen Saturation 95% 07/29/2020 11:11 AM EDT Inhaled Oxygen Concentration - - Weight 101.4 kg (223 lb 8 oz) 07/29/2020 11:11 A M EDT Height 180.3 cm (5' 11) 07/29/2020 11:11 AM EDT Body Mass Index 31.17 07/29/2020 11:11 AM EDT documented in this encounter Patient Instructions * Patient Instructions* Loreta Rothman RN - 07/29/2020 11:15 AM EDT Thank you for visiting Dr. Wilkins in clinic 07/29/20 Dr. Wilkins has stated that you are now on an as needed basis with Thoracic Surgery. Incentive Spirometer: Place the Incentive spirometer in your mouth when you are ready to take a slow deep breath in through your mouth (sucking motion, DO NOT BLOW into the device). Use your incentive spirometer as you were shown in clinic: 6 times daily/10 breaths each time. It is a sucking motion when you take a slow deep breath in, DO NOT BLOW INTO THIS MACHINE You may also bundle the use of the incentive spirometer as well - 30 breaths in the morning and 30 breaths at night. Please keep your incentive spirometer near your favorite chair so that in between commercials you can remember to use it! Take a slow, deep breath in through your mouth. While the piston rises, the indicator on the right should move upwards. It should stay between the 2 arrows for 2 to 4 seconds with each breath. If theindicator does not stay between the arrows, you are breathing either too fast or too slowly. The incentive spirometer will help you expand your lungs and encourage you to breathe deeply and fully. You will use the incentive spirometer as part of your recovery process and to prevent complications such as pneumonia. Please call Thoracic surgery at with any questions or concerns. documented in this encounter Progress Notes * Donal Wilkins MD - 07/29/2020 11:15 AM EDT Thoracic Surgery Attending Outpatient Consultation Note Donal Wilkins MD [place] [id number] ? Referring Provider: Russel Younger MD [facility] [place] [address] ?? Reason for Consultation: RUL nodule ?? Today, 07/29/2020, I saw Mr. Savage back in the Thoracic Surgery Clinic at [facility] in consultation for a Right upper lobe lung nodule. As you know, Mr. Savage is a 65 y.o. male with a 1.7cm right upper lobe nodule found on CT obtained following two episodes in early 04/26 in which he coughed up a small amount of black sputum. This has resolved. He has no new symptoms. He completed a course of antibiotics and returns today for follow-up CT scan for further assessment. ?? I have personally reviewed the following scans and results that are part of the work up, including: CT Chest 07/29/2020 IMPRESSION 1. Resolution of previously noted right upper lobe pulmonary nodule. 2. New from prior curvilinear band of groundglass opacity in the left lingula, likely related to atelectasis. 3. Moderate centrilobular emphysema. 4. Unexpected Finding: Focal nodular thickening at the gallbladder fundus, likely related to adenomyomatosis. Further evaluation with ultrasound of the right upper quadrant is recommended for diagnostic confirmation.?? PET/CT (04/29/20) IMPRESSION 1. ??An approximately 15 mm FDG avid [...] 4. ??Diffuse esophageal activity, likely an esophagitis. ?? CT Chest w contrast at [facility] (04/15/20) 1.7 x 1.4cm nodule in the right upper lobe above the major fissure, new since exam of 06/23/20. ?? CTA Chest 06/23/2019 multiple pulmonary emboli noted bilaterally, marked bilateral emphysema, no adenopathy ?? Pulmonary function tests on 07/23/20 showed an FVC of 3.84L, 90% of predicted; and FEV1 of 1.98L, 61% predicted; and a DLCO of 8.61mL/min/mmHg, 33% predicted. ?? He denies fevers, night sweats, or chest pain on exertion. He denies weight loss. He reports fatigue and intermittent productive cough that typically brings up clear sputum but that brought up black sputum 2x ~1month ago. He is able to walk up 1 flight of stairs without difficulty. ?? A 14-point review of systems is otherwise negative, except where noted above. ?? He has a past medical history of COPD (chronic obstructive pulmonary disease), Emphysema of lung, Fractures, GERD (gastroesophageal reflux disease), Hypertension, Lung disease, and Sleep apnea. 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 ?? He has a past surgical history that includes joint replacement (, 1989). ?? He has a current medication list which includes the following prescription(s): flovent hfa, apixaban, umeclidinium-vilanterol, proair hfa, and lisinopril. ?? He has No Known Allergies. ?? His family history includes Aneurysm in his mother; Cancer in his paternal uncle; Chronic Obstructive Pulmonary Disease in his mother; Heart Disease in his father; Hypertension in his father; Leukemia in his paternal uncle. ?? A review of his social history shows: Social History ?? Tobacco Use ??? Smoking status: Former Smoker ? Packs/day: 1.50 ? Years: 40.00 ? Pack years: 60.00 ? Last attempt to quit: 11/17/2017 ? Years since quittin.4 ??? Smokeless tobacco: Never Used Substance Use Topics ??? Alcohol use: Not on file ?? On examination, Mr. Savage is a well nourished, well-developed male. He is alert and oriented. Vital Signs: BP 118/90 (Patient Position: Sitting) Pulse 93 Temp 36.5 ??C (97.7 ??F) (Temporal) Resp 22 Ht 180.3 cm (5' 11) Wt 101.4 kg (223 lb 8 oz) SpO2 95% BMI 31.17 kg/m?? . His pulse is regular, breathing is unlabored and temperature is afebrile. In general he is in no acute distress. His pupils are reactive. His sclera are anicteric. Neurologic examination is grossly intact. Musculoskelatal exam is grossly intact. His skin is non-jaundiced. ?? In summary, Mr. Savage is a 65 y.o. male with a 1.7cm right upper lobe lung nodule previously seenon imaging that has now resolved. He has some new atelectasis of the left upper lobe. We discussed these findings and he was given an incentive spirometer and instructed on its use and told to use itmultiple times per day. ?? He should continue follow-up with Dr. Younger and should get a repeat LDCT for lung cancer screeningin 1 year. He was informed of the unexpected finding in the gall bladder and my office contact his PCP's office to make them aware of this. I will leave further work- up of this likely benign finding to them. He may follow-up with me on an as needed basis, and I am happy to see him in the future if a new nodule arises or he has some other need of my services. ?? If he should have any further questions or concerns, he should feel free to contact us. Donal Wilkins MD 07/29/2020 documented in this encounter Plan of Treatment Upcoming Encounters Date Type Department Care Team (Late st Contact Info) Description 05/02/2024 11:00 AM EDT Office Visit [place] [address] Cristian Carolina Jr., MD [facility] [place] [address] documented as of this encounter Visit Diagnoses Diagnosis Right upper lobe pulmonary nodule Panlobular emphysema Other emphysema History of pulmonary embolus (PE) Personal history of pulmonary embolism documented in this encounter Care Teams Advertising Writer Relationship Specialty Start Date End Date Susannah Malhotra MD [address] [place] [address] PCP - General Family Medicine 04/22/20 documented as of this encounter
--- OUTSIDE RECORDS SUMMARY | 2024-04-21 15:17 | XMS_ITS | Encounter Summary ---
Author Organization Formerly [facility] [place] [place] [address] Care Team Providers Care Spray Painter Name Role Phone None Primary Care Provider Unavailabl e Encounter Details Date Type Department Care Team (Late st Contact Info) Description 04/19/2020 [place] [address] Nini Joseph Social History Tobacco Use Types [...] 11:00 AM EDT [place] [address] Cristian Carolina Jr., MD [facility] [place] [address] documented as of this encounter Visit Diagnoses Not on filedocumented in this encounter Care Teams Spray Painter Relationship Specialty Start Date End Date None None PCP - General 11/11/19 04/21/20 documented as of this encounter
--- OUTSIDE RECORDS SUMMARY | 2024-04-21 15:17 | XMS_ITS | Encounter Summary ---
[place] [address] Care Team Providers Care Instrument Tech Name Role Phone None Primary Care Provider Unavailabl e Reason for Referral * Diagnostic Test (Routine) - Closed Specialty Diagnoses / Procedures Referred By Contac t Referred To Contact Cardiology Diagnoses Other acute pulmonary embolism with acute cor pulmonale Procedures Echocardiogram Transthoracic([facility]) Elkin Dixon MD [facility] [place] [address] [facility] [place] [address] Referral ID Status Reason Start Date Expiration Date V isits Requested Visits Authorized [id number] Closed Specialty Service Requested 07/15/2019 07/14/2020 1 1 Reason for Visit * Diagnostic Test (Routine) - Closed Specialty Diagnoses / Procedures Referred By Contac t Referred To Contact Cardiology Diagnoses Other acute pulmonary embolism with acute cor pulmonale Procedures Echocardiogram Transthoracic([facility]) Elkin Dixon MD [facility] [place] [address] [facility] [place] [address] Referral ID Status Reason Start Date Expiration Date V isits Requested Visits Authorized [id number] Closed Specialty Service Requested 07/15/2019 07/14/2020 1 1 Encounter Details Date Type Department Care Team (Latest Contact Info) Description 11/11/2019 9:42 AM EST - 11/11/2019 11:59 PM EST Hospital Encounter Non-Invasive Cardiology Lab Counts Include [address] [facility] [address] Elkin Dixon MD [facility] [place] [address] Other acute pulmonary embolism with acute cor pulmonale Discharge Disposition: Home Social History Tobacco Use Types Packs/Day Years Used Date Smoking Tobacco: Former Cigarettes 1.5 40 0 11/17/1977 - 11/17/2017 Smokeless Tobacco: Never Sex and Gender Information Value Date Recorded Sex Assigned at Not on file Gender Identity Not on file Sexual Orientation Not on file documented as of this encounter Medications at Time of Discharge [...] EVERY 6 HOURS NEEDED 98 08/01/2018 04/10/2022 documented as of this encounter Plan of Treatment Upcoming Encounters Date Type Department Care Team (Late st Contact Info) Description 05/02/2024 11:00 AM EDT Office Visit Pulmonology at [facility] [place] [address] Cristian Carolina Jr., MD [facility] [place] [address] documented as of this encounter Procedures Procedure Name Priority Date/Time Associated Diagnosis Comments ECHO COMPLETE Routine 11/11/2019 11:34 AM EST Other acute pulmonary embolism with acute cor pulmonale documented in this encounter Results * ECHO COMPLETE (11/11/2019 11:34 AM EST) EF 65 [employer] SYSTEM Anatomical Region Laterality Modality Other 11/11/2019 Narrative 11/11/2019 12:02 PM EST Procedure: ?Transthoracic Echocardiogram Patient: ?SAWYER SANDERS ?(Age): 1955(64y) Med Rec#: ? [id number] ?Sex: ?M ? Site Loc: ? [facility] ?Ht / Wt: ??180.34(cm)/90.7 Pt. Loc: ?Echo Lab ?BSA: ?2.11 Study Date: ?? 11/11/2019 ?Pt. Type: Outpatient Tape: ? Referring: HUDSON Reading: Jose De Jesus Nava ([id number]) Project Buyer: Ranulfo Smith Diagnosis: *Other pulmonary embolism with acute cor pulmonale (I26.09) Rhythm: ? Sinus BP: ? 112/83 SUMMARY: 1. The left ventricular chamber size [...] is probably borderline low normal at this point. ?? Findings ? : Study Quality: ? Technically limited Left Ventricle: ? The left ventricle is not well visualized. ?The left ventricular chamber size is normal. ?Basal septal hypertrophy is observed. ?There is no evidence of LVOT obstruction. ?There is normal global left ventricular systolic function. ??Ejection fraction is estimated to be 65%. ?There are no left ventricular segmental wall motion abnormalities. ?The left ventricular diastolic filling pattern is consistent with impaired LV relaxation. ?Doppler assessment is consistent with normal left sided filling pressure. Left Atrium: ? The left atrium is normal in size.20 ml/m2 ?The inter-atrial septum appears lipomatous. ?There is no evidence of a patent foramen ovale by color Doppler. Right Ventricle: ? The right ventricle is mildly dilated. ?Right ventricular wall thickness is normal. ?Right ventricular global systolic function is mildly reduced. Right Atrium: ? The right atrium appears normal. Aortic Valve: ? The aortic valve is tricuspid. ?The aortic valve leaflets are mildly thickened. ?There is aortic annular calcification. ?There is no evidence of aortic valve stenosis. ?There is no evidence of aortic regurgitation. Mitral Valve: ? The mitral valve appears normal in structure and function. ?There is trace mitral regurgitation present. Tricuspid Valve: ? The tricuspid valve appears normal in structure and function. ?There is trace tricuspid regurgitation present. Pulmonic Valve: ? The pulmonic valve appears normal in structure and function. Pericardium: ? The pericardium appears normal and there is no evidence of a pericardial effusion. Aorta: ? There is mild dilatation of the aortic root.4.1 cm ?There is mild dilatation of the ascending aorta.3.8 cm Pulmonary Artery: ? The main pulmonary artery appears normal. Venous: ? The inferior vena cava appears normal in size. ?There is a greater than 50% respiratory change in the inferior vena cava dimension. Misc: ? See remainder of report for additional findings. ?Two-dimensional echo, spectral Doppler and color Doppler performed. Chambers 2D ?Value ?Units (Range) ? Ao root diameter (2D4.07 ? cm (2.1 - 3.6) ? Ascending Ao ?3.78 ? cm (2 - 3.5) ? Volumes/Mass ?Value ?Units (Range) ? LA ESV BP (A/L) inde19.95 ?ml/m2 ? Diastolic/Systolic Function ?Value ?Units (Range) ? MV E-wave Vmax ?0.35 ? m/sec ? MV deceleration ywox212.28 ? msec ? MV A-wave Vmax ?0.59 ? m/sec ? MV E:A ratio ?0.59 ? ratio ? LV septal e' Vmax ?? 0.04 ? m/sec ? LV lateral e' Vmax ??0.06 ? m/sec ? LV average e' Vmax ??0.05 ? m/sec ? LV E:e' septal ratio8.81 ? ratio ? LV E:e' lateral rati5.88 ? ratio ? LV average E:e' rati7.05 ? ratio ? Wall Motion: Segment Name ?Rest ? Base-Anteroseptal ?? Normal ? Base-Anterior ? Normal ? Base-Anterolateral ??Normal ? Base-Posterolateral Normal ? Base-Inferior ? Normal ? Base-Inferoseptal ?? Normal ? Mid-Anteroseptal ?Normal ? Mid-Anterior ?Normal ? Mid-Anterolateral ?? Normal ? Mid-Posterolateral ??Normal ? Mid-Inferior ?Normal ? Mid-Inferoseptal ?Normal ? [place]-Septal ? Normal ? [place]-Anterior ? Normal ? [place]-Lateral ?Normal ? [place]-Inferior ? Normal ? [place]-Tip ?Normal ? This report has been electronically signed by: Jose De Jesus Nava MD ? 11/11/2019 12:02:00 Images reviewed and interpretation verified [facility] Cardiac Ultrasound Laboratory Procedure Note Jose De Jesus Nava MD - 11/11/2019 Procedure: Transthoracic Echocardiogram Patient: SAWYER WHITAKER(Age): 1955(64y) Med Rec#: [id number] Sex: M Site Loc: [facility] Ht / Wt: 180.34(cm)/90.7 Pt. Loc: Echo Lab BSA: 2.11 Study Date: 11/11/2019 Pt. Type: Outpatient Tape: Referring: HUDSON Reading: Jose De Jesus Nava ([id number]) Project Buyer: Ranulfo Smith Diagnosis: *Other pulmonary embolism with acute cor pulmonale (I26.09) Rhythm: Sinus BP: 112/83 SUMMARY: 1. The left ventricular chamber size is normal. There is normal global left ventricular systolic function. Ejection fraction is estimated to be 65%. There are no left ventricular segmental wall [...] report from 06/24/2019, the findings are similar. RV is probably borderline low normal at this point. Findings : Study Quality: Technically limited Left Ventricle: The left ventricle is not well visualized. The left ventricular chamber size is normal. Basal septal hypertrophy is observed. There is no evidence of LVOT obstruction. There is normal global left ventricular systolic function. Ejection fraction is estimated to be 65%. There are no left ventricular segmental wall motion abnormalities. The left ventricular diastolic filling pattern is consistent with impaired LV relaxation. Doppler assessment is consistent with normal left sided filling pressure. Left Atrium: The left atrium is normal in size.20 ml/m2 The inter-atrial septum appears lipomatous. There is no evidence of a patent foramen ovale by color Doppler. Right Ventricle: The right ventricle is mildly dilated. Right ventricular wall thickness is normal. Right ventricular global systolic function is mildly reduced. Right Atrium: The right atrium appears normal. Aortic Valve: The aortic valve is tricuspid. The aortic valve leaflets are mildly thickened. There is aortic annular calcification. There is no evidence of aortic valve stenosis. There is no evidence of aortic regurgitation. Mitral Valve: The mitral valve appears normal in structure and function. There is trace mitral regurgitation present. Tricuspid Valve: The tricuspid valve appears normal in structure and function. There is trace tricuspid regurgitation present. Pulmonic Valve: The pulmonic valve appears normal in structure and function. Pericardium: The pericardium appears normal and there is no evidence of a pericardial effusion. Aorta: There is mild dilatation of the aortic root.4.1 cm There is mild dilatation of the ascending aorta.3.8 cm Pulmonary Artery: The main pulmonary artery appears normal. Venous: The inferior vena cava appears normal in size. There is a greater than 50% respiratory change in the inferior vena cava dimension. Misc: See remainder of report for additional findings. Two-dimensional echo, spectral Doppler and color Doppler performed. Chambers 2D Value Units (Range) Ao root diameter (2D4.07 cm (2.1 - 3.6) Ascending Ao 3.78 cm (2 - 3.5) Volumes/Mass Value Units (Range) LA ESV BP (A/L) inde19.95 ml/m2 Diastolic/Systolic Function Value Units (Range) MV E-wave Vmax 0.35 m/sec MV deceleration atbb820.28 msec MV A-wave Vmax 0.59 m/sec MV E:A ratio 0.59 ratio LV septal e' Vmax 0.04 m/sec LV lateral e' Vmax 0.06 m/sec LV average e' Vmax 0.05 m/sec LV E:e' septal ratio8.81 ratio LV E:e' lateral rati5.88 ratio LV average E:e' rati7.05 ratio Wall Motion: Segment Name Rest Base-Anteroseptal Normal Base-Anterior Normal Base-Anterolateral Normal Base-Posterolateral Normal Base-Inferior Normal Base-Inferoseptal Normal Mid-Anteroseptal Normal Mid-Anterior Normal Mid-Anterolateral Normal Mid-Posterolateral Normal Mid-Inferior Normal Mid-Inferoseptal Normal [place]-Septal Normal [place]-Anterior Normal [place]-Lateral Normal [place]-Inferior Normal [place] Normal This report has been electronically signed by: Jose De Jesus Nava MD 11/11/2019 12:02:00 Images reviewed and interpretation verified [facility] Cardiac Ultrasound Laboratory Elkin Dixon MD ECHO ORDERABLES documented in this encounter Visit Diagnoses Diagnosis Other acute pulmonary embolism with acute cor pulmonale documented in this encounter Care Teams Instrument Tech Relationship Specialty Start Date End Date None None PCP - General 11/11/19 04/21/20 documented as of this encounter
--- OUTSIDE RECORDS SUMMARY | 2024-04-21 15:17 | XMS_ITS | Encounter Summary ---
Author Organization [facility] [place] [address] [place] [address] Care Team Providers Care Postdoctoral Fellow Name Role Phone None Primary Care Provider Unavailabl e Reason for Visit * Reason Comments Deep Vein Thrombosis Pulmonary Embolism Encounter Details Date Type Department Care Team (Late st Contact Info) Description 11/11/2019 11:30 AM EST Office Visit [place] [address] Elkin Dixon MD [facility] [address] Other acute pulmonary embolism with acute cor pulmonale; Chronic deep vein thrombosis of right femoral vein Social History Tobacco Use Types Packs/Day Years Used Date Smoking Tobacco: Former Cigarettes 1.5 40 0 11/17/1977 - 11/17/2017 Smokeless Tobacco: Never Sex and Gender Information Value Date Recorded Sex Assigned at Not on file Gender Identity Not on file Sexual Orientation Not on file documented as of this encounter Last Filed Vital Signs Vital Sign Reading Time Taken Comments Blood Pressure 106/78 11/11/2019 11:36 AM EST Pulse 67 11/11/2019 11:36 AM EST Temperature - - Respiratory Rate - - Oxygen Saturation - - Inhaled Oxygen Concentration - - Weight 90.7 kg (200 lb) 11/11/2019 11:36 AM EST reported Height 180.3 cm (5' 11) 11/11/2019 11:36 AM EST reported Body Mass Index 27.89 11/11/2019 11:36 AM EST documented in this encounter Progress Notes * Elkin Dixon MD - 11/11/2019 11:30 AM EST Images from the original note were not included. [facility] [place] [address] [address] CARDIOVASCULAR MEDICINE OUTPATIENT CONSULTATION Jeremiah Savage [id number] 11/11/2019 REFERRING PROVIDER: Alber Garcia CHIEF COMPLAINT: Chief Complaint Patient presents with ??? Deep Vein Thrombosis ??? Pulmonary Embolism PROBLEM LIST Patient Active Problem List Diagnosis ??? Pulmonary embolism HISTORY OF PRESENT ILLNESS: Mr. Savage is a very pleasant 64 year old man with history of COPD and HTN whom I met when I was on hospital service and he presented with submassive PE. He presented with exertional fatigue, pleuritic chest pain, and dyspnea on exertion to outside hospital. On presentation, he was tachycardic with stable BP, ECG with S1Q3T3; CTA showed bilateral PE with RV strain. He was transferred [place] [facility] [place] where he had mildly elevated Troponin 0.02 and proBNP ~2600. TTE showed moderate RV dilationwith moderately reduced function and PASP 48 mm Hg. DVT duplex showed acute femoral vein DVT and chronic popliteal DVT. He felt significantly better on AC alone and thus advanced therapies not pursued. He was discharged on apixaban. I last saw him on 07/15/19. Since then, he has done quite well; he has completed pulmonary rehab. Heis able to climb 4 flights of stairs without chest pain or shortness of breath, which he was not able to do several months ago. Reports chronic RLE edema, not wearing compression despite our discussion during previous visit. He otherwise denies PND, orthopnea, pre-syncope, syncope, claudication, orsymptoms of TIA/stroke. TTE today showed mildly dilated RV with mildly reduced to low normal RV function. REVIEW OF SYSTEMS: All others negative except as stated in the HPI. No flowsheet data found. PAST MEDICAL HISTORY: Past Medical History: Diagnosis Date ??? COPD (chronic obstructive pulmonary disease) ??? Emphysema of lung ??? Fractures right ankle fractureas child ??? GERD (gastroesophageal reflux disease) ??? Hypertension ??? Lung disease SOCIAL HISTORY: Social History Tobacco Use ??? Smoking status: Former Smoker Packs/day: 1.50 Years: 40.00 Pack years: 60.00 Last attempt to quit: 11/17/2017 Years since quittin.9 ??? Smokeless tobacco: Never Used Substance Use Topics ??? Alcohol use: Not on file MEDICATIONS: Current Outpatient Medications Medication Sig Dispense Refill ??? apixaban (ELIQUIS) 5 mg Tablet Take [...] TABLET BY MOUTH EVERY DAY 3 ??? tiotropium-olodaterol (STIOLTO RESPIMAT) 2.5-2.5 mcg/actuation Mist Inhale 2 puffs into the lungs daily. 4 g 11 No current facility-administered medications for this visit. ALLERGIES: Patient has no known allergies. PHYSICAL EXAMINATION: Vital Signs: BP 106/78 (BP Location (NBP): Left arm, Patient Position: Sitting, BP Cuff Sizes: Adult (25-34 cm)) Pulse 67 Ht 180.3 cm (5' 11) Comment: reported Wt 90.7 kg (200 lb) Comment: reported BMI 27.89 kg/m?? Exam Details: General: Pleasant 64 y.o. man in no acute distress Eyes: No scleral icterus ENT: Moist mucous membranes Lymph: No cervical or supraclavicular lymphadenopathy Heart: Regular rate and rhythm, normal S1/S2, no murmurs/rubs/gallops appreciated, PMI non-displaced Lungs: Clear to ascultation bilaterally Abdomen: Soft, non-tender, non-distended, normoactive bowel sounds noted. No hepatosplenomegaly Extremities: 1+ RLE edema to knee. Trace LE dedema. No ulcerations noted. Vessels: No carotid bruits appreciated. Neuro: No gross abnormalities noted Psych: Alert and oriented 3 x, normal affect DATA PERSONALLY REVIEWED: Last 3 wbc, hgb, hct plt Recent Labs 06/25/19 0400 06/24/19 0605 06/23/19 2145 WBC 11.3* 7.9 9.5 HGB 12.3* 13.1* 14.2 HCT 38.6* 39.6* 43.3 PLATELET 255 262 297 Last 3 Lytes Recent Labs 06/25/19 0400 06/24/19 0605 06/23/19 2145 NA 138 138 136 K 4.7 4.6 4.7 CL 103 102 99 CO2 24 23 20* BUN 23* 17 14 CREATININE 1.10 1.03 1.09 EKG 06/23/19: NSR 90 bpm, S1Q3T3, anterior TWA ?? TTE 11/11/19: 1. The left ventricular chamber [...] probably borderline low normal at this point. TTE 07/15/19: 1. ??The left ventricular chamber size is [...] see remainder of report for additional findings. ?? DVT duplex 06/24/19: Interpretation: RIGHT: Acute (femoral vein very distal thigh) and chronic (popliteal) non-occlusive DVT. Cannot entirely exclude additional small, focal non-occlusive DVT in the upper calf due to suboptimal visualization. ?? LEFT: ??No evidence of lower extremity deep venous thrombosis. ASSESSMENT AND PLAN: #1 Submassive (intermediate-high risk) PE #2 RLE DVT, recurrent Mr. Savage is a very pleasant 64 year old man with history of HTN and COPD who presents for follow-up of submassive PE and RLE DVT in June 2019, which was conservatively managed and he has continued to do well. No symptoms at this point and is very active, able to climb 4 flights of stairs. TTE reassuring with improvement of RV size and function and given no significant symptoms, I do not think repeating TTE will be necessary unless he develops new symptoms. We discussed at length anticoagulation duration. He would like to come off anticoagulation if possible. His most recent event was provoked in the setting of hospitalization within 3 month but he alsohad prior provoked DVT after knee surgery. We discussed discussed the risks and benefits regarding long-term AC. We also discussed using d-dimer as possible risk stratification tool as well. I would like him to complete 1 year of full dose anticoagulation with apixaban 5 mg BID (until June 2020). A few days prior to seeing me in return visit in June 2020, he should stop apixaban and then get d-dimer prior to our visit. If this is normal, can discuss stopping AC and then using it only in high risk situations at prophylactic doses (during and post hospitalization, post-surgery, etc). If d-dimer elevated, would advocate for ongoing AC with low dose apixaban 2.5 mg BID. He agrees withthis plan. Plan: 1. Continue apixaban 5 mg BID until June 2020. 2. Few days prior to return visit with me in June 2020, stop apixaban and get d-dimer checked prior to visit. 3. He would like surgery on his finger - can stop apixaban 2 days prior to procedure and restart next day after procedure. 4. Again discussed use of RLE compression. 5. Return to clinic in June 2020. Thank you for allowing me to participate in the care of your patient. Please do not hesitate to contact me with any questions or concerns. Elkin Dixon MD, MPH, [facility] Cardiovascular Hot Wire Glass Tube CutterAcetone Button Pastersuperintendent [place] [address] documented in this encounter Plan of Treatment Upcoming Encounters Date Type Department Care Team (Late st Contact Info) Description 05/02/2024 11:00 AM EDT Office [place] [address] Cristian Carolina Jr., MD [facility] [place] [address] documented as of this encounter Visit Diagnoses Diagnosis Other acute pulmonary embolism with acute cor pulmonale Chronic deep vein thrombosis of right femoral vein 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
--- OUTSIDE RECORDS SUMMARY | 2024-04-21 15:17 | XMS_ITS | Encounter Summary ---
Author Organization [facility] [place] [address] [place] [address] Care Team Providers Care Medical Assisting Instructor Name Role Phone Susannah Malhotra MD Primary Care Provider Encounter Details Date Type Department Care Team (Late st Contact Info) Description 07/27/2020 Orders Only [place] [phone] Loreta Rothman, RN Right upper lobe pulmonary nodule; History of pulmonary embolus (PE) Social History [...] 11:00 AM EDT Office [place] [phone] Cristian Carolina Jr., MD [facility] [place] [address] documented as of this encounter Results * Creatinine (07/29/2020 9:18 AM EDT) Creatinine 1.16 0.80 - 1.50 mg/dL [facility] Estimated GFR 65 >=60 mL/min/1.7 3 m?? [facility] Comment: The eGFR was calculated using the CKD-EPI equation. As with all creatinine based estimates of kidney function, eGFR values calculated with the CKD-EPI equation are not accurate in patients with acute kidney failure, extremes of body mass or the acutely ill. http://[employer]/DHMCnkf eGFR 75 >=60 mL/min/1.7 3 m?? [facility] Comment: The eGFR was calculated using the CKD-EPI equation. As with all creatinine based estimates of kidney function, eGFR values calculated with the CKD-EPI equation are not accurate in patients with acute kidney failure, extremes of body mass or the acutely ill. http://[employer]/DHnkf Blood specimen (specimen) 07/29/2020 9:18 AM EDT 07/29/2020 9:27 AM EDT Narrative Resulting Agency Comment Spec In Lab Donal Wilkins MD CHEMISTRY ORDERABLE S Performing Organization Address City/State/[facility] Co de Phone Number [facility] [place] [address] documented in this encounter Visit Diagnoses Diagnosis Right upper lobe pulmonary nodule History of pulmonary embolus (PE) Personal history of pulmonary embolism documented in this encounter Care Teams Medical Assisting Instructor Relationship Specialty Start Date End Date Susannah Malhotra MD [address] [place] [address] PCP - General Family Medicine 04/22/20 documented as of this encounter
--- OUTSIDE RECORDS SUMMARY | 2024-04-21 15:17 | XMS_ITS | Encounter Summary ---
Author Organization [facility] [place] [place] [address] Care Team Providers Care Instructor Psychiatric Aide Name Role Phone Susannah Malhotra MD Primary Care Provider [phone] Encounter Details Date Type Department Care Team (Late st Contact Info) Description 04/22/2020 [place] [address] Nini Joseph Social History Tobacco Use Types [...] 11:00 AM EDT [place] [address] Cristian Carolina Jr., MD [facility] [place] [address] documented as of this encounter Visit Diagnoses Not on filedocumented in this encounter Care Teams Instructor Psychiatric Aide Relationship Specialty Start Date End Date Susannah Malhotra MD [address] [place] [address] PCP - General Family Medicine 04/22/20 documented as of this encounter
--- OUTSIDE RECORDS SUMMARY | 2024-04-21 15:17 | XMS_ITS | Encounter Summary ---
Author Organization [facility] [place] [place] [address] Care Team Providers Care Appliance Counselor Name Role Phone Susannah Malhotra MD Primary Care Provider [phone] Encounter Details Date Type Department Care Team (Late st Contact Info) Description 04/23/2020 Telephone [place] [address] Nini Joseph Social History Tobacco Use Types [...] 11:00 AM EDT Office Visit [place] [address] Cristian Carolina Jr., MD [facility] [address] [place] [address] documented as of this encounter Visit Diagnoses Not on filedocumented in this encounter Care Teams Appliance Counselor Relationship Specialty Start Date End Date Susannah Malhotra MD [address] [place] [address] PCP - General Family Medicine 04/22/20 documented as of this encounter
--- OUTSIDE RECORDS SUMMARY | 2024-04-21 15:17 | XMS_ITS | Encounter Summary ---
Author Organization [facility] [place] [address] Care Team Providers Care Sample Dye Mixer Name Role Phone Susannah Malhotra MD Primary Care Provider [phone] Reason for Referral * Diagnostic Test (Routine) - Closed Specialty Diagnoses / Procedures Referred By Contgillian t Referred To Contact Radiology Diagnoses Right upper lobe pulmonary nodule Procedures CT Chest w Contrast Donal Wilkins MD [facility] [place] [address] [facility] [place] [address] Referral ID Status Reason Start Date Expiration Date V isits Requested Visits Authorized [id number] Closed Specialty Service Requested 04/30/2020 10/31/2021 1 1 Reason for Visit * Reason Comments Nodule * Consultation (Urgent) - Specialty Diagnoses / Procedures Referred By Contac t Referred To Contact Thoracic Surgery Diagnoses Lung nodule Ex-smoker Russel Younger MD [facility] [place] [address] Kang Connor MD [facility] [place] [address] Referral ID Status Reason Start Date Expiration Date V isits Requested Visits Authorized [id number] Consult, Test & Treat 04/22/2020 04/22/2021 1 1 Encounter Details Date Type Department Care Team (Late st Contact Info) Description 04/29/2020 1:00 PM EDT Office Visit [place] [address] Donal Wilkins MD [facility] [place] [address] Right upper lobe pulmonary nodule; Panlobular emphysema; [...] Sign Reading Time Taken Comments Blood Pressure 113/79 04/29/2020 12:56 PM EDT Pulse 72 04/29/2020 12:56 PM EDT Temperature 36.4 ??C (97.5 ??F) 04/29/2020 12:56 PM E DT Respiratory Rate 16 04/29/2020 12:56 PM EDT Oxygen Saturation 98% 04/29/2020 12:56 PM EDT Inhaled Oxygen Concentration - - Weight 99.5 kg (219 lb 6.4 oz) 04/29/2020 12:56 PM EDT Height 179 cm (5' 10.47) 04/29/2020 12:56 PM ED T Body Mass Index 31.06 04/29/2020 12:56 PM EDT documented in this encounter Patient Instructions * Patient Instructions* Loreta Rothman RN - 04/29/2020 1:00 PM EDT Thank you for visiting Dr. Wilkins in clinic 04/29/2020 Dr. Wilkins would like to see you back in clinic in 3 months with a recent CT scan of your chest with IV contrast. You will receive a letter in the mail/ receive a call to schedule this appointment. Incentive Spirometer: Use your incentive spirometer as you were shown in clinic: 6 times daily/10 breaths each time. You may also bundle the use of [...] encourage you to breathe deeply and fully. Please bring your incentive spirometer to the hospital with you on the day of surgery. You willuse the incentive spirometer as part of your recovery process and to prevent complications such as pneumonia. ?? Exercise each day for 30 minutes or longer. Daily aerobic exercise for at least 30 minutes will help improve your endurance and improve the breathing capacity of your lungs. This means that you are breathing hard, your heart is beating fast and that you are sweating. Examples of this include walking, biking, swimming, and using a treadmill or stationary bike. Please call Thoracic surgery at with any questions or concerns. documented in this encounter H&P Notes * Vinita Lakhani - 04/29/2020 1:00 PM EDT Thoracic Surgery Student Outpatient Consultation Note Vinita Lakhani [place] [address] FAX: Referring Provider: Russel Younger MD [facility] [place] [address] Reason for Consultation: RUL nodule Mr. Savage is a 65 y.o. male with a 1.7cm right upper lobe nodule found on CT obtained following two episodes in early 04/26 in which he coughed up a small amount of black sputum. We have personally reviewed the following scans and results that are part of the work up, including: PET (04/29/20) IMPRESSION 1. An approximately 15 mm FDG avid ill-defined semisolid opacity in the inferior right upper lobe, not present on prior CT of 06/23/2019 and with an appearance more suggestive of an interval inflammatory lesion. A neoplastic etiology is not excluded. 2. No evidence [...] workup of for possible prostatic neoplasm. 4. Diffuse esophageal activity, likely an esophagitis. Pulmonary function tests on 04/29/20 showed an FVC of 3.84L, 90% of predicted; and FEV1 of 1.98L, 61% predicted; and a DLCO of 8.61mL/min/mmHg, 33% predicted. He denies fevers, night sweats, or chest pain on exertion. He denies weight loss. He reports fatigue and intermittent productive cough that typically brings up clear sputum but that brought up black sputum 2x ~1month ago. He is able to walk up 1 flight of stairs without difficulty. A 14-point review of systems is otherwise negative, except where noted above. He has a past medical history of COPD (chronic obstructive pulmonary disease), Emphysema of lung, Fractures, GERD (gastroesophageal reflux disease), Hypertension, Lung disease, and Sleep apnea. 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 He has a past surgical history that includes joint replacement (, 1989). He has a current medication list which includes the following prescription(s): flovent hfa, apixaban, umeclidinium-vilanterol, proair hfa, and lisinopril. He has No Known Allergies. His family history includes Aneurysm in his mother; Cancer in his paternal uncle; Chronic Obstructive Pulmonary Disease in his mother; Heart Disease in his father; Hypertension in his father; Leukemia in his paternal uncle. A review of his social history shows: Social History Tobacco Use ??? Smoking status: Former Smoker Packs/day: 1.50 Years: 40.00 Pack years: 60.00 Last attempt to quit: 11/17/2017 Years since quittin.4 ??? Smokeless tobacco: Never Used Substance Use Topics ??? Alcohol use: Not on file On examination, Mr. Savage is a well nourished, well-developed male. He is alert and oriented. Vital Signs: BP 113/79 (Patient Position: Sitting) Pulse 72 Temp 36.4 ??C (97.5 ??F) (Temporal) Resp 16 Ht 179 cm (5' 10.47) Wt 99.5 kg (219 lb 6.4 oz) SpO2 98% BMI 31.06 kg/m?? Body mass index is 31.06 kg/m??. His pulse is regular, breathing is unlabored and temperature is afebrile. In general he is in no acute distress. His pupils are reactive. His sclera are anicteric. Hehas no palpable cervical or supraclavicular adenopathy. The lung reid are coarse to auscultation bilaterally.Heart rate and rhythm are normal, and there is no murmur. The abdomen is soft and nontender. There is no significant peripheral edema, cyanosis, or clubbing of the extremities. Pulses are full and equal bilaterally at the wrists. Neurologic examination is grossly intact. Musculoskelatal exam is grossly intact with 5/5 strength. His skin is non-jaundiced. In summary, Mr. Savage is a 65 y.o. male with a 1.7cm right upper lobe lung nodule. Given the findings of his PET and prior CT scans, this is likely an inflammatory/infectious nodule given the significant size with no prior nodule in this area on his CT from 06/23/20. Given his pulmonary history, pulmonary embolism on Apixaban, and most recent PFTs, we have recommended against proceeding with a biopsy or resection at this time. We have recommend that he have a short course of antibiotics and get a follow up CT in 10-12 weeks. He asked appropriate questions and would like to proceed. We have asked Mr. Savage to begin a regular exercise regiment that involves dedicated walking 30-60 minutes per day, 6 days per week, or some equivalent form of exercise/activity. We have provided him with an incentive spirometer and instructed him on its use, asking him to use it several times a day. We will consult with Dr. Russel Younger to select an appropriate antibiotic for Mr Savage and a follow up CT will be scheduled in 10-12 weeks. If he should have any further questions or concerns, he should feel free to contact us. Vinita Lakhani MS3 I have seen the patient and reviewed the medical student's above history and I agree with the details as written. The assessment and plan were formulated in discussion with me and I agree with them as documented. I have edited the note where appropriate. Please see my separate note for further details. Donal Wilkins MD 04/30/2020 * Donal Wilkins MD - 04/29/2020 1:00 PM EDT Thoracic Surgery Attending Outpatient Consultation Note Donal Wilkins MD [place], [place] [address] Referring Provider: Russel Younger MD [facility] Dr Pulmonary Medicine [place] [phone] Reason for Consultation: RUL nodule Today, 04/29/2020, I saw Mr. Savage in the Thoracic [place] [facility] [place] [facility] [place] for a Right upper lobe lung nodule at your request. His history was obtained from the patient. We have also reviewed his medical records and imaging prior to today's visit. As you know, Mr. Savage is a 65 y.o. male with a 1.7cm right upper lobe nodule found on CT obtained following two episodes in early in which he coughed up a small amount of black sputum. This has resolved. I have personally reviewed the following scans and results that are part of the work up, including: PET/CT (04/29/20) IMPRESSION 1. An approximately 15 mm FDG avid ill-defined semisolid opacity in the inferior right upper lobe, not present on prior CT of 06/23/2019 and with an appearance more suggestive of an interval inflammatory lesion. A neoplastic etiology is not excluded. 2. No evidence [...] workup of for possible prostatic neoplasm. 4. Diffuse esophageal activity, likely an esophagitis. CT Chest w contrast at [facility] (04/15/20) 1.7 x 1.4cm nodule in the right upper lobe above the major fissure, new since exam of 06/23/20. CTA Chest 06/23/2019 multiple pulmonary emboli noted bilaterally, marked bilateral emphysema, no adenopathy Pulmonary function tests on 04/29/20 showed an FVC of 3.84L, 90% of predicted; and FEV1 of 1.98L, 61% predicted; and a DLCO of 8.61mL/min/mmHg, 33% predicted. He denies fevers, night sweats, or chest pain on exertion. He denies weight loss. He reports fatigue and intermittent productive cough that typically brings up clear sputum but that brought up black sputum 2x ~1month ago. He is able to walk up 1 flight of stairs without difficulty. A 14-point review of systems is otherwise negative, except where noted above. He has a past medical history of COPD (chronic obstructive pulmonary disease), Emphysema of lung, Fractures, GERD (gastroesophageal reflux disease), Hypertension, Lung disease, and Sleep apnea. 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 He has a past surgical history that includes joint replacement (Right, 1989). He has a current medication list which includes the following prescription(s): flovent hfa, apixaban, umeclidinium-vilanterol, proair hfa, and lisinopril. He has No Known Allergies. His family history includes Aneurysm in his mother; Cancer in his paternal uncle; Chronic Obstructive Pulmonary Disease in his mother; Heart Disease in his father; Hypertension in his father; Leukemia in his paternal uncle. A review of his social history shows: Social History Tobacco Use ??? Smoking status: Former Smoker Packs/day: 1.50 Years: 40.00 Pack years: 60.00 Last attempt to quit: 11/17/2017 Years since quittin.4 ??? Smokeless tobacco: Never Used Substance Use Topics ??? Alcohol use: Not on file On examination, Mr. Savage is a well nourished, well-developed male. He is alert and oriented. Vital Signs: BP 113/79 (Patient Position: Sitting) Pulse 72 Temp 36.4 ??C (97.5 ??F) (Temporal) Resp 16 Ht 179 cm (5' 10.47) Wt 99.5 kg (219 lb 6.4 oz) SpO2 98% BMI 31.06 kg/m?? Body mass index is 31.06 kg/m??. His pulse is regular, breathing is unlabored and temperature is afebrile. In general he is in no acute distress. His pupils are reactive. His sclera are anicteric. Hehas no palpable cervical or supraclavicular adenopathy. The lung reid are coarse to auscultation bilaterally.Heart rate and rhythm are normal, and there is no murmur. The abdomen is soft and nontender. There is no significant peripheral edema, cyanosis, or clubbing of the extremities. Pulses are full and equal bilaterally at the wrists. Neurologic examination is grossly intact. Musculoskelatal exam is grossly intact with 5/5 strength. His skin is non-jaundiced. In summary, Mr. Savage is a 65 y.o. male with a 1.7cm right upper lobe lung nodule. We have discussed the differential diagnosis including primary lung cancer or benign lung nodule. Given the findings of his PET and prior CT scans, this is likely an inflammatory/infectious nodule given the significant size with no prior nodule in this area on his CT from 06/23/20. We have discussed options including observation/surveillance, antibiotics, percutaneous or bronchoscopic biopsy, or surgical resection. Given his pulmonary history with significant COPD, pulmonary embolism on Apixaban, and most recent PFTs, and location and semi-solid composition of the nodule we have recommended against proceeding with a biopsy or resection at this time. We have recommend that he a short course of antibiotics and get a follow up CT in 10-12 weeks. We have asked Mr. Savage to begin a regular exercise regiment that involves dedicated walking 30-60 minutes per day, 6 days per week, or some equivalent form of exercise/activity. We have provided him with an incentive spirometer and instructed him on its use, asking him to use it several times a day. We will consult with Dr. Younger to select an appropriate antibiotic for him and a follow up CT willbe scheduled in 10-12 weeks. If he should have any further questions or concerns, he should feel free to contact us. Donal Wilkins MD 04/29/2020 documented in this encounter Plan of Treatment Upcoming Encounters Date Type Department Care Team (Late st Contact Info) Description 05/02/2024 11:00 AM EDT Office [place] [address] Cristian Carolina Jr., MD [facility] [place] [address] documented as of this encounter Results * (ABNORMAL) CT Chest w Contrast (07/29/2020 10:43 AM EDT) Anatomical Region Laterality Modality Chest Computed Tomogra phy Impressions 07/29/2020 11:53 AM EDT 1. ??Resolution of previously noted right upper lobe pulmonary nodule. 2. ??New from prior curvilinear band of groundglass opacity in the left lingula, likely related to atelectasis. 3. ??Moderate centrilobular emphysema. 4. ??Unexpected Finding: Focal nodular thickening at the gallbladder fundus, likely related to adenomyomatosis. ??Further evaluation with ultrasound of the right upper quadrant is recommended for diagnostic confirmation. Thank you for letting us participate in the care of this patient. For questions regarding this report, please contact the number below. ? Narrative 07/29/2020 11:53 AM EDT EXAMINATION: CT CHEST W CONTRAST CLINICAL HISTORY: 65-year-old male with 1.7 cm semisolid nodule in the right upper lobe. ??Follow-up examination. ??History of chronic obstructive pulmonary disease and PE. ??Lung nodule greater than 8 mm. ??Follow-up. TECHNIQUE: 3.75mm thick axial contiguous sections were obtained through the chest via helical acquisition after the intravenous administration of contrast, the patient received 60 mL Omnipaque 350 intravenous contrast.. Thin-section reconstructions as well as coronal and sagittal reformatted images were generated. COMPARISON: Comparison is made to multiple prior CT of the chest examinations, the most recent which is dated April 15, 2020. FINDINGS: Instructor Physical Images: Noncontributory. Pulmonary parenchyma: There is moderate centrilobular emphysema with an apical predominance. ??The previously noted irregular pulmonary nodule within the posterior right upper lobe, abutting the major fissure, has resolved. ??There is a new from prior curvilinear band of atelectasis within the lingula. Airways: The central airways are normal in course and caliber. ??There is no endobronchial or endotracheal lesion. Pleura: There is no pleural effusion or pneumothorax. Lymph nodes:There are no pathologically enlarged lymph nodes. Heart, pericardium, and great vessels: Cardiac size is within normal limits. There is mild to moderate multifocal arthroscopic calcification within the coronary arteries. ??This is most pronounced within the left anterior descending coronary artery. ??The aorta is normal in course and caliber. ??There is mild atherosclerotic calcific aeration of the aortic arch. ??The pulmonary arteries are normal in course and caliber. Other mediastinal structures: Evaluation of the esophagus is unremarkable. Lower neck: Visualized structures within the inferior neck are unremarkable. Upper abdomen: There is a stable cyst within the inferior right hepatic lobe. There is focal nodular thickening at the gallbladder fundus, measuring 12 x 8 mm, stable dating back to November 28, 2017. ??There is mild atrophy of the pancreas. ??There are a few calcified nodules within the spleen, likely related to prior granulomatous disease. Body wall soft tissues: No significant findings. Skeletal structures: There are no suspicious osseous lesions. ??There are degenerative changes of the visualized spine with endplate sclerosis and osteophyte formation. Resulting Agency Comment Unexpected Finding Donal Wilkins MD IMG CT ORDERABLES documented in this encounter Visit Diagnoses Diagnosis Right upper lobe pulmonary nodule Panlobular emphysema Other emphysema History of pulmonary embolus (PE) Personal history of pulmonary embolism Right upper lobe pulmonary nodule documented in this encounter Care Teams Sample Dye Mixer Relationship Specialty Start Date End Date Susannah Malhotra MD [address] [place] [id number] PCP - General Family Medicine 04/22/20 documented as of this encounter
--- OUTSIDE RECORDS SUMMARY | 2024-04-21 15:17 | XMS_ITS | Encounter Summary ---
Author Organization [facility] [place] [address] [place] [address] Care Team Providers Care Applied Behavior Specialist Name Role Phone Alber Garcia MD Primary Care Provider [phone] Encounter Details Date Type Department Care Team (Late st Contact Info) Description 06/23/2019 7:15 PM EDT Ancillary Procedure [place] [address] Alber Rivas MD [facility] [place] [address] Social History Tobacco Use Types Packs/Day Years [...] 11:00 AM EDT Office [place] [phone] Cristian Carolina Jr., MD [facility] [address] documented as of this encounter Procedures Procedure Name Priority Date/Time Associated Diagnosis Comments FILM LIBRARY STORAGE ONLY CT CHEST Routine 06/23/2019 7:13 PM EDT documented in this encounter Results * Film Library- Storage Only CT Chest (06/23/2019 7:13 PM EDT) Narrative AMILCAR - 06/23/2019 7:13 PM EDT This exam is auto-finalizing. It's purpose is for storage only. Alber Rivas MD IMG FILM LIBRARY ORD ERABLES Performing Organization Address City/State/[facility] Co de Phone Number [place], [place] documented in this encounter Visit Diagnoses Not on filedocumented in this encounter Care Teams Applied Behavior Specialist Relationship Specialty Start Date End Date Alber Garcia MD PCP - General General Internal Medicine 12/12/18 documented as of this encounter
--- OUTSIDE RECORDS SUMMARY | 2024-04-21 15:17 | XMS_ITS | Encounter Summary ---
Author Organization [facility] [place] [address] [place] [address] Care Team Providers Care Housing Development Specialist Name Role Phone Susannah Malhotra MD Primary Care Provider [phone] Encounter Details Date Type Department Care Team (Late st Contact Info) Description 06/22/2020 Telephone [place] [address] Paulette Parks Social History Tobacco Use Types Packs/Day Years Used Date Smoking Tobacco: Former Cigarettes 1.5 40 0 11/17/1977 - 11/17/2017 Smokeless Tobacco: Never Sex and Gender Information Value Date Recorded Sex Assigned at Not on file Gender Identity Not on file Sexual Orientation Not on file documented as of this encounter Miscellaneous Notes * Telephone Encounter - Paulette Parks - 06/22/2020 9:30 AM EDT Recall: Destiny 8mo f/up, no studies 06/22/2020 home # d/c, cell phone woman's message, sending letter attempt x1 MK documented in this encounter Plan of Treatment Upcoming Encounters Date Type Department Care Team (Late st Contact Info) Description 05/02/2024 11:00 AM EDT Office [place] [phone] Cristian Carolina Jr., MD [facility] [place] [address] documented as of this encounter Visit Diagnoses Not on filedocumented in this encounter Care Teams Housing Development Specialist Relationship Specialty Start Date End Date Susannah Malhotra MD [address] [place] [address] PCP - General Family Medicine 04/22/20 documented as of this encounter
--- OUTSIDE RECORDS SUMMARY | 2024-04-21 15:17 | XMS_ITS | Encounter Summary ---
[place] [address] Care Team Providers Care Infrastructure Technician Name Role Phone Alber Garcia MD Primary Care Provider [phone] Encounter Details Date Type Department Care Team (Late Contact Info) Description 02/21/2019 Tele[place] [phone] Heidi Bo RT Social History Tobacco Use Types Packs/Day Years Used Date Smoking Tobacco: Former Cigarettes 1.5 40 0 11/17/1977 - 11/17/2017 Smokeless Tobacco: Never Sex and Gender Information Value Date Recorded Sex Assigned at Not on file Gender Identity Not on file Sexual Orientation Not on file documented as of this encounter Miscellaneous Notes * Telephone Encounter - Heidi Bo RT - 02/21/2019 8:58 AM EDT Called Jeremiah Hussein On his cellphone in follow up to his call requesting pulmonary rehab sent to [facility] in [facility], forwarded pulm rehab referral to [facility] in [facility] and provided contact information for [facility] pulmonary rehab program documented in this encounter Plan of Treatment Upcoming Encounters Date Type Department Care Team (Late Contact Info) Description 05/02/2024 11:00 AM EDT Office [place] [address] Cristian Carolina Jr., MD [facility] [place] [address] documented as of this encounter Visit Diagnoses Not on filedocumented in this encounter Care Teams Infrastructure Technician Relationship Specialty Start Date End Date Alber Garcia MD PCP - General General Internal Medicine 12/12/18 documented as of this encounter
--- OUTSIDE RECORDS SUMMARY | 2024-04-21 15:17 | XMS_ITS | Encounter Summary ---
Author Organization [facility] [place] [address] Care Team Providers Care Underwear Cutter Name Role Phone None Primary Care Provider Unavailabl e Encounter Details Date Type Department Care Team (Late st Contact Info) Description 04/16/2020 Telephone [place] [address] Maryjane Fields LNA Social History Tobacco Use Types Packs/Day Years Used Date Smoking Tobacco: Former Cigarettes 1.5 40 0 11/17/1977 - 11/17/2017 Smokeless Tobacco: Never Sex and Gender Information Value Date Recorded Sex Assigned at Not on file Gender Identity Not on file Sexual Orientation Not on file documented as of this encounter Miscellaneous Notes * Telephone Encounter - Maryjane Fields LNA - 04/16/2020 1:33 PM EDT Call from Dr. Malhotra's office asking to schedule f/u with Dr. Younger for pt as soon as possible. Pthad CT scan and there is a new mass. Scheduled for 04/22. They will let pt know date,time,location. There will have the CT images pushed to us and will fax the report. documented in this encounter Plan of Treatment Upcoming Encounters Date Type Department Care Team (Late st Contact Info) Description 05/02/2024 11:00 AM EDT Office [place] [address] Cristian Carolina Jr., MD [facility] DR [place] [address] documented as of this encounter Visit Diagnoses Not on filedocumented in this encounter Care Teams Underwear Cutter Relationship Specialty Start Date End Date None None PCP - General 11/11/19 04/21/20 documented as of this encounter
--- OUTSIDE RECORDS SUMMARY | 2024-04-21 15:17 | XMS_ITS | Encounter Summary ---
Author Organization [facility] [place] [address] Care Team Providers Care Senior Web Designer Name Role Phone None Primary Care Provider Unavailabl e Encounter Details Date Type Department Care Team (Late st Contact Info) Description 11/11/2019 Orders [place] [address] Elkin Dixon MD [facility] [place] [address] Other acute pulmonary embolism with acute cor [...] 11:00 AM EDT Office [place] [address] Cristian Carolina Jr., MD [facility] [place] [address] documented as of this encounter Visit Diagnoses Diagnosis Other acute pulmonary embolism with acute cor pulmonale documented in this encounter Care Teams Senior Web Designer Relationship Specialty Start Date End Date None None PCP - General 11/11/19 04/21/20 documented as of this encounter
--- OUTSIDE RECORDS SUMMARY | 2024-04-21 15:17 | XMS_ITS | Encounter Summary ---
Author Organization [facility] [place] [address] Care Team Providers Care Sports Physiologist Name Role Phone Susannah Malhotra MD Primary Care Provider [phone] Encounter Details Date Type Department Care Team (Latest Contact Info) Description 07/29/2020 9:30 AM EDT Laboratory Appointment Lab [address] [place] [address] Right upper lobe pulmonary nodule; History of [...] AM EDT Office [place] [address] Cristian Carolina Jr., MD [facility] [place] [address] documented as of this encounter Procedures Procedure Name Priority Date/Time Associated Diagnosis Comments HC CREATININE STAT 07/29/2020 9:18 AM EDT Right upper lobe pulmonary nodule History of pulmonary embolus (PE) documented in this encounter Results * Creatinine (07/29/2020 9:18 AM EDT) Creatinine 1.16 0.80 - 1.50 mg/dL [facility] Estimated GFR 65 >=60 mL/min/1.7 3 m?? [facility] Comment: The eGFR was calculated using the CKD-EPI equation. As with all creatinine based estimates of kidney function, eGFR values calculated with the CKD-EPI equation are not accurate in patients with acute kidney failure, extremes of body mass or the acutely ill. [email or web address] eGFR 75 >=60 mL/min/1.7 3 m?? [facility] Comment: The eGFR was calculated using the CKD-EPI equation. As with all creatinine based estimates of kidney function, eGFR values calculated with the CKD-EPI equation are not accurate in patients with acute kidney failure, extremes of body mass or the acutely ill. [email or web address] Blood specimen (specimen) 07/29/2020 9:18 AM EDT 07/29/2020 9:27 AM EDT Narrative Resulting Agency Comment Spec In Lab Donal Wilkins MD CHEMISTRY ORDERABLE S [facility] [place] [address] documented in this encounter Visit Diagnoses Diagnosis Right upper lobe pulmonary nodule History of pulmonary embolus (PE) Personal history of pulmonary embolism documented in this encounter Care Teams Sports Physiologist Relationship Specialty Start Date End Date Susannah Malhotra MD [address] [place] [address] PCP - General Family Medicine 04/22/20 documented as of this encounter
--- OUTSIDE RECORDS SUMMARY | 2024-04-21 15:17 | XMS_ITS | Encounter Summary ---
[place] [address] Care Team Providers Care Supervisor Silvering Department Name Role Phone Susannah Malhotra MD Primary Care Provider [phone] Reason for Visit * Reason Onset Date Comments Other 04/30/2020 script for Augme ntin Encounter Details Date Type Department Care Team (Late st Contact Info) Description 04/30/2020 Telephone [place] [address] Loreta Rothman, RN Other (script for Augmentin) Social History Tobacco Use Types Packs/Day Years Used Date Smoking Tobacco: Former Cigarettes 1.5 40 0 11/17/1977 - 11/17/2017 Smokeless Tobacco: Never Sex and Gender Information Value Date Recorded Sex Assigned at Not on file Gender Identity Not on file Sexual Orientation Not on file documented as of this encounter Miscellaneous Notes * Telephone Encounter - Loreta Rothman, RN - 04/30/2020 11:23 AM EDT TC to Mr. Savage Hx: RUL lung nodule Mr. Savage is aware of script for Augmentin 500/125, three times a day for 7 days. Script sent to [facility] in [facility]. Mr. Savage stated that he did cough up some black stuff again this morning with his second cough. Dr. Wilkins said that there may be an infection in my lungs which is why I am coughing this stuffup. Explained that is why he is going to get this medication. He verbalized understanding and knows to call with any questions or concerns. He was grateful for the call documented in this encounter Plan of Treatment Upcoming Encounters Date Type Department Care Team (Late st Contact Info) Description 05/02/2024 11:00 AM EDT [place] [address] Cristian Carolina Jr., MD [facility] [address] [place] [address] documented as of this encounter Visit Diagnoses Not on filedocumented in this encounter Care Teams Supervisor Silvering Department Relationship Specialty Start Date End Date Susannah Malhotra MD [address] [place] [address] PCP - General Family Medicine 04/22/20 documented as of this encounter
--- OUTSIDE RECORDS SUMMARY | 2024-04-21 15:17 | XMS_ITS | Encounter Summary ---
[place] [address] Care Team Providers Care Water Pollution Control Inspector Name Role Phone Susannah Malhotra MD Primary Care Provider [phone] Encounter Details Date Type Department Care Team (Latest Contact Info) Description 04/29/2020 7:14 AM EDT - 04/29/2020 7:41 AM EDT Hospital En[place] [address] Lung nodule; Stage 2 moderate COPD by GOLD classification Discharge Disposition: Home Social History Tobacco Use [...] 5 mg by mouth daily. 3 06/26/2018 Flovent HFA 220 mcg/actuation HFA Aerosol Inhaler 12/29/2019 05/23/2021 apixaban (ELIQUIS) 5 mg Tablet Take 2 tablets by mouth 2 times daily for 6 days, THEN 1 tablet 2 times daily. 90 tablet 3 06/25/2019 03/26/2022 umeclidinium-vilantero l (ANORO ELLIPTA) 62.5-25 mcg/actuation Disk with DeviceIndications:Cold Header Operator ben obstructive pulmonary disease, unspecified COPD type Inhale 1 Inhalation into the lungs daily. 60 each 5 01/07/2019 06/13/2023 PROAIR HFA 90 mcg/actuation HFA Aerosol Inhaler INHALE TWO PUFFS BY MOUTH EVERY 6 HOURS NEEDED 98 08/01/2018 04/10/2022 documented as of this encounter Procedure Notes * Fantasma Mcmullen MD - 04/29/2020 7:41 AM EDTAssociated Order(s): PULMONARY FUNCTION TEST FVC within normal limits. FEV1, FEV1/FVC are low. Diffusing capacity low. IMPRESSION: Obstructive lung disease. documented in this encounter Plan of Treatment Upcoming Encounters Date Type Department Care Team (Late st Contact Info) Description 05/02/2024 11:00 AM EDT Office [place] [address] Cristian Carolina Jr., MD [facility] [place] [address] documented as of this encounter Procedures Procedure Name Priority Date/Time Associated Diagnosis Comments COMMON PULMONARY FUNCTION TEST Routine 04/29/2020 7:41 AM EDT Lung nodule Stage 2 moderate COPD by GOLD classification documented in this encounter Results * Pulmonary Function Testing (04/29/2020 7:41 AM [...] classification documented in this encounter Care Teams Water Pollution Control Inspector Relationship Specialty Start Date End Date Susannah Malhotra MD [address] [place] [address] PCP - General Family Medicine 04/22/20 documented as of this encounter
--- OUTSIDE RECORDS SUMMARY | 2024-04-21 15:17 | XMS_ITS | Encounter Summary ---
[place] [address] Care Team Providers Care Welt Sole Layer Name Role Phone Alber Garcia MD Primary Care Provider [phone] Reason for Referral * Diagnostic Test (Routine) - Closed Specialty Diagnoses / Procedures Referred By Contac t Referred To Contact Cardiology Diagnoses Acute septic pulmonary embolism with acute cor pulmonale Procedures Echocardiogram Transthoracic([facility]) Lani Caldwell MD [facility] [place] [address] [facility] [place] [address] Referral ID Status Reason Start Date Expiration Date V isits Requested Visits Authorized [id number] Closed Specialty Service Requested 06/25/2019 06/24/2020 1 1 Reason for Visit * Diagnostic Test (Routine) - Closed Specialty Diagnoses / Procedures Referred By Contac t Referred To Contact Cardiology Diagnoses Acute septic pulmonary embolism with acute cor pulmonale Procedures Echocardiogram Transthoracic([facility]) Lani Caldwell MD [facility] [place] [address] [facility] [place] [address] Referral ID Status Reason Start Date Expiration Date V isits Requested Visits Authorized [id number] Closed Specialty Service Requested 06/25/2019 06/24/2020 1 1 Encounter Details Date Type Department Care Team (Latest Contact Info) Description 07/15/2019 8:39 AM EDT - 07/15/2019 11:59 PM EDT Hospital Encounter Non-[place] [address] Acute septic pulmonary embolism with acute cor [...] daily. 11/11/2019 documented as of this encounter Plan of Treatment Upcoming Encounters Date Type Department Care Team (Late st Contact Info) Description 05/02/2024 11:00 AM EDT Office [place] [address] Cristian Carolina Jr., MD [facility] [place] [address] documented as of this encounter Procedures Procedure Name Priority Date/Time Associated Diagnosis Comments ECHO COMPLETE W CONTRAST Routine 07/15/2019 10:15 AM EDT Acute septic pulmonary embolism with acute cor pulmonale documented in this encounter Results * ECHO COMPLETE W CONTRAST (07/15/2019 10:15 AM EDT) EF 65 HEARTLAB SYSTEM Anatomical Region Laterality Modality Other 07/15/2019 Narrative 07/15/2019 10:37 AM EDT Procedure: ?Transthoracic Echocardiogram Patient: ?SAWYER SANDERS ?(Age): 1955(64y) Med Rec#: ? [id number] ?Sex: ?M ? Site Loc: ? Ht / Wt: ??180(cm)/95.26(k Pt. Loc: ?Echo Lab ?BSA: ?2.15 Study Date: ?? 07/15/2019 ?Pt. Type: Inpatient Tape: ? Referring: MISRASHANTUM Reading: Doe Yip ([id number]) Industrial Services Worker: Fantasma Eaton MS, RDCS Diagnosis: *Other pulmonary embolism with acute cor [...] E-wave Vmax ?0.6 ?m/sec ? MV deceleration [id number] ?msec ? MV A-wave Vmax ?0.5 ?m/sec [...] ? Mid-Inferior ?Normal ? Mid-Inferoseptal ?Normal ? [place]-Septal ? Normal ? [place]-Anterior ? Normal ? [place]-Lateral ?Normal ? [place]-Inferior ? Normal ? [place]-Tip ?Normal ? This report has been electronically signed by: Doe Yip MD ? 07/15/2019 10:37:13 Images reviewed and interpretation verified [facility] Cardiac Ultrasound Laboratory Procedure Note Doe Yip MD - 07/15/2019 Procedure: Transthoracic Echocardiogram Patient: SAWYER WHITAKER(Age): 1955(64y) Med Rec#: [id number] Sex: M Site Loc: Ht / Wt: 180(cm)/95.26(k Pt. Loc: Echo Lab BSA: 2.15 Study Date: 07/15/2019 Pt. Type: Inpatient Tape: [facility] Reading: Doe Yip ([id number]) Industrial Services Worker: Fantasma Eaton MS, [facility] Diagnosis: *Other pulmonary embolism with acute cor [...] MV E-wave Vmax 0.6 m/sec MV deceleration [id number] msec MV A-wave Vmax 0.5 m/sec MV [...] Normal Mid-Posterolateral Normal Mid-Inferior Normal Mid-Inferoseptal Normal [place]-Septal Normal [place]-Anterior Normal [place]-Lateral Normal [place]-Inferior Normal [place]-Tip Normal This report has been electronically signed by: Doe Yip MD 07/15/2019 10:37:13 Images reviewed and interpretation verified [facility] Cardiac Ultrasound Laboratory Elkin Dixon MD ECHO ORDERABLES documented in this encounter Visit Diagnoses Diagnosis Acute septic pulmonary embolism with acute cor pulmonale documented in this encounter Administered Medications Inactive Administered Medications - up to 3 most recent administrations Medication Order MAR Action Action Date Dose Rate Site perflutren lipid microspheres (DEFINITY) injection 1.3 mL 1.3 mL, Intravenous, ONCE PRN, 1 dose, Starting on Sun07/15/19 at 1015, Until Sun07/15/19 at 0946, PRN, Routine Given 07/15/2019 9:46 AM EDT 1.3 mLs documented in this encounter Care Teams Welt Sole Layer Relationship Specialty Start Date End Date Alber Garcia MD PCP - General General Internal Medicine 12/12/18 documented as of this encounter
--- OUTSIDE RECORDS SUMMARY | 2024-04-21 15:17 | XMS_ITS | Encounter Summary ---
[place] [address] Care Team Providers Care Software Support Engineer Name Role Phone Susannah Malhotra MD Primary Care Provider [phone] Reason for Visit * Reason Onset Date Comments Other 07/29/2020 Encounter Details Date Type Department Care Team (Late st Contact Info) Description 07/29/2020 Telephone [place] [address] Loreta Rothman RN Other Social History Tobacco Use Types Packs/Day Years Used Date Smoking Tobacco: Former Cigarettes 1.5 40 0 11/17/1977 - 11/17/2017 Smokeless Tobacco: Never Sex and Gender Information Value Date Recorded Sex Assigned at Not on file Gender Identity Not on file Sexual Orientation Not on file documented as of this encounter Miscellaneous Notes * Telephone Encounter - Loreta Rothman RN - 07/29/2020 1:12 PM EDT TC to Mr. Savage Spoke with Mr. Savage in regard to CT scan incidental likely benign finding in the gall bladder and may need an ultrasound. Mr. Savaeg is aware and knows that his PCP will be following up on this finding. He was appreciative of this call and knows to call with any questions or concerns. TC to Dr. Malhotra's office [phone] Spoke with Sharmila at Dr. Malhotra's office who was able to get the CT scan results and will pass this along to Dr. Malhotra. Was grateful for this information. documented in this encounter Plan of Treatment Upcoming Encounters Date Type Department Care Team (Late st Contact Info) Description 05/02/2024 11:00 AM EDT Office [place] [address] Cristian Carolina Jr., MD [facility] DR [place] [address] documented as of this encounter Visit Diagnoses Not on filedocumented in this encounter Care Teams Software Support Engineer Relationship Specialty Start Date End Date Susannah Malhotra MD [address] [place] [address] PCP - General Family Medicine 04/22/20 documented as of this encounter
--- OUTSIDE RECORDS SUMMARY | 2024-04-21 15:17 | XMS_ITS | Encounter Summary ---
[place] [address] Care Team Providers Care Business Banking Sales Assistant Name Role Phone Susannah Malhotra MD Primary Care Provider [phone] Reason for Referral * Diagnostic Test (Routine) - Closed Specialty Diagnoses / Procedures Referred By Contac t Referred To Contact Radiology Diagnoses Right upper lobe pulmonary nodule Procedures CT Chest w Contrast Donal Wilkins MD [facility] [place] [address] [facility] [place] [address] Referral ID Status Reason Start Date Expiration Date V isits Requested Visits Authorized [id number] Closed Specialty Service Requested 04/30/2020 10/31/2021 1 1 Reason for Visit * Diagnostic Test (Routine) - Closed Specialty Diagnoses / Procedures Referred By Contac t Referred To Contact Radiology Diagnoses Right upper lobe pulmonary nodule Procedures CT Chest w Contrast Donal Wilkins MD [facility] [place] [address] [facility] [place] [address] Referral ID Status Reason Start Date Expiration Date V isits Requested Visits Authorized [id number] Closed Specialty Service Requested 04/30/2020 10/31/2021 1 1 Encounter Details Date Type Department Care Team (Latest Contact Info) Description 07/29/2020 9:56 AM EDT - 07/29/2020 11:59 PM EDT Hospital [place] [address] Donal Wilkins MD [facility] [place] [address] Right upper lobe pulmonary nodule Discharge Disposition: Home Social History Tobacco Use [...] l (ANORO ELLIPTA) 62.5-25 mcg/actuation Disk with DeviceIndications:Bilingual Inside Sales Representative ben obstructive pulmonary disease, unspecified COPD type [...] 11:00 AM EDT Office [place] [address] Cristian Carolina Jr., MD [facility] PULMONARY MEDICINE [place], [place] [address] documented as of this encounter Procedures Procedure Name Priority Date/Time Associated Diagnosis Comments CT CHEST W CONTRAST Routine 07/29/2020 1 0:43 AM EDT Right upper lobe pulmonary nodule documented in this encounter Results * (ABNORMAL) CT Chest [...] which is dated April 15, 2020. FINDINGS: Woodyard Operator Images: Noncontributory. Pulmonary parenchyma: There is moderate [...] Diagnoses Diagnosis Right upper lobe pulmonary nodule documented in this encounter Administered Medications Inactive Administered Medications - up to 3 most recent administrations Medication Order MAR Action Action Date Dose Rate Site iohexoL (Omnipaque) 350 mg/mL solution 0-200 mL 0-200 mL, Intravenous, ONCE PRN, 1 dose, Starting on Nelsy 07/29/20 at 1044, Until Nelsy 07/29/20 at 1044, Per Protocol, Warning Vesicant/Irritant Medication , Radiology Contrast, Routine Given 07/29/2020 10:44 AM EDT 60 mLs documented in this encounter Care Teams Business Banking Sales Assistant Relationship Specialty Start Date End Date Susannah Malhotra MD [address] [place] [address] PCP - General Family Medicine 04/22/20 documented as of this encounter
--- OUTSIDE RECORDS SUMMARY | 2024-04-21 15:17 | XMS_ITS | Encounter Summary ---
Author Organization [facility] [place] [address] Care Team Providers Care Unarmed Security Officer Name Role Phone Susannah Malhotra MD Primary Care Provider [phone] Encounter Details Date Type Department Care Team (Late st Contact Info) Description 11/21/2020 Ancillary Procedure [place] [address] Russel Younger MD [facility] [place] [address] Social History Tobacco Use Types Packs/Day Years [...] 11:00 AM EDT Office [place] [address] Cristian Carolina Jr., MD [facility] [place] [address] documented as of this encounter Procedures Procedure Name Priority Date/Time Associated Diagnosis Comments FILM LIBRARY STORAGE ONLY CT CHEST Routine 11/21/2020 12:00 AM EST documented in this encounter Results * Film Library- Storage Only CT Chest (11/21/2020 12:00 AM EST) Narrative AMILCAR - 02/07/2021 2:18 PM EDT This exam is auto-finalizing. It's purpose is for storage only. Russel Younger MD IMG FILM LIBRARY ORD ERABLES Performing Organization Address City/State/[facility] Co de Phone Number [place], [place] documented in this encounter Visit Diagnoses Not on filedocumented in this encounter Care Teams Unarmed Security Officer Relationship Specialty Start Date End Date Susannah Malhotra MD [address] [place] [address] PCP - General Family Medicine 04/22/20 documented as of this encounter
--- OUTSIDE RECORDS SUMMARY | 2024-04-21 15:17 | XMS_ITS | Encounter Summary ---
Author Organization [facility] [place] [address] Care Team Providers Care Marketing Database Coordinator Name Role Phone None Primary Care Provider Unavailabl e Encounter Details Date Type Department Care Team (Late st Contact Info) Description 04/15/2020 Ancillary Procedure [place] [address] Russel Younger MD [facility] [place] [address] Social History Tobacco Use Types Packs/Day Years [...] 11:00 AM EDT Office [place] [address] Cristian Carolina Jr., MD [facility] [place] [address] documented as of this encounter Procedures Procedure Name Priority Date/Time Associated Diagnosis Comments FILM LIBRARY STORAGE ONLY CT CHEST Routine 04/15/2020 12:00 AM EDT documented in this encounter Results * Film Library- Storage Only CT Chest (04/15/2020 12:00 AM EDT) Narrative MARC FITZGERALD - 04/16/2020 7:58 PM EDT This exam is auto-finalizing. It's purpose is for storage only. Russel Younger MD IMG FILM LIBRARY ORD ERABLES Performing Organization Address City/State/[facility] Co de Phone Number AMILCAR [place], [place] documented in this encounter Visit Diagnoses Not on filedocumented in this encounter Care Teams Marketing Database Coordinator Relationship Specialty Start Date End Date None None PCP - General 11/11/19 04/21/20 documented as of this encounter
--- OUTSIDE RECORDS SUMMARY | 2024-04-21 15:17 | XMS_ITS | Encounter Summary ---
Author Organization [facility] [place] [place] [address] Care Team Providers Care Automotive Product Specialist Name Role Phone Susannah Malhotra MD Primary Care Provider [phone] Reason for Visit * Reason Comments Pulmonary Embolism Follow-up Encounter Details Date Type Department Care Team (Late st Contact Info) Description 07/20/2020 2:00 PM EDT Office Visit [place] [address] Elkin Dixon MD [facility] [place] [address] Other acute pulmonary embolism with acute cor pulmonale; Chronic deep vein thrombosis of right femoral vein; GARRISON (dyspnea on exertion) Social History Tobacco Use Types Packs/Day Years Used Date Smoking Tobacco: Former Cigarettes 1.5 40 0 11/17/1977 - 11/17/2017 Smokeless Tobacco: Never Sex and Gender Information Value Date Recorded Sex Assigned at Not on file Gender Identity Not on file Sexual Orientation Not on file documented as of this encounter Last Filed Vital Signs Vital Sign Reading Time Taken Comments Blood Pressure 125/84 07/20/2020 2:10 PM EDT Pulse 94 07/20/2020 2:10 PM EDT Temperature - - Respiratory Rate - - Oxygen Saturation - - Inhaled Oxygen Concentration - - Weight 98 kg (216 lb) 07/20/2020 2:10 PM EDT Height 180.3 cm (5' 11) 07/20/2020 2:10 PM EDT Body Mass Index 30.13 07/20/2020 2:10 PM EDT documented in this encounter Progress Notes * Elkin Dixon MD - 07/20/2020 2:00 PM EDT Images from the original note were not included. [facility] [place] [address] [place] [address] CARDIOVASCULAR MEDICINE OUTPATIENT CONSULTATION Jeremiah Savage [id number] 07/20/2020 REFERRING PROVIDER: Susannah Malhotra CHIEF COMPLAINT: Chief Complaint Patient presents with ??? Pulmonary Embolism ??? Follow-up PROBLEM LIST Patient Active Problem List Diagnosis ??? Panlobular emphysema ??? Right upper lobe pulmonary nodule ??? Pulmonary embolism HISTORY OF PRESENT ILLNESS: Mr. Savage is a very pleasant 65 year old man with history of COPD and HTN whom I met when I was on hospital service and he presented with submassive PE. He presented with exertional fatigue, pleuritic chest pain, and dyspnea on exertion to outside hospital. On presentation, he was tachycardic with stable BP, ECG with S1Q3T3; CTA showed bilateral PE with RV strain. He was [place] [facility] [place] where he had mildly elevated Troponin 0.02 and proBNP ~2600. TTE showed moderate RV dilationwith moderately reduced function and PASP 48 mm Hg. DVT duplex showed acute femoral vein DVT and chronic popliteal DVT. He felt significantly better on AC alone and thus advanced therapies not pursued. He was discharged on apixaban. I last saw him on 11/11/2019. Since then, he has continued to do well. He does have some GARRISON with several flights of stairs, especially if it is humid out; if it is not humid, he has a lot less GARRISON. Hedenies angina. He has chronic RLE edema, not wearing compression. He otherwise denies PND, orthopnea, pre-syncope, syncope, claudication, or symptoms of TIA/stroke. Prior to recent presentation for VTE, he was hospitalized for pneumothorax for ruptured pulmonary bleb requiring chest tube placement about 3 months prior. He also had right popliteal DVT after knee surgery many years ago. No family history of VTE. Up to date on cancer screening including colonoscopy and prostate. REVIEW OF SYSTEMS: All others negative except as stated in the HPI. PAST MEDICAL HISTORY: Past Medical History: Diagnosis Date ??? COPD (chronic obstructive pulmonary disease) ??? Emphysema of lung ??? Fractures right ankle fractureas child ??? GERD (gastroesophageal reflux disease) ??? Hypertension ??? Lung disease ??? Sleep apnea SOCIAL HISTORY: Social History Tobacco Use ??? Smoking status: Former Smoker Packs/day: 1.50 Years: 40.00 Pack years: 60.00 Quit date: 11/17/2017 Years since quittin.6 ??? Smokeless tobacco: [...] known allergies. PHYSICAL EXAMINATION: Vital Signs: BP 125/84 (BP Location (NBP): Left arm, Patient Position: Sitting) Pulse 94 Ht 180.3 cm (5' 11) Wt 98 kg (216 lb) BMI 30.13 kg/m?? Exam Details: General: Pleasant 65 y.o.man in no acute distress Eyes: No scleral icterus ENT: Moist mucous membranes Heart: Regular rate and rhythm, normal S1/S2, no murmurs/rubs/gallops appreciated Lungs: Clear to ascultation bilaterally Abdomen: Soft, non-tender, non-distended, normoactive bowel sounds noted. Extremities: 1+ RLE edema to knee, trace LLE edema. No ulcerations noted. Vessels: No carotid bruits appreciated. Neuro: No gross abnormalities noted Psych: Alert and oriented 3 x, normal affect DATA PERSONALLY REVIEWED: EKG??06/23/19:??NSR 90 bpm, S1Q3T3, anterior TWA? TTE [...] borderline low normal at this point. ?? TTE??07/15/19: 1. ??The left ventricular chamber size [...] recurrent Mr. Savage is a very pleasant 65 year old man with history of hypertension, COPD who presents for follow-up of submassive (intermediate-high risk) PE June 2019 and RLE DVT, conservatively managed. He has continued to do well with minimal symptoms. We previously discussed about anticoagulation recommendations and he was leaning towards discontinuing apixaban; today, he reports that he would like to continue anticoagulation in order to prevent recurrent VTE and I think this is quite reasonable. Can lower dose of apixaban to 2.5 mg BID and continue long-term. Plan: 1. Switch apixaban 5 mg BID to 2.5 mg BID. Plan for long-term anticoagulation as long as benefits outweigh the risks. 2. Return to clinic in 1 year, or sooner if necessary. Thank you for allowing me to participate in the care of your patient. Please do not hesitate to contact me with any questions or concerns. Elkin Dixon MD, MPH, [facility], [facility] Cardiovascular Aquatic BiologistLocomotive Crane Operator [place] [address] documented in this encounter Plan of Treatment Upcoming Encounters Date Type Department Care Team (Late st Contact Info) Description 05/02/2024 11:00 AM EDT Office [place] [address] Cristian Carolina Jr., MD [facility] [place] [address] documented as of this encounter Visit Diagnoses Diagnosis Other acute pulmonary embolism with acute cor pulmonale Chronic deep vein thrombosis of right femoral vein 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
--- OUTSIDE RECORDS SUMMARY | 2024-04-21 15:17 | XMS_ITS | Encounter Summary ---
Author Organization [facility] [place] [address] Care Team Providers Care Tire Setter Name Role Phone Alber Garcia MD Primary Care Provider [phone] Encounter Details Date Type Department Care Team (Late st Contact Info) Description 03/09/2019 External [place] [address] Russel Younger MD [facility] [place] [address] Social History Tobacco Use Types Packs/Day Years [...] 11:00 AM EDT [place] [address] Cristian Carolina Jr., MD [facility] [place] [address] documented as of this encounter Procedures Procedure Name Priority Date/Time Associated Diagnosis Comments A1AT GENOTYPE PROFILE Routine 03/09/2019 documented in this encounter Results * A1AT Genotype Profile (03/09/2019) A1AT Genotype MM Comment:Normal Blood specimen (specimen) Historical Provider CHEMISTRY ORDERAB LES documented in this encounter Visit Diagnoses Not on filedocumented in this encounter Care Teams Tire Setter Relationship Specialty Start Date End Date Alber Garcia MD PCP - General General Internal Medicine 12/12/18 documented as of this encounter
--- OUTSIDE RECORDS SUMMARY | 2024-04-21 15:17 | XMS_ITS | Encounter Summary ---
[place] [address] Care Team Providers Care Online Marketing Manager Name Role Phone Susannah Malhotra MD Primary Care Provider [phone] Reason for Visit * Diagnostic Test (Routine) - Closed Specialty Diagnoses / Procedures Referred By Cari lester Referred To Contact Radiology Diagnoses Lung nodule Ex-smoker Procedures NM PET CT Skull Base to Mid-thigh Russel Younger MD [facility] [place] [address] [place] [address] Referral ID Status Reason Start Date Expiration Date V isits Requested Visits Authorized [id number] Closed Specialty Service Requested 04/22/2020 10/23/2021 1 1 Encounter Details Date Type Department Care Team (Latest Contact Info) Description 04/29/2020 7:44 AM EDT - 04/29/2020 11:59 PM EDT Hospital Encounter [place] [address] Russel Younger MD [facility] [place] [address] Discharge Disposition: Home Social History Tobacco Use [...] l (ANORO ELLIPTA) 62.5-25 mcg/actuation Disk with DeviceIndications:Firer Kiln ben obstructive pulmonary disease, unspecified COPD type [...] 11:00 AM EDT Office [place] [address] Cristian Carolina Jr., MD [facility] [place] [address] documented as of this encounter Procedures Procedure Name Priority Date/Time Associated Diagnosis Comments NM PET CT SKULL BASE TO MID-THIGH ([facility]) Routine 04/29/2020 9:51 AM EDT Lung nodule Ex-smoker POCT GLUCOSE Routine 04/29/2020 7:58 AM EDT documented in this encounter Results * POCT Glucose (04/29/2020 7:58 AM EDT) POC Glucose 95 65 - 199 mg/dL [facility] Comment: Supplemental ranges: <140 mg/dL before meals <180 mg/dL all other times of the day Blood specimen (specimen) 04/29/2020 7:58 AM EDT 04/29/2020 7:58 AM EDT Russel Younger MD POINT OF CARE TEST O RDERABLES Performing Organization Address City/State/[facility] [place] [address] documented in this encounter Visit Diagnoses Not on filedocumented in this encounter Care Teams Online Marketing Manager Relationship Specialty Start Date End Date Susannah Malhotra MD [address] [place] [address] PCP - General Family Medicine 04/22/20 documented as of this encounter
--- OUTSIDE RECORDS SUMMARY | 2024-04-21 15:17 | XMS_ITS | Encounter Summary ---
[place] [address] Care Team Providers Care Gold Wheel Blocker And Polisher Name Role Phone Alber Garcia MD Primary Care Provider [phone] Reason for Referral * Diagnostic Test (Routine) - Closed Specialty Diagnoses / Procedures Referred By Contac t Referred To Contact Cardiology Diagnoses Other acute pulmonary embolism with acute cor pulmonale Procedures Echocardiogram Transthoracic([facility]) Elkin Dixon MD [facility] [place] [address] [facility] [place] [address] Referral ID Status Reason Start Date Expiration Date V isits Requested Visits Authorized [id number] Closed Specialty Service Requested 07/15/2019 07/14/2020 1 1 Reason for Visit * Reason Comments Pulmonary Embolism Deep Vein Thrombosis Encounter Details Date Type Department Care Team (Late st Contact Info) Description 07/15/2019 10:00 AM EDT Office [place] [address] Elkin Dixon MD [facility] DR CARDIOLOGY DEPT [place], [place] [id number] Other acute pulmonary embolism with acute cor pulmonale; Acute deep vein thrombosis (DVT) of femoral vein of right lower extremity; Chronic deep vein thrombosis of right popliteal vein; GARRISON (dyspnea on exertion) Social History [...] Sign Reading Time Taken Comments Blood Pressure 126/77 07/15/2019 10:20 AM EDT Pulse 60 07/15/2019 10:20 AM EDT Temperature - - Respiratory Rate - - Oxygen Saturation - - Inhaled Oxygen Concentration - - Weight 95.7 kg (211 lb) 07/15/2019 10:20 AM EDT reported Height 180.3 cm (5' 11) 07/15/2019 10:20 AM EDT reported Body Mass Index 29.43 07/15/2019 10:20 AM EDT documented in this encounter Progress Notes * Elkin Dixon MD - 07/15/2019 10:00 AM EDT Images from the original note were not included. [facility] [place] [address] [place] [address] CARDIOVASCULAR MEDICINE OUTPATIENT CONSULTATION Jeremiah Savage [id number] 07/15/2019 REFERRING PROVIDER: Alber Garcia CHIEF COMPLAINT: Chief Complaint Patient presents with ??? Pulmonary Embolism ??? Deep Vein Thrombosis PROBLEM LIST Patient Active Problem List Diagnosis [...] strain. He was transferred [place] [facility] [place] where he had mildly elevated Troponin 0.02 and proBNP ~2600. TTE showed moderate RV dilationwith moderately reduced function and PASP 48 mm Hg. DVT duplex showed acute femoral vein DVT and chronic popliteal DVT. He felt significantly better on AC alone and thus advanced therapies not pursued. He was discharged on apixaban. Since discharge, he reports that his symptoms continue to improve. He has some GARRISON with moderate-severe exertion, but significant improvement compared to upon discharge. He has no chest pain. He has chronic RLE edema, which has worsened a bit since new DVT. He does not wear compression stockings. He otherwise denies CP, PND, orthopnea, pre-syncope, syncope, claudication, or symptoms of TIA/stroke. TTE today showed mildly dilated RV and mildly reduced RV function and PASP 32 mm Hg. Prior to most recent presentation for VTE, he was hospitalized for pneumothorax for ruptured pulmonary bleb requiring chest tube placement about 3 months prior. He also had right popliteal DVT after knee surgery many years ago. No family history of VTE. Up to date on cancer screening including colonoscopy and prostate. PAST MEDICAL HISTORY: Past Medical History: Diagnosis Date ??? COPD (chronic obstructive pulmonary disease) ??? Emphysema of lung ??? Fractures right ankle fractureas child ??? GERD (gastroesophageal reflux disease) ??? Hypertension ??? Lung disease REVIEW OF SYSTEMS: No flowsheet data found. GENERAL HEENT CV PULM x All negative x All negative All negative All negative Weight loss Headache Chest Pain Non-productive cough Weight gain Vision change Palpitations Productive cough Fevers Sinus congestion Orthopnea Wheezing Chills Hoarseness x LE edema Hemoptysis Night sweats Epistaxis PND Pleuritic pain Fatigue Syncope SOB Claudication x GARRISON MSK RENAL ENDO GI x All negative x All negative x All negative x All negative Arthralgias Frequency Heat intolerance Blood in stool Myalgias Urgency Cold intolerance Dysphagia Weakness Hematuria Polydipsia Odynophagia Stiffness Flank pain Polyphagia Abdominal discomfort Dysuria Cushingoid Constipation Foamy urine Diarrhea Discharge Nausea/Vomiting LYMPH SKIN NEURO PSYCH x All negative x All negative x All negative x All negative Swollen nodes Rash Seizures Depressed affect Tender nodes Ulcers Tremors Occupational stress Diffuse nodes Bruising Spasticity Anxiety Local nodes Tanned skin Focal weakness Insomnia Night sweats Telangiectasias Diplopia Paresthesias Dizziness FAMILY HISTORY: Family History Problem Relation Age of Onset ??? Chronic Obstructive Pulmonary Disease Mother ??? Heart Disease Father ??? Cancer Paternal Uncle SOCIAL HISTORY: Social History Tobacco Use ??? [...] MOUTH EVERY 6 HOURS NEEDED 98 ??? ADVAIR DISKUS 250-50 mcg/dose Disk with Device INHALE ONE PUFF BY MOUTH TWICE A DAY 3 ??? lisinopril (PRINIVIL;ZESTRIL) 5 mg Tablet TAKE ONE TABLET BY MOUTH EVERY DAY 3 ??? albuterol (PROVENTIL) 2 mg Tablet Take 2 mg by mouth 3 times daily. ??? tiotropium-olodaterol (STIOLTO RESPIMAT) 2.5-2.5 mcg/actuation Mist Inhale 2 puffs into the lungs daily. 4 g 11 No current facility-administered medications for this visit. ALLERGIES: Patient has no known allergies. PHYSICAL EXAMINATION: Vital Signs: BP 126/77 (BP Location (NBP): Right arm, Patient Position: Sitting, BP Cuff Sizes: Adult (25-34 cm)) Pulse 60 Ht 180.3 cm (5' 11) Comment: reported Wt 95.7 kg (211 lb) Comment: reported BMI 29.43 kg/m?? Exam Details: General: Pleasant 64 y.o. [...] 06/23/19: NSR 90 bpm, S1Q3T3, anterior TWA TTE 07/15/19: 1. The left ventricular chamber size is [...] pronounced and the estimated PASP is lower. TTE 06/24/19: 1. Patient with known pulmonary embolism. Prior [...] see remainder of report for additional findings. DVT duplex 06/24/19: Interpretation: RIGHT: Acute (femoral vein very distal thigh) and chronic (popliteal) non-occlusive DVT. Cannot entirely exclude additional small, focal non-occlusive DVT in the upper calf due to suboptimal visualization. ?? LEFT: ??No evidence of lower extremity deep venous thrombosis. ?? ASSESSMENT AND PLAN: #1 Submassive (intermediate-high risk) PE #2 RLE DVT, recurrent Mr. Savage is a very pleasant 64 year old man with history of HTN and COPD who presents for follow-up of submassive PE and RLE DVT. He was managed conservatively and has done very well; his TTE showed improvement in RV size/function and his symptoms are improving, although he still some GARRISON with mo derate-strenuous activity. We discussed that although this may be a provoked VTE given hospitalization within 3 month, this is his second provoked VTE (prior DVT after knee surgery). He's at low riskof bleeding. In these cases, discussion regarding risks and benefits of long-term anticoagulation are important. Given that he's low risk for bleeding, it would be reasonable to continue AC director long term care; after 1 year of full dose AC, would plan to decrease to apixaban 2.5 mg BID for secondary prevention. We also discussed that post-PE syndrome is common and it takes months for symptoms to fully resolve; we also discussed that risk of CTEPH is relatively low but is something that we need to monitorover time. Finally, given that he has RLE edema in the setting of recurrent DVT, I have asked him to wear RLE compression on regular basis to decrease risk of PTS. He's completing pulmonary rehab right now and asked me if this is safe; I congratulated him on being very active and told him that it is extremely safe to continue this. Plan: 1. Continue apixaban 5 mg BID. Plan 12 month course then switch to apixaban 2.5 mg BID for secondary prevention. 2. RLE compression. 3. TTE in 3 months. 4. Return to clinic in 3 months after TTE. Thank you for allowing me to participate in the care of your patient. Please do not hesitate to contact me with any questions or concerns. Elkin Dixon MD, MPH, [facility] Cardiovascular Farm General ManagerProperty Field Adjusterinfrastructure [place] [address] documented in this encounter Plan of Treatment Upcoming Encounters Date Type Department Care Team (Melissa johnson Contact Info) Description 05/02/2024 11:00 AM EDT Office [place] [address] Cristian Carolina Jr., MD [facility] [place] [address] documented as of this encounter Results * ECHO COMPLETE (11/11/2019 11:34 AM EST) EF 65 HEARTLAB SYSTEM Anatomical Region Laterality Modality Other 11/11/2019 Narrative 11/11/2019 12:02 PM EST Procedure: ?Transthoracic Echocardiogram Patient: ?SAWYER SANDERS ?(Age): 1955(64y) Med Rec#: ? [id number] ?Sex: ?M ? Site Loc: ? [facility] ?Ht / Wt: ??180.34(cm)/90.7 Pt. Loc: ?Echo Lab ?BSA: ?2.11 Study Date: ?? 11/11/2019 ?Pt. Type: Outpatient Tape: ? Referring: HUDSON Reading: Jose De Jesus Nava ([id number]) Datawarehouse Developer: Ranulfo Smith Diagnosis: *Other pulmonary embolism with [...] Vmax ?0.35 ? m/sec ? MV deceleration [id number] ? msec ? MV A-wave Vmax ?0.59 [...] ? Mid-Inferior ?Normal ? Mid-Inferoseptal ?Normal ? [place]-Septal ? Normal ? [place]-Anterior ? Normal ? [place]-Lateral ?Normal ? [place]-Inferior ? Normal ? [place]-Tip ?Normal ? This report has been electronically signed by: Jose De Jesus Nava MD ? 11/11/2019 12:02:00 Images reviewed and interpretation verified [facility] Cardiac Ultrasound Laboratory Procedure Note Jose De Jesus Nava MD - 11/11/2019 Procedure: Transthoracic Echocardiogram Patient: SAWYER WHITAKER(Age): 1955(64y) Med Rec#: [id number] Sex: M [place] Loc: [facility] Ht / Wt: 180.34(cm)/90.7 Pt. Loc: Echo Lab BSA: 2.11 Study Date: 11/11/2019 Pt. Type: Outpatient Tape: Referring: HUDSON Reading: Jose De Jesus Nava ([id number]) Datawarehouse Developer: Ranulfo Smith Diagnosis: *Other pulmonary embolism with [...] MV E-wave Vmax 0.35 m/sec MV deceleration [id number] msec MV A-wave Vmax 0.59 m/sec MV [...] Normal Mid-Posterolateral Normal Mid-Inferior Normal Mid-Inferoseptal Normal [place]-Septal Normal [place]-Anterior Normal [place]-Lateral Normal [place]-Inferior Normal [place]-Tip Normal This report has been electronically signed by: Jose De Jesus Nava MD 11/11/2019 12:02:00 Images reviewed and interpretation verified [facility] Cardiac Ultrasound Laboratory Elkin Dixon MD ECHO ORDERABLES documented in this encounter Visit Diagnoses Diagnosis Other acute pulmonary embolism with acute cor pulmonale Acute deep vein thrombosis (DVT) of femoral vein of right lower extremity Chronic deep vein thrombosis of right popliteal vein Chronic venous embolism and thrombosis of deep vessels of proximal lower extremity GARRISON (dyspnea on exertion) Other dyspnea and respiratory abnormality Other acute pulmonary embolism with acute cor pulmonale documented in this encounter Care Teams Gold Wheel Blocker And Polisher Relationship Specialty Start Date End Date Alber Garcia MD PCP - General General Internal Medicine 12/12/18 documented as of this encounter
--- OUTSIDE RECORDS SUMMARY | 2024-04-21 15:17 | XMS_ITS | Encounter Summary ---
[place] [address] Care Team Providers Care Wheel Truing Machine Tender Name Role Phone Susannah Malhotra MD Primary Care Provider [phone] Reason for Referral * Diagnostic Test (Routine) - Closed Specialty Diagnoses / Procedures Referred By Cari lester Referred To Contact Radiology Diagnoses Lung nodule Ex-smoker Procedures NM PET CT Skull Base to Mid-thigh Russel Younger MD [facility] [place] [address] [place] [address] Referral ID Status Reason Start Date Expiration Date V isits Requested Visits Authorized [id number] Closed Specialty Service Requested 04/22/2020 10/23/2021 1 1 Reason for Visit * Diagnostic Test (Routine) - Closed Specialty Diagnoses / Procedures Referred By Cari lester Referred To Contact Radiology Diagnoses Lung nodule Ex-smoker Procedures NM PET CT Skull Base to Mid-thigh Russel Younger MD [facility] [place] [address] [place] [address] Referral ID Status Reason Start Date Expiration Date V isits Requested Visits Authorized [id number] Closed Specialty Service Requested 04/22/2020 10/23/2021 1 1 Encounter Details Date Type Department Care Team (Latest Contact Info) Description 04/29/2020 7:42 AM EDT - 04/29/2020 7:43 AM EDT Hospital Encounter [place] [phone] Russel Younger MD [facility] [place] [address] Lung nodule; Ex-smoker Discharge Disposition: Home Social History Tobacco Use [...] l (ANORO ELLIPTA) 62.5-25 mcg/actuation Disk with DeviceIndications:Stainless Steel Finisher ben obstructive pulmonary disease, unspecified COPD type [...] 11:00 AM EDT Office [place] [phone] Cristian Carolina Jr., MD [facility] [place] [address] documented as of this encounter Procedures Procedure Name Priority Date/Time Associated Diagnosis Comments NM PET CT SKULL BASE TO MID-THIGH ([facility]) Routine 04/29/2020 9:51 AM EDT Lung nodule Ex-smoker documented in this encounter Results * NM PET CT [...] biopsy decision TECHNIQUE: Following IV injection of 38-kupnfr-7-deoxyglucose (FDG) a standard uptake of approximately 60 [...] biopsy decision TECHNIQUE: Following IV injection of 64-jhgtxj-8-deoxyglucose (FDG) astandard uptake of approximately 60 minutes, [...] below. Russel Younger MD IMG PET ORDERABLES documented in this encounter Visit Diagnoses Diagnosis Lung nodule Solitary pulmonary nodule Ex-smoker Personal history of tobacco use, presenting hazards to health documented in this encounter Administered Medications Inactive Administered Medications - up to 3 most recent administrations Medication Order MAR Action Action Date Dose Rate Site fludeoxyglucose (F-18) FDG injection 0-20 mCi 0-20 mCi, Intravenous, ONCE PRN, 1 dose, Starting on Nelsy 04/29/20 at 0827, Until Nelsy 04/29/20 at 0825, Per Protocol, Radiology Contrast, Routine Given 04/29/2020 8:25 AM EDT 17.9 mCi Right Arm documented in this encounter Care Teams Wheel Truing Machine Tender Relationship Specialty Start Date End Date Susannah Malhotra MD [address] [place] [address] PCP - General Family Medicine 04/22/20 documented as of this encounter
--- OUTSIDE RECORDS SUMMARY | 2024-04-21 15:17 | XMS_ITS | Encounter Summary ---
Author Organization [facility] [place] [address] Care Team Providers Care Dredge Master Name Role Phone Alber Garcia MD Primary Care Provider [phone] Encounter Details Date Type Department Care Team (Late st Contact Info) Description 06/23/2019 Telephone Cardiology at [address] [address] Juan Zamudio [facility] [place] [address] Social History Tobacco Use Types Packs/Day Years Used Date Smoking Tobacco: Former Cigarettes 1.5 40 0 11/17/1977 - 11/17/2017 Smokeless Tobacco: Never Sex and Gender Information Value Date Recorded Sex Assigned at Not on file Gender Identity Not on file Sexual Orientation Not on file documented as of this encounter Miscellaneous Notes * Telephone Encounter - Juan Zamudio DO - 06/23/2019 6:40 PM EDT Images from the original note were not included. Phone call: Request for Patient transfer or consultation Requesting physician: Fantasma De Santiago MD Location: 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 On presentation pt was tachycardic [id number], BP in 110-120s, SpO2 in mid 90s ORA. Pt thought he had ruptured another bleb. Initial labs significant for elevated Troponin and EKG showing anterior t-wave inversion found to have significantly elevated d-dimer. CT PE positive for b/l PE w/ CT evidence of right heart strain. Pt started on heparin gtt, calling for request for transfer. Vitals: HR: 110-115, BP: 115/78, 95% ORA on presentation, currently HR 99, BP: 118/85 Labs: Troponin: 0.4 (trop I, ULN 0.05) CBC: WBC: 8, Hb 14, Plt: 300 Cr: 1.1, normal BUN, normal LFT EKG: sinus tachycardia w/ borderline right axis deviated and T wave inversion in V3-V4 Assessment/Recommendations: 64 yo male w/ hx of moderate COPD (Gold 2b) pesenting with pleuritic chest pain and SOB for 1 day found to have b/l pulmonary emboli with CT evidence of right heart strain. Mildly elevated troponin and tachycardic but otherwise hemodynamically stable. Started on heparin gtt. SPESI score is 2 for HR> 110 and hx of chronic cardiopulmonary disease. Recommend transfer for evaluation for EKOS. - cont heparin gtt - check pro-BNP - accept in transfer for consideration for EKOS Juan Zamudio DO Mr Teacher, PGY-4 06/23/2019 documented in this encounter Plan of Treatment Upcoming Encounters Date Type Department Care Team (Late st Contact Info) Description 05/02/2024 11:00 AM EDT Office [place] [address] Cristian Carolina Jr., MD [facility] [place] [address] documented as of this encounter Visit Diagnoses Not on filedocumented in this encounter Care Teams Dredge Master Relationship Specialty Start Date End Date Alber Garcia MD PCP - General General Internal Medicine 12/12/18 documented as of this encounter
--- OUTSIDE RECORDS SUMMARY | 2024-04-21 15:18 | XMS_ITS | Encounter Summary ---
[place] [address] Care Team Providers Care Passenger Coach Driver Name Role Phone Alber Garcia MD Primary Care Provider [phone] Encounter Details Date Type Department Care Team (Latest Contact Info) Description 12/12/2018 12:41 PM EST - 12/12/2018 11:59 PM EST Hospital Encounter [place] [address] Chronic obstructive pulmonary disease, unspecified COPD type Discharge Disposition: Home Social History Tobacco Use [...] 5 mg by mouth daily. 3 06/26/2018 tiotropium-olodaterol (STIOLTO RESPIMAT) 2.5-2.5 mcg/actuation MistIndications:Stage 2 [...] daily. 11/11/2019 documented as of this encounter Procedure Notes * Cristian Carolina Jr., MD - 12/12/2018 11:59 PM ESTAssociated Order(s): PULMONARY FUNCTION TEST Pulmonary Function Testing Spirometry reveals severe airflow obstruction. There is significant improvement following bronchodilator. Diffusing capacity is moderately reduced. Oxygen saturation is normal at rest without ambulatory oxygen desaturation. The patient demonstrates ability to generate the minimum airflow necessary to use: YES - Low resistance devices (most metered dose inhalers or respimats) YES - Medium resistance devices (most dry powder inhalers) YES - High resistance device (handihaler) Note: Excessive flow rate is associated with decreased inhaler effectiveness. Cristian Carolina MD Pulmonary Medicine documented in this encounter Plan of Treatment Upcoming Encounters Date Type Department Care Team (Late st Contact Info) Description 05/02/2024 11:00 AM EDT Office [place] [address] Cristian Carolina Jr., MD [facility] [place] [address] documented as of this encounter Procedures Procedure Name Priority Date/Time Associated Diagnosis Comments COMMON PULMONARY FUNCTION TEST Routine 12/12/2018 11:59 PM EST Chronic obstructive pulmonary disease, unspecified COPD type documented in this encounter Results * Pulmonary Function Testing (12/12/2018 11:59 PM EST) Narrative Cristian Carolina Jr., MD - 12/12/2018 11:59 PM EST Cristian Carolina Jr., MD ? 12/13/2018 10:16 AM Pulmonary Function Testing Spirometry reveals severe airflow obstruction. ??There is significant improvement following bronchodilator. Diffusing capacity is moderately reduced. Oxygen saturation is normal at rest without ambulatory oxygen desaturation. The patient demonstrates ability to generate the minimum airflow necessary to use: YES - Low resistance devices (most metered dose inhalers or respimats) YES - Medium resistance devices (most dry powder inhalers) YES - High resistance device (handihaler) Note: Excessive flow rate is associated with decreased inhaler effectiveness. Cristian Carolina MD Pulmonary Medicine Russel Younger MD PFT ORDERABLES documented in this encounter Visit Diagnoses Diagnosis Chronic obstructive pulmonary disease, unspecified COPD type documented in this encounter Care Teams Passenger Coach Driver Relationship Specialty Start Date End Date Alber Garcia MD PCP - General General Internal Medicine 12/12/18 documented as of this encounter
--- OUTSIDE RECORDS SUMMARY | 2024-04-21 15:18 | XMS_ITS | Encounter Summary ---
Author Organization [facility]ly [facility] [place] [address] [place] [address] Care Team Providers Care Safety Advisor Name Role Phone Hitesh Gibson MD Primary Care Provider Encounter Details Date Type Department Care Team (Late st Contact Info) Description 01/17/2018 Ancillary Procedure [place] [address] Alber Garcia MD [address] [place] [address] Social History Tobacco Use Types Packs/Day Years [...] 11:00 AM EDT Office [place] [address] Cristian Carolina Jr., MD [facility] [place] [address] documented as of this encounter Procedures Procedure Name Priority Date/Time Associated Diagnosis Comments FILM LIBRARY STORAGE ONLY CT CHEST Routine 01/17/2018 12:00 AM EDT documented in this encounter Results * Film Library- Storage Only CT Chest (01/17/2018 12:00 AM EDT) Narrative RAD - 10/11/2018 3:23 PM EST This exam is for storage only and is auto-finalizing. Alber Garcia MD IMG FILM LIBRARY ORD ERABLES [place], [place] documented in this encounter Visit Diagnoses Not on filedocumented in this encounter Care Teams Safety Advisor Relationship Specialty Start Date End Date Hitesh Gibson MD [address] [place] [address] PCP - General 08/30/10 12/11/18 documented as of this encounter
--- OUTSIDE RECORDS SUMMARY | 2024-04-21 15:18 | XMS_ITS | Encounter Summary ---
Author Organization Formerly [facility] [address] [place] [address] Care Team Providers Care Ground Hand Name Role Phone Alber Garcia MD Primary Care Provider [phone] Encounter Details Date Type Department Care Team (Late st Contact Info) Description 12/26/2018 [place] [phone] Heidi Bo RT Social History Tobacco Use Types Packs/Day Years Used Date Smoking Tobacco: Former Cigarettes Q uit: 11/17/2017 Smokeless Tobacco: Never Sex and Gender Information Value Date Recorded Sex Assigned at Not on file Gender Identity Not on file Sexual Orientation Not on file documented as of this encounter Miscellaneous Notes * Telephone Encounter - Heidi Bo RT - 12/26/2018 4:11 PM EDT faxed pulmonary rehab referral and rural service engineer notes to [facility] pulmonary rehab program documented in this encounter Plan of Treatment Upcoming Encounters Date Type Department Care Team (Late st Contact Info) Description 05/02/2024 11:00 AM EDT Office [place] [phone] Cristian Carolina Jr., MD [facility] [address] PULMONARY MEDICINE [place], [place] [id number] documented as of this encounter Visit Diagnoses Not on filedocumented in this encounter Care Teams Ground Hand Relationship Specialty Start Date End Date Alber Garcia MD PCP - General General Internal Medicine 12/12/18 documented as of this encounter
--- OUTSIDE RECORDS SUMMARY | 2024-04-21 15:18 | XMS_ITS | Encounter Summary ---
Author Organization [facility] [place] [address] Care Team Providers Care Avionics Integration Engineer Name Role Phone Alber Garcia MD Primary Care Provider [phone] Reason for Referral * Rehabilitation (Routine) - Closed Specialty Diagnoses / Procedures Referred By Cari lester Referred To Contact Pulmonary Rehabilitation Diagnoses COPD, moderate Russel Younger MD [facility] [place] [address] [facility] Referral ID Status Reason Start Date Expiration Date V isits Requested Visits Authorized [id number] Closed Evaluate and Treat 12/13/2018 12/13/2019 36 36 Encounter Details Date Type Department Care Team (Late Contact Info) Description 12/13/2018 [place] [address] Russel Younger MD [facility] [place] [address] COPD, moderate Social History Tobacco Use Types Packs/Day Years [...] 11:00 AM EDT [place] [address] Cristian Carolina Jr., MD [facility] [place] [address] Scheduled Referrals Name Type Priority Associated Diagnoses Orde r Schedule Referral to Pulmonary Rehab Outpatient Referral Routine COPD, moderate Ordered: 12/13/2018 documented as of this encounter Procedures Procedure Name Priority Date/Time Associated Diagnosis Comments TRANSESOPHAGEAL ECHOCARDIOGRAM (FADI) Routine 06/24/2019 documented in this encounter Results * Transesophageal Echocardiogram (FADI) (06/24/2019) Anatomical Region Laterality Modality Other 06/24/2019 Narrative 06/24/2019 8:10 AM EDT Amended Report Procedure: ?Transthoracic Echocardiogram Patient: ?Hussein Daniels ?(Age): 1955(64y) Med Rec#: ? [id number] ?Sex: ?M ? Site Loc: ? [place] ?Ht / Wt: ??(cm)/ (kg) ? Pt. Loc: ?[facility] ? Study Date: ?? 06/23/2019 ?Pt. Type: Tape: ? Reading: Jose De Jesus Nava ([id number]) Bridge Welder: Juan Zamudio ([id number]) Interpreting Fellow: Juan Zamudio ([id number]) Diagnosis: *Personal history of pulmonary embolism (Z86.711) Indication: ?? nstemi Rhythm: ? Sinus SUMMARY: 1. Technically limited performed by on-call fellow for evaluation of known pulmonary embolism. 2. The left ventricle is probably normal in size. There is normal global left ventricular systolic function. ??Ejection fraction is estimated to be 65%. 3. The right ventricle is moderately dilated. Right ventricular global systolic function is moderately reduced with apical sparing. Unable to estimate PASP. 4. Consider formal TTE for further evaluation. Findings ? : Study Quality: ? Technically limited Left Ventricle: ? The left ventricle is probably normal in size. ?There is normal global left ventricular systolic function. ??Ejection fraction is estimated to be 65%. Right Ventricle: ? The right ventricle is moderately dilated. ?Right ventricular global systolic function is moderately reduced. ?Septal motion is consistent with RV pressure overload. Aortic Valve: ? The aortic valve is probably tricuspid. ?There is no evidence of aortic valve thickening. Mitral Valve: ? The mitral valve is probably normal. Pericardium: ? There is no pericardial effusion. Chambers 2D ?Value ?Units (Range) ? RVIDd ??Mid (AP) ? 5.9 ?cm ? This report has been electronically signed by: Jose De Jesus Nava MD ? 06/24/2019 11:25:28 Images reviewed and interpretation verified [facility] Cardiac Ultrasound Laboratory Procedure Note Jose De Jesus Nava MD - 06/24/2019 Amended Report Procedure: Transthoracic Echocardiogram Patient: Hussein WHITAKER(Age): 1955(64y) Med Rec#: [id number] Sex: M Site Loc: [place] Ht / Wt: (cm)/ (kg) Pt. Loc: [facility] Study Date: 06/23/2019 Pt. Type: Tape: Reading: Jose De Jesus Nava ([id number]) Bridge Welder: Juan Zamudio ([id number]) Interpreting Fellow: Juan Zamudio ([id number]) Diagnosis: *Personal history of pulmonary embolism (Z86.711) Indication: nstemi Rhythm: Sinus SUMMARY: 1. Technically limited performed by on-call fellow for evaluation of known pulmonary embolism. 2. The left ventricle is probably normal in size. There is normal global left ventricular systolic function. Ejection fraction is estimated to be 65%. 3. The right ventricle is moderately dilated. Right ventricular global systolic function is moderately reduced with apical sparing. Unable to estimate PASP. 4. Consider formal TTE for further evaluation. Findings : Study Quality: Technically limited Left Ventricle: The left ventricle is probably normal in size. There is normal global left ventricular systolic function. Ejection fraction is estimated to be 65%. Right Ventricle: The right ventricle is moderately dilated. Right ventricular global systolic function is moderately reduced. Septal motion is consistent with RV pressure overload. Aortic Valve: The aortic valve is probably tricuspid. There is no evidence of aortic valve thickening. Mitral Valve: The mitral valve is probably normal. Pericardium: There is no pericardial effusion. Chambers 2D Value Units (Range) RVIDd Mid (AP) 5.9 cm This report has been electronically signed by: Jose De Jesus Nava MD 06/24/2019 11:25:28 Images reviewed and interpretation verified [facility] Cardiac Ultrasound Laboratory Unknown ECHO ORDERABLES documented in this encounter Visit Diagnoses Diagnosis COPD, moderate Chronic airway obstruction, not elsewhere classified documented in this encounter Care Teams Avionics Integration Engineer Relationship Specialty Start Date End Date Alber Garcia MD PCP - General General Internal Medicine 12/12/18 documented as of this encounter
--- OUTSIDE RECORDS SUMMARY | 2024-04-21 15:18 | XMS_ITS | Encounter Summary ---
Author Organization [facility] [place] [address] [place] [address] Care Team Providers Care Juvenile Probation Officer Name Role Phone Hitesh Gibson MD Primary Care Provider Encounter Details Date Type Department Care Team (Late st Contact Info) Description 12/05/2017 Ancillary Procedure [place] [address] Alber Garcia MD [address] [place] [address] Social History Tobacco Use Types Packs/Day Years [...] 11:00 AM EDT Office [place] [address] Cristian Carolina Jr., MD [facility] [place] [address] documented as of this encounter Procedures Procedure Name Priority Date/Time Associated Diagnosis Comments FILM LIBRARY STORAGE ONLY DX CHEST Routine 12/05/2017 12:00 AM EST documented in this encounter Results * Film Library- Storage Only DX Chest (12/05/2017 12:00 AM EST) Narrative [facility] - 10/11/2018 3:20 PM EST This exam is for storage only and is auto-finalizing. Alber Garcia MD IMG FILM LIBRARY ORD ERABLES [place], [place] documented in this encounter Visit Diagnoses Not on filedocumented in this encounter Care Teams Juvenile Probation Officer Relationship Specialty Start Date End Date Hitesh Gibson MD [address] [place] [address] PCP - General 08/30/10 12/11/18 documented as of this encounter
--- OUTSIDE RECORDS SUMMARY | 2024-04-21 15:18 | XMS_ITS | Encounter Summary ---
Author Organization [facility] [place] [place] [address] Care Team Providers Care Burial Agent Name Role Phone Alber Garcia MD Primary Care Provider [phone] Reason for Visit * Reason Onset Date Comments Medication Refill 01/07/2019 STiolto denied , Anoro approved Encounter Details Date Type Department Care Team (Late st Contact Info) Description 01/07/2019 [place] [address] Russel Younger MD [facility] [place] [address] Chronic obstructive pulmonary disease, unspecified COPD type Social History Tobacco Use Types Packs/Day Years Used Date Smoking Tobacco: Former Cigarettes Q uit: 11/17/2017 Smokeless Tobacco: Never Sex and Gender Information Value Date Recorded Sex Assigned at Not on file Gender Identity Not on file Sexual Orientation Not on file documented as of this encounter Miscellaneous Notes * Telephone Encounter - Wendy Rosas RN - 01/07/2019 12:25 PM EDT Received fax denial of PA for Stiolto respimat from [facility] with Anoro Ellipta listed as an alternative. Dr. Younger approved the change to Anoro. New rx order pended to Dr. oYunger. Wendy Rosas RN, BSN Pulmonary Department [email or web address] Phone: [phone] Pager: [phone] documented in this encounter Plan of Treatment Upcoming Encounters Date Type Department Care Team (Late st Contact Info) Description 05/02/2024 11:00 AM EDT [place] [address] Cristian Carolina Jr., MD [facility] [place] [address] documented as of this encounter Visit Diagnoses Diagnosis Chronic obstructive pulmonary disease, unspecified COPD type documented in this encounter Care Teams Burial Agent Relationship Specialty Start Date End Date Alber Garcia MD PCP - General General Internal Medicine 12/12/18 documented as of this encounter
--- OUTSIDE RECORDS SUMMARY | 2024-04-21 15:18 | XMS_ITS | Encounter Summary ---
Author Organization [facility] [place] [place] [address] Care Team Providers Care Manager Professional Development Name Role Phone Hitesh Gibson MD Primary Care Provider [phone] Encounter Details Date Type Department Care Team (Late st Contact Info) Description 10/18/2018 Tele[place] [address] Hina Warren Social History Tobacco Use Types Packs/Day Years Used Date Smoking Tobacco: Never Assessed Sex and Gender Information Value Date Recorded Sex Assigned at Not on file Gender Identity Not on file Sexual Orientation Not on file documented as of this encounter Miscellaneous Notes * Telephone Encounter - Hina Warren - 10/18/2018 9:14 AM EST Called patient, left message to schedule documented in this encounter Plan of Treatment Upcoming Encounters Date Type Department Care Team (Late st Contact Info) Description 05/02/2024 11:00 AM EDT Office [place] [address] Cristian Carolina Jr., MD [facility] [place] [address] documented as of this encounter Visit Diagnoses Not on filedocumented in this encounter Care Teams Manager Professional Development Relationship Specialty Start Date End Date Hitesh Gibson MD [address] [place] [address] PCP - General 08/30/10 12/11/18 documented as of this encounter
--- OUTSIDE RECORDS SUMMARY | 2024-04-21 15:18 | XMS_ITS | Encounter Summary ---
[place] [address] Care Team Providers Care Manager Ccu Name Role Phone Alber Garcia MD Primary Care Provider [phone] Reason for Referral * Diagnostic Test (Routine) - Closed Specialty Diagnoses / Procedures Referred By Cari lester Referred To Contact Radiology Diagnoses Ex-smoker Procedures CT Chest Screening Lung Cancer Russel Younger MD [facility] [place] [address] [facility] [place] [address] Referral ID Status Reason Start Date Expiration Date V isits Requested Visits Authorized [id number] Closed Specialty Service Requested 12/15/2018 12/15/2019 1 1 Reason for Visit * Reason Comments Referral * Consultation (Routine) - Closed Specialty Diagnoses / Procedures Referred By Cari lester Referred To Contact Pulmonology Diagnoses COPD (chronic obstructive pulmonary disease) COPD Alber Garcia MD [phone] [facility] [place] [address] [facility] Pulmonology [address] [place] [address] Referral ID Status Reason Start Date Expiration Date V isits Requested Visits Authorized [id number] Closed Consult, Test & Treat 10/15/2018 10/15/2019 1 1 Encounter Details Date Type Department Care Team (Late st Contact Info) Description 12/12/2018 2:00 PM EST Office Visit Pulmonology at [facility] [place] [address] Russel Younger MD [facility] [place] [address] Chronic obstructive pulmonary disease, unspecified COPD type; Stage 2 moderate COPD by GOLD classification; [...] Sign Reading Time Taken Comments Blood Pressure 120/79 12/12/2018 1:36 PM EST Pulse 92 12/12/2018 1:36 PM EST Temperature - - Respiratory Rate - - Oxygen Saturation 95% 12/12/2018 1:36 PM EST Inhaled Oxygen Concentration - - Weight 98.9 kg (218 lb) 12/12/2018 1:36 PM EST Height 177.5 cm (5' 9.9) 12/12/2018 1:36 PM EST Body Mass Index 31.37 12/12/2018 1:36 PM EST documented in this encounter Patient Instructions * Patient Instructions* Russel Younger MD - 12/12/2018 2:00 PM EST Good seeing you in clinic today. You have Stage 2 COPD. Although that sounds scary I think there erika lot we can do for your COPD and if we work on the plan as outlined below I think you will do well. Please call our office on [phone] and ask for nurse if you have any questions. For more information about COPD try our website: [email or web address] All the best, Russel Younger MD 1. Medications Daily: STOP Advair START Stiolto 2 puffs daily As needed: Albuterol (Pro Air) 2 puffs before activity 2. Exacerbation prevention Avoid sick contacts, wash hands, wear mask as needed 3. Sick plan Prednisone 40mg for 5 days Azithromycin for 5 days Call our office for medications as needed 4. Sleep evaluation 5. Advanced directives 6. Smoking cessation Quit 2017 7. Pulmonary rehabilitation Referred to [facility] 8. Oxygen Not needed currently 9. Immunizations Given today (Influenza + PPSV-23) 10. Lung cancer screening Enrolled in our program 11. LVRS / Transplant 12. Palliative care 13. A1AT Testing Tested today 14. Other documented in this encounter Progress Notes * Wendy Rosas RN - 12/12/2018 2:00 PM EST 1. Medications: 2. Exacerbation prevention: 3. Sick plan: 4. Sleep evaluation: 5. Advanced directives: done 6. Smoking cessation: 7. Pulmonary rehabilitation: Never done, very interested 8. Oxygen Only CPAP 9. Immunizations: Willing to do today 10. Lung cancer screening 11. LVRS / Transplant 12. Palliative care 13. A1AT Testing: done today 14. Other- * Russel Younger MD - 12/12/2018 2:00 PM EST [facility] Section of Pulmonary Medicine COPD Clinic Consultation Date of Encounter: 12/12/2018 Referring Provider: Alber Garcia Md [address] [place] [address] PCP: Alber Garcia MD [address] [place] [address] Reason for Consult: I was asked to evaluate this patient for COPD management. I have personally interviewed and examined the patient. I have independently viewed his radiographic studies, pulmonary function testing and laboratory data. HPI: I saw Jeremiah Savage in the COPD clinic today. Jeremiah is a 63-year-old man with GOLD stage II COPD.He was first diagnosed about a year ago when he became short of breath and went to his local emergency room. He was treated for an exacerbation with steroids and antibiotics and started on inhaled therapy, Advair Diskus 1 puff twice daily. He stopped smoking immediately after this episode and has remained smoke-free since. He has had no further exacerbations of his COPD but is bothered by persistent dyspnea on exertion. Walking short distances on the flats are okay but climbing stairs or doing things like taking a shower can make him short of breath. He thinks Advair and albuterol helps somewhat. His pulmonary symptoms are as below: Symptom Scoring: CAT Responses 12/12/2018 Cough 3 Phleg/Mucus in chest 3 Tightness in chest 2 Breathlessness 2 Limited doing activities 3 Confident leaving home 0 Sleep 3 Lots of energy 2 CAT Scores 18 (Medium) Review of Systems: No exertional chest pain, no lightheadedness or dizziness, no ankle swelling. No heartburn or coughing or choking on food. No sinus symptoms. Weight stable, no fevers or chills. Review of systems otherwise negative. Past Medical History: Past Medical History: Diagnosis Date ??? COPD (chronic obstructive pulmonary disease) ??? Emphysema of lung ??? Fractures right ankle fractureas child ??? GERD (gastroesophageal reflux disease) ??? Hypertension ??? Lung disease Past Surgical History: Past Surgical History: Procedure Laterality Date ??? JOINT REPLACEMENT Right 1989 Medications: Current Outpatient Medications Medication Sig Dispense Refill ??? PROAIR HFA 90 mcg/actuation HFA Aerosol Inhaler INHALE TWO PUFFS BY MOUTH EVERY 6 HOURS NEEDED 98 ??? ADVAIR DISKUS 250-50 mcg/dose Disk with Device INHALE ONE PUFF BY MOUTH TWICE A DAY 3 ??? lisinopril (PRINIVIL;ZESTRIL) 5 mg Tablet TAKE ONE TABLET BY MOUTH EVERY DAY 3 ??? albuterol (PROVENTIL) 2 mg Tablet Take 2 mg by mouth 3 times daily. No current facility-administered medications for this visit. Allergies: Patient has no known allergies. Social History: Social History Socioeconomic History ??? Marital status: Single Spouse name: Not on file ??? Number of children: Not on file ??? Years of education: Not on file ??? Highest education level: Not on file Social Needs ??? Financial resource strain: Not on file ??? Food insecurity - worry: Not on file ??? Food insecurity - inability: Not on file ??? Transportation needs - medical: Not on file ??? Transportation needs - non-medical: Not on file Occupational History ??? Not on file Tobacco Use ??? Smoking status: Former Smoker Last attempt to quit: 11/17/2017 Years since quittin.0 ??? Smokeless tobacco: Never Used Substance and Sexual Activity ??? Alcohol use: Not on file ??? Drug use: Not on file ??? Sexual activity: Not on file Other Topics Concern ??? 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 General: Comfortable at rest HEENT: No cervical lymphadenopathy, no oral thrush Resp: Hyperinflated, chest expansion equal Resonant to percussion with vesicular breath sounds throughout No crackles or wheeze Skin: No rash Extremities: No clubbing, no cyanosis, no edema, calves soft and non tender Neurologic: No obvious cranial nerve palsy or limb weakness, normal gait Psych: Normal mood and affect Labs: None A1AT gentoype: pending Imaging: Available CXR and CT Chest images were viewed personally and reports were reviewed. I agree with the radiology reads. I reviewed a CT scan performed [facility] in [facility] in January 2018. This was notable for centrilobular emphysema but no suspicious pulmonary nodules. Pulmonary Function Tests: PFT Results Office Visit from 12/12/2018 in Pulmonology at [place] PFT Results FEV1 (L) 1.55 liters FEV1 [...] deemed a significant bronchodilator response by the [place] thoracic Society. Diffusing capacity is 46% predicted Oxygen saturation 95% on RA at rest and fell to a stacy of 90% on room air during a 600 feet walk. Peak inspiratory flow rate testing revealed patient had adequate minimum inspiratory flow rates to effectively use all inhaler types Assessment: 1. COPD: GOLD stage 2 category B. This is moderate disease. 2. Former smoker, quit 1 years ago GOLD Staging - Airflow FEV1 >80% 1 FEV1 <80% 2 FEV1 <50% 3 FEV1 <30% 4 GOLD Staging - Symptoms Annual Exacerbations CAT <10 CAT >10 0 or 1 A B 2 or more C D Jeremiah Savage GOLD stage II COPD. Overall he is coping well with this but I think there are a couple of things we could do to improve his main symptom, exertional dyspnea. He was reviewed by respiratory therapist, Heidi Bo, who taught him the pursed lip breathing technique today. He would benefit from a change of inhaled therapy and I switched him from an inhaled corticosteroid and long-acting beta agonist to a combined long-acting bronchodilator. Thirdly I referred him to a local pulmonary rehab program. We will plan to see him back in our office after he is completed the pulmonary rehab program for follow-up. He is eligible for lung cancer screening and after appropriate discussion (see documentation below) I placed a referral to our program. Today we addressed the following points of the plan below and the patient was provided with a written copy at checkout. Over time we aim to address all items on the checklist that are relevant to thepatient Plan: 1. Medications Daily: STOP Advair START Stiolto 2 puffs daily As needed: Albuterol (Pro Air) 2 puffs before activity 2. Exacerbation prevention Avoid sick contacts, wash hands, wear mask as needed 3. Sick plan Prednisone 40mg for 5 days Azithromycin for 5 days Call our office for medications as needed 4. Sleep evaluation 5. Advanced directives 6. Smoking cessation Quit 2017 7. Pulmonary rehabilitation Referred to [facility] 8. Oxygen Not needed currently 9. Immunizations Given today (Influenza + PPSV-23) 10. Lung cancer screening Enrolled in our program 11. LVRS / Transplant 12. Palliative care 13. A1AT Testing Tested today 14. Other Follow up: 4 months Thank you for referring this patient to the COPD clinic. Russel Younger MD CC: Vince Cortes MD (for pulmonary rehab) During today???s visit, I determined that the patient meets the [place] Preventive Services Task Force eligibility criteria for lung cancer screening. The patient has 60 pack-year smoking history and has smoked within the past 15 years. We reviewed the [facility] CT Lung Cancer Screening Decision Aid (two-page fact sheet) and discussed the following benefits and harms. ??? Earlier detection and treatment and reduced mortality from lung cancer. ??? False positive results, overdiagnosis of lung cancer and radiation risk. We discussed the impact of co-morbidities on the benefit of screening and the patient???s ability and willingness to undergo invasive diagnostic procedures and treatment that might follow a positive screening result. I also counseled the patient on the importance of adherence to annual lung cancer screening and the importance of not smoking. * Heidi Bo, RT - 12/12/2018 2:00 PM EST MDI/DPI instruction for Jeremiah Savage: Inspiratory Flows Resistance via Incheck dial Peak Inspiratory Flow Rate in LPM Low resistance ( MDI/Respimat): 1) 120 2) 60 3) 55 -Instructed in MDI with open mouth technique: Jeremiah Savage Able to demonstrate technique correctly, Inspiratory flow after instruction: 55-60 lpm -Respimat: Instructed in assembly, priming and technique: Jeremiah Savage Able to demonstrate ability to prime and proper technique of Respimat, Inspiratory flow after instruction: 55-60 lpm Reviewed importance of priming initially and re-priming MDI HFA if not used within 2 weeks. Reviewed order of inhalers: Proair HFA 2 puffs every 4-6 hours as needed, currently utilizing every 2 weeks prn - Stiolto Respimat 2 puffs once a day Stop Advair. Pulmonary Rehabilitation/Home Exercise Program: -Reviewed the concept of pulmonary rehabilitation and pulmonary rehabilitation programs near [place]. Jeremiah Savage noted he would prefer to participate at [facility] pulmonary rehabilitation program. Provided contact information for this program to patient. Reviewed pursed lip breathing, Jeremiah Savage able to demonstrate pursed lip breathing at rest and will practice at home, at rest and then with ambulation. Patient referred to [facility] pulmonary rehabilitation program documented in this encounter Plan of Treatment Upcoming Encounters Date Type Department Care Team (Late st Contact Info) Description 05/02/2024 11:00 AM EDT [place] [address] Cristian Carolina Jr., MD [facility] [place] [address] documented as of this encounter Results * CT Chest Screening Lung Cancer (01/17/2019 2:00 PM EDT) Anatomical Region Laterality Modality Computed Tomogra phy Impressions 01/17/2019 5:49 PM EDT Lung-RADS 2 (Benign appearance) RECOMMENDATION: Return to CT screening in one year Bilateral lower lung predominant bronchial wall thickening in the presence of known history of gastroesophageal reflux is concerning for aspiration from reflux at night. Severe coronary artery calcifications. Thank you for letting us participate in the care of this patient. For questions regarding this report, please contact the number below. ? Narrative 01/17/2019 5:49 PM EDT EXAMINATION: CT CHEST SCREENING LUNG CANCER CLINICAL HISTORY: Lung Cancer Screening Asymptomatic but at high risk for lung cancer TECHNIQUE: Noncontrast, low-dose chest CT (LDCT) per [facility] lung cancer screening protocol. COMPARISON: Outside non-screening CT January 17, 2018. FINDINGS: Lung-RADS Lung screening specific: None Potentially significant incidental findings: None Other incidental findings: Moderate centrilobular emphysema. Bilateral lower lung predominant bronchial wall thickening. Mild atelectases primarily in the left lower lung. Severe coronary artery atherosclerotic calcification. Very small hiatal hernia. Incompletely characterized small hypodense lesions in the right and left liver lobe. These are stable compared to the prior outside CT. Procedure Note Simona Rodríguez MD - 01/17/2019 EXAMINATION: CT CHEST SCREENING LUNG CANCER CLINICAL HISTORY: Lung Cancer Screening Asymptomatic but at high risk for lung cancer TECHNIQUE: Noncontrast, low-dose chest CT (LDCT) per [facility] lung cancerscreening protocol. COMPARISON: Outside non-screening CT January 17, 2018. FINDINGS: Lung-RADS Lung screening specific: None Potentially significant incidental findings: None Other incidental findings: Moderate centrilobular emphysema. Bilateral lower lung predominantbronchial wall thickening. Mild atelectases primarily in the left lower lung. Severe coronary artery atherosclerotic calcification. Very small hiatal hernia. Incompletely characterized small hypodense lesions in the right and leftliver lobe. These are stable compared to the prior outside CT. IMPRESSION Lung-RADS 2 (Benign appearance) RECOMMENDATION: Return to CT screening in one year Bilateral lower lung predominant bronchial wall thickening in the presenceof known history of gastroesophageal reflux is concerning for aspirationfrom reflux at night. Severe coronary artery calcifications. Thank you for letting us participate in the care of this patient. Forquestions regarding this report, please contact the number below. Russel Younger MD IMG CT ORDERABLES documented in this encounter Visit Diagnoses Diagnosis Chronic obstructive pulmonary disease, unspecified COPD type Stage 2 moderate COPD by GOLD classification Ex-smoker Personal history of tobacco use, presenting hazards to health Ex-smoker Personal history of tobacco use, presenting hazards to health documented in this encounter Care Teams Manager Ccu Relationship Specialty Start Date End Date Alber Garcia MD PCP - General General Internal Medicine 12/12/18 documented as of this encounter
--- OUTSIDE RECORDS SUMMARY | 2024-04-21 15:18 | XMS_ITS | Encounter Summary ---
Author Organization [facility] [place] [address] [place] [address] Care Team Providers Care Museum Specialist Name Role Phone Hitesh Gibson MD Primary Care Provider Encounter Details Date Type Department Care Team (Late st Contact Info) Description 11/28/2017 12:05 AM EST Ancillary Procedure [place] [address] Alber Garcia MD [address] [place] [address] Social History Tobacco Use Types Packs/Day Years [...] 11:00 AM EDT Office [place] [address] Cristian Carolina Jr., MD [facility] [place] [address] documented as of this encounter Procedures Procedure Name Priority Date/Time Associated Diagnosis Comments FILM LIBRARY STORAGE ONLY DX CHEST Routine 11/28/2017 12:05 AM EST documented in this encounter Results * Film Library- Storage Only DX Chest (11/28/2017 12:05 AM EST) Narrative RAD - 10/11/2018 3:24 PM EST This exam is for storage only and is auto-finalizing. Alber Garcia MD IMG FILM LIBRARY ORD ERABLES Performing Organization Address City/State/[facility] Co de Phone Number [place], [place] documented in this encounter Visit Diagnoses Not on filedocumented in this encounter Care Teams Museum Specialist Relationship Specialty Start Date End Date Hitesh Gibson MD [address] [place] [address] PCP - General 08/30/10 12/11/18 documented as of this encounter
--- OUTSIDE RECORDS SUMMARY | 2024-04-21 15:18 | XMS_ITS | Encounter Summary ---
Author Organization [facility] [place] [place] [address] Care Team Providers Care Sound Cutter Name Role Phone Alber Garcia MD Primary Care Provider [phone] Encounter Details Date Type Department Care Team (Late st Contact Info) Description 01/22/2019 Telephone [place] [phone] Heidi Bo RT Social History Tobacco Use Types Packs/Day Years Used Date Smoking Tobacco: Former Cigarettes Q uit: 11/17/2017 Smokeless Tobacco: Never Sex and Gender Information Value Date Recorded Sex Assigned at Not on file Gender Identity Not on file Sexual Orientation Not on file documented as of this encounter Miscellaneous Notes * Telephone Encounter - Heidi Bo RT - 01/22/2019 10:10 AM EDT Called Etelvina at [facility] pulmonary rehab at [phone], In follow up on Jeremiah Gottliebkins pulmonary rehab referral. He needs to be seen by Dr. Francine Veliz ( new drop wire hanger covering for Dr. Cortes who is retiring 01/30/19). Earliest appointment available for Dr. Veliz is the week of March. Plan: Follow up with Jeremiah Gottliebkins regarding potential other pulm rehab programs near him documented in this encounter Plan of Treatment Upcoming Encounters Date Type Department Care Team (Late st Contact Info) Description 05/02/2024 11:00 AM EDT Office [place] [address] Cristian Carolina Jr., MD [facility] [place] [address] documented as of this encounter Visit Diagnoses Not on filedocumented in this encounter Care Teams Sound Cutter Relationship Specialty Start Date End Date Alber Garcia MD PCP - General General Internal Medicine 12/12/18 documented as of this encounter
--- OUTSIDE RECORDS SUMMARY | 2024-04-21 15:18 | XMS_ITS | Encounter Summary ---
Author Organization [facility] [place] [address] [place] [address] Care Team Providers Care Director Of Individual Giving Name Role Phone Alber Garcia MD Primary Care Provider [phone] Reason for Visit * Reason Onset Date Comments Prior Authorization 12/30/2018 Encounter Details Date Type Department Care Team (Late st Contact Info) Description 12/30/2018 Telephone [place] [address] Katina Centeno LPN Prior Authorization Social History Tobacco Use Types Packs/Day Years Used Date Smoking Tobacco: Former Cigarettes Q uit: 11/17/2017 Smokeless Tobacco: Never Sex and Gender Information Value Date Recorded Sex Assigned at Not on file Gender Identity Not on file Sexual Orientation Not on file documented as of this encounter Miscellaneous Notes * Telephone Encounter - Katina Centeno LPN - 12/30/2018 1:41 PM EDT Pa started for stiolto respimat via cover my meds (RVLDNU) documented in this encounter Plan of Treatment Upcoming Encounters Date Type Department Care Team (Late st Contact Info) Description 05/02/2024 11:00 AM EDT Office [place] [address] Cristian Carolina Jr., MD [facility] [place] [address] documented as of this encounter Visit Diagnoses Not on filedocumented in this encounter Care Teams Director Of Individual Giving Relationship Specialty Start Date End Date Alber Garcia MD PCP - General General Internal Medicine 12/12/18 documented as of this encounter
--- OUTSIDE RECORDS SUMMARY | 2024-04-21 15:18 | XMS_ITS | Encounter Summary ---
Author Organization [facility] [place] [place] [address] Care Team Providers Care Assurance Associate Name Role Phone Hitesh Gibson MD Primary Care Provider Encounter Details Date Type Department Care Team (Late st Contact Info) Description 11/28/2017 Ancillary Procedure [place] [address] Alber Garcia MD [address] [place] [id number] Social History Tobacco Use Types Packs/Day Years [...] 11:00 AM EDT Office [place] [address] Cristian Carolina Jr., MD [facility] [place] [address] documented as of this encounter Procedures Procedure Name Priority Date/Time Associated Diagnosis Comments FILM LIBRARY STORAGE ONLY CT CHEST Routine 11/28/2017 12:00 AM EST documented in this encounter Results * Film Library- Storage Only CT Chest (11/28/2017 12:00 AM EST) Narrative RAD - 10/11/2018 3:21 PM EST This exam is for storage only and is auto-finalizing. Alber Garcia MD IMG FILM LIBRARY ORD ERABLES [place], [place] documented in this encounter Visit Diagnoses Not on filedocumented in this encounter Care Teams Assurance Associate Relationship Specialty Start Date End Date Hitesh Gibson MD [address] [place] [place] [address] PCP - General 08/30/10 12/11/18 documented as of this encounter
--- OUTSIDE RECORDS SUMMARY | 2024-04-21 15:18 | XMS_ITS | Encounter Summary ---
Author Organization [facility] [place] [address] Care Team Providers Care Orthotic Aide Name Role Phone Hitesh Gibson MD Primary Care Provider Encounter Details Date Type Department Care Team (Late st Contact Info) Description 11/16/2017 Ancillary Procedure [place] [address] Alber Garcia MD [address] [place] [id number] Social History Tobacco Use Types Packs/Day Years [...] 11:00 AM EDT Office [place] [address] Cristian Carolina Jr., MD [facility] [place] [address] documented as of this encounter Procedures Procedure Name Priority Date/Time Associated Diagnosis Comments FILM LIBRARY STORAGE ONLY DX CHEST Routine 11/16/2017 12:00 AM EST documented in this encounter Results * Film Library- Storage Only DX Chest (11/16/2017 12:00 AM EST) Narrative RAD - 10/11/2018 3:19 PM EST This exam is for storage only and is auto-finalizing. Alber Garcia MD IMG FILM LIBRARY ORD ERABLES [place], [place] documented in this encounter Visit Diagnoses Not on filedocumented in this encounter Care Teams Orthotic Aide Relationship Specialty Start Date End Date Hitesh Gibson MD [address] [place] [address] PCP - General 08/30/10 12/11/18 documented as of this encounter
--- OUTSIDE RECORDS SUMMARY | 2024-04-21 15:18 | XMS_ITS | Encounter Summary ---
Author Organization [facility] [place] [address] Care Team Providers Care Tree Topper Name Role Phone Alber Garcia MD Primary Care Provider [phone] Encounter Details Date Type Department Care Team (Late st Contact Info) Description 12/11/2018 Orders [place] [address] Russel Younger MD [facility] Pulmonary [place] [address] Chronic obstructive pulmonary disease, unspecified COPD type [...] 11:00 AM EDT [place] [address] Cristian Carolina Jr., MD [facility] [place] [address] documented as of this encounter Results * Pulmonary Function Testing [...] Chronic obstructive pulmonary disease, unspecified COPD type Chronic obstructive pulmonary disease, unspecified COPD type documented in this encounter Care Teams Tree Topper Relationship Specialty Start Date End Date Alber Garcia MD PCP - General General Internal Medicine 12/12/18 documented as of this encounter
--- OUTSIDE RECORDS SUMMARY | 2024-04-21 15:18 | XMS_ITS | Encounter Summary ---
[place] [address] Care Team Providers Care Business Office Assistant Name Role Phone Alber Garcia MD Primary Care Provider [phone] Reason for Referral * Diagnostic Test (Routine) - Closed Specialty Diagnoses / Procedures Referred By Cari lester Referred To Contact Radiology Diagnoses Ex-smoker Procedures CT Chest Screening Lung Cancer Russel Younger MD [facility] [place] [address] [facility] [place] [address] Referral ID Status Reason Start Date Expiration Date V isits Requested Visits Authorized [id number] Closed Specialty Service Requested 12/15/2018 12/15/2019 1 1 Reason for Visit * Diagnostic Test (Routine) - Closed Specialty Diagnoses / Procedures Referred By Cari lester Referred To Contact Radiology Diagnoses Ex-smoker Procedures CT Chest Screening Lung Cancer Russel Younger MD [facility] [place] [address] [facility] [place] [address] Referral ID Status Reason Start Date Expiration Date V isits Requested Visits Authorized [id number] Closed Specialty Service Requested 12/15/2018 12/15/2019 1 1 Encounter Details Date Type Department Care Team (Latest Contact Info) Description 01/17/2019 12:22 PM EDT - 01/17/2019 11:59 PM EDT Hospital Encounter [place] [phone] Russel Younger MD [facility] [place] [address] Ex-smoker Discharge Disposition: Home Social History Tobacco [...] 5 mg by mouth daily. 3 06/26/2018 umeclidinium-vilanterol (ANORO ELLIPTA) 62.5-25 mcg/actuation Disk with DeviceIndications:Chronic obstructive pulmonary disease, unspecified COPD type Inhale [...] 11:00 AM EDT Office [place] [phone] Cristian Carolina Jr., MD [facility] [place] [address] documented as of this encounter Procedures Procedure Name Priority Date/Time Associated Diagnosis Comments CT CHEST SCREENING LUNG CANCER Routine 01/17/2019 2:00 PM EDT Ex-smoker documented in this encounter Results * CT Chest Screening [...] report, please contact the number below. ? Electronically signed by: Simona Felix [facility] ([phone]), at 01/17/2019 5:49 PM Narrative 01/17/2019 5:49 PM EDT EXAMINATION: CT CHEST SCREENING LUNG CANCER CLINICAL HISTORY: Lung Cancer Screening Asymptomatic but at high risk for lung cancer TECHNIQUE: Noncontrast, low-dose chest CT (LDCT) per [facility] lung cancer screening protocol. COMPARISON: Outside non-screening [...] TECHNIQUE: Noncontrast, low-dose chest CT (LDCT) per [facility] lung cancerscreening protocol. COMPARISON: Outside non-screening CT [...] this report, please contact the number below. Electronically signed by: Simona Felix [facility]([phone]), at 01/17/2019 5:49 PM Russel Younger MD IMG CT ORDERABLES documented in this encounter Visit Diagnoses Diagnosis Ex-smoker Personal history of tobacco use, presenting hazards to health documented in this encounter Care Teams Business Office Assistant Relationship Specialty Start Date End Date Alber Garcia MD PCP - General General Internal Medicine 12/12/18 documented as of this encounter
[2024-04-21 16:07] LABS: ALT 39 U/L (16-63); AST 23 U/L (15-37); Albumin 4.1 g/dL (3.4-5.0); Alkaline Phosphatase 78 U/L (46-116); Anion Gap 6.4 mmol/L (3-11); BUN 18 mg/dL (7-18); Bilirubin, Total 0.68 mg/dL (0.2-1.0); CO2 31.6 mmol/L (21.0-32.0); CREATININE 1.1 mg/dL (0.70-1.30); Calcium 9.1 mg/dL (8.5-10.1); Calculated LDL 143 mg/dL (<100); Chloride 104 mmol/L (98-107); Cholesterol 207 mg/dL (<200); Estimated GFR 71.77 (mL/min/1.73m2); Glucose 102 mg/dL (74-106); HDL Cholesterol 44 mg/dL (40-60); Potassium 4.6 mmol/L (3.5-5.1); Sodium 142 mmol/L (136-145); Total Protein 7.6 g/dL (6.4-8.2); Triglyceride 101 mg/dL (<150); Vitamin D 25 Total 18.3 ng/mL (30-100)
[2024-04-21 22:36] LABS: PSA, Screening 3.7 ng/mL (<=6.5)
== END 2024-04-21 15:14 | disposition home or self-care (01) ==
LOC: NCHCN 15:13
PROVIDERS: PCP Family Medicine; Visit Provider Family Medicine
DX: I25.10 Atherosclerotic heart disease of native coronary artery without angina pectoris (principal); E78.5 Hyperlipidemia, unspecified
CPT/HCPCS: 80053; 80061; 82306; 84153; 85027

== ENCOUNTER 2024-12-22 15:43 | Emergency (ER) | payer MEDICARE, BC, SELFPAY ==
[2024-12-22] VITALS (29 sets, daily range): BP systolic 142–190; BP diastolic 88–114; PULSE 65–92; RESP 5–26; TEMP 36.7; O2SAT 90–98
--- NOTE | 2024-12-22 15:30 | RT.EKG_ITS ---
APPROVED REPORT Exam: Resting ECG Reason for Exam: COPD Exacerbation Patient Location: E HR:78 bpm ECG Measurements Heart Rate 78 AXIS DC 172 P 74 QRSd 101 QRS 80 QT 424 T 37 QTc 483 Conclusion Sinus rhythm, rate 78 No interval abnormalities No STEMI Q wave lead III, unchanged from priors
--- NOTE | 2024-12-22 15:45 | DI.RAD_ITS ---
Exam(s) XR CHEST 2V PA LATERAL EXAM: XR CHEST 2V PA LATERAL CLINICAL HISTORY: shortness of breath TECHNIQUE: 2D digital imaging was performed of the chest. Two images were obtained. PA and lateral views were obtained. COMPARISON: CR XR CHEST 2V PA LATERAL from 06/04/2023 FINDINGS: Nipple shadows are present. MEDIASTINUM: Normal. HEART: Normal. PULMONARY VASCULATURE: Normal. LUNGS: Stable chronic pulmonary fibrotic changes are present in the lungs. No focal consolidating in filtrates are seen. The lungs appear hyperinflated with flattened diaphragms suggesting underlying C OPD. PLEURAL SPACE: No pleural effusion or pneumothorax. BONE:Within normal limits for the patient's age. OTHER FINDINGS:Normal. IMPRESSION: No acute pulmonary findings. DATA REPOSITORY: RADIATION DOSE DELIVERED:
[2024-12-22] MEDS: Albuterol/Ipratropium 3 ML UPD VIAL UPD ×2 (16:06→17:42)
[2024-12-22] MEDS: methylPREDNISolone SUCC 125 MG VIAL 80 MG IVP (16:08)
[2024-12-22 16:15] LABS: Abs Immature Grans 0.02 10^3/uL (0.0-0.06); Absolute Eosinophil Count 0.91 10^3/uL (0.0-0.7); Absolute Lymphocyte Count 1.98 10^3/uL (1.2-3.4); Absolute Monocyte Count 0.84 10^3/uL (0.1-0.8); Absolute Neutrophil Count 4.35 10^3/uL (1.2-6.7); Basophils % 1.2 %; Eosinophils % 11.1 %; HCT 43.2 % (40.0-50.0); HGB 14.4 g/dL (13.5-17.5); Immature Grans % 0.2 %; Lymphocytes % 24.1 %; MCH 29.8 pg (27.0-33.0); MCHC 33.3 % (32.0-36.0); MCV 89 fL (80-95); MPV 8.9 fL (8.0-11.0); Monocytes % 10.2 %; Neutrophils % 53.2 %; Platelet Count 262 10^3/uL (130-400); RBC 4.84 10^6/uL (4.36-5.78); RDW-SD 39.1 fL
[2024-12-22 16:54] LABS: COVID-19 PCR Negative (Negative); Influenza A PCR Negative (Negative); Influenza B PCR Negative (Negative); RSV PCR Negative (Negative); Source Nasopharynx
[2024-12-22 17:25] LABS: ALT 55 U/L (16-63); AST 24 U/L (15-37); Albumin 3.8 g/dL (3.4-5.0); Alkaline Phosphatase 68 U/L (46-116); Anion Gap 6.2 mmol/L (3-11); BUN 13 mg/dL (7-18); Bilirubin, Total 0.4 mg/dL (0.2-1.0); CO2 30.8 mmol/L (21.0-32.0); CREATININE 1.1 mg/dL (0.70-1.30); Calcium 8.6 mg/dL (8.5-10.1); Chloride 107 mmol/L (98-107); Estimated GFR 71.77 (mL/min/1.73m2); Glucose 100 mg/dL (74-106); NT-proBNP 190 pg/mL (<300); Potassium 3.8 mmol/L (3.5-5.1); Sodium 144 mmol/L (136-145); Total Protein 7.3 g/dL (6.4-8.2); Troponin I 10 ng/L (<or=76)
[2024-12-22 18:24] LABS: Troponin I 9 ng/L (<or=76)
[2024-12-22] MEDS: Doxycycline Hyclate 100 MG, 2 CAPS/BTL PO (19:00)
--- NOTE | 2024-12-22 19:21 | W.ED.GENAD ---
Discharge Plan Disposition Patient Disposition: Home Discharge Details Clinical Impression: COPD exacerbation Primary Care Provider: Susannah Malhotra ED Provider: Myranda Lui Home Meds and New Rx's Prescriptions: New albuterol sulfate 2.5 mg /3 mL (0.083 %) solution for nebulization 2.5 mg inhalation Q6H Qty: 90 0RF doxycycline hyclate 100 mg tablet 100 mg PO BID Qty: 14 0RF prednisone 20 mg tablet 40 mg PO ONCE Qty: 10 0RF Continued Anoro Ellipta 62.5-25 mcg/actuation blister with device 1 inh IH Q24H Eliquis 5 mg tablet 5 mg PO BID aspirin [Aspir-81] 81 MG tablet,delayed release (DR/EC) 81 mg PO UNKNOWN Rx Instructions: Takes it every other day- last taken 06/02/23 CT lisinopril 2.5 mg tablet 5 mg PO DAILY omeprazole 20 mg capsule,delayed release(DR/EC) 20 mg PO DAILY ibuprofen 600 mg tablet 600 mg PO TID-QID PRN (Reason: pain) Qty: 60 3RF Rx Instructions: take w/ food albuterol sulfate 1.25 mg/3 mL Solution For Nebulization 1.25 mg inhalation PRN PRN codeine-guaifenesin 10-100 mg/5 mL Liquid 5 ml PO Q12H PRN PRNQty: 120 0RF prednisone 20 mg Tablet 40 mg PO DAILY Qty: 2 0RF polyethylene glycol 3350 17 gram Powder In Packet 17 g PO DAILY PRN PRN (Reason: Constipation) Qty: 1 2RF Patient Comments: no longer takes 06/04/23 CT fluticasone propionate [Flovent HFA] 220 mcg/actuation HFA aerosol inhaler 1 puff IH BID Qty: 1 3RF Rx Instructions: administer with spacer, use with Annora. May substitute 250mcg Diskus inhaled one puff BID if better covered. albuterol sulfate [Ventolin HFA] 90 mcg/actuation HFA aerosol inhaler 2 puff IH Q6H PRNQty: 1 0RF folic acid 1 mg Tablet 1 mg PO DAILY Qty: 30 0RF Discharge Instructions Instructions: COPD Exacerbation, Adult ED Additional Instructions: take antibiotics as prescribed take prednisone as prescribed use inhaler every 4 hours (rescue) use oxygen as needed return earlier with worsening shortness of breath, fever, or should you have new or progressing symptoms Referrals: Susannah Malhotra [Primary Care Provider] - 2 days HPI General Date/Time Provider Initiated Documentation: 12/22/24 15:44. HPI Narrative: 69-year-old male with COPD, pneumonia, DVT, and hypertension, presenting with shortness of breath and cough since Sunday. He feels like he has pneumonia, a condition he has had multiple times. No fever, sick contacts, chills, hemoptysis, calf pain, swelling, recent surgeries, or long drives. Related Data Home Medications ?Medication ?Instructions ?Recorded ?Confirmed aspirin 81 mg tablet,delayed 81 mg PO UNKNOWN 06/15/16 12/22/24 release (Aspir-) ibuprofen 600 mg tablet 600 mg PO TID-QID PRN pain #60 tabs 02/28/19 12/22/24 lisinopril 2.5 mg tablet 5 mg PO DAILY 03/06/19 12/22/24 umeclidinium 62.5 mcg-vilanterol 1 inh inhalation Q24H 03/06/19 12/22/24 25 mcg/actuation powdr for inhalation (Anoro Ellipta) fluticasone propionate 220 1 puff inhalation BID #1 inh 03/17/19 12/22/24 mcg/actuation HFA aerosol inhaler (Flovent HFA) polyethylene glycol 3350 17 gram 17 g PO DAILY PRN PRN Constipation 03/17/19 12/22/24 oral powder packet #1 ea albuterol sulfate 1.25 mg/3 mL 1.25 mg inhalation PRN PRN 06/23/19 12/22/24 solution for nebulization apixaban 5 mg tablet (Eliquis) 5 mg PO BID 07/30/19 12/22/24 albuterol sulfate 90 mcg/actuation 2 puff inhalation Q6H PRN #1 inh 10/05/20 12/22/24 aerosol inhaler (Ventolin HFA) folic acid 1 mg tablet 1 mg PO DAILY #30 tabs 11/27/20 12/22/24 omeprazole 20 mg capsule,delayed 20 mg PO DAILY 12/11/22 12/22/24 release codeine 10 mg-guaifenesin 100 mg/5 5 ml PO Q12H PRN PRN #120 mL 06/10/23 12/22/24 mL oral liquid prednisone 20 mg tablet 40 mg (2 x 20 mg) PO DAILY #2 tabs 06/10/23 12/22/24 albuterol sulfate 2.5 mg/3 mL 2.5 mg (3 mL) inhalation Q6H #90 mL 12/22/24 (0.083 %) solution for nebulization doxycycline hyclate 100 mg tablet 100 mg PO BID #14 tabs 12/22/24 prednisone 20 mg tablet 40 mg (2 x 20 mg) PO ONCE #10 tabs 12/22/24 Previous Rx's ?Medication ?Instructions ?Recorded ibuprofen 600 mg tablet 600 mg PO TID-QID PRN pain #60 tabs 02/28/19 fluticasone propionate 220 1 puff inhalation BID #1 inh 03/17/19 mcg/actuation HFA aerosol inhaler (Flovent HFA) polyethylene glycol 3350 17 gram 17 g PO DAILY PRN PRN Constipation 03/17/19 oral powder packet #1 ea albuterol sulfate 90 mcg/actuation 2 puff inhalation Q6H PRN #1 inh 10/05/20 aerosol inhaler (Ventolin HFA) folic acid 1 mg tablet 1 mg PO DAILY #30 tabs 11/27/20 codeine 10 mg-guaifenesin 100 mg/5 5 ml PO Q12H PRN PRN #120 mL 06/10/23 mL oral liquid prednisone 20 mg tablet 40 mg (2 x 20 mg) PO DAILY #2 tabs 06/10/23 albuterol sulfate 2.5 mg/3 mL 2.5 mg (3 mL) inhalation Q6H #90 mL 12/22/24 (0.083 %) solution for nebulization doxycycline hyclate 100 mg tablet 100 mg PO BID #14 tabs 12/22/24 prednisone 20 mg tablet 40 mg (2 x 20 mg) PO ONCE #10 tabs 12/22/24 Allergies Allergy/AdvReac Type Severity Reaction Status Date / Time No Known Allergies Allergy Verified 12/22/24 16:11 General Stated Complaint: RespSymp JUANA: 2 Exam Narrative Exam Narrative: General Appearance: Alert and oriented. Vital signs: Ambulatory oxygen saturation 92% on room air. HEENT: Within normal limits. Respiratory: Wheezes and diminished lung function. Mild respiratory distress. Cardiovascular: Regular heart rate and rhythm. Gastrointestinal: Genitourinary: Lymphatic: Back, Musculoskeletal: Extremities: No calf swelling or tenderness. Skin: Warm and dry, no rash. Neurological: Normal. Psychiatric: Other observations: Course Vital Signs Vital signs: Vital Signs Temperature 36.7 C 12/22/24 15:44 Pulse 80 12/22/24 15:44 Respiratory Rate 20 12/22/24 15:44 Blood Pressure 190/104 H 12/22/24 15:44 Pulse Oximetry 94 12/22/24 15:44 Temperature 36.7 C 12/22/24 15:55 Pulse 78 12/22/24 19:10 Pulse 77 12/22/24 18:10 Respiratory Rate 18 12/22/24 19:10 Respiratory Effort Normal, Short of Breath 12/22/24 15:55 Respiratory Depth Normal 12/22/24 15:55 Blood Pressure 162/104 H 12/22/24 19:10 Blood Pressure Mean 121 12/22/24 17:16 Blood Pressure Position Sitting 12/22/24 15:55 Pulse Oximetry 92 12/22/24 19:10 Oxygen Delivery Method Aerosol Mask 12/22/24 17:42 Oxygen Flow Rate 0 12/22/24 16:06 Lab/Test Results Lab/Test Results: Laboratory Tests Range/Units 12/22/24 12/22/24 12/22/24 16:00 16:57 18:00 WBC (4.4-10.8) 10^3/uL 8.20 RBC (4.36-5.78) 10^6/uL 4.84 Hgb (13.5-17.5) g/dL 14.4 Hct (40.0-50.0) % 43.2 MCV (80-95) fL 89 MCH (27.0-33.0) pg 29.8 MCHC (32.0-36.0) % 33.3 RDW (11.8-14.1) % 12.0 Plt Count (130-400) 10^3/uL 262 MPV (8.0-11.0) fL 8.9 Immature Gran % % 0.2 Neutrophils % % 53.2 Lymphocytes % % 24.1 Monocytes % % 10.2 Eosinophils % % 11.1 Basophils % % 1.2 Nucleated RBC % (0.0-0.3) % 0.0 Absolute Neutrophils (1.2-6.7) 10^3/uL 4.35 Absolute Lymphocytes (1.2-3.4) 10^3/uL 1.98 Absolute Monocytes (0.1-0.8) 10^3/uL 0.84 H Absolute Eosinophils (0.0-0.7) 10^3/uL 0.91 H Absolute Basophils (0.0-0.2) 10^3/uL 0.10 Sodium Cancelled 144 Potassium Cancelled 3.8 Chloride Cancelled 107 Carbon Dioxide Cancelled 30.8 Anion Gap Cancelled 6.2 BUN Cancelled 13 Creatinine Cancelled 1.1 Est GFR (CKD-EPI 2020) Cancelled 71.77 Glucose Cancelled 100 Calcium Cancelled 8.6 Total Bilirubin Cancelled 0.4 AST Cancelled 24 ALT Cancelled 55 Alkaline Phosphatase Cancelled 68 Troponin I Cancelled 10 9 NT-Pro-B Natriuret Pep Cancelled 190 Total Protein Cancelled 7.3 Albumin Cancelled 3.8 COVID-19 Source Nasopharynx SARS-CoV-2 (PCR) (Negative) Negative Influenza Type A (PCR) (Negative) Negative Influenza Type B (PCR) (Negative) Negative RSV (PCR) (Negative) Negative Medical Decision Making Two negative troponins. Diagnostic blood work within normal limits. CBC, CMP, BNP with 2 negative troponins. Initial Assessment: 69-year-old male with history of COPD, pneumonia, DVT, hypertension, presents with shortness of breath and cough since Sunday. Denies fever, chills, hemoptysis, calf pain, swelling, recent surgeries, long drives. Mild respiratory distress, wheezes, diminished breath sounds. Alert and oriented. Cardiac rate and rhythm regular. Ambulatory oxygen saturation 92% on room air. Low suspicion for coronary artery issues. ED Course: - Two troponins negative. - Diagnostic blood work within normal limits. - CBC, CMP, BNP normal. - Placed on prednisone for 5 days and doxycycline for COPD exacerbation. - Advised regular use of rescue inhaler. - Return precautions reviewed, patient expressed understanding. Final Assessment: COPD exacerbation likely given history and symptoms. Treatment includes prednisone, doxycycline, and regular use of rescue inhaler. Diagnostic tests normal, low suspicion for coronary artery issues. Clinical Impression: - COPD exacerbation Disposition: - Discharge MDM Components Evaluation: - Number of Differential Diagnoses or Management Options: COPD exacerbation - Amount and Complexity of Data Reviewed: Two troponins, CBC, CMP, BNP - Risk of Complication and Morbidity or Mortality: Low suspicion for coronary artery issues, managed with medications and inhaler. Quality:SDOH Health Related Social Needs: No Data to Display PFSH All Active Problems (Updated 12/22/24 @ 18:58 by NIMO Law) COPD exacerbation (Acute) Dupuytren's contracture of left hand (Acute) Pulmonary embolism (Chronic) COPD exacerbation (Acute) Pneumonia (Acute) Breath shortness (Acute) Dupuytren's contracture of right hand (Acute) s/p partial release Nodular fasciitis (Acute) At risk for stress ulcer (Acute) DVT prophylaxis (Acute) COPD with exacerbation (Acute) HTN (hypertension) (Chronic) COPD (chronic obstructive pulmonary disease) (Chronic) Emphysematous bleb of lung (Acute) repeat cxr shows no signs of recurrence of PTX does have adaptive physical education specialist he follows up with. I did find an old CT chest and reviewed w/ him. Does show signif changes from COPD. signif blebs throughout entire lung. pt is not surgical candidate. cont pulm toilet no restrictions on activity at this time can use oil to remove tape residue. f/u w/ pulm to see if can find a better combo of inhalers to improve breathing Ruptured emphysematous bleb (Acute) on left lung Medical History (Updated 12/22/24 @ 18:58 by NIMO Law) Spontaneous pneumothorax COPD (chronic obstructive pulmonary disease) Surgical History Colonoscopy - MAC (07/07/16) Arthroplasty of knee Social History Smoking/Tobacco Use Status: Former Tobacco Use Pack-years: 51 Tobacco: How many years used: 51 Smoking risk assessment performed?: Yes Alcohol Intake: current Alcohol Intake frequency: a few times a week Alcohol type: beer and hard liquor Drug use: Never Substance use type: does not use Household members: other Details: has a boarder to whom he rents a room Housing: apartment Current gender identity: male Do you feel safe at home: Yes Do you feel safe in your relationship?: Yes Additional Social history: 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
== END 2024-12-22 19:12 | disposition home or self-care (01) ==
PROVIDERS: Emergency Provider Physician Assistant; PCP Family Medicine
DX: J44.1 Chronic obstructive pulmonary disease with (acute) exacerbation (principal); I10 Essential (primary) hypertension
CPT/HCPCS: 36415; 80053; 87637; 93005; 94640; 96374; 99284; 71046; 83880; 84484; 85025; 93010; J2919; J7620

== ENCOUNTER 2025-01-27 04:02 | Outpatient (CLI) | payer MEDICARE, BC, SELFPAY ==
--- NOTE | 2025-01-27 13:34 | W.NUTRFU ---
Date of service: 01/27/25 Time of Service: 12:30 Nutrition Note NOTE: Jimmy referred to nutrition for wt mgt. Diet assessed as low in fiber and high in added sugars and refined starch (processed food). He drinks sugar free soda. Typically eats breakfast and dinner with a snack mid-day. Breakfast has been a donut with coffee lately (shared this is zero fiber and no protein and high in added sugar) and then will have flavored yogurt with ritz crackers (also low fiber and high sugar/refined starch) or and englishs muffine with jelly (same thing). Applauded his changes that result in no more salt shaker use and trying to eat more fish. Focused on fiber, added sugar and refined starches and educated in this area for most of appt. Will place follow up call x 1 month to check in and offer follow up visit Time Spent in Nutritional Counseling and Treatment: 45 min
== END 2025-01-27 04:03 | disposition home or self-care (01) ==
LOC: DS 04:02
PROVIDERS: PCP Family Medicine; Visit Provider Dietitian, Registered
DX: E66.9 Obesity, unspecified (principal)
CPT/HCPCS: 00123; 97802

== ENCOUNTER 2025-05-04 12:15 | Outpatient (CLI) | payer MEDICARE, BC, SELFPAY ==
[2025-05-04 10:47] LABS: ALT 30 U/L (16-63); AST 24 U/L (15-37); Albumin 3.9 g/dL (3.4-5.0); Alkaline Phosphatase 78 U/L (46-116); Anion Gap 7.3 mmol/L (3-11); BUN 15 mg/dL (7-18); Bilirubin, Total 0.7 mg/dL (0.2-1.0); CO2 31.7 mmol/L (21.0-32.0); Calcium 9.3 mg/dL (8.5-10.1); Calculated LDL 152 mg/dL (<100); Chloride 101 mmol/L (98-107); Cholesterol 214 mg/dL (<200); Estimated GFR 71.32 (mL/min/1.73m2); Glucose 102 mg/dL (74-106); HDL Cholesterol 48 mg/dL (>or=40); Potassium 4.4 mmol/L (3.5-5.1); Sodium 140 mmol/L (136-145); Total Protein 7.4 g/dL (6.4-8.2); Triglyceride 74 mg/dL (<150)
== END 2025-05-04 12:16 | disposition home or self-care (01) ==
LOC: LBO 12:16
PROVIDERS: PCP Family Medicine; Visit Provider Family Medicine
DX: E78.5 Hyperlipidemia, unspecified (principal)
CPT/HCPCS: 36415; 80053; 80061

== ENCOUNTER 2025-05-14 02:59 | Outpatient (CLI) | payer MEDICARE, BC, SELFPAY ==
--- NOTE | 2025-05-14 | DI.NM_ITS ---
APPROVED REPORT Exam: Pharmacologic Patient Location: Out-Patient Room/Bed: Stress Nurse: Francisco Monsivais RN Ordering Provider:HIRAM PEREZ, Contact Number: [phone] BMI: 32.68 Baseline Rhythm: Sinus Rhythm. Indications: Chest Pain, unspecified; Left Sided Chest Pain. Medical History Medical History: ASHD; HLD; HTN; Obesity; BROWN; PE; Thromboembolism of the Vein; Recurrent PNA; COPD; GERD; Edema of the Lower Legs; Dyspnea; Hyperglycemia; CAD; Depression. Cardiac Medications: Albuterol Sulfate; Anoro Ellipta; Anuity Ellipta; Azithromycin; Apixaban; Folic Acid; Lisinopril; Omeprazole; Oxygen at 4L/min w/ activity; Sildenafil. Allergies: Bactrim. Cardiac Risk Factors: Family Hx; HLD; HTN; CVD; COPD; Former Smoker; Obesity. Previous Cardiac Procedures: None. Pretest Chest Pain Characteristics: None. Exercise History: Indeterminate. Physical Disabilities: None. Lung Sounds: Clear bilaterally throughout, anterior and posterior. Heart Sounds: S1 and S2 auscultated. Stress Test Details Test: Pharmacologic stress was paired with low level exercise. Reason for pharmacologic stress test: Elevated diastolic resting BP. Nuclear Acquisition: Rest Tc-99m/Stress Tc-99m 1 day Rest Isotope: Tc-99m Sestamibi. Dose: 12.0 Date: 05/14/2025 Injection Time: 1100 Stress Isotope: Tc-99m Sestamibi. Dose: 36.0 Date: 05/14/2025 Injection Time: 1300 HR Resting HR Supine: 63 bpm Max Heart Rate (APMHR): 148 bpm Resting HR Standin bpm Target HR (85% APMHR): 126 bpm Max HR Achieved: 110 bpm % of APMHR: 74 Recovery HR: 65 bpm BP Resting BP Supine: 160/100 mmHg Resting BP Standin/100 mmHg Max BP: 172/108 mmHg Recovery BP: 160/102 mmHg ECG Resting ECG: Sinus Rhythm. Ectopy: None. Stress ECG: Sinus Tachycardia. ST Change: No significant ST segment changes noted; Nondiagnostic low heart rate. Arrhythmia: Rare PVC's. Recovery ECG: Sinus Rhythm. Recovery ST Change: No significant ST segment changes noted; Nondiagnostic low heart rate. Recovery Arrhythmia: None. Clinical Stress Symptoms: None. Angina Score: None Rate Pressure Product: 31736 Stress ECG Conclusion 1. Resting electrocardiogram showed low voltage and late transition 2. Patient underwent testing using a combination of low-level exercise and pharmacologic stress with regadenoson 3. Peak heart rate achieved was 74% of maximal predicted for age 4. The electrocardiographic portion of the test was nondiagnostic 5. See MPI report Hazel Treadmill Score is which is Moderate risk. Stress Test Summary STAGE HR BP SpO2 Symptoms NOTES Supine 63 160/100 96 Standing 71 148/100 94 1 min post Lexiscan injection 89 90 3 min post Lexiscan injection 89 166/80 92 6 min post Lexiscan injection 69 172/108 96 9 min post Lexiscan injection 65 160/102 96 Lexiscan protocol chosen due to pt.'s elevated diastolic resting BP. Pt. denied any side effects from the lexiscan during the stress test. Pt. denied any chest pain/pressure or dyspnea prior to or following the stress test. Pt. was encouraged to monitor his BP's more frequently at home due to his supine BP's being elevated. Pt. was also educated regarding the s/s of an emergency to be aware of and of the need to come to the ED if he experiences any of them. Pt. verbalized understanding and stated that he would do so. Pt. was conversing pleasantly with nursing staff upon leaving the Stress Lab and left ambulatory in no apparent distress. MPI Conclusion Myocardial perfusion is normal. There is no ischemia or evidence of prior infarction Ejection fraction appears normal with normal wall motion
[2025-05-14] MEDS: Regadenoson 0.4 MG/5 ML SYR IVP (12:59)
== END 2025-05-14 03:19 ==
LOC: DI 02:59
PROVIDERS: PCP Family Medicine; Visit Provider Internal Medicine Cardiovascular Disease
DX: R07.9 Chest pain, unspecified (principal)
CPT/HCPCS: 78452; 93016; 93018; 93017; J2785